=== PATIENT | female | born 1945 | race Caucasian/White ===

== ENCOUNTER → 2018-03-17 01:29 | Outpatient (CLI) | payer OTHER, SELFPAY ==
[2018-03-17 10:34] LABS: INR 2.5 (1.0-3.5); Prothrombin Time 23.3 sec (9.3-10.8)
== END ==
PROVIDERS: PCP Family Medicine; Visit Provider Family Medicine
DX: I48.91 Unspecified atrial fibrillation (principal); Z79.01 Long term (current) use of anticoagulants
CPT/HCPCS: 36415; 85610

== ENCOUNTER 2018-04-24 01:20 | Outpatient (CLI) | payer OTHER, SELFPAY ==
[2018-04-24 08:28] LABS: Abs Immature Grans 0.04 k/cumm (0.0-0.09); Absolute Basophil Count 0.04 k/cumm (0.0-0.2); Absolute Eosinophil Count 0.52 k/cumm (0.0-0.7); Absolute Lymphocyte Count 1.97 k/cumm (1.2-3.4); Absolute Monocyte Count 0.82 k/cumm (0.11-0.7); Absolute Neutrophil Count 5.77 k/cumm (1.2-6.7); Basophils % 0.4; Eosinophils % 5.7; HCT 30.5 % (36.0-46.0); HGB 9.3 g/dL (12.0-15.5); Immature Grans % 0.4; Lymphocytes % 21.5; Mean Corp. HGB Concentration 30.5 g/dL (32.0-36.0); Mean Corpuscular Volume 88.4 fL (80-95); Mean Platelet Volume 8.2 fL (8.0-11.0); Platelet Count 546 x1000/uL (130-400); RBC 3.45 m/cumm (4.00-5.20); RBC Distribution Width 16.6 % (11.7-14.6); White Blood Cell Count 9.16 k/cumm (4.4-10.8)
[2018-04-24 08:39] LABS: Prothrombin Time 36.9 sec (9.3-10.8)
[2018-04-24 08:49] LABS: Hypochromasia 2+; Polychromasia Present
[2018-04-24 09:23] LABS: Anion Gap 10.2 mmol/L (3-11); BUN 61 mg/dL (7-18); CO2 24.8 mmol/L (21.0-32.0); CREATININE 2.03 mg/dL (0.55-1.02); Calcium 8.6 mg/dL (8.5-10.1); Chloride 105 mmol/L (98-107); Estimated GFR 24.14 (mL/min/1.73m2); Glucose 100 mg/dL (70-100); Potassium 5.4 mmol/L (3.5-5.1); Sodium 140 mmol/L (136-145)
== END 2018-04-24 01:40 ==
PROVIDERS: PCP Family Medicine; Visit Provider Family Medicine
DX: I48.91 Unspecified atrial fibrillation (principal); Z79.01 Long term (current) use of anticoagulants; N18.9 Chronic kidney disease, unspecified
CPT/HCPCS: 36415; 80048; 85025; 85610

== ENCOUNTER 2018-05-07 08:21 | Inpatient (IN) | payer OTHER, SELFPAY ==
[2018-05-07] VITALS (99 sets, daily range): BP systolic 57–145; BP diastolic 22–95; PULSE 47–91; RESP 14–31; TEMP 36–37.1; O2SAT 76–100
--- NOTE | 2018-05-07 08:35 | DI.RAD_ITS ---
SYMPTOM/DIAGNOSIS: SOB PA AND LATERAL CHEST: 05/07/18 The heart is enlarged. There is some prominence of pulmonary interstitial markings raising the possibility of mild chronic CHF vs fibrosis. Comparison with previous examinations shows little interval change in appearance in comparison with examination of 01/26/2015. No gross pleural effusion seen. CONCLUSION: Cardiomegaly with question mild chronic CHF vs fibrotic change.
[2018-05-07 08:49] LABS: Abs Immature Grans 0.07 k/cumm (0.0-0.09); Absolute Basophil Count 0.06 k/cumm (0.0-0.2); Absolute Eosinophil Count 0.43 k/cumm (0.0-0.7); Absolute Lymphocyte Count 2.01 k/cumm (1.2-3.4); Absolute Monocyte Count 0.76 k/cumm (0.11-0.7); Basophils % 0.5; Eosinophils % 3.7; HCT 22.3 % (36.0-46.0); Immature Grans % 0.6; Lymphocytes % 17.2; Mean Corpuscular Hemoglobin 26.6 pg (27.0-33.0); Mean Corpuscular Volume 88.5 fL (80-95); Mean Platelet Volume 8.7 fL (8.0-11.0); Monocytes % 6.5; Neutrophils % 71.5; Platelet Count 543 x1000/uL (130-400); RBC 2.52 m/cumm (4.00-5.20); RBC Distribution Width 16.6 % (11.7-14.6); White Blood Cell Count 11.66 k/cumm (4.4-10.8)
--- NOTE | 2018-05-07 08:50 | ED.GENADUL_ITS ---
Discharge Plan Disposition Patient Disposition: [facility] INPATIENT Condition: Stable Discharge Details Chief Complaint: Palpitatns Clinical Impression: Acute hyperkalemia, Anemia, SOB (shortness of breath), Community acquired pneumonia, Acute kidney injury, Supratherapeutic INR Primary Care Provider: Cesar Nye ED Provider: Regan Georges Home Meds and New Rx's Prescriptions: No Action albuterol sulfate 90 mcg/actuation HFA aerosol inhaler 2 puff IH QID PRNRF: 0 dofetilide 500 mcg capsule 500 mcg PO Q12H RF: 0 blood sugar diagnostic [Accu-Chek Vickie Plus test strp] strip .ROUTE .MEDSUPPLY Qty: 20 RF: 0 blood sugar diagnostic strip .ROUTE .MEDSUPPLY Qty: 20 RF: 0 furosemide [Lasix] 20 mg tablet 20 mg PO DAILY RF: 0 levothyroxine 25 mcg capsule 25 mcg PO DAILY RF: 0 lisinopril 5 mg tablet 5 mg PO BID RF: 0 magnesium chloride 64 mg tablet,delayed release (DR/EC) 64 mg PO BID RF: 0 metformin 500 mg tablet 500 mg PO BID RF: 0 metoprolol succinate 100 mg tablet extended release 24 hr 100 mg PO DAILY RF: 0 simvastatin 10 mg tablet 10 mg PO QPM RF: 0 warfarin 5 mg tablet 5 mg PO DIRECTED RF: 0 Medical Decision Making This is a pleasant 72-year-old female with history of A. fib, who takes the antiarrythmic Tycosin who presents today for palpitations, fatigue and shortness of breath. Her symptoms began this morning, she took her antiarrhythmic medication and had significant improvement/near resolution of her symptoms. She continues to be short of breath and fatigue though. Last stress test was 1 year ago. Physical exam shows no significant abnormalities. She denies any systemic symptoms of fever, chills, or productive cough. We will evaluate for potential electrolyte abnormalities, perform EKG and chest x- ray, and reassess the patient. EKG 8: 31 Rate 73, intervals normal, sinus rhythm, no ST elevation or depression, no Q waves. No T wave inversions. Minimal peaking of the T waves in V3, no other abnormalities. 10:17 a.m. Patient's laboratory workup has returned. She does demonstrate mild anemia at 6.7, hyperkalemia, acute kidney injury, elevated BUN, and supratherapeutic INR at 4.9. Chest x-ray does show questionable pneumonia in the retrocardiac region. The patient denies any history of melena, diarrhea, or dark tarry stools. We will perform a Hemoccult however I feel she is certainly not having a severe GI bleed and does not require surgical intervention at this time. There may be a chronic component to this anemia with her supratherapeutic INR. We will start Rocephin for community-acquired pneumonia, however she is allergic to doxycycline and tetracycline's so we will give azithromycin with monitoring for her community-acquired pneumonia. She will get albuterol, calcium gluconate, and 5 units of insulin secondary to her renal failure for her hyperkalemia. We will hold off on the bicarb secondary to her renal issues. We will hold on her Coumadin dosing at this time. With no significant active bleeding I do not think that PCC or IV vitamin K is indicated. EKG shows no evidence of STEMI. No significant arrhythmia. I discussed the case with Dr. olson, he agrees with the assessment and plan. The patient will be admitted to the ICU for further management I have extensively reviewed the treatment plan with the patient. I have addressed all patient concerns at this time. I have also discussed the plan with the admitting physician and they agree with the current assessment and plan and have agreed to assume responsibility for the patient. All parties demonstrate verbal understanding and agreement with our assessment and plan at this time. HPI General Date/Time Provider Initiated Documentation: 05/07/18 08:22 . HPI Narrative: This is a pleasant 72-year-old female with a past medical history of atrial fibrillation for which she received an ablation and now take Tykosin daily, as well as chronic kidney disease, Coumadin, diabetes, hypertension, and thyroid disease. She presents today with palpitations, fatigue, and shortness of breath. Patient states that this morning when she awoke at 3 AM she noticed some occasional palpitations but went back to bed. This morning when she awoke at 8 AM she felt more noticeable palpitations, fatigue and shortness of breath. She took her antiarrhythmic medication, and since then has had a resolution of the palpitations but the continuation of her other symptoms. She denies any chest pressure, chest heaviness, arm pain neck pain or shoulder pain. No radiation of her symptoms. Her symptoms are worsened with exertion, improved by nothing aside for her medication. She denies any cough, fever, chills, headache, fainting, numbness, tingling, weakness. She denies any other systemic symptoms. She denies any history of cardiac disease. Last stress test is 1 year ago and it was normal. She does not smoke or drink. She denies any pertinent family history, recent surgeries, or IV or illicit drug use Related Data Home Medications Medication Instructions Recorded Confirmed albuterol sulfate HFA 90 2 puff IH QID PRN 04/17/18 05/07/18 mcg/actuation aerosol inhaler blood sugar diagnostic strips #20 each 04/17/18 04/17/18 blood sugar diagnostic strips #20 each 04/17/18 04/25/18 dofetilide 500 mcg capsule 500 mcg PO Q12H 04/17/18 05/07/18 furosemide 20 mg tablet 20 mg PO DAILY 04/17/18 05/07/18 levothyroxine 25 mcg capsule 25 mcg PO DAILY 04/17/18 05/07/18 lisinopril 5 mg tablet 5 mg PO BID tab 04/17/18 05/07/18 magnesium 64 mg (magnesium 64 mg PO BID tab 04/17/18 05/07/18 chloride) tablet,delayed release metformin 500 mg tablet 500 mg PO BID 04/17/18 05/07/18 metoprolol succinate ER 100 mg 100 mg PO DAILY 04/17/18 05/07/18 tablet,extended release 24 hr simvastatin 10 mg tablet 10 mg PO QPM 04/17/18 05/07/18 warfarin 5 mg tablet 5 mg PO DIRECTED tab 04/17/18 05/07/18 Allergies Allergy/AdvReac Type Severity Reaction Status Date / Time aspirin Allergy Hives Unverified 05/07/18 08:51 Penicillins Allergy Unverified 05/07/18 08:51 tetracycline Allergy Unverified 05/07/18 08:51 adhesive AdvReac Intermediate Topical Unverified 05/07/18 08:51 Irritation Review of Systems Review of Systems All systems reviewed & are unremarkable except as noted in HPI and below PFSH Family History Mother Thoracic aneurysm, ruptured Personal history of malignant neoplasm Father Heart disease Myocardial infarction Cerebrovascular accident Grandfather Heart disease Cerebrovascular accident Grandfather Heart disease Grandmother Heart disease Grandmother Personal history of malignant neoplasm Social History household members: other details: 5 current occupational status: employed current occupation: [employer] frequency: 1-2 times per week duration: 45-60 minutes/day Smoking/Tobacco Use Status: Former Tobacco Use how long ago did patient quit smokin alcohol intake: never Surgical History Abdominal hysterectomy Appendectomy Bilateral salpingectomy with oophorectomy Recurrent major depression in partial remission (~10/2012) Replacement of total knee joint (~12/2007) Sigmoidoscopy (~08/2009) Exam Narrative Exam Narrative: 1.Const: Well-nourished, Well-developed, appearing stated age 2.Eyes: PERRL, no conjunctival injection, and symmetrical lids. 3.ENT: Atraumatic external nose and ears. Moist MM. Neck: Symmetric, trachea midline, No thyromegaly. 4.CVS: +S1/S2, regular, no arrhythmia, no murmurs or gallops. Peripheral pulses 2+ and equal in all extremities. Brisk capillary refill in all extremities. Radial pulses are +2 bilaterally. 5.RESP: Unlabored respiratory effort. Clear to auscultation bilaterally. No wheezes rales or rhonchi 6.GI: Soft, Nontender/Nondistended, No hepatosplenomegaly. No guarding or rebound. Rectal exam performed at bedside demonstrated no gross melanotic stool. Stool was brown in color. No active evidence of clots. 7.MSK: Normocephalic/Atraumatic, Extremities w/o deformity or ttp No cyanosis or clubbing, Normal movement of all extremities 8.Skin: Warm, Dry. No rashes or lesions. 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 Sensation grossly intact, no focal neurologic deficits. 10.Psych: (AAO) x3. Appropriate mood and affect
[2018-05-07 09:02] LABS: Absolute Neutrophil Count 8.34 k/cumm (1.2-6.7); Prothrombin Time 45.4 sec (9.3-10.8)
[2018-05-07 09:03] LABS: HGB 6.7 g/dL (12.0-15.5)
[2018-05-07 09:11] LABS: ALT 19 U/L (12-78); AST 14 U/L (15-37); Albumin 2.7 g/dL (3.4-5.0); Alkaline Phosphatase 56 U/L (46-116); Anion Gap 11.4 mmol/L (3-11); Bilirubin, Total 0.3 mg/dL (0.2-1.0); CO2 21.6 mmol/L (21.0-32.0); CREATININE 2.71 mg/dL (0.55-1.02); Calcium 8.6 mg/dL (8.5-10.1); Chloride 106 mmol/L (98-107); Glucose 143 mg/dL (70-100); Magnesium 2.4 mg/dL (1.8-2.4); Potassium 5.6 mmol/L (3.5-5.1); Sodium 139 mmol/L (136-145); TSH 3.22 uIU/mL (0.358-3.74)
[2018-05-07 09:12] LABS: Anisocytosis 1+; BUN 148 mg/dL (7-18); Diff Comment RBC Morph Reviewed; Troponin I < 0.02 ng/mL (0.00-0.06)
[2018-05-07 09:13] LABS: Basophilic Stippling Present; Hypochromasia 1+; Polychromasia Present
--- NOTE | 2018-05-07 09:18 | DI.VRAD_ITS ---
EXAM: XR Chest, 2 Views EXAM DATE/TIME: 05/07/2018 8:36 AM CLINICAL HISTORY: 72 years old, female; Signs and symptoms; Shortness of breath TECHNIQUE: XR of the chest, 2 views. COMPARISON: CR CHEST 2 VIEWS PA,LAT 01/26/2015 7:30 PM FINDINGS: Lungs: Mild opacity in the retrocardiac region may represent mild atelectasis or pneumonia. Pleural space: Unremarkable. No pleural effusion. No pneumothorax. Heart/Mediastinum: Cardiomegaly and mild vascular prominence may represent interstitial edema. Bones/joints: Degenerative changes in the thoracic spine Osseous structures are stable IMPRESSION: 1. Cardiomegaly and mild vascular prominence may represent interstitial edema. 2. Mild opacity in the retrocardiac region may represent mild atelectasis or pneumonia. Dictated and Authenticated by: Rachael Castro MD. Ordering:AISHA ROBERTS MD
[2018-05-07 09:20] LABS: INR 4.9 (1.0-3.5)
[2018-05-07] MEDS: Insulin REGULAR-Human 100 UNITS/ML UNIT SC (09:39)
[2018-05-07] MEDS: Albuterol 2.5 MG/3 ML INH SOLN VIAL 7.5 MG UPD (09:42)
[2018-05-07] MEDS: Calcium Gluconate 4.65 MEQ/10 ML VIAL 4.65 MG IVP (09:42)
[2018-05-07] MEDS: AZITHROMYCIN 500 MG in Normal Saline 250 ML 250 MG IVPB (10:33)
--- NOTE | 2018-05-07 16:17 | HPE_ITS ---
Date of service: 05/07/18 Time of Service: 16:04 Assessment and Plan (1) GI bleeding: Start date: 05/07/18 Current visit: Yes Status: Acute Upper GI bleed based on history. She is on warfarin anticoagulation for atrial fibrillation. She is hemodynamically stable. We will hold on reversing the warfarin at this point. Transfuse 1 unit of packed red cells. Monitor vital signs. She will need upper and lower endoscopy once stabilized. I did discuss the case with Dr. Ferreira from general surgery and would consult her if needed. I think the elevated BUN and creatinine are related to the metabolizing of acute blood loss in the GI tract. (2) Hyperkalemia: Current visit: Yes Status: Acute Potassium mildly elevated at 5.6. She got calcium gluconate and insulin in the ER. Rechecking BMP this afternoon. Will monitor and treat accordingly. (3) Atrial fibrillation: Current visit: Yes Status: Chronic She is in a sinus rhythm, rate well controlled. Or holding the warfarin. Continue the Tikosyn. (4) Diabetes mellitus: Current visit: No Status: Chronic Controlled with just oral metformin which we are holding. Will check fingersticks and provide sliding scale coverage. History of Present Illness Chief Complaint: GI bleeding on anticoagulation Narrative: This is a 72-year-old woman on warfarin because of paroxysmal atrial fibrillation who began to feel increasingly weak and fatigued over the last 24 hours. She recently had a stiff neck for the last 3 days treating it with acetaminophen. She awoke during the night feeling palpitations, her eyes felt heavy. She took her Tikosyn and was feeling somewhat better. She self-referred to the emergency room. In the emergency room she was in a sinus rhythm at a normal rate. Her initial labs showed a hemoglobin of 6.7 and potassium elevated at 5.6. Her BUN elevated at 148 and creatinine 2.71. INR was 4.9. A chest x-ray showed a question of a retrocardiac infiltrate. She received ceftriaxone and azithromycin and was ordered for 1 unit of packed red cells. Her anticoagulation was not reversed. Review of Systems Constitutional Reports lethargy, Reports weakness and Reports other (Eyes felt heavy) Cardiovascular Denies chest pain, Reports irregular heart rhythm and Reports dyspnea on exertion Respiratory Denies cough and Reports dyspnea on exertion Comments: No PND Gastrointestinal Denies abdominal pain, Reports melena (She has large hemorrhoids and occasionally sees bright red blood, recently saw some blackish colored stools), Denies hematochezia, Denies tenesmus, Reports change in stool character, Denies coffee ground emesis and Denies excessive flatus Genitourinary Denies dysuria Musculoskeletal Denies arthralgias Integumentary/Breasts Denies bleeding lesions and Denies new lesions Neurologic Reports system reviewed and no additional complaints, except as docu and Reports weakness Hematologic/Lymphatic Denies easy bruising PFSH Family History Mother Thoracic aneurysm, ruptured Personal history of malignant neoplasm Father Heart disease Myocardial infarction Cerebrovascular accident Grandfather Heart disease Cerebrovascular accident Grandfather Heart disease Grandmother Heart disease Grandmother Personal history of malignant neoplasm Medical History GI bleeding (Acute) H/O hysterectomy for benign disease (Chronic) Diverticulitis (Chronic) Diabetes type 2, controlled (Chronic) Hypothyroid (Chronic) Atrial fibrillation (Chronic) Social History household members: other details: 5 current occupational status: employed current occupation: [employer] frequency: 1-2 times per week duration: 45-60 minutes/day Smoking/Tobacco Use Status: Former Tobacco Use how long ago did patient quit smokin alcohol intake: never Surgical History History of appendectomy (Chronic) Replacement of total knee joint (~12/2007) Sigmoidoscopy (~08/2009) Abdominal hysterectomy Bilateral salpingectomy with oophorectomy Appendectomy Recurrent major depression in partial remission (~10/2012) Meds Home Medications Medication Instructions Recorded Confirmed Type albuterol sulfate HFA 90 2 puff IH QID PRN 04/17/18 05/07/18 History mcg/actuation aerosol inhaler blood sugar diagnostic strips #20 each 04/17/18 04/17/18 History blood sugar diagnostic strips #20 each 04/17/18 04/25/18 History dofetilide 500 mcg capsule 500 mcg PO Q12H 04/17/18 05/07/18 History furosemide 20 mg tablet 20 mg PO DAILY 04/17/18 05/07/18 History levothyroxine 25 mcg capsule 25 mcg PO DAILY 04/17/18 05/07/18 History lisinopril 5 mg tablet 5 mg PO BID tab 04/17/18 05/07/18 History magnesium 64 mg (magnesium 64 mg PO BID tab 04/17/18 05/07/18 History chloride) tablet,delayed release metformin 500 mg tablet 500 mg PO BID 04/17/18 05/07/18 History metoprolol succinate ER 100 mg 100 mg PO DAILY 04/17/18 05/07/18 History tablet,extended release 24 hr simvastatin 10 mg tablet 10 mg PO QPM 04/17/18 05/07/18 History warfarin 5 mg tablet 5 mg PO DIRECTED tab 04/17/18 05/07/18 History Allergies Allergy/AdvReac Type Severity Reaction Status Date / Time aspirin Allergy Hives Unverified 05/07/18 08:51 Penicillins Allergy Unverified 05/07/18 08:51 tetracycline Allergy Unverified 05/07/18 08:51 adhesive AdvReac Intermediate Topical Unverified 05/07/18 08:51 Irritation Exam Const General: cooperative, comfortable and no acute distress Nutritional Appearance: overweight Orientation: alert, awake and oriented x3 HENMT Head: normal to inspection Ears: hearing grossly normal bilaterally Face and sinus: normal facial exam Eyes General: appearance normal, both eyes and all related structures Sclera: sclerae normal Cornea: corneas normal Neck Neck: normal visual inspection (Limited by adipose) Chest Chest: normal inspection of the chest Resp Effort & Inspection: normal respiratory effort Auscultation: clear to auscultation bilaterally Cardio Rate: regular rate Rhythm: regular rhythm Heart Sounds: murmur (3/6 systolic murmur, harsh) GI Inspection: normal to inspection and large pannus Palpation: soft, no masses and nontender Rectal Exam - female: other (Heme positive by rectal exam in the emergency room) Skin General skin exam: no rashes or lesions noted Neuro General: no focal motor deficits Extrem General: no clubbing, cyanosis or edema Psych Appearance: grossly normal Mental Status: mental status grossly normal Speech and Movement: speech and movement normal Results Labs : 05/07/18 08:45 05/07/18 08:45 Laboratory Results - last 24 hr 05/07/18 05/07/18 05/07/18 08:45 08:45 08:45 WBC 11.66 H RBC 2.52 L Hgb 6.7 L* Hct 22.3 L MCV 88.5 MCH 26.6 L MCHC 30.0 L RDW 16.6 H Plt Count 543 H MPV 8.7 Immature Gran % 0.6 Neutrophils % 71.5 Lymphocytes % 17.2 Monocytes % 6.5 Eosinophils % 3.7 Basophils % 0.5 Absolute Neutrophils 8.34 H Absolute Lymphocytes 2.01 Absolute Monocytes 0.76 H Absolute Eosinophils 0.43 Absolute Basophils 0.06 Differential Comment Rbc morph reviewed RBC Morphology See below Polychromasia Present Hypochromasia 1+ Basophilic Stippling Present Anisocytosis 1+ PT 45.4 H INR 4.9 H* APTT 43.0 H Sodium 139 Potassium 5.6 H Chloride 106 Carbon Dioxide 21.6 Anion Gap 11.4 H BUN 148 H* Creatinine 2.71 H Estimated GFR/1.73 m2 17.30 Glucose 143 H Calcium 8.6 Magnesium 2.4 Total Bilirubin 0.3 AST 14 L ALT 19 Alkaline Phosphatase 56 Troponin I < 0.02 Total Protein 7.0 Albumin 2.7 L TSH 3.22 Patient ABO/Rh Antibody Screen Crossmatch 05/07/18 05/07/18 09:25 09:25 WBC RBC Hgb Hct MCV MCH MCHC RDW Plt Count MPV Immature Gran % Neutrophils % Lymphocytes % Monocytes % Eosinophils % Basophils % Absolute Neutrophils Absolute Lymphocytes Absolute Monocytes Absolute Eosinophils Absolute Basophils Differential Comment RBC Morphology Polychromasia Hypochromasia Basophilic Stippling Anisocytosis PT INR APTT Sodium Potassium Chloride Carbon Dioxide Anion Gap BUN Creatinine Estimated GFR/1.73 m2 Glucose Calcium Magnesium Total Bilirubin AST ALT Alkaline Phosphatase Troponin I Total Protein Albumin TSH Patient ABO/Rh Cancelled A Negative Antibody Screen Cancelled Negative Crossmatch See Detail
[2018-05-07 17:08] LABS: Anion Gap 12.9 mmol/L (3-11); CO2 20.1 mmol/L (21.0-32.0); CREATININE 2.58 mg/dL (0.55-1.02); Calcium 8.9 mg/dL (8.5-10.1); Chloride 107 mmol/L (98-107); Estimated GFR 18.31 (mL/min/1.73m2); Glucose 97 mg/dL (70-100); Sodium 140 mmol/L (136-145)
[2018-05-07 17:10] LABS: BUN 156 mg/dL (7-18); Potassium 6.1 mmol/L (3.5-5.1)
[2018-05-07] MEDS: Normal Saline 1,000 ML 75 ML IV (17:20)
--- NOTE | 2018-05-07 19:06 | NUR.NOTE ---
This nurse discovered that we did not carry the patient;s Dofetilide and asked pt to have spouse bring it in. He did so and this nurse looked up the medication on [employer] and also called the [facility] pharmacy service who also verified. This nurse then administered the medication and put the bottle in the drawer so that [facility] pharmacy can verify it in the AM. Nursing Note:
[2018-05-07] MEDS: Simvastatin 10 MG TAB PO (19:42)
[2018-05-07] MEDS: Magnesium Chloride 64 MG TABCR PO (19:42)
[2018-05-07] MEDS: Docusate Sodium 100 MG CAP PO (19:54)
[2018-05-07] MEDS: Normal Saline Flush 10 ML SYR IVP (21:15)
[2018-05-07] MEDS: Acetaminophen 325 MG TAB PO (21:54)
[2018-05-08] VITALS (91 sets, daily range): BP systolic 60–149; BP diastolic 23–85; PULSE 51–106; RESP 14–24; TEMP 35.6–36.9; O2SAT 91–100
[2018-05-08] MEDS: Acetaminophen 325 MG TAB PO (02:07)
[2018-05-08] MEDS: Levothyroxine 25 MCG TAB PO (06:34)
[2018-05-08 07:11] LABS: Abs Immature Grans 0.13 k/cumm (0.0-0.09); Absolute Eosinophil Count 0.38 k/cumm (0.0-0.7); Absolute Lymphocyte Count 2.65 k/cumm (1.2-3.4); Absolute Monocyte Count 0.84 k/cumm (0.11-0.7); Absolute Neutrophil Count 7.53 k/cumm (1.2-6.7); Basophils % 0.3; Eosinophils % 3.3; Immature Grans % 1.1; Lymphocytes % 22.9; Mean Corp. HGB Concentration 30.5 g/dL (32.0-36.0); Mean Corpuscular Hemoglobin 26.8 pg (27.0-33.0); Mean Corpuscular Volume 87.8 fL (80-95); Mean Platelet Volume 9.3 fL (8.0-11.0); Monocytes % 7.3; Neutrophils % 65.1; Platelet Count 435 x1000/uL (130-400); RBC 2.13 m/cumm (4.00-5.20); RBC Distribution Width 16.4 % (11.7-14.6); White Blood Cell Count 11.57 k/cumm (4.4-10.8)
[2018-05-08 07:15] LABS: Absolute Basophil Count 0.03 k/cumm (0.0-0.2)
[2018-05-08 07:19] LABS: HCT 18.7 % (36.0-46.0); HGB 5.7 g/dL (12.0-15.5)
[2018-05-08 07:26] LABS: Prothrombin Time 40.1 sec (9.3-10.8)
[2018-05-08 07:28] LABS: ALT 18 U/L (12-78); AST 15 U/L (15-37); Albumin 2.4 g/dL (3.4-5.0); Alkaline Phosphatase 44 U/L (46-116); Anion Gap 9.4 mmol/L (3-11); Bilirubin, Total 0.2 mg/dL (0.2-1.0); CO2 20.6 mmol/L (21.0-32.0); CREATININE 2.36 mg/dL (0.55-1.02); Calcium 8.5 mg/dL (8.5-10.1); Chloride 108 mmol/L (98-107); Estimated GFR 20.29 (mL/min/1.73m2); Glucose 111 mg/dL (70-100); Potassium 5.5 mmol/L (3.5-5.1); Sodium 138 mmol/L (136-145); Total Protein 6.1 g/dL (6.4-8.2)
[2018-05-08 07:38] LABS: INR 4.3 (1.0-3.5)
[2018-05-08 07:39] LABS: BUN 159 mg/dL (7-18)
[2018-05-08] MEDS: Normal Saline 1,000 ML 75 ML IV (08:02)
[2018-05-08] MEDS: Magnesium Chloride 64 MG TABCR PO (08:48)
[2018-05-08] MEDS: Phytonadione 5 MG TABLET PO (09:42)
--- NOTE | 2018-05-08 09:54 | PDOC.CMIN ---
- If Service Date Differs Date of service: 05/08/18 Time of Service: 09:54 Care Management Initial Assess REASON FOR HOSPITALIZATION:: GI bleed PAST MEDICAL HISTORY/PAST SURGICAL HISTORY:: A-fib, DM, restless leg, LAI, morbid obesity, hypothyroidisim, CHF, asthma, osteoarthritis, chronic kidney disease, depression. Surgical Hx: appendectomy,hysterectomy. 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. She lives with her spouse Bentley in [place], [place] she has two grown sons that live local. She enjoys caring for her 5 dogs. She is independent with ADL's and transportation. CURRENT FUNCTIONAL STATUS:: Maliha is lying in bed in the ICU her spouse is at her side. She states she does have a INR check it has been once a month recently. She does follow up with her provider frequently. She states she is feeling tierd she did just return from EGD. She states she was told she has bleeding ulcers and some where cauderized while in the OR. ADVANCE DIRECTIVES:: On file at [facility] agent Bentley Has patient been provided with information about the portal?: Yes Did the patient sign up for the portal?: No CODE STATUS:: Full Code INSURANCE COVERAGE / FINANCIAL ISSUES:: [email or web address] [facility] CURRENT HOME/COMMUNITY SERVICES/EQUIPMENT:: CPAP supplied by [facility] PRIMARY CARE PHYSICIAN:: POTENTIAL DISCHARGE NEEDS:: Follow up appointment with primary care scheduled prior to discharge. PATIENT/FAMILY EDUCATION NEEDS:: Discharge education, follow up plan of care, ask me three and self management discussion. ANTICIPATED BARRIERS TO DISCHARGE:: None identified at this time TRANSPORTATION:: Via private car with spouse at time of discharge PLAN:: Maliha is being cared for in the ICU. She will have an EGD today. Maliha's coumadin in on hold at this time. She will be discharged home when medically ready. She will need to have a follow up appointment scheduled with primary care provider prior to discharge. Anticipate no addtional services at time of discharge. CM to continue to provide support to patient and family discharge planning.
--- NOTE | 2018-05-08 10:07 | INITIAL_ITS ---
- If Service Date Differs Date of service: 05/08/18 Time of Service: 09:54 Care Management Initial Assess REASON FOR HOSPITALIZATION:: GI bleed PAST MEDICAL HISTORY/PAST SURGICAL HISTORY:: A-fib, DM, restless leg, LAI, morbid obesity, hypothyroidisim, CHF, asthma, osteoarthritis, chronic kidney disease, depression. Surgical Hx: appendectomy,hysterectomy. 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 She lives with her spouse Bentley in [place], [place] she has two grown sons that live local. She enjoys caring for her 5 dogs. She is independent with ADL's and transportation. CURRENT FUNCTIONAL STATUS:: Maliha is lying in bed in the ICU her spouse is at her side. She states she does have a INR check it has been once a month recently. She does follow up with her provider frequently. She states she is feeling tierd she did just return from EGD. She states she was told she has bleeding ulcers and some where cauderized while in the OR. ADVANCE DIRECTIVES:: On file at [facility] agent Bentley Has patient been provided with information about the portal?: Yes Did the patient sign up for the portal?: No CODE STATUS:: Full Code INSURANCE COVERAGE / FINANCIAL ISSUES:: [employer] [facility] CURRENT HOME/COMMUNITY SERVICES/EQUIPMENT:: CPAP supplied by [facility] PRIMARY CARE PHYSICIAN:: POTENTIAL DISCHARGE NEEDS:: Follow up appointment with primary care scheduled prior to discharge. PATIENT/FAMILY EDUCATION NEEDS:: Discharge education, follow up plan of care, ask me three and self management discussion. ANTICIPATED BARRIERS TO DISCHARGE:: None identified at this time TRANSPORTATION:: Via private car with spouse at time of discharge PLAN:: Maliha is being cared for in the ICU. She will have an EGD today. Maliha' s coumadin in on hold at this time. She will be discharged home when medically ready. She will need to have a follow up appointment scheduled with primary care provider prior to discharge. Anticipate no addtional services at time of discharge. CM to continue to provide support to patient and family discharge planning.
--- NOTE | 2018-05-08 10:37 | HPE_ITS ---
Date of service: 05/08/18 Time of Service: 09:30 Assessment and Plan (1) GI bleeding: Current visit: Yes Status: Acute A\\ 72 year old female admitted last night with anemia and melena on rectal exam. Had a large stool today which was black and tarry. Patient with history of back pain and neck stiffness who has been taking a lot of NSAID's. She also is on Coumadin and was supratherapeutic on admission. She was given 1 unit of blood last night and 2 more units right now as well as 1 unit of FFP. P\\ EGD under General anesthesia Risks, benefits and complications have been reviewed. Complications include but are not limited to bleeding, pain, perforation, aspiration and adverse reaction to the medications. More recommendations pending her EGD. History of Present Illness Chief Complaint: GI Bleed Consults Consult date: 05/08/18 Requesting physician: Gurpreet Lizarraga Narrative: Mrs. Iqbal is a 72 year old admitted with pneumonia and GI bleed. She had a few Melena type stools today and her Hgb droped to 5.2 after 1 unit of blood yesterday. She was also noted to be supratherapeutic on her Coumadin and this was not reversed when she was admitted. She denies any N/V or abdominal pain. She does relate taking increased amount of Advil for a stiff neck. She had a colonoscopy 5 years ago and was found to have diverticulosis and a adenomatous polyp. There is no family history of colon Cancer. Patient became slightly hypotensive this am but now Bp is stable. She is currently getting another 2 units of blood and FFP has been ordered. She was also given Vitamin K. PMHX is significant for obesity, hypertension, DM, Sleep apnea. Review of Systems Constitutional Reports fatigue and Reports lethargy Cardiovascular Denies chest pain, Denies chest pain at rest, Denies dyspnea and Reports dyspnea on exertion Respiratory Denies dyspnea and Reports dyspnea on exertion Gastrointestinal Reports as per HPI Endocrine Reports system reviewed and no additional complaints, except as docu and Reports fatigue PFSH Family History Mother Thoracic aneurysm, ruptured Personal history of malignant neoplasm Father Heart disease Myocardial infarction Cerebrovascular accident Grandfather Heart disease Cerebrovascular accident Grandfather Heart disease Grandmother Heart disease Grandmother Personal history of malignant neoplasm Medical History Hyperkalemia (Acute) GI bleeding (Acute) H/O hysterectomy for benign disease (Chronic) Diverticulitis (Chronic) Diabetes type 2, controlled (Chronic) Hypothyroid (Chronic) Atrial fibrillation (Chronic) Social History household members: other details: 5 current occupational status: employed 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 frequency: 1-2 times per week duration: 45-60 minutes/day Smoking/Tobacco Use Status: Former Tobacco Use how long ago did patient quit smokin alcohol intake: never Surgical History History of appendectomy (Chronic) Replacement of total knee joint (~12/2007) Sigmoidoscopy (~08/2009) Abdominal hysterectomy Bilateral salpingectomy with oophorectomy Appendectomy Recurrent major depression in partial remission (~10/2012) Meds Home Medications Medication Instructions Recorded Confirmed Type albuterol sulfate HFA 90 2 puff IH QID PRN 04/17/18 05/07/18 History mcg/actuation aerosol inhaler blood sugar diagnostic strips #20 each 04/17/18 04/17/18 History blood sugar diagnostic strips #20 each 04/17/18 04/25/18 History dofetilide 500 mcg capsule 500 mcg PO Q12H 04/17/18 05/07/18 History furosemide 20 mg tablet 20 mg PO DAILY 04/17/18 05/07/18 History levothyroxine 25 mcg capsule 25 mcg PO DAILY 04/17/18 05/07/18 History lisinopril 5 mg tablet 5 mg PO BID tab 04/17/18 05/07/18 History magnesium 64 mg (magnesium 64 mg PO BID tab 04/17/18 05/07/18 History chloride) tablet,delayed release metformin 500 mg tablet 500 mg PO BID 04/17/18 05/07/18 History metoprolol succinate ER 100 mg 100 mg PO DAILY 04/17/18 05/07/18 History tablet,extended release 24 hr simvastatin 10 mg tablet 10 mg PO QPM 04/17/18 05/07/18 History warfarin 5 mg tablet 5 mg PO DIRECTED tab 04/17/18 05/07/18 History Allergies Allergy/AdvReac Type Severity Reaction Status Date / Time aspirin Allergy Hives Unverified 05/07/18 08:51 Penicillins Allergy Unverified 05/07/18 08:51 tetracycline Allergy Unverified 05/07/18 08:51 adhesive AdvReac Intermediate Topical Unverified 05/07/18 08:51 Irritation Exam Const General: cooperative and no acute distress Nutritional Appearance: obese (BMI >50) morbidly obese Resp Effort & Inspection: normal respiratory effort Auscultation: clear to auscultation bilaterally Cardio Rate: regular rate Rhythm: regular rhythm Heart Sounds: no gallops, murmur and no rubs GI Palpation: soft and nontender Auscultation: normal bowel sounds Results Labs : 05/08/18 06:18 05/08/18 06:18 Laboratory Results - last 24 hr 05/07/18 05/07/18 05/08/18 09:25 16:45 06:18 WBC RBC Hgb Hct MCV MCH MCHC RDW Plt Count MPV Immature Gran % Neutrophils % Lymphocytes % Monocytes % Eosinophils % Basophils % Absolute Neutrophils Absolute Lymphocytes Absolute Monocytes Absolute Eosinophils Absolute Basophils PT INR Sodium 140 138 Potassium 6.1 H* 5.5 H Chloride 107 108 H Carbon Dioxide 20.1 L 20.6 L Anion Gap 12.9 H 9.4 BUN 156 H* 159 H* Creatinine 2.58 H 2.36 H Estimated GFR/1.73 m2 18.31 20.29 Glucose 97 111 H Calcium 8.9 8.5 Total Bilirubin 0.2 AST 15 ALT 18 Alkaline Phosphatase 44 L Total Protein 6.1 L Albumin 2.4 L Patient ABO/Rh A Negative Antibody Screen Negative Crossmatch See Detail 05/08/18 05/08/18 06:18 06:18 WBC 11.57 H RBC 2.13 L Hgb 5.7 L* Hct 18.7 L* MCV 87.8 MCH 26.8 L MCHC 30.5 L RDW 16.4 H Plt Count 435 H MPV 9.3 Immature Gran % 1.1 Neutrophils % 65.1 Lymphocytes % 22.9 Monocytes % 7.3 Eosinophils % 3.3 Basophils % 0.3 Absolute Neutrophils 7.53 H Absolute Lymphocytes 2.65 Absolute Monocytes 0.84 H Absolute Eosinophils 0.38 Absolute Basophils 0.03 PT 40.1 H INR 4.3 H* D Sodium Potassium Chloride Carbon Dioxide Anion Gap BUN Creatinine Estimated GFR/1.73 m2 Glucose Calcium Total Bilirubin AST ALT Alkaline Phosphatase Total Protein Albumin Patient ABO/Rh Antibody Screen Crossmatch
[2018-05-08] MEDS: Pantoprazole 40 MG VIAL IVP ×2 (11:08→20:23)
--- NOTE | 2018-05-08 12:02 | PHARADMIT ---
Admission Pharmacy Clinical Review ANEMIA Code Status Full Code Current Weight Wgt- 120 kg Renally Cleared and Narrow Therapeutic Index Meds CrCl~ 15.7 mL/min Meds-OK QTc Value / Action Taken na BP Control, Fever BP- 128/62 Tmax- 36.6C Electrolytes reviewed Na- 138 K+5.5 Mag-.4 DVT Prophylaxis No High INR Low H&H Opiate Usage / Scheduled Bowel Regimen Ordered No Yes Plt/SCr for Heparin / Enoxaparin Plts-435 SCr-2.36 INR for Warfarin INR-4.3 Got Vit-K H/H stable, WBC/Bands H&H-5.7/18.7 WBC- 11.57 Antibiotic appropriateness none Cultures and Sensitivities none Surgical ABX d/c within 24 hr NA DM control / Insulin Dosing BG-111 Aspart, Heart Failure (Check EF%) (KEELEY's, B-Block, Diuretics) Tikosyn, Lasix, Toprol-XL, IV to PO Switch No Home Meds Reviewed Yes Home Meds Not Ordered Warfarin, Lisinopril, MadChloride, Metformin, Comments Patient Own Dofetilide
--- NOTE | 2018-05-08 14:14 | DM INPTCON_ITS ---
DESCRIPTION/ASSESSMENT: Appreciate diabetes consult for Maliha Iqbal who is hospitalized with GI bleed. BMI 53 A1c 6.7 on 09/25. Home medication of 500mg Metformin twice daily. Hemoglobin 5.7. GFR 21. Blood sugars 107-130 not needing insulin correction at moderate level. INTERVENTION: Blood sugars excellent however they may not be accurate given the degree of iron deficiency and possible transfusions. No intervention suggested at this time. Will follow blood sugars and f/u as warranted. Will watch for symptoms of hypoglycemia.
[2018-05-08] MEDS: Albuterol/Ipratropium 3 ML UPD VIAL UPD (14:32)
[2018-05-08 16:18] LABS: HCT 21.4 % (36.0-46.0)
--- NOTE | 2018-05-08 16:18 | NUR.NOTE ---
DH documentation in worklist notes start and stop time of FFP given in or. this times are entered for him in [facility]
[2018-05-08 16:24] LABS: HGB 6.9 g/dL (12.0-15.5)
[2018-05-08 16:30] LABS: Potassium 5.1 mmol/L (3.5-5.1)
--- NOTE | 2018-05-08 16:43 | W.PM.PROGNOT ---
Assessment and Plan (1) GI bleeding: Current visit: Yes Status: Acute Acute GI bleed with active gastric ulcers. She is on IV Protonix twice daily and Carafate. Will keep n.p.o. overnight and trend her H&H. (2) Anemia: Current visit: Yes Status: Chronic Hemoglobin post 3 unit transfusion is 6.7. Will transfuse 2 more units of packed red cells. She has had 2 units of fresh frozen plasma (3) Atrial fibrillation with RVR: Current visit: Yes Status: Acute Heart rate has been stable and in a sinus rhythm. We will continue the dofetilide. She will not be a candidate for anticoagulation for at least 6 weeks. (4) Obstructive sleep apnea syndrome: Current visit: Yes Status: Acute She has her home CPAP unit. Continue to use as directed. (5) Hyperkalemia: Current visit: Yes Status: Acute Potassium level has been elevated. We are holding the lisinopril which she may need to be cautious with going forward. Some of this could be from metabolizing digested blood. Repeat level is down to 5.1. Subjective Patient reports: blood in stool Interval history since last seen: Patient admitted yesterday with presumed upper GI bleed. Overnight she had 2 large bloody bowel movements and this morning's hemoglobin was 5.7. She was taken to the OR by Dr. Deutsch for upper endoscopy and found to have numerous ulcers and also friability. She is now on IV PPI, Carafate , and getting further transfused. Her blood pressure did become somewhat soft mid morning and her home medications were held. She continues on the dofetilide. There has been no recurrent A. fib. She had an echocardiogram 2017 showing moderate aortic stenosis, normal LV function. Exam Narrative Exam Narrative: On exam she is sitting up in the chair, comfortable. Still not complaining of any abdominal pain or epigastric pain. Abdominal exam is benign. Objective Objective Clinical Data: Abnormal lab results 05/07/18 05/07/18 05/08/18 Range/Units 09:25 16:45 06:18 WBC (4.4-10.8) k/cumm RBC (4.00-5.20) m/cumm Hgb (12.0-15.5) g/dL Hct (36.0-46.0) % MCH (27.0-33.0) pg MCHC (32.0-36.0) g/dL RDW (11.7-14.6) % Plt Count (130-400) x1000/uL Absolute Neutrophils (1.2-6.7) k/cumm Absolute Monocytes (0.11-0.7) k/cumm PT (9.3-10.8) sec INR (1.0-3.5) Potassium 6.1 H* 5.5 H (3.5-5.1) mmol/L Chloride 108 H (98-107) mmol/L Carbon Dioxide 20.1 L 20.6 L (21.0-32.0) mmol/L Anion Gap 12.9 H (3-11) mmol/L BUN 156 H* 159 H* (7-18) mg/dL Creatinine 2.58 H 2.36 H (0.55-1.02) mg/dL Glucose 111 H (70-100) mg/dL Alkaline Phosphatase 44 L (46-116) U/L Total Protein 6.1 L (6.4-8.2) g/dL Albumin 2.4 L (3.4-5.0) g/dL Crossmatch See Detail 05/08/18 05/08/18 05/08/18 Range/Units 06:18 06:18 16:10 WBC 11.57 H (4.4-10.8) k/cumm RBC 2.13 L (4.00-5.20) m/cumm Hgb 5.7 L* 6.9 L* (12.0-15.5) g/dL Hct 18.7 L* 21.4 L (36.0-46.0) % MCH 26.8 L (27.0-33.0) pg MCHC 30.5 L (32.0-36.0) g/dL RDW 16.4 H (11.7-14.6) % Plt Count 435 H (130-400) x1000/uL Absolute Neutrophils 7.53 H (1.2-6.7) k/cumm Absolute Monocytes 0.84 H (0.11-0.7) k/cumm PT 40.1 H (9.3-10.8) sec INR 4.3 H* D (1.0-3.5) Potassium (3.5-5.1) mmol/L Chloride (98-107) mmol/L Carbon Dioxide (21.0-32.0) mmol/L Anion Gap (3-11) mmol/L BUN (7-18) mg/dL Creatinine (0.55-1.02) mg/dL Glucose (70-100) mg/dL Alkaline Phosphatase (46-116) U/L Total Protein (6.4-8.2) g/dL Albumin (3.4-5.0) g/dL Crossmatch Vital Signs Temperature 36.3 C L 05/08/18 14:51 Temperature Source Temporal Artery Scan 05/08/18 11:45 Pulse 90 05/08/18 14:51 Pulse 90 05/08/18 14:55 Respiratory Rate 20 05/08/18 14:51 Respiratory Effort Non-Labored 05/08/18 11:45 Respiratory Depth Normal 05/08/18 11:45 Respiratory Pattern Normal 05/08/18 11:45 Blood Pressure 141/61 H 05/08/18 14:55 Blood Pressure Mean 78 05/08/18 14:55 Blood Pressure Position Supine 05/08/18 11:45 Pulse Oximetry 99 05/08/18 15:45 Respiratory End-tidal CO2 32 05/08/18 14:51 Oxygen Delivery Method Nasal Cannula 05/08/18 15:45 Oxygen Flow Rate 2 05/08/18 15:45 Fraction of Inspired Oxygen (FIO2) 0 05/08/18 03:35 Pain Level 0 05/08/18 11:45 Intake & Output 05/07/18 05/08/18 05/08/18 23:59 11:59 23:59 Intake Total 1836 / 1836 2105 / 2105 1330 / 1330 Output Total 825 / 825 925 / 925 200 / 200 Balance 1011 / 1011 1180 / 1180 1130 / 1130 Weight 120.9 kg 120 kg Intake: IV 635 / 635 1000 / 1000 680 / 680 Oral 850 / 850 605 / 605 Blood Product 300 / 300 500 / 500 650 / 650 Frozen Plasma Unit 350 / 350 [id number] Frozen Plasma Unit 0 / 0 [id number] Rbc Leuko Reduced Unit 500 / 500 [id number] Rbc Leuko Reduced Unit 300 / 300 [id number] Rbc Leuko Reduced Unit 300 / 300 [id number] Other Rbc Leuko Reduced Unit [id number] Output: Urine 825 / 825 925 / 925 200 / 200 Other: Urine Color Yellow Yellow Yellow Urine Appearance Clear Clear Clear Urine Odor Normal Normal Comment Dipped positive for trace blood. Voiding to commode. Stool Occult Blood Positive Stool Size Large Smear Stool Characteristics Soft Black Black Bloody Emesis Description None Voiding Methods Bedside Commode Bedside Commode Bedside Commode Laboratory Results WBC 11.57 k/cumm (4.4-10.8) H 05/08/18 06:18 RBC 2.13 m/cumm (4.00-5.20) L 05/08/18 06:18 Hgb 6.9 g/dL (12.0-15.5) L* 05/08/18 16:10 Hct 21.4 % (36.0-46.0) L 05/08/18 16:10 MCV 87.8 fL (80-95) 05/08/18 06:18 MCH 26.8 pg (27.0-33.0) L 05/08/18 06:18 MCHC 30.5 g/dL (32.0-36.0) L 05/08/18 06:18 RDW 16.4 % (11.7-14.6) H 05/08/18 06:18 Plt Count 435 x1000/uL (130-400) H 05/08/18 06:18 MPV 9.3 fL (8.0-11.0) 05/08/18 06:18 Immature Gran % 1.1 05/08/18 06:18 Neutrophils % 65.1 05/08/18 06:18 Lymphocytes % 22.9 05/08/18 06:18 Monocytes % 7.3 05/08/18 06:18 Eosinophils % 3.3 05/08/18 06:18 Basophils % 0.3 05/08/18 06:18 Absolute Neutrophils 7.53 k/cumm (1.2-6.7) H 05/08/18 06:18 Absolute Lymphocytes 2.65 k/cumm (1.2-3.4) 05/08/18 06:18 Absolute Monocytes 0.84 k/cumm (0.11-0.7) H 05/08/18 06:18 Absolute Eosinophils 0.38 k/cumm (0.0-0.7) 05/08/18 06:18 Absolute Basophils 0.03 k/cumm (0.0-0.2) 05/08/18 06:18 Differential Comment Rbc morph reviewed 05/07/18 08:45 RBC Morphology See below 05/07/18 08:45 Polychromasia Present 05/07/18 08:45 Hypochromasia 1+ 05/07/18 08:45 Basophilic Stippling Present 05/07/18 08:45 Anisocytosis 1+ 05/07/18 08:45 PT 40.1 sec (9.3-10.8) H 05/08/18 06:18 INR 4.3 (1.0-3.5) H* D 05/08/18 06:18 APTT 43.0 sec (21.0-31.4) H 05/07/18 08:45 Sodium 138 mmol/L (136-145) 05/08/18 06:18 Potassium 5.1 mmol/L (3.5-5.1) 05/08/18 16:10 Chloride 108 mmol/L (98-107) H 05/08/18 06:18 Carbon Dioxide 20.6 mmol/L (21.0-32.0) L 05/08/18 06:18 Anion Gap 9.4 mmol/L (3-11) 05/08/18 06:18 BUN 159 mg/dL (7-18) H* 05/08/18 06:18 Creatinine 2.36 mg/dL (0.55-1.02) H 05/08/18 06:18 Estimated GFR/1.73 m2 20.29 (mL/min/1.73m2) 05/08/18 06:18 Glucose 111 mg/dL (70-100) H 05/08/18 06:18 Calcium 8.5 mg/dL (8.5-10.1) 05/08/18 06:18 Magnesium 2.4 mg/dL (1.8-2.4) 05/07/18 08:45 Total Bilirubin 0.2 mg/dL (0.2-1.0) 05/08/18 06:18 AST 15 U/L (15-37) 05/08/18 06:18 ALT 18 U/L (12-78) 05/08/18 06:18 Alkaline Phosphatase 44 U/L (46-116) L 05/08/18 06:18 Troponin I < 0.02 ng/mL (0.00-0.06) 05/07/18 08:45 Total Protein 6.1 g/dL (6.4-8.2) L 05/08/18 06:18 Albumin 2.4 g/dL (3.4-5.0) L 05/08/18 06:18 TSH 3.22 uIU/mL (0.358-3.74) 05/07/18 08:45 Patient ABO/Rh A Negative 05/07/18 09:25 Antibody Screen Negative 05/07/18 09:25 Crossmatch See Detail 05/07/18 09:25
[2018-05-08 16:52] LABS: Prothrombin Time 22.2 sec (9.3-10.8)
[2018-05-08] MEDS: Sucralfate 1 GM TAB PO ×2 (16:56→22:35)
[2018-05-08 17:01] LABS: INR 2.3 (1.0-3.5)
[2018-05-08] MEDS: Normal Saline Flush 10 ML SYR IVP ×4 (17:23→23:54)
[2018-05-08] MEDS: ACETAMINOPHEN 1,000 MG/100 ML BTL 400 MG IVPB ×2 (20:39→23:54)
[2018-05-09] VITALS (25 sets, daily range): BP systolic 102–152; BP diastolic 32–110; PULSE 53–74; RESP 15–24; TEMP 35.5–36.4; O2SAT 92–99
[2018-05-09] MEDS: Normal Saline 1,000 ML 125 ML IV (00:08)
[2018-05-09] MEDS: Sucralfate 1 GM TAB PO ×4 (04:40→21:51)
[2018-05-09] MEDS: Levothyroxine 25 MCG TAB PO (05:55)
[2018-05-09] MEDS: ACETAMINOPHEN 1,000 MG/100 ML BTL 400 MG IVPB ×4 (05:55→23:30)
[2018-05-09 07:19] LABS: HCT 25.7 % (36.0-46.0); HGB 8.3 g/dL (12.0-15.5); Mean Corp. HGB Concentration 32.3 g/dL (32.0-36.0); Mean Corpuscular Hemoglobin 28.1 pg (27.0-33.0); Mean Corpuscular Volume 87.1 fL (80-95); Mean Platelet Volume 9.1 fL (8.0-11.0); Platelet Count 356 x1000/uL (130-400); RBC 2.95 m/cumm (4.00-5.20); RBC Distribution Width 16.1 % (11.7-14.6); White Blood Cell Count 10.87 k/cumm (4.4-10.8)
--- NOTE | 2018-05-09 07:20 | ROE_ITS ---
Date of service: 05/08/18 Time of Service: 13:45 Operative Note DATE OF PROCEDURE: 05/08/18 PRE-OP DIAGNOSIS: Gi Bleed POST-OP DIAGNOSIS: same PROCEDURE: EGD with cautery SURGEON: Ludivina Deutsch ANESTHESIA: GETA ESTIMATED BLOOD LOSS: 15 PATHOLOGY: none sent COMPLICATIONS: None Patient was transported to: ICU Patient's condition: stable Indications: Mrs. Iqbal is a pleasant 72 year old female who was admitted with anemia. She had 2 large black BM's overnight and her Hgb droped. She was also noted to be supra-therapeutic on her coumadin with an INR of above 4. Risks, benefits and complications of an EGD were discussed with the patient and she wished to proceed. No guarantees were given or implied.. Procedure Description: After Informed consent was obtained the patient was taken to the procedure room and placed in a supine position. Monitors were applied and a time out was done. The patients name, date of , procedure type, allergies to medications and metal in her body were all reviewed. A bite block was placed and she was placed under GETA. Once the ET tube was in place the Gastroscope was inserted and advanced through the oropharynx which was grossly normal into the esophagus. The proximal and mid-esophagus were normal. The distal esophagus showed Inflammation and a shallow ulcer without active bleeding. The scope was advanced into the stomach and through the pylorus into the duodenum. The duodenum was normal. The scope was retracted back into the stomach. At the pylorus there was a polyp with an ulcer that had stigmata of bleeding. The ulcer was cauterized. In the antrum there was inflammation noted. There were several ulcers. Two had stigmata of recent bleeding and were cauterized. There was oozing wherever the scope touched the stomach. Areas of oozing were gently cauterized. The scope was retroflexed. The cardia and fundus were normal. The scope was straightened and retracted into the esophagus. The Z-line was slightly irregular. The GE junction was at 32 cm. The scope was removed and the patient was woken up and taken back to PACU in stable condition. Follow up: Will need to get her INR to 1. She may need more blood until her INR is down to normal. She should not take any NSAIDs. I will place her on BID PPI and Carafate. Patient will need another EGD and Colonoscopy in 3 months. Patient needs to have an ECHO prior to ant more endoscopies and may need to have the endoscopies done at [facility] or [facility] depending on the results of the ECHO.
[2018-05-09 07:29] LABS: Anion Gap 9.9 mmol/L (3-11); CO2 20.1 mmol/L (21.0-32.0); CREATININE 1.63 mg/dL (0.55-1.02); Calcium 8.7 mg/dL (8.5-10.1); Chloride 114 mmol/L (98-107); Glucose 99 mg/dL (70-100); Potassium 5.7 mmol/L (3.5-5.1); Sodium 144 mmol/L (136-145)
[2018-05-09 07:32] LABS: BUN 95 mg/dL (7-18)
[2018-05-09 07:41] LABS: INR 2.2 (1.0-3.5); Prothrombin Time 21.1 sec (9.3-10.8)
[2018-05-09] MEDS: Metoprolol 25 MG TAB PO ×2 (09:07→20:17)
[2018-05-09] MEDS: Pantoprazole 40 MG VIAL IVP ×2 (09:07→20:17)
[2018-05-09] MEDS: Normal Saline Flush 10 ML SYR IVP ×2 (09:09→20:17)
[2018-05-09] MEDS: Normal Saline 1,000 ML 80 ML IV ×2 (10:34→23:30)
--- NOTE | 2018-05-09 10:42 | PT.INIE ---
Date of service: 05/09/18 Time of Service: 10:36 PT Notes Inpatient Physical Therapy Evaluation Date: 05/09/18 Referring Doctor: Joshua Chow PT Orders: PT CONSULT: help with symptom relief of neck pain Precautions: Fall precautions Patient Profile/Admitting Diagnosis: Pt is a 72yr old female admitted with gastrointestinal bleed and anemia PMHX: gastric ulcers, chronic anemia, obesity, diabetes mellitus type II, total knee replacement, obstructive sleep apnea uses CPAP, atrial fibrillation, depression, diverticulitis, hysterectomy, bilateral salpingectomy and oophorectomy, hypothyroid, appendectomy Social History/Home Situation: Lives with spouse in 2 level home, 2 steps to enter, 12 steps with railing to upstairs. States she only uses inside stairs once per day. Baseline mobility is independent gait with cane, independent with ADLS. Has grab bars in shower. Equipment Owned/DME: cane, grab bars in shower Subjective: Pt reports her primary complaint in muscle pain in my neck.. Pt reports pulling and tenderness across both shoulders and tightness with turning her head and looking down. Pt states right side is worse than the left, reports she did fall a couple weeks ago onto her right side with an outreached right hand. Objective: Mental Status: A& O x3 Pain: c/o tightness and pulling in bilateral shoulders and neck, not rated. Palpation: tenderness and tightness to palpation bilateral upper trapezius R > L, levator scapula R > L and bilateral rhomboids R> L. Non tender through cervical spinal musculature. ROM: Cervical ROM: forward flexion WNL + pulling posterior neck and paraspinal musculature, R rotation 40 non painful, L rotation 30 + pulling upper trapezius, R side bending WNL non painful , L side bending WNL + pulling right upper trapezius, cervical extension WNL non painful Right Upper Extremity: AROM WNL Left Upper Extremity: AROM WNL Right Lower Extremity: AROM WNL Left Lower Extremity: AROM WNL Strength: Right Upper Extremity: 4/5 shoulder flexion limited by pain R shoulder muscles, 5/5 bicep, 5/5 sexton helper Left Upper Extremity: 5/5 throughout Right Lower Extremity: 4/5 hip flexion, 5/5 quad, 5/5 DF/PF Left Lower Extremity: 4/5 hip flexion, 5/5 quad, 5/5 DF/PF Sensation: Intact to light touch and proprioception bilateral upper extremities, negative for radiculopathy or radiating pain, no neurological deficits Bed Mobility/Transfers: Sit-stand: supervision with FWW Stand-sit: supervision Gait: supervision gait with FWW 80ftx2, steady step through gait pattern, no pain with gait, returned to chair after session completed. Balance: Static Sitting: normal Dynamic Sitting: normal Static Standing: normal Dynamic Standing: fair Special Tests: Mobility Limitations Standardized Measure [facility] 6 clicks Basic Mobility Inpatient Short Form: Raw Score: 21 Standardized Score: 50.25 CMS Score: 28.97% CMS Modifier: CJ Informed Consent/Education: Patient instructed in purpose of PT consult and plan of care. TREATMENT: Manual therapy soft tissue mobilization, trigger point release and stretching performed to bilateral upper traps, levator scapula and rhmobiods. Pt with improved soft tissue mobility post treatment and improved cervical ROM with reduced pain. Assessment: Pt is a 72yr old female admitted with cervical pain, gastrointestinal bleed and anemia in setting of gastric ulcers, chronic anemia, obesity, diabetes mellitus type II, total knee replacement, obstructive sleep apnea uses CPAP, atrial fibrillation, depression. Patient presents with clinical signs and symptoms consistent with muscular tightness in bilateral upper trapezius, levator scapula and rhomboids R > L affecting her cervical range of motion (ROM limited by tightness) after a recent fall onto her right side at home. She does not appear to have any mechanical or neurological deficits. Functional mobility is not affected by muscular tightness. Pt received soft tissue mobilization, trigger point release and manual therapy to bilateral shoulder and cervical musculature which resulted in reduced pain and tightness and improved cervical ROM by end of session. Pt would benefit from k-pad heating pad for pain reduction and reducing muscular tension. Referral to outpatient P.T would be beneficial at discharge for follow up. Impairments are contributing to the following functional limitations: AMPAC score CMS Score: 28.97% Patient is assessed as a Low [id number] complexity based on the following: History: see above Examination: see above Presentation: stable Decision Making: AMPAC score CMS Score: 28.97% Goals: Goals X1 week 1. Supine-Sit independent 2. Sit-Supine independent 3. Sit-Stand independent 4. Stand-Sit independent 5. Bed-Chair supervision 6. Chair-Bed supervision 7. Gait supervision with [facility] 80ftx2 8. Stairs up/down 12 steps with railing and cane, S 9. Pain free ROM cervical spine all ranges Plan of Care/Treatment Plan: 1-2x/day, 7 days/week x 1 week. Plan of care has been reviewed with the SPECIALIZED DEVELOPER providing the service under Physical Therapy direction. Initiate Physical Therapy intervention for strengthening, bed mobility, transfers, gait, stairs, balance training, use of assistive device. DISCHARGE RECOMMENDATIONS: home with hsuband, outpatient PT recommended for cervical pain/maual therapy. Recommend K-pad heating pad for pain reduction TREATMENT CODE/TIME: 25min IE 10:35 G Codes in the area mobility of walking and moving around: current status [id number] CJ; projected status GP [id number]. Discharge status (if discharging) GP [id number] BRUCE Dias PT
--- NOTE | 2018-05-09 10:58 | IN_ITS ---
Date of service: 05/09/18 Time of Service: 10:36 PT Notes Inpatient Physical Therapy Evaluation Date: 05/09/18 Referring Doctor: Joshua Chow PT Orders: PT CONSULT: help with symptom relief of neck pain Precautions: Fall precautions Patient Profile/Admitting Diagnosis: Pt is a 72yr old female admitted with gastrointestinal bleed and anemia PMHX: gastric ulcers, chronic anemia, obesity, diabetes mellitus type II, total knee replacement, obstructive sleep apnea uses CPAP, atrial fibrillation, depression, diverticulitis, hysterectomy, bilateral salpingectomy and oophorectomy, hypothyroid, appendectomy Social History/Home Situation: Lives with spouse in 2 level home, 2 steps to enter, 12 steps with railing to upstairs. States she only uses inside stairs once per day. Baseline mobility is independent gait with cane, independent with ADLS. Has grab bars in shower. Equipment Owned/DME: cane, grab bars in shower Subjective: Pt reports her primary complaint in muscle pain in my neck.. Pt reports pulling and tenderness across both shoulders and tightness with turning her head and looking down. Pt states right side is worse than the left, reports she did fall a couple weeks ago onto her right side with an outreached right hand. Objective: Mental Status: A& O x3 Pain: c/o tightness and pulling in bilateral shoulders and neck, not rated. Palpation: tenderness and tightness to palpation bilateral upper trapezius R > L , levator scapula R > L and bilateral rhomboids R> L. Non tender through cervical spinal musculature. ROM: Cervical ROM: forward flexion WNL + pulling posterior neck and paraspinal musculature, R rotation 40 non painful, L rotation 30 + pulling upper trapezius, R side bending WNL non painful , L side bending WNL + pulling right upper trapezius, cervical extension WNL non painful Right Upper Extremity: AROM WNL Left Upper Extremity: AROM WNL Right Lower Extremity: AROM WNL Left Lower Extremity: AROM WNL Strength: Right Upper Extremity: 4/5 shoulder flexion limited by pain R shoulder muscles, 5/5 bicep, 5/5 global compensation manager Left Upper Extremity: 5/5 throughout Right Lower Extremity: 4/5 hip flexion, 5/5 quad, 5/5 DF/PF Left Lower Extremity: 4/5 hip flexion, 5/5 quad, 5/5 DF/PF Sensation: Intact to light touch and proprioception bilateral upper extremities , negative for radiculopathy or radiating pain, no neurological deficits Bed Mobility/Transfers: Sit-stand: supervision with FWW Stand-sit: supervision Gait: supervision gait with FWW 80ftx2, steady step through gait pattern, no pain with gait, returned to chair after session completed. Balance: Static Sitting: normal Dynamic Sitting: normal Static Standing: normal Dynamic Standing: fair Special Tests: Mobility Limitations Standardized Measure [facility] 6 clicks Basic Mobility Inpatient Short Form: Raw Score: 21 Standardized Score: 50.25 CMS Score: 28.97% CMS Modifier: CJ Informed Consent/Education: Patient instructed in purpose of PT consult and plan of care. TREATMENT: Manual therapy soft tissue mobilization, trigger point release and stretching performed to bilateral upper traps, levator scapula and rhmobiods. Pt with improved soft tissue mobility post treatment and improved cervical ROM with reduced pain. Assessment: Pt is a 72yr old female admitted with cervical pain, gastrointestinal bleed and anemia in setting of gastric ulcers, chronic anemia, obesity, diabetes mellitus type II, total knee replacement, obstructive sleep apnea uses CPAP, atrial fibrillation, depression. Patient presents with clinical signs and symptoms consistent with muscular tightness in bilateral upper trapezius, levator scapula and rhomboids R > L affecting her cervical range of motion (ROM limited by tightness) after a recent fall onto her right side at home. She does not appear to have any mechanical or neurological deficits. Functional mobility is not affected by muscular tightness. Pt received soft tissue mobilization, trigger point release and manual therapy to bilateral shoulder and cervical musculature which resulted in reduced pain and tightness and improved cervical ROM by end of session. Pt would benefit from k-pad heating pad for pain reduction and reducing muscular tension. Referral to outpatient P.T would be beneficial at discharge for follow up. Impairments are contributing to the following functional limitations: AMPAC score CMS Score: 28.97% Patient is assessed as a Low 66122 complexity based on the following: History: see above Examination: see above Presentation: stable Decision Making: AMPAC score CMS Score: 28.97% Goals: Goals X1 week 1. Supine-Sit independent 2. Sit-Supine independent 3. Sit-Stand independent 4. Stand-Sit independent 5. Bed-Chair supervision 6. Chair-Bed supervision 7. Gait supervision with [facility] 80ftx2 8. Stairs up/down 12 steps with railing and cane, S 9. Pain free ROM cervical spine all ranges Plan of Care/Treatment Plan: 1-2x/day, 7 days/week x 1 week. Plan of care has been reviewed with the [employer] providing the service under Physical Therapy direction. Initiate Physical Therapy intervention for strengthening, bed mobility, transfers, gait, stairs, balance training, use of assistive device. DISCHARGE RECOMMENDATIONS: home with hsuband, outpatient PT recommended for cervical pain/maual therapy. Recommend K-pad heating pad for pain reduction TREATMENT CODE/TIME: 25min IE 10:35 G Codes in the area mobility of walking and moving around: current status [id number] CJ; projected status GP [id number]. Discharge status (if discharging) GP [id number] BRUCE Dias PT
--- NOTE | 2018-05-09 12:15 | W.PM.PROGNOT ---
Assessment and Plan (1) Peptic ulcer disease with hemorrhage: Current visit: Yes Status: Acute A\\ PUD with bleeding. Hgb stable so far. Did have another dark stool this am. Vitals are stable P\\ Continue with BID PPI therapy for 3 months Continue with Carafate therapy for 1 month Low acid diet Recommend not restarting coumadin but will leave the decision to the hospitalist. No NSAIDS Patient should have another EGD in 3 months. She is also due for a colonoscopy. Anesthesia would like an ECHO prior to scheduling that. This could be done as an outpatient. This is to reassess her . Follow up with Dr. Deutsch in 4 weeks. Thank you for allowing me to participate in the care of your patient. We will sign off today but please call if there are any questions or concerns about re-bleeding. Subjective Interval history since last seen: Feels well. Patient is walking around. No complaints of N/V or abdominal pain. Exam Const General: no acute distress Resp Effort & Inspection: normal respiratory effort GI Inspection: normal to inspection and obesity Palpation: soft Auscultation: normal bowel sounds Objective Objective Clinical Data: Abnormal lab results 05/07/18 05/08/18 05/08/18 Range/Units 09:25 16:10 16:10 WBC (4.4-10.8) k/cumm RBC (4.00-5.20) m/cumm Hgb 6.9 L* (12.0-15.5) g/dL Hct 21.4 L (36.0-46.0) % RDW (11.7-14.6) % PT 22.2 H D (9.3-10.8) sec Potassium (3.5-5.1) mmol/L Chloride (98-107) mmol/L Carbon Dioxide (21.0-32.0) mmol/L BUN (7-18) mg/dL Creatinine (0.55-1.02) mg/dL Crossmatch See Detail 05/09/18 05/09/18 05/09/18 Range/Units 06:45 06:45 07:18 WBC 10.87 H (4.4-10.8) k/cumm RBC 2.95 L (4.00-5.20) m/cumm Hgb 8.3 L (12.0-15.5) g/dL Hct 25.7 L D (36.0-46.0) % RDW 16.1 H (11.7-14.6) % PT 21.1 H (9.3-10.8) sec Potassium 5.7 H (3.5-5.1) mmol/L Chloride 114 H (98-107) mmol/L Carbon Dioxide 20.1 L (21.0-32.0) mmol/L BUN 95 H* D (7-18) mg/dL Creatinine 1.63 H D (0.55-1.02) mg/dL Crossmatch Vital Signs Temperature 96.4 F L 05/09/18 11:55 Temperature Source Tympanic 05/09/18 11:55 Pulse 53 L 05/09/18 11:55 Pulse 66 05/09/18 08:43 Respiratory Rate 22 05/09/18 08:43 Respiratory Effort 05/09/18 07:30 Respiratory Depth Normal 05/09/18 07:30 Respiratory Pattern Normal 05/09/18 07:30 Blood Pressure 125/42 L 05/09/18 11:55 Blood Pressure Mean 74 05/09/18 08:43 Blood Pressure Position Sitting 05/09/18 07:30 Pulse Oximetry 98 05/09/18 11:55 Respiratory End-tidal CO2 32 05/08/18 14:51 Oxygen Delivery Method Room Air 05/09/18 11:55 Oxygen Flow Rate 0 05/09/18 11:55 Fraction of Inspired Oxygen (FIO2) 0 05/08/18 03:35 Pain Level 0 05/09/18 11:55 Intake & Output 05/08/18 05/09/18 05/09/18 23:59 11:59 23:59 Intake Total 2138 / 2138 2330.000 / 2330.000 Output Total 1750 / 1750 1300 / 1300 Balance 388 / 388 1030.000 / 1030.000 Weight 268 lb 15.423 oz Intake: IV 1130 / 1130 1230.000 / 1230.000 Oral 650 / 650 Blood Product 1008 / 1008 350 / 350 Frozen Plasma Unit 350 / 350 [id number] Frozen Plasma Unit 0 / 0 [id number] Rbc Leuko Reduced Unit 300 / 300 [id number] Rbc Leuko Reduced Unit 350 / 350 [id number] Rbc Leuko Reduced Unit 358 / 358 [id number]* Other 100 / 100 Rbc Leuko Reduced Unit 100 / 100 [id number] Output: Urine 1750 / 1750 1300 / 1300 Other: Urine Color Yellow Pale Urine Appearance Clear Clear Urine Odor Normal Normal Comment mixed with stool Stool Occult Blood Positive Positive Stool Size Small Moderate Stool Characteristics Black Soft Bloody Formed Black Emesis Description None Voiding Methods Bedside Commode Bedside Commode Laboratory Results WBC 10.87 k/cumm (4.4-10.8) H 05/09/18 06:45 RBC 2.95 m/cumm (4.00-5.20) L 05/09/18 06:45 Hgb 8.3 g/dL (12.0-15.5) L 05/09/18 06:45 Hct 25.7 % (36.0-46.0) L D 05/09/18 06:45 MCV 87.1 fL (80-95) 05/09/18 06:45 MCH 28.1 pg (27.0-33.0) 05/09/18 06:45 MCHC 32.3 g/dL (32.0-36.0) 05/09/18 06:45 RDW 16.1 % (11.7-14.6) H 05/09/18 06:45 Plt Count 356 x1000/uL (130-400) 05/09/18 06:45 MPV 9.1 fL (8.0-11.0) 05/09/18 06:45 Immature Gran % 1.1 05/08/18 06:18 Neutrophils % 65.1 05/08/18 06:18 Lymphocytes % 22.9 05/08/18 06:18 Monocytes % 7.3 05/08/18 06:18 Eosinophils % 3.3 05/08/18 06:18 Basophils % 0.3 05/08/18 06:18 Absolute Neutrophils 7.53 k/cumm (1.2-6.7) H 05/08/18 06:18 Absolute Lymphocytes 2.65 k/cumm (1.2-3.4) 05/08/18 06:18 Absolute Monocytes 0.84 k/cumm (0.11-0.7) H 05/08/18 06:18 Absolute Eosinophils 0.38 k/cumm (0.0-0.7) 05/08/18 06:18 Absolute Basophils 0.03 k/cumm (0.0-0.2) 05/08/18 06:18 Differential Comment Rbc morph reviewed 05/07/18 08:45 RBC Morphology See below 05/07/18 08:45 Polychromasia Present 05/07/18 08:45 Hypochromasia 1+ 05/07/18 08:45 Basophilic Stippling Present 05/07/18 08:45 Anisocytosis 1+ 05/07/18 08:45 PT 21.1 sec (9.3-10.8) H 05/09/18 07:18 INR 2.2 (1.0-3.5) 05/09/18 07:18 APTT 43.0 sec (21.0-31.4) H 05/07/18 08:45 Sodium 144 mmol/L (136-145) 05/09/18 06:45 Potassium 5.7 mmol/L (3.5-5.1) H 05/09/18 06:45 Chloride 114 mmol/L (98-107) H 05/09/18 06:45 Carbon Dioxide 20.1 mmol/L (21.0-32.0) L 05/09/18 06:45 Anion Gap 9.9 mmol/L (3-11) 05/09/18 06:45 BUN 95 mg/dL (7-18) H* D 05/09/18 06:45 Creatinine 1.63 mg/dL (0.55-1.02) H D 05/09/18 06:45 Estimated GFR/1.73 m2 31.10 (mL/min/1.73m2) 05/09/18 06:45 Glucose 99 mg/dL (70-100) 05/09/18 06:45 Calcium 8.7 mg/dL (8.5-10.1) 05/09/18 06:45 Magnesium 2.4 mg/dL (1.8-2.4) 05/07/18 08:45 Total Bilirubin 0.2 mg/dL (0.2-1.0) 05/08/18 06:18 AST 15 U/L (15-37) 05/08/18 06:18 ALT 18 U/L (12-78) 05/08/18 06:18 Alkaline Phosphatase 44 U/L (46-116) L 05/08/18 06:18 Troponin I < 0.02 ng/mL (0.00-0.06) 05/07/18 08:45 Total Protein 6.1 g/dL (6.4-8.2) L 05/08/18 06:18 Albumin 2.4 g/dL (3.4-5.0) L 05/08/18 06:18 TSH 3.22 uIU/mL (0.358-3.74) 05/07/18 08:45 Patient ABO/Rh A Negative 05/07/18 09:25 Antibody Screen Negative 05/07/18 09:25 Crossmatch See Detail 05/07/18 09:25
--- NOTE | 2018-05-09 12:24 | PGE_ITS ---
Assessment and Plan (1) Peptic ulcer disease with hemorrhage: Current visit: Yes Status: Acute A\\ PUD with bleeding. Hgb stable so far. Did have another dark stool this am. Vitals are stable P\\ Continue with BID PPI therapy for 3 months Continue with Carafate therapy for 1 month Low acid diet Recommend not restarting coumadin but will leave the decision to the hospitalist. No NSAIDS Patient should have another EGD in 3 months. She is also due for a colonoscopy. Anesthesia would like an ECHO prior to scheduling that. This could be done as an outpatient. This is to reassess her . Follow up with Dr. Deutsch in 4 weeks. Thank you for allowing me to participate in the care of your patient. We will sign off today but please call if there are any questions or concerns about re- bleeding. Subjective Interval history since last seen: Feels well. Patient is walking around. No complaints of N/V or abdominal pain. Exam Const General: no acute distress Resp Effort & Inspection: normal respiratory effort GI Inspection: normal to inspection and obesity Palpation: soft Auscultation: normal bowel sounds Objective Objective Clinical Data: Abnormal lab results 05/07/18 05/08/18 05/08/18 Range/Units 09:25 16:10 16:10 WBC (4.4-10.8) k/cumm RBC (4.00-5.20) m/cumm Hgb 6.9 L* (12.0-15.5) g/dL Hct 21.4 L (36.0-46.0) % RDW (11.7-14.6) % PT 22.2 H D (9.3-10.8) sec Potassium (3.5-5.1) mmol/L Chloride (98-107) mmol/L Carbon Dioxide (21.0-32.0) mmol/L BUN (7-18) mg/dL Creatinine (0.55-1.02) mg/dL Crossmatch See Detail 05/09/18 05/09/18 05/09/18 Range/Units 06:45 06:45 07:18 WBC 10.87 H (4.4-10.8) k/cumm RBC 2.95 L (4.00-5.20) m/cumm Hgb 8.3 L (12.0-15.5) g/dL Hct 25.7 L D (36.0-46.0) % RDW 16.1 H (11.7-14.6) % PT 21.1 H (9.3-10.8) sec Potassium 5.7 H (3.5-5.1) mmol/L Chloride 114 H (98-107) mmol/L Carbon Dioxide 20.1 L (21.0-32.0) mmol/L BUN 95 H* D (7-18) mg/dL Creatinine 1.63 H D (0.55-1.02) mg/dL Crossmatch Vital Signs Temperature 96.4 F L 05/09/18 11:55 Temperature Source Tympanic 05/09/18 11:55 Pulse 53 L 05/09/18 11:55 Pulse 66 05/09/18 08:43 Respiratory Rate 22 05/09/18 08:43 Respiratory Effort 05/09/18 07:30 Respiratory Depth Normal 05/09/18 07:30 Respiratory Pattern Normal 05/09/18 07:30 Blood Pressure 125/42 L 05/09/18 11:55 Blood Pressure Mean 74 05/09/18 08:43 Blood Pressure Position Sitting 05/09/18 07:30 Pulse Oximetry 98 05/09/18 11:55 Respiratory End-tidal CO2 32 05/08/18 14:51 Oxygen Delivery Method Room Air 05/09/18 11:55 Oxygen Flow Rate 0 05/09/18 11:55 Fraction of Inspired Oxygen (FIO2) 0 05/08/18 03:35 Pain Level 0 05/09/18 11:55 Intake & Output 05/08/18 05/09/18 05/09/18 23:59 11:59 23:59 Intake Total 2138 / 2138 2330.000 / 2330.000 Output Total 1750 / 1750 1300 / 1300 Balance 388 / 388 1030.000 / 1030.000 Weight 268 lb 15.423 oz Intake: IV 1130 / 1130 1230.000 / 1230.000 Oral 650 / 650 Blood Product 1008 / 1008 350 / 350 Frozen Plasma Unit 350 / 350 [id number] Frozen Plasma Unit 0 / 0 [id number] Rbc Leuko Reduced Unit 300 / 300 [id number] Rbc Leuko Reduced Unit 350 / 350 [id number] Rbc Leuko Reduced Unit 358 / 358 [id number]* Other 100 / 100 Rbc Leuko Reduced Unit 100 / 100 [id number] Output: Urine 1750 / 1750 1300 / 1300 Other: Urine Color Yellow Pale Urine Appearance Clear Clear Urine Odor Normal Normal Comment mixed with stool Stool Occult Blood Positive Positive Stool Size Small Moderate Stool Characteristics Black Soft Bloody Formed Black Emesis Description None Voiding Methods Bedside Commode Bedside Commode Laboratory Results WBC 10.87 k/cumm (4.4-10.8) H 05/09/18 06:45 RBC 2.95 m/cumm (4.00-5.20) L 05/09/18 06:45 Hgb 8.3 g/dL (12.0-15.5) L 05/09/18 06:45 Hct 25.7 % (36.0-46.0) L D 05/09/18 06:45 MCV 87.1 fL (80-95) 05/09/18 06:45 MCH 28.1 pg (27.0-33.0) 05/09/18 06:45 MCHC 32.3 g/dL (32.0-36.0) 05/09/18 06:45 RDW 16.1 % (11.7-14.6) H 05/09/18 06:45 Plt Count 356 x1000/uL (130-400) 05/09/18 06:45 MPV 9.1 fL (8.0-11.0) 05/09/18 06:45 Immature Gran % 1.1 05/08/18 06:18 Neutrophils % 65.1 05/08/18 06:18 Lymphocytes % 22.9 05/08/18 06:18 Monocytes % 7.3 05/08/18 06:18 Eosinophils % 3.3 05/08/18 06:18 Basophils % 0.3 05/08/18 06:18 Absolute Neutrophils 7.53 k/cumm (1.2-6.7) H 05/08/18 06:18 Absolute Lymphocytes 2.65 k/cumm (1.2-3.4) 05/08/18 06:18 Absolute Monocytes 0.84 k/cumm (0.11-0.7) H 05/08/18 06:18 Absolute Eosinophils 0.38 k/cumm (0.0-0.7) 05/08/18 06:18 Absolute Basophils 0.03 k/cumm (0.0-0.2) 05/08/18 06:18 Differential Comment Rbc morph reviewed 05/07/18 08:45 RBC Morphology See below 05/07/18 08:45 Polychromasia Present 05/07/18 08:45 Hypochromasia 1+ 05/07/18 08:45 Basophilic Stippling Present 05/07/18 08:45 Anisocytosis 1+ 05/07/18 08:45 PT 21.1 sec (9.3-10.8) H 05/09/18 07:18 INR 2.2 (1.0-3.5) 05/09/18 07:18 APTT 43.0 sec (21.0-31.4) H 05/07/18 08:45 Sodium 144 mmol/L (136-145) 05/09/18 06:45 Potassium 5.7 mmol/L (3.5-5.1) H 05/09/18 06:45 Chloride 114 mmol/L (98-107) H 05/09/18 06:45 Carbon Dioxide 20.1 mmol/L (21.0-32.0) L 05/09/18 06:45 Anion Gap 9.9 mmol/L (3-11) 05/09/18 06:45 BUN 95 mg/dL (7-18) H* D 05/09/18 06:45 Creatinine 1.63 mg/dL (0.55-1.02) H D 05/09/18 06:45 Estimated GFR/1.73 m2 31.10 (mL/min/1.73m2) 05/09/18 06:45 Glucose 99 mg/dL (70-100) 05/09/18 06:45 Calcium 8.7 mg/dL (8.5-10.1) 05/09/18 06:45 Magnesium 2.4 mg/dL (1.8-2.4) 05/07/18 08:45 Total Bilirubin 0.2 mg/dL (0.2-1.0) 05/08/18 06:18 AST 15 U/L (15-37) 05/08/18 06:18 ALT 18 U/L (12-78) 05/08/18 06:18 Alkaline Phosphatase 44 U/L (46-116) L 05/08/18 06:18 Troponin I < 0.02 ng/mL (0.00-0.06) 05/07/18 08:45 Total Protein 6.1 g/dL (6.4-8.2) L 05/08/18 06:18 Albumin 2.4 g/dL (3.4-5.0) L 05/08/18 06:18 TSH 3.22 uIU/mL (0.358-3.74) 05/07/18 08:45 Patient ABO/Rh A Negative 05/07/18 09:25 Antibody Screen Negative 05/07/18 09:25 Crossmatch See Detail 05/07/18 09:25
--- NOTE | 2018-05-09 12:46 | W.PM.PROGNOT ---
Assessment and Plan (1) Peptic ulcer disease with hemorrhage: Current visit: Yes Status: Acute Hemodynamically stable, still having melanotic stool but small volume. Hemoglobin this morning better after a total of 5 units transfusion. Continue to monitor for clinical signs of bleeding with change in pulse or blood pressure, continue to monitor hemoglobin. Continue IV PPI for another 24 hours as well as oral Carafate. Can switch to oral PPI tomorrow. Advance diet. Hold anticoagulation. (2) Atrial fibrillation: Current visit: Yes Status: Acute Has been in sinus rhythm on dofetilide. Anticoagulation remains on hold. Monitor for recurrent A. fib through vital signs. (3) Anticoagulated on warfarin: Current visit: Yes Status: Acute Warfarin remains on hold. Continue to monitor for overt bleeding. She will be off warfarin for several weeks. I am not going to recheck INR unless there is recurrent bleeding. (4) Diabetes type 2, controlled: Current visit: Yes Status: Chronic There has not been an exacerbation of hyperglycemia with stopping all of her oral meds. Continue to monitor blood sugars, short acting insulin as needed. Once taking p.o. adequately and blood sugars going up, likely resume her outpatient dose of metformin (5) Hypothyroid: Current visit: Yes Status: Chronic Stable on outpatient dose of levothyroxine. (6) Anemia: Current visit: Yes Status: Chronic Monitor hemoglobin as noted above. Transfuse for hemoglobin less than 7. (7) CKD (chronic kidney disease): Current visit: No Status: Chronic Laboratory increases in BUN and creatinine partially explainable by GI blood. NSAIDs may have contributed some to her worsening renal function. Monitor urine output, BUN and creatinine and avoid nephrotoxins. (8) Osteoarthritis: Current visit: Yes Status: Acute Neck pain a long-standing problem. Avoid NSAIDs. PT consultation. Physical measures with local heat. (9) Essential hypertension: Current visit: Yes Status: Acute Blood pressures are starting to go up which overall I interpret as a good sign. KEELEY inhibitor contraindicated due to hyperkalemia. Diuretic remains on hold. I am restarting low-dose metoprolol and monitoring blood pressure and pulse response. (10) Hyperkalemia: Current visit: Yes Status: Acute Potassium is gone up again slightly, not high enough to require any specific intervention. Lisinopril has been discontinued. Recheck potassium tomorrow. (11) Aortic stenosis: Current visit: Yes Status: Chronic No symptoms clearly attributable to this. Because she will require anesthesia for follow-up endoscopy, non destructive testing engineer have requested a follow-up echocardiogram. Will obtain while inpatient to expedite. Subjective Interval history since last seen: Mrs. Iqbal has had no complaints of dizziness lightheadedness stomach upset abdominal pain or shortness of breath. She is still having very small bowel movements that are melanotic but not grossly bloody. Her blood pressures have been creeping upward. Her hemoglobin has stabilized after a total of 5 units of packed red cells. Her INR has not changed much compared to yesterday following 2 units of FFP and 5 mg of vitamin K. Her only complaint is that she would like to eat and that her neck is a bit sore. Her neck pain is long-standing and for which she was taking ibuprofen and naproxen at home. Exam Narrative Exam Narrative: Awake alert and in good spirits, no distress. Blood pressures are starting to go up. Can see neck veins because of neck size. Her lungs are clear in the upper lung burrell, diminished at the bases bilaterally.. 2/6 to 3/6 systolic ejection murmur heard throughout the precordium, no diastolic murmur S3 or S4. Abdomen obese soft no tenderness anywhere with normal bowel sounds. Her legs are large, trace ankle edema. No open ulcers on the lower extremities. Some chronic pigmentary changes probably from stasis dermatitis in the past? Objective Objective Clinical Data: Abnormal lab results 05/07/18 05/08/18 05/08/18 Range/Units 09:25 16:10 16:10 WBC (4.4-10.8) k/cumm RBC (4.00-5.20) m/cumm Hgb 6.9 L* (12.0-15.5) g/dL Hct 21.4 L (36.0-46.0) % RDW (11.7-14.6) % PT 22.2 H D (9.3-10.8) sec Potassium (3.5-5.1) mmol/L Chloride (98-107) mmol/L Carbon Dioxide (21.0-32.0) mmol/L BUN (7-18) mg/dL Creatinine (0.55-1.02) mg/dL Crossmatch See Detail 05/09/18 05/09/18 05/09/18 Range/Units 06:45 06:45 07:18 WBC 10.87 H (4.4-10.8) k/cumm RBC 2.95 L (4.00-5.20) m/cumm Hgb 8.3 L (12.0-15.5) g/dL Hct 25.7 L D (36.0-46.0) % RDW 16.1 H (11.7-14.6) % PT 21.1 H (9.3-10.8) sec Potassium 5.7 H (3.5-5.1) mmol/L Chloride 114 H (98-107) mmol/L Carbon Dioxide 20.1 L (21.0-32.0) mmol/L BUN 95 H* D (7-18) mg/dL Creatinine 1.63 H D (0.55-1.02) mg/dL Crossmatch Vital Signs Temperature 35.8 C L 05/09/18 11:55 Temperature Source Tympanic 05/09/18 11:55 Pulse 53 L 05/09/18 11:55 Pulse 66 05/09/18 08:43 Respiratory Rate 22 05/09/18 08:43 Respiratory Effort 05/09/18 07:30 Respiratory Depth Normal 05/09/18 07:30 Respiratory Pattern Normal 05/09/18 07:30 Blood Pressure 125/42 L 05/09/18 11:55 Blood Pressure Mean 74 05/09/18 08:43 Blood Pressure Position Sitting 05/09/18 07:30 Pulse Oximetry 98 05/09/18 11:55 Respiratory End-tidal CO2 32 05/08/18 14:51 Oxygen Delivery Method Room Air 05/09/18 11:55 Oxygen Flow Rate 0 05/09/18 11:55 Fraction of Inspired Oxygen (FIO2) 0 05/08/18 03:35 Pain Level 0 05/09/18 11:55 Intake & Output 05/08/18 05/09/18 05/09/18 23:59 11:59 23:59 Intake Total 2138 / 2138 2330.000 / 2330.000 Output Total 1750 / 1750 1300 / 1300 Balance 388 / 388 1030.000 / 1030.000 Weight 122 kg Intake: IV 1130 / 1130 1230.000 / 1230.000 Oral 650 / 650 Blood Product 1008 / 1008 350 / 350 Frozen Plasma Unit 350 / 350 [id number] Frozen Plasma Unit 0 / 0 [id number] Rbc Leuko Reduced Unit 300 / 300 [id number] Rbc Leuko Reduced Unit 350 / 350 [id number] Rbc Leuko Reduced Unit 358 / 358 [id number]* Other 100 / 100 Rbc Leuko Reduced Unit 100 / 100 [id number] Output: Urine 1750 / 1750 1300 / 1300 Other: Urine Color Yellow Pale Urine Appearance Clear Clear Urine Odor Normal Normal Comment mixed with stool Stool Occult Blood Positive Positive Stool Size Small Moderate Stool Characteristics Black Soft Bloody Formed Black Emesis Description None Voiding Methods Bedside Commode Bedside Commode Laboratory Results WBC 10.87 k/cumm (4.4-10.8) H 05/09/18 06:45 RBC 2.95 m/cumm (4.00-5.20) L 05/09/18 06:45 Hgb 8.3 g/dL (12.0-15.5) L 05/09/18 06:45 Hct 25.7 % (36.0-46.0) L D 05/09/18 06:45 MCV 87.1 fL (80-95) 05/09/18 06:45 MCH 28.1 pg (27.0-33.0) 05/09/18 06:45 MCHC 32.3 g/dL (32.0-36.0) 05/09/18 06:45 RDW 16.1 % (11.7-14.6) H 05/09/18 06:45 Plt Count 356 x1000/uL (130-400) 05/09/18 06:45 MPV 9.1 fL (8.0-11.0) 05/09/18 06:45 Immature Gran % 1.1 05/08/18 06:18 Neutrophils % 65.1 05/08/18 06:18 Lymphocytes % 22.9 05/08/18 06:18 Monocytes % 7.3 05/08/18 06:18 Eosinophils % 3.3 05/08/18 06:18 Basophils % 0.3 05/08/18 06:18 Absolute Neutrophils 7.53 k/cumm (1.2-6.7) H 05/08/18 06:18 Absolute Lymphocytes 2.65 k/cumm (1.2-3.4) 05/08/18 06:18 Absolute Monocytes 0.84 k/cumm (0.11-0.7) H 05/08/18 06:18 Absolute Eosinophils 0.38 k/cumm (0.0-0.7) 05/08/18 06:18 Absolute Basophils 0.03 k/cumm (0.0-0.2) 05/08/18 06:18 Differential Comment Rbc morph reviewed 05/07/18 08:45 RBC Morphology See below 05/07/18 08:45 Polychromasia Present 05/07/18 08:45 Hypochromasia 1+ 05/07/18 08:45 Basophilic Stippling Present 05/07/18 08:45 Anisocytosis 1+ 05/07/18 08:45 PT 21.1 sec (9.3-10.8) H 05/09/18 07:18 INR 2.2 (1.0-3.5) 05/09/18 07:18 APTT 43.0 sec (21.0-31.4) H 05/07/18 08:45 Sodium 144 mmol/L (136-145) 05/09/18 06:45 Potassium 5.7 mmol/L (3.5-5.1) H 05/09/18 06:45 Chloride 114 mmol/L (98-107) H 05/09/18 06:45 Carbon Dioxide 20.1 mmol/L (21.0-32.0) L 05/09/18 06:45 Anion Gap 9.9 mmol/L (3-11) 05/09/18 06:45 BUN 95 mg/dL (7-18) H* D 05/09/18 06:45 Creatinine 1.63 mg/dL (0.55-1.02) H D 05/09/18 06:45 Estimated GFR/1.73 m2 31.10 (mL/min/1.73m2) 05/09/18 06:45 Glucose 99 mg/dL (70-100) 05/09/18 06:45 Calcium 8.7 mg/dL (8.5-10.1) 05/09/18 06:45 Magnesium 2.4 mg/dL (1.8-2.4) 05/07/18 08:45 Total Bilirubin 0.2 mg/dL (0.2-1.0) 05/08/18 06:18 AST 15 U/L (15-37) 05/08/18 06:18 ALT 18 U/L (12-78) 05/08/18 06:18 Alkaline Phosphatase 44 U/L (46-116) L 05/08/18 06:18 Troponin I < 0.02 ng/mL (0.00-0.06) 05/07/18 08:45 Total Protein 6.1 g/dL (6.4-8.2) L 05/08/18 06:18 Albumin 2.4 g/dL (3.4-5.0) L 05/08/18 06:18 TSH 3.22 uIU/mL (0.358-3.74) 05/07/18 08:45 Patient ABO/Rh A Negative 05/07/18 09:25 Antibody Screen Negative 05/07/18 09:25 Crossmatch See Detail 05/07/18 09:25
--- NOTE | 2018-05-09 12:57 | PGE_ITS ---
Assessment and Plan (1) Peptic ulcer disease with hemorrhage: Current visit: Yes Status: Acute Hemodynamically stable, still having melanotic stool but small volume. Hemoglobin this morning better after a total of 5 units transfusion. Continue to monitor for clinical signs of bleeding with change in pulse or blood pressure , continue to monitor hemoglobin. Continue IV PPI for another 24 hours as well as oral Carafate. Can switch to oral PPI tomorrow. Advance diet. Hold anticoagulation. (2) Atrial fibrillation: Current visit: Yes Status: Acute Has been in sinus rhythm on dofetilide. Anticoagulation remains on hold. Monitor for recurrent A. fib through vital signs. (3) Anticoagulated on warfarin: Current visit: Yes Status: Acute Warfarin remains on hold. Continue to monitor for overt bleeding. She will be off warfarin for several weeks. I am not going to recheck INR unless there is recurrent bleeding. (4) Diabetes type 2, controlled: Current visit: Yes Status: Chronic There has not been an exacerbation of hyperglycemia with stopping all of her oral meds. Continue to monitor blood sugars, short acting insulin as needed. Once taking p.o. adequately and blood sugars going up, likely resume her outpatient dose of metformin (5) Hypothyroid: Current visit: Yes Status: Chronic Stable on outpatient dose of levothyroxine. (6) Anemia: Current visit: Yes Status: Chronic Monitor hemoglobin as noted above. Transfuse for hemoglobin less than 7. (7) CKD (chronic kidney disease): Current visit: No Status: Chronic Laboratory increases in BUN and creatinine partially explainable by GI blood. NSAIDs may have contributed some to her worsening renal function. Monitor urine output, BUN and creatinine and avoid nephrotoxins. (8) Osteoarthritis: Current visit: Yes Status: Acute Neck pain a long-standing problem. Avoid NSAIDs. PT consultation. Physical measures with local heat. (9) Essential hypertension: Current visit: Yes Status: Acute Blood pressures are starting to go up which overall I interpret as a good sign. KEELEY inhibitor contraindicated due to hyperkalemia. Diuretic remains on hold. I am restarting low-dose metoprolol and monitoring blood pressure and pulse response. (10) Hyperkalemia: Current visit: Yes Status: Acute Potassium is gone up again slightly, not high enough to require any specific intervention. Lisinopril has been discontinued. Recheck potassium tomorrow. (11) Aortic stenosis: Current visit: Yes Status: Chronic No symptoms clearly attributable to this. Because she will require anesthesia for follow-up endoscopy, orthodontist have requested a follow-up echocardiogram. Will obtain while inpatient to expedite. Subjective Interval history since last seen: Mrs. Iqbal has had no complaints of dizziness lightheadedness stomach upset abdominal pain or shortness of breath. She is still having very small bowel movements that are melanotic but not grossly bloody. Her blood pressures have been creeping upward. Her hemoglobin has stabilized after a total of 5 units of packed red cells. Her INR has not changed much compared to yesterday following 2 units of FFP and 5 mg of vitamin K. Her only complaint is that she would like to eat and that her neck is a bit sore. Her neck pain is long-standing and for which she was taking ibuprofen and naproxen at home. Exam Narrative Exam Narrative: Awake alert and in good spirits, no distress. Blood pressures are starting to go up. Can see neck veins because of neck size. Her lungs are clear in the upper lung burrell, diminished at the bases bilaterally.. 2/6 to 3/ 6 systolic ejection murmur heard throughout the precordium, no diastolic murmur S3 or S4. Abdomen obese soft no tenderness anywhere with normal bowel sounds. Her legs are large, trace ankle edema. No open ulcers on the lower extremities. Some chronic pigmentary changes probably from stasis dermatitis in the past? Objective Objective Clinical Data: Abnormal lab results 05/07/18 05/08/18 05/08/18 Range/Units 09:25 16:10 16:10 WBC (4.4-10.8) k/cumm RBC (4.00-5.20) m/cumm Hgb 6.9 L* (12.0-15.5) g/dL Hct 21.4 L (36.0-46.0) % RDW (11.7-14.6) % PT 22.2 H D (9.3-10.8) sec Potassium (3.5-5.1) mmol/L Chloride (98-107) mmol/L Carbon Dioxide (21.0-32.0) mmol/L BUN (7-18) mg/dL Creatinine (0.55-1.02) mg/dL Crossmatch See Detail 05/09/18 05/09/18 05/09/18 Range/Units 06:45 06:45 07:18 WBC 10.87 H (4.4-10.8) k/cumm RBC 2.95 L (4.00-5.20) m/cumm Hgb 8.3 L (12.0-15.5) g/dL Hct 25.7 L D (36.0-46.0) % RDW 16.1 H (11.7-14.6) % PT 21.1 H (9.3-10.8) sec Potassium 5.7 H (3.5-5.1) mmol/L Chloride 114 H (98-107) mmol/L Carbon Dioxide 20.1 L (21.0-32.0) mmol/L BUN 95 H* D (7-18) mg/dL Creatinine 1.63 H D (0.55-1.02) mg/dL Crossmatch Vital Signs Temperature 35.8 C L 05/09/18 11:55 Temperature Source Tympanic 05/09/18 11:55 Pulse 53 L 05/09/18 11:55 Pulse 66 05/09/18 08:43 Respiratory Rate 22 05/09/18 08:43 Respiratory Effort 05/09/18 07:30 Respiratory Depth Normal 05/09/18 07:30 Respiratory Pattern Normal 05/09/18 07:30 Blood Pressure 125/42 L 05/09/18 11:55 Blood Pressure Mean 74 05/09/18 08:43 Blood Pressure Position Sitting 05/09/18 07:30 Pulse Oximetry 98 05/09/18 11:55 Respiratory End-tidal CO2 32 05/08/18 14:51 Oxygen Delivery Method Room Air 05/09/18 11:55 Oxygen Flow Rate 0 05/09/18 11:55 Fraction of Inspired Oxygen (FIO2) 0 05/08/18 03:35 Pain Level 0 05/09/18 11:55 Intake & Output 05/08/18 05/09/18 05/09/18 23:59 11:59 23:59 Intake Total 2138 / 2138 2330.000 / 2330.000 Output Total 1750 / 1750 1300 / 1300 Balance 388 / 388 1030.000 / 1030.000 Weight 122 kg Intake: IV 1130 / 1130 1230.000 / 1230.000 Oral 650 / 650 Blood Product 1008 / 1008 350 / 350 Frozen Plasma Unit 350 / 350 [id number] Frozen Plasma Unit 0 / 0 [id number] Rbc Leuko Reduced Unit 300 / 300 [id number] Rbc Leuko Reduced Unit 350 / 350 [id number] Rbc Leuko Reduced Unit 358 / 358 [id number]* Other 100 / 100 Rbc Leuko Reduced Unit 100 / 100 [id number] Output: Urine 1750 / 1750 1300 / 1300 Other: Urine Color Yellow Pale Urine Appearance Clear Clear Urine Odor Normal Normal Comment mixed with stool Stool Occult Blood Positive Positive Stool Size Small Moderate Stool Characteristics Black Soft Bloody Formed Black Emesis Description None Voiding Methods Bedside Commode Bedside Commode Laboratory Results WBC 10.87 k/cumm (4.4-10.8) H 05/09/18 06:45 RBC 2.95 m/cumm (4.00-5.20) L 05/09/18 06:45 Hgb 8.3 g/dL (12.0-15.5) L 05/09/18 06:45 Hct 25.7 % (36.0-46.0) L D 05/09/18 06:45 MCV 87.1 fL (80-95) 05/09/18 06:45 MCH 28.1 pg (27.0-33.0) 05/09/18 06:45 MCHC 32.3 g/dL (32.0-36.0) 05/09/18 06:45 RDW 16.1 % (11.7-14.6) H 05/09/18 06:45 Plt Count 356 x1000/uL (130-400) 05/09/18 06:45 MPV 9.1 fL (8.0-11.0) 05/09/18 06:45 Immature Gran % 1.1 05/08/18 06:18 Neutrophils % 65.1 05/08/18 06:18 Lymphocytes % 22.9 05/08/18 06:18 Monocytes % 7.3 05/08/18 06:18 Eosinophils % 3.3 05/08/18 06:18 Basophils % 0.3 05/08/18 06:18 Absolute Neutrophils 7.53 k/cumm (1.2-6.7) H 05/08/18 06:18 Absolute Lymphocytes 2.65 k/cumm (1.2-3.4) 05/08/18 06:18 Absolute Monocytes 0.84 k/cumm (0.11-0.7) H 05/08/18 06:18 Absolute Eosinophils 0.38 k/cumm (0.0-0.7) 05/08/18 06:18 Absolute Basophils 0.03 k/cumm (0.0-0.2) 05/08/18 06:18 Differential Comment Rbc morph reviewed 05/07/18 08:45 RBC Morphology See below 05/07/18 08:45 Polychromasia Present 05/07/18 08:45 Hypochromasia 1+ 05/07/18 08:45 Basophilic Stippling Present 05/07/18 08:45 Anisocytosis 1+ 05/07/18 08:45 PT 21.1 sec (9.3-10.8) H 05/09/18 07:18 INR 2.2 (1.0-3.5) 05/09/18 07:18 APTT 43.0 sec (21.0-31.4) H 05/07/18 08:45 Sodium 144 mmol/L (136-145) 05/09/18 06:45 Potassium 5.7 mmol/L (3.5-5.1) H 05/09/18 06:45 Chloride 114 mmol/L (98-107) H 05/09/18 06:45 Carbon Dioxide 20.1 mmol/L (21.0-32.0) L 05/09/18 06:45 Anion Gap 9.9 mmol/L (3-11) 05/09/18 06:45 BUN 95 mg/dL (7-18) H* D 05/09/18 06:45 Creatinine 1.63 mg/dL (0.55-1.02) H D 05/09/18 06:45 Estimated GFR/1.73 m2 31.10 (mL/min/1.73m2) 05/09/18 06:45 Glucose 99 mg/dL (70-100) 05/09/18 06:45 Calcium 8.7 mg/dL (8.5-10.1) 05/09/18 06:45 Magnesium 2.4 mg/dL (1.8-2.4) 05/07/18 08:45 Total Bilirubin 0.2 mg/dL (0.2-1.0) 05/08/18 06:18 AST 15 U/L (15-37) 05/08/18 06:18 ALT 18 U/L (12-78) 05/08/18 06:18 Alkaline Phosphatase 44 U/L (46-116) L 05/08/18 06:18 Troponin I < 0.02 ng/mL (0.00-0.06) 05/07/18 08:45 Total Protein 6.1 g/dL (6.4-8.2) L 05/08/18 06:18 Albumin 2.4 g/dL (3.4-5.0) L 05/08/18 06:18 TSH 3.22 uIU/mL (0.358-3.74) 05/07/18 08:45 Patient ABO/Rh A Negative 05/07/18 09:25 Antibody Screen Negative 05/07/18 09:25 Crossmatch See Detail 05/07/18 09:25
--- NOTE | 2018-05-09 13:54 | INDS_ITS ---
Date of service: 05/09/18 Time of Service: 13:41 PT Notes Inpatient Physical Therapy Discharge Summary Date: 05/09/18 Dates of Service: 05/09/18 SUBJECTIVE: Pt sitting in chair, states her neck feels much better after morning session. Reports she tried the kpad on her shoulders and that seemed to help. Agreeable to therapy session. OBJECTIVE: Bed Mobility/Transfers: Supine <> sit: pt reports she is performing independently Sit-stand: independent Stand-sit: independent commode-chair: independent no device Gait: independent no device 200ft. Steady step through gait pattern. Stairs: Performed up/down 5 steps with railing, step to step independently. Pt slightly short of breath with exertion, reports she gets short of breath at home as well and requires rest breaks after doing the stairs. Pt deferred flight of steps stating she felt she would be able to do her stairs at home. Pt returned to room and up in recliner chair. Balance: Static Sitting: normal Dynamic Sitting: normal Static Standing: normal Dynamic Standing: good TREATMENT: Pt less tight and tender to palpation throughout upper traps, levator and rhomboids. Pt received manual therapy/ soft tissue mobilization, trigger point release and stretching performed to bilateral upper traps, levator scapula and rhomboids. Pt able to perform full cervical ROM all ranges pain free at end of treatment session. Assessment: Pt is a 72yr old female admitted with cervical pain, gastrointestinal bleed and anemia in setting of gastric ulcers, chronic anemia, obesity, diabetes mellitus type II, total knee replacement, obstructive sleep apnea uses CPAP, atrial fibrillation, depression. Patient was seen for 2 PT visits. Progressed from supervision transfers to independent, from supervision gait with FWW 80ftx2 to independent gait with no device 200ft, able to ascend/descend 5 steps with railing independently. Cervical pain and tightness reduced by 90% with soft tissue mobilization, trigger point release and stretching to upper shoulder and scapular musculature. Pt would benefit from continued use of kpad for pain reduction and referral to outpatient PT for termite technician management of neck pain and instruction in home maintenance program for cervical stretching and strengthening. Discharge PT as patient has met goals, anticipate she will be discharged to home tomorrow. Goals: Goals X1 week 1. Supine-Sit independent 2. Sit-Supine independent 3. Sit-Stand independent 4. Stand-Sit independent 5. Bed-Chair supervision 6. Chair-Bed supervision 7. Gait supervision with SPC 80ftx2 8. Stairs up/down 12 steps with railing and cane, S 9. Pain free ROM cervical spine all ranges Pt met goals 1-7 and 9. DISCHARGE RECOMMENDATIONS: home with , outpatient PT recommended for cervical pain/manual therapy TREATMENT CODE/TIME: 27min TAx2 1340 G Codes in the area mobility of walking and moving around: projected status GP [id number]. Discharge status (if discharging) GP [id number] Vanessa Dias PT
--- NOTE | 2018-05-09 15:06 | PDOC.CMPRO ---
- If Service Date Differs Date of service: 05/09/18 Time of Service: 15:06 Care Management Progress Note S/O: CM met with Maliha at the bedside she is alert and engaged with CM she states she is feeling better. Maliha will transition to the medical surgical unit today. She will discharge home when medically ready she will not need additional services at this time of discharge. She is asking about resources to assist in payment of her medications. She states that the Dofetilide is an expensive medication. CM to provide resources r/t community resources for prescriptions assistance. A: 72 year old female admitted with GI bleed with a history of anticoagulation r/t to afib. P:Maliha is being cared for in the ICU she was changed to acute today. Maliha's coumadin in on hold at this time. She will be discharged home when medically ready. She will need to have a follow up appointment scheduled with primary care provider prior to discharge. Anticipate no additional services at time of discharge. CM to continue to provide support to patient and family discharge planning.
[2018-05-09 15:07] LABS: HCT 25.7 % (36.0-46.0); HGB 8.2 g/dL (12.0-15.5)
--- NOTE | 2018-05-09 15:21 | CMPROGNOTE_ITS ---
- If Service Date Differs Date of service: 05/09/18 Time of Service: 15:06 Care Management Progress Note S/O: CM met with Maliha at the bedside she is alert and engaged with CM she states she is feeling better. Maliha will transition to the medical surgical unit today. She will discharge home when medically ready she will not need additional services at this time of discharge. She is asking about resources to assist in payment of her medications. She states that the Dofetilide is an expensive medication. CM to provide resources r/t community resources for prescriptions assistance. A: 72 year old female admitted with GI bleed with a history of anticoagulation r /t to afib. P:Maliha is being cared for in the ICU she was changed to acute today. Maliha's coumadin in on hold at this time. She will be discharged home when medically ready. She will need to have a follow up appointment scheduled with primary care provider prior to discharge. Anticipate no additional services at time of discharge. CM to continue to provide support to patient and family discharge planning.
[2018-05-09] MEDS: Simvastatin 10 MG TAB PO (20:17)
[2018-05-10] VITALS (13 sets, daily range): BP systolic 120–154; BP diastolic 35–79; PULSE 70–79; RESP 28; TEMP 35.8–36.5; O2SAT 89–95
[2018-05-10] MEDS: Sucralfate 1 GM TAB PO ×2 (03:11→09:11)
[2018-05-10] MEDS: ACETAMINOPHEN 1,000 MG/100 ML BTL 400 MG IVPB (05:39)
[2018-05-10] MEDS: Levothyroxine 25 MCG TAB PO (05:39)
[2018-05-10] MEDS: Albuterol 2.5 MG/3 ML INH SOLN VIAL UPD (06:21)
[2018-05-10 07:25] LABS: HCT 26.5 % (36.0-46.0); HGB 8.3 g/dL (12.0-15.5); Mean Corp. HGB Concentration 31.3 g/dL (32.0-36.0); Mean Corpuscular Hemoglobin 28.3 pg (27.0-33.0); Mean Corpuscular Volume 90.4 fL (80-95); Mean Platelet Volume 8.9 fL (8.0-11.0); Platelet Count 362 x1000/uL (130-400); RBC 2.93 m/cumm (4.00-5.20); RBC Distribution Width 16.6 % (11.7-14.6); White Blood Cell Count 13.34 k/cumm (4.4-10.8)
[2018-05-10 07:26] LABS: Anion Gap 12.2 mmol/L (3-11); BUN 53 mg/dL (7-18); CO2 18.8 mmol/L (21.0-32.0); CREATININE 1.56 mg/dL (0.55-1.02); Calcium 8.7 mg/dL (8.5-10.1); Chloride 110 mmol/L (98-107); Estimated GFR 32.72 (mL/min/1.73m2); Glucose 169 mg/dL (70-100); Potassium 5.5 mmol/L (3.5-5.1); Sodium 141 mmol/L (136-145)
--- NOTE | 2018-05-10 07:50 | MERGE_ITS ---
*[facility]* *[facility]* [address] [place] [address] Date of study: 05/10/2018 Transthoracic Echocardiography M-mode, complete 2D, complete spectral Doppler, and color Doppler *STUDY CONCLUSIONS* Impressions: Mild worsening of the aortic valve gradient, still in moderate range, moderate to severe mitral calcification, significant worsening of PA pressure, small PFO. Summary: 1. Left ventricle: The cavity size was normal. Wall thickness was increased in a pattern of moderate LVH. Systolic function was normal. The estimated ejection fraction was 60-65%. Wall motion was normal; there were no regional wall motion abnormalities. Doppler parameters are consistent with high ventricular filling pressure. 2. Aortic valve: Valve mobility was restricted. Transvalvular velocity was increased. There was moderate stenosis. There was trivial regurgitation. Valve area (VTI): 1.4cm^2. Valve area (Vmax): 1.2cm^2. Valve area (Vmean): 1.3cm^2. 3. Mitral valve: Moderately calcified annulus. Moderately thickened, moderately calcified leaflets. Mobility was mildly restricted. Transvalvular velocity was increased. The findings are consistent with moderate stenosis based on velocity measurements, however MVA appears normal by PHT measurements. There was mild regurgitation. 4. Left atrium: The atrium was moderately dilated. 5. Right ventricle: The cavity size was mildly dilated. Wall thickness was mildly increased. Systolic function was normal. 6. Right atrium: The atrium was mildly dilated. 7. Atrial septum: There was a patent foramen ovale. Doppler showed a small rezd-uq-ifjed atrial level shunt, in the baseline state. 8. Tricuspid valve: There was moderate regurgitation. 9. Pulmonic valve: Transvalvular velocity was minimally increased. The findings are consistent with mild stenosis. 10. Pulmonary arteries: Pulmonary systolic pressure was moderately to severely increased. PA peak pressure: 68mm Hg (S). 11. Pericardium, extracardiac: A trivial pericardial effusion was identified posterior to the heart. *PATIENT PRESENTATION* Height: 149.9cm ((59in) ) S/D Pressure: 154 / 55 Weight: 107kg ((235.5lb) ) BSA: 2.18m^2 Test start time: 07:55 AM. Test stop time: 08:50 AM. 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 This study was interpreted by [facility]. Pertinent images and digital data are archived for permanent storage and are available for subsequent review. Comparison was made to the study of 04/24/2017. Study status: Routine. Transthoracic echocardiography. M-mode, complete 2D, complete spectral Doppler, and color Doppler. A Transthoracic Echocardiogram was performed. Scanning was performed from the parasternal, apical, subcostal, and suprasternal notch acoustic windows. Images were obtained using an [id number] cardiac ultrasound machine. Image quality was fair. Study completion: The patient tolerated the procedure well. *CARDIAC ANATOMY* Left ventricle: The cavity size was normal. Wall thickness was increased in a pattern of moderate LVH. Systolic function was normal. The estimated ejection fraction was 60-65%. Wall motion was normal; there were no regional wall motion abnormalities. Doppler parameters are consistent with high ventricular filling pressure. Aortic valve: Trileaflet; mildly thickened, mildly calcified leaflets. Valve mobility was restricted. Doppler: Transvalvular velocity was increased. There was moderate stenosis. There was trivial regurgitation. VTI ratio of LVOT to aortic valve: 0.45. Valve area (VTI): 1.4cm^2. Indexed valve area (VTI): 0.6cm^2/m^2. Peak velocity ratio of LVOT to aortic valve: 0.39. Valve area (Vmax): 1.2cm^2. Indexed valve area (Vmax): 0.5cm^2/m^2. Mean velocity ratio of LVOT to aortic valve: 0.41. Valve area (Vmean): 1.3cm^2. Indexed valve area (Vmean): 0.6cm^2/m^2. Mean gradient (S): 33.1mm Hg. Peak gradient (S): 57.4mm Hg. Aorta: Aortic root: The aortic root was normal in size. Ascending aorta: The ascending aorta was normal in size. Mitral valve: Moderately calcified annulus. Moderately thickened, moderately calcified leaflets. Mobility was mildly restricted. Doppler: Transvalvular velocity was increased. The findings are consistent with moderate stenosis based on velocity measurements, however MVA appears normal by PHT measurements. There was mild regurgitation. Valve area by pressure half-time: 3.1cm^2. Indexed valve area by pressure half-time: 1.4cm^2/m^2. Mean gradient (D): 7.5mm Hg. Peak gradient (D): 16.1mm Hg. Left atrium: The atrium was moderately dilated. Atrial septum: There was a patent foramen ovale. Doppler showed a small ttzh-ut-fcdur atrial level shunt, in the baseline state. Right ventricle: The cavity size was mildly dilated. Wall thickness was mildly increased. Systolic function was normal. Pulmonic valve: Poorly visualized. Doppler: Transvalvular velocity was minimally increased. The findings are consistent with mild stenosis. There was mild regurgitation. Peak gradient (S): 13.4mm Hg. Tricuspid valve: Structurally normal valve. Doppler: Transvalvular velocity was within the normal range. There was no evidence for stenosis. There was moderate regurgitation. Pulmonary artery: Poorly visualized. Pulmonary systolic pressure was moderately to severely increased. Main pulmonary artery: The artery was not well visualized. Right atrium: The atrium was mildly dilated. Pericardium: A prominent pericardial fat pad was present. A trivial pericardial effusion was identified posterior to the heart. Systemic veins: Inferior vena cava: Well visualized. The vessel was patent and mildly dilated in size. The respirophasic diameter changes were in the normal range (greater than or equal to 50%), consistent with normal central venous pressure. Baseline ECG: Normal sinus rhythm. Measurements Left ventricle Value 03/24/2017 Reference LV ID, ED, PLAX 5.0 cm 4.8 3.5 - 6.0 LV ID, ES, PLAX 3.2 cm 3.1 2.1 - 4.0 LV PW thickness, ED, PLAX 1.3 cm 1.3 LV end-diastolic volume, 103 ml 72 1-p A2C LV ejection fraction, 1-p 70 % 55 A2C LV end-diastolic volume, 102 ml 89 1-p A4C LV ejection fraction, 1-p 74 % 61 A4C LV e', lateral 0.073 m/sec LV E/e', lateral 28 LV e', medial 0.07 m/sec LV E/e', medial 29 LV e', average 0.071 m/sec LV E/e', average 28 Ventricular septum Value 03/24/2017 Reference IVS thickness, ED, PLAX 1.4 cm 1.3 LVOT Value 03/24/2017 Reference LVOT ID, A-P 2.0 cm 2.0 LVOT area 3.1 cm^2 3.2 LVOT peak velocity, S 1.46 m/sec 1.23 LVOT mean velocity, S 1.15 m/sec LVOT VTI, S 37.5 cm 32.5 LVOT peak gradient, S 8.5 mm Hg 6.1 LVOT mean gradient, S 5.6 mm Hg 3.7 Stroke volume (SV), LVOT 116 ml DP Stroke index (SV/bsa), 53 ml/m^2 LVOT DP Aortic valve Value 03/24/2017 Reference Aortic valve peak 3.8 m/sec 2.9 velocity, S Aortic valve mean 2.78 m/sec velocity, S Aortic valve VTI, S 84.0 cm Aortic mean gradient, S 33.1 mm Hg 18 Aortic peak gradient, S 57.4 mm Hg 34 VTI ratio, LVOT/AV 0.45 0.45 Aortic valve area, VTI 1.4 cm^2 1.4 Velocity ratio, peak, 0.39 0.42 LVOT/AV Aortic valve area, peak 1.2 cm^2 1.3 velocity Velocity ratio, mean, 0.41 LVOT/AV Aortic valve area, mean 1.3 cm^2 velocity Aortic valve area/bsa, 0.6 cm^2/m^2 mean velocity Aorta Value 03/24/2017 Reference Aortic root ID, ED 2.6 cm 2.6 Ascending aorta ID, A-P, S 2.8 cm 2.8 RVOT Value 03/24/2017 Reference RVOT VTI, S 33.7 cm 26.9 Left atrium Value 03/24/2017 Reference LA ID, A-P, ES 4.5 cm LA ID/bsa, A-P 2.1 cm/m^2 <=2.2 LA area, ES, A4C (H) 27.8 cm^2 25 8.8 - 23.4 LA area, ES, A2C 22 cm^2 LA volume, ES, 2-p 87 ml LA volume/bsa, ES, 2-p 40 ml/m^2 LA/aortic root ratio 1.77 1.87 Mitral valve Value 03/24/2017 Reference Mitral E-wave peak 2 m/sec 1.55 velocity Mitral A-wave peak 1.05 m/sec 0.83 velocity Mitral deceleration time (H) 242 ms 150 - 230 Mitral pressure half-time 70 ms 60 Mitral mean gradient, D 7.5 mm Hg Mitral peak gradient, D 16.1 mm Hg 9.6 Mitral E/A ratio, peak 1.92 1.86 Mitral valve area, PHT, DP 3.1 cm^2 3.7 Pulmonary veins Value 03/24/2017 Reference Pulmonary vein peak 0.74 m/sec 0.56 velocity, S Pulmonary vein peak 1.33 m/sec 0.83 velocity, D Pulmonary vein velocity 0.56 0.68 ratio, peak, S/D Pulmonary vein A-wave 0.36 m/sec 0.33 reversal peak velocity Pulmonary vein A-wave 116 ms reversal duration Pulmonary arteries Value 03/24/2017 Reference PA pressure, S, DP (H) 68 mm Hg <=30 Tricuspid valve Value 03/24/2017 Reference Tricuspid regurg peak 4.2 m/sec 3.2 velocity Tricuspid peak RV-RA 71.5 mm Hg 39.8 gradient Right atrium Value 03/24/2017 Reference RA area, ES, A4C (H) 22.8 cm^2 23 8.3 - 19.5 Systemic veins Value 03/24/2017 Reference Estimated CVP 10 mm Hg Right ventricle Value 03/24/2017 Reference RV pressure, S, DP (H) 82 mm Hg <=30 Pulmonic valve Value 03/24/2017 Reference Pulmonic peak gradient, S 13.4 mm Hg Legend: (L) and (H) jessica values outside specified reference range. I have personally reviewed the images and have reviewed and edited the reported findings. Electronically signed by Leandro Valentine 05/10/2018 14:04
[2018-05-10] MEDS: Insulin Aspart 300 UNITS/3 ML PEN SC ×2 (09:09→11:48)
[2018-05-10] MEDS: Furosemide 20 MG TAB PO (09:15)
[2018-05-10] MEDS: Pantoprazole 40 MG TABCR PO (09:15)
[2018-05-10] MEDS: Metoprolol CR 100 MG TABCR PO (09:16)
--- NOTE | 2018-05-10 09:30 | PDOC.CMDIS ---
- If Service Date Differs Date of service: 05/10/18 Time of Service: 09:30 LACE Index Scoring Tool - Questions: Length of Stay (in days): 4 - 6 Acuity (Admit via E.D.?): Yes Comorbidities: Diabetes w/o Complication E.D. Visits: 2 - Answers: Total Score: 10 Risk of Readmission: High Risk Care Management Discharge Reason for Hospitalization: GI bleed Discharge Plan: Maliha will be discharged home today with follow up with primary care on 03.12.18. Her anticoagulation is on hold until directed she will follow up with surgical services. CM provided patient with a coupon for Dofetilide to reduce her monthly copay. [facility] She feels she is ready to return home. She states she understands signs and symptoms to monitor for her afib and her recent GI bleed. She states she is ready to return home today. Her spouse will transport her at time of discharge via private car. Patient/Family Education Needs: Discharge education, limiations and follow up plan of care including ask me three discussion and self management. Maliha with contact primary care with questions or concerns and follow up with practice on Tuesday this week. Services Needed at Discharge: Physical Therapy
--- NOTE | 2018-05-10 10:06 | CMDISCH_ITS ---
- If Service Date Differs Date of service: 05/10/18 Time of Service: 09:30 LACE Index Scoring Tool - Questions: Length of Stay (in days): 4 - 6 Acuity (Admit via E.D.?): Yes Comorbidities: Diabetes w/o Complication E.D. Visits: 2 - Answers: Total Score: 10 Risk of Readmission: High Risk Care Management Discharge Reason for Hospitalization: GI bleed Discharge Plan: Maliha will be discharged home today with follow up with primary care on 03.12.18. Her anticoagulation is on hold until directed she will follow up with surgical services. CM provided patient with a coupon for Dofetilide to reduce her monthly copay. [facility] She feels she is ready to return home. She states she understands signs and symptoms to monitor for her afib and her recent GI bleed. She states she is ready to return home today. Her spouse will transport her at time of discharge via private car. Patient/Family Education Needs: Discharge education, limiations and follow up plan of care including ask me three discussion and self management. Maliha with contact primary care with questions or concerns and follow up with practice on Tuesday this week. Services Needed at Discharge: Physical Therapy
--- NOTE | 2018-05-10 11:33 | W.PM.DS.N ---
DS: Diagnosis Discharge Diagnosis (1) Peptic ulcer disease with hemorrhage: Status: Acute (2) Atrial fibrillation: Status: Acute (3) Anticoagulated on warfarin: Status: Acute (4) Diabetes type 2, controlled: Status: Chronic (5) Hypothyroid: Status: Chronic (6) Anemia: Status: Chronic (7) CKD (chronic kidney disease): Status: Chronic (8) Osteoarthritis: Status: Acute (9) Essential hypertension: Status: Acute (10) Hyperkalemia: Status: Acute (11) Aortic stenosis: Status: Chronic Discharge Plan Disposition Patient Disposition: HOME Condition: Stable Discharge Details Chief Complaint: Palpitatns Reason For Visit: ANEMIA Admit Date/Time: 05/07/18 10:15 Admit Provider: Gurpreet Lizarraga Attending Provider: Gurpreet Lizarraga Primary Care Provider: Cesar Nye ED Provider: Regan Georges Hospital Course Hospital Course: 72-year-old woman with chronic anticoagulation for A. fib, presented to the emergency room because of weakness, feeling palpitations and leg heaviness. She had been self-medicating her chronic neck pain with acetaminophen and ibuprofen and naproxen. She had increased weakness and fatigue over the prior 24 hours. In the ER she was found to be in sinus rhythm, hemoglobin of 6.7 with elevated potassium BUN and creatinine all new and supratherapeutic INR. She was admitted for evaluation and treatment of presumed GI bleed. She had melanotic but not grossly bloody stools in her initial stay. Her INR was supratherapeutic at 4.9 and was reversed with 2 units of FFP and 5 mg of vitamin K. She received throughout the course of her hospitalization a total of 5 units of packed red blood cells with hemoglobin dione 6.7 stabilizing at 8.3. After improvement of her INR, but not normalization, she underwent EGD by Dr. Mendez. EGD showed several gastric ulcers oozing that were cauterized as well as very friable gastric mucosa. She was empirically started on PPI intravenously which continued and Carafate was added. She had subsequent small dark bowel movements but no gross blood. She had no problems with hypotension. She had no recurrence of A. fib. She remained on her outpatient dose of dofetilide. Her warfarin remains on hold. Her BUN and creatinine were quite elevated on admission, 156 and 2.58 respectively. She received IV hydration and KEELEY inhibitor and diuretic were held. BUN and creatinine were 53 and 1.56 on discharge. She had hyperkalemia on admission at 6.1 which was 5.5 on discharge without any specific intervention other than stopping her lisinopril. She has known aortic stenosis with no symptoms clearly referable to this. Anesthesiology requested an echocardiogram prior to any further anesthesia for future endoscopies. Echocardiogram was done on the day of discharge with reading still pending. She had no problems referable to her diabetes with blood sugars below 200 on no medication initially and then resumption of her usual outpatient dose of metformin. She was not hypotensive. Lisinopril was discontinued during this hospitalization and she, after stabilization of hemoglobin, was started back on her outpatient dose of metoprolol. No changes were made to her thyroid dose. She was mildly edematous after fluid resuscitation. Her Lasix had been held on admission and resumed the morning of discharge. Oxygen saturations at rest were in the mid 90% range with brief dips into the 88-89% with activity. Her neck pain was treated with physical measures, PT and local heat and acetaminophen. She was instructed not to take ibuprofen or naproxen. Home Meds and New Rx's Prescriptions: New sucralfate 1 gram Tablet 1 g PO Q6H Qty: 120 RF: 1 pantoprazole 40 mg Tablet,Delayed Release (Dr/Ec) 40 mg PO BID@0730,1999 Qty: 120 RF: 1 Continue albuterol sulfate 90 mcg/actuation HFA aerosol inhaler 2 puff IH QID PRNRF: 0 dofetilide 500 mcg capsule 500 mcg PO Q12H RF: 0 blood sugar diagnostic [Accu-Chek Vickie Plus test strp] strip .ROUTE .MEDSUPPLY Qty: 20 RF: 0 levothyroxine 25 mcg capsule 25 mcg PO DAILY RF: 0 magnesium chloride 64 mg tablet,delayed release (DR/EC) 64 mg PO BID RF: 0 metformin 500 mg tablet 500 mg PO BID RF: 0 metoprolol succinate 100 mg tablet extended release 24 hr 100 mg PO DAILY RF: 0 simvastatin 10 mg tablet 10 mg PO QPM RF: 0 furosemide 20 mg Tablet 10 mg PO BID RF: 0 Discontinued lisinopril 5 mg tablet 5 mg PO BID RF: 0 warfarin 5 mg tablet 5 mg PO DIRECTED RF: 0 No Action blood sugar diagnostic strip .ROUTE .MEDSUPPLY Qty: 20 RF: 0 Discharge Instructions Instructions: Gastrointestinal Bleeding (DC) Additional Instructions: Do not take warfarin until instructed to resume it. Also note that lisinopril has been stopped. Call your primary care provider or return to the hospital if you notice increasing shortness of breath, weakness, blood in your stool or increasingly black or dark bowel movements. Referrals: Cesar Nye [Primary Care Provider] - 05/12/18 12:00 am (Keep the appointment on May 12 as already scheduled) Ludivina Deutsch MD [ [facility] STAFF PHYSICIAN] - (Please call Dr. Deutsch's office to schedule a follow-up appointment in about 1 month) Activity:: Activity as Tolerated Equipment/Supplies:: No Equipment Needed Diet:: Carb Counting Discharge Orders Discharge Orders: Discharge Order (Routine); Ordered 05/10/18 Ordered By: Joshua Chow DS: Data Vitals/I&O Vitals and I&O: Vital Signs Temperature 35.8 C L 05/10/18 07:30 Temperature Source Tympanic 05/10/18 07:30 Pulse 74 05/10/18 09:14 Pulse Rhythm Regular 05/09/18 23:22 Pulse 66 05/09/18 08:43 Respiratory Rate 28 H 05/10/18 07:30 Respiratory Effort 05/10/18 07:40 Respiratory Depth Shallow 05/10/18 07:40 Respiratory Pattern Normal 05/09/18 07:30 Blood Pressure 130/56 L 05/10/18 09:14 Blood Pressure Mean 73 05/10/18 09:14 Blood Pressure Position Sitting 05/09/18 07:30 Pulse Oximetry 95 05/10/18 09:25 Respiratory End-tidal CO2 32 05/08/18 14:51 Oxygen Delivery Method Nasal Cannula 05/10/18 07:30 Oxygen Flow Rate 2 05/10/18 07:30 Fraction of Inspired Oxygen (FIO2) 0 05/08/18 03:35 Pain Level 0 05/10/18 07:30 Intake & Output 05/09/18 05/09/18 05/10/18 11:59 23:59 11:59 Intake Total 2330.000 / 2330.000 2420.000 / 2420.000 1100 / 1100 Output Total 1300 / 1300 1200 / 1200 2325 / 2325 Balance 1030.000 / 1389.077 6891.000 / 1220.000 -1225 / -1225 Weight 122 kg 124.8 kg Intake: IV 1230.000 / 8471.412 1558.000 / 1310.000 780 / 780 Oral 650 / 650 1110 / 1110 320 / 320 Blood Product 350 / 350 Rbc Leuko Reduced Unit 350 / 350 [id number] Other 100 / 100 Rbc Leuko Reduced Unit 100 / 100 [id number] Output: Urine 1300 / 1300 1200 / 1200 2325 / 2325 Other: Urine Color Pale Yellow Yellow Urine Appearance Clear Clear Clear Urine Odor Normal None Comment mixed with stool in commode. Able to heme test stool from bedpad. stool heme positive. Stool Occult Blood Positive Positive Stool Size Moderate Moderate Stool Characteristics Soft Soft Formed Black Black Voiding Methods Bedside Commode Bedside Commode Bedside Commode Pending studies at discharge: AMBULATORY CARDIAC MONITORING (06/25/01) C.A.T. SCAN OF ABDOMEN (12/21/96) DIGITAL RECTAL EXAM (12/21/96) ELECTROCARDIOGRAM (09/11/02) Endoscopic polypectomy of large intestine (01/04/14) INJECT/INFUSE NEC (12/21/96) Non-invasive mechanical ventilation (12/19/13) OPEN AND OTHER RESECTION OF TRANSVERSE COLON (08/20/09) OPEN AND OTHER SIGMOIDECTOMY (08/20/09) Other oxygen enrichment (12/19/13) REPAIR OF INTESTINE NEC (08/20/09) WBC 13.34 k/cumm (4.4-10.8) H 05/10/18 06:10 RBC 2.93 m/cumm (4.00-5.20) L 05/10/18 06:10 Hgb 8.3 g/dL (12.0-15.5) L 05/10/18 06:10 Hct 26.5 % (36.0-46.0) L 05/10/18 06:10 MCV 90.4 fL (80-95) D 05/10/18 06:10 MCH 28.3 pg (27.0-33.0) 05/10/18 06:10 MCHC 31.3 g/dL (32.0-36.0) L 05/10/18 06:10 RDW 16.6 % (11.7-14.6) H 05/10/18 06:10 Plt Count 362 x1000/uL (130-400) 05/10/18 06:10 MPV 8.9 fL (8.0-11.0) 05/10/18 06:10 Immature Gran % 1.1 05/08/18 06:18 Neutrophils % 65.1 05/08/18 06:18 Lymphocytes % 22.9 05/08/18 06:18 Monocytes % 7.3 05/08/18 06:18 Eosinophils % 3.3 05/08/18 06:18 Basophils % 0.3 05/08/18 06:18 Absolute Neutrophils 7.53 k/cumm (1.2-6.7) H 05/08/18 06:18 Absolute Lymphocytes 2.65 k/cumm (1.2-3.4) 05/08/18 06:18 Absolute Monocytes 0.84 k/cumm (0.11-0.7) H 05/08/18 06:18 Absolute Eosinophils 0.38 k/cumm (0.0-0.7) 05/08/18 06:18 Absolute Basophils 0.03 k/cumm (0.0-0.2) 05/08/18 06:18 Differential Comment Rbc morph reviewed 05/07/18 08:45 RBC Morphology See below 05/07/18 08:45 Polychromasia Present 05/07/18 08:45 Hypochromasia 1+ 05/07/18 08:45 Basophilic Stippling Present 05/07/18 08:45 Anisocytosis 1+ 05/07/18 08:45 PT 21.1 sec (9.3-10.8) H 05/09/18 07:18 INR 2.2 (1.0-3.5) 05/09/18 07:18 APTT 43.0 sec (21.0-31.4) H 05/07/18 08:45 Sodium 141 mmol/L (136-145) 05/10/18 06:10 Potassium 5.5 mmol/L (3.5-5.1) H 05/10/18 06:10 Chloride 110 mmol/L (98-107) H 05/10/18 06:10 Carbon Dioxide 18.8 mmol/L (21.0-32.0) L 05/10/18 06:10 Anion Gap 12.2 mmol/L (3-11) H 05/10/18 06:10 BUN 53 mg/dL (7-18) H D 05/10/18 06:10 Creatinine 1.56 mg/dL (0.55-1.02) H 05/10/18 06:10 Estimated GFR/1.73 m2 32.72 (mL/min/1.73m2) 05/10/18 06:10 Glucose 169 mg/dL (70-100) H 05/10/18 06:10 Calcium 8.7 mg/dL (8.5-10.1) 05/10/18 06:10 Magnesium 2.4 mg/dL (1.8-2.4) 05/07/18 08:45 Total Bilirubin 0.2 mg/dL (0.2-1.0) 05/08/18 06:18 AST 15 U/L (15-37) 05/08/18 06:18 ALT 18 U/L (12-78) 05/08/18 06:18 Alkaline Phosphatase 44 U/L (46-116) L 05/08/18 06:18 Troponin I < 0.02 ng/mL (0.00-0.06) 05/07/18 08:45 Total Protein 6.1 g/dL (6.4-8.2) L 05/08/18 06:18 Albumin 2.4 g/dL (3.4-5.0) L 05/08/18 06:18 TSH 3.22 uIU/mL (0.358-3.74) 05/07/18 08:45 Patient ABO/Rh A Negative 05/07/18 09:25 Antibody Screen Negative 05/07/18 09:25 Crossmatch See Detail 05/07/18 09:25 Labs on day of discharge: Labs from last 24 hours 05/10/18 05/10/18 05/09/18 06:10 06:10 14:50 WBC 13.34 H RBC 2.93 L Hgb 8.3 L 8.2 L Hct 26.5 L 25.7 L MCV 90.4 D MCH 28.3 MCHC 31.3 L RDW 16.6 H Plt Count 362 MPV 8.9 Sodium 141 Potassium 5.5 H Chloride 110 H Carbon Dioxide 18.8 L Anion Gap 12.2 H BUN 53 H D Creatinine 1.56 H Estimated GFR/1.73 m2 32.72 Glucose 169 H Calcium 8.7
== END 2018-05-10 13:50 | disposition home or self-care (01) | DRG 378 ==
LOC: ER 13:03 → ICU 14:02
PROVIDERS: Internal Medicine; Surgery; Admitting Provider Family Medicine; Emergency Provider Student in an Organized Health Care Education/Training Program; PCP Family Medicine; Visit Provider Family Medicine
PROC: 0DJ68ZZ Inspection of Stomach, Via Natural or Artificial Opening Endoscopic (ICD-10-PCS; CPT 43235; principal; 2018-05-08 14:00)
DX: K25.0 Acute gastric ulcer with hemorrhage (principal); D62 Acute posthemorrhagic anemia; Z68.43 Body mass index [BMI] 50.0-59.9, adult; E87.5 Hyperkalemia; T39.315A Adverse effect of propionic acid derivatives, initial encounter; R79.1 Abnormal coagulation profile; T45.515A Adverse effect of anticoagulants, initial encounter; I95.9 Hypotension, unspecified; Z79.84 Long term (current) use of oral hypoglycemic drugs; G47.33 Obstructive sleep apnea (adult) (pediatric); E66.9 Obesity, unspecified; I48.91 Unspecified atrial fibrillation; Z79.01 Long term (current) use of anticoagulants; E03.9 Hypothyroidism, unspecified; Z67.11 Type A blood, Rh negative; E11.22 Type 2 diabetes mellitus with diabetic chronic kidney disease; N18.9 Chronic kidney disease, unspecified; I12.9 Hypertensive chronic kidney disease with stage 1 through stage 4 chronic kidney disease, or unspecified chronic kidney disease; I08.0 Rheumatic disorders of both mitral and aortic valves
CPT/HCPCS: 43255; 36415; 36430; 36592; 76942; 80048; 80053; 85027; 86850; 86900; 86901; 86920; 93005; 93306; 94640; 96365; 96366; 96367; 96372; 96375; 97161; 97530; 99213; 99222; 99233; 99239; 99285; NC; 71046; 83735; 84132; 84443; 84484; 85014; 85018; 85025; 85610; 85730; 93010; 99219; G0378; J0131; J0456; J0610; J0696; J2250; J3010; J7613; J7620; P9016; P9059

== ENCOUNTER 2018-05-10 14:52 | Inpatient (IN) | payer OTHER, SELFPAY ==
[2018-05-10] VITALS (31 sets, daily range): BP systolic 124–177; BP diastolic 34–89; PULSE 63–99; RESP 10–36; TEMP 37.1–37.4; O2SAT 93–100
--- NOTE | 2018-05-10 14:54 | DI.RAD_ITS ---
SYMPTOM/DIAGNOSIS: SOB, LEG SWELLING, ? ACUTE CHF PORTABLE AP CHEST: Comparison is made with 05/07/18. There is a poor inspiration. The heart appears enlarged. There is prominence of the pulmonary vasculature and bilateral pulmonary infiltrates noted. The findings raise the question of congestive heart failure.
--- NOTE | 2018-05-10 14:59 | ED.GENADUL_ITS ---
Discharge Plan Disposition Patient Disposition: [facility] INPATIENT Condition: Fair Discharge Details Chief Complaint: RespSymp Clinical Impression: Acute exacerbation of CHF (congestive heart failure) Reason For Visit: CHF, DIASTOLIC, RECENT GI BLEED Admit Date/Time: 05/10/18 16:16 Admit Provider: Joshua Chow Attending Provider: Joshua Chow Primary Care Provider: Cesar Nye ED Provider: Mayelin Berger Discharge Data Discharge Date/Time-TO BE ENTERED AT DEPARTURE: 05/10/18 17:51 Medical Decision Making 72-year-old female with a history of CHF, aortic stenosis, obstructive sleep apnea, diabetes, hypertension, hyperlipidemia, atrial fibrillation on Benji and hypothyroidism who presents for shortness of breath. Patient was admitted here 3 days ago from the ED for a questionable pneumonia, hyperkalemia and anemia. She had a potassium of 6.1 and hemoglobin of 6.7. She also had a supratherapeutic INR of 4.9. Patient was discharged from the floor today. She admits to some shortness of breath prior to discharge but states it became worse after when she got home. She received fluid hydration, 2 units of FFP, 5 mg of vitamin K, and 5 units of PRBCs. She had an EGD with Dr. Mendez which noted oozing gastric ulcers which were cauterized as well as a friable gastric mucosa. She was given a PPI IV as well as Carafate. Patient states she was given 20 mg of Lasix prior to discharge this morning. Per EMS, oxygen saturation 80s on room air and increased to 90s on BiPAP. O2 sat 100% on BiPAP in room. She is hypertensive at 169/87. Heart rate 90s. Respiratory rate 30s. Afebrile. Patient is awake and alert, speaking in broken sentences and admitting to shortness of breath. She has diminished breath sounds throughout. She has 1+ pitting edema in her bilateral lower extremities. Suspect possible fluid overload due to large amount of blood as well as fluids on recent admission. She had an echo done today which is now resulted and noted an EF of 60-65%. Differential diagnosis includes acute CHF, FL, PE, pneumonia, dissection. Will continue bipap, IV, cardiac workup including d-dimer, BNP, ABG, portable chest x -ray, DuoNeb, and 40 mg Lasix IV. 1500 --EKG notes a rate of 89, sinus, no acute ST elevation or depression. QTc 465. QRS 108. 1510 --case discussed with live in caregiver Ninoska who d/w Dr. Chow. He will come down to evaluate patient. 1530 --patient states she feels better. She is now speaking in full sentences on BiPAP. She states when she came home today and was walking around the house , she became significantly short of breath. 1540 --labs and imaging reviewed. No significant change compared to labs prior to discharge. White blood cell count 14. Hemoglobin 8.9. Potassium 5.8 - was 5.5 prior to dc today. CO2 20.5. Creatinine 1.75. GFR 29. Troponin negative. D-dimer ordered on arrival and likely not appropriate for order. Patient has been off Coumadin, and had a GI bleed so would expect elevation. D- dimer 1712. Chest x-ray notes fluid consolidation in bases bilaterally. 1600 --D/w Dr. Chow - will admit patient for diuresis. HPI General Mode of arrival: EMS . Date/Time Provider Initiated Documentation: 05/10/18 14:53 . Limitations to Documentation: other (short of breath, on bipap) . Information obtained by: patient and EMS . HPI Narrative: Patient is a 72-year-old female with a history of diabetes, hypertension, CHF, atrial fibrillation on Coumadin who presents to the ED w/ a c /o shortness of breath today. Patient was admitted here for melanotic stools found to be due to gastric ulcers and had received blood and IV fluids and was discharged today. Patient states she felt short of breath prior to discharge but became worse after she left. Patient denies fever, cough or chest pain. Patient states she received 10 mg of Lasix IV this morning. Past medical history: CHF, aortic stenosis, PUD, osteoarthritis, obstructive sleep apnea, hypothyroidism, hyperlipidemia, hypertension, diabetes, GERD Surgical history: Appendectomy, right total knee replacement, hysterectomy Social history: Meds: See list Allergies: Aspirin, penicillins, Tetracycline, adhesive Related Data Home Medications Medication Instructions Recorded Confirmed albuterol sulfate HFA 90 2 puff IH QID PRN 04/17/18 05/07/18 mcg/actuation aerosol inhaler blood sugar diagnostic strips #20 each 04/17/18 04/17/18 blood sugar diagnostic strips #20 each 04/17/18 04/25/18 dofetilide 500 mcg capsule 500 mcg PO Q12H 04/17/18 05/07/18 levothyroxine 25 mcg capsule 25 mcg PO DAILY 04/17/18 05/10/18 magnesium 64 mg (magnesium 64 mg PO BID tab 04/17/18 05/10/18 chloride) tablet,delayed release metformin 500 mg tablet 500 mg PO BID 04/17/18 05/10/18 metoprolol succinate ER 100 mg 100 mg PO DAILY 04/17/18 05/10/18 tablet,extended release 24 hr simvastatin 10 mg tablet 10 mg PO QPM 04/17/18 05/10/18 furosemide 10 mg PO BID 05/10/18 05/10/18 pantoprazole 40 mg PO BID@0730,1999 #120 tab 05/10/18 05/10/18 sucralfate 1 g PO Q6H #120 tab 05/10/18 05/10/18 Previous Rx's Medication Instructions Recorded pantoprazole 40 mg PO BID@0730,1999 #120 tab 05/10/18 sucralfate 1 g PO Q6H #120 tab 05/10/18 Allergies Allergy/AdvReac Type Severity Reaction Status Date / Time aspirin Allergy Hives Unverified 05/10/18 15:53 Penicillins Allergy Unverified 05/10/18 15:53 tetracycline Allergy Unverified 05/10/18 15:53 adhesive AdvReac Intermediate Topical Unverified 05/10/18 15:53 Irritation General Stated Complaint: RespSymp BROOKE: 2 Review of Systems Review of Systems All systems reviewed & are unremarkable except as noted in HPI and below PFSH Family History Mother Thoracic aneurysm, ruptured Personal history of malignant neoplasm Father Heart disease Myocardial infarction Cerebrovascular accident Grandfather Heart disease Cerebrovascular accident Grandfather Heart disease Grandmother Heart disease Grandmother Personal history of malignant neoplasm Medical History Hyperkalemia (Acute) GI bleeding (Acute) Diverticulitis (Chronic) Diabetes type 2, controlled (Chronic) Hypothyroid (Chronic) Atrial fibrillation (Chronic) Aortic stenosis, moderate (Chronic) Social History household members: other details: 5 current occupational status: employed 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 duration: 45-60 minutes/day Smoking/Tobacco Use Status: Former Tobacco Use how long ago did patient quit smokin alcohol intake: never Surgical History History of appendectomy (Chronic) H/O hysterectomy for benign disease (Chronic) Replacement of total knee joint (~12/2007) Sigmoidoscopy (~08/2009) Abdominal hysterectomy Bilateral salpingectomy with oophorectomy Appendectomy Recurrent major depression in partial remission (~10/2012) Exam Const General: cooperative and acute distress (mild-moderate) respiratory Orientation: alert and awake HENMT Head: normal to inspection Ears: hearing grossly normal bilaterally and external ears normal General nose exam: external nose normal Face and sinus: normal facial exam Eyes General: appearance normal, both eyes and all related structures Eyelids: eyelids normal EOM: EOM intact bilaterally Neck Neck: normal visual inspection Lymphatic: no lymphadenopathy noted Chest Chest: normal inspection of the chest Resp Effort & Inspection: not able to speak in complete sentences Auscultation: diminished lung sounds, no rales, no rhonchi and no wheezes Cardio Rate: regular rate Rhythm: regular rhythm GI Inspection: normal to inspection Palpation: soft, not firm, no guarding, no hepatosplenomegaly, no masses and nontender Auscultation: normal bowel sounds Skin General skin exam: no rashes or lesions noted Neuro General: alert and awake Cognition: normal cognition Speech: speech normal Motor: muscle tone normal throughout Extrem General: normal capillary refill and edema (1+ bilateral lower extremities) Psych Appearance: grossly normal Mental Status: mental status grossly normal Affect: normal affect Thought Process: normal Course Vital Signs Temperature 98.8 F 05/10/18 14:51 Pulse 97 H 05/10/18 14:51 Respiratory Rate 32 H 05/10/18 14:51 Blood Pressure 169/87 H 05/10/18 14:51 Pulse Oximetry 97 05/10/18 14:51 Temperature 98.8 F 05/10/18 14:51 Temperature Source Temporal Artery Scan 05/10/18 14:51 Pulse 97 H 05/10/18 14:51 Respiratory Rate 32 H 05/10/18 14:51 Blood Pressure 169/87 H 05/10/18 14:51 Blood Pressure Position Sitting 05/10/18 14:51 Pulse Oximetry 97 05/10/18 14:51 Oxygen Delivery Method Cpap 05/10/18 14:51
[2018-05-10] MEDS: Furosemide 40 MG/4 ML VIAL IVP ×2 (15:02→21:19)
[2018-05-10] MEDS: Albuterol/Ipratropium 3 ML UPD VIAL UPD (15:03)
[2018-05-10 15:11] LABS: Abs Immature Grans 0.11 k/cumm (0.0-0.09); Absolute Eosinophil Count 0.22 k/cumm (0.0-0.7); Basophils % 0.1; Eosinophils % 1.5; HCT 28.8 % (36.0-46.0); HGB 8.9 g/dL (12.0-15.5); Immature Grans % 0.7; Lymphocytes % 7.9; Mean Corp. HGB Concentration 30.9 g/dL (32.0-36.0); Mean Corpuscular Hemoglobin 28.1 pg (27.0-33.0); Mean Corpuscular Volume 90.9 fL (80-95); Mean Platelet Volume 8.9 fL (8.0-11.0); Monocytes % 7.3; Neutrophils % 82.5; Platelet Count 376 x1000/uL (130-400); RBC 3.17 m/cumm (4.00-5.20); RBC Distribution Width 16.7 % (11.7-14.6); White Blood Cell Count 14.72 k/cumm (4.4-10.8)
[2018-05-10 15:12] LABS: Absolute Basophil Count 0.01 k/cumm (0.0-0.2); Absolute Lymphocyte Count 1.16 k/cumm (1.2-3.4); Absolute Monocyte Count 1.07 k/cumm (0.11-0.7); Absolute Neutrophil Count 12.14 k/cumm (1.2-6.7)
[2018-05-10 15:19] LABS: HCO3 20 mmol/L (22-28); pCO2 42 mmHg (34-47); pH 7.28 (7.35-7.45); pO2 252 mmHg (83-108)
[2018-05-10 15:22] LABS: Site Right Radial
[2018-05-10 15:23] LABS: FIO2 50 %; FIO2L NIV L
[2018-05-10 15:26] LABS: sO2 > 99 % (94-98)
[2018-05-10 15:30] LABS: INR 1.8 (1.0-3.5); PTT Activated 26.8 sec (21.0-31.4); Prothrombin Time 17.6 sec (9.3-10.8)
[2018-05-10 15:37] LABS: Bilirubin Negative (Negative); Blood Trace-intact (Negative); Clarity Clear; Glucose Negative (Negative); Ketones Negative (Negative); Leukocyte Esterase Negative (Negative); Nitrite Negative (Negative); Urobilinogen 0.2 EU/dL (Up TO 0.2); pH 5.5 (5-8)
[2018-05-10 15:38] LABS: ALT 36 U/L (12-78); AST 33 U/L (15-37); Alkaline Phosphatase 65 U/L (46-116); Anion Gap 10.5 mmol/L (3-11); BUN 46 mg/dL (7-18); Bilirubin, Direct 0.09 mg/dL (0.00-0.20); Bilirubin, Total 0.4 mg/dL (0.2-1.0); CO2 20.5 mmol/L (21.0-32.0); CREATININE 1.73 mg/dL (0.55-1.02); Chloride 111 mmol/L (98-107); Estimated GFR 29.04 (mL/min/1.73m2); Glucose 152 mg/dL (70-100); Lipase 229 U/L (73-393); Magnesium 2.2 mg/dL (1.8-2.4); NT-proBNP 1112 pg/mL; Potassium 5.8 mmol/L (3.5-5.1); Sodium 142 mmol/L (136-145); Total Protein 7.8 g/dL (6.4-8.2); Troponin I < 0.02 ng/mL (0.00-0.06)
[2018-05-10 15:52] LABS: D-Dimer 1712 ng/mlFEU (<500)
[2018-05-10 15:57] LABS: RBC 0-2 (0-2); WBC Negative HPF (0-5)
[2018-05-10 15:58] LABS: Bacteria Rare HPF (Negative); C & S Indicated? No; Casts Negative LPF (Negative); Crystals Negative HPF (Negative); Epithelial Cells Negative HPF (Negative); Mucus Negative (Negative); Other Cells Negative (Negative)
--- NOTE | 2018-05-10 16:42 | HPE_ITS ---
Date of service: 05/10/18 Time of Service: 16:44 Assessment and Plan (1) Diastolic congestive heart failure: Current visit: Yes Status: Chronic Acute re-presentation with history, exam and x-ray compatible with pulmonary edema/CHF echocardiogram today does not show LV impairment but does have evidence of diastolic dysfunction. No RV strain to suggest pulmonary embolism, INR is still a little elevated from prior anticoagulation. ECG and initial troponin do not suggest an acute coronary syndrome. Etiology is not clear but I suspect this was developing from fluid overload and unrecognized/ not clinically apparent at the time of her discharge earlier today. She did not have any recurrence of A. fib while she was monitored in the hospital and does not have A. fib on monitor now thus I think it is unlikely that tachyarrhythmia resulted in her decompensation. At this point my working diagnosis is fluid overload from her fluid resuscitation and blood products and treatment of her GI bleed but I cannot explain why the delay in presentation. From a diagnostic standpoint will monitor rhythm, cycle troponins. Therapeutically another dose of IV Lasix later this evening and again tomorrow and then perhaps convert back to oral Lasix at a higher dose than she was taking at home. Continue her home CPAP unit, with or without oxygen depending upon SaO2. (2) Peptic ulcer disease with hemorrhage: Current visit: Yes Status: Acute Hemoglobin remained stable. We will continue to follow. Continue Carafate and PPI. (3) Obstructive sleep apnea syndrome: Current visit: Yes Status: Acute Continue home CPAP unit. (4) Diabetes mellitus: Current visit: Yes Status: Acute Given slight worsening of renal function and prior reasonable blood sugars on no medication, metformin temporarily on hold. Will cover with short acting insulin as needed (5) Atrial fibrillation: Current visit: Yes Status: Acute Monitor rhythm, continue dofetilide and metoprolol. Warfarin remains on hold because of GI bleed. (6) Osteoarthritis: Current visit: Yes Status: Acute Acetaminophen for neck pain as needed as well as physical measures. (7) CKD (chronic kidney disease): Current visit: Yes Status: Chronic Close to baseline. Follow with efforts at diuresis. (8) Hyperkalemia: Current visit: Yes Status: Acute Probably due to her chronic kidney disease and GI blood. At this point does not need specific intervention such as Kayexalate. Follow labs. (9) Anemia due to gastrointestinal blood loss: Current visit: Yes Status: Acute Hemoglobin has not gone down, probably contributing some to her exertional dyspnea. I expect this will slowly improve provided she does not have recurrent GI bleed. History of Present Illness Chief Complaint: Shortness of breath Narrative: 72-year-old woman who was just discharged a few hours prior to her re -presentation to the emergency room after hospitalization for GI bleed secondary to multiple gastric ulcers induced by NSAID use. Prior to her discharge she had been complaining a little bit of shortness of breath but had a reassuring exam and SaO2 on room air in the mid 90% range. She was able to independently ambulate within her hospital room with mild shortness of breath only. She did receive several units of blood products and IV fluids during her hospitalization, and her chronic low-dose furosemide have been on hold until this morning when it was restarted at 20 mg. Her KEELEY inhibitor was held because of hyperkalemia and worsening renal function. She had an echocardiogram prior to discharge which reading has come back showing preserved LV function, Doppler findings compatible with diastolic dysfunction and high filling pressures and little if any change in her moderate aortic stenosis. She had normal RV function with mild dilatation of the right atrium and a patent foramen ovale with left to right small shunt, pulmonary artery pressure was estimated at 68 mm. Upon arrival home, within less than 2 hours was noticing increasing shortness of breath. She had no chest pain palpitations productive cough. She had a small bowel movement at home, still dark but not grossly bloody. She had increasing respiratory distress prompting return to the emergency room. In the emergency room she was in respiratory distress speaking in phrases only. She had BiPAP applied and was given 40 mg of IV Lasix with a good diuretic response and marked improvement in her subjective respiratory status. Her EKG did not have any acute ischemic changes, her initial troponin is below level of detection. Her BNP is somewhat elevated. Her hemoglobin is higher than it was this morning. Her BUN and creatinine are a little bit higher than this morning but close to her baseline. Her d-dimer is uninterpretable in the setting of an acute bleeding event. Her INR is still somewhat elevated at 1.8 despite withholding warfarin since her prior admission. She is being admitted now with exacerbation of heart failure attributed to fluid resuscitation for her GI bleed. Review of Systems Review of Systems Much more comfortable now on BiPAP and after Lasix. No headache. No cough. No chest pain or palpitations. No stomach upset or abdominal pain. No diarrhea. No blood in urine. Neck pain about the same as it was earlier this morning mild. No focal weakness or paresthesias. No dysuria. No incontinence. PFSH Family History Mother Thoracic aneurysm, ruptured Personal history of malignant neoplasm Father Heart disease Myocardial infarction Cerebrovascular accident Grandfather Heart disease Cerebrovascular accident Grandfather Heart disease Grandmother Heart disease Grandmother Personal history of malignant neoplasm Medical History Hyperkalemia (Acute) GI bleeding (Acute) Diverticulitis (Chronic) Diabetes type 2, controlled (Chronic) Hypothyroid (Chronic) Atrial fibrillation (Chronic) Aortic stenosis, moderate (Chronic) Social History household members: other details: 5 current occupational status: employed 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-2 times per week duration: 45-60 minutes/day Smoking/Tobacco Use Status: Former Tobacco Use how long ago did patient quit smokin alcohol intake: never Surgical History History of appendectomy (Chronic) H/O hysterectomy for benign disease (Chronic) Replacement of total knee joint (~12/2007) Sigmoidoscopy (~08/2009) Abdominal hysterectomy Bilateral salpingectomy with oophorectomy Appendectomy Recurrent major depression in partial remission (~10/2012) Meds Home Medications Medication Instructions Recorded Confirmed Type albuterol sulfate HFA 90 2 puff IH QID PRN 04/17/18 05/07/18 History mcg/actuation aerosol inhaler blood sugar diagnostic strips #20 each 04/17/18 04/17/18 History blood sugar diagnostic strips #20 each 04/17/18 04/25/18 History dofetilide 500 mcg capsule 500 mcg PO Q12H 04/17/18 05/07/18 History levothyroxine 25 mcg capsule 25 mcg PO DAILY 04/17/18 05/10/18 History magnesium 64 mg (magnesium 64 mg PO BID tab 04/17/18 05/10/18 History chloride) tablet,delayed release metformin 500 mg tablet 500 mg PO BID 04/17/18 05/10/18 History metoprolol succinate ER 100 mg 100 mg PO DAILY 04/17/18 05/10/18 History tablet,extended release 24 hr simvastatin 10 mg tablet 10 mg PO QPM 04/17/18 05/10/18 History furosemide 10 mg PO BID 05/10/18 05/10/18 History pantoprazole 40 mg PO BID@0730,2000 #120 tab 05/10/18 05/10/18 Rx sucralfate 1 g PO Q6H #120 tab 05/10/18 05/10/18 Rx Allergies Allergy/AdvReac Type Severity Reaction Status Date / Time aspirin Allergy Hives Unverified 05/10/18 15:53 Penicillins Allergy Unverified 05/10/18 15:53 tetracycline Allergy Unverified 05/10/18 15:53 adhesive AdvReac Intermediate Topical Unverified 05/10/18 15:53 Irritation Exam Narrative Exam Narrative: Comfortable with BiPAP, SaO2 99%, sinus rhythm on monitor. She can speak in full sentences. No facial asymmetry. Cannot see neck veins because of her neck size. Lungs have crackles at both bases which were not present this morning, no wheeze. Heart rhythm remains regular no S3 or S4 or murmur heard. Abdomen obese bowel sounds present but diminished. Abdomen soft , nontender. Trace to 1+ ankle edema bilaterally. She has antigravity power throughout. She requires a little bit of assistance to sit up. She is awake and alert and able to provide history. Results Labs : 05/10/18 15:00 05/10/18 15:15 Laboratory Results - last 24 hr 05/10/18 05/10/18 05/10/18 15:00 15:00 15:00 WBC 14.72 H RBC 3.17 L Hgb 8.9 L Hct 28.8 L MCV 90.9 MCH 28.1 MCHC 30.9 L RDW 16.7 H Plt Count 376 MPV 8.9 Immature Gran % 0.7 Neutrophils % 82.5 Lymphocytes % 7.9 Monocytes % 7.3 Eosinophils % 1.5 Basophils % 0.1 Absolute Neutrophils 12.14 H Absolute Lymphocytes 1.16 L Absolute Monocytes 1.07 H Absolute Eosinophils 0.22 Absolute Basophils 0.01 PT 17.6 H INR 1.8 APTT 26.8 D-Dimer 1712 H Sample Site pCO2 pO2 O2 Saturation ABG pH ABG HCO3 ABG Total CO2 ABG Base Excess Oxygen Liter Flow FiO2 Sodium Potassium Chloride Carbon Dioxide Anion Gap BUN Creatinine Estimated GFR/1.73 m2 Glucose Calcium Magnesium Total Bilirubin Conjugated Bilirubin AST ALT Alkaline Phosphatase Troponin I NT-Pro-B Natriuret Pep Total Protein Albumin Lipase Urine Color Urine Clarity Urine pH Ur Specific [place] Urine Protein Urine Ketones Urine Blood Urine Nitrite Urine Bilirubin Urine Urobilinogen Ur Leukocyte Esterase Urine RBC Urine WBC Ur Epithelial Cells Urine Crystals Urine Bacteria Urine Casts Urine Mucus Urine Other Ur Culture Indicated? Urine Glucose 05/10/18 05/10/18 05/10/18 15:15 15:15 15:20 WBC RBC Hgb Hct MCV MCH MCHC RDW Plt Count MPV Immature Gran % Neutrophils % Lymphocytes % Monocytes % Eosinophils % Basophils % Absolute Neutrophils Absolute Lymphocytes Absolute Monocytes Absolute Eosinophils Absolute Basophils PT INR APTT D-Dimer Sample Site Right radial pCO2 42 pO2 252 H O2 Saturation > 99 H ABG pH 7.28 L ABG HCO3 20 L ABG Total CO2 ABG Base Excess Oxygen Liter Flow Niv FiO2 50 Sodium 142 Potassium 5.8 H Chloride 111 H Carbon Dioxide 20.5 L Anion Gap 10.5 BUN 46 H Creatinine 1.73 H Estimated GFR/1.73 m2 29.04 Glucose 152 H Calcium 9.0 Magnesium 2.2 Total Bilirubin 0.4 Conjugated Bilirubin 0.09 AST 33 ALT 36 Alkaline Phosphatase 65 Troponin I < 0.02 NT-Pro-B Natriuret Pep 1112 H Total Protein 7.8 Albumin 3.0 L Lipase 229 Urine Color Yellow Urine Clarity Clear Urine pH 5.5 Ur Specific [place] 1.010 Urine Protein Negative Urine Ketones Negative Urine Blood Trace-intact H Urine Nitrite Negative Urine Bilirubin Negative Urine Urobilinogen 0.2 Ur Leukocyte Esterase Negative Urine RBC 0-2 Urine WBC Negative Ur Epithelial Cells Negative Urine Crystals Negative Urine Bacteria Rare Urine Casts Negative Urine Mucus Negative Urine Other Negative Ur Culture Indicated? No Urine Glucose Negative
[2018-05-10] MEDS: Sucralfate 1 GM TAB PO ×2 (17:26→22:35)
[2018-05-10] MEDS: Dofetilide 250 MCG CAP 500 MCG PO (18:51)
[2018-05-10 20:20] LABS: Troponin I < 0.02 ng/mL (0.00-0.06)
[2018-05-10] MEDS: Normal Saline Flush 10 ML SYR IVP (21:19)
[2018-05-10] MEDS: Pantoprazole 40 MG TABCR PO (21:20)
[2018-05-10] MEDS: Magnesium Chloride 64 MG TABCR PO (21:20)
[2018-05-10] MEDS: Simvastatin 10 MG TAB PO (21:20)
[2018-05-11] VITALS (14 sets, daily range): BP systolic 104–133; BP diastolic 51–69; PULSE 62–89; RESP 18–120; TEMP 36.8–38.7; O2SAT 87–93
[2018-05-11 00:16] LABS: Troponin I < 0.02 ng/mL (0.00-0.06)
[2018-05-11] MEDS: Sucralfate 1 GM TAB PO ×3 (04:31→22:34)
[2018-05-11] MEDS: Levothyroxine 25 MCG TAB PO (06:24)
[2018-05-11] MEDS: Dofetilide 250 MCG CAP 500 MCG PO ×2 (06:25→17:57)
[2018-05-11 07:06] LABS: HCT 24.3 % (36.0-46.0); Mean Corp. HGB Concentration 30.9 g/dL (32.0-36.0); Mean Corpuscular Hemoglobin 28.1 pg (27.0-33.0); Mean Platelet Volume 8.9 fL (8.0-11.0); Platelet Count 364 x1000/uL (130-400); RBC 2.67 m/cumm (4.00-5.20); RBC Distribution Width 16.4 % (11.7-14.6); White Blood Cell Count 11.59 k/cumm (4.4-10.8)
[2018-05-11 07:09] LABS: Anion Gap 10.6 mmol/L (3-11); BUN 37 mg/dL (7-18); CO2 22.4 mmol/L (21.0-32.0); CREATININE 1.54 mg/dL (0.55-1.02); Calcium 8.8 mg/dL (8.5-10.1); Chloride 108 mmol/L (98-107); Estimated GFR 33.21 (mL/min/1.73m2); Glucose 100 mg/dL (70-100); Potassium 4.6 mmol/L (3.5-5.1); Sodium 141 mmol/L (136-145)
[2018-05-11 07:11] LABS: HGB 7.5 g/dL (12.0-15.5)
[2018-05-11] MEDS: Furosemide 40 MG/4 ML VIAL IVP ×2 (09:05→20:07)
[2018-05-11] MEDS: Normal Saline Flush 10 ML SYR IVP ×2 (09:06→20:07)
[2018-05-11] MEDS: Magnesium Chloride 64 MG TABCR PO ×2 (09:06→20:05)
[2018-05-11] MEDS: Metoprolol CR 100 MG TABCR PO (09:06)
[2018-05-11] MEDS: Pantoprazole 40 MG TABCR PO ×2 (09:06→20:06)
--- NOTE | 2018-05-11 09:43 | PHARADMIT ---
Addendum entered by Eleuterio Jiménez III 05/17/18 16:17: Plan is for discharge today. VS-OK Lytes, H&H,PLts-OK SCr-1.80(up) BM last two days. Original Note: Addendum entered by Astrid Rick 05/16/18 16:20: Pharmacy Note Subjective continues to have foot pain; podiatry consult ordered Objective VS-okay SCr-1.49(down) plt-222(up) h/h-7.6/24.3(down) wbc-12.67(down) Assessment no med changes so far today new urine culture pending Plan continue to watch VS labs and for med changes Original Note: Addendum entered by Astrid Rick 05/15/18 16:08: Pharmacy Note Subjective feet hurt too much to stand per morning report Objective Tmax-37.9 overnight; BP has been up and down weight-119.7(down) plt-613(up) Assessment family requested colchicine be tried, so was started yesterday no med changes so far today Plan continue to watch vS labs and for med changes Original Note: Addendum entered by Eleuterio Jiménez III 05/14/18 14:40: Pharmacy Note Subjective Swell in both feet. does not think this gout. Objective VS-OK pain:6/10 Lytes-OK SCr-1.77 H&H-7.9/25.3 Plts-533 WBC-13.31 BM yesterday Assessment Continue Lasix Plan Watch Plts. Patient would like to go home , if pain can be managed in her legs. Original Note: Addendum entered by Eleuterio Jiménez III 05/13/18 12:21: Pharmacy Note Subjective Patients foot pain/gout is limiting her mobility, PT has evaluated and recommends PT intervention. Objective VS-OK Lytes,H&H,Plts- OK SCr-1.78 (up) FSBS-166 Large Heme (+) BM yesterday Assessment On Prednisone & Allopurinol for gout. urine cukture: No Growth/24hrs... Plan Plan for possible SNF stay as she can not walk at this time. Original Note: Addendum entered by Eleuterio Jiménez III 05/12/18 15:34: Pharmacy Note Subjective Patient complaining of new foot pain, MD suspects gout, Allopurinol/Prednisone ordered. WBC up, order urine cullture Objective VS-OK Temp-37.8C WBC-15.99 H&H-7.4/24.1 FSBS- 171 Plan Patients diabetes may be compromised with Prednisone addition. Watch urine culture. Original Note: Addendum entered by Eleuterio Jiménez III 05/11/18 10:38: VS-OK K+4.6 SCr-1.54 H&H-7.5/24.3 wbc-11.53 Fluid overloaded on Lasix, watch weights, Wgt-121.7kg Original Note: Admission Pharmacy Clinical Review CHF DIASTOLIC BP, RECENT GI BLEED Patient is recent bounce back from yesterday, below is the previous pharmacy clinical intervention: TYRA MUÑOZN Mateus Female : 1945 Emr# [id number] 05/08/18 12:02 - Pharmacy Review by Eleuterio Jiménez III Acct Num: [id number] : 1945 Patient Age: 72 Admission Pharmacy Clinical Review ANEMIA Code Status Full Code Current Weight Wgt- 120 kg Renally Cleared and Narrow Therapeutic Index Meds CrCl~ 15.7 mL/min Meds-OK QTc Value / Action Taken na BP Control, Fever BP- 128/62 Tmax- 36.6C Electrolytes reviewed Na- 138 K+5.5 Mag-.4 DVT Prophylaxis No High INR Low H&H Opiate Usage / Scheduled Bowel Regimen Ordered No Yes Plt/SCr for Heparin / Enoxaparin Plts-435 SCr-2.36 INR for Warfarin INR-4.3 Got Vit-K H/H stable, WBC/Bands H&H-5.7/18.7 WBC- 11.57 Antibiotic appropriateness none Cultures and Sensitivities none Surgical ABX d/c within 24 hr NA DM control / Insulin Dosing BG-111 Aspart, Heart Failure (Check EF%) (KEELEY's, B-Block, Diuretics) Tikosyn, Lasix, Toprol-XL, IV to PO Switch No Home Meds Reviewed Yes Home Meds Not Ordered Warfarin, Lisinopril, MadChloride, Metformin, Comments Patient Own Dofetilide
[2018-05-11] MEDS: Acetaminophen 325 MG TAB PO ×4 (10:24→22:34)
[2018-05-11 13:06] LABS: HCT 24.8 % (36.0-46.0); HGB 7.6 g/dL (12.0-15.5)
--- NOTE | 2018-05-11 13:16 | W.PM.PROGNOT ---
Assessment and Plan (1) Diastolic congestive heart failure: Current visit: Yes Status: Chronic Diuresing well, subjectively feeling a bit better. I am continuing IV Lasix through today and likely transition back to oral Lasix at higher than outpatient dose tomorrow. (2) Anemia due to gastrointestinal blood loss: Current visit: Yes Status: Acute Discouraging that hemoglobin has dropped but has stabilized. Contributing to her shortness of breath. Recheck hemoglobin and hematocrit tomorrow. (3) Aortic stenosis: Current visit: No Status: Chronic I do not think this is playing a role in her current presentation. (4) Atrial fibrillation: Current visit: No Status: Chronic Remains in sinus rhythm on telemetry. Anticoagulation on hold because of GI bleed. Continue dofetilide. (5) CKD (chronic kidney disease): Current visit: Yes Status: Chronic Continued improvement in her BUN and creatinine. Hopefully with continued diuresis this trend will also continue. Recheck tomorrow. (6) Diabetes mellitus: Current visit: No Status: Chronic Blood sugars acceptable on no meds at this time. With improvement in renal function, likely can resume metformin soon. (7) Hypertension: Current visit: No Status: Chronic Blood pressure is acceptable on metoprolol and IV furosemide. Subjective Interval history since last seen: Breathing is feeling better. She has had about a 250 cc diuresis overnight after the 240 mg IV Lasix doses. Oxygen saturations have been stable. Telemetry has shown sinus rhythm only. Denies chest pain stomach upset abdominal pain. Has not had a bowel movement since admission. No orthostatic lightheadedness when she sits up. Spirits are holding in there although a little discouraged regarding continued hospitalization. Exam Narrative Exam Narrative: Seated upright she is in no acute distress. SaO2 92-93% on 2 L nasal cannula. Cannot see neck veins because of her neck size. Lungs with only rare crackles now in the lower lung burrell clear in the upper lung burrell no rub no wheeze. Heart tones regular no S3 or S4, 2/6 systolic ejection murmur right upper sternal border without diastolic murmur. Abdomen obese with active bowel sounds and no tenderness. Trace to 1+ edema in her ankles. Objective Objective Clinical Data: Abnormal lab results 05/10/18 05/10/18 05/10/18 Range/Units 15:00 15:00 15:00 WBC 14.72 H (4.4-10.8) k/cumm RBC 3.17 L (4.00-5.20) m/cumm Hgb 8.9 L (12.0-15.5) g/dL Hct 28.8 L (36.0-46.0) % MCHC 30.9 L (32.0-36.0) g/dL RDW 16.7 H (11.7-14.6) % Absolute Neutrophils 12.14 H (1.2-6.7) k/cumm Absolute Lymphocytes 1.16 L (1.2-3.4) k/cumm Absolute Monocytes 1.07 H (0.11-0.7) k/cumm PT 17.6 H (9.3-10.8) sec D-Dimer 1712 H (<500) ng/mlFEU pO2 (83-108) mmHg O2 Saturation (94-98) % ABG pH (7.35-7.45) ABG HCO3 (22-28) mmol/L Potassium (3.5-5.1) mmol/L Chloride (98-107) mmol/L Carbon Dioxide (21.0-32.0) mmol/L BUN (7-18) mg/dL Creatinine (0.55-1.02) mg/dL Glucose (70-100) mg/dL NT-Pro-B Natriuret Pep ( - 299) pg/mL Albumin (3.4-5.0) g/dL Urine Blood (Negative) 05/10/18 05/10/18 05/10/18 Range/Units 15:15 15:15 15:20 WBC (4.4-10.8) k/cumm RBC (4.00-5.20) m/cumm Hgb (12.0-15.5) g/dL Hct (36.0-46.0) % MCHC (32.0-36.0) g/dL RDW (11.7-14.6) % Absolute Neutrophils (1.2-6.7) k/cumm Absolute Lymphocytes (1.2-3.4) k/cumm Absolute Monocytes (0.11-0.7) k/cumm PT (9.3-10.8) sec D-Dimer (<500) ng/mlFEU pO2 252 H (83-108) mmHg O2 Saturation > 99 H (94-98) % ABG pH 7.28 L (7.35-7.45) ABG HCO3 20 L (22-28) mmol/L Potassium 5.8 H (3.5-5.1) mmol/L Chloride 111 H (98-107) mmol/L Carbon Dioxide 20.5 L (21.0-32.0) mmol/L BUN 46 H (7-18) mg/dL Creatinine 1.73 H (0.55-1.02) mg/dL Glucose 152 H (70-100) mg/dL NT-Pro-B Natriuret Pep 1112 H ( - 299) pg/mL Albumin 3.0 L (3.4-5.0) g/dL Urine Blood Trace-intact H (Negative) 05/11/18 05/11/18 05/11/18 Range/Units 06:42 06:42 13:00 WBC 11.59 H (4.4-10.8) k/cumm RBC 2.67 L (4.00-5.20) m/cumm Hgb 7.5 L 7.6 L (12.0-15.5) g/dL Hct 24.3 L 24.8 L (36.0-46.0) % MCHC 30.9 L (32.0-36.0) g/dL RDW 16.4 H (11.7-14.6) % Absolute Neutrophils (1.2-6.7) k/cumm Absolute Lymphocytes (1.2-3.4) k/cumm Absolute Monocytes (0.11-0.7) k/cumm PT (9.3-10.8) sec D-Dimer (<500) ng/mlFEU pO2 (83-108) mmHg O2 Saturation (94-98) % ABG pH (7.35-7.45) ABG HCO3 (22-28) mmol/L Potassium (3.5-5.1) mmol/L Chloride 108 H (98-107) mmol/L Carbon Dioxide (21.0-32.0) mmol/L BUN 37 H D (7-18) mg/dL Creatinine 1.54 H (0.55-1.02) mg/dL Glucose (70-100) mg/dL NT-Pro-B Natriuret Pep ( - 299) pg/mL Albumin (3.4-5.0) g/dL Urine Blood (Negative) Vital Signs Temperature 36.8 C 05/11/18 11:35 Temperature Source Tympanic 05/11/18 11:35 Pulse 84 05/11/18 11:35 Pulse Rhythm Regular 05/11/18 08:30 Pulse 69 05/10/18 16:50 Respiratory Rate 19 05/11/18 11:35 Respiratory Effort 05/11/18 08:30 Respiratory Depth Normal 05/11/18 08:30 Respiratory Pattern Normal 05/11/18 08:30 Blood Pressure 104/53 L 05/11/18 11:35 Blood Pressure Mean 67 05/10/18 16:47 Blood Pressure Position Sitting 05/10/18 14:51 Pulse Oximetry 92 L 05/11/18 11:35 Oxygen Delivery Method Nasal Cannula 05/11/18 11:35 Oxygen Flow Rate 2 05/11/18 11:35 Fraction of Inspired Oxygen (FIO2) 35 05/10/18 15:40 Pain Level 5 05/11/18 11:24 Comment 05/10/18 22:00 Intake & Output 05/10/18 05/11/18 05/11/18 23:59 11:59 23:59 Intake Total 720 / 720 1040 / 1040 Output Total 3200 / 3200 850 / 850 1275 / 1275 Balance -2480 / -2480 190 / 190 -1275 / -1275 Weight 133.8 kg 121.7 kg Intake: Oral 720 / 720 1040 / 1040 Output: Urine 3200 / 3200 850 / 850 1275 / 1275 Other: Urine Color Pale Yellow Pale Yellow Yellow Urine Appearance Clear Clear Clear Urine Odor None Voiding Methods Indwelling Catheter Laboratory Results WBC 11.59 k/cumm (4.4-10.8) H 05/11/18 06:42 RBC 2.67 m/cumm (4.00-5.20) L 05/11/18 06:42 Hgb 7.6 g/dL (12.0-15.5) L 05/11/18 13:00 Hct 24.8 % (36.0-46.0) L 05/11/18 13:00 MCV 91.0 fL (80-95) 05/11/18 06:42 MCH 28.1 pg (27.0-33.0) 05/11/18 06:42 MCHC 30.9 g/dL (32.0-36.0) L 05/11/18 06:42 RDW 16.4 % (11.7-14.6) H 10 06:42 Plt Count 364 x1000/uL (130-400) 05/11/18 06:42 MPV 8.9 fL (8.0-11.0) 05/11/18 06:42 Immature Gran % 0.7 05/10/18 15:00 Neutrophils % 82.5 05/10/18 15:00 Lymphocytes % 7.9 05/10/18 15:00 Monocytes % 7.3 05/10/18 15:00 Eosinophils % 1.5 05/10/18 15:00 Basophils % 0.1 05/10/18 15:00 Absolute Neutrophils 12.14 k/cumm (1.2-6.7) H 05/10/18 15:00 Absolute Lymphocytes 1.16 k/cumm (1.2-3.4) L 05/10/18 15:00 Absolute Monocytes 1.07 k/cumm (0.11-0.7) H 05/10/18 15:00 Absolute Eosinophils 0.22 k/cumm (0.0-0.7) 05/10/18 15:00 Absolute Basophils 0.01 k/cumm (0.0-0.2) 05/10/18 15:00 PT 17.6 sec (9.3-10.8) H 05/10/18 15:00 INR 1.8 (1.0-3.5) 05/10/18 15:00 APTT 26.8 sec (21.0-31.4) 05/10/18 15:00 D-Dimer 1712 ng/mlFEU (<500) H 05/10/18 15:00 Sample Site Right radial 05/10/18 15:15 pCO2 42 mmHg (34-47) 05/10/18 15:15 pO2 252 mmHg (83-108) H 05/10/18 15:15 O2 Saturation > 99 % (94-98) H 05/10/18 15:15 ABG pH 7.28 (7.35-7.45) L 05/10/18 15:15 ABG HCO3 20 mmol/L (22-28) L 05/10/18 15:15 ABG Total CO2 mmol/L (22-29) 05/10/18 15:15 ABG Base Excess mmol/L (-3-3) 05/10/18 15:15 Oxygen Liter Flow Niv L 05/10/18 15:15 FiO2 50 % 05/10/18 15:15 Sodium 141 mmol/L (136-145) 05/11/18 06:42 Potassium 4.6 mmol/L (3.5-5.1) D 05/11/18 06:42 Chloride 108 mmol/L (98-107) H 05/11/18 06:42 Carbon Dioxide 22.4 mmol/L (21.0-32.0) 05/11/18 06:42 Anion Gap 10.6 mmol/L (3-11) 05/11/18 06:42 BUN 37 mg/dL (7-18) H D 05/11/18 06:42 Creatinine 1.54 mg/dL (0.55-1.02) H 05/11/18 06:42 Estimated GFR/1.73 m2 33.21 (mL/min/1.73m2) 05/11/18 06:42 Glucose 100 mg/dL (70-100) D 05/11/18 06:42 Calcium 8.8 mg/dL (8.5-10.1) 05/11/18 06:42 Magnesium 2.2 mg/dL (1.8-2.4) 05/10/18 15:15 Total Bilirubin 0.4 mg/dL (0.2-1.0) 05/10/18 15:15 Conjugated Bilirubin 0.09 mg/dL (0.00-0.20) 05/10/18 15:15 AST 33 U/L (15-37) 05/10/18 15:15 ALT 36 U/L (12-78) 05/10/18 15:15 Alkaline Phosphatase 65 U/L (46-116) 05/10/18 15:15 Troponin I < 0.02 ng/mL (0.00-0.06) 05/10/18 23:47 NT-Pro-B Natriuret Pep 1112 pg/mL (-299) H 05/10/18 15:15 Total Protein 7.8 g/dL (6.4-8.2) 05/10/18 15:15 Albumin 3.0 g/dL (3.4-5.0) L 05/10/18 15:15 Lipase 229 U/L (73-393) 05/10/18 15:15 Urine Color Yellow (Yellow) 05/10/18 15:20 Urine Clarity Clear 05/10/18 15:20 Urine pH 5.5 (5-8) 05/10/18 15:20 Ur Specific [place] 1.010 (1.005-1.025) 05/10/18 15:20 Urine Protein Negative mg/dL (Negative) 05/10/18 15:20 Urine Ketones Negative mg/dL (Negative) 05/10/18 15:20 Urine Blood Trace-intact (Negative) H 05/10/18 15:20 Urine Nitrite Negative (Negative) 05/10/18 15:20 Urine Bilirubin Negative (Negative) 05/10/18 15:20 Urine Urobilinogen 0.2 EU/dL (Up TO 0.2) 05/10/18 15:20 Ur Leukocyte Esterase Negative (Negative) 05/10/18 15:20 Urine RBC 0-2 (0-2) 05/10/18 15:20 Urine WBC Negative HPF (0-5) 05/10/18 15:20 Ur Epithelial Cells Negative HPF (Negative) 05/10/18 15:20 Urine Crystals Negative HPF (Negative) 05/10/18 15:20 Urine Bacteria Rare HPF (Negative) 05/10/18 15:20 Urine Casts Negative LPF (Negative) 05/10/18 15:20 Urine Mucus Negative (Negative) 05/10/18 15:20 Urine Other Negative (Negative) 05/10/18 15:20 Ur Culture Indicated? No 05/10/18 15:20 Urine Glucose Negative mg/dL (Negative) 05/10/18 15:20 Potassium has dropped to 4.6, BUN down to 37 creatinine down to 1.54. Hemoglobin this morning had dropped to 7.5 by mid day this is stable at 7.6.
--- NOTE | 2018-05-11 15:20 | DI.RAD_ITS ---
SYMPTOMS/DIAGNOSIS: PAIN, RIGHT LATERAL FOOT AND 5TH TOE RIGHT FOOT: Three views. Comparison examination is 10/06/17. There is again seen a moderate hallux valgus deformity. There is again seen a dislocation of the 2nd metatarsophalangeal joint, which is unchanged compared to 10/06/17. No acute fracture or dislocation is seen. Degenerative changes are seen at the 1st metatarsal joint and the tarsal joints, particularly the tarsometatarsal joints. There is a moderate size calcaneal spur. There is a hammertoe deformity of the 2nd toe. Vascular calcifications are present. There does appear to be soft tissue swelling of the ankle and foot. No radiopaque foreign bodies are identified. IMPRESSION: 1. No acute fracture or dislocation. 2. Chronic changes of the right foot, which appear stable.
--- NOTE | 2018-05-11 15:53 | PDOC.CMIN ---
- If Service Date Differs Date of service: 05/11/18 Time of Service: 15:54 Care Management Initial Assess REASON FOR HOSPITALIZATION:: CHF PAST MEDICAL HISTORY/PAST SURGICAL HISTORY:: A-fib, DM, restless leg, LAI, morbid obesity, hypothyroidisim, CHF, asthma, osteoarthritis, chronic kidney disease, depression. Surgical Hx: appendectomy,hysterectomy. 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 She lives with her spouse Bentley in [place], [place] she has two grown sons that live local. She enjoys caring for her 5 dogs. She is independent ADVANCE DIRECTIVES:: On file at [facility] agent Bentley Has patient been provided with information about the portal?: Yes Did the patient sign up for the portal?: No CODE STATUS:: Full Code INSURANCE COVERAGE / FINANCIAL ISSUES:: [facility] CURRENT HOME/COMMUNITY SERVICES/EQUIPMENT:: CPAP supplied by [employer] POTENTIAL DISCHARGE NEEDS:: Follow up appointment with primary care scheduled prior to discharge. PATIENT/FAMILY EDUCATION NEEDS:: Discharge education, follow up plan of care, ask me three and self management discussion. ANTICIPATED BARRIERS TO DISCHARGE:: None identified at this time TRANSPORTATION:: Via private car with spouse at time of discharge PLAN:: Maliha was readmitted for fluid overload. She is being cared for on the medical surgical unit. She is currently receiving IV lasix, daily weights and oxygen support. She will be discharged home when medically ready. She will need to have a follow up appointment scheduled with primary care provider prior to discharge. Anticipate no addtional services at time of discharge. CM to continue to provide support to patient and family discharge planning. Readmission - Within the Past 30 Days Yes or No: Y - Date of First Admission Date of 1st Admission: 05/07/18 - Date of this Admission Date of Admission: 05/11/18 - Office Visit Since 1st Admission Have you seen your PCP in the office since discharge?: No Had an appointment Been Scheduled?: Yes - I. Interview patient and/or Family Difficulty reaching your doctor or getting an office appt?: No Have you had trouble purchasing/ or taking medication?: No Have you had trouble with getting meals at home?: No Did you feel ready for discharge when you left the last time: Yes (I reported SOB to nurse) Why did you not feel ready for discharge?: I awoke feeling short of breath I reported this to my nurse. I wanted to go home and see my animals but I knew I was not ready. Were services received that you thought were set up on disch: Yes If patient did not receive services, were there orders at: No Did you call your physician beore you came to the ED?: No Did your physician tell you to come in?: No How do you think you became sick enough to come back?: I became more short of breath getting into my husbands car. When I got home and got inside the house I was unable to get any air in my lungs. - Ask the Care Team Members: What do you think caused the patient to be readmitted: MICHELLE reviewed clinical chart including vital signs and daily weights. MICHELLE spoke with ICU nurse and discharging MD who states that patient appeared mildly sob with activity but appeared well enough to return home. She was given an albuterol treatment and oral lasix to relieve the symptoms of SOB. - ED visits How many ED visits in the past 12 months: 3 - Assessment for Readmission Summary of readmission circumstances, based upon interviews: Maliha states she felt short of breath in the morning upon awakening. She reported this to her nurse and was given a updraft per her report. She states she does not feel that she was ready to return home. She was hopeful the dose of lasix was going to improve her breathing. Maliha states that she went into fluid overload after a [place] [facility] [place] receiving IV fluids in the past. CM met with patient prior to discharge, patient stated to CM that she felt ready to return home and really wanted to see her animals. She was alert and engaged and stated that she was having someshortness of breath and again she was hopeful that the lasix would help. CM reviewed clinical summary during readmission assessment. Patient had received 5 units of packed red blood cells and 2 units of FFP. Her daily weight had increased over 3 days of more than 10 pounds and her sao2 on room air was lower on day of admission. Patients fluid balance was negative for 24 hour output. Patient has a history of volume overload.
--- NOTE | 2018-05-11 15:54 | CHAPLAIN ---
Maliha was sitting up at the edge of her bed when I visited. I explained my role and offered support. She did not seem interested in a longer visit at that time.
--- NOTE | 2018-05-11 16:10 | INITIAL_ITS ---
- If Service Date Differs Date of service: 05/11/18 Time of Service: 15:54 Care Management Initial Assess REASON FOR HOSPITALIZATION:: CHF PAST MEDICAL HISTORY/PAST SURGICAL HISTORY:: A-fib, DM, restless leg, LAI, morbid obesity, hypothyroidisim, CHF, asthma, osteoarthritis, chronic kidney disease, depression. Surgical Hx: appendectomy,hysterectomy. 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 She lives with her spouse Bentley in [place], [place] she has two grown sons that live local. She enjoys caring for her 5 dogs. She is independent ADVANCE DIRECTIVES:: On file at [facility] agent [place] Has patient been provided with information about the portal?: Yes Did the patient sign up for the portal?: No CODE STATUS:: Full Code INSURANCE COVERAGE / FINANCIAL ISSUES:: [facility] CURRENT HOME/COMMUNITY SERVICES/EQUIPMENT:: CPAP supplied by [employer] POTENTIAL DISCHARGE NEEDS:: Follow up appointment with primary care scheduled prior to discharge. PATIENT/FAMILY EDUCATION NEEDS:: Discharge education, follow up plan of care, ask me three and self management discussion. ANTICIPATED BARRIERS TO DISCHARGE:: None identified at this time TRANSPORTATION:: Via private car with spouse at time of discharge PLAN:: Maliha was readmitted for fluid overload. She is being cared for on the medical surgical unit. She is currently receiving IV lasix, daily weights and oxygen support. She will be discharged home when medically ready. She will need to have a follow up appointment scheduled with primary care provider prior to discharge. Anticipate no addtional services at time of discharge. CM to continue to provide support to patient and family discharge planning. Readmission - Within the Past 30 Days Yes or No: Y - Date of First Admission Date of 1st Admission: 05/07/18 - Date of this Admission Date of Admission: 05/11/18 - Office Visit Since 1st Admission Have you seen your PCP in the office since discharge?: No Had an appointment Been Scheduled?: Yes - I. Interview patient and/or Family Difficulty reaching your doctor or getting an office appt?: No Have you had trouble purchasing/ or taking medication?: No Have you had trouble with getting meals at home?: No Did you feel ready for discharge when you left the last time: Yes (I reported SOB to nurse) Why did you not feel ready for discharge?: I awoke feeling short of breath I reported this to my nurse. I wanted to go home and see my animals but I knew I was not ready. Were services received that you thought were set up on disch: Yes If patient did not receive services, were there orders at: No Did you call your physician beore you came to the ED?: No Did your physician tell you to come in?: No How do you think you became sick enough to come back?: I became more short of breath getting into my husbands car. When I got home and got inside the house I was unable to get any air in my lungs. - Ask the Care Team Members: What do you think caused the patient to be readmitted: MICHELLE reviewed clinical chart including vital signs and daily weights. MICHELLE spoke with ICU nurse and discharging MD who states that patient appeared mildly sob with activity but appeared well enough to return home. She was given an albuterol treatment and oral lasix to relieve the symptoms of SOB. - ED visits How many ED visits in the past 12 months: 3 - Assessment for Readmission Summary of readmission circumstances, based upon interviews: Maliha states she felt short of breath in the morning upon awakening. She reported this to her nurse and was given a updraft per her report. She states she does not feel that she was ready to return home. She was hopeful the dose of lasix was going to improve her breathing. Maliha states that she went into fluid overload after a [place] [facility] [place] IV fluids in the past. CM met with patient prior to discharge, patient stated to CM that she felt ready to return home and really wanted to see her animals. She was alert and engaged and stated that she was having someshortness of breath and again she was hopeful that the lasix would help. CM reviewed clinical summary during readmission assessment. Patient had received 5 units of packed red blood cells and 2 units of FFP. Her daily weight had increased over 3 days of more than 10 pounds and her sao2 on room air was lower on day of admission. Patients fluid balance was negative for 24 hour output. Patient has a history of volume overload.
--- NOTE | 2018-05-11 16:31 | DI.VRAD_ITS ---
EXAM: XR Right Foot Complete, 3 or More Views CLINICAL HISTORY: 72 years old, female; Pain; Foot; Right; Patient HX: Lateral right foot pain, base of the 5th. TECHNIQUE: Frontal, lateral and oblique views of the right foot. 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 No acute fracture. Soft tissue and bony bunion with moderate hallux valgus deformity. Degenerative arthrosis within the midfoot and great toe metatarsophalangeal joint. Normal bone density. Moderate sized plantar calcaneal spur. Soft tissues: Swelling of the ankle and foot soft tissues. No radiopaque foreign body. Vasculature: Extensive vascular calcifications throughout the ankle and foot. IMPRESSION: No acute bone or joint abnormality. Dictated and Authenticated by: Rosas Rouse MD. Ordering:LEONARDO FU MD
[2018-05-11] MEDS: Simvastatin 10 MG TAB PO (20:06)
[2018-05-12] VITALS (9 sets, daily range): BP systolic 98–162; BP diastolic 45–55; PULSE 67–89; RESP 18–24; TEMP 37.1–38.2; O2SAT 92–93
[2018-05-12] MEDS: Acetaminophen 325 MG TAB PO ×3 (04:12→14:26)
[2018-05-12] MEDS: Sucralfate 1 GM TAB PO ×4 (04:13→21:30)
[2018-05-12] MEDS: Dofetilide 250 MCG CAP 500 MCG PO ×2 (06:40→17:28)
[2018-05-12] MEDS: Levothyroxine 25 MCG TAB PO (06:40)
[2018-05-12 07:07] LABS: HCT 24.1 % (36.0-46.0); HGB 7.4 g/dL (12.0-15.5); Mean Corp. HGB Concentration 30.7 g/dL (32.0-36.0); Mean Corpuscular Hemoglobin 27.7 pg (27.0-33.0); Mean Corpuscular Volume 90.3 fL (80-95); Mean Platelet Volume 8.8 fL (8.0-11.0); Platelet Count 386 x1000/uL (130-400); RBC 2.67 m/cumm (4.00-5.20); RBC Distribution Width 16.2 % (11.7-14.6); White Blood Cell Count 15.99 k/cumm (4.4-10.8)
[2018-05-12 07:17] LABS: Anion Gap 12.7 mmol/L (3-11); BUN 36 mg/dL (7-18); CO2 21.3 mmol/L (21.0-32.0); CREATININE 1.55 mg/dL (0.55-1.02); Calcium 8.4 mg/dL (8.5-10.1); Chloride 104 mmol/L (98-107); Estimated GFR 32.96 (mL/min/1.73m2); Glucose 112 mg/dL (70-100); Potassium 4.1 mmol/L (3.5-5.1); Sodium 138 mmol/L (136-145)
[2018-05-12 07:36] LABS: Uric Acid 10.2 mg/dL (2.6-6.0)
[2018-05-12] MEDS: Normal Saline Flush 10 ML SYR IVP ×2 (08:56→20:00)
[2018-05-12] MEDS: Furosemide 40 MG TAB PO (08:56)
[2018-05-12] MEDS: Pantoprazole 40 MG TABCR PO ×2 (08:56→20:00)
[2018-05-12] MEDS: Magnesium Chloride 64 MG TABCR PO ×2 (08:56→20:00)
[2018-05-12] MEDS: Metoprolol CR 100 MG TABCR PO (08:56)
[2018-05-12] MEDS: oxyCODONE 5 MG TAB PO ×2 (09:07→21:29)
[2018-05-12] MEDS: predniSONE 20 MG TAB 40 MG PO (09:07)
--- NOTE | 2018-05-12 10:44 | PDOC.CMPRO ---
- If Service Date Differs Date of service: 05/12/18 Time of Service: 10:44 Care Management Progress Note S/O: Maliha is sitting up in her bed when CM visits this morning. She is engaged in conversation and makes good eye contact. Maliha reports that she is having pain in both of her feet and this is making it very difficult for her to walk. She does report that she was recently up to the bathroom with assistance, but does not believe that she can go home, due to the fact that she can not walk. Maliha has nation and is being monitored on telemetry. Maliha was readmitted earlier this week with fluid overload. She continues to receive IV lasix and O2 support via [place]. A: 72 year old female admitted with CHF. Recent GI bleed. P: Maliha will discharge home when medically ready per MD. Anticipate patient will discharge with no services and follow up with her PCP. Maliha will transport via private vehicle with her , Bentley. CM will continue to offer support to patient and care team regarding discharge planning and disposition.
[2018-05-12] MEDS: Insulin Aspart 300 UNITS/3 ML PEN SC ×2 (12:15→17:27)
[2018-05-12 15:01] LABS: Bilirubin Negative (Negative); Blood Small (Negative); Clarity Clear; Glucose Negative (Negative); Ketones Negative (Negative); Leukocyte Esterase Negative (Negative); Nitrite Negative (Negative); Specific Gravity 1.015 (1.005-1.025); Urobilinogen 0.2 EU/dL (Up TO 0.2); pH 5.5 (5-8)
[2018-05-12 15:16] LABS: Epithelial Cells Rare HPF (Negative); RBC 20-50 (0-2); WBC 0-2 HPF (0-5)
[2018-05-12 15:17] LABS: Bacteria Few HPF (Negative); C & S Indicated? No; Crystals Moderate Amorphous HPF (Negative); Mucus Trace (Negative); Other Cells Few Renal (Negative)
--- NOTE | 2018-05-12 15:39 | CHAPLAIN ---
Maliha was sitting at the edge of her bed when I stopped in. She engaged in a short conversation. I offered support and let her know I'm available if she would like a further visit.
--- NOTE | 2018-05-12 15:41 | PGE_ITS ---
Assessment and Plan (1) Diastolic congestive heart failure: Current visit: Yes Status: Chronic Although she still has an oxygen requirement, she has been diuresing reasonably well. I am switching her to oral furosemide and monitor diuretic response. Dose may need to be titrated upward. (2) Anemia due to gastrointestinal blood loss: Current visit: Yes Status: Acute Hemoglobin continues to drift down but no overt bleeding, still has heme positive stool which is not surprising. Transfusion threshold at 7. Recheck hemoglobin tomorrow. Continue twice daily PPI and Carafate. (3) Aortic stenosis: Current visit: No Status: Chronic Heart murmur unchanged. I do not think this is playing a role in her current presentation. (4) Atrial fibrillation: Current visit: No Status: Chronic Remains in sinus rhythm on telemetry. Anticoagulation on hold because of GI bleed. Continue dofetilide. Given stability I think we can stop telemetry. (5) CKD (chronic kidney disease): Current visit: Yes Status: Chronic Good urine output, stable BUN and creatinine. Continue to monitor. (6) Diabetes mellitus: Current visit: No Status: Chronic Blood sugars climbing a little. With renal function still compromised I am not restarting metformin. Her blood sugars may spike with the addition of prednisone (see below). May need to add some long-acting insulin. See what her blood sugars trend over the next 24 hours. (7) Hypertension: Current visit: No Status: Chronic Pressure control acceptable on metoprolol, see how she responds to oral furosemide. (8) Fever: Current visit: Yes Status: Acute The source of fever not clear. Does not have signs or symptoms of pneumonia at this time. Urinalysis unremarkable. Perhaps related to gout? This late from her GI bleed I think it is unlikely this is related to that problem. Pending results of urine and blood cultures I am not starting any empiric antibiotics lacking any obvious focus of infection. She is at risk for urinary tract infections because of her indwelling Moore and I have discussed this risk with her. Because of her foot pain and frequent urination she very much does not want the catheter removed at this time. I will leave this in overnight and reassess tomorrow. (9) Foot pain, bilateral: Current visit: Yes Status: Acute I think this may be gout. She has no external manifestations of any inflammatory changes but her tenderness is exquisite, compatible with gout and her uric acid level is elevated. I am starting her on prednisone and allopurinol. Monitor clinical response. Subjective Interval history since last seen: Mrs. Iqbal complained of lateral right foot pain last evening, quite painful with any efforts at weightbearing or moving her foot. There were no visible inflammatory changes and she had a good pulse. X-rays of her foot did not show any fracture. Today complaining also of left foot pain. Right foot still more painful very tender to touch anywhere on the lateral aspect of the foot or plantar. She has no known history of gout. Uric acid level was obtained and found to be elevated above 10. She has been febrile overnight. She denies productive cough. Her breathing is more comfortable although still has oxygen requirement with SaO2 of 93% on 2 L. She denies any discomfort from the urinary catheter. She has not had any diarrhea. She denies abdominal pain. She has not had any discomfort from her IV sites. She continues to have a negative fluid balance, close to 1 L in the past 24 hours. Exam Narrative Exam Narrative: T-max 38.7 last evening, 37 .9 this afternoon. Sclera anicteric. Mucous membranes moist. Cannot see neck veins because of her neck size. Lungs without crackles wheeze or rub. Telemetry has shown sinus rhythm and on exam heart rhythm is regular with no S3 or S4, unchanged 2/6 systolic ejection murmur with no diastolic murmur heard. Active bowel sounds with obese abdomen nontender. Urine in Moore catheter is clear. There is no redness of either foot. No open ulcers. Good pulses in both feet. She is exquisitely tender to palpation anywhere along the lateral right foot, inconsistent tenderness on the plantar aspect of the foot and pain inconsistent but present with movement actively or passively of any of the toes on the right foot less so the ankle. Objective Objective Clinical Data: Abnormal lab results 05/12/18 05/12/18 05/12/18 Range/Units 06:40 06:40 13:04 WBC 15.99 H D (4.4-10.8) k/cumm RBC 2.67 L (4.00-5.20) m/cumm Hgb 7.4 L (12.0-15.5) g/dL Hct 24.1 L (36.0-46.0) % MCHC 30.7 L (32.0-36.0) g/dL RDW 16.2 H (11.7-14.6) % Anion Gap 12.7 H (3-11) mmol/L BUN 36 H (7-18) mg/dL Creatinine 1.55 H (0.55-1.02) mg/dL Glucose 112 H (70-100) mg/dL Uric Acid 10.2 H (2.6-6.0) mg/dL Calcium 8.4 L (8.5-10.1) mg/dL Urine Protein Trace H (Negative) mg/dL Urine Blood Small H (Negative) Urine RBC 20-50 H (0-2) Vital Signs Temperature 37.8 C H 05/12/18 14:25 Temperature Source Tympanic 05/12/18 14:25 Pulse 81 05/12/18 11:40 Pulse Rhythm Regular 05/12/18 08:15 Pulse 69 05/10/18 16:50 Respiratory Rate 20 05/12/18 11:40 Respiratory Effort 05/12/18 08:15 Respiratory Depth Normal 05/12/18 08:15 Respiratory Pattern Normal 05/12/18 08:15 Blood Pressure 114/55 L 05/12/18 11:40 Blood Pressure Mean 67 05/10/18 16:47 Blood Pressure Position Sitting 05/10/18 14:51 Pulse Oximetry 93 L 05/12/18 11:40 Oxygen Delivery Method Nasal Cannula 05/12/18 11:40 Oxygen Flow Rate 2 05/12/18 11:40 Fraction of Inspired Oxygen (FIO2) 35 05/10/18 15:40 Pain Level 4 05/12/18 14:26 Comment 05/12/18 14:25 Intake & Output 05/11/18 05/12/18 05/12/18 23:59 11:59 23:59 Intake Total 240 / 240 1050 / 1050 240 / 240 Output Total 1375 / 1375 725 / 725 375 / 375 Balance -1135 / -1135 325 / 325 -135 / -135 Weight 124.3 kg Intake: Oral 240 / 240 1050 / 1050 240 / 240 Output: Urine 1375 / 1375 725 / 725 375 / 375 Other: Urine Color Pale Light Nery Yellow Yellow Urine Appearance Clear Clear Clear Stool Occult Blood Positive Stool Size Large Stool Characteristics Soft Formed Brown Laboratory Results WBC 15.99 k/cumm (4.4-10.8) H D 05/12/18 06:40 RBC 2.67 m/cumm (4.00-5.20) L 05/12/18 06:40 Hgb 7.4 g/dL (12.0-15.5) L 05/12/18 06:40 Hct 24.1 % (36.0-46.0) L 05/12/18 06:40 MCV 90.3 fL (80-95) 05/12/18 06:40 MCH 27.7 pg (27.0-33.0) 05/12/18 06:40 MCHC 30.7 g/dL (32.0-36.0) L 05/12/18 06:40 RDW 16.2 % (11.7-14.6) H 05/12/18 06:40 Plt Count 386 x1000/uL (130-400) 05/12/18 06:40 MPV 8.8 fL (8.0-11.0) 05/12/18 06:40 Immature Gran % 0.7 05/10/18 15:00 Neutrophils % 82.5 05/10/18 15:00 Lymphocytes % 7.9 05/10/18 15:00 Monocytes % 7.3 05/10/18 15:00 Eosinophils % 1.5 05/10/18 15:00 Basophils % 0.1 05/10/18 15:00 Absolute Neutrophils 12.14 k/cumm (1.2-6.7) H 05/10/18 15:00 Absolute Lymphocytes 1.16 k/cumm (1.2-3.4) L 05/10/18 15:00 Absolute Monocytes 1.07 k/cumm (0.11-0.7) H 05/10/18 15:00 Absolute Eosinophils 0.22 k/cumm (0.0-0.7) 05/10/18 15:00 Absolute Basophils 0.01 k/cumm (0.0-0.2) 05/10/18 15:00 PT 17.6 sec (9.3-10.8) H 05/10/18 15:00 INR 1.8 (1.0-3.5) 05/10/18 15:00 APTT 26.8 sec (21.0-31.4) 05/10/18 15:00 D-Dimer 1712 ng/mlFEU (<500) H 05/10/18 15:00 Sample Site Right radial 05/10/18 15:15 pCO2 42 mmHg (34-47) 05/10/18 15:15 pO2 252 mmHg (83-108) H 05/10/18 15:15 O2 Saturation > 99 % (94-98) H 05/10/18 15:15 ABG pH 7.28 (7.35-7.45) L 05/10/18 15:15 ABG HCO3 20 mmol/L (22-28) L 05/10/18 15:15 ABG Total CO2 mmol/L (22-29) 05/10/18 15:15 ABG Base Excess mmol/L (-3-3) 05/10/18 15:15 Oxygen Liter Flow Niv L 05/10/18 15:15 FiO2 50 % 05/10/18 15:15 Sodium 138 mmol/L (136-145) 05/12/18 06:40 Potassium 4.1 mmol/L (3.5-5.1) 05/12/18 06:40 Chloride 104 mmol/L (98-107) 05/12/18 06:40 Carbon Dioxide 21.3 mmol/L (21.0-32.0) 05/12/18 06:40 Anion Gap 12.7 mmol/L (3-11) H 05/12/18 06:40 BUN 36 mg/dL (7-18) H 05/12/18 06:40 Creatinine 1.55 mg/dL (0.55-1.02) H 05/12/18 06:40 Estimated GFR/1.73 m2 32.96 (mL/min/1.73m2) 05/12/18 06:40 Glucose 112 mg/dL (70-100) H 05/12/18 06:40 Uric Acid 10.2 mg/dL (2.6-6.0) H 05/12/18 06:40 Calcium 8.4 mg/dL (8.5-10.1) L 05/12/18 06:40 Magnesium 2.2 mg/dL (1.8-2.4) 05/10/18 15:15 Total Bilirubin 0.4 mg/dL (0.2-1.0) 05/10/18 15:15 Conjugated Bilirubin 0.09 mg/dL (0.00-0.20) 05/10/18 15:15 AST 33 U/L (15-37) 05/10/18 15:15 ALT 36 U/L (12-78) 05/10/18 15:15 Alkaline Phosphatase 65 U/L (46-116) 05/10/18 15:15 Troponin I < 0.02 ng/mL (0.00-0.06) 05/10/18 23:47 NT-Pro-B Natriuret Pep 1112 pg/mL (-299) H 05/10/18 15:15 Total Protein 7.8 g/dL (6.4-8.2) 05/10/18 15:15 Albumin 3.0 g/dL (3.4-5.0) L 05/10/18 15:15 Lipase 229 U/L (73-393) 05/10/18 15:15 Urine Color Yellow (Yellow) 05/12/18 13:04 Urine Clarity Clear 05/12/18 13:04 Urine pH 5.5 (5-8) 05/12/18 13:04 Ur Specific [place] 1.015 (1.005-1.025) 05/12/18 13:04 Urine Protein Trace mg/dL (Negative) H 05/12/18 13:04 Urine Ketones Negative mg/dL (Negative) 05/12/18 13:04 Urine Blood Small (Negative) H 05/12/18 13:04 Urine Nitrite Negative (Negative) 05/12/18 13:04 Urine Bilirubin Negative (Negative) 05/12/18 13:04 Urine Urobilinogen 0.2 EU/dL (Up TO 0.2) 05/12/18 13:04 Ur Leukocyte Esterase Negative (Negative) 05/12/18 13:04 Urine RBC 20-50 (0-2) H 05/12/18 13:04 Urine WBC 0-2 HPF (0-5) 05/12/18 13:04 Ur Epithelial Cells Rare HPF (Negative) 05/12/18 13:04 Urine Crystals Moderate amorphous HPF (Negative) 05/12/18 13:04 Urine Bacteria Few HPF (Negative) 05/12/18 13:04 Urine Casts 5-10 coarse granular LPF (Negative) 05/12/18 13:04 Urine Mucus Trace (Negative) 05/12/18 13:04 Urine Other Few renal (Negative) 05/12/18 13:04 Ur Culture Indicated? No 05/12/18 13:04 Urine Glucose Negative mg/dL (Negative) 05/12/18 13:04 blood and urine cultures have been obtained earlier today, no growth thus far.
[2018-05-12] MEDS: Simvastatin 10 MG TAB PO (20:00)
[2018-05-13 03:20] VITALS: BP 125/56; PULSE 65; RESP 20; TEMP 37.4; O2SAT 95
[2018-05-13] MEDS: Sucralfate 1 GM TAB PO ×4 (04:25→21:34)
[2018-05-13] MEDS: Levothyroxine 25 MCG TAB PO (06:34)
[2018-05-13] MEDS: Dofetilide 250 MCG CAP 500 MCG PO ×2 (06:35→18:46)
[2018-05-13 07:18] LABS: HCT 24.2 % (36.0-46.0); HGB 7.4 g/dL (12.0-15.5); Mean Corp. HGB Concentration 30.6 g/dL (32.0-36.0); Mean Corpuscular Hemoglobin 27.6 pg (27.0-33.0); Mean Corpuscular Volume 90.3 fL (80-95); Platelet Count 454 x1000/uL (130-400); RBC 2.68 m/cumm (4.00-5.20); RBC Distribution Width 16.1 % (11.7-14.6); White Blood Cell Count 17.15 k/cumm (4.4-10.8)
[2018-05-13 07:36] LABS: Anion Gap 9.9 mmol/L (3-11); BUN 42 mg/dL (7-18); CO2 23.1 mmol/L (21.0-32.0); CREATININE 1.78 mg/dL (0.55-1.02); Calcium 8.8 mg/dL (8.5-10.1); Chloride 104 mmol/L (98-107); Glucose 94 mg/dL (70-100); Potassium 4.4 mmol/L (3.5-5.1); Sodium 137 mmol/L (136-145); Uric Acid 10.9 mg/dL (2.6-6.0)
[2018-05-13] MEDS: Allopurinol 100 MG TAB PO (07:36)
[2018-05-13] MEDS: Magnesium Chloride 64 MG TABCR PO ×2 (07:36→20:18)
[2018-05-13] MEDS: Pantoprazole 40 MG TABCR PO ×2 (07:36→20:18)
[2018-05-13] MEDS: Furosemide 40 MG TAB PO (07:37)
[2018-05-13] MEDS: Metoprolol CR 100 MG TABCR PO (07:37)
[2018-05-13] MEDS: predniSONE 20 MG TAB 40 MG PO (07:37)
[2018-05-13 07:40] VITALS: O2SAT 92
[2018-05-13] MEDS: Acetaminophen 325 MG TAB PO (07:49)
[2018-05-13 08:05] VITALS: BP 143/79; PULSE 74; RESP 20; TEMP 37.3; O2SAT 89
--- NOTE | 2018-05-13 10:50 | IN_ITS ---
Date of service: 05/13/18 Time of Service: 10:25 PT Notes Date: 05/13/18 Referring Doctor: Gurpreet Lizarraga PT Orders: PT CONSULT: CHF, weakness, anemia Precautions: Fall precautions Patient Profile/Admitting Diagnosis: Pt is a 72yr old female admitted with gastrointestinal bleed and anemia, presenting during admission with bilateral ankle and foot pain due to gout per MD notes PMHX: gastric ulcers, chronic anemia, obesity, diabetes mellitus type II, total knee replacement, obstructive sleep apnea uses CPAP, atrial fibrillation, depression, diverticulitis, hysterectomy, bilateral salpingectomy and oophorectomy, hypothyroid, appendectomy Social History/Home Situation: Lives with spouse in 2 level home, 2 steps to enter, 12 steps with railing to upstairs. States she only uses inside stairs once per day. Baseline mobility is independent gait with cane, independent with ADLS. Has grab bars in shower. Equipment Owned/DME: cane, grab bars in shower Subjective: Pt sitting on edge of bed, states she has new onset of bilateral foot and ankle pain that the doctor said was gout, states she is unable to stand or transfer to chair. She is taking Tylenol but that does not seem to reduce the pain. Objective: General observation: 2 liters 02 NC, nation catheter, Kpad for neck and back Mental Status: A& O x3 Pain: 5/10 pain in bilateral ankles and feet, constant, cervical pain is resolved ROM Right Upper Extremity: AROM WNL Left Upper Extremity: AROM WNL Right Lower Extremity: AROM WNL Left Lower Extremity: AROM WNL Strength: Right Upper Extremity: 4/5 shoulder flexion limited by pain R shoulder muscles, 5/5 bicep, 5/5 pediatric acute care unit nurse Left Upper Extremity: 5/5 throughout Right Lower Extremity: 4/5 hip flexion, 5/5 quad, 5/5 DF/PF Left Lower Extremity: 4/5 hip flexion, 5/5 quad, 5/5 DF/PF Bed Mobility/Transfers: supine-sit: independent Sit-supine: independent Sit-stand: modAx1 with FWW Stand-sit: SBA Bed-chair: unable 2nd foot pain Chair-bed: unable 2nd foot pain Gait: FWW, modAx1 stood for 30 seconds, unable to take steps in room or transfer to chair due to bilateral ankle and foot pain. Pt left sitting at edge of bed at end of session. Balance: Static Sitting: normal Dynamic Sitting: normal Static Standing: fair Dynamic Standing: fair Special Tests: Mobility Limitations Standardized Measure [facility] AM-PAC 6 clicks Basic Mobility Inpatient Short Form: Raw Score: 14 Standardized Score: 38.10 CMS Score: 61.29% CMS Modifier: CL Informed Consent/Education: Patient instructed in purpose of PT consult and plan of care. Assessment: Pt is a 72yr old female admitted with cervical pain, gastrointestinal bleed and anemia in setting of gastric ulcers, chronic anemia, obesity, diabetes mellitus type II, total knee replacement, obstructive sleep apnea uses CPAP, atrial fibrillation, depression. Patient presents with bilateral foot pain due to gout that is preventing her from being able to perform transfers and gait mobility. Pt may require use of STEDY lift for toileting and transfers until her pain is better managed, pain management will be a determining factor in her ability to progress with therapy intervention. If is unable to return to independent mobiilty she may require a correction care facility for rehab prior to return to home setting. At this time she will require a FWW for gait stability at discharge. Impairments are contributing to the following functional limitations: AMPAC score CMS Score: 61.29% Patient is assessed as a Low [id number] complexity based on the following: History: see above Examination: see above Presentation: stable Decision Making: AMPAC score CMS Score: 61.29% Goals: Goals X1 week 1. Supine-Sit independent 2. Sit-Supine independent 3. Sit-Stand independent 4. Stand-Sit independent 5. Bed-Chair supervision 6. Chair-Bed supervision 7. Gait supervision with FWW [id number] 8. Stairs up/down 12 steps with railing and cane, SBA Plan of Care/Treatment Plan: 1-2x/day, 7 days/week x 1 week. Plan of care has been reviewed with the ELECTRIC TRUCKER providing the service under Physical Therapy direction. Initiate Physical Therapy intervention for strengthening, bed mobility, transfers, gait, stairs, balance training, use of assistive device. DISCHARGE RECOMMENDATIONS: home with with FWW vs. correction care facility for rehab TREATMENT CODE/TIME: 24min IE 10:25 G Codes in the area mobility of walking and moving around: current status [id number] CL projected status GP [id number]. Discharge status (if discharging) GP [id number] CL based on AMPAC scores Vanessa Dias PT
--- NOTE | 2018-05-13 12:00 | HOME_ITS ---
Home Ventilator Equipment Home care company [employer] Reason: Obstructive Sleep Apnea Make: ResMed Model: REMStar Mask type: Nasal mask Mask size: Small Mode: BiPAP Settings: AutoB, Max-25, Min-13, PS8 Oxygen bleed in (lpm): 0 Condition: Good Date last checked: 05/13/18 Year of last sleep study: Compliance Daily Comments:
[2018-05-13] MEDS: Insulin Aspart 300 UNITS/3 ML PEN SC ×2 (12:13→16:56)
--- NOTE | 2018-05-13 13:15 | W.PM.PROGNOT ---
Assessment and Plan (1) Foot pain, bilateral: Current visit: Yes Status: Acute My feeling is her pain is related to fluid overload, peripheral edema. The pain is diffuse and does not appear to be directly involving the joints. It was initially attributed to gout which made sense given the elevated uric acid level and recent digestion of a large amount of blood. She was placed on prednisone empirically but as yet has not sensed any improvement. I proposed the strategy of trying to reduce her peripheral edema as much as possible with leg elevation, ROMAIN hose, aggressive diuresis. Switch to Lasix 20 mg IV twice daily (diuretic), start ROMAIN hose, start leg elevation, DC prednisone. (2) Anemia due to gastrointestinal blood loss: Current visit: Yes Status: Acute Recent severe GI bleed secondary to NSAID medication overuse. Her hemoglobin is low at 7.4 but she has no symptoms at this time. I am concerned about her being on prednisone given the recent GI bleed. Will DC the prednisone. Continue PPI and Carafate. Continue to monitor hemoglobin hematocrit closely. (3) Aortic stenosis: Current visit: Yes Status: Chronic No evidence of congestive heart failure at this time. (4) Peptic ulcer disease with hemorrhage: Current visit: Yes Status: Acute Continue PPI and Carafate therapy. Monitor H&H closely. (5) Atrial fibrillation: Current visit: Yes Status: Acute Rate continues to be well controlled. She is off anticoagulation because of recent GI bleed. Continue Tikosyn for rhythm control. (6) Obstructive sleep apnea syndrome: Current visit: Yes Status: Acute She is using her home CPAP device nightly with good effect. Subjective Interval history since last seen: Patient continues to complain of pain in her feet. Her feet hurt when she goes to stand on them. At rest and without weightbearing her feet do not hurt. There is some tenderness to flexing and extending her toes. The pain is equal bilaterally. She has had some black tarry stools at normal intervals with her normal bowel movements. She was told this was normal because of her previous GI bleed. She does not feel any dizziness, shortness of breath, chest pain. Exam Narrative Exam Narrative: She is sitting up on the side of the bed in no distress. Fully oriented and coherent. She had no respiratory difficulty. She is complaining of pain in her feet. She is dangling her feet over the side of the bed. Const General: cooperative and no acute distress Nutritional Appearance: obese Orientation: alert, awake and oriented x3 Chest Chest: normal inspection of the chest Resp Effort & Inspection: normal respiratory effort Auscultation: clear to auscultation bilaterally and no rales Cardio Rate: regular rate Rhythm: regular rhythm Heart Sounds: S1 normal, S2 normal and murmur (3/6) GI Inspection: normal to inspection Palpation: soft and nontender Skin General skin exam: no rashes or lesions noted Extrem General: normal to inspection Right lower extremity: foot (Very tender over the aspect of the foot, minimal tenderness with flexion extension at the MTP joint. No focal redness.) Left lower extremity: foot Objective Objective Clinical Data: Abnormal lab results 05/12/18 05/13/18 05/13/18 Range/Units 13:04 06:50 06:50 WBC 17.15 H (4.4-10.8) k/cumm RBC 2.68 L (4.00-5.20) m/cumm Hgb 7.4 L (12.0-15.5) g/dL Hct 24.2 L (36.0-46.0) % MCHC 30.6 L (32.0-36.0) g/dL RDW 16.1 H (11.7-14.6) % Plt Count 454 H (130-400) x1000/uL BUN 42 H (7-18) mg/dL Creatinine 1.78 H (0.55-1.02) mg/dL Uric Acid 10.9 H (2.6-6.0) mg/dL Urine Protein Trace H (Negative) mg/dL Urine Blood Small H (Negative) Urine RBC 20-50 H (0-2) Vital Signs Temperature 37.3 C 05/13/18 08:05 Temperature Source Tympanic 05/13/18 08:05 Pulse 74 05/13/18 08:05 Pulse Rhythm Regular 05/13/18 06:39 Pulse 69 05/10/18 16:50 Respiratory Rate 20 05/13/18 08:05 Respiratory Effort 05/13/18 06:39 Respiratory Depth Normal 05/13/18 06:39 Respiratory Pattern Normal 05/13/18 06:39 Blood Pressure 143/79 H 05/13/18 08:05 Blood Pressure Mean 67 05/10/18 16:47 Blood Pressure Position Sitting 05/10/18 14:51 Pulse Oximetry 89 L 05/13/18 08:05 Oxygen Delivery Method Nasal Cannula 05/13/18 08:05 Oxygen Flow Rate 2 05/13/18 08:05 Fraction of Inspired Oxygen (FIO2) 35 05/10/18 15:40 Pain Level 3 05/13/18 08:49 Comment 05/13/18 08:05 Intake & Output 05/12/18 05/13/18 05/13/18 23:59 11:59 23:59 Intake Total 480 / 480 780 / 780 Output Total 775 / 775 375 / 375 Balance -295 / -295 405 / 405 Weight 123.5 kg Intake: Oral 480 / 480 780 / 780 Output: Urine 775 / 775 375 / 375 Other: Urine Color Yellow Dark Nery Urine Appearance Clear Clear Laboratory Results WBC 17.15 k/cumm (4.4-10.8) H 05/13/18 06:50 RBC 2.68 m/cumm (4.00-5.20) L 05/13/18 06:50 Hgb 7.4 g/dL (12.0-15.5) L 05/13/18 06:50 Hct 24.2 % (36.0-46.0) L 05/13/18 06:50 MCV 90.3 fL (80-95) 05/13/18 06:50 MCH 27.6 pg (27.0-33.0) 05/13/18 06:50 MCHC 30.6 g/dL (32.0-36.0) L 05/13/18 06:50 RDW 16.1 % (11.7-14.6) H 05/13/18 06:50 Plt Count 454 x1000/uL (130-400) H 05/13/18 06:50 MPV 9.0 fL (8.0-11.0) 05/13/18 06:50 Immature Gran % 0.7 05/10/18 15:00 Neutrophils % 82.5 05/10/18 15:00 Lymphocytes % 7.9 05/10/18 15:00 Monocytes % 7.3 05/10/18 15:00 Eosinophils % 1.5 05/10/18 15:00 Basophils % 0.1 05/10/18 15:00 Absolute Neutrophils 12.14 k/cumm (1.2-6.7) H 05/10/18 15:00 Absolute Lymphocytes 1.16 k/cumm (1.2-3.4) L 05/10/18 15:00 Absolute Monocytes 1.07 k/cumm (0.11-0.7) H 05/10/18 15:00 Absolute Eosinophils 0.22 k/cumm (0.0-0.7) 05/10/18 15:00 Absolute Basophils 0.01 k/cumm (0.0-0.2) 05/10/18 15:00 PT 17.6 sec (9.3-10.8) H 05/10/18 15:00 INR 1.8 (1.0-3.5) 05/10/18 15:00 APTT 26.8 sec (21.0-31.4) 05/10/18 15:00 D-Dimer 1712 ng/mlFEU (<500) H 05/10/18 15:00 Sample Site Right radial 05/10/18 15:15 pCO2 42 mmHg (34-47) 05/10/18 15:15 pO2 252 mmHg (83-108) H 05/10/18 15:15 O2 Saturation > 99 % (94-98) H 05/10/18 15:15 ABG pH 7.28 (7.35-7.45) L 05/10/18 15:15 ABG HCO3 20 mmol/L (22-28) L 05/10/18 15:15 ABG Total CO2 mmol/L (22-29) 05/10/18 15:15 ABG Base Excess mmol/L (-3-3) 05/10/18 15:15 Oxygen Liter Flow Niv L 05/10/18 15:15 FiO2 50 % 05/10/18 15:15 Sodium 137 mmol/L (136-145) 05/13/18 06:50 Potassium 4.4 mmol/L (3.5-5.1) 05/13/18 06:50 Chloride 104 mmol/L (98-107) 05/13/18 06:50 Carbon Dioxide 23.1 mmol/L (21.0-32.0) 05/13/18 06:50 Anion Gap 9.9 mmol/L (3-11) 05/13/18 06:50 BUN 42 mg/dL (7-18) H 05/13/18 06:50 Creatinine 1.78 mg/dL (0.55-1.02) H 05/13/18 06:50 Estimated GFR/1.73 m2 28.10 (mL/min/1.73m2) 05/13/18 06:50 Glucose 94 mg/dL (70-100) 05/13/18 06:50 Uric Acid 10.9 mg/dL (2.6-6.0) H 05/13/18 06:50 Calcium 8.8 mg/dL (8.5-10.1) 05/13/18 06:50 Magnesium 2.2 mg/dL (1.8-2.4) 05/10/18 15:15 Total Bilirubin 0.4 mg/dL (0.2-1.0) 05/10/18 15:15 Conjugated Bilirubin 0.09 mg/dL (0.00-0.20) 05/10/18 15:15 AST 33 U/L (15-37) 05/10/18 15:15 ALT 36 U/L (12-78) 05/10/18 15:15 Alkaline Phosphatase 65 U/L (46-116) 05/10/18 15:15 Troponin I < 0.02 ng/mL (0.00-0.06) 05/10/18 23:47 NT-Pro-B Natriuret Pep 1112 pg/mL (-299) H 05/10/18 15:15 Total Protein 7.8 g/dL (6.4-8.2) 05/10/18 15:15 Albumin 3.0 g/dL (3.4-5.0) L 05/10/18 15:15 Lipase 229 U/L (73-393) 05/10/18 15:15 Urine Color Yellow (Yellow) 05/12/18 13:04 Urine Clarity Clear 05/12/18 13:04 Urine pH 5.5 (5-8) 05/12/18 13:04 Ur Specific [place] 1.015 (1.005-1.025) 05/12/18 13:04 Urine Protein Trace mg/dL (Negative) H 05/12/18 13:04 Urine Ketones Negative mg/dL (Negative) 05/12/18 13:04 Urine Blood Small (Negative) H 05/12/18 13:04 Urine Nitrite Negative (Negative) 05/12/18 13:04 Urine Bilirubin Negative (Negative) 05/12/18 13:04 Urine Urobilinogen 0.2 EU/dL (Up TO 0.2) 05/12/18 13:04 Ur Leukocyte Esterase Negative (Negative) 05/12/18 13:04 Urine RBC 20-50 (0-2) H 05/12/18 13:04 Urine WBC 0-2 HPF (0-5) 05/12/18 13:04 Ur Epithelial Cells Rare HPF (Negative) 05/12/18 13:04 Urine Crystals Moderate amorphous HPF (Negative) 05/12/18 13:04 Urine Bacteria Few HPF (Negative) 05/12/18 13:04 Urine Casts 5-10 coarse granular LPF (Negative) 05/12/18 13:04 Urine Mucus Trace (Negative) 05/12/18 13:04 Urine Other Few renal (Negative) 05/12/18 13:04 Ur Culture Indicated? No 05/12/18 13:04 Urine Glucose Negative mg/dL (Negative) 05/12/18 13:04
[2018-05-13] MEDS: Furosemide 20 MG/2 ML VIAL IVP (15:58)
[2018-05-13] MEDS: Normal Saline Flush 10 ML SYR IVP (15:58)
[2018-05-13 16:12] VITALS: BP 130/57; PULSE 69; RESP 19; TEMP 37.3; O2SAT 94
--- NOTE | 2018-05-13 16:54 | PDOC.CMPRO ---
Care Management Progress Note S/O Maliha was sitting on the edge of her bed with her walker waiting for assistance to ambulate when I entered. States she was feeling a bit down because she needs so much help now and has pain in her feet. Spoke briefly with her about possibly needing a short period of Rehab prior to returning home and asked her to consider the possibility and we could follow up tomorrow with more discussion. A 72 y.o. readmitted the same day as discharge with CHF P: Anticipate Maliha will consider short term placement prior to returning home with her , Bentley. Continue to follow and evaluate for discharge needs.
[2018-05-13 19:00] VITALS: BP 133/55; PULSE 75; RESP 19; TEMP 37.1; O2SAT 94
[2018-05-13] MEDS: Simvastatin 10 MG TAB PO (20:18)
[2018-05-13] MEDS: oxyCODONE 5 MG TAB PO (21:33)
[2018-05-14] VITALS (7 sets, daily range): BP systolic 112–164; BP diastolic 49–85; PULSE 68–83; RESP 10–20; TEMP 36.8–37.9; O2SAT 90–95
[2018-05-14] MEDS: Sucralfate 1 GM TAB PO ×4 (04:05→22:54)
[2018-05-14] MEDS: Dofetilide 250 MCG CAP 500 MCG PO ×2 (06:44→18:24)
[2018-05-14] MEDS: Levothyroxine 25 MCG TAB PO (06:44)
[2018-05-14] MEDS: Acetaminophen 325 MG TAB PO ×2 (07:12→20:27)
[2018-05-14] MEDS: Allopurinol 100 MG TAB PO (08:03)
[2018-05-14] MEDS: Metoprolol CR 100 MG TABCR PO (08:03)
[2018-05-14] MEDS: Magnesium Chloride 64 MG TABCR PO ×2 (08:03→20:27)
[2018-05-14] MEDS: Furosemide 20 MG/2 ML VIAL IVP ×2 (08:03→16:06)
[2018-05-14] MEDS: Pantoprazole 40 MG TABCR PO ×2 (08:03→20:27)
[2018-05-14] MEDS: Normal Saline Flush 10 ML SYR IVP ×2 (08:04→16:06)
[2018-05-14 11:24] LABS: HCT 25.3 % (36.0-46.0); HGB 7.9 g/dL (12.0-15.5); Mean Corp. HGB Concentration 31.2 g/dL (32.0-36.0); Mean Corpuscular Volume 89.7 fL (80-95); Mean Platelet Volume 8.5 fL (8.0-11.0); Platelet Count 533 x1000/uL (130-400); RBC 2.82 m/cumm (4.00-5.20); RBC Distribution Width 15.7 % (11.7-14.6); White Blood Cell Count 13.31 k/cumm (4.4-10.8)
[2018-05-14 11:30] LABS: Anion Gap 10.6 mmol/L (3-11); BUN 53 mg/dL (7-18); CO2 23.4 mmol/L (21.0-32.0); CREATININE 1.77 mg/dL (0.55-1.02); Chloride 103 mmol/L (98-107); Estimated GFR 28.28 (mL/min/1.73m2); Glucose 124 mg/dL (70-100); Potassium 3.9 mmol/L (3.5-5.1); Sodium 137 mmol/L (136-145)
[2018-05-14 11:40] LABS: Absolute Basophil Count 0.13 k/cumm (0.0-0.2); Absolute Neutrophil Count 11.18 k/cumm (1.2-6.7)
[2018-05-14 11:41] LABS: Anisocytosis 1+; Basophilic Stippling Present; Diff Comment Manual Differential
[2018-05-14 11:42] LABS: Poikilocytes 1+; Polychromasia Present
--- NOTE | 2018-05-14 12:04 | PGE_ITS ---
Assessment and Plan (1) Foot pain, bilateral: Current visit: Yes Status: Acute At this point it does appear to be from the swelling of both feet. Continue ROMAIN hose applied daily, continue IV furosemide to facilitate further diuresis and weight loss. Will try to get as much swelling out of her lower extremities and see if that helps with her foot pain. Does not appear to be related to acute gout at this point. (2) Anemia due to gastrointestinal blood loss: Current visit: Yes Status: Acute Recheck labs today. Monitor for signs of ongoing blood loss. Prednisone stopped yesterday. Continue PPI and Carafate. Subjective Interval history since last seen: She is still complaining of foot pain when she tries to walk. She feels this is limiting her rehabilitation. That said she does not want to go to a senior living facility but instead would prefer the foot pain to have improved and says she can rehab on her own when she can walk comfortably. No further evidence of bleeding. No dizziness, no chest pain, no shortness of breath. Exam Narrative Exam Narrative: She is sitting up on the side of the bed doing bathing, self- care. She appeared in no apparent distress. No breathing difficulty. Her main concern was the plantar aspect of both feet which showed no change in exam. She still has 1-2+ edema in both lower extremities and some swelling around the plantar aspect of both feet. No joint swelling or redness. Objective Objective Clinical Data: Abnormal lab results 05/14/18 05/14/18 Range/Units 11:10 11:10 WBC 13.31 H (4.4-10.8) k/cumm RBC 2.82 L (4.00-5.20) m/cumm Hgb 7.9 L (12.0-15.5) g/dL Hct 25.3 L (36.0-46.0) % MCHC 31.2 L (32.0-36.0) g/dL RDW 15.7 H (11.7-14.6) % Plt Count 533 H (130-400) x1000/uL Absolute Neutrophils 11.18 H (1.2-6.7) k/cumm Absolute Monocytes 0.80 H (0.11-0.7) k/cumm BUN 53 H D (7-18) mg/dL Creatinine 1.77 H (0.55-1.02) mg/dL Glucose 124 H (70-100) mg/dL Vital Signs Temperature 37.3 C 05/14/18 07:45 Temperature Source Tympanic 05/14/18 07:45 Pulse 83 05/14/18 07:45 Pulse Rhythm Regular 05/14/18 07:50 Pulse 69 05/10/18 16:50 Respiratory Rate 18 05/14/18 07:45 Respiratory Effort 05/14/18 07:50 Respiratory Depth Normal 05/14/18 07:50 Respiratory Pattern Normal 05/14/18 07:50 Blood Pressure 123/62 05/14/18 07:45 Blood Pressure Mean 67 05/10/18 16:47 Blood Pressure Position Sitting 05/10/18 14:51 Pulse Oximetry 92 L 05/14/18 07:45 Oxygen Delivery Method Room Air 05/14/18 07:45 Oxygen Flow Rate 0 05/14/18 07:45 Fraction of Inspired Oxygen (FIO2) 30 05/14/18 01:08 Pain Level 3 05/14/18 08:12 Comment 05/14/18 07:45 Intake & Output 05/13/18 05/14/18 05/14/18 23:59 11:59 23:59 Intake Total 560 / 560 250 / 250 Output Total 1475 / 1475 1900 / 1900 Balance -915 / -915 -1650 / -1650 Weight 123.3 kg Intake: IV Oral 540 / 540 250 / 250 Output: Urine 1475 / 1475 1900 / 1900 Other: Urine Color Yellow Pale Yellow Urine Appearance Clear Clear Stool Size Moderate Stool Characteristics Soft Formed Brown Voiding Methods Diaper Incontinent Laboratory Results WBC 13.31 k/cumm (4.4-10.8) H 05/14/18 11:10 RBC 2.82 m/cumm (4.00-5.20) L 05/14/18 11:10 Hgb 7.9 g/dL (12.0-15.5) L 05/14/18 11:10 Hct 25.3 % (36.0-46.0) L 05/14/18 11:10 MCV 89.7 fL (80-95) 05/14/18 11:10 MCH 28.0 pg (27.0-33.0) 05/14/18 11:10 MCHC 31.2 g/dL (32.0-36.0) L 05/14/18 11:10 RDW 15.7 % (11.7-14.6) H 05/14/18 11:10 Plt Count 533 x1000/uL (130-400) H 05/14/18 11:10 MPV 8.5 fL (8.0-11.0) 05/14/18 11:10 Immature Gran % 0.0 05/14/18 11:10 Neutrophils % 84.0 05/14/18 11:10 Lymphocytes % 9.0 05/14/18 11:10 Monocytes % 6.0 05/14/18 11:10 Eosinophils % 0.0 05/14/18 11:10 Basophils % 1.0 05/14/18 11:10 Absolute Neutrophils 11.18 k/cumm (1.2-6.7) H 05/14/18 11:10 Absolute Lymphocytes 1.20 k/cumm (1.2-3.4) 05/14/18 11:10 Absolute Monocytes 0.80 k/cumm (0.11-0.7) H 05/14/18 11:10 Absolute Eosinophils 0.00 k/cumm (0.0-0.7) 05/14/18 11:10 Absolute Basophils 0.13 k/cumm (0.0-0.2) 05/14/18 11:10 Differential Comment Manual differential 05/14/18 11:10 RBC Morphology See below 05/14/18 11:10 Polychromasia Present 05/14/18 11:10 Poikilocytosis 1+ 05/14/18 11:10 Basophilic Stippling Present 05/14/18 11:10 Anisocytosis 1+ 05/14/18 11:10 PT 17.6 sec (9.3-10.8) H 05/10/18 15:00 INR 1.8 (1.0-3.5) 05/10/18 15:00 APTT 26.8 sec (21.0-31.4) 05/10/18 15:00 D-Dimer 1712 ng/mlFEU (<500) H 05/10/18 15:00 Sample Site Right radial 05/10/18 15:15 pCO2 42 mmHg (34-47) 05/10/18 15:15 pO2 252 mmHg (83-108) H 05/10/18 15:15 O2 Saturation > 99 % (94-98) H 05/10/18 15:15 ABG pH 7.28 (7.35-7.45) L 05/10/18 15:15 ABG HCO3 20 mmol/L (22-28) L 05/10/18 15:15 ABG Total CO2 mmol/L (22-29) 05/10/18 15:15 ABG Base Excess mmol/L (-3-3) 05/10/18 15:15 Oxygen Liter Flow Niv L 05/10/18 15:15 FiO2 50 % 05/10/18 15:15 Sodium 137 mmol/L (136-145) 05/14/18 11:10 Potassium 3.9 mmol/L (3.5-5.1) 05/14/18 11:10 Chloride 103 mmol/L (98-107) 05/14/18 11:10 Carbon Dioxide 23.4 mmol/L (21.0-32.0) 05/14/18 11:10 Anion Gap 10.6 mmol/L (3-11) 05/14/18 11:10 BUN 53 mg/dL (7-18) H D 05/14/18 11:10 Creatinine 1.77 mg/dL (0.55-1.02) H 05/14/18 11:10 Estimated GFR/1.73 m2 28.28 (mL/min/1.73m2) 05/14/18 11:10 Glucose 124 mg/dL (70-100) H 05/14/18 11:10 Uric Acid 10.9 mg/dL (2.6-6.0) H 05/13/18 06:50 Calcium 9.0 mg/dL (8.5-10.1) 05/14/18 11:10 Magnesium 2.2 mg/dL (1.8-2.4) 05/10/18 15:15 Total Bilirubin 0.4 mg/dL (0.2-1.0) 05/10/18 15:15 Conjugated Bilirubin 0.09 mg/dL (0.00-0.20) 05/10/18 15:15 AST 33 U/L (15-37) 05/10/18 15:15 ALT 36 U/L (12-78) 05/10/18 15:15 Alkaline Phosphatase 65 U/L (46-116) 05/10/18 15:15 Troponin I < 0.02 ng/mL (0.00-0.06) 05/10/18 23:47 NT-Pro-B Natriuret Pep 1112 pg/mL (-299) H 05/10/18 15:15 Total Protein 7.8 g/dL (6.4-8.2) 05/10/18 15:15 Albumin 3.0 g/dL (3.4-5.0) L 05/10/18 15:15 Lipase 229 U/L (73-393) 05/10/18 15:15 Urine Color Yellow (Yellow) 05/12/18 13:04 Urine Clarity Clear 05/12/18 13:04 Urine pH 5.5 (5-8) 05/12/18 13:04 Ur Specific [place] 1.015 (1.005-1.025) 05/12/18 13:04 Urine Protein Trace mg/dL (Negative) H 05/12/18 13:04 Urine Ketones Negative mg/dL (Negative) 05/12/18 13:04 Urine Blood Small (Negative) H 05/12/18 13:04 Urine Nitrite Negative (Negative) 05/12/18 13:04 Urine Bilirubin Negative (Negative) 05/12/18 13:04 Urine Urobilinogen 0.2 EU/dL (Up TO 0.2) 05/12/18 13:04 Ur Leukocyte Esterase Negative (Negative) 05/12/18 13:04 Urine RBC 20-50 (0-2) H 05/12/18 13:04 Urine WBC 0-2 HPF (0-5) 05/12/18 13:04 Ur Epithelial Cells Rare HPF (Negative) 05/12/18 13:04 Urine Crystals Moderate amorphous HPF (Negative) 05/12/18 13:04 Urine Bacteria Few HPF (Negative) 05/12/18 13:04 Urine Casts 5-10 coarse granular LPF (Negative) 05/12/18 13:04 Urine Mucus Trace (Negative) 05/12/18 13:04 Urine Other Few renal (Negative) 05/12/18 13:04 Ur Culture Indicated? No 05/12/18 13:04 Urine Glucose Negative mg/dL (Negative) 05/12/18 13:04
[2018-05-14] MEDS: oxyCODONE 5 MG TAB PO ×2 (12:11→22:55)
--- NOTE | 2018-05-14 12:13 | PT.INTREAT ---
Date of service: 05/14/18 Time of Service: 12:13 PT Notes Inpatient Physical Therapy Treatment Note Date: 05/14/18 PRECAUTIONS:[] SUBJECTIVE: Pt reports mod amount of discomfort in her legs and feet. She states that she feels should would be fine to go home if they could just get her pain under control. Pt reports that she really does not want to go to rehab and would just like to be able to go home. OBJECTIVE: [] PAIN: mod BED MOBILITY/TRANSFERS Rolling L/R: [] Supine-sit: SBA Sit-supine: [] Sit-stand: Attempted but her feet and legs were too sore GAIT Assistive Device: FWW THEREX: Pt completed UE and LE ther ex as per flow sheet while in supine and seated positions. ASSESSMENT: Pt was concerned about her discomfort level and wants to be able to get up and walk so that she can get home because she really does not want to got to rehab. PLAN: Cont as per Martin as per PT POC. TREATMENT CODE/TIME: []
[2018-05-14] MEDS: Colchicine 0.6 MG TAB PO (18:24)
--- NOTE | 2018-05-14 18:33 | PDOC.CMPRO ---
Care Management Progress Note S/O Lying in bed visiting with family members. Concerned that she can't walk because of the pain in her feet. Became tearful when asked if she would consider a short term rehab placement to get her strength and mobility back. Feels she can improve at home once the gout is managed. A: 72 y.o female admitted for CHF and recent GI bleed P: Remains acute and would prefer to go home when medically cleared for discharge. will transport.
[2018-05-14] MEDS: Simvastatin 10 MG TAB PO (20:27)
[2018-05-15 03:09] VITALS: BP 129/71; PULSE 70; RESP 18; TEMP 36.4
[2018-05-15] MEDS: Sucralfate 1 GM TAB PO ×4 (03:10→22:02)
[2018-05-15] MEDS: Acetaminophen 325 MG TAB PO ×2 (03:10→16:31)
[2018-05-15] MEDS: Levothyroxine 25 MCG TAB PO (06:07)
[2018-05-15] MEDS: Dofetilide 250 MCG CAP 500 MCG PO ×2 (06:07→18:34)
[2018-05-15 07:40] VITALS: BP 135/56; PULSE 80; RESP 22; TEMP 36.3; O2SAT 93
[2018-05-15] MEDS: Normal Saline Flush 10 ML SYR IVP ×2 (07:42→16:32)
[2018-05-15] MEDS: Furosemide 20 MG/2 ML VIAL IVP ×2 (07:43→16:30)
[2018-05-15] MEDS: Allopurinol 100 MG TAB PO (07:43)
[2018-05-15] MEDS: Magnesium Chloride 64 MG TABCR PO ×2 (07:43→20:05)
[2018-05-15] MEDS: Metoprolol CR 100 MG TABCR PO (07:43)
[2018-05-15] MEDS: Pantoprazole 40 MG TABCR PO ×2 (07:43→20:06)
[2018-05-15 08:01] LABS: HCT 26.6 % (36.0-46.0); HGB 8.2 g/dL (12.0-15.5); Mean Corp. HGB Concentration 30.8 g/dL (32.0-36.0); Mean Corpuscular Hemoglobin 27.7 pg (27.0-33.0); Mean Corpuscular Volume 89.9 fL (80-95); Mean Platelet Volume 8.5 fL (8.0-11.0); Platelet Count 613 x1000/uL (130-400); RBC 2.96 m/cumm (4.00-5.20); RBC Distribution Width 15.6 % (11.7-14.6); White Blood Cell Count 13.34 k/cumm (4.4-10.8)
[2018-05-15 08:07] LABS: Anion Gap 14.1 mmol/L (3-11); BUN 49 mg/dL (7-18); CO2 21.9 mmol/L (21.0-32.0); CREATININE 1.71 mg/dL (0.55-1.02); Chloride 101 mmol/L (98-107); Estimated GFR 29.43 (mL/min/1.73m2); Glucose 95 mg/dL (70-100); Magnesium 2.1 mg/dL (1.8-2.4); Potassium 4.3 mmol/L (3.5-5.1); Sodium 137 mmol/L (136-145)
[2018-05-15 08:17] LABS: C-Reactive Protein 14.68 mg/dL (0.0-0.3)
[2018-05-15 08:32] LABS: Absolute Basophil Count 0.13 k/cumm (0.0-0.2); Absolute Eosinophil Count 0.27 k/cumm (0.0-0.7); Absolute Lymphocyte Count 1.07 k/cumm (1.2-3.4); Absolute Monocyte Count 0.67 k/cumm (0.11-0.7); Absolute Neutrophil Count 11.21 k/cumm (1.2-6.7); Nucleated RBC 3 /100WBC
[2018-05-15 08:35] LABS: Anisocytosis 1+; Diff Comment Manual Differential; Polychromasia Present
[2018-05-15] MEDS: oxyCODONE 5 MG TAB PO (08:52)
[2018-05-15] MEDS: Colchicine 0.6 MG TAB PO ×2 (08:52→20:09)
--- NOTE | 2018-05-15 09:32 | PT.INTREAT ---
Date of service: 05/15/18 Time of Service: 09:32 PT Notes Inpatient Physical Therapy Treatment Note Date: 05/15/18 PRECAUTIONS: Fall SUBJECTIVE: Patient states that she requested oxycodone for the pain in her feet, but has not received it yet. OBJECTIVE: PAIN: Patient complained of severe pain in bilateral feet with weight bearing BED MOBILITY/TRANSFERS Sit-stand: Mod A (performed x2) Stand-sit: CGA (performed x2) GAIT: Unable due to pain THEREX: Patient performed a seated upper extremity and lower extremity strengthening program, as per flow sheet. Patient was able to tolerate a slight progression in her program today, modifications made to repetitions are noted on flow sheet. ASSESSMENT: Patient was unable to tolerate weight bearing through bilateral feet, due to pain. Patient required Mod A for sit to stand transfer due to pain in feet. Patient would benefit from continued transfer and gait training when pain in B feet is managed. PLAN: Continue with PTs POC TREATMENT CODE/TIME: 25 minutes; TP x2
--- NOTE | 2018-05-15 09:37 | PTTR_ITS ---
Date of service: 05/15/18 Time of Service: 09:32 PT Notes Inpatient Physical Therapy Treatment Note Date: 05/15/18 PRECAUTIONS: Fall SUBJECTIVE: Patient states that she requested oxycodone for the pain in her feet , but has not received it yet. OBJECTIVE: PAIN: Patient complained of severe pain in bilateral feet with weight bearing BED MOBILITY/TRANSFERS Sit-stand: Mod A (performed x2) Stand-sit: CGA (performed x2) GAIT: Unable due to pain THEREX: Patient performed a seated upper extremity and lower extremity strengthening program, as per flow sheet. Patient was able to tolerate a slight progression in her program today, modifications made to repetitions are noted on flow sheet. ASSESSMENT: Patient was unable to tolerate weight bearing through bilateral feet , due to pain. Patient required Mod A for sit to stand transfer due to pain in feet. Patient would benefit from continued transfer and gait training when pain in B feet is managed. PLAN: Continue with PTs POC TREATMENT CODE/TIME: 25 minutes; TP x2
--- NOTE | 2018-05-15 11:05 | PT.INTREAT ---
Date of service: 05/15/18 Time of Service: 11:00 PT Notes Inpatient Physical Therapy Treatment Note Date: 05/15/18 PRECAUTIONS: Fall precautions SUBJECTIVE: Pt lying in bed, states she got pain medicine around 9am and that helps as long as she doesn't stand on her feet. States her foot pain remains 8/10 with any weight bearing activity. She states she took shuffle steps with the walker to transfer from the chair to the bed and it was extremely painful. OBJECTIVE: PAIN: 8/10 bilateral hips BED MOBILITY/TRANSFERS Supine-sit: independent Sit-supine: independent Sit-stand: max A with FWW Stand-sit: SBA GAIT Assistive Device: FWW Weight bearing: as tolerated Assist: [email or web address] Distance: stood 2x at bedside for 30 seconds each. Pt reporting 8/10 pain in feet with standing. Took 3 side steps with FWW in shuffle pattern to move up higher in bed, unable to progress gait mobility due to pain. BALANCE static sitting: normal dynamic sitting: normal static standing: fair dynamic standing: poor THEREX: Performed LE therex: see flow sheet for details. Ankle pumps, quad sets, SLR, LAQ, hip abduction x 20 reps bilaterally ASSESSMENT: Pt continues to have severe 8/10 foot pain with standing and weight bearing activities. She is able to stand with maxA x 1 person for short duration and take small shuffle steps with FWW to/from chair but is unable to progress to normal gait mobility due to pain. She does not appear to have strength deficit in LE's, as she is able to lift her legs into/out of bed idnepedently and perform 20 repetitions of multiple LE exercises easily. She does not appear to have neurological deficits. Pt's limitation at this time is pain in bilateral ankles and feet preventing her from weight bearing activities. Pain control needs to be primary emphasis in order for patient to be able to mobilize. PLAN: Progress transfers Progress gait mobility TREATMENT CODE/TIME: 24min TAx1 TPx1 1103 Vanessa Dias PT
[2018-05-15 11:10] VITALS: BP 160/66; PULSE 79; RESP 20; TEMP 37; O2SAT 95
--- NOTE | 2018-05-15 11:17 | PTTR_ITS ---
Date of service: 05/15/18 Time of Service: 11:00 PT Notes Inpatient Physical Therapy Treatment Note Date: 05/15/18 PRECAUTIONS: Fall precautions SUBJECTIVE: Pt lying in bed, states she got pain medicine around 9am and that helps as long as she doesn't stand on her feet. States her foot pain remains 8/ 10 with any weight bearing activity. She states she took shuffle steps with the walker to transfer from the chair to the bed and it was extremely painful. OBJECTIVE: PAIN: 8/10 bilateral hips BED MOBILITY/TRANSFERS Supine-sit: independent Sit-supine: independent Sit-stand: max A with FWW Stand-sit: SBA GAIT Assistive Device: FWW Weight bearing: as tolerated Assist: [email or web address] Distance: stood 2x at bedside for 30 seconds each. Pt reporting 8/10 pain in feet with standing. Took 3 side steps with FWW in shuffle pattern to move up higher in bed, unable to progress gait mobility due to pain. BALANCE static sitting: normal dynamic sitting: normal static standing: fair dynamic standing: poor THEREX: Performed LE therex: see flow sheet for details. Ankle pumps, quad sets , SLR, LAQ, hip abduction x 20 reps bilaterally ASSESSMENT: Pt continues to have severe 8/10 foot pain with standing and weight bearing activities. She is able to stand with maxA x 1 person for short duration and take small shuffle steps with FWW to/from chair but is unable to progress to normal gait mobility due to pain. She does not appear to have strength deficit in LE's, as she is able to lift her legs into/out of bed idnepedently and perform 20 repetitions of multiple LE exercises easily. She does not appear to have neurological deficits. Pt's limitation at this time is pain in bilateral ankles and feet preventing her from weight bearing activities. Pain control needs to be primary emphasis in order for patient to be able to mobilize. PLAN: Progress transfers Progress gait mobility TREATMENT CODE/TIME: 24min TAx1 TPx1 1103 Vanessa Dias PT
--- NOTE | 2018-05-15 14:43 | PDOC.CMPRO ---
- If Service Date Differs Date of service: 05/15/18 Time of Service: 14:43 Care Management Progress Note S/O: CM met with patient at the bedside she is sitting up on the side of the bed. No change in plan of care today she continues to have pain in both feet. She is receiving oral pain management and colchicine to treat gout. PT continues to consult on patient. Maliha wants to return home she missed her animals. No change in patients status today she continues to receive diuretics her weight is down 3.6 kg (7.9 lbs). A: Maliha is a 72 year old female admitted with CHF with a history of recent GI bleed. P: Maliha would like to return home vs home with home health nursing per provider. No change in status today. CM to continue to provide support to patient and family ongoing discharge planning and disposition.
[2018-05-15 15:42] VITALS: BP 119/51; PULSE 75; RESP 19; TEMP 37.5; O2SAT 95
--- NOTE | 2018-05-15 16:44 | W.PM.PROGNOT ---
Assessment and Plan (1) Foot pain, bilateral: Current visit: Yes Status: Acute I also doubt that this is gout, but we will continue to trial colchicine, as requested by family yesterday. Considering recent bleeding, I would like to r/o DVTs in BLE's - dopplers ordered. Trial ultram for pain control. (2) Anemia due to gastrointestinal blood loss: Current visit: Yes Status: Acute H/H stable. 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 Continue PPI and Carafate. (3) Aortic stenosis: Current visit: Yes Status: Chronic Carefully diuresing. (4) Congestive heart failure (CHF): Current visit: Yes Status: Resolved Likely due to fluid overload/diastolic. Doing much better now. Continue to monitor volume status. Subjective Interval history since last seen: The patient states that the improvement in her pain is very minimal. She states that her left foot hurts the worst. She still can't bear weight on it. She denies any dizziness, her breathing is completely back to normal. She denies any chest pain or shortness of breath. She expresses her frustration with the inability to walk. Exam Narrative Exam Narrative: General: well nourished, well developed obese , not in acute distress, sitting at the edge of the bed Neurological: alert and oriented x3, no focal deficits Psychiatric: appropriate speech pattern and content, appropriate affect Skin: Skin on bilateral feet is not in any way erythematous HEENT: normocephalic, extraocular movements are intact, moist mucous membranes, no goiter or JVD Cardiovascular: regularly regular rhythm, holosystolic ejection murmur Pulmonary: clear to auscultation bilaterally Gastrointestinal: Abdomen is soft, nontender, nondistended. No organomegaly or ascites. Extremities: Bilateral feet and ROMAIN stockings, +1 bilateral lower extremity edema, there is no erythema in short feet, left foot is tender to palpation on the dorsal surface; right foot is also, but less so Objective Objective Clinical Data: Abnormal lab results 05/15/18 05/15/18 05/15/18 Range/Units 07:52 07:52 07:52 WBC 13.34 H (4.4-10.8) k/cumm RBC 2.96 L (4.00-5.20) m/cumm Hgb 8.2 L (12.0-15.5) g/dL Hct 26.6 L (36.0-46.0) % MCHC 30.8 L (32.0-36.0) g/dL RDW 15.6 H (11.7-14.6) % Plt Count 613 H (130-400) x1000/uL Absolute Neutrophils 11.21 H (1.2-6.7) k/cumm Absolute Lymphocytes 1.07 L (1.2-3.4) k/cumm Anion Gap 14.1 H (3-11) mmol/L BUN 49 H (7-18) mg/dL Creatinine 1.71 H (0.55-1.02) mg/dL C-Reactive Protein 14.68 H (0.0-0.3) mg/dL Vital Signs Temperature 37.5 C 05/15/18 15:42 Temperature Source Temporal Artery Scan 05/15/18 15:42 Pulse 75 05/15/18 15:42 Pulse Rhythm Regular 05/15/18 15:45 Pulse 69 05/10/18 16:50 Respiratory Rate 19 05/15/18 15:42 Respiratory Effort Non-Labored 05/15/18 15:45 Respiratory Depth Normal 05/15/18 15:45 Respiratory Pattern Normal 05/15/18 15:45 Blood Pressure 119/51 L 05/15/18 15:42 Blood Pressure Mean 67 05/10/18 16:47 Blood Pressure Position Sitting 05/10/18 14:51 Pulse Oximetry 95 05/15/18 15:42 Oxygen Delivery Method Room Air 05/15/18 15:42 Oxygen Flow Rate 0 05/15/18 15:42 Fraction of Inspired Oxygen (FIO2) 30 05/14/18 01:08 Pain Level 5 05/15/18 16:31 Comment 05/14/18 13:40 Intake & Output 05/14/18 05/15/18 05/15/18 23:59 11:59 23:59 Intake Total 600 / 600 1280 / 1280 490 / 490 Output Total 2672 / 2672 1475 / 1475 975 / 975 Balance -2071 / -2071 -195 / -195 -485 / -485 Weight 119.7 kg Intake: Oral 600 / 600 1280 / 1280 490 / 490 Output: Urine 2672 / 2672 1475 / 1475 975 / 975 Other: Urine Color Pale Pale Pale Yellow Yellow Urine Appearance Clear Clear Clear Urine Odor None Comment showered earlier this am Stool Size Moderate Stool Characteristics Soft Formed Brown Voiding Methods Indwelling Catheter Laboratory Results WBC 13.34 k/cumm (4.4-10.8) H 05/15/18 07:52 RBC 2.96 m/cumm (4.00-5.20) L 05/15/18 07:52 Hgb 8.2 g/dL (12.0-15.5) L 05/15/18 07:52 Hct 26.6 % (36.0-46.0) L 05/15/18 07:52 MCV 89.9 fL (80-95) 05/15/18 07:52 MCH 27.7 pg (27.0-33.0) 05/15/18 07:52 MCHC 30.8 g/dL (32.0-36.0) L 05/15/18 07:52 RDW 15.6 % (11.7-14.6) H 05/15/18 07:52 Plt Count 613 x1000/uL (130-400) H 05/15/18 07:52 MPV 8.5 fL (8.0-11.0) 05/15/18 07:52 Immature Gran % 0.0 05/15/18 07:52 Neutrophils % 84.0 05/15/18 07:52 Lymphocytes % 8.0 05/15/18 07:52 Monocytes % 5.0 05/15/18 07:52 Eosinophils % 2.0 05/15/18 07:52 Basophils % 1.0 05/15/18 07:52 Absolute Neutrophils 11.21 k/cumm (1.2-6.7) H 05/15/18 07:52 Absolute Lymphocytes 1.07 k/cumm (1.2-3.4) L 05/15/18 07:52 Absolute Monocytes 0.67 k/cumm (0.11-0.7) 05/15/18 07:52 Absolute Eosinophils 0.27 k/cumm (0.0-0.7) 05/15/18 07:52 Absolute Basophils 0.13 k/cumm (0.0-0.2) 05/15/18 07:52 Nucleated RBCs 3 /100WBC 05/15/18 07:52 Differential Comment Manual differential 05/15/18 07:52 RBC Morphology See below 05/15/18 07:52 Polychromasia Present 05/15/18 07:52 Poikilocytosis 1+ 05/14/18 11:10 Basophilic Stippling Present 05/14/18 11:10 Anisocytosis 1+ 05/15/18 07:52 PT 17.6 sec (9.3-10.8) H 05/10/18 15:00 INR 1.8 (1.0-3.5) 05/10/18 15:00 APTT 26.8 sec (21.0-31.4) 05/10/18 15:00 D-Dimer 1712 ng/mlFEU (<500) H 05/10/18 15:00 Sample Site Right radial 05/10/18 15:15 pCO2 42 mmHg (34-47) 05/10/18 15:15 pO2 252 mmHg (83-108) H 05/10/18 15:15 O2 Saturation > 99 % (94-98) H 05/10/18 15:15 ABG pH 7.28 (7.35-7.45) L 05/10/18 15:15 ABG HCO3 20 mmol/L (22-28) L 05/10/18 15:15 ABG Total CO2 mmol/L (22-29) 05/10/18 15:15 ABG Base Excess mmol/L (-3-3) 05/10/18 15:15 Oxygen Liter Flow Niv L 05/10/18 15:15 FiO2 50 % 05/10/18 15:15 Sodium 137 mmol/L (136-145) 05/15/18 07:52 Potassium 4.3 mmol/L (3.5-5.1) 05/15/18 07:52 Chloride 101 mmol/L (98-107) 05/15/18 07:52 Carbon Dioxide 21.9 mmol/L (21.0-32.0) 05/15/18 07:52 Anion Gap 14.1 mmol/L (3-11) H 05/15/18 07:52 BUN 49 mg/dL (7-18) H 05/15/18 07:52 Creatinine 1.71 mg/dL (0.55-1.02) H 05/15/18 07:52 Estimated GFR/1.73 m2 29.43 (mL/min/1.73m2) 05/15/18 07:52 Glucose 95 mg/dL (70-100) 05/15/18 07:52 Uric Acid 10.9 mg/dL (2.6-6.0) H 05/13/18 06:50 Calcium 9.0 mg/dL (8.5-10.1) 05/15/18 07:52 Magnesium 2.1 mg/dL (1.8-2.4) 05/15/18 07:52 Total Bilirubin 0.4 mg/dL (0.2-1.0) 05/10/18 15:15 Conjugated Bilirubin 0.09 mg/dL (0.00-0.20) 05/10/18 15:15 AST 33 U/L (15-37) 05/10/18 15:15 ALT 36 U/L (12-78) 05/10/18 15:15 Alkaline Phosphatase 65 U/L (46-116) 05/10/18 15:15 Troponin I < 0.02 ng/mL (0.00-0.06) 05/10/18 23:47 C-Reactive Protein 14.68 mg/dL (0.0-0.3) H 05/15/18 07:52 NT-Pro-B Natriuret Pep 1112 pg/mL (-299) H 05/10/18 15:15 Total Protein 7.8 g/dL (6.4-8.2) 05/10/18 15:15 Albumin 3.0 g/dL (3.4-5.0) L 05/10/18 15:15 Lipase 229 U/L (73-393) 05/10/18 15:15 Urine Color Yellow (Yellow) 05/12/18 13:04 Urine Clarity Clear 05/12/18 13:04 Urine pH 5.5 (5-8) 05/12/18 13:04 Ur Specific [place] 1.015 (1.005-1.025) 05/12/18 13:04 Urine Protein Trace mg/dL (Negative) H 05/12/18 13:04 Urine Ketones Negative mg/dL (Negative) 05/12/18 13:04 Urine Blood Small (Negative) H 05/12/18 13:04 Urine Nitrite Negative (Negative) 05/12/18 13:04 Urine Bilirubin Negative (Negative) 05/12/18 13:04 Urine Urobilinogen 0.2 EU/dL (Up TO 0.2) 05/12/18 13:04 Ur Leukocyte Esterase Negative (Negative) 05/12/18 13:04 Urine RBC 20-50 (0-2) H 05/12/18 13:04 Urine WBC 0-2 HPF (0-5) 05/12/18 13:04 Ur Epithelial Cells Rare HPF (Negative) 05/12/18 13:04 Urine Crystals Moderate amorphous HPF (Negative) 05/12/18 13:04 Urine Bacteria Few HPF (Negative) 05/12/18 13:04 Urine Casts 5-10 coarse granular LPF (Negative) 05/12/18 13:04 Urine Mucus Trace (Negative) 05/12/18 13:04 Urine Other Few renal (Negative) 05/12/18 13:04 Ur Culture Indicated? No 05/12/18 13:04 Urine Glucose Negative mg/dL (Negative) 05/12/18 13:04
--- NOTE | 2018-05-15 17:30 | DI.US_ITS ---
SYMPTOM/DIAGNOSIS: BILAT FOOT PAIN, LEG SWELLING, ? DVT BILATERAL LOWER EXTREMITY ULTRASOUND: The deep veins of the lower extremities show normal compression, augmentation and color flow. No evidence of a deep venous thrombus is seen. The visualized portions of the greater saphenous veins are patent and show normal blood flow. Soft tissues are unremarkable. IMPRESSION: No evidence of a lower extremity deep venous thrombus.
--- NOTE | 2018-05-15 18:31 | DI.VRAD_ITS ---
EXAM: US Bilateral Duplex Lower Extremity Veins. EXAM DATE/TIME: 05/15/2018 5:57 PM CLINICAL HISTORY: 72 years old, female; Pain; Foot; Bilateral; Prior surgery; Surgery date: 6+ months; Surgery type: Knee replacement TECHNIQUE: Real-time duplex ultrasound scan of the Bilateral extremities with 2-D curry scale, color Doppler flow and spectral waveform analysis. Complete exam focused on the bilateral lower extremity veins. COMPARISON: No relevant prior studies available. FINDINGS: Right deep veins: Unremarkable. The common femoral, femoral and popliteal veins are patent without thrombus. Normal compressibility, augmentation response and Doppler waveforms. Right superficial veins: Saphenofemoral junction is patent without thrombus. Left deep veins: Unremarkable. The common femoral, femoral and popliteal veins are patent without thrombus. Normal compressibility, augmentation response and Doppler waveforms. Left superficial veins: Saphenofemoral junction is patent without thrombus. Soft tissues: Unremarkable. IMPRESSION: No acute findings. Dictated and Authenticated by: Wilfrido Guerra MD. Ordering:MAURO WOLFE MD
[2018-05-15] MEDS: Simvastatin 10 MG TAB PO (20:05)
[2018-05-15] MEDS: traMADol 50 MG TAB PO (20:05)
[2018-05-15 22:01] VITALS: BP 145/62; PULSE 61; RESP 18; TEMP 36.5; O2SAT 95
[2018-05-16] VITALS (9 sets, daily range): BP systolic 97–133; BP diastolic 49–70; PULSE 61–74; RESP 16–20; TEMP 36.3–37.2; O2SAT 92–100
[2018-05-16] MEDS: Acetaminophen 325 MG TAB PO ×3 (03:08→20:48)
[2018-05-16] MEDS: Sucralfate 1 GM TAB PO ×4 (03:09→20:48)
[2018-05-16] MEDS: Pantoprazole 40 MG TABCR PO ×2 (06:56→20:44)
[2018-05-16] MEDS: Dofetilide 250 MCG CAP 500 MCG PO ×2 (06:56→18:05)
[2018-05-16] MEDS: Levothyroxine 25 MCG TAB PO (06:57)
[2018-05-16] MEDS: traMADol 50 MG TAB PO ×2 (06:59→20:44)
[2018-05-16 08:19] LABS: Anion Gap 12.1 mmol/L (3-11); BUN 50 mg/dL (7-18); CO2 23.9 mmol/L (21.0-32.0); CREATININE 1.49 mg/dL (0.55-1.02); Calcium 9.4 mg/dL (8.5-10.1); Chloride 101 mmol/L (98-107); Glucose 103 mg/dL (70-100); Potassium 4.2 mmol/L (3.5-5.1); Sodium 137 mmol/L (136-145)
[2018-05-16] MEDS: Furosemide 20 MG/2 ML VIAL IVP (08:19)
[2018-05-16] MEDS: Allopurinol 100 MG TAB PO (08:20)
[2018-05-16] MEDS: Metoprolol CR 100 MG TABCR PO (08:20)
[2018-05-16] MEDS: Colchicine 0.6 MG TAB PO (08:20)
[2018-05-16] MEDS: Magnesium Chloride 64 MG TABCR PO ×2 (08:20→20:44)
[2018-05-16] MEDS: Normal Saline Flush 10 ML SYR IVP ×2 (08:21→15:46)
[2018-05-16 08:22] LABS: C-Reactive Protein 17.13 mg/dL (0.0-0.3); Magnesium 2.3 mg/dL (1.8-2.4)
[2018-05-16 08:54] LABS: HCT 24.3 % (36.0-46.0); HGB 7.6 g/dL (12.0-15.5); Mean Corp. HGB Concentration 31.3 g/dL (32.0-36.0); Mean Corpuscular Hemoglobin 27.9 pg (27.0-33.0); Mean Corpuscular Volume 89.3 fL (80-95); Mean Platelet Volume 8.6 fL (8.0-11.0); Platelet Count 622 x1000/uL (130-400); RBC 2.72 m/cumm (4.00-5.20); RBC Distribution Width 15.5 % (11.7-14.6); White Blood Cell Count 12.67 k/cumm (4.4-10.8)
[2018-05-16 09:10] LABS: Absolute Eosinophil Count 0.51 k/cumm (0.0-0.7); Absolute Lymphocyte Count 1.27 k/cumm (1.2-3.4); Absolute Monocyte Count 0.76 k/cumm (0.11-0.7); Absolute Neutrophil Count 10.14 k/cumm (1.2-6.7)
[2018-05-16 09:11] LABS: Basophilic Stippling Present; Diff Comment Manual Differential; Hypochromasia 2+; Polychromasia Present
[2018-05-16] MEDS: oxyCODONE 5 MG TAB PO ×2 (09:28→23:10)
--- NOTE | 2018-05-16 09:50 | PDOC.CMPRO ---
- If Service Date Differs Date of service: 05/16/18 Time of Service: 09:50 Care Management Progress Note S/O: CM met with patient at the bedside she is sitting up in the chair today she states her breathing feels 100% better. She is no longer on oxygen. She does not understand the pain in her feet. She states she would like a consult she has seen him in the past. Maliha reports that she has never been worked up for rheumatoid arthritis she does have significant joint pain per her report. She is willing to consider home health for PT and she is hopeful she will be able to discharge home soon. A: Maliha is a 72 year old female admitted with CHF with a history of recent GI bleed. P: Maliha would like to return home when medically ready per provider. She continues to receive PT. She is considering home health services for PT. No change in status today. Family will transport home when she is ready for discharge via private car. CM to continue to provide support to patient and family ongoing discharge planning and disposition.
--- NOTE | 2018-05-16 10:39 | PT.INTREAT ---
Date of service: 05/16/18 Time of Service: 10:39 PT Notes Inpatient Physical Therapy Treatment Note Date: 05/16/18 PRECAUTIONS: Fall SUBJECTIVE: Maliha states that she is still having significant pain in B feet with weight bearing. OBJECTIVE: PAIN: Patient complained of pain in bilateral feet with weight bearing BED MOBILITY/TRANSFERS Sit-stand: CGA (performed x5) Stand-sit: CGA (performed x5) GAIT Assistive Device: FWW Weight bearing: WBAT B Assist: CGA/SBA Distance: 15' x3, static standing 2 x 30 seconds Deviation: Seated rest due to pain in B feet THEREX: Patient was issued green Thera-Band for independent completion of upper extremity strengthening exercises. Patient was able to demonstrate rows, shoulder flexion, bicep curls, triceps, chair push-ups, and horizontal abduction, well requiring some cueing for proper exercise performance. ASSESSMENT: Patient was able to tolerate a progression in gait distance with FWW support requiring cueing for FWW mechanics for safety, as well as frequent seated rest due to pain in bilateral feet. Patient would benefit from continued gait and transfer training as well as strengthening for improved ability to perform functional daily tasks. PLAN: Continue with PTs POC TREATMENT CODE/TIME: 45 minutes; TA x2/TP
--- NOTE | 2018-05-16 10:47 | PTTR_ITS ---
Date of service: 05/16/18 Time of Service: 10:39 PT Notes Inpatient Physical Therapy Treatment Note Date: 05/16/18 PRECAUTIONS: Fall SUBJECTIVE: Maliha states that she is still having significant pain in B feet with weight bearing. OBJECTIVE: PAIN: Patient complained of pain in bilateral feet with weight bearing BED MOBILITY/TRANSFERS Sit-stand: CGA (performed x5) Stand-sit: CGA (performed x5) GAIT Assistive Device: FWW Weight bearing: WBAT B Assist: CGA/SBA Distance: 15' x3, static standing 2 x 30 seconds Deviation: Seated rest due to pain in B feet THEREX: Patient was issued green Thera-Band for independent completion of upper extremity strengthening exercises. Patient was able to demonstrate rows, shoulder flexion, bicep curls, triceps, chair push-ups, and horizontal abduction , well requiring some cueing for proper exercise performance. ASSESSMENT: Patient was able to tolerate a progression in gait distance with FWW support requiring cueing for FWW mechanics for safety, as well as frequent seated rest due to pain in bilateral feet. Patient would benefit from continued gait and transfer training as well as strengthening for improved ability to perform functional daily tasks. PLAN: Continue with PTs POC TREATMENT CODE/TIME: 45 minutes; TA x2/TP
--- NOTE | 2018-05-16 14:10 | CHAPLAIN ---
Maliha's daughter in law Shari Iqabl RN, (a former [employer] nurse) was with Maliha when I stopped in. Maliha is frustrated by the pain in her feet and being unable to walk far because of the pain. She is used to be out and about and doing things, and she has five dogs at home waiting for her as well. Maliha asked about getting a newspaper because she likes to do the crossword puzzle. I got a paper for her, and Shari had brought in a book of crossword puzzle. Shari suggested that Maliha ask a family member to bring her Tyron in so she can read if she'd like to. We talked about expecting and walking exact answers for medical conditions and being frustrated when the issues are easily resolved.
[2018-05-16 14:51] LABS: Bilirubin Negative (Negative); Blood Moderate (Negative); Clarity Sl Cloudy; Glucose Negative (Negative); Ketones Negative (Negative); Leukocyte Esterase Negative (Negative); Nitrite Negative (Negative); Urobilinogen 0.2 EU/dL (Up TO 0.2); pH 5.5 (5-8)
[2018-05-16 15:02] LABS: Bacteria Few HPF (Negative); C & S Indicated? C&S Done As Ordered; Casts Negative LPF (Negative); Crystals Negative HPF (Negative); Epithelial Cells Rare HPF (Negative); Mucus Trace (Negative); RBC >50 (0-2)
--- NOTE | 2018-05-16 15:46 | PT.INTREAT ---
Date of service: 05/16/18 Time of Service: 15:35 PT Notes Date: 05/16/18 PRECAUTIONS: Fall precautions SUBJECTIVE: Pt lying in bed, states she will try to walk. Reports her ankles still hurt but are slightly better than they were. OBJECTIVE: PAIN: 5/10 bilateral ankles BED MOBILITY/TRANSFERS Supine-sit: independent Sit-stand: CGA with FWW Bed-chair: SBA with FWW Stand-sit: SBA GAIT Assistive Device: FWW Weight bearing: as tolerated Assist: SBA Distance: 20ftx2. pt reports pain in ankles with each step, performs gait with slow step to gait pattern. cues provided to utilize upper body to unload LE's and to stay closer to FWW. Pt left up in chair after session completed. THEREX: pt performed upper and lower extremity strengthening, see flow sheet for details. BALANCE static sitting: normal dynamic sitting: normal static standing: fair dynamic standing: poor ASSESSMENT: Continues with bilateral foot and ankle pain, but able to progress transfers and gait short distances with FWW with decreased assistance. Pt should begin mobilizing to toilet instead of using commode for toileting to increase strength and functional mobility. Pt able to perform therapeutic exercise without difficulty. PLAN: Progress transfers Progress gait mobility TREATMENT CODE/TIME: 25min TAx1 TPx1 [id number] Vanessa Dias PT
[2018-05-16 16:44] LABS: HCT 26.8 % (36.0-46.0); HGB 8.4 g/dL (12.0-15.5)
--- NOTE | 2018-05-16 17:54 | W.PODCONSULT ---
Date of service: 05/16/18 Time of Service: 17:55 History of Present Illness Chief Complaint: foot pain, bilaterally Narrative: Maliha is a 72-year-old white female known to me from the office setting who is complaining of bilateral foot pain. She states that her right foot got caught up in the bed sheets about a week ago and developed pain. Pain is primarily located in the medial arch and plantar heel region. She states about 4 days ago, spontaneously during the night, without traumatic episode, pain in the left foot developed. She points to the dorsal aspect of the left foot in the vicinity of the ankle and subtalar joint towards the base of the fifth metatarsal. The pain in her feet is interfering with her ability to stand and ambulate. REPLACED BY [facility] Family History Mother Thoracic aneurysm, ruptured Personal history of malignant neoplasm Father Heart disease Myocardial infarction Cerebrovascular accident Grandfather Heart disease Cerebrovascular accident Grandfather Heart disease Grandmother Heart disease Grandmother Personal history of malignant neoplasm Medical History Hyperkalemia (Acute) GI bleeding (Acute) Diverticulitis (Chronic) Diabetes type 2, controlled (Chronic) Hypothyroid (Chronic) Atrial fibrillation (Chronic) Aortic stenosis, moderate (Chronic) Social History household members: other details: 5 current occupational status: employed current occupation: [employer] frequency: 1-2 times per week duration: 45-60 minutes/day Smoking/Tobacco Use Status: Former Tobacco Use how long ago did patient quit smokin alcohol intake: never Surgical History History of appendectomy (Chronic) H/O hysterectomy for benign disease (Chronic) Replacement of total knee joint (~12/2007) Sigmoidoscopy (~08/2009) Abdominal hysterectomy Bilateral salpingectomy with oophorectomy Appendectomy Recurrent major depression in partial remission (~10/2012) Exam Narrative Exam Narrative: Vascular exam: Feet are warm to the touch, trace peripheral edema is noted bilaterally. Calves are soft to palpation with negative DVT studies via ultrasound noted performed earlier today. Peripheral pulses are palpable although due to the edema are somewhat distant. Good capillary return to all toes. Muscle groups of 5 out of 5 bilaterally although she is deconditioned and guarded secondary to pain. Skeletal exam: The right foot has tenderness in the plantar medial aspect of the heel and along the medial slip of the plantar fascia. The forefoot joints although arthritic with bunion and hammertoe noted were currently asymptomatic. The midfoot and rear foot joints were also benign. Pain on palpation of the heel was graded +3/10. Examination of the left foot was more remarkable. Erythema is appreciated over the anterior lateral aspect of the foot with significant tenderness being appreciated on palpation of both the subtalar joint and ankle joint. Inversion and eversion of the calcaneus was painful within the subtalar joint, dorsiflexion and plantarflexion of the foot at the ankle was likewise painful. The forefoot joints were currently benign although bunion and hammertoes are noted. The midfoot was likewise unremarkable. Neurologically she appears to be grossly intact. Toes were downgoing and pain is appreciated with palpation of both feet. Lab findings: WBCs are 12.67 hemoglobin is 8.4 RBCs 2.72 hematocrit 26.8 platelets are 622 BUN 50 creatinine 1.49 CRP is 17.13 urine protein is high urine blood is moderate urine RBCs high uric acid is over 10, Lyme and rheumatoid factors are pending Assessment: Joint inflammation left subtalar and ankle joint as above differentials can include Fracture, inflamatory athtritis (gout) versus sepsis Plantar fasciitis of the right foot Plan: Radiographs will be ordered on the left foot. If no fractures or signs of pathology evident I will consider aspirating the subtalar joint and/or ankle joint tomorrow. I agree with continuing the allopurinol and colchicine. Warm compresses to the affected area on the left foot may be of some benefit in pain reduction. Thank you for the consultation. Results Last Vital Signs Temp 37.1 C 05/16/18 15:42 Pulse 65 05/16/18 15:42 Resp 20 05/16/18 15:42 BP 97/59 L 05/16/18 15:42 Pulse Ox 92 L 05/16/18 15:42 Labs : 05/16/18 16:35 05/16/18 07:58 Laboratory Results - last 24 hr 05/15/18 05/16/18 05/16/18 07:52 07:58 07:58 WBC RBC Hgb Hct MCV MCH MCHC RDW Plt Count MPV Immature Gran % Neutrophils % Lymphocytes % Monocytes % Eosinophils % Basophils % Absolute Neutrophils Band Neutrophils Absolute Lymphocytes Absolute Monocytes Absolute Eosinophils Absolute Basophils Differential Comment RBC Morphology Polychromasia Hypochromasia Basophilic Stippling Sodium 137 Potassium 4.2 Chloride 101 Carbon Dioxide 23.9 Anion Gap 12.1 H BUN 50 H Creatinine 1.49 H Estimated GFR/1.73 m2 34.50 Glucose 103 H Calcium 9.4 Magnesium 2.3 C-Reactive Protein 17.13 H Urine Color Urine Clarity Urine pH Ur Specific [place] Urine Protein Urine Ketones Urine Blood Urine Nitrite Urine Bilirubin Urine Urobilinogen Ur Leukocyte Esterase Urine RBC Urine WBC Ur Epithelial Cells Urine Crystals Urine Bacteria Urine Casts Urine Mucus Ur Culture Indicated? Urine Glucose Path Cons Comment 05/16/18 05/16/18 05/16/18 07:58 14:35 16:35 WBC 12.67 H RBC 2.72 L Hgb 7.6 L 8.4 L Hct 24.3 L 26.8 L MCV 89.3 MCH 27.9 MCHC 31.3 L RDW 15.5 H Plt Count 622 H MPV 8.6 Immature Gran % 0.0 Neutrophils % 79.0 Lymphocytes % 10.0 Monocytes % 6.0 Eosinophils % 4.0 Basophils % 0.0 Absolute Neutrophils 10.14 H Band Neutrophils 1.0 Absolute Lymphocytes 1.27 Absolute Monocytes 0.76 H Absolute Eosinophils 0.51 Absolute Basophils 0.00 Differential Comment Manual differential RBC Morphology See below Polychromasia Present Hypochromasia 2+ Basophilic Stippling Present Sodium Potassium Chloride Carbon Dioxide Anion Gap BUN Creatinine Estimated GFR/1.73 m2 Glucose Calcium Magnesium C-Reactive Protein Urine Color Yellow Urine Clarity Sl cloudy Urine pH 5.5 Ur Specific [place] 1.020 Urine Protein 30 H Urine Ketones Negative Urine Blood Moderate H Urine Nitrite Negative Urine Bilirubin Negative Urine Urobilinogen 0.2 Ur Leukocyte Esterase Negative Urine RBC >50 H Urine WBC 3-5 Ur Epithelial Cells Rare Urine Crystals Negative Urine Bacteria Few Urine Casts Negative Urine Mucus Trace Ur Culture Indicated? C&s done as ordered Urine Glucose Negative Path Cons Comment
[2018-05-16] MEDS: Furosemide 40 MG TAB PO (18:05)
--- NOTE | 2018-05-16 20:12 | DI.RAD_ITS ---
SYMPTOMS/DIAGNOSIS: SWELLING AND PAIN IN ANKLE, SUBTALAR JOINT LEFT FOOT: Three views. No priors. There is a moderate hallux valgus deformity. Hammertoe deformities are seen at the 2nd, 3rd and 4th toes. There are mild degenerative changes present throughout the foot. There is a tiny osseous density adjacent to the base fo the proximal phalanx of the 4th toe. This appears well corticated and likely is old. No definite acute fracture or dislocation is seen. Vascular calcifications are seen in the soft tissues. There is generalized soft tissue swelling of the foot. IMPRESSION: 1. Degenerative changes of the left foot with a bunion deformity. 2. Osseous density adjacent to the base of the 4th toe. It appears well corticated and likely reflects old injury. No definite acute fracture is identified. Please correlate clinically. LEFT ANKLE: Three views. No acute fracture or dislocation is seen. Vascular calcifications are seen in the soft tissues. There is generalized soft tissue swelling present. There is a spur at the plantar surface of the calcaneus. IMPRESSION: No acute abnormality.
--- NOTE | 2018-05-16 20:16 | W.PM.PROGNOT ---
Assessment and Plan (1) Foot pain, bilateral: Current visit: Yes Status: Acute Podiatry consulted. ?Gout. Continue empiric colchicine. PT/OT. Ultram for pain control. (2) Anemia due to gastrointestinal blood loss: Current visit: Yes Status: Acute H/H stable. 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 Continue PPI and Carafate. (3) Aortic stenosis: Current visit: Yes Status: Chronic Carefully diuresing - switching to PO. (4) Congestive heart failure (CHF): Current visit: Yes Status: Resolved diastolic/due to fluid overload. Continue diuresis - change to PO. Subjective Interval history since last seen: Pain in the feet is slightly better, L>R, and Ms Iqbal was able to take a few steps around the room today. She denies any dizziness, chest pain, shortness of breath, nausea, vomiting. She would still like to go home rather than rehab. Exam Narrative Exam Narrative: General: well nourished, well developed obese female, not in acute distress, laying in bed Neurological: alert and oriented x3, no focal deficits Psychiatric: appropriate speech pattern and content, appropriate affect Skin: Skin on bilateral feet is not in any way erythematous HEENT: normocephalic, extraocular movements are intact, moist mucous membranes, no goiter or JVD Cardiovascular: regularly regular rhythm, holosystolic ejection murmur Pulmonary: clear to auscultation bilaterally Gastrointestinal: Abdomen is soft, nontender, nondistended. No organomegaly or ascites. Extremities: Bilateral feet with 1+ edema; no obvious erythema or heat on my exam; tenderness on plantar surface of B feet. Objective Objective Clinical Data: Abnormal lab results 05/16/18 05/16/18 05/16/18 Range/Units 07:58 07:58 07:58 WBC 12.67 H (4.4-10.8) k/cumm RBC 2.72 L (4.00-5.20) m/cumm Hgb 7.6 L (12.0-15.5) g/dL Hct 24.3 L (36.0-46.0) % MCHC 31.3 L (32.0-36.0) g/dL RDW 15.5 H (11.7-14.6) % Plt Count 622 H (130-400) x1000/uL Absolute Neutrophils 10.14 H (1.2-6.7) k/cumm Absolute Monocytes 0.76 H (0.11-0.7) k/cumm Anion Gap 12.1 H (3-11) mmol/L BUN 50 H (7-18) mg/dL Creatinine 1.49 H (0.55-1.02) mg/dL Glucose 103 H (70-100) mg/dL C-Reactive Protein 17.13 H (0.0-0.3) mg/dL Urine Protein (Negative) mg/dL Urine Blood (Negative) Urine RBC (0-2) 05/16/18 05/16/18 Range/Units 14:35 16:35 WBC (4.4-10.8) k/cumm RBC (4.00-5.20) m/cumm Hgb 8.4 L (12.0-15.5) g/dL Hct 26.8 L (36.0-46.0) % MCHC (32.0-36.0) g/dL RDW (11.7-14.6) % Plt Count (130-400) x1000/uL Absolute Neutrophils (1.2-6.7) k/cumm Absolute Monocytes (0.11-0.7) k/cumm Anion Gap (3-11) mmol/L BUN (7-18) mg/dL Creatinine (0.55-1.02) mg/dL Glucose (70-100) mg/dL C-Reactive Protein (0.0-0.3) mg/dL Urine Protein 30 H (Negative) mg/dL Urine Blood Moderate H (Negative) Urine RBC >50 H (0-2) Vital Signs Temperature 37.2 C 05/16/18 19:58 Temperature Source Tympanic 05/16/18 19:58 Pulse 69 05/16/18 19:58 Pulse Rhythm Regular 05/16/18 15:55 Pulse 69 05/10/18 16:50 Respiratory Rate 20 05/16/18 19:58 Respiratory Effort Non-Labored 05/16/18 15:55 Respiratory Depth Normal 05/16/18 15:55 Respiratory Pattern Normal 05/16/18 15:55 Blood Pressure 112/49 L 05/16/18 19:58 Blood Pressure Mean 67 05/10/18 16:47 Blood Pressure Position Sitting 05/10/18 14:51 Pulse Oximetry 92 L 05/16/18 19:58 Oxygen Delivery Method Room Air 05/16/18 19:58 Oxygen Flow Rate 0 05/16/18 19:58 Fraction of Inspired Oxygen (FIO2) 30 05/14/18 01:08 Pain Level 3 05/16/18 09:28 Comment 05/16/18 03:06 Intake & Output 05/15/18 05/16/18 05/16/18 23:59 11:59 23:59 Intake Total 850 / 850 610 / 610 Output Total 1875 / 1875 900 / 900 1000 / 1000 Balance -1025 / -1025 -290 / -290 -1000 / -1000 Intake: IV Oral 850 / 850 600 / 600 Output: Urine 1875 / 1875 900 / 900 1000 / 1000 Other: Urine Color Yellow Yellow Yellow Urine Appearance Clear Clear Clear Stool Size Large Stool Characteristics Soft Formed Brown Laboratory Results WBC 12.67 k/cumm (4.4-10.8) H 05/16/18 07:58 RBC 2.72 m/cumm (4.00-5.20) L 05/16/18 07:58 Hgb 8.4 g/dL (12.0-15.5) L 05/16/18 16:35 Hct 26.8 % (36.0-46.0) L 05/16/18 16:35 MCV 89.3 fL (80-95) 05/16/18 07:58 MCH 27.9 pg (27.0-33.0) 05/16/18 07:58 MCHC 31.3 g/dL (32.0-36.0) L 05/16/18 07:58 RDW 15.5 % (11.7-14.6) H 05/16/18 07:58 Plt Count 622 x1000/uL (130-400) H 05/16/18 07:58 MPV 8.6 fL (8.0-11.0) 05/16/18 07:58 Immature Gran % 0.0 05/16/18 07:58 Neutrophils % 79.0 05/16/18 07:58 Lymphocytes % 10.0 05/16/18 07:58 Monocytes % 6.0 05/16/18 07:58 Eosinophils % 4.0 05/16/18 07:58 Basophils % 0.0 05/16/18 07:58 Absolute Neutrophils 10.14 k/cumm (1.2-6.7) H 05/16/18 07:58 Band Neutrophils 1.0 % 05/16/18 07:58 Absolute Lymphocytes 1.27 k/cumm (1.2-3.4) 05/16/18 07:58 Absolute Monocytes 0.76 k/cumm (0.11-0.7) H 05/16/18 07:58 Absolute Eosinophils 0.51 k/cumm (0.0-0.7) 05/16/18 07:58 Absolute Basophils 0.00 k/cumm (0.0-0.2) 05/16/18 07:58 Nucleated RBCs 3 /100WBC 05/15/18 07:52 Differential Comment Manual differential 05/16/18 07:58 RBC Morphology See below 05/16/18 07:58 Polychromasia Present 05/16/18 07:58 Hypochromasia 2+ 05/16/18 07:58 Poikilocytosis 1+ 05/14/18 11:10 Basophilic Stippling Present 05/16/18 07:58 Anisocytosis 1+ 05/15/18 07:52 PT 17.6 sec (9.3-10.8) H 05/10/18 15:00 INR 1.8 (1.0-3.5) 05/10/18 15:00 APTT 26.8 sec (21.0-31.4) 05/10/18 15:00 D-Dimer 1712 ng/mlFEU (<500) H 05/10/18 15:00 Sample Site Right radial 05/10/18 15:15 pCO2 42 mmHg (34-47) 05/10/18 15:15 pO2 252 mmHg (83-108) H 05/10/18 15:15 O2 Saturation > 99 % (94-98) H 05/10/18 15:15 ABG pH 7.28 (7.35-7.45) L 05/10/18 15:15 ABG HCO3 20 mmol/L (22-28) L 05/10/18 15:15 ABG Total CO2 mmol/L (22-29) 05/10/18 15:15 ABG Base Excess mmol/L (-3-3) 05/10/18 15:15 Oxygen Liter Flow Niv L 05/10/18 15:15 FiO2 50 % 05/10/18 15:15 Sodium 137 mmol/L (136-145) 05/16/18 07:58 Potassium 4.2 mmol/L (3.5-5.1) 05/16/18 07:58 Chloride 101 mmol/L (98-107) 05/16/18 07:58 Carbon Dioxide 23.9 mmol/L (21.0-32.0) 05/16/18 07:58 Anion Gap 12.1 mmol/L (3-11) H 05/16/18 07:58 BUN 50 mg/dL (7-18) H 05/16/18 07:58 Creatinine 1.49 mg/dL (0.55-1.02) H 05/16/18 07:58 Estimated GFR/1.73 m2 34.50 (mL/min/1.73m2) 05/16/18 07:58 Glucose 103 mg/dL (70-100) H 05/16/18 07:58 Uric Acid 10.9 mg/dL (2.6-6.0) H 05/13/18 06:50 Calcium 9.4 mg/dL (8.5-10.1) 05/16/18 07:58 Magnesium 2.3 mg/dL (1.8-2.4) 05/16/18 07:58 Total Bilirubin 0.4 mg/dL (0.2-1.0) 05/10/18 15:15 Conjugated Bilirubin 0.09 mg/dL (0.00-0.20) 05/10/18 15:15 AST 33 U/L (15-37) 05/10/18 15:15 ALT 36 U/L (12-78) 05/10/18 15:15 Alkaline Phosphatase 65 U/L (46-116) 05/10/18 15:15 Troponin I < 0.02 ng/mL (0.00-0.06) 05/10/18 23:47 C-Reactive Protein 17.13 mg/dL (0.0-0.3) H 05/16/18 07:58 NT-Pro-B Natriuret Pep 1112 pg/mL (-299) H 05/10/18 15:15 Total Protein 7.8 g/dL (6.4-8.2) 05/10/18 15:15 Albumin 3.0 g/dL (3.4-5.0) L 05/10/18 15:15 Lipase 229 U/L (73-393) 05/10/18 15:15 Urine Color Yellow (Yellow) 05/16/18 14:35 Urine Clarity Sl cloudy 05/16/18 14:35 Urine pH 5.5 (5-8) 05/16/18 14:35 Ur Specific [place] 1.020 (1.005-1.025) 05/16/18 14:35 Urine Protein 30 mg/dL (Negative) H 05/16/18 14:35 Urine Ketones Negative mg/dL (Negative) 05/16/18 14:35 Urine Blood Moderate (Negative) H 05/16/18 14:35 Urine Nitrite Negative (Negative) 05/16/18 14:35 Urine Bilirubin Negative (Negative) 05/16/18 14:35 Urine Urobilinogen 0.2 EU/dL (Up TO 0.2) 05/16/18 14:35 Ur Leukocyte Esterase Negative (Negative) 05/16/18 14:35 Urine RBC >50 (0-2) H 05/16/18 14:35 Urine WBC 3-5 HPF (0-5) 05/16/18 14:35 Ur Epithelial Cells Rare HPF (Negative) 05/16/18 14:35 Urine Crystals Negative HPF (Negative) 05/16/18 14:35 Urine Bacteria Few HPF (Negative) 05/16/18 14:35 Urine Casts Negative LPF (Negative) 05/16/18 14:35 Urine Mucus Trace (Negative) 05/16/18 14:35 Urine Other Few renal (Negative) 05/12/18 13:04 Ur Culture Indicated? C&s done as ordered 05/16/18 14:35 Urine Glucose Negative mg/dL (Negative) 05/16/18 14:35 Path Cons Comment 05/15/18 07:52
--- NOTE | 2018-05-16 20:42 | DI.VRAD_ITS ---
EXAM: XR Left Ankle Complete, 3 or More Views CLINICAL HISTORY: 72 years old, female; Signs and symptoms; Other: Swelling and pain in ankle TECHNIQUE: Frontal, lateral and oblique views of the left ankle. COMPARISON: No relevant prior studies available. FINDINGS: Bones/joints: Degenerative changes at the talonavicular articulation. No acute fracture. No dislocation. Soft tissues: Soft tissue swelling over the left malleolus. Vasculature: Vascular calcifications. Other findings: Plan the calcaneal scarring. IMPRESSION: No displaced fractures identified. Mild soft tissue swelling. Dictated and Authenticated by: Jon Gaxiola MD. Ordering:DANIAL KHAN MD
[2018-05-16] MEDS: Simvastatin 10 MG TAB PO (20:44)
--- NOTE | 2018-05-16 20:45 | DI.VRAD_ITS ---
EXAM: XR Left Foot Complete, 3 or More Views CLINICAL HISTORY: 72 years old, female; Signs and symptoms; Other: Pain and swelling of subtalar TECHNIQUE: Frontal, lateral and oblique views of the left foot. COMPARISON: No relevant prior studies available. FINDINGS: Bones/joints: Hallux valgus deformity. Degenerative changes within the mid foot. A small osseous fragment adjacent to the base of the fourth digit proximal phalanx, a small fracture cannot be ruled out. Bunion formation. No dislocation. Soft tissues: Soft tissue swelling. No radiopaque foreign body. Vasculature: Vascular calcifications. Other findings: Hammertoe deformities. IMPRESSION: Degenerative changes. Small osseous fragment adjacent to the base of the proximal phalanx of the fourth digit, a small fracture cannot be ruled out. Otherwise, no acute displaced fractures identified. Dictated and Authenticated by: Jon Gaxiola MD. Ordering:DANIAL KHAN MD
[2018-05-17] MEDS: Sucralfate 1 GM TAB PO ×3 (04:14→15:39)
[2018-05-17 04:26] VITALS: BP 158/69; PULSE 61; RESP 18; TEMP 36.5; O2SAT 96
[2018-05-17] MEDS: Levothyroxine 25 MCG TAB PO (06:45)
[2018-05-17] MEDS: Dofetilide 250 MCG CAP 500 MCG PO ×2 (06:45→18:09)
[2018-05-17 07:22] VITALS: BP 138/48; PULSE 83; RESP 20; TEMP 36.6; O2SAT 93
[2018-05-17 07:25] VITALS: O2SAT 92
[2018-05-17 07:28] LABS: Abs Immature Grans 0.28 k/cumm (0.0-0.09); HCT 25.7 % (36.0-46.0); HGB 7.9 g/dL (12.0-15.5); Mean Corp. HGB Concentration 30.7 g/dL (32.0-36.0); Mean Corpuscular Hemoglobin 27.6 pg (27.0-33.0); Mean Corpuscular Volume 89.9 fL (80-95); Mean Platelet Volume 8.6 fL (8.0-11.0); Platelet Count 696 x1000/uL (130-400); RBC 2.86 m/cumm (4.00-5.20); RBC Distribution Width 15.6 % (11.7-14.6); White Blood Cell Count 12.01 k/cumm (4.4-10.8)
[2018-05-17 07:37] LABS: Anion Gap 10.9 mmol/L (3-11); BUN 57 mg/dL (7-18); C-Reactive Protein 15.39 mg/dL (0.0-0.3); CO2 25.1 mmol/L (21.0-32.0); Calcium 9.4 mg/dL (8.5-10.1); Chloride 102 mmol/L (98-107); Estimated GFR 27.74 (mL/min/1.73m2); Glucose 102 mg/dL (70-100); Magnesium 2.4 mg/dL (1.8-2.4); Sodium 138 mmol/L (136-145)
[2018-05-17 08:03] LABS: Absolute Eosinophil Count 0.72 k/cumm (0.0-0.7); Absolute Lymphocyte Count 2.04 k/cumm (1.2-3.4); Absolute Monocyte Count 0.84 k/cumm (0.11-0.7); Absolute Neutrophil Count 8.29 k/cumm (1.2-6.7); Diff Comment Manual Differential
[2018-05-17 08:04] LABS: Anisocytosis 1+; Basophilic Stippling Present; Hypochromasia 2+; Polychromasia Present
[2018-05-17 08:29] LABS: ESR > 120 MM/HR (0-30)
[2018-05-17] MEDS: Acetaminophen 325 MG TAB PO (08:58)
[2018-05-17] MEDS: Furosemide 40 MG TAB PO ×2 (08:58→15:39)
[2018-05-17] MEDS: Magnesium Chloride 64 MG TABCR PO (08:58)
[2018-05-17] MEDS: Colchicine 0.6 MG TAB PO (08:58)
[2018-05-17] MEDS: Allopurinol 100 MG TAB PO (08:58)
[2018-05-17] MEDS: traMADol 50 MG TAB PO (08:58)
[2018-05-17] MEDS: Metoprolol CR 100 MG TABCR PO (08:58)
[2018-05-17] MEDS: Pantoprazole 40 MG TABCR PO (08:58)
[2018-05-17] MEDS: Normal Saline Flush 10 ML SYR IVP (08:59)
--- NOTE | 2018-05-17 09:54 | PT.INTREAT ---
Date of service: 05/17/18 Time of Service: 09:54 PT Notes Inpatient Physical Therapy Treatment Note Date: 05/17/18 PRECAUTIONS: Fall SUBJECTIVE: Maliha reports that she walked to and from the toilet during the night x3. She states that she is experiencing significant pain in B feet this morning. OBJECTIVE: PAIN: Patient c/o B foot pain with weight bearing BED MOBILITY/TRANSFERS Supine-sit: I with HOB flat Sit-supine: I with HOB flat Sit-stand: SBA (performed x4) Stand-sit: SBA (performed x4) Chair-bed: SBA GAIT Assistive Device: FWW Weight bearing: WBAT B Assist: SBA Distance: 5' +15' +25' +5' Deviation: Seated rest x3, painful THEREX: Patient perform bridging exercise x10. Patient reports independent completion of upper extremity and lower extremity strengthening program. ASSESSMENT: Patient continues to be limited by bilateral foot pain with weight bearing. She requires frequent rests due to the pain in her feet. Patient was able to demonstrate independence with bed mobility today. Patient would benefit from continued strengthening as well as gait and transfer training to improve ability to perform functional daily tasks. PLAN: Continue with PTs POC TREATMENT CODE/TIME: 25 minutes; TA x2
[2018-05-17] MEDS: Betamet Acet/Betamet Na Ph Inj. 30 MG/5 ML IJ (10:25)
--- NOTE | 2018-05-17 10:29 | W.PM.PROGNOT ---
Subjective Patient reports: feels better and pain is less Interval history since last seen: Vitals BP 158/69 pulse 61 respiration 18 temp 36.5 and O2 sat at room air is 96% Morning labs show WBCs at 12.01 RBCs 2.86 hemoglobin 7.9 hematocrit 25.7 platelets are 696 neutrophils 8.29 absolute monocytes 0.84 ESR is greater than 120 BUN 57 creatinine 1.80 glucose 102 CRP is 15.39 Exam Narrative Exam Narrative: Maliha is seen in her room she was sitting in her chair she states she is feeling much better she still having pain left foot more than right. He did have her left foot radiograph both foot and ankle I reviewed the x-rays no fractures were identified, I agree with the radiologic interpretation by the radiologist. Examination of the left foot she still has significant pain and tenderness with localized warmth and some effusion within the subtalar joint. The ankle joint is tender but much less so and no fluid was palpated. Soft tissues surrounding the left ankle appeared grossly benign with muscle groups being 5 out of 5 although deconditioned. No deep abscesses or fluid accumulations were noted. Pain with palpation of the left subtalar joint was significant and I will graded as a +5/10. The right foot continues to have tenderness in the plantar medial aspect of the heel and medial slip of plantar fascia consistent with plantar fasciitis with pain being low now graded as a 2/10. Impressions: Left subtalar joint effusion probable gout Right plantar fasciitis Plan: I received the patient's permission to aspirate the left subtalar joint and infuse Celestone Soluspan for relief of pain and inflammation. Potential risks were discussed including joint sepsis persistent pain. Procedure note: The region over the left subtalar joint was anesthetized with 3 cc of 1% lidocaine with epinephrine. ChloraPrep prep was performed. An cc syringe and an 18-gauge needle I entered the subtalar joint from a lateral approach. I was able to get some material out of the subtalar joint it appeared clear there was some whitish material possibly consistent with uric acid. This was sent in a red top tube to micro for crystal analysis. I then infused the joint with 1 cc of Celestone Soluspan and 2 cc 1% lidocaine with epinephrine. Pressure dressing was applied followed by a Band-Aid covering. She can use warm compresses over the injected joint for relief of pain as needed. Reviewed stretching exercises for the right plantar fasciitis. Ice is effective in managing that discomfort. From a podiatric perspective she can certainly go home if her medical management indicates she is good to go. I will be happy to see her in the office on a as needed basis. Objective Objective Clinical Data: Abnormal lab results 05/16/18 05/16/18 05/17/18 Range/Units 14:35 16:35 06:55 WBC (4.4-10.8) k/cumm RBC (4.00-5.20) m/cumm Hgb 8.4 L (12.0-15.5) g/dL Hct 26.8 L (36.0-46.0) % MCHC (32.0-36.0) g/dL RDW (11.7-14.6) % Plt Count (130-400) x1000/uL Absolute Neutrophils (1.2-6.7) k/cumm Absolute Monocytes (0.11-0.7) k/cumm Absolute Eosinophils (0.0-0.7) k/cumm ESR (0-30) MM/HR BUN 57 H (7-18) mg/dL Creatinine 1.80 H (0.55-1.02) mg/dL Glucose 102 H (70-100) mg/dL C-Reactive Protein 15.39 H (0.0-0.3) mg/dL Urine Protein 30 H (Negative) mg/dL Urine Blood Moderate H (Negative) Urine RBC >50 H (0-2) 05/17/18 Range/Units 06:55 WBC 12.01 H (4.4-10.8) k/cumm RBC 2.86 L (4.00-5.20) m/cumm Hgb 7.9 L (12.0-15.5) g/dL Hct 25.7 L (36.0-46.0) % MCHC 30.7 L (32.0-36.0) g/dL RDW 15.6 H (11.7-14.6) % Plt Count 696 H (130-400) x1000/uL Absolute Neutrophils 8.29 H (1.2-6.7) k/cumm Absolute Monocytes 0.84 H (0.11-0.7) k/cumm Absolute Eosinophils 0.72 H (0.0-0.7) k/cumm ESR > 120 H (0-30) MM/HR BUN (7-18) mg/dL Creatinine (0.55-1.02) mg/dL Glucose (70-100) mg/dL C-Reactive Protein (0.0-0.3) mg/dL Urine Protein (Negative) mg/dL Urine Blood (Negative) Urine RBC (0-2) Vital Signs Temperature 36.5 C 05/17/18 04:26 Temperature Source Tympanic 05/17/18 04:26 Pulse 61 05/17/18 04:26 Pulse Rhythm Regular 05/17/18 04:15 Pulse 69 05/10/18 16:50 Respiratory Rate 18 05/17/18 04:26 Respiratory Effort Splinting 05/17/18 04:15 Respiratory Depth Normal 05/16/18 15:55 Respiratory Pattern Normal 05/17/18 04:15 Blood Pressure 158/69 H 05/17/18 04:26 Blood Pressure Mean 67 05/10/18 16:47 Blood Pressure Position Sitting 05/10/18 14:51 Pulse Oximetry 96 05/17/18 04:26 Oxygen Delivery Method Cpap 05/17/18 04:26 Oxygen Flow Rate 2 05/17/18 04:26 Fraction of Inspired Oxygen (FIO2) 30 05/14/18 01:08 Pain Level 8 05/17/18 08:58 Comment 05/17/18 04:26 Intake & Output 05/16/18 05/17/18 05/17/18 18:59 06:59 18:59 Intake Total 480 / 480 460 / 460 Output Total 1350 / 1350 Balance -1340 / -1340 480 / 480 460 / 460 Weight 118.8 kg Intake: IV Oral 480 / 480 460 / 460 Output: Urine 1350 / 1350 Other: Urine Color Yellow Yellow Urine Appearance Clear Clear Stool Size Large Large Stool Characteristics Soft Soft Formed Brown Voiding Methods Toilet Toilet Laboratory Results WBC 12.01 k/cumm (4.4-10.8) H 05/17/18 06:55 RBC 2.86 m/cumm (4.00-5.20) L 05/17/18 06:55 Hgb 7.9 g/dL (12.0-15.5) L 05/17/18 06:55 Hct 25.7 % (36.0-46.0) L 05/17/18 06:55 MCV 89.9 fL (80-95) 05/17/18 06:55 MCH 27.6 pg (27.0-33.0) 05/17/18 06:55 MCHC 30.7 g/dL (32.0-36.0) L 05/17/18 06:55 RDW 15.6 % (11.7-14.6) H 05/17/18 06:55 Plt Count 696 x1000/uL (130-400) H 05/17/18 06:55 MPV 8.6 fL (8.0-11.0) 05/17/18 06:55 Immature Gran % See Differential 05/17/18 06:55 Neutrophils % 68.0 05/17/18 06:55 Lymphocytes % 17.0 05/17/18 06:55 Monocytes % 7.0 05/17/18 06:55 Eosinophils % 6.0 05/17/18 06:55 Basophils % 0.0 05/17/18 06:55 Absolute Neutrophils 8.29 k/cumm (1.2-6.7) H 05/17/18 06:55 Band Neutrophils 1.0 % 05/17/18 06:55 Absolute Lymphocytes 2.04 k/cumm (1.2-3.4) 05/17/18 06:55 Absolute Monocytes 0.84 k/cumm (0.11-0.7) H 05/17/18 06:55 Absolute Eosinophils 0.72 k/cumm (0.0-0.7) H 05/17/18 06:55 Absolute Basophils 0.00 k/cumm (0.0-0.2) 05/17/18 06:55 Metamyelocytes 1.0 % 05/17/18 06:55 Nucleated RBCs 3 /100WBC 05/15/18 07:52 Differential Comment Manual differential 05/17/18 06:55 RBC Morphology See below 05/17/18 06:55 Polychromasia Present 05/17/18 06:55 Hypochromasia 2+ 05/17/18 06:55 Poikilocytosis 1+ 05/14/18 11:10 Basophilic Stippling Present 05/17/18 06:55 Anisocytosis 1+ 10/10/18 06:55 ESR > 120 MM/HR (0-30) H 05/17/18 06:55 PT 17.6 sec (9.3-10.8) H 05/10/18 15:00 INR 1.8 (1.0-3.5) 05/10/18 15:00 APTT 26.8 sec (21.0-31.4) 05/10/18 15:00 D-Dimer 1712 ng/mlFEU (<500) H 05/10/18 15:00 Sample Site Right radial 05/10/18 15:15 pCO2 42 mmHg (34-47) 05/10/18 15:15 pO2 252 mmHg (83-108) H 05/10/18 15:15 O2 Saturation > 99 % (94-98) H 05/10/18 15:15 ABG pH 7.28 (7.35-7.45) L 05/10/18 15:15 ABG HCO3 20 mmol/L (22-28) L 05/10/18 15:15 ABG Total CO2 mmol/L (22-29) 05/10/18 15:15 ABG Base Excess mmol/L (-3-3) 05/10/18 15:15 Oxygen Liter Flow Niv L 05/10/18 15:15 FiO2 50 % 05/10/18 15:15 Sodium 138 mmol/L (136-145) 05/17/18 06:55 Potassium 4.0 mmol/L (3.5-5.1) 05/17/18 06:55 Chloride 102 mmol/L (98-107) 05/17/18 06:55 Carbon Dioxide 25.1 mmol/L (21.0-32.0) 05/17/18 06:55 Anion Gap 10.9 mmol/L (3-11) 05/17/18 06:55 BUN 57 mg/dL (7-18) H 05/17/18 06:55 Creatinine 1.80 mg/dL (0.55-1.02) H 05/17/18 06:55 Estimated GFR/1.73 m2 27.74 (mL/min/1.73m2) 05/17/18 06:55 Glucose 102 mg/dL (70-100) H 05/17/18 06:55 Uric Acid 10.9 mg/dL (2.6-6.0) H 05/13/18 06:50 Calcium 9.4 mg/dL (8.5-10.1) 05/17/18 06:55 Magnesium 2.4 mg/dL (1.8-2.4) 05/17/18 06:55 Total Bilirubin 0.4 mg/dL (0.2-1.0) 05/10/18 15:15 Conjugated Bilirubin 0.09 mg/dL (0.00-0.20) 05/10/18 15:15 AST 33 U/L (15-37) 05/10/18 15:15 ALT 36 U/L (12-78) 05/10/18 15:15 Alkaline Phosphatase 65 U/L (46-116) 05/10/18 15:15 Troponin I < 0.02 ng/mL (0.00-0.06) 05/10/18 23:47 C-Reactive Protein 15.39 mg/dL (0.0-0.3) H 05/17/18 06:55 NT-Pro-B Natriuret Pep 1112 pg/mL (-299) H 05/10/18 15:15 Total Protein 7.8 g/dL (6.4-8.2) 05/10/18 15:15 Albumin 3.0 g/dL (3.4-5.0) L 05/10/18 15:15 Lipase 229 U/L (73-393) 05/10/18 15:15 Urine Color Yellow (Yellow) 05/16/18 14:35 Urine Clarity Sl cloudy 05/16/18 14:35 Urine pH 5.5 (5-8) 05/16/18 14:35 Ur Specific [place] 1.020 (1.005-1.025) 05/16/18 14:35 Urine Protein 30 mg/dL (Negative) H 05/16/18 14:35 Urine Ketones Negative mg/dL (Negative) 05/16/18 14:35 Urine Blood Moderate (Negative) H 05/16/18 14:35 Urine Nitrite Negative (Negative) 05/16/18 14:35 Urine Bilirubin Negative (Negative) 05/16/18 14:35 Urine Urobilinogen 0.2 EU/dL (Up TO 0.2) 05/16/18 14:35 Ur Leukocyte Esterase Negative (Negative) 05/16/18 14:35 Urine RBC >50 (0-2) H 05/16/18 14:35 Urine WBC 3-5 HPF (0-5) 05/16/18 14:35 Ur Epithelial Cells Rare HPF (Negative) 05/16/18 14:35 Urine Crystals Negative HPF (Negative) 05/16/18 14:35 Urine Bacteria Few HPF (Negative) 05/16/18 14:35 Urine Casts Negative LPF (Negative) 05/16/18 14:35 Urine Mucus Trace (Negative) 05/16/18 14:35 Urine Other Few renal (Negative) 05/12/18 13:04 Ur Culture Indicated? C&s done as ordered 05/16/18 14:35 Urine Glucose Negative mg/dL (Negative) 05/16/18 14:35 Path Cons Comment 05/15/18 07:52
[2018-05-17 10:34] LABS: Lyme Ab w Rflx to Lyme Confirm Negative
--- NOTE | 2018-05-17 11:42 | PT.INTREAT ---
Date of service: 05/17/18 Time of Service: 11:42 PT Notes Inpatient Physical Therapy Treatment Note Date: 05/17/18 PRECAUTIONS: Fall SUBJECTIVE: Maliha states that she is feeling a little better, but is still concerned about how she will function at home. OBJECTIVE: PAIN: Patient complained of pain in bilateral feet, L > R BED MOBILITY/TRANSFERS Sit-stand: SBA (performed x3) Stand-sit: SBA (performed x3) GAIT Assistive Device: FWW Weight bearing: WBAT B Assist: SBA Distance: 30' x4 Deviation: Seated rest x1 THEREX: Patient performed several standing lower extremity strengthening exercises, as per flow sheet. Patient complains of discomfort in bilateral feet in standing position. ASSESSMENT: Patient tolerated session with c/o pain in B feet with weight bearing. Patient was able to tolerate a progression in gait distance, requiring seated rest due to pain in feet. PLAN: Continue with PTs POC TREATMENT CODE/TIME: 30 minutes; TA/TP
[2018-05-17 11:48] LABS: Haptoglobin 511 mg/dL (32-197); Rheumatoid Factor 15 IU/mL (<12.5)
[2018-05-17 12:00] VITALS: BP 119/53; PULSE 66; RESP 20; TEMP 36.9; O2SAT 93
--- NOTE | 2018-05-17 13:43 | PDOC.CMDIS ---
- If Service Date Differs Date of service: 05/17/18 Time of Service: 13:43 LACE Index Scoring Tool - Questions: Acuity (Admit via E.D.?): Yes Comorbidities: Diabetes w/o Complication, Congestive Heart Failure E.D. Visits: 3 Care Management Discharge Reason for Hospitalization: CHF Discharge Plan: Maliha will be discharged home today new home health services for PT. CM contacted home health and provided referral to coding coordinator. Maliha has requested that CM not contact her daughter in law to provide update related to discharge. Pt reports that she will relay the information to her. Maliha will follow up with after discharge and her primary care provider. Patient/Family Education Needs: Discharge education, limitaitons and follow up plan of care including self management and ask me three education. Services Needed at Discharge: Home Health Care Services, Physical Therapy
--- NOTE | 2018-05-17 13:58 | CMDISCH_ITS ---
- If Service Date Differs Date of service: 05/17/18 Time of Service: 13:43 LACE Index Scoring Tool - Questions: Acuity (Admit via E.D.?): Yes Comorbidities: Diabetes w/o Complication, Congestive Heart Failure E.D. Visits: 3 Care Management Discharge Reason for Hospitalization: CHF Discharge Plan: Maliha will be discharged home today new home health services for PT. CM contacted home health and provided referral to health and wellness coordinator. Maliha has requested that CM not contact her daughter in law to provide update related to discharge. Pt reports that she will relay the information to her. Maliha will follow up with after discharge and her primary care provider. Patient/Family Education Needs: Discharge education, limitaitons and follow up plan of care including self management and ask me three education. Services Needed at Discharge: Home Health Care Services, Physical Therapy
[2018-05-17 15:43] VITALS: BP 127/69; PULSE 65; TEMP 37; O2SAT 92
[2018-05-17] MEDS: Insulin Aspart 300 UNITS/3 ML PEN SC (17:26)
--- NOTE | 2018-05-17 17:36 | DSE_ITS ---
Date of service: 05/17/18 Time of Service: 17:31 DS: Diagnosis Discharge Diagnosis (1) Foot pain, bilateral: Status: Acute (2) Anemia due to gastrointestinal blood loss: Status: Acute (3) Aortic stenosis: Status: Chronic (4) Congestive heart failure (CHF): Status: Resolved Discharge Plan Disposition Patient Disposition: HOME Condition: Fair Discharge Details Chief Complaint: RespSymp Reason For Visit: CHF, DIASTOLIC, RECENT GI BLEED Admit Date/Time: 05/10/18 16:16 Admit Provider: Joshua Chow Attending Provider: Joshua Chow Primary Care Provider: Cesar Nye ED Provider: Mayelin Berger Hospital Course Hospital Course: Ms Iqbal is a 72 year old female with PMHx of recent admission for upper GI bleeding from gastric ulcers, requiring transfusions of 5 units of pRBC's, chronic diastolic CHF, Afib, no longer on anticoagulation, LAI and Osteoarthritis who was readdmited to the hospital on 05/10/18 with acute on chronic diastolic CHF. She improved with diuresis, and it is thought that this fluid overload happened as a result of aggressive IV hydration as well as blood transfusions on the previous admission. The patient did not require blood transfusion on this admission. However, the new issue that developed on this admission was bilateral foot pain, left worse than right. The patient was treated with a short course of prednisone, which we swtiched over to combination of colchicine and allopurinol, with some improvement. The patient also had an intraarticular injection in Left subtalar joint by Dr Love with significant improvement in symptoms. The patient is now able to ambulate and is returning home. She will continue on colchicine until complete resolution of her symptoms. Home Meds and New Rx's Prescriptions: New acetaminophen [Tylenol] 325 mg Tablet 325 - 650 mg PO Q4H PRN PRNQty: 30 RF: 0 allopurinol 100 mg Tablet 100 mg PO DAILY Qty: 30 RF: 0 colchicine [Colcrys] 0.6 mg Tablet 0.6 mg PO BID Qty: 14 RF: 0 tramadol 50 mg Tablet 50 mg PO Q12H PRN PRNQty: 10 RF: 0 ferrous sulfate 325 mg (65 mg iron) Tablet 325 mg PO BID Qty: 60 RF: 0 docusate sodium [Colace] 100 mg Capsule 100 mg PO BID Qty: 60 RF: 0 furosemide [Lasix] 20 mg tablet 20 mg PO BID Qty: 10 RF: 0 Continue albuterol sulfate 90 mcg/actuation HFA aerosol inhaler 2 puff IH QID PRNRF: 0 dofetilide 500 mcg capsule 500 mcg PO Q12H RF: 0 levothyroxine 25 mcg capsule 25 mcg PO DAILY RF: 0 magnesium chloride 64 mg tablet,delayed release (DR/EC) 64 mg PO BID RF: 0 metformin 500 mg tablet 500 mg PO BID RF: 0 metoprolol succinate 100 mg tablet extended release 24 hr 100 mg PO DAILY RF: 0 simvastatin 10 mg tablet 10 mg PO QPM RF: 0 sucralfate 1 gram Tablet 1 g PO Q6H Qty: 120 RF: 1 pantoprazole 40 mg Tablet,Delayed Release (Dr/Ec) 40 mg PO BID@0730,2000 Qty: 120 RF: 1 Discontinued furosemide 20 mg Tablet 10 mg PO BID RF: 0 No Action blood sugar diagnostic [Accu-Chek Vickie Plus test strp] strip .ROUTE .MEDSUPPLY Qty: 20 RF: 0 blood sugar diagnostic strip .ROUTE .MEDSUPPLY Qty: 20 RF: 0 Discharge Instructions Instructions: Allopurinol (By mouth), Colchicine (By mouth), Tramadol (By mouth ), Heart Failure (DC), Gout (DC) Additional Instructions: Return to the hospital if your pain is not controlled at home, if you have any dizziness, chest pain, shortness of breath, or bleeding. Referrals: Cesar Nye [Primary Care Provider] - (5-7 days) Morgan Love DPM [[facility] STAFF PHYSICIAN] - (1-2 weeks) Activity:: Activity as Tolerated Equipment/Supplies:: No Equipment Needed Diet:: Low Sodium Discharge Orders Discharge Orders: Discharge Order (Routine); Ordered 05/17/18 Ordered By: Lori Yuan Exam Narrative Exam Narrative: General: w obese female, not in acute distress, sitting in a chair, comfortable Neurological: alert and oriented x3, no focal deficits Psychiatric: appropriate speech pattern and content, appropriate affect Skin: no rashes/erythema on feet HEENT: normocephalic, extraocular movements are intact, moist mucous membranes, no goiter or JVD Cardiovascular: regularly regular rhythm, holosystolic ejection murmur Pulmonary: clear to auscultation bilaterally Gastrointestinal: Abdomen is soft, nontender, nondistended. No organomegaly or ascites. Extremities: Bilateral feet with 1+ edema; less tenderness in the B feet DS: Data Vitals/I&O Vitals and I&O: Vital Signs Temperature 37.0 C 05/17/18 15:43 Temperature Source Tympanic 05/17/18 15:43 Pulse 65 05/17/18 15:43 Pulse Rhythm Regular 05/17/18 15:47 Pulse 69 05/10/18 16:50 Respiratory Rate 20 05/17/18 12:00 Respiratory Effort Non-Labored 05/17/18 15:47 Respiratory Depth Normal 05/17/18 15:47 Respiratory Pattern Normal 05/17/18 15:47 Blood Pressure 127/69 05/17/18 15:43 Blood Pressure Mean 67 05/10/18 16:47 Blood Pressure Position Sitting 05/10/18 14:51 Pulse Oximetry 92 L 05/17/18 15:43 Oxygen Delivery Method Room Air 05/17/18 15:43 Oxygen Flow Rate 0 05/17/18 15:43 Fraction of Inspired Oxygen (FIO2) 20 05/17/18 15:43 Pain Level 3 05/17/18 15:43 Comment 05/17/18 04:26 Intake & Output 05/16/18 05/17/18 05/17/18 23:59 11:59 23:59 Intake Total 480 / 480 460 / 460 250 / 250 Output Total 1000 / 1000 Balance -520 / -520 460 / 460 250 / 250 Weight 118.8 kg Intake: Oral 480 / 480 460 / 460 250 / 250 Output: Urine 1000 / 1000 Other: Urine Color Yellow Yellow Yellow Urine Appearance Clear Clear Clear Urine Odor Normal Normal Stool Size Large Stool Characteristics Soft Voiding Methods Toilet Toilet Toilet Incontinent Completed studies during hospitalization [Text1]: CXR 05/11/18: There is a poor inspiration. The heart appears enlarged. There is prominence of the pulmonary vasculature and bilateral pulmonary infiltrates noted. The findings raise the question of congestive heart failure. XR R foot 05/11/18: 1. No acute fracture or dislocation. 2. Chronic changes of the right foot, which appear stable. US venous BLE's: : No evidence of a lower extremity deep venous thrombus. XR L foot and L ankle 05/16/18: 1. Degenerative changes of the left foot with a bunion deformity. 2. Osseous density adjacent to the base of the 4th toe. It appears well corticated and likely reflects old injury. No definite acute fracture is identified. Please correlate clinically. Labs on day of discharge: Labs from last 24 hours 05/17/18 05/17/18 05/17/18 10:26 06:55 06:55 WBC 12.01 H RBC 2.86 L Hgb 7.9 L Hct 25.7 L MCV 89.9 MCH 27.6 MCHC 30.7 L RDW 15.6 H Plt Count 696 H MPV 8.6 Immature Gran % See Differential Neutrophils % 68.0 Lymphocytes % 17.0 Monocytes % 7.0 Eosinophils % 6.0 Basophils % 0.0 Absolute Neutrophils 8.29 H Band Neutrophils 1.0 Absolute Lymphocytes 2.04 Absolute Monocytes 0.84 H Absolute Eosinophils 0.72 H Absolute Basophils 0.00 Metamyelocytes 1.0 Differential Comment Manual differential RBC Morphology See below Polychromasia Present Hypochromasia 2+ Basophilic Stippling Present Anisocytosis 1+ ESR > 120 H Sodium 138 Potassium 4.0 Chloride 102 Carbon Dioxide 25.1 Anion Gap 10.9 BUN 57 H Creatinine 1.80 H Estimated GFR/1.73 m2 27.74 Glucose 102 H Calcium 9.4 Magnesium 2.4 C-Reactive Protein 15.39 H Fluid Crystals Fluid Crystal Source L foot Fl Crystal Path Review Pending Preliminary micro results at discharge 05/16/18 14:35 Urine Culture - Preliminary Urine - Cath Moore Indwelling
--- NOTE | 2018-05-18 07:31 | PT.INDS ---
Date of service: 05/18/18 Time of Service: 07:31 PT Notes Inpatient Physical Therapy Discharge Summary Date: 05/18/18 Dates of Service: 05/13/18-05/17/18 SUBJECTIVE: NT OBJECTIVE: 05/13/18-05/17/18 Bed Mobility/Transfers: supine-sit: independent Sit-supine: independent Sit-stand: SBA with FWW Stand-sit: SBA Bed-chair: SBA with FWW Chair-bed: SBA with FWW Gait: FWW, SBA 30ftx4 Balance: Static Sitting: normal Dynamic Sitting: normal Static Standing: fair Dynamic Standing: fair Assessment: Pt is a 72yr old female admitted with cervical pain, gastrointestinal bleed and anemia in setting of gastric ulcers, chronic anemia, obesity, diabetes mellitus type II, total knee replacement, obstructive sleep apnea uses CPAP, atrial fibrillation, depression. Patient was seen for 8 PT visits. Progressed from modA standing trasnfers to SBA, from modA gait with FWW 30 seconds to SBA gait with FWW 30ftx4. Pt limited in mobility by ankle and foot pain. Pt was discharged to home with , home PT recommended for continued strengthening and mobility training. Goals: Goals X1 week 1. Supine-Sit independent 2. Sit-Supine independent 3. Sit-Stand independent 4. Stand-Sit independent 5. Bed-Chair supervision 6. Chair-Bed supervision 7. Gait supervision with FWW 80ftx2 8. Stairs up/down 12 steps with railing and cane, SBA Pt met goals # 1, 2- recommend home PT to meet remaining goals DISCHARGE RECOMMENDATIONS: home with with FWW G Codes in the area mobility of walking and moving around: projected status GP [id number]. Discharge status (if discharging) GP [id number] MARLENE Dias PT
--- NOTE | 2018-05-18 07:35 | INDS_ITS ---
Date of service: 05/18/18 Time of Service: 07:31 PT Notes Inpatient Physical Therapy Discharge Summary Date: 05/18/18 Dates of Service: 05/13/18-05/17/18 SUBJECTIVE: NT OBJECTIVE: 05/13/18-05/17/18 Bed Mobility/Transfers: supine-sit: independent Sit-supine: independent Sit-stand: SBA with FWW Stand-sit: SBA Bed-chair: SBA with FWW Chair-bed: SBA with FWW Gait: FWW, SBA 30ftx4 Balance: Static Sitting: normal Dynamic Sitting: normal Static Standing: fair Dynamic Standing: fair Assessment: Pt is a 72yr old female admitted with cervical pain, gastrointestinal bleed and anemia in setting of gastric ulcers, chronic anemia, obesity, diabetes mellitus type II, total knee replacement, obstructive sleep apnea uses CPAP, atrial fibrillation, depression. Patient was seen for 8 PT visits. Progressed from modA standing trasnfers to SBA , from modA gait with FWW 30 seconds to SBA gait with FWW 30ftx4. Pt limited in mobility by ankle and foot pain. Pt was discharged to home with , home PT recommended for continued strengthening and mobility training. Goals: Goals X1 week 1. Supine-Sit independent 2. Sit-Supine independent 3. Sit-Stand independent 4. Stand-Sit independent 5. Bed-Chair supervision 6. Chair-Bed supervision 7. Gait supervision with FWW 80ftx2 8. Stairs up/down 12 steps with railing and cane, SBA Pt met goals # 1, 2- recommend home PT to meet remaining goals DISCHARGE RECOMMENDATIONS: home with with FWW G Codes in the area mobility of walking and moving around: projected status GP [id number]. Discharge status (if discharging) GP [id number] MARLENE Dias PT
--- NOTE | 2018-05-18 13:32 | HHF2F_ITS ---
1. Encounter Date and Reason I certify that TIARA MUÑOZ was seen by Lori Yuan on 05/18/18 and that I had a [id number] encounter with this patient that meets the physician face to face encounter requirements. 2. Clinical Findings Supporting Skilled Need and Homebound Status I certify that home health services are medically necessary, include either intermittent long-term and/or physical/speech therapy, and that this patient is homebound in that absences from the home require considerable and taxing effort and are infrequent or of short duration, or are attributable to the need to receive medical care. [X] (a) Attached documentation from encounter provides clinical findings supporting skilled need and homebound status (including what assistance patient requires to leave the home). The encounter with the patient was in whole, or in part, for the following medical condition, which is the primary reason for home health care: CHF, DIASTOLIC, RECENT GI BLEED Physical Therapy: ambulatory dysfunction, difficulty walking post hospitalization Homebound: unable to leave home without assistance 3. Certification and Authentication I certify that I composed the above information based on my clinical judgement relating to this patient's medical condition and, if applicable, clinical findings communicated to me by the NPP or inpatient physician who performed the Home Health Referral. All further orders will be obtained through Dr Nye ( Community Based Physician - PCP)
== END 2018-05-17 18:55 | disposition home health service (06) | DRG 291 ==
LOC: ER 16:51 → MS 18:04
PROVIDERS: Family Medicine; Podiatrist; Admitting Provider Internal Medicine; Emergency Provider Physician Assistant; PCP Family Medicine; Visit Provider Internal Medicine
DX: I50.33 Acute on chronic diastolic (congestive) heart failure (principal); K27.0 Acute peptic ulcer, site unspecified, with hemorrhage; I13.0 Hypertensive heart and chronic kidney disease with heart failure and stage 1 through stage 4 chronic kidney disease, or unspecified chronic kidney disease; D62 Acute posthemorrhagic anemia; G47.33 Obstructive sleep apnea (adult) (pediatric); I48.91 Unspecified atrial fibrillation; E11.22 Type 2 diabetes mellitus with diabetic chronic kidney disease; N18.9 Chronic kidney disease, unspecified; E87.5 Hyperkalemia; M79.672 Pain in left foot; M79.671 Pain in right foot; R50.9 Fever, unspecified; I35.0 Nonrheumatic aortic (valve) stenosis; M10.9 Gout, unspecified; M72.2 Plantar fascial fibromatosis; E03.9 Hypothyroidism, unspecified
CPT/HCPCS: 36410; 36415; 36416; 80048; 80053; 80076; 82805; 82962; 83690; 85027; 85652; 87040; 93005; 94640; 96374; 97110; 97162; 97530; 99222; 99232; 99233; 99239; 99285; 36600; 71045; 73610; 73630; 81003; 81015; 83010; 83735; 83880; 84484; 84550; 85014; 85018; 85025; 85379; 85610; 85730; 86140; 86431; 86618; 87086; 89060; 93010; 93970; J0702; J1940; J1941; J7512; J7620

== ENCOUNTER 2018-05-23 20:24 | Outpatient (REF) | payer SELFPAY | END 2018-05-23 20:44 | LOC: LBN 20:24 | PROVIDERS: Visit Provider Family Medicine | DX: K92.2 Gastrointestinal hemorrhage, unspecified (principal) ==

== ENCOUNTER 2018-05-26 03:05 | Outpatient (CLI) | payer OTHER, SELFPAY ==
[2018-05-26 08:46] LABS: HCT 30.6 % (36.0-46.0); HGB 9.5 g/dL (12.0-15.5); Mean Corpuscular Hemoglobin 27.2 pg (27.0-33.0); Mean Corpuscular Volume 87.7 fL (80-95); Mean Platelet Volume 8.5 fL (8.0-11.0); RBC 3.49 m/cumm (4.00-5.20); RBC Distribution Width 16.1 % (11.7-14.6); Reticulocyte 4.1 % (0.5-2.4); White Blood Cell Count 7.88 k/cumm (4.4-10.8)
[2018-05-26 08:56] LABS: INR 1.2 (1.0-3.5); Prothrombin Time 11.7 sec (9.3-10.8)
[2018-05-26 09:06] LABS: Platelet Count 808 x1000/uL (130-400)
[2018-05-26 10:07] LABS: Iron 25 ug/dL (50-175); Total Iron Binding Capacity 401 ug/dL (250-450); Transferrin Sat 6 % (15-50)
[2018-05-26 10:17] LABS: Anion Gap 13.7 mmol/L (3-11); BUN 41 mg/dL (7-18); CO2 24.3 mmol/L (21.0-32.0); CREATININE 1.87 mg/dL (0.55-1.02); Calcium 9.4 mg/dL (8.5-10.1); Chloride 98 mmol/L (98-107); Estimated GFR 26.54 (mL/min/1.73m2); Ferritin 45 ng/mL (8-388); Glucose 166 mg/dL (70-100); Potassium 3.9 mmol/L (3.5-5.1); Sodium 136 mmol/L (136-145); TSH 1.67 uIU/mL (0.358-3.74)
== END 2018-05-26 03:25 ==
PROVIDERS: PCP Family Medicine; Visit Provider Family Medicine
DX: D64.9 Anemia, unspecified (principal); I48.91 Unspecified atrial fibrillation; Z79.01 Long term (current) use of anticoagulants; K92.2 Gastrointestinal hemorrhage, unspecified; N18.9 Chronic kidney disease, unspecified
CPT/HCPCS: 36415; 80048; 85027; 82728; 83540; 83550; 84443; 85045; 85610

== ENCOUNTER 2018-06-02 02:19 | Outpatient (CLI) | payer OTHER, SELFPAY ==
[2018-06-02 14:17] LABS: INR 1.5 (1.0-3.5); Prothrombin Time 14.1 sec (9.3-10.8)
== END 2018-06-02 02:39 ==
PROVIDERS: PCP Family Medicine; Visit Provider Family Medicine
DX: I48.91 Unspecified atrial fibrillation (principal); Z79.01 Long term (current) use of anticoagulants
CPT/HCPCS: 36415; 85610

== ENCOUNTER 2018-06-16 04:51 | Emergency (ER) | payer OTHER, SELFPAY ==
[2018-06-16 04:59] VITALS: BP 155/60; PULSE 102; RESP 18; TEMP 37.1; O2SAT 98
--- NOTE | 2018-06-16 05:04 | DI.RAD_ITS ---
SYMPTOMS/DIAGNOSIS: LEFT WRIST PAIN, PAIN IN WHOLE HAND BUT MORE IN DIGITS 4 AND 5 DOWN THROUGH THE WRIST, ? ACUTE FRACTURE VERSUS TOPHI LEFT WRIST: Three views. No acute fracture or dislocation is identified. At the 1st carpometacarpal joint, there is joint space narrowing, subchondral sclerosis and hypertrophy. There may be mild subluxation noted. Vascular calcifications are seen in the soft tissues. IMPRESSION: 1. No acute fracture or dislocation. 2. Marked degenerative changes of the 1st carpometacarpal joint. LEFT HAND: Three views. No acute fracture or dislocation is seen. Marked degenerative changes are seen of the hand, particularly involving the 1st carpometacarpal joint. Vascular calcifications are seen in the soft tissues. IMPRESSION: No acute fracture or dislocation.
[2018-06-16] MEDS: oxyCODONE 5 MG TAB 10 MG PO ×2 (05:18→06:24)
--- NOTE | 2018-06-16 05:18 | ED.GENADUL_ITS ---
Discharge Plan Disposition Patient Disposition: HOME Condition: Stable Discharge Details Chief Complaint: Cellulitis Clinical Impression: Left wrist pain, Left hand pain, Hand edema Primary Care Provider: Cesar Nye ED Provider: Mayelin Berger Home Meds and New Rx's Prescriptions: New prednisone 20 mg tablet 20 mg PO DIRECTED Qty: 12 RF: 0 oxycodone 5 mg tablet 5 mg PO Q6H PRN (Reason: pain) Qty: 10 RF: 0 Continue albuterol sulfate 90 mcg/actuation HFA aerosol inhaler 2 puff IH QID PRNRF: 0 dofetilide 500 mcg capsule 500 mcg PO Q12H RF: 0 blood sugar diagnostic [Accu-Chek Vickie Plus test strp] strip .ROUTE .MEDSUPPLY Qty: 20 RF: 0 blood sugar diagnostic strip .ROUTE .MEDSUPPLY Qty: 20 RF: 0 levothyroxine 25 mcg capsule 25 mcg PO DAILY RF: 0 magnesium chloride 64 mg tablet,delayed release (DR/EC) 64 mg PO BID RF: 0 metoprolol succinate 100 mg tablet extended release 24 hr 100 mg PO DAILY RF: 0 simvastatin 10 mg tablet 10 mg PO QPM RF: 0 allopurinol 100 mg tablet 200 mg PO DAILY Qty: 60 RF: 11 acetaminophen [Tylenol] 325 mg tablet 325 - 650 mg PO Q4H PRN PRN (Reason: pain) Qty: 30 RF: 0 sucralfate 1 gram Tablet 1 g PO Q6H Qty: 120 RF: 1 pantoprazole 40 mg Tablet,Delayed Release (Dr/Ec) 40 mg PO BID@0730,2000 Qty: 120 RF: 1 ferrous sulfate 325 mg (65 mg iron) Tablet 325 mg PO BID Qty: 60 RF: 0 docusate sodium [Colace] 100 mg Capsule 100 mg PO BID Qty: 60 RF: 0 furosemide [Lasix] 20 mg tablet 20 mg PO BID Qty: 10 RF: 0 Discharge Instructions Instructions: Arthralgia (ED), Swollen Joint (ED) Additional Instructions: Apply ice to the affected area several times daily. Take the pain medication as needed and directed. Take the steroids until finished. Follow up with the primary care doctor in 1 week for reevaluation and for referral to rheumatology. Return immediately to the emergency department with any worsening or new concerning symptoms. Discharge Data Discharge Date/Time-TO BE ENTERED AT DEPARTURE: 06/16/18 06:43 Discharge Physician: Mayelin Berger Medical Decision Making 72yo F w/ multiple medical problems who presents with left wrist and hand pain since 9 PM last night. She has a history of gout in her feet for which she is taking allopurinol but states it is not improved. She has not taken Tylenol or Motrin for pain. She denies fever or known injury. Left wrist and hand on ulnar aspect including left fourth and fifth fingers noted to have mild to moderate edema and significant tenderness to palpation. Ring noted in place on fourth finger with surrounding edema. Patient has minimal range of motion due to pain. She is neurovascularly intact. There is no erythema or warmth so gout appears less likely. However differential diagnosis includes strain, sprain, fracture, arthritis, gout, tendinitis. Patient has a history of diabetes and states her sugars have been good. Will give a dose of 10 mg oxycodone, and send for left wrist and hand x-ray. Patient has a history of chronic kidney disease and GI bleeding due to ulcers so we will hold on NSAIDs and colchicine. Ring was removed by ring cutter by nurse. 0610 -- Pt states she feels a little better. X-rays reviewed and note degenerative changes but no other acute findings. Pt feels good to go home. Discussed with patient that her symptoms could be arthritis but possibly could be gout. 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 She is instructed to call her primary care doctor to schedule a follow-up appointment for reevaluation and for referral to rheumatology. Patient instructed to return here immediately if worse. HPI General Mode of arrival: ambulatory . Date/Time Provider Initiated Documentation: 06/16/18 05:03 . Limitations to Documentation: no limitations . Information obtained by: patient . HPI Narrative: Pt is a 72yo F who presents to the ED with a complaint of left wrist and hand pain since 9 PM last night. Patient states the pain is mainly in her left hand on the ulnar aspect and fourth and fifth fingers. She is also complaining of swelling in her left hand. She denies known injury. She states she has been taking allopurinol for gout in her feet but this is not helping. She states she also had swelling in her left elbow a few weeks ago but this is since resolved. Past medical history: Gout, PUD, Aortic stenosis, Restless legs syndrome, Osteoarthritis, LAI, Hypothyroidism, HTN, HLD, DM, CHF, Afib, GERD, SVT, CKD Surgical history: Hysterectomy, Appendectomy Social history: Denies tobacco, alcohol or drugs Meds: See list Allergies: ASA, PCN, Tetracycline, Adhesive PCP: Dr. Capellan Related Data Home Medications Medication Instructions Recorded Confirmed albuterol sulfate HFA 90 2 puff IH QID PRN 04/17/18 06/16/18 mcg/actuation aerosol inhaler blood sugar diagnostic strips #20 each 04/17/18 06/07/18 blood sugar diagnostic strips #20 each 04/17/18 06/07/18 dofetilide 500 mcg capsule 500 mcg PO Q12H 04/17/18 06/16/18 levothyroxine 25 mcg capsule 25 mcg PO DAILY 04/17/18 06/16/18 magnesium 64 mg (magnesium 64 mg PO BID tab 04/17/18 06/16/18 chloride) tablet,delayed release metoprolol succinate ER 100 mg 100 mg PO DAILY 04/17/18 06/16/18 tablet,extended release 24 hr simvastatin 10 mg tablet 10 mg PO QPM 04/17/18 06/16/18 pantoprazole 40 mg PO BID@0730,1999 #120 tab 05/10/18 06/16/18 sucralfate 1 g PO Q6H #120 tab 05/10/18 06/16/18 docusate sodium [Colace] 100 mg PO BID #60 cap 05/17/18 06/16/18 ferrous sulfate 325 mg PO BID #60 tab 05/17/18 06/16/18 furosemide [Lasix] 20 mg PO BID #10 tab 05/17/18 06/16/18 acetaminophen 325 mg tablet 325 - 650 mg PO Q4H PRN PRN #30 tab 05/24/18 allopurinol 100 mg tablet 200 mg PO DAILY #60 tab 06/07/18 06/16/18 oxycodone 5 mg PO Q6H PRN #10 tab 06/16/18 prednisone 20 mg PO DIRECTED #12 tab 06/16/18 Previous Rx's Medication Instructions Recorded pantoprazole 40 mg PO BID@0730,1999 #120 tab 05/10/18 sucralfate 1 g PO Q6H #120 tab 05/10/18 docusate sodium [Colace] 100 mg PO BID #60 cap 05/17/18 ferrous sulfate 325 mg PO BID #60 tab 05/17/18 furosemide [Lasix] 20 mg PO BID #10 tab 05/17/18 acetaminophen 325 mg tablet 325 - 650 mg PO Q4H PRN PRN #30 tab 05/24/18 allopurinol 100 mg tablet 200 mg PO DAILY #60 tab 06/07/18 oxycodone 5 mg PO Q6H PRN #10 tab 06/16/18 prednisone 20 mg PO DIRECTED #12 tab 06/16/18 Allergies Allergy/AdvReac Type Severity Reaction Status Date / Time aspirin Allergy Hives Unverified 06/16/18 05:05 Penicillins Allergy Unverified 06/16/18 05:05 tetracycline Allergy Unverified 06/16/18 05:05 adhesive AdvReac Intermediate Topical Unverified 06/16/18 05:05 Irritation General Stated Complaint: Cellulitis BROOKE: 4 Review of Systems Review of Systems All systems reviewed & are unremarkable except as noted in HPI and below Constitutional Reports as per HPI, Denies chills and Denies fever(s) Eyes Denies blurry vision ENT Denies dizziness, Denies sore throat and Denies throat swelling Cardiovascular Denies chest pain and Denies dyspnea Respiratory Denies dyspnea Gastrointestinal Denies abdominal pain, Denies diarrhea and Denies vomiting Genitourinary Denies hematuria and Denies dysuria Musculoskeletal Denies back pain, Reports arthralgias, Reports joint swelling and Denies numbness Integumentary/Breasts Denies lesions and Denies rash Neurologic Denies dizziness and Denies numbness Allergic/Immunologic Denies throat swelling PFSH Family History Mother Thoracic aneurysm, ruptured Personal history of malignant neoplasm Father Heart disease Myocardial infarction Cerebrovascular accident Grandfather Heart disease Cerebrovascular accident Grandfather Heart disease Grandmother Heart disease Grandmother Personal history of malignant neoplasm Medical History Hyperkalemia (Acute) GI bleeding (Acute) Diverticulitis (Chronic) Diabetes type 2, controlled (Chronic) Hypothyroid (Chronic) Atrial fibrillation (Chronic) Aortic stenosis, moderate (Chronic) Social History household members: other details: 5 current occupational status: employed 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 frequency: 1-2 times per week duration: 45-60 minutes/day Smoking/Tobacco Use Status: Former Tobacco Use how long ago did patient quit smokin alcohol intake: never Surgical History History of appendectomy (Chronic) H/O hysterectomy for benign disease (Chronic) Replacement of total knee joint (~12/2007) Sigmoidoscopy (~08/2009) Abdominal hysterectomy Bilateral salpingectomy with oophorectomy Appendectomy Recurrent major depression in partial remission (~10/2012) Exam Const General: cooperative, healthy appearing and uncomfortable Orientation: alert, awake and oriented x3 HENMT Head: normal to inspection Mouth: oral mucosae normal Eyes General: appearance normal, both eyes and all related structures Neck Neck: normal visual inspection Resp Effort & Inspection: normal respiratory effort and able to speak in complete sentences Cardio Rate: regular rate Skin General skin exam: no rashes or lesions noted Neuro General: alert, awake and oriented x3 Motor: muscle tone normal throughout Extrem Left upper extremity: wrist (Tenderness to palpation along the ulnar aspect and pain with range of motion including supination, pronation, flexion and extension. No left snuffbox tenderness. No deformity per) and hand ( Tenderness to palpation left dorsal hand around fourth and fifth metacarpal. Tenderness to palpation of all fingers, worse in fourth and fifth fingers. There is moderate edema noted in left fourth and fifth fingers. Small wedding band noted on fourth finger with surrounding edema.) Other: Left radial pulse intact. Cap refill less than 2 seconds. Psych Appearance: grossly normal Affect: normal affect Course Vital Signs Temperature 98.7 F 06/16/18 04:59 Pulse 102 H 06/16/18 04:59 Respiratory Rate 18 06/16/18 04:59 Blood Pressure 155/60 H 06/16/18 04:59 Pulse Oximetry 98 06/16/18 04:59 Temperature 98.7 F 06/16/18 04:59 Temperature Source Temporal Artery Scan 06/16/18 04:59 Pulse 102 H 06/16/18 04:59 Respiratory Rate 18 06/16/18 04:59 Respiratory Effort 06/16/18 04:59 Blood Pressure 155/60 H 06/16/18 04:59 Pulse Oximetry 98 06/16/18 04:59 Oxygen Delivery Method Room Air 06/16/18 04:59 Oxygen Flow Rate 0 06/16/18 04:59 Pain Level 10 06/16/18 04:59
[2018-06-16] MEDS: predniSONE 20 MG TAB 60 MG PO (05:34)
--- NOTE | 2018-06-16 05:38 | DI.VRAD_ITS ---
EXAM: XR Left Hand Complete, 3 or More Views CLINICAL HISTORY: 72 years old, female; Pain; Finger(s) and hand and wrist; Left; Patient HX: Pain in whole hand but more digit 4 and 5 down through wrist. Pt states no fall or prior injury TECHNIQUE: Frontal, lateral and oblique views of the left hand. COMPARISON: No relevant prior studies available. FINDINGS: Bones/joints: Degenerative change first carpometacarpal joint and minimally the distal interphalangeal joints. No acute fracture. No dislocation. Soft tissues: Unremarkable. No radiopaque foreign body. IMPRESSION: No acute findings. Dictated and Authenticated by: Gurpreet Garcia MD. Ordering:NETTA SIMPSON MD
--- NOTE | 2018-06-16 05:39 | DI.VRAD_ITS ---
EXAM: XR Left Wrist Complete, 3 or More Views CLINICAL HISTORY: 72 years old, female; Pain; Finger(s) and hand and wrist; Left; Patient HX: Pain in whole hand but more digit 4 and 5 down through wrist. Pt states no fall or prior injury TECHNIQUE: Frontal, lateral and oblique views of the left wrist. COMPARISON: CR XR hand LT complete 06/16/2018 5:08 AM FINDINGS: Bones/joints: Degenerative change of the first carpometacarpal joint. No acute fracture. No dislocation. Soft tissues: Atherosclerotic calcifications.. No radiopaque foreign body. IMPRESSION: No acute findings. Dictated and Authenticated by: Gurpreet Garcia MD. Ordering:NETTA SIMPSON MD
== END 2018-06-16 06:43 | disposition home or self-care (01) ==
LOC: ER 06:43
PROVIDERS: Emergency Provider Physician Assistant; PCP Family Medicine
DX: M79.642 Pain in left hand (principal); M25.532 Pain in left wrist; R60.0 Localized edema; E11.22 Type 2 diabetes mellitus with diabetic chronic kidney disease; I12.9 Hypertensive chronic kidney disease with stage 1 through stage 4 chronic kidney disease, or unspecified chronic kidney disease; N18.9 Chronic kidney disease, unspecified
CPT/HCPCS: 99284; 73110; 73130; J7512

== ENCOUNTER → 2018-06-23 09:37 | Outpatient (BNVA) | payer OTHER, SELFPAY | PROVIDERS: PCP Family Medicine; Referring Provider Family Medicine; Visit Provider Surgery | DX: Z51.89 Encounter for other specified aftercare (principal); E11.8 Type 2 diabetes mellitus with unspecified complications; K25.9 Gastric ulcer, unspecified as acute or chronic, without hemorrhage or perforation | CPT/HCPCS: 99214 ==

== ENCOUNTER 2018-07-10 10:26 | Day surgery (SDC) | payer OTHER, SELFPAY ==
--- NOTE | 2018-07-10 07:05 | W.PM.ENDDOP ---
Date of service: 07/10/18 Time of Service: 12:35 Endoscopy Report DATE OF PROCEDURE: 07/10/18 PRE-OP DIAGNOSIS: Hx of Upper GI bleed and ulcers/ screening colonoscopy PROCEDURE: 1. EGD with biopsies 2. Colonoscopy with polypectomy by hot snare and cold forceps SURGEON: Ludivina Deutsch ANESTHESIA: GETA (Javon Villarreal CRNA / ASA 3) ESTIMATED BLOOD LOSS: 5 PATHOLOGY: other (Gastric antrum bx, Ge junction bx/ transverse colon polyp, ascending colon polyp) COMPLICATIONS: None DISPOSITION: PACU INDICATIONS: Mrs Iqbal is a pleasant 72 year old female who was previously admitted with an upper GI bleed and had an EGD done. She was found to have severe inflammation and ulcers which were bleeding. She was seen in the office for a follow-up EGD as well as a colonoscopy. She has not had a colonoscopy in a long time. She has had a sigmoid colectomy in the past. Risks, benefits, complications were reviewed with her and she wished to proceed. No guarantees were given or implied. PREP: Miralax/Dulcolax PROCEDURE START TIME: 12:35 PROCEDURE END TIME: 13:14 COLONOSCOPY RETRACTION TIME: 17 FINDINGS: Upper Endoscopy: Mild chronic inflammation of the stomach. No ulcers noted. Moderate inflammation of the GE junction without ulcers Colonoscopy: Severe diverticulosis of the descending and sigmoid colon Transverse colon polyps Ascending colon polyps PROCEDURE DESCRIPTION: After informed consent was obtained the patient was take to the procedure room and placed in a supine position. Monitors were applied and a time out was done. The patients name, date of , procedure type, allergies to medications and metal in their body was reviewed. She was placed under General Anesthesia and intubated. Once intubated the gastroscope was advanced through the oropharynx which was grossly normal into the esophagus. The proximal and mid-esophagus were normal. In the distal esophagus there was inflammation noted. The scope was advanced into the stomach and through the pylorus into the 3rd portion of the duodenum. The duodenum was noted to be normal. The scope was retracted back into the stomach and biopsies were done to rule out H. pylori. There were no ulcers. Some mild chronic inflammation was noted. The scope was retro-flexed. The cardia and fundus were noted to be normal. There was no hiatal hernia noted. The scope was retracted back into the esophagus and biopsies were done of the GE junction to rule out Nieto's. The Z line was regular. The GE junction was at 38 cm. The scope was removed. While still sedated and comfortable a rectal exam was done. External exam was normal. Internal exam revealed a normal sphincter tone and no palpable masses. The scope was then introduced and retro-flexed. No internal hemorrhoids were identified. The scope was then advanced to the cecum without difficulty. An end to side anastamosis was noted. There was moderate to severe diverticulosis in the descending colon. The TI and appendiceal orifice were identified. The prep was adequate. The scope was then slowly retracted over 15 minutes back into the rectum. Polypes were removed with a hot snare and cold forceps in the ascending colon and transverse colon. The scope was removed and the patient was woken up and taken back to Same day surgery in stable condition. The patient tolerated the procedure well and there were no immediate complications. Follow up: The patient should follow up in 3-5 years unless they develop changes in bowel habits or other new gastrointestinal complaints.
--- NOTE | 2018-07-10 07:14 | PDOC.DSDIS_ITS ---
Discharge Plan Disposition Patient Disposition: HOME Condition: Good Discharge Details Reason For Visit: HX OF GI BLEED,SCREENING,hx of polyps Attending Provider: Ludivina Deutsch Primary Care Provider: Cesar Nye Home Meds and New Rx's Prescriptions: Continue albuterol sulfate 90 mcg/actuation HFA aerosol inhaler 2 puff IH QID PRNRF: 0 dofetilide 500 mcg capsule 500 mcg PO Q12H RF: 0 blood sugar diagnostic [Accu-Chek Vickie Plus test strp] strip .ROUTE .MEDSUPPLY Qty: 20 RF: 0 blood sugar diagnostic strip .ROUTE .MEDSUPPLY Qty: 20 RF: 0 levothyroxine 25 mcg capsule 25 mcg PO DAILY RF: 0 magnesium chloride 64 mg tablet,delayed release (DR/EC) 64 mg PO BID RF: 0 metoprolol succinate 100 mg tablet extended release 24 hr 100 mg PO DAILY RF: 0 simvastatin 10 mg tablet 10 mg PO QPM RF: 0 allopurinol 100 mg tablet 200 mg PO DAILY Qty: 60 RF: 11 acetaminophen [Tylenol] 325 mg tablet 325 - 650 mg PO Q4H PRN PRN (Reason: pain) Qty: 30 RF: 0 pantoprazole 40 mg Tablet,Delayed Release (Dr/Ec) 40 mg PO BID@0730,2000 Qty: 120 RF: 1 ferrous sulfate 325 mg (65 mg iron) Tablet 325 mg PO BID Qty: 60 RF: 0 docusate sodium [Colace] 100 mg Capsule 100 mg PO BID Qty: 60 RF: 0 furosemide [Lasix] 20 mg tablet 20 mg PO BID Qty: 10 RF: 0 prednisone 20 mg tablet 20 mg PO DIRECTED Qty: 12 RF: 0 oxycodone 5 mg tablet 5 mg PO Q6H PRN (Reason: pain) Qty: 10 RF: 0 Discontinued polyethylene glycol 3350 17 gram powder in packet 255 g PO DAILY Qty: 15 RF: 0 bisacodyl [Dulcolax (bisacodyl)] 5 mg tablet,delayed release (DR/EC) 5 mg PO ONCE Qty: 4 RF: 0 sucralfate 1 gram Tablet 1 g PO Q6H Qty: 120 RF: 1 Discharge Instructions Instructions: Colonoscopy (DC), Upper Endoscopy (DC), Diverticulosis (DC), Colorectal Polyps (DC), Gastritis (DC), Diet for Stomach Ulcers and Gastritis ( GEN), Esophagitis (DC) Additional Instructions: Findings: 1. Mild chronic inflammation of the stomach 2. Mild to moderate inflammation of the esophagus 3. Diverticulosis 4. Multiple polyps Follow up: 3-5 years new medications: None Please call if you develop: fevers >101.5 Nausea or Vomiting Abdominal pain that is not transient DAY SURGERY UNIT POST COLONOSCOPY INSTRUCTIONS 1. Because there will be medication in your system for the next 24 hours, you may feel a little sleepy. Your coordination will be affected. Therefore: a. Do not drive or operate dangerous equipment for 24 hours. b. Do not drink alcohol beverages for 24 hours (not even beer). c. Plan to go home and rest for the day. 2. Generally there are no restrictions on your activity after a day or so has gone by, but you may feel a bit fatigued for a few days. 3 After you arrive home you may have a light meal and return to a normal diet as you can tolerate it without feeling sick to your stomach. 4. After surgery, you may feel pain or discomfort. This should be only transient , but if it persists please contact your doctor. 5. If there are any questions regarding the findings of your procedure, please feel free to contact your doctor. 6. If you are unable to contact your doctor with a problem, contact the hospital at [phone]. 7. Continue all your regular medications unless directed otherwise. I understand the above instructions and have no questions. Signature of Patient or Responsible Adult Escort Date/Time Name of Responsible Adult Escort Signature of Nurse Date/Time Activity:: Activity as Tolerated Diet:: High fiber diet Discharge Orders Discharge Orders: Discharge Order (Routine); Ordered 07/10/18 Ordered By: Ludivina Deutsch DS: Diagnosis Discharge Diagnosis (1) S/P colonoscopy: Status: Acute (2) History of esophagogastroduodenoscopy (EGD): Status: Chronic (3) Colon polyp: Status: Acute (4) Diverticulosis: Status: Acute
[2018-07-10 10:34] VITALS: BP 134/58; PULSE 84; RESP 20; TEMP 37.9; O2SAT 92
--- NOTE | 2018-07-10 11:03 | HOME_ITS ---
Home Ventilator Equipment Home care company [employer] Reason: Obstructive Sleep Apnea Make: Respironics Model: REMStar Mask type: Nasal pillows Mask size: Mode: BiPAP Settings: Max/min 25/13 with PS 8.0 Oxygen bleed in (lpm): 0 Condition: Good Date last checked: 07/10/18 Year of last sleep study: [facility]iance Daily Comments:
--- NOTE | 2018-07-10 11:05 | HOME_ITS ---
Home Ventilator Equipment Home care company [employer] Reason: Obstructive Sleep Apnea Make: Respironics Model: REMStar Mask type: Nasal mask Mask size: Mode: BiPAP Settings: Max/min 25/13 PS 8.0 Oxygen bleed in (lpm): 0 Condition: Good Date last checked: Year of last sleep study: [facility] Daily Comments:
[2018-07-10] MEDS: Lactated Ringers 1,000 ML 80 ML IV (12:15)
--- NOTE | 2018-07-10 12:44 | STOM_PTH ---
PATIENT: Maliha Iqbal LOC: [facility] U#:[id number] AGE/SX: 72/F ROOM: RE07/10/[address]: Ludivina Deutsch MD : [id number] BED: DIS: 07/10/2018 SPEC #: [id number] RECD: 07/10/18 17:44 STATUS: AMANDA REQ #: [id number] EARNEST: 07/10/18 12:[address]: Ludivina Deutsch DEPT: Surgical Specimen RECD BY: Alicia Medeiros ENTERED: 07/10/18 17:45 SP TYPE: STOMACH OTHR DR: Cesar Nye MD Tissues: 1 - STOMACH BIOPSY 2 - ESOPHAGUS BIOPSY 3 - BIOPSY BOWEL Procedures: GROSS AND MICRO LEVEL 4 Comments: [id number]
[2018-07-10 13:28] VITALS: BP 109/64; PULSE 68; RESP 23; TEMP 36.6; O2SAT 95
[2018-07-10 13:33] VITALS: BP 108/64; PULSE 70; RESP 22; TEMP 36.5; O2SAT 96
[2018-07-10 13:38] VITALS: BP 110/68; PULSE 69; RESP 21; TEMP 36.6; O2SAT 96
[2018-07-10 13:51] VITALS: BP 118/58; PULSE 70; RESP 22; TEMP 36.5; O2SAT 96
[2018-07-10 14:53] VITALS: BP 132/46; PULSE 77; RESP 18; TEMP 37.1; O2SAT 98
== END 2018-07-10 14:48 | disposition home or self-care (01) ==
PROVIDERS: PCP Family Medicine; Visit Provider Surgery
PROC: (CPT 43239; principal; 2018-07-10 10:30)
DX: Z12.11 Encounter for screening for malignant neoplasm of colon (principal); D12.2 Benign neoplasm of ascending colon; D12.3 Benign neoplasm of transverse colon; Z90.49 Acquired absence of other specified parts of digestive tract; Z09 Encounter for follow-up examination after completed treatment for conditions other than malignant neoplasm; Z87.11 Personal history of peptic ulcer disease; K31.89 Other diseases of stomach and duodenum; E11.9 Type 2 diabetes mellitus without complications; I10 Essential (primary) hypertension; G47.33 Obstructive sleep apnea (adult) (pediatric)
CPT/HCPCS: 43239; 45380; 45385; 88305

== ENCOUNTER 2018-07-28 10:27 | Outpatient (CLI) | payer OTHER, SELFPAY | END 2018-07-28 10:47 | PROVIDERS: PCP Family Medicine; Visit Provider Internal Medicine Cardiovascular Disease | DX: I35.0 Nonrheumatic aortic (valve) stenosis (principal); G47.33 Obstructive sleep apnea (adult) (pediatric); E78.5 Hyperlipidemia, unspecified; I10 Essential (primary) hypertension; I48.91 Unspecified atrial fibrillation; E11.9 Type 2 diabetes mellitus without complications | CPT/HCPCS: 99214 ==

== ENCOUNTER 2018-09-06 05:25 | Outpatient (RCR) | payer OTHER, SELFPAY ==
[2018-08-29] MEDS: Normal Saline Flush 10 ML SYR IVP (08:40)
[2018-09-06] MEDS: Normal Saline Flush 10 ML SYR IVP (08:56)
== END 2018-09-07 23:59 | disposition home or self-care (01) ==
LOC: INF 05:25
PROVIDERS: PCP Family Medicine; Visit Provider Internal Medicine
DX: D64.9 Anemia, unspecified (principal)
CPT/HCPCS: 96365; 96366; J1756

== ENCOUNTER 2018-09-21 01:22 | Outpatient (RCR) | payer OTHER, SELFPAY ==
[2018-09-14] MEDS: Normal Saline Flush 10 ML SYR IVP (09:06)
[2018-09-21] MEDS: Normal Saline Flush 10 ML SYR IVP (09:18)
== END 2018-10-05 23:59 | disposition home or self-care (01) ==
LOC: INF 01:22
PROVIDERS: PCP Family Medicine; Visit Provider Internal Medicine
DX: D50.9 Iron deficiency anemia, unspecified (principal)
CPT/HCPCS: 96365; 96366; J1756

== ENCOUNTER → 2018-11-28 07:28 | Outpatient (CLI) | payer OTHER, SELFPAY ==
[2018-11-28 08:24] LABS: Hemoglobin A1C 7.2 % (4.5-6.2)
[2018-11-28 09:11] LABS: ALT 45 U/L (12-78); AST 46 U/L (15-37); Albumin 3.5 g/dL (3.4-5.0); Alkaline Phosphatase 76 U/L (46-116); Anion Gap 9.8 mmol/L (3-11); BUN 32 mg/dL (7-18); Bilirubin, Total 0.3 mg/dL (0.2-1.0); CO2 27.2 mmol/L (21.0-32.0); Calcium 9.4 mg/dL (8.5-10.1); Chloride 104 mmol/L (98-107); Cholesterol 158 mg/dL (50-200); Estimated GFR 40.26 (mL/min/1.73m2); Glucose 140 mg/dL (70-100); HDL Cholesterol 43 mg/dL (40-60); LDL CHOLESTEROL 101 mg/dL (<100); Potassium 4.5 mmol/L (3.5-5.1); Sodium 141 mmol/L (136-145); TSH (W/Ref FT4) 4.34 uIU/mL (0.358-3.74); Total Protein 7.7 g/dL (6.4-8.2); Triglyceride 102 mg/dL (30-150)
== END ==
PROVIDERS: PCP Family Medicine; Visit Provider Family Medicine
DX: E78.5 Hyperlipidemia, unspecified (principal); E11.9 Type 2 diabetes mellitus without complications; I10 Essential (primary) hypertension
CPT/HCPCS: 36415; 80053; 80061; 83721; 83036; 84439; 84443

== ENCOUNTER → 2018-12-14 13:56 | Outpatient (BNVA) | payer OTHER, SELFPAY | PROVIDERS: PCP Family Medicine; Visit Provider Internal Medicine Cardiovascular Disease | DX: R69 Illness, unspecified (principal) ==

== ENCOUNTER → 2018-12-14 15:51 | Outpatient (CLI) | payer OTHER, SELFPAY | PROVIDERS: PCP Family Medicine; Visit Provider Internal Medicine Cardiovascular Disease | DX: I48.91 Unspecified atrial fibrillation (principal); I35.0 Nonrheumatic aortic (valve) stenosis; Z79.899 Other long term (current) drug therapy; G47.33 Obstructive sleep apnea (adult) (pediatric); E78.5 Hyperlipidemia, unspecified; E03.9 Hypothyroidism, unspecified; E11.9 Type 2 diabetes mellitus without complications | CPT/HCPCS: 99214; 93005; 93010 ==

== ENCOUNTER 2019-05-30 08:21 | Outpatient (CLI) | payer OTHER, SELFPAY ==
[2019-05-30 08:44] LABS: Abs Immature Grans 0.06 k/cumm (0.0-0.09); Absolute Basophil Count 0.05 k/cumm (0.0-0.2); Absolute Eosinophil Count 0.38 k/cumm (0.0-0.7); Absolute Lymphocyte Count 2.18 k/cumm (1.2-3.4); Absolute Monocyte Count 0.81 k/cumm (0.11-0.7); Absolute Neutrophil Count 5.67 k/cumm (1.2-6.7); Basophils % 0.5; Eosinophils % 4.2; HCT 42.7 % (36.0-46.0); HGB 13.5 g/dL (12.0-15.5); Immature Grans % 0.7; Lymphocytes % 23.8; Mean Corp. HGB Concentration 31.6 g/dL (32.0-36.0); Mean Corpuscular Hemoglobin 31.2 pg (27.0-33.0); Mean Corpuscular Volume 98.6 fL (80-95); Mean Platelet Volume 9.5 fL (8.0-11.0); Monocytes % 8.9; Neutrophils % 61.9; Platelet Count 450 x1000/uL (130-400); RBC 4.33 m/cumm (4.00-5.20); RBC Distribution Width 15.4 % (11.7-14.6); White Blood Cell Count 9.15 k/cumm (4.4-10.8)
[2019-05-30 09:26] LABS: Hemoglobin A1C 7.2 % (4.5-6.2)
[2019-05-30 09:39] LABS: ALT 51 U/L (14-59); AST 69 U/L (15-37); Albumin 3.6 g/dL (3.4-5.0); Alkaline Phosphatase 80 U/L (46-116); Anion Gap 13.5 mmol/L (3-11); BUN 29 mg/dL (7-18); Bilirubin, Total 0.4 mg/dL (0.2-1.0); CO2 24.5 mmol/L (21.0-32.0); CREATININE 1.27 mg/dL (0.55-1.02); Calcium 9.5 mg/dL (8.5-10.1); Chloride 103 mmol/L (98-107); Estimated GFR 41.36 (mL/min/1.73m2); Glucose 135 mg/dL (70-100); Potassium 4.4 mmol/L (3.5-5.1); Sodium 141 mmol/L (136-145); TSH 6.16 uIU/mL (0.36-3.74); Uric Acid 5.5 mg/dL (2.6-6.0)
== END 2019-05-30 08:41 ==
PROVIDERS: PCP Family Medicine; Visit Provider Family Medicine
DX: I10 Essential (primary) hypertension (principal); E03.9 Hypothyroidism, unspecified; E11.9 Type 2 diabetes mellitus without complications; M10.9 Gout, unspecified
CPT/HCPCS: 80048; 80053; 85027; 83036; 84443; 84550; 85025

== ENCOUNTER 2019-06-08 08:39 | Outpatient (CLI) | payer OTHER, SELFPAY | END 2019-06-08 08:59 | PROVIDERS: PCP Family Medicine; Visit Provider Internal Medicine Cardiovascular Disease | DX: I35.0 Nonrheumatic aortic (valve) stenosis (principal); I48.91 Unspecified atrial fibrillation; E78.5 Hyperlipidemia, unspecified; I11.0 Hypertensive heart disease with heart failure; I50.9 Heart failure, unspecified; E11.9 Type 2 diabetes mellitus without complications; Z79.84 Long term (current) use of oral hypoglycemic drugs | CPT/HCPCS: 99205; 99215; 93005; 93010 ==

== ENCOUNTER 2019-06-23 00:51 | Emergency (ER) | payer OTHER, SELFPAY ==
[2019-06-23 01:05] VITALS: BP 142/70; PULSE 89; RESP 22; TEMP 36.2; O2SAT 89
--- NOTE | 2019-06-23 01:10 | W.ED.GENAD ---
Discharge Plan Disposition Patient Disposition: HOME Condition: Stable Discharge Details Clinical Impression: Heart palpitations Primary Care Provider: Cesar Nye ED Provider: Gurpreet Eldridge Home Meds and New Rx's Prescriptions: Continued albuterol sulfate 90 mcg/actuation HFA aerosol inhaler 2 puff IH QID PRNRF: 0 furosemide [Lasix] 20 mg tablet 20 mg PO BID RF: 0 dofetilide 500 mcg capsule 500 mcg PO Q12H Qty: 60 RF: 11 colchicine 0.6 mg tablet 0.6 mg PO DAILY RF: 0 allopurinol 300 mg tablet 300 mg PO DAILY Qty: 90 RF: 3 Eliquis 5 mg tablet 5 mg PO BID Qty: 60 RF: 11 metformin 500 mg tablet 500 mg PO BID Qty: 180 RF: 3 acetaminophen [Tylenol] 325 mg tablet 325 - 650 mg PO Q4H PRN PRN (Reason: pain) Qty: 30 RF: 0 metoprolol succinate 100 mg tablet extended release 24 hr 100 mg PO DAILY Qty: 90 RF: 3 simvastatin 10 mg tablet 10 mg PO QPM Qty: 90 RF: 3 (DME) blood sugar diagnostic strip See Dose Instructions .ROUTE .MEDSUPPLY Qty: 400 RF: 3 magnesium chloride 64 mg tablet,delayed release (DR/EC) 64 mg PO BID Qty: 180 RF: 3 levothyroxine 25 mcg capsule 25 mcg PO DAILY Qty: 90 RF: 3 Discharge Instructions Additional Instructions: stop using afrin as this may have caused your symptoms to start follow up with your primary care provider this week if you have recurrent high heart rate, chest pain or difficulty breathing return to the emergency department Medical Decision Making 73 yo female with hx of afib s/p ablation and anticoagulation, chf, asthma, who comes in stating her heart rate at home was 180 and she had shortness of breath. She states her symptoms other than some mild shortness of breath. She denies fevers, chest pain, n/v. She states she does have a hx of svt but not for years. She arrives with hr's in the 80's in sinus rhythm, does have some mild crackles at the bases otherwise clear lungs. Suspect she was in svt given her HR of 180 and now normal, will obtain lab work and cxr and monitor. No evidence of dvt and no pleuritic chest pain and is on anticoagulation so doubt PE labs and imaging show no acute findings and she remains asymptoamtic. She states she used afrin and her symptoms started shortly after so I feel she likely was in svt and resolved on it's own. Given stable observation here and no symptoms feel she can be d/c'd and f/u with pcp and return precautions given Differential Diagnosis Differential Diagnosis: afib, svt, pna Medical Records Medical records reviewed: Yes I reviewed the patient's medical records. Imaging Data Radiologic Study: Attestation: I personally reviewed and interpreted this imaging study as follows: Imaging: X-Ray Radiologist's impression: no acute findings Lab Data Lab results reviewed: Yes I reviewed the patient's lab results. ECG Data Attestation: I personally reviewed and interpreted this ECG (s) as follows: Prior ECG tracings: not available for review Interpretation: sinus rhythm, rate of 80, pr 154, pvc's HPI General Mode of arrival: ambulatory. Date/Time Provider Initiated Documentation: 06/23/19 00:52. Limitations to Documentation: no limitations. Information obtained by: patient. History of Present Illness 73 year old F presents to the emergency department with the chief complaint of high heart rate, described as moderate, Patient started experiencing this hour(s) (5) and it has been constant. No relieving factors improve symptom(s), No exacerbating factors reported . Patient did receive the following treatments prior to arrival, none Related Data Home Medications Medication Instructions Recorded Confirmed albuterol sulfate 90 mcg/actuation 2 puff IH QID PRN 04/17/18 06/08/19 aerosol inhaler acetaminophen 325 mg tablet 325 - 650 mg PO Q4H PRN PRN #30 tab 05/24/18 06/08/19 allopurinol 300 mg tablet 300 mg PO DAILY #90 tab 08/25/18 06/08/19 apixaban 5 mg tablet 5 mg PO BID #60 tab 08/25/18 06/08/19 blood sugar diagnostic #400 each NS 11/22/18 06/08/19 metoprolol succinate 100 mg 100 mg PO DAILY #90 tab 11/22/18 06/08/19 tablet,extended release 24 hr simvastatin 10 mg tablet 10 mg PO QPM #90 tab 11/22/18 06/08/19 dofetilide 500 mcg capsule 500 mcg PO Q12H #60 cap 12/14/18 06/08/19 colchicine 0.6 mg tablet 0.6 mg PO DAILY 12/17/18 06/08/19 metformin 500 mg tablet 500 mg PO BID #180 tab 01/09/19 06/08/19 magnesium chloride 64 mg 64 mg PO BID #180 tab 04/10/19 06/08/19 (magnesium chloride) tablet,delayed release furosemide 20 mg tablet 20 mg PO BID tab 06/08/19 levothyroxine 25 mcg capsule 25 mcg PO DAILY #90 cap 06/18/19 Previous Rx's Medication Instructions Recorded acetaminophen 325 mg tablet 325 - 650 mg PO Q4H PRN PRN #30 tab 05/24/18 allopurinol 300 mg tablet 300 mg PO DAILY #90 tab 08/25/18 apixaban 5 mg tablet 5 mg PO BID #60 tab 08/25/18 blood sugar diagnostic #400 each NS 11/22/18 metoprolol succinate 100 mg 100 mg PO DAILY #90 tab 11/22/18 tablet,extended release 24 hr simvastatin 10 mg tablet 10 mg PO QPM #90 tab 11/22/18 dofetilide 500 mcg capsule 500 mcg PO Q12H #60 cap 12/14/18 metformin 500 mg tablet 500 mg PO BID #180 tab 01/09/19 magnesium chloride 64 mg 64 mg PO BID #180 tab 04/10/19 (magnesium chloride) tablet,delayed release levothyroxine 25 mcg capsule 25 mcg PO DAILY #90 cap 06/18/19 Allergies Allergy/AdvReac Type Severity Reaction Status Date / Time aspirin Allergy Hives Unverified 06/08/19 10:53 Penicillins Allergy Unverified 06/08/19 10:53 tetracycline Allergy Unverified 06/08/19 10:53 adhesive AdvReac Intermediate Topical Unverified 06/08/19 10:53 Irritation General BROOKE: 4 Review of Systems All systems reviewed & are unremarkable except as noted in HPI and below Constitutional Constitutional: Denies chills, Denies fever(s) and Denies weakness ENT Ears, Nose, Mouth, and Throat: Denies change in voice Respiratory Respiratory: Denies cough Gastrointestinal Gastrointestinal: Denies abdominal pain, Denies nausea and Denies vomiting Musculoskeletal Musculoskeletal: Denies joint swelling Neurologic Neurologic: Denies weakness PFSH Social History (Updated 06/08/19 @ 10:57 by Alexandra Woods RN) Smoking/Tobacco Use Status: Former Tobacco Use Quit Date: 08/08/72 Tobacco: How many years used: 4 Alcohol Intake: never Drug use: Never Substance use type: does not use Caregiver/Support person: No Household members: spouse Housing: house Communication Needs: None 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 Pets and animals: Yes Pets and animals: dog(s) Sexually active: Yes Do you think of yourself as: straight/heterosexual Current gender identity: female What is your relationship status?: How often do you talk on the phone with friends or family?: three or more times per week How often do you get together with friends or relatives?: three or more times per week How often do you attend mandaen or buddhist services?: 4 or more times per year Do you belong to any clubs or organized social groups?: no Panel score (0-1 are the most socially isolated patients): 3 What type of physical activity do you participate in: walking Duration: < 15 minutes/day Frequency: 1-2 times per week Radha/Presybeterian: Sabianism Special radha needs: No Seatbelt use: always Drive intox or ride w/intox intermodal 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: No Do you feel safe in your relationship?: Yes Exam Const General: no acute distress Orientation: alert HENMT Head: normal to inspection Ears: external ears normal General nose exam: external nose normal Mouth: moist mucous membranes Eyes General: appearance normal, both eyes and all related structures Neck Neck: normal visual inspection Resp Effort & Inspection: normal respiratory effort and able to speak in complete sentences Cardio Rate: regular rate Skin General skin exam: no rashes or lesions noted Neuro General: alert and oriented x3 Extrem General: normal to inspection Psych Mental Status: mental status grossly normal
--- NOTE | 2019-06-23 01:23 | DI.RAD_ITS ---
EXAM: XR PORTABLE CHEST AP INDICATION: SHORTNESS OF BREATH. COMPARISON: No exams were available for comparison TECHNIQUE: 2D digital imaging was performed. FINDINGS: Exam is somewhat limited by patient body habitus. The heart is again noted to be enlarged. Mitral valve calcifications are again noted. No focal infiltrate, effusion or pulmonary edema is seen. IMPRESSION: Cardiomegaly. No acute abnormality.
--- NOTE | 2019-06-23 01:32 | DI.VRAD_ITS ---
PROCEDURE INFORMATION: Exam: XR Chest, 1 View Exam date and time: 06/23/2019 1:24 AM Clinical history: 73 years old, female; Shortness of breath TECHNIQUE: Imaging protocol: XR of the chest Views: 1 view. COMPARISON: CR XR PORTABLE CHEST AP 05/10/2018 3:51 PM FINDINGS: Lungs: No parenchymal consolidation. Pleural space: No pneumothorax. Heart/Mediastinum: Heart top normal in size. There no parenchymal consolidation. Bones/joints: Degenerative changes of spine and shoulders. IMPRESSION: No acute findings. Dictated and Authenticated by: Stanton Mendoza MD. Ordering:TARAH Vázquez MD
[2019-06-23 03:05] VITALS: BP 141/81; PULSE 68; RESP 14; TEMP 36.8; O2SAT 97
[2019-06-23 07:03] LABS: Albumin 3.5 g/dL (3.4-5.0); Alkaline Phosphatase 79 U/L (46-116); BUN 28 mg/dL (7-18); Bilirubin, Total 0.3 mg/dL (0.2-1.0); CREATININE 1.32 mg/dL (0.55-1.02); Calcium 9.2 mg/dL (8.5-10.1); Estimated GFR 39.56 (mL/min/1.73m2); Glucose 133 mg/dL (70-100); Sodium 140 mmol/L (136-145); Total Protein 8.2 g/dL (6.4-8.2)
[2019-06-23 07:04] LABS: ALT 56 U/L (14-59); AST 79 U/L (15-37); Anion Gap 10.8 mmol/L (3-11); CO2 25.2 mmol/L (21.0-32.0); Chloride 104 mmol/L (98-107); NT-proBNP 257 pg/mL; Potassium 3.9 mmol/L (3.5-5.1); Troponin I < 0.05 ng/mL (0.00-0.06); White Blood Cell Count 9.31 k/cumm (4.4-10.8)
[2019-06-23 07:05] LABS: Absolute Eosinophil Count 0.54 k/cumm (0.0-0.7); Absolute Lymphocyte Count 2.63 k/cumm (1.2-3.4); Absolute Monocyte Count 0.97 k/cumm (0.11-0.7); Absolute Neutrophil Count 5.08 k/cumm (1.2-6.7); Eosinophils % 5.8; HCT 42.4 % (36.0-46.0); HGB 13.3 g/dL (12.0-15.5); Lymphocytes % 28.2; Mean Corp. HGB Concentration 31.4 g/dL (32.0-36.0); Mean Corpuscular Hemoglobin 30.9 pg (27.0-33.0); Mean Corpuscular Volume 98.4 fL (80-95); Mean Platelet Volume 9.9 fL (8.0-11.0); Monocytes % 10.4; Neutrophils % 54.6; Platelet Count 442 x1000/uL (130-400); RBC 4.31 m/cumm (4.00-5.20); RBC Distribution Width 15.5 % (11.7-14.6)
[2019-06-23 07:06] LABS: Absolute Basophil Count 0.05 k/cumm (0.0-0.2); Basophils % 0.5; INR 1.2 (0.9-1.1); Immature Grans % 0.5; PTT Activated 26.6 sec (21.0-31.4); Prothrombin Time 11.8 sec (9.3-11.0)
== END 2019-06-23 03:05 | disposition home or self-care (01) ==
PROVIDERS: Emergency Provider Emergency Medicine; PCP Family Medicine
DX: R00.2 Palpitations (principal); I48.91 Unspecified atrial fibrillation; I50.9 Heart failure, unspecified; J45.909 Unspecified asthma, uncomplicated
CPT/HCPCS: 36415; 80053; 93005; 96374; 99285; 71045; 83735; 83880; 84484; 85025; 85610; 85730; 93010

== ENCOUNTER → 2020-02-20 10:50 | Outpatient (BNVA) | payer OTHER, SELFPAY | PROVIDERS: PCP Family Medicine; Referring Provider Family Medicine; Visit Provider Internal Medicine Cardiovascular Disease | DX: I48.91 Unspecified atrial fibrillation (principal); I35.0 Nonrheumatic aortic (valve) stenosis; I11.0 Hypertensive heart disease with heart failure; E11.22 Type 2 diabetes mellitus with diabetic chronic kidney disease; Z79.01 Long term (current) use of anticoagulants; Z79.84 Long term (current) use of oral hypoglycemic drugs | CPT/HCPCS: 99213 ==

== ENCOUNTER 2020-04-23 01:35 | Outpatient (CLI) | payer OTHER, SELFPAY ==
--- NOTE | 2020-04-23 12:07 | DI.US_ITS ---
APPROVED REPORT EXAM: Comprehensive 2D, Doppler, and color-flow Echocardiogram Patient Location: Out-Patient Bracelet And Brooch Maker: Ema Bhardwaj RDCS (AE) Indications: Aortic Stenosis Other Information Study Quality: Adequate Conclusion Left Ventricle : The left ventricle is normal size. The left ventricular systolic function is normal. The left ventricular ejection fraction is within the normal range. Mild to moderate concentric left ventricular hypertrophy. There is normal LV segmental wall motion. The left ventricular diastolic fun ction is abnormal. LVEF is 58%. Right Ventricle : The right ventricle is normal size. The right ventricular systolic function is norm al. The RVSP is 44.6 mmHg. Atria : Left atrium is moderate to severely dilated. Right atrium is moderate to severely dilated. Aortic Valve : Aortic valve is calcified. Severe aortic valve sclerosis. Aortic valve is trileaflet. There is moderate to severe aortic stenosis. Peak aortic valve gradient is 61.7 mmHg. Highest mean ao rtic valve gradient is 34.9 mmHg. Calculated RIA by the continuity equation is .99cm2. No aortic regu rgitation is present. Mitral Valve : Severe mitral annular calcification. The mitral valve is calcified and displays decrea sed opening. Mild to moderate mitral stenosis. Moderate mitral regurgitation. Great Vessels : The aortic root is normal in size. The ascending aorta is normal in size. Descending aorta is normal in caliber. IVC is normal in size and collapses >50% with inspiration. Compared to study from 05/10/2018: The patient's aortic has worsened. Wall motion Left Ventricle The left ventricle is normal size. The left ventricular systolic function is normal. The left ventric ular ejection fraction is within the normal range. Mild to moderate concentric left ventricular hyper trophy. There is normal LV segmental wall motion. The left ventricular diastolic function is abnormal . There is no ventricular septal defect visualized. LVEF is 58%. Right Ventricle The right ventricle is normal size. The right ventricular systolic function is normal. The RVSP is 44 .6 mmHg. Atria Left atrium is moderate to severely dilated. Right atrium is moderate to severely dilated. The intera trial septum is intact with no evidence for an atrial septal defect. Aortic Valve Aortic valve is calcified. Severe aortic valve sclerosis. Aortic valve is trileaflet. There is modera te to severe aortic stenosis. Peak aortic valve gradient is 61.7 mmHg. Highest mean aortic valve grad ient is 34.9 mmHg. Calculated RIA by the continuity equation is .99cm2. No aortic regurgitation is pr esent. Trace aortic regurgitation. Trace to mild aortic regurgitation. Mitral Valve Severe mitral annular calcification. The mitral valve is calcified and displays decreased opening. Mi ld to moderate mitral stenosis. Moderate mitral regurgitation. Tricuspid Valve The tricuspid valve is normal in structure. There is no tricuspid valve stenosis. Mild tricuspid regu rgitation. Pulmonic Valve The pulmonary valve is normal in structure. There is no pulmonic valvular stenosis. Trace pulmonic re gurgitation. Great Vessels The aortic root is normal in size. The ascending aorta is normal in size. Descending aorta is normal in caliber. IVC is normal in size and collapses >50% with inspiration. Pericardium Mild circumferential pericardial effusion. 2D Dimensions IVSD d PLAX 1.30 cm F: 0.6-1.0 LV Vol A2C d MOD 113.4 mL LVPW d PLAX 1.32 cm F: 0.6 - 1.0 LV Vol A4C d MOD 94.7 mL LVID d PLAX 5.11 cm F: 3.8 - 5.2 LA vol/ BSA A2C s A-L 41.2 mL/m2 LVDs 3.50 cm F: 2.2 - 3.5 LA vol/ BSA A4C s A-L 48.7 mL/m2 Ao Root d 2.57 cm F: 2.7 - 3.3 LA Vol/ BSA Biplane s A-L 51.0 mL/m2 RA Area A4C 18.52 cm2 LA Area A4C s MOD 29.21 cm2 RA Vol/ BSA A4C s A-L 27.0 mL/m2 LA Area A2C s MOD 23.57 cm2 Ao Asc Diam d 2.92 cm F: 2.3 - 3.1 LV EF A4C MOD 57.7 % LV EF Teichholz 58.4 % LV EF A2C MOD 58.1 % LVEF (Carrero's) 57.08 % F: 54 - 74 LV EF Biplane MOD 57.1 % LV Volume 79.11 mL F: 46 - 106 SV 60.47 mL LV Volume Index 39.16 mL/m2 F: 29 - 61 SV Index 29.83 mL/m2 LV Vol Biplane MOD 106.0 mL FS 31.05 % M-Mode TAPSE 3.02 cm (M/F) >1.7 LV Diastology MV E' medial 0.065 (>0.07 m/s) E/A Ratio 2.5 LV E/e MED 25.25 (<14) MV E Vmax 1.64 (0.4-1.3 m/s) MV E' lateral 0.088 (>0.1 m/s) MV A Vmax 0.65 (0.4-1.3 m/s) LV E/e LAT 18.55 (<14) MV E/A Ratio 2.46 MV E/E' medial 25.26 MV E/E' lateral 18.59 Aortic Valve LVOT Area 2.35 cm2 AoV Area Vmax 0.99 cm2 LVOT Vmax 1.66 m/s AoV Area/ BSA (Vmax) 0.49 cm2/m2 LVOT Mean Denny. 1.16 m/s RIA Mean Denny. 0.97 cm2 LVOT Peak Grad 11.0 mmHg RIA Mean Denny. Index 0.48 cm2/m2 LVOT Mean Grad 6.1 mmHg LVOT VTI 0.370 m LVOT Diam s 1.70 cm AoV Vmax 3.93 m/s Velocity Ratio 0.42 AoV Mean Denny. 2.81 m/s AoV Peak Grad 61.7 mmHg LVOT SV 87.04 mL AoV Mean Grad 34.9 mmHg AoV VTI 0.884 m AoV Area VTI 0.99 cm2 AoV Area/ BSA (VTI) 0.49 cm/m2 Mitral Valve MV DT 232 (160-240 msec) MR Vmax 4.95 m/s MV PHT 67 msec MR VTI 1.337 m MV Area PHT 3.27 cm2 MR Peak Grad 98.2 mmHg MV VTI 0.443 m MR Mean Grad 75.9 mmHg MV VTI Annulus 0.452 m MR PISA Radius 0.45 cm MV Area VTI 2.01 (4.0-6.0 cm2) MR EROA 0.09 cm2 MR Aliasing Velocity 0.35 m/s MR PISA 1.27 cm2 Pulmonary Valve PV Vmax 1.57 (0.5-1.5 m/s) RVOT Peak Gr. 5.55 mmHg PV Peak Grad 9.9 mmHg RVOT Mean Gr. 2.40 mmHg PV Mean Grad 5.2 mmHg RVOT VTI 0.224 m PV VTI 0.339 m RVOT Vmax 1.18 m/s Tricuspid Valve TR Peak Grad 41.6 mmHg TR Vmax 3.23 m/s RA Pressure 3.00 mmHg RVSP (TR) 44.6 mmHg
== END 2020-04-23 01:55 ==
PROVIDERS: PCP Family Medicine; Visit Provider Internal Medicine Cardiovascular Disease
DX: I08.0 Rheumatic disorders of both mitral and aortic valves
CPT/HCPCS: 93306

== ENCOUNTER 2020-06-03 02:31 | Outpatient (CLI) | payer OTHER, SELFPAY ==
[2020-06-03 12:46] LABS: TSH 3.76 uIU/mL (0.36-3.74); Vitamin B12 756 pg/mL (193-986)
== END 2020-06-03 02:51 ==
PROVIDERS: PCP Family Medicine; Visit Provider Family Medicine
DX: E11.9 Type 2 diabetes mellitus without complications (principal); E03.9 Hypothyroidism, unspecified
CPT/HCPCS: 36415; 82607; 84443

== ENCOUNTER → 2020-08-29 11:01 | Outpatient (BNVA) | payer MEDICARE, SELFPAY | PROVIDERS: PCP Family Medicine; Visit Provider Internal Medicine Cardiovascular Disease | DX: I48.91 Unspecified atrial fibrillation (principal); I48.0 Paroxysmal atrial fibrillation; I35.0 Nonrheumatic aortic (valve) stenosis; I10 Essential (primary) hypertension; Z79.01 Long term (current) use of anticoagulants | CPT/HCPCS: 99214 ==

== ENCOUNTER → 2021-01-23 01:53 | Outpatient (CLI) | payer MEDICARE, SELFPAY ==
--- NOTE | 2021-01-23 10:33 | DI.US_ITS ---
APPROVED REPORT EXAM: Comprehensive 2D, Doppler, and color-flow Echocardiogram Patient Location: Out-Patient Hose Tester: Ema Bhardwaj RDCS (AE) Indications: Aortic Stenosis, Atrial Fibrillation Other Information Study Quality: Adequate Conclusion Mild concentric left ventricular hypertrophy. Estimated ejection fraction is 60 to 65%. Wall motion is normal Normal right ventricular size and systolic function Moderately enlarged right atrial size. The left atrium is severely dilated Aortic valve is sclerotic with severe aortic stenosis. Peak gradient is 63, mean 37. Calculated aor tic valve area is 1.13 cm??. There is no aortic regurgitation Mitral annulus is calcified. There is trace mitral regurgitation. There is mild to moderate mitral stenosis There is mild tricuspid regurgitation. Estimated right ventricular systolic pressure is 67.3 mmHg Aortic root and ascending aorta are normal in size Wall motion Left Ventricle The left ventricle is normal size. The left ventricular systolic function is normal. The left ventric ular ejection fraction is within the normal range. Mild concentric left ventricular hypertrophy. Ther e is normal LV segmental wall motion. Left ventricular filling pattern is normal for age. Transmitral Doppler flow pattern suggests impaired LV relaxation. There is no ventricular septal defect visualiz ed. LVEF is 60-65%. Right Ventricle The right ventricle is normal size. The right ventricular systolic function is normal. The RVSP is 67 .3mmHg. Atria Left atrium is severely dilated. Right atrium is moderately dilated. The interatrial septum is intact with no evidence for an atrial septal defect. Aortic Valve Aortic valve is calcified. Severe aortic valve sclerosis. Number of aortic valve leaflets could not b e assessed. Moderate to severe aortic stenosis Peak aortic valve gradient is 63.2mmHg. mean 37 mmHg H ighest mean aortic valve gradient is 37.0mmHg. Calculated RIA by the continuity equation is 1.13_cm2. No aortic regurgitation is present. Mitral Valve Severe mitral annular calcification. Mild to moderate mitral stenosis. Mild mitral regurgitation. Tricuspid Valve The tricuspid valve is normal in structure. There is no tricuspid valve stenosis. Mild tricuspid regu rgitation. Pulmonic Valve Pulmonic valve is not well visualized. There is no pulmonic valvular stenosis. Trace pulmonic regurgi tation. Great Vessels The aortic root is normal in size. The ascending aorta is normal in size. Aortic arch is normal in ca liber. IVC is normal in size and collapses >50% with inspiration. Pericardium There is no pericardial effusion. 2D Dimensions IVSD d PLAX 1.30 cm F: 0.6-1.0 LV Vol A2C d MOD 133.2 mL LVPW d PLAX 1.35 cm F: 0.6 - 1.0 LV Vol A4C d MOD 106.4 mL LVID d PLAX 4.40 cm F: 3.8 - 5.2 LA vol/ BSA A2C s A-L 44.4 mL/m2 LVDs 3.10 cm F: 2.2 - 3.5 LA vol/ BSA A4C s A-L 36.4 mL/m2 Ao Root d 2.49 cm F: 2.7 - 3.3 LA Vol/ BSA Biplane s A-L 42.1 mL/m2 RA Area A4C 16.99 cm2 LA Area A4C s MOD 23.97 cm2 RA Vol/ BSA A4C s A-L 22.3 mL/m2 LA Area A2C s MOD 25.28 cm2 Ao Asc Diam d 2.84 cm F: 2.3 - 3.1 LV EF A4C MOD 58.1 % LV EF Teichholz 55.1 % LV EF A2C MOD 57.6 % LVEF (Carrero's) 59.19 % F: 54 - 74 LV EF Biplane MOD 59.2 % LV Volume 91.83 mL F: 46 - 106 SV 72.80 mL LV Volume Index 45.46 mL/m2 F: 29 - 61 SV Index 35.91 mL/m2 LV Vol Biplane MOD 123.0 mL FS 28.20 % M-Mode TAPSE 2.51 cm (M/F) >1.7 LV Diastology MV E' medial 0.065 (>0.07 m/s) E/A Ratio 2.6 LV E/e MED 28.25 (<14) MV E Vmax 1.83 (0.4-1.3 m/s) MV E' lateral 0.098 (>0.1 m/s) MV A Vmax 0.70 (0.4-1.3 m/s) LV E/e LAT 18.70 (<14) MV E/A Ratio 2.47 MV E/E' medial 28.27 MV E/E' lateral 18.73 Aortic Valve LVOT Area 2.91 cm2 AoV Area Vmax 1.13 cm2 LVOT Vmax 1.54 m/s AoV Area/ BSA (Vmax) 0.56 cm2/m2 LVOT Mean Denny. 0.97 m/s RIA Mean Denny. 0.97 cm2 LVOT Peak Grad 9.5 mmHg RIA Mean Denny. Index 0.48 cm2/m2 LVOT Mean Grad 4.5 mmHg LVOT VTI 0.336 m LVOT Diam s 1.90 cm AoV Vmax 3.97 m/s Velocity Ratio 0.38 AoV Mean Denny. 2.90 m/s AoV Peak Grad 63.2 mmHg LVOT SV 97.69 mL AoV Mean Grad 37.0 mmHg AoV VTI 0.841 m AoV Area VTI 1.16 cm2 AoV Area/ BSA (VTI) 0.57 cm/m2 Mitral Valve MV DT 317 (160-240 msec) MR Vmax 5.38 m/s MV PHT 92 msec MR VTI 1.424 m MV Area PHT 2.39 cm2 MR Peak Grad 115.7 mmHg MV VTI 0.491 m MR Mean Grad 91.4 mmHg MV VTI Annulus 0.499 m MV Area VTI 2.02 (4.0-6.0 cm2) Pulmonary Valve PV Vmax 1.69 (0.5-1.5 m/s) RVOT Peak Gr. 4.10 mmHg PV Peak Grad 11.5 mmHg RVOT Mean Gr. 2.00 mmHg PV Mean Grad 5.3 mmHg RVOT VTI 0.209 m PV VTI 0.315 m RVOT Vmax 1.01 m/s Tricuspid Valve TR Peak Grad 64.2 mmHg TR Vmax 4.01 m/s RA Pressure 3.00 mmHg RVSP (TR) 67.3 mmHg
== END ==
PROVIDERS: PCP Family Medicine; Visit Provider Internal Medicine Cardiovascular Disease
DX: I48.91 Unspecified atrial fibrillation (principal); I08.0 Rheumatic disorders of both mitral and aortic valves
CPT/HCPCS: 93306

== ENCOUNTER → 2021-01-26 13:05 | Outpatient (BNVA) | payer MEDICARE, SELFPAY | PROVIDERS: PCP Family Medicine; Referring Provider Family Medicine; Visit Provider Internal Medicine Cardiovascular Disease | DX: I35.0 Nonrheumatic aortic (valve) stenosis (principal); I48.91 Unspecified atrial fibrillation; Z79.01 Long term (current) use of anticoagulants; I10 Essential (primary) hypertension | CPT/HCPCS: 99214; 99215 ==

== ENCOUNTER 2021-02-13 01:39 | Outpatient (CLI) | payer MEDICARE, SELFPAY ==
[2021-02-13 14:40] LABS: Anion Gap 13.4 mmol/L (3-11); BUN 23 mg/dL (7-18); CO2 24.6 mmol/L (21.0-32.0); CREATININE 1.4 mg/dL (0.55-1.02); Calcium 9.2 mg/dL (8.5-10.1); Chloride 103 mmol/L (98-107); Estimated GFR 36.76 (mL/min/1.73m2); Glucose 139 mg/dL (74-106); Magnesium 2.1 mg/dL (1.8-2.4); Potassium 4.5 mmol/L (3.5-5.1); Sodium 141 mmol/L (136-145)
== END 2021-02-13 01:40 | disposition home or self-care (01) ==
LOC: LBO 01:39
PROVIDERS: PCP Family Medicine; Visit Provider Physician Assistant Medical
DX: E11.69 Type 2 diabetes mellitus with other specified complication (principal); I48.0 Paroxysmal atrial fibrillation; Z79.899 Other long term (current) drug therapy
CPT/HCPCS: 36415; 80048; 83735

== ENCOUNTER 2021-02-28 09:15 | Emergency (ER) | payer MEDICARE, SELFPAY ==
[2021-02-28] VITALS (13 sets, daily range): BP systolic 129–160; BP diastolic 57–71; PULSE 68–89; RESP 16–25; TEMP 36.5; O2SAT 92–96
[2021-02-28 09:41] LABS: Abs Immature Grans 0.12 10^3/uL (0.0-0.06); Absolute Basophil Count 0.07 10^3/uL (0.0-0.2); Basophils % 0.5; Eosinophils % 3.5; HCT 36.3 % (36.0-46.0); HGB 11.1 g/dL (11.2-15.7); Immature Grans % 0.9; Lymphocytes % 18.7; MCH 28.4 pg (27.0-33.0); MCHC 30.6 % (32.0-36.0); MCV 92.8 fL (80-95); MPV 9.3 fL (8.0-11.0); Monocytes % 7.2; Neutrophils % 69.2; Nucleated RBC 0 %; Platelet Count 486 10^3/uL (130-400); RBC 3.91 10^6/uL (3.93-5.22); RDW 17.5 % (11.7-14.6); RDW-SD 58.8 fL; WBC 13.88 10^3/uL (4.4-10.8)
--- NOTE | 2021-02-28 09:48 | W.ED.GENAD ---
Discharge Plan Disposition Patient Disposition: HOME Condition: Stable Discharge Details Clinical Impression: GI bleed Primary Care Provider: Cesar Nye ED Provider: Yan Centeno Home Meds and New Rx's Prescriptions: New famotidine [Pepcid] 40 mg tablet 40 mg PO QHS Qty: 14 RF: 0 Continued albuterol sulfate 90 mcg/actuation HFA aerosol inhaler 2 puff IH QID PRNRF: 0 colchicine 0.6 mg tablet 0.6 mg PO DAILY PRNRF: 0 acetaminophen [Tylenol] 325 mg tablet 325 - 650 mg PO Q4H PRN PRN (Reason: pain) Qty: 30 RF: 0 magnesium chloride 64 mg tablet,delayed release (DR/EC) 64 mg PO BID Qty: 180 RF: 3 (DME) blood sugar diagnostic Strip See Dose Instructions .ROUTE .MEDSUPPLY Qty: 400 RF: 3 allopurinol 300 mg tablet 300 mg PO DAILY Qty: 90 RF: 3 Eliquis 5 mg tablet 5 mg PO BID Qty: 60 RF: 11 metoprolol succinate 100 mg tablet extended release 24 hr 100 mg PO DAILY Qty: 90 RF: 3 simvastatin 10 mg tablet 10 mg PO QPM Qty: 90 RF: 3 furosemide [Lasix] 20 mg tablet 20 mg PO BID Qty: 180 RF: 3 levothyroxine 25 mcg tablet 25 - 37.5 mcg PO DAILY Qty: 90 RF: 6 dofetilide 500 mcg capsule 500 mcg PO Q12H Qty: 60 RF: 11 metformin 500 mg tablet 500 mg PO BID Qty: 180 RF: 3 Discharge Instructions Instructions: Rectal Bleeding (ED) Additional Instructions: At this time your laboratory values reveal a stable H&H, your stool sample is positive for microscopic blood. Your vital signs are hemodynamically stable. Please take Pepcid as directed. Watch for new or worsening symptoms and return to the ER for any concerns. I have placed you on the care management list to help expedite outpatient surgical care as you may need an endoscopy for further evaluation. I would also like you to contact your primary care provider on Tuesday to discuss your ER visit and need for outpatient reevaluation. Medical Decision Making This is a 75-year-old female, multiple comorbidities, takes apixaban daily, presents after noticing dark stools 1 time yesterday and one time this morning. She denies dizziness, weakness, nausea, vomiting or abdominal pain, prior blood in her stools. Patient states that she did have a bleeding ulcer in the past roughly 4 years ago. Would estimate that she had a colonoscopy roughly around that time, unsure of her last endoscopy. Patient states that she otherwise feels well and has no additional concerns or complaints. Clinically she appears well, nontoxic, blood pressure 160/71, pulse 89, she appears hemodynamically stable. Abdomen is soft, nontender. Stool appears dark, guaiac positive. Will obtain IV access, routine laboratory values, and give IV fluid. We will also give IV Pepcid and Protonix Laboratory values reveal mild nonspecific leukocytosis of 13.88, hemoglobin 11.1 hematocrit 36.3 platelet count 486. Patient reports that just 2 weeks ago her hemoglobin was 11.0. INR 1.3 PT 12.7 sodium, potassium, chloride,, dioxide all unremarkable. BUN 38 creatinine 1.2 with a GFR of 43.91. Patient received both IV medications as well as 1 L IV fluid. She remains hemodynamically stable. Abdomen is soft, nontender, I see no clear indication for emergent CT imaging. There is also no clear indication for emergent transfusion. Patient appears well, nontoxic and is stable. Plan will be to initiate oral Pepcid care, place her on the care management list to help expedite outpatient surgical care, she will likely require an endoscopy. Also recommend that she contact her primary care provider Tuesday to discuss her ER visit need for outpatient reevaluation. Strict discharge and return precautions given. Patient appears well, nontoxic, abdomen certainly nonsurgical, extremely low suspicion for acute perforation secondary to ulcer. Patient and family have no additional questions or concerns and are comfortable discharge at this time. Medical Records Medical records reviewed: Yes I reviewed the patient's medical records. Lab Data Lab results reviewed: Yes I reviewed the patient's lab results. Labs: Laboratory Tests Range/Units 02/28/21 02/28/21 02/28/21 09:30 09:30 09:30 WBC (4.4-10.8) 10^3/uL 13.88 H RBC (3.93-5.22) 10^6/uL 3.91 L Hgb (11.2-15.7) g/dL 11.1 L Hct (36.0-46.0) % 36.3 MCV (80-95) fL 92.8 MCH (27.0-33.0) pg 28.4 MCHC (32.0-36.0) % 30.6 L RDW (11.7-14.6) % 17.5 H Plt Count (130-400) 10^3/uL 486 H MPV (8.0-11.0) fL 9.3 Immature Gran % 0.9 Neutrophils % 69.2 Lymphocytes % 18.7 Monocytes % 7.2 Eosinophils % 3.5 Basophils % 0.5 Nucleated RBC % % 0 Absolute Neutrophils (1.2-6.7) 10^3/uL 9.60 H Absolute Lymphocytes (1.2-3.4) 10^3/uL 2.60 Absolute Monocytes (0.1-0.8) 10^3/uL 1.00 H Absolute Eosinophils (0.0-0.7) 10^3/uL 0.49 Absolute Basophils (0.0-0.2) 10^3/uL 0.07 PT Cancelled INR Cancelled Sodium (136-145) mmol/L 140 Potassium (3.5-5.1) mmol/L 4.0 Chloride (98-107) mmol/L 100 Carbon Dioxide (21.0-32.0) mmol/L 27.5 Anion Gap (3-11) mmol/L 12.5 H BUN (7-18) mg/dL 38 H Creatinine (0.55-1.02) mg/dL 1.2 H Estimated GFR/1.73 m2 (mL/min/1.73m2) 43.91 Glucose (74-106) mg/dL 140 H Calcium (8.5-10.1) mg/dL 10.4 H Total Bilirubin (0.2-1.0) mg/dL 0.4 AST (15-37) U/L 37 ALT (14-59) U/L 30 Alkaline Phosphatase (46-116) U/L 70 Total Protein (6.4-8.2) g/dL 9.1 H Albumin (3.4-5.0) g/dL 3.7 Range/Units 02/28/21 09:45 WBC (4.4-10.8) 10^3/uL RBC (3.93-5.22) 10^6/uL Hgb (11.2-15.7) g/dL Hct (36.0-46.0) % MCV (80-95) fL MCH (27.0-33.0) pg MCHC (32.0-36.0) % RDW (11.7-14.6) % Plt Count (130-400) 10^3/uL MPV (8.0-11.0) fL Immature Gran % Neutrophils % Lymphocytes % Monocytes % Eosinophils % Basophils % Nucleated RBC % % Absolute Neutrophils (1.2-6.7) 10^3/uL Absolute Lymphocytes (1.2-3.4) 10^3/uL Absolute Monocytes (0.1-0.8) 10^3/uL Absolute Eosinophils (0.0-0.7) 10^3/uL Absolute Basophils (0.0-0.2) 10^3/uL PT 12.7 H INR 1.3 H Sodium (136-145) mmol/L Potassium (3.5-5.1) mmol/L Chloride (98-107) mmol/L Carbon Dioxide (21.0-32.0) mmol/L Anion Gap (3-11) mmol/L BUN (7-18) mg/dL Creatinine (0.55-1.02) mg/dL Estimated GFR/1.73 m2 (mL/min/1.73m2) Glucose (74-106) mg/dL Calcium (8.5-10.1) mg/dL Total Bilirubin (0.2-1.0) mg/dL AST (15-37) U/L ALT (14-59) U/L Alkaline Phosphatase (46-116) U/L Total Protein (6.4-8.2) g/dL Albumin (3.4-5.0) g/dL HPI General Mode of arrival: ambulatory. Date/Time Provider Initiated Documentation: 02/28/21 09:21. Limitations to Documentation: no limitations. Information obtained by: patient. HPI Narrative: This is a 75-year-old female with extensive past medical history that includes aortic stenosis, A. fib, CHF, diabetes, diverticulitis, hypertension, bleeding ulcer, hypothyroidism, takes apixaban daily, reporting dark stools last night and this morning or with bowel movements. Patient states that she had similar symptoms approximately 4 years ago and was diagnosed with a bleeding ulcer, placed on oral medication and symptoms subsequently resolved, is no longer taking those medications. Patient denies any fever, neck pain, chest pain, reports chronic shortness of breath that is unchanged today, abdominal pain, nausea, vomiting, bright red blood in her stools, hematuria, any other easy bruising or bleeding. Patient states that she is scheduled to see her awning installer on 06 March. States that she had laboratory values done at [facility] 2 weeks ago, reports that her hemoglobin at that time was 11.0. Patient otherwise feels well, no additional questions or concerns. Related Data Home Medications Medication Instructions Recorded Confirmed albuterol sulfate 90 mcg/actuation 2 puff IH QID PRN 04/17/18 02/28/21 aerosol inhaler acetaminophen 325 mg tablet 325 - 650 mg PO Q4H PRN PRN #30 tab 05/24/18 02/28/21 colchicine 0.6 mg tablet 0.6 mg PO DAILY PRN 12/17/18 02/28/21 magnesium chloride 64 mg 64 mg PO BID #180 tab 04/04/20 02/28/21 (magnesium chloride) tablet,delayed release blood sugar diagnostic #400 each NS 07/29/20 02/28/21 allopurinol 300 mg tablet 300 mg PO DAILY #90 tab 08/12/20 02/28/21 apixaban 5 mg tablet 5 mg PO BID #60 tab 08/13/20 02/28/21 furosemide 20 mg tablet 20 mg PO BID #180 tab 08/13/20 02/28/21 metoprolol succinate 100 mg 100 mg PO DAILY #90 tab 08/13/20 02/28/21 tablet,extended release 24 hr simvastatin 10 mg tablet 10 mg PO QPM #90 tab 08/13/20 02/28/21 levothyroxine 25 mcg tablet 25 - 37.5 mcg PO DAILY #90 tab 08/15/20 02/28/21 dofetilide 500 mcg capsule 500 mcg PO Q12H #60 cap 11/20/20 02/28/21 metformin 500 mg tablet 500 mg PO BID #180 tab 01/02/21 02/28/21 famotidine [Pepcid] 40 mg PO QHS #14 tab 02/28/21 Previous Rx's Medication Instructions Recorded acetaminophen 325 mg tablet 325 - 650 mg PO Q4H PRN PRN #30 tab 05/24/18 magnesium chloride 64 mg 64 mg PO BID #180 tab 04/04/20 (magnesium chloride) tablet,delayed release blood sugar diagnostic #400 each NS 07/29/20 allopurinol 300 mg tablet 300 mg PO DAILY #90 tab 08/12/20 apixaban 5 mg tablet 5 mg PO BID #60 tab 08/13/20 furosemide 20 mg tablet 20 mg PO BID #180 tab 08/13/20 metoprolol succinate 100 mg 100 mg PO DAILY #90 tab 08/13/20 tablet,extended release 24 hr simvastatin 10 mg tablet 10 mg PO QPM #90 tab 08/13/20 levothyroxine 25 mcg tablet 25 - 37.5 mcg PO DAILY #90 tab 08/15/20 dofetilide 500 mcg capsule 500 mcg PO Q12H #60 cap 11/20/20 metformin 500 mg tablet 500 mg PO BID #180 tab 01/02/21 famotidine [Pepcid] 40 mg PO QHS #14 tab 02/28/21 Allergies Allergy/AdvReac Type Severity Reaction Status Date / Time aspirin Allergy Hives Verified 02/28/21 09:24 Penicillins Allergy Verified 02/28/21 09:24 tetracycline Allergy Verified 02/28/21 09:24 adhesive AdvReac Intermediate Topical Verified 02/28/21 09:24 Irritation General Stated Complaint: GI Bleed BROOKE: 2 Review of Systems Constitutional Constitutional: Denies fatigue, Denies fever(s), Denies headache(s) and Denies weakness ENT Ears, Nose, Mouth, and Throat: Denies headache(s) and Denies neck pain Cardiovascular Cardiovascular: Denies chest pain and Reports dyspnea Respiratory Respiratory: Reports dyspnea Gastrointestinal Gastrointestinal: Denies abdominal pain, Reports melena, Denies hematochezia, Denies constipation, Denies diarrhea, Denies nausea, Denies vomiting and Denies hematemesis Musculoskeletal Musculoskeletal: Denies back pain and Denies neck pain Integumentary/Breasts Skin/Breast: Denies rash Neurologic Neurologic: Denies headache(s) and Denies weakness Endocrine Endocrine: Denies fatigue Hematologic/Lymphatic Hematologic/Lymphatic: Reports easy bleeding and Reports easy bruising [facility] Medical History (Updated 02/28/21 @ 11:10 by PARESH Rock) Aortic stenosis, moderate Atrial fibrillation Status post ablation at Congestive heart failure (CHF) (06/25/14) diastolic dysfunction (10/18 echo LVH with EF 65%) ECHO 2015 - Dr Valentine Diabetes type 2, controlled Diverticulitis Status post partial large bowel resection Essential hypertension (08/13/13) GI bleeding Gout Hyperkalemia Hyperlipidemia Hypothyroid Surgical History Abdominal hysterectomy Appendectomy Bilateral salpingectomy with oophorectomy H/O hysterectomy for benign disease History of appendectomy History of esophagogastroduodenoscopy (EGD) (~05/2018) 07/10/18 Recurrent major depression in partial remission (~10/2012) Replacement of total knee joint (~12/2007) [facility] [place]; B/L S/P colonoscopy (~07/10/18) Sigmoidoscopy (~08/2009) OPEN SIGMOID RESECTION W/ TAKE DOWN OF FISTULOUS TRACT; DR. YAN VEGA. Family History Mother , 65 Thoracic aneurysm, ruptured Personal history of malignant neoplasm LYMPHOMA Father , 64 Heart disease Myocardial infarction Stroke Maternal Grandfather , 80 Heart disease Stroke Paternal Grandfather , 65 Heart disease Maternal Grandmother , 83 Heart disease Paternal Grandmother , 40 Cancer Son No problems noted. Son No problems noted. 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 Pets and animals: Yes Pets and animals: dog(s) Sexually active: Yes Do you think of yourself as: straight/heterosexual Current gender identity: female What is your relationship status?: How often do you talk on the phone with friends or family?: three or more times per week How often do you get together with friends or relatives?: three or more times per week How often do you attend judaism or restoration services?: 4 or more times per year Do you belong to any clubs or organized social groups?: no Panel score (0-1 are the most socially isolated patients): 3 What type of physical activity do you participate in: walking Duration: < 15 minutes/day Frequency: 1-2 times per week Radha/Confucianist: Gnosticism Special radha needs: No Seatbelt use: always Drive intox or ride w/intox company 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: No Do you feel safe at home: Yes Do you feel safe in your relationship?: Yes Exam Const General: cooperative, healthy appearing, comfortable and no acute distress Nutritional Appearance: obese Orientation: alert, awake and oriented x3 HENMT Head: normal to inspection, normocephalic and atraumatic Face and sinus: normal facial exam Mouth: moist mucous membranes Eyes General: appearance normal, both eyes and all related structures Conjunctivae: conjunctivae normal Neck Neck: normal visual inspection, full ROM, trachea midline and supple Resp Effort & Inspection: normal respiratory effort and able to speak in complete sentences Auscultation: clear to auscultation bilaterally Cardio Rate: regular rate Rhythm: regular rhythm Heart Sounds: murmur GI Inspection: normal to inspection and obesity Palpation: soft, not firm, no guarding, no pulsatile masses and nontender Auscultation: normal bowel sounds Rectal Exam - female: visual inspection normal, normal sphincter tone, abnormal stool Rectal exam abnormal stool - female: black stool (Dark brown-black) and heme positive stool Back/Spine/Pelvis Back: No back tenderness Skin General skin exam: no rashes or lesions noted Neuro General: patient alert, patient awake, moves all extremities and no focal motor deficits Cognition: normal cognition Speech: speech normal Gait: normal gait Motor: muscle tone normal throughout Sensory Exam: no sensory deficits noted Extrem General: normal to inspection and full ROM Psych Appearance: grossly normal Mental Status: mental status grossly normal Course Vital Signs Vital signs: Vital Signs Temperature 36.5 C 02/28/21 09:18 Pulse 89 02/28/21 09:18 Respiratory Rate 02/28/21 09:18 Blood Pressure 160/71 H 02/28/21 09:18 Pulse Oximetry 95 02/28/21 09:18 Temperature 36.5 C 02/28/21 09:18 Temperature Source Temporal Artery Scan 02/28/21 09:18 Pulse 89 02/28/21 09:18 Respiratory Rate 20 02/28/21 09:18 Respiratory Effort Non-Labored 02/28/21 09:23 Blood Pressure 160/71 H 02/28/21 09:18 Blood Pressure Position Supine 02/28/21 09:18 Pulse Oximetry 95 02/28/21 09:18 Oxygen Delivery Method Room Air 02/28/21 09:18 Oxygen Flow Rate 0 02/28/21 09:18 Pain Level 4 02/28/21 09:18 Lab/Test Results Lab/Test Results: Laboratory Tests Range/Units 02/28/21 09:30 PT Cancelled INR Cancelled
[2021-02-28 09:50] LABS: Absolute Eosinophil Count 0.49 10^3/uL (0.0-0.7)
[2021-02-28] MEDS: Normal Saline 1,000 ML 1000 ML IV (09:50)
[2021-02-28 09:56] LABS: ALT 30 U/L (14-59); AST 37 U/L (15-37); Albumin 3.7 g/dL (3.4-5.0); Alkaline Phosphatase 70 U/L (46-116); Anion Gap 12.5 mmol/L (3-11); BUN 38 mg/dL (7-18); Bilirubin, Total 0.4 mg/dL (0.2-1.0); CO2 27.5 mmol/L (21.0-32.0); CREATININE 1.2 mg/dL (0.55-1.02); Calcium 10.4 mg/dL (8.5-10.1); Chloride 100 mmol/L (98-107); Estimated GFR 43.91 (mL/min/1.73m2); Glucose 140 mg/dL (74-106); Sodium 140 mmol/L (136-145); Total Protein 9.1 g/dL (6.4-8.2)
[2021-02-28] MEDS: Pantoprazole 40 MG VIAL 80 MG IVP (10:00)
[2021-02-28] MEDS: FAMOTIDINE 20 MG/50 ML BAG 100 MG IVPB (10:02)
[2021-02-28 10:07] LABS: INR 1.3 (0.9-1.1); Prothrombin Time 12.7 sec (9.3-11.0)
--- NOTE | 2021-02-28 10:39 | NUR.NOTE ---
Nursing Note: Referral faxed to [facility], [place], for upper GI bleed on Apixaban, Prisca Can
== END 2021-02-28 11:20 | disposition home or self-care (01) ==
PROVIDERS: Emergency Provider Physician Assistant; PCP Family Medicine
DX: K92.2 Gastrointestinal hemorrhage, unspecified (principal)
CPT/HCPCS: 36415; 80053; 96361; 96365; 96366; 96375; 99284; 85025; 85610

== ENCOUNTER → 2021-03-06 12:53 | Outpatient (BNVA) | payer MEDICARE, SELFPAY | PROVIDERS: PCP Family Medicine; Visit Provider Internal Medicine Cardiovascular Disease | DX: I35.0 Nonrheumatic aortic (valve) stenosis (principal); I48.0 Paroxysmal atrial fibrillation; I50.30 Unspecified diastolic (congestive) heart failure; I11.0 Hypertensive heart disease with heart failure; Z79.01 Long term (current) use of anticoagulants | CPT/HCPCS: 99214 ==

== ENCOUNTER 2021-05-08 01:17 | Outpatient (CLI) | payer MEDICARE, SELFPAY ==
[2021-05-08 11:35] LABS: Abs Immature Grans 0.11 10^3/uL (0.0-0.06); Absolute Eosinophil Count 0.28 10^3/uL (0.0-0.7); Absolute Lymphocyte Count 2.19 10^3/uL (1.2-3.4); Absolute Monocyte Count 0.91 10^3/uL (0.1-0.8); Basophils % 0.7; Eosinophils % 2.3; HCT 31.3 % (36.0-46.0); HGB 8.7 g/dL (11.2-15.7); Immature Grans % 0.9; Lymphocytes % 18.2; MCH 23.6 pg (27.0-33.0); MCHC 27.8 % (32.0-36.0); MCV 85.1 fL (80-95); MPV 8.3 fL (8.0-11.0); Monocytes % 7.6; Neutrophils % 70.3; Nucleated RBC 0 %; Platelet Count 523 10^3/uL (130-400); RBC 3.68 10^6/uL (3.93-5.22); RDW 18.9 % (11.7-14.6); RDW-SD 57.7 fL; WBC 12.03 10^3/uL (4.4-10.8)
[2021-05-08 11:51] LABS: Hemoglobin A1C 7.3 % (<5.7)
[2021-05-08 11:55] LABS: Absolute Basophil Count 0.08 10^3/uL (0.0-0.2); Absolute Neutrophil Count 8.46 10^3/uL (1.2-6.7)
[2021-05-08 12:51] LABS: COMMENT (LAB VIEW ONLY) 27.12 mg/dL; Microalb ug/mg Crea 34.7 ug/mg Cr
[2021-05-08 12:52] LABS: BUN 33 mg/dL (7-18); CREATININE 1.4 mg/dL (0.55-1.02); Calcium 9.5 mg/dL (8.5-10.1); Calculated LDL 89 mg/dL (<100); Chloride 102 mmol/L (98-107); Cholesterol 163 mg/dL (<200); Estimated GFR 36.76 (mL/min/1.73m2); Glucose 109 mg/dL (74-106); HDL Cholesterol 39 mg/dL (40-60); Potassium 4.4 mmol/L (3.5-5.1); Sodium 141 mmol/L (136-145); Triglyceride 175 mg/dL (<150)
== END 2021-05-08 01:18 | disposition home or self-care (01) ==
LOC: LBO 01:17
PROVIDERS: PCP Family Medicine; Visit Provider Family Medicine
DX: K92.2 Gastrointestinal hemorrhage, unspecified (principal); Z11.9 Encounter for screening for infectious and parasitic diseases, unspecified
CPT/HCPCS: 36415; 80048; 80061; 82043; 82570; 83036; 85025

== ENCOUNTER 2021-05-10 11:01 | Inpatient (IN) | payer MEDICARE, SELFPAY ==
[2021-05-10] VITALS (116 sets, daily range): BP systolic 101–141; BP diastolic 55–91; PULSE 73–153; RESP 14–28; TEMP 36.4–37.4; O2SAT 89–98
--- NOTE | 2021-05-10 11:15 | RT.EKG_ITS ---
APPROVED REPORT Exam: Resting ECG Reason for Exam: rapid heart rate Patient Location: E HR:123 bpm ECG Measurements Heart Rate 123 AXIS LA 194 P -87 QRSd 103 QRS -50 QT 371 T 82 QTc 540 Conclusion Sinus or ectopic atrial tachycardia...P axis (-45,135), rate> 99 Paired ventricular premature complexes...sequence of 2 V complexes atrial fibrillation LAD, consider left anterior fascicular block...axis(240,-40), S>R II III aVF Prolonged QT interval...QTc >500mS
--- NOTE | 2021-05-10 11:30 | DI.RAD_ITS ---
Exam(s) XR PORTABLE CHEST AP EXAM: XR PORTABLE CHEST AP CLINICAL HISTORY: recent aortic valve replacement, afib TECHNIQUE: 2D digital imaging was performed of the chest. One image was obtained. An AP view was ob tained. COMPARISON: CR,XR XR PORTABLE CHEST AP from 06/23/2019 FINDINGS: MEDIASTINUM: Normal. HEART: Mild cardiomegaly. There is a prosthetic valve. PULMONARY VASCULATURE: Thoracic aortic calcification. No pulmonary venous congestion. LUNGS: No focal consolidating infiltrate. PLEURAL SPACE: No pleural effusion or pneumothorax. BONE:Within normal limits for the patient's age. Degenerative changes. OTHER FINDINGS:Normal. IMPRESSION: Cardiomegaly. No findings to suggest CHF or pneumonia. DATA REPOSITORY: RADIATION DOSE DELIVERED:
[2021-05-10 11:42] LABS: Abs Immature Grans 0.07 10^3/uL (0.0-0.06); Absolute Basophil Count 0.05 10^3/uL (0.0-0.2); Absolute Eosinophil Count 0.31 10^3/uL (0.0-0.7); Absolute Lymphocyte Count 2.38 10^3/uL (1.2-3.4); Absolute Neutrophil Count 6.75 10^3/uL (1.2-6.7); Basophils % 0.5; Eosinophils % 2.9; HCT 31.4 % (36.0-46.0); Immature Grans % 0.7; Lymphocytes % 22.5; MCH 24.3 pg (27.0-33.0); MCHC 28.7 % (32.0-36.0); MCV 84.9 fL (80-95); MPV 8.8 fL (8.0-11.0); Monocytes % 9.5; Neutrophils % 63.9; Nucleated RBC 0 %; Platelet Count 562 10^3/uL (130-400); RDW 18.8 % (11.7-14.6); RDW-SD 57.4 fL; WBC 10.56 10^3/uL (4.4-10.8)
[2021-05-10 11:42] LABS: Source Nasal/Nares
[2021-05-10] MEDS: dilTIAZem 25 MG/5 ML VIAL 20 MG IVP (11:45)
[2021-05-10 12:02] LABS: NT-proBNP 1585 pg/mL (<300)
[2021-05-10 12:07] LABS: ALT 22 U/L (14-59); AST 28 U/L (15-37); Albumin 3.5 g/dL (3.4-5.0); Alkaline Phosphatase 74 U/L (46-116); Anion Gap 9.6 mmol/L (3-11); BUN 33 mg/dL (7-18); Bilirubin, Total 0.3 mg/dL (0.2-1.0); CO2 29.4 mmol/L (21.0-32.0); CREATININE 1.8 mg/dL (0.55-1.02); Calcium 9.7 mg/dL (8.5-10.1); Chloride 102 mmol/L (98-107); Glucose 102 mg/dL (74-106); Magnesium 2.3 mg/dL (1.8-2.4); Potassium 4.3 mmol/L (3.5-5.1); Sodium 141 mmol/L (136-145); TSH 4.97 uIU/mL (0.36-3.74); Total Protein 9.3 g/dL (6.4-8.2); Troponin I < 0.05 ng/mL (<0.06)
[2021-05-10 12:51] LABS: COVID-19 PCR Negative (Negative)
--- NOTE | 2021-05-10 12:52 | DI.VRAD_ITS ---
PROCEDURE INFORMATION: Exam: XR Chest Exam date and time: 05/10/2021 11:32 AM Age: 75 years old Clinical indication: Other: Recent aortic valve replacement, afib TECHNIQUE: Imaging protocol: XR of the chest. Views: 1 view. COMPARISON: CR XR PORTABLE CHEST AP 23/06/2019 01:10 FINDINGS: Scan quality: The patient is rotated ANDERS. Lungs: The lungs show some chronic coarsening of interstitial markings in the bases but no new focal infiltrate is seen. There is no discrete nodule. Pleural spaces: No pleural effusion or pneumothorax is apparent. Heart/Mediastinum: See Vasculature finding. Vasculature: Heart size remains mildly enlarged but without significant vascular congestion. Prosthetic aortic valve is noted. Aorta is calcified. Bones/joints: Degenerative changes are noted in the right shoulder. IMPRESSION: Mild cardiomegaly without significant vascular congestion. No new acute abnormality. Dictated and Authenticated by: Slava Kim MD. Ordering:GARY Vargas MD
[2021-05-10] MEDS: Furosemide 20 MG/2 ML VIAL IVP (14:06)
--- NOTE | 2021-05-10 14:30 | RT.EKG_ITS ---
APPROVED REPORT Exam: Resting ECG Reason for Exam: sob Patient Location: E HR:101 bpm ECG Measurements Heart Rate 101 AXIS [place] 173 P 0 QRSd 105 QRS -44 QT 399 T 55 QTc 519 Conclusion Sinus tachycardia with irregular rate...V-rate 83-124, variation>10% Left axis deviation...QRS axis (-30,-90) Prolonged QT interval...QTc >500mS afib?
[2021-05-10] MEDS: dilTIAZem CD 120 MG CAPCR PO (14:46)
--- NOTE | 2021-05-10 14:46 | W.ED.GENAD ---
Discharge Plan Disposition Patient Disposition: [facility] INPATIENT Condition: Serious Discharge Details Clinical Impression: Atrial fibrillation, CKD (chronic kidney disease), CHF (congestive heart failure), Anemia Primary Care Provider: Kimberly Nicole ED Provider: Alicia Maguire Home Meds and New Rx's Prescriptions: No Action albuterol sulfate 90 mcg/actuation HFA aerosol inhaler 2 puff IH QID PRNRF: 0 clopidogrel [Plavix] 75 mg tablet 75 mg PO DAILY RF: 0 metoprolol succinate 100 mg tablet extended release 24 hr 50 mg PO DAILY RF: 0 colchicine 0.6 mg tablet 0.6 mg PO DAILY PRNRF: 0 famotidine [Pepcid] 40 mg tablet 40 mg PO QHS Qty: 30 RF: 1 acetaminophen [Tylenol] 325 mg tablet 325 - 650 mg PO Q4H PRN PRN (Reason: pain) Qty: 30 RF: 0 (DME) blood sugar diagnostic Strip See Dose Instructions .ROUTE .MEDSUPPLY Qty: 400 RF: 3 allopurinol 300 mg tablet 300 mg PO DAILY Qty: 90 RF: 3 Eliquis 5 mg tablet 5 mg PO BID Qty: 60 RF: 11 simvastatin 10 mg tablet 10 mg PO QPM Qty: 90 RF: 3 furosemide [Lasix] 20 mg tablet 20 mg PO BID Qty: 180 RF: 3 levothyroxine 25 mcg tablet 25 - 37.5 mcg PO DAILY Qty: 90 RF: 6 dofetilide 500 mcg capsule 500 mcg PO Q12H Qty: 60 RF: 11 metformin 500 mg tablet 500 mg PO BID Qty: 180 RF: 3 magnesium chloride 64 mg tablet,delayed release (DR/EC) 64 mg PO BID Qty: 180 RF: 3 Medical Decision Making Patient is having signs and symptoms of CHF although her x-ray shows cardiomegaly without vascular congestion Troponin negative, EKG without obvious ischemia Case discussed with Dr. Galindo, cardiology at [id number], she is going to talk to electrophysiology in an attempt to transfer patient to [facility] and pending return call at this time Did review prior echocardiogram with severe aortic stenosis Like She Had a Complicated Procedure with Injuries to Iliac Artery She Appears to Be Hemodynamically Stable at This Time, Her Hemoglobin and Hematocrit Are Stable for Patient This Was Compared to Prior I Also Considered Pulmonary Embolism Although Patient Has Been Anticoagulated throughout This Evaluation and I Suspect That This Was Lower on the Differential X-Ray Reviewed with Radiologist Hemoglobin 9, hematocrit 31, improved from prior laboratory evaluation per cardiology at [facility] Spoke with Dr. Galindo, video games storywriter again from department, and patient has been accepted for tomorrow at [facility] by Skip Powell, cardiology They are unable to accept her tonight secondary to capacity, she will likely be cardioverted pharmacologically They would like us to discontinue her dofetilide for cardioversion and continue her Eliquis as prescribed This is a oral Cardizem was appropriate, she received 120 in the emergency room and has been relatively rate controlled, service feels that we should be less concerned regarding her weight and more concern regarding symptoms and that we should have a low threshold to cardiovert as she is appropriately anticoagulated on Eliquis should be need to They prefer that we do not perform any aggressive rate lowering intervention at this time If she is symptomatic, 25 mg of metoprolol as needed orally may be initiated in addition to her 50 mg extended release Care transferred to Skylar Pena, nurse practitioner pending admission to the hospital and likely transfer to [facility] tomorrow HPI General Mode of arrival: ambulatory. Date/Time Provider Initiated Documentation: 05/10/21 11:12. Limitations to Documentation: no limitations. Information obtained by: patient. HPI Narrative: This 75-year-old female with history of GI bleed, hyperlipidemia, hypertension, TAVR procedure 04/22/2021 hypothyroidism, diabetes, atrial fibrillation, chronically anticoagulated on Eliquis presents with report of atrial fibrillation, intermittent presyncope, shortness of breath for the past week. She states that she is been taking her prescribed medication. She was adjusted to 50 mg of metoprolol daily which she took this morning and her dofetilide. She states she also took her Eliquis this morning. But she is in persistently symptomatic since that time. She denies any fever or chills. She denies any falls or injuries. She states she has had some intermittent chest pain associated with rate control. She has been taking her Lasix prescribed, 20 mg. Denies prior history of coagulopathy. Denies calf pain or swelling. Related Data Home Medications Medication Instructions Recorded Confirmed albuterol sulfate 90 mcg/actuation 2 puff IH QID PRN 04/17/18 05/10/21 aerosol inhaler acetaminophen 325 mg tablet 325 - 650 mg PO Q4H PRN PRN #30 tab 05/24/18 05/10/21 colchicine 0.6 mg tablet 0.6 mg PO DAILY PRN 12/17/18 05/10/21 blood sugar diagnostic #400 each NS 07/29/20 04/29/21 allopurinol 300 mg tablet 300 mg PO DAILY #90 tab 08/12/20 05/10/21 apixaban 5 mg tablet 5 mg PO BID #60 tab 08/13/20 05/10/21 furosemide 20 mg tablet 20 mg PO BID #180 tab 08/13/20 05/10/21 simvastatin 10 mg tablet 10 mg PO QPM #90 tab 08/13/20 05/10/21 levothyroxine 25 mcg tablet 25 - 37.5 mcg PO DAILY #90 tab 08/15/20 05/10/21 dofetilide 500 mcg capsule 500 mcg PO Q12H #60 cap 11/20/20 05/10/21 metformin 500 mg tablet 500 mg PO BID #180 tab 01/02/21 05/10/21 famotidine 40 mg tablet 40 mg PO QHS #30 tab 03/04/21 05/10/21 magnesium chloride 64 mg 64 mg PO BID #180 tab 04/07/21 05/10/21 (magnesium chloride) tablet,delayed release clopidogrel 75 mg tablet 75 mg PO DAILY 04/29/21 05/10/21 metoprolol succinate 100 mg 50 mg PO DAILY tab 04/29/21 05/10/21 tablet,extended release 24 hr Previous Rx's Medication Instructions Recorded acetaminophen 325 mg tablet 325 - 650 mg PO Q4H PRN PRN #30 tab 05/24/18 blood sugar diagnostic #400 each NS 07/29/20 allopurinol 300 mg tablet 300 mg PO DAILY #90 tab 08/12/20 apixaban 5 mg tablet 5 mg PO BID #60 tab 08/13/20 furosemide 20 mg tablet 20 mg PO BID #180 tab 08/13/20 simvastatin 10 mg tablet 10 mg PO QPM #90 tab 08/13/20 levothyroxine 25 mcg tablet 25 - 37.5 mcg PO DAILY #90 tab 08/15/20 dofetilide 500 mcg capsule 500 mcg PO Q12H #60 cap 11/20/20 metformin 500 mg tablet 500 mg PO BID #180 tab 01/02/21 famotidine 40 mg tablet 40 mg PO QHS #30 tab 03/04/21 magnesium chloride 64 mg 64 mg PO BID #180 tab 04/07/21 (magnesium chloride) tablet,delayed release Allergies Allergy/AdvReac Type Severity Reaction Status Date / Time aspirin Allergy Hives Verified 05/10/21 11:27 Penicillins Allergy Verified 05/10/21 11:27 tetracycline Allergy Verified 05/10/21 11:27 adhesive AdvReac Intermediate Topical Verified 05/10/21 11:27 Irritation General Stated Complaint: Palpitatns BROOKE: 2 Review of Systems All systems reviewed & are unremarkable except as noted in HPI and below PFSH Medical History (Updated 05/10/21 @ 16:54 by PARESH Castillo) Congestive heart failure (CHF) (06/25/14) diastolic dysfunction (10/18 echo LVH with EF 65%) ECHO 2015 - Dr Valentine Diverticulosis Essential hypertension (08/13/13) Former smoker (08/16/14) 5 pack yr history Gout intermittent, diet based. Hyperlipidemia Peptic ulcer disease with hemorrhage hx x 3 Restless legs (01/18/13) sleep study low iron (not anemic) Severe aortic valve stenosis Status post aortic valve replacement [facility] [place] April 2021. SVT (supraventricular tachycardia) a. generally converts with Amiodarone Surgical History (Updated 04/29/21 @ 17:11 by Kimberly Nicole MD) History of esophagogastroduodenoscopy (EGD) (~05/2018) 07/10/18 History of open sigmoidectomy S/P aortic valve replacement (~04/22/21) Complicated by extravasation of contrast on iliofemoral angiography. 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 S/P colonoscopy (~07/10/18) Status post abdominal hysterectomy Status post appendectomy Status post total bilateral knee replacement Family History Mother , 65 Thoracic aneurysm, ruptured Personal history of malignant neoplasm LYMPHOMA Father , 64 Heart disease Myocardial infarction Stroke Maternal Grandfather , 80 Heart disease Stroke Paternal Grandfather , 65 Heart disease Maternal Grandmother , 83 Heart disease Paternal Grandmother , 40 Cancer Son No problems noted. Son No problems noted. 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 Pets and animals: Yes Pets and animals: dog(s) Sexually active: Yes Do you think of yourself as: straight/heterosexual Current gender identity: female What is your relationship status?: How often do you talk on the phone with friends or family?: three or more times per week How often do you get together with friends or relatives?: three or more times per week How often do you attend adventism or christianity services?: 4 or more times per year Do you belong to any clubs or organized social groups?: no Panel score (0-1 are the most socially isolated patients): 3 What type of physical activity do you participate in: walking Duration: < 15 minutes/day Frequency: 1-2 times per week Radha/Orthodoxy: [employer] Special radha needs: No Seatbelt use: always Drive intox or ride w/intox 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: No Do you feel safe at home: Yes Do you feel safe in your relationship?: Yes Exam Eyes Pupils: PERRL Chest Chest: normal inspection of the chest Resp Effort & Inspection: tachypneic Auscultation: clear to auscultation bilaterally Cardio Rate: regular rate Rhythm: regular rhythm GI Inspection: normal to inspection Auscultation: normal bowel sounds Skin General skin exam: no rashes or lesions noted Neuro General: patient alert, patient oriented x3 and CN's II-XI intact bilaterally Cranial Nerves: PERRL Extrem Other: 1+ edema to bilateral No pseudoaneurysm noted, some healing ecchymosis to right great, distal pulses intact Psych Speech and Movement: speech and movement normal Course Vital Signs Vital signs: Vital Signs Pulse Oximetry 92 05/10/21 11:19 Temperature 36.7 C 05/10/21 11:21 Temperature Source Skin 05/10/21 11:21 Pulse 86 05/10/21 14:30 Pulse 99 H 05/10/21 14:40 Respiratory Rate 19 05/10/21 14:20 Respiratory Effort 05/10/21 11:21 Blood Pressure 129/71 05/10/21 14:30 Blood Pressure Mean 85 05/10/21 14:30 Pulse Oximetry 98 05/10/21 14:40 Oxygen Delivery Method Nasal Cannula 05/10/21 11:21 Pain Level 4 05/10/21 11:21 Lab/Test Results Lab/Test Results: Laboratory Tests Range/Units 05/10/21 05/10/21 05/10/21 11:28 11:28 11:28 WBC (4.4-10.8) 10^3/uL 10.56 RBC (3.93-5.22) 10^6/uL 3.70 L Hgb (11.2-15.7) g/dL 9.0 L Hct (36.0-46.0) % 31.4 L MCV (80-95) fL 84.9 MCH (27.0-33.0) pg 24.3 L MCHC (32.0-36.0) % 28.7 L RDW (11.7-14.6) % 18.8 H Plt Count (130-400) 10^3/uL 562 H MPV (8.0-11.0) fL 8.8 Immature Gran % 0.7 Neutrophils % 63.9 Lymphocytes % 22.5 Monocytes % 9.5 Eosinophils % 2.9 Basophils % 0.5 Nucleated RBC % % 0 Absolute Neutrophils (1.2-6.7) 10^3/uL 6.75 H Absolute Lymphocytes (1.2-3.4) 10^3/uL 2.38 Absolute Monocytes (0.1-0.8) 10^3/uL 1.00 H Absolute Eosinophils (0.0-0.7) 10^3/uL 0.31 Absolute Basophils (0.0-0.2) 10^3/uL 0.05 Sodium (136-145) mmol/L 141 Potassium (3.5-5.1) mmol/L 4.3 Chloride (98-107) mmol/L 102 Carbon Dioxide (21.0-32.0) mmol/L 29.4 Anion Gap (3-11) mmol/L 9.6 BUN (7-18) mg/dL 33 H Creatinine (0.55-1.02) mg/dL 1.8 H Estimated GFR/1.73 m2 (mL/min/1.73m2) 27.50 Glucose (74-106) mg/dL 102 Calcium (8.5-10.1) mg/dL 9.7 Magnesium (1.8-2.4) mg/dL 2.3 Total Bilirubin (0.2-1.0) mg/dL 0.3 AST (15-37) U/L 28 ALT (14-59) U/L 22 Alkaline Phosphatase (46-116) U/L 74 Troponin I (<0.06) ng/mL < 0.05 NT-Pro-B Natriuret Pep (<300) pg/mL 1585 H Total Protein (6.4-8.2) g/dL 9.3 H Albumin (3.4-5.0) g/dL 3.5 TSH (0.36-3.74) uIU/mL 4.97 H COVID-19 Source SARS-CoV-2 (PCR) (Negative) Range/Units 05/10/21 05/10/21 11:32 11:36 WBC (4.4-10.8) 10^3/uL RBC (3.93-5.22) 10^6/uL Hgb (11.2-15.7) g/dL Hct (36.0-46.0) % MCV (80-95) fL MCH (27.0-33.0) pg MCHC (32.0-36.0) % RDW (11.7-14.6) % Plt Count (130-400) 10^3/uL MPV (8.0-11.0) fL Immature Gran % Neutrophils % Lymphocytes % Monocytes % Eosinophils % Basophils % Nucleated RBC % % Absolute Neutrophils (1.2-6.7) 10^3/uL Absolute Lymphocytes (1.2-3.4) 10^3/uL Absolute Monocytes (0.1-0.8) 10^3/uL Absolute Eosinophils (0.0-0.7) 10^3/uL Absolute Basophils (0.0-0.2) 10^3/uL Sodium (136-145) mmol/L Potassium (3.5-5.1) mmol/L Chloride (98-107) mmol/L Carbon Dioxide (21.0-32.0) mmol/L Anion Gap (3-11) mmol/L BUN (7-18) mg/dL Creatinine (0.55-1.02) mg/dL Estimated GFR/1.73 m2 (mL/min/1.73m2) Glucose (74-106) mg/dL Calcium (8.5-10.1) mg/dL Magnesium (1.8-2.4) mg/dL Total Bilirubin (0.2-1.0) mg/dL AST (15-37) U/L ALT (14-59) U/L Alkaline Phosphatase (46-116) U/L Troponin I (<0.06) ng/mL NT-Pro-B Natriuret Pep (<300) pg/mL Cancelled Total Protein (6.4-8.2) g/dL Albumin (3.4-5.0) g/dL TSH (0.36-3.74) uIU/mL COVID-19 Source Nasal/Nares SARS-CoV-2 (PCR) (Negative) Negative Critical Care Time Critical Care Time Critical Care Time: Yes Total Critical Care Time: 90 Attestation: IV Itzel, p.o. Cardikim, IV Lasix, Moore catheter placement, telemetry monitoring, consultation likely transferred to [facility], diagnostic imaging and lab
[2021-05-10 15:00] LABS: Troponin I 0.05 ng/mL (<0.06)
--- NOTE | 2021-05-10 15:04 | NUR.NOTE ---
Nursing Note: Bentley [phone]
--- NOTE | 2021-05-10 18:38 | W.PM.HP.N ---
Date of service: 05/10/21 Time of Service: 18:38 Assessment and Plan Assessment and plan (1) CHF (congestive heart failure): Status: Chronic Assessment and plan: CHF, precipitated by rapid AF. No signs valve dysfunction. Possibly some demand ischemia (per symptoms) though trop so far negative. Main focus will be further rate control with planned transfer for cardioversion. Seems to be adequately diuresing at present and oxygenating well. 1. CHF: continue diuresis 2. AF: add Lopressor 25 now, continue usual long acting beta piotr, hold Dofetilide per [facility], continue DOAC as is 3. CP: possible demand ischemia. Complete trop series. 4. DM: CPM History of Present Illness History of Present Illness Chief Complaint: SOB Narrative: 75 female with h/o PAF, one week s/p TAVR. here with sudden onset palpitations and SOB, with variable chest discomfort. In ER findings of note for AF/RVR and BNP >1500. CXR read as cardiomegaly w/o CHF though to my read I would call mild pulmonary edema. EKG non-ischemic, trop neg x 2. Patient given 20 Lasix IV -- 1300 recorded out -- 20 Cardizem IV and 120 PO. Case reviewed with [facility], accepted for tomorrow for planned cardioversion. Is admitted here pending transfer. Patient states she feels somehwat improved, palpitations less noticeable, less SOB and minimal chest discomfort. Note patient on Dofetilide, [facility] has requested we hold in anticipation of procedure in AM. Review of Systems All systems reviewed & are unremarkable except as noted in HPI and below [facility] Medical History Congestive heart failure (CHF) (06/25/14) diastolic dysfunction (10/18 echo LVH with EF 65%) ECHO 2016 - Dr Valentine Diverticulosis Essential hypertension (08/13/13) Former smoker (08/16/14) 5 pack yr history Gout intermittent, diet based. Hyperlipidemia Peptic ulcer disease with hemorrhage hx x 3 Restless legs (01/18/13) sleep study low iron (not anemic) Severe aortic valve stenosis Status post aortic valve replacement [facility] April 2021. SVT (supraventricular tachycardia) a. generally converts with Amiodarone Surgical History History of esophagogastroduodenoscopy (EGD) (~05/2018) 07/10/18 History of open sigmoidectomy S/P aortic valve replacement (~04/22/21) Complicated by extravasation of contrast on iliofemoral angiography. 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 S/P colonoscopy (~07/10/18) Status post abdominal hysterectomy Status post appendectomy Status post total bilateral knee replacement Family History Mother , 65 Thoracic aneurysm, ruptured Personal history of malignant neoplasm LYMPHOMA Father , 64 Heart disease Myocardial infarction Stroke Maternal Grandfather , 80 Heart disease Stroke Paternal Grandfather , 65 Heart disease Maternal Grandmother , 83 Heart disease Paternal Grandmother , 40 Cancer Son No problems noted. Son No problems noted. 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 Pets and animals: Yes Pets and animals: dog(s) Sexually active: Yes Do you think of yourself as: straight/heterosexual Current gender identity: female What is your relationship status?: How often do you talk on the phone with friends or family?: three or more times per week How often do you get together with friends or relatives?: three or more times per week How often do you attend religion or nondenominational services?: 4 or more times per year Do you belong to any clubs or organized social groups?: no Panel score (0-1 are the most socially isolated patients): 3 What type of physical activity do you participate in: walking Duration: < 15 minutes/day Frequency: 1-2 times per week Radha/Holiness: Sabianism Special radha needs: No Seatbelt use: always Drive 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 or ride 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 Do you feel safe at home: Yes Do you feel safe in your relationship?: Yes Meds Allergies and Home Medications Allergies Allergy/AdvReac Type Severity Reaction Status Date / Time aspirin Allergy Hives Verified 05/10/21 11:27 Penicillins Allergy Verified 05/10/21 11:27 tetracycline Allergy Verified 05/10/21 11:27 adhesive AdvReac Intermediate Topical Verified 05/10/21 11:27 Irritation Home Medications Medication Instructions Recorded Confirmed Type albuterol sulfate 90 mcg/actuation 2 puff IH QID PRN 04/17/18 05/10/21 History aerosol inhaler acetaminophen 325 mg tablet 325 - 650 mg PO Q4H PRN PRN #30 tab 05/24/18 05/10/21 Rx colchicine 0.6 mg tablet 0.6 mg PO DAILY PRN 12/17/18 05/10/21 History blood sugar diagnostic #400 each NS 07/29/20 04/29/21 Rx allopurinol 300 mg tablet 300 mg PO DAILY #90 tab 08/12/20 05/10/21 Rx apixaban 5 mg tablet 5 mg PO BID #60 tab 08/13/20 05/10/21 Rx furosemide 20 mg tablet 20 mg PO BID #180 tab 08/13/20 05/10/21 Rx simvastatin 10 mg tablet 10 mg PO QPM #90 tab 08/13/20 05/10/21 Rx levothyroxine 25 mcg tablet 25 - 37.5 mcg PO DAILY #90 tab 08/15/20 05/10/21 Rx dofetilide 500 mcg capsule 500 mcg PO Q12H #60 cap 11/20/20 05/10/21 Rx metformin 500 mg tablet 500 mg PO BID #180 tab 01/02/21 05/10/21 Rx famotidine 40 mg tablet 40 mg PO QHS #30 tab 03/04/21 05/10/21 Rx magnesium chloride 64 mg 64 mg PO BID #180 tab 04/07/21 05/10/21 Rx (magnesium chloride) tablet,delayed release clopidogrel 75 mg tablet 75 mg PO DAILY 04/29/21 05/10/21 History metoprolol succinate 100 mg 50 mg PO DAILY tab 04/29/21 05/10/21 History tablet,extended release 24 hr Exam Narrative Exam Narrative: 122/68, 108 (monitor approx 100-120 during visit), 36.7, 21, 96% RA. HEENT atraumatic; neck supple, unable to read JVP; lungs bibasilar rales; heart irr/irr, w/o murmur; abdomen soft and NT; extremities w/o edema; neuro ox3, lucid, moves all 4s Results Labs Result diagrams: 05/10/21 11:28 05/10/21 11:28 Labs: Laboratory Results - last 24 hr 05/10/21 05/10/21 05/10/21 11:28 11:28 11:28 WBC 10.56 RBC 3.70 L Hgb 9.0 L Hct 31.4 L MCV 84.9 MCH 24.3 L MCHC 28.7 L RDW 18.8 H Plt Count 562 H MPV 8.8 Immature Gran % 0.7 Neutrophils % 63.9 Lymphocytes % 22.5 Monocytes % 9.5 Eosinophils % 2.9 Basophils % 0.5 Nucleated RBC % 0 Absolute Neutrophils 6.75 H Absolute Lymphocytes 2.38 Absolute Monocytes 1.00 H Absolute Eosinophils 0.31 Absolute Basophils 0.05 Sodium 141 Potassium 4.3 Chloride 102 Carbon Dioxide 29.4 Anion Gap 9.6 BUN 33 H Creatinine 1.8 H Estimated GFR/1.73 m2 27.50 Glucose 102 Calcium 9.7 Magnesium 2.3 Total Bilirubin 0.3 AST 28 ALT 22 Alkaline Phosphatase 74 Troponin I < 0.05 NT-Pro-B Natriuret Pep 1585 H Total Protein 9.3 H Albumin 3.5 TSH 4.97 H COVID-19 Source SARS-CoV-2 (PCR) 05/10/21 05/10/21 05/10/21 11:32 11:36 14:38 WBC RBC Hgb Hct MCV MCH MCHC RDW Plt Count MPV Immature Gran % Neutrophils % Lymphocytes % Monocytes % Eosinophils % Basophils % Nucleated RBC % Absolute Neutrophils Absolute Lymphocytes Absolute Monocytes Absolute Eosinophils Absolute Basophils Sodium Potassium Chloride Carbon Dioxide Anion Gap BUN Creatinine Estimated GFR/1.73 m2 Glucose Calcium Magnesium Total Bilirubin AST ALT Alkaline Phosphatase Troponin I 0.05 NT-Pro-B Natriuret Pep Cancelled Total Protein Albumin TSH COVID-19 Source Nasal/Nares SARS-CoV-2 (PCR) Negative Last Vital Signs Temp 36.7 C 05/10/21 11:21 Pulse 97 H 05/10/21 18:15 Resp 21 05/10/21 18:20 BP 122/68 05/10/21 18:15 Pulse Ox 96 05/10/21 17:50
[2021-05-10] MEDS: Metoprolol 25 MG TAB PO (19:07)
[2021-05-10] MEDS: Simvastatin 10 MG TAB PO (20:53)
[2021-05-10] MEDS: Magnesium Chloride 64 MG TABCR PO (20:53)
[2021-05-10] MEDS: Furosemide 20 MG TAB PO (20:53)
[2021-05-10 21:38] LABS: Troponin I 0.09 ng/mL (<0.06)
[2021-05-10] MEDS: Apixaban 5 MG TAB PO (22:13)
[2021-05-10] MEDS: Famotidine 20 MG TAB 40 MG PO (22:13)
[2021-05-11] VITALS (27 sets, daily range): BP systolic 55–124; BP diastolic 36–88; PULSE 85–142; RESP 17–27; TEMP 36.5–36.6; O2SAT 91–96
[2021-05-11 07:10] LABS: Troponin I < 0.05 ng/mL (<0.06)
[2021-05-11] MEDS: Clopidogrel 75 MG TAB PO (08:28)
[2021-05-11] MEDS: Levothyroxine 25 MCG TAB PO (08:28)
[2021-05-11] MEDS: Magnesium Chloride 64 MG TABCR PO (08:29)
[2021-05-11] MEDS: Furosemide 20 MG TAB PO ×2 (08:29→17:08)
[2021-05-11] MEDS: Allopurinol 300 MG TAB PO (08:29)
[2021-05-11] MEDS: Metoprolol CR 100 MG TABCR 50 MG PO (08:29)
[2021-05-11] MEDS: Apixaban 5 MG TAB PO (08:29)
--- NOTE | 2021-05-11 08:34 | W.PM.PROGNOT ---
Subjective Subjective Interval history since last seen: Afib low 100s - 110s, very symptomatic of Afib even in the lower range of HR. BPs - 107/67. About to get her am metoprolol. Objective Last Vital Signs Temp 36.6 C 05/11/21 04:00 Pulse 142 H 05/11/21 06:01 Resp 25 H 05/11/21 07:00 BP 118/69 05/11/21 06:01 Pulse Ox 92 05/11/21 04:00 Laboratory Results - last 24 hr 05/10/21 05/10/21 05/10/21 11:28 11:28 11:28 WBC 10.56 RBC 3.70 L Hgb 9.0 L Hct 31.4 L MCV 84.9 MCH 24.3 L MCHC 28.7 L RDW 18.8 H Plt Count 562 H MPV 8.8 Immature Gran % 0.7 Neutrophils % 63.9 Lymphocytes % 22.5 Monocytes % 9.5 Eosinophils % 2.9 Basophils % 0.5 Nucleated RBC % 0 Absolute Neutrophils 6.75 H Absolute Lymphocytes 2.38 Absolute Monocytes 1.00 H Absolute Eosinophils 0.31 Absolute Basophils 0.05 Sodium 141 Potassium 4.3 Chloride 102 Carbon Dioxide 29.4 Anion Gap 9.6 BUN 33 H Creatinine 1.8 H Estimated GFR/1.73 m2 27.50 Glucose 102 Calcium 9.7 Magnesium 2.3 Total Bilirubin 0.3 AST 28 ALT 22 Alkaline Phosphatase 74 Troponin I < 0.05 NT-Pro-B Natriuret Pep 1585 H Total Protein 9.3 H Albumin 3.5 TSH 4.97 H COVID-19 Source SARS-CoV-2 (PCR) 05/10/21 05/10/21 05/10/21 11:32 11:36 14:38 WBC RBC Hgb Hct MCV MCH MCHC RDW Plt Count MPV Immature Gran % Neutrophils % Lymphocytes % Monocytes % Eosinophils % Basophils % Nucleated RBC % Absolute Neutrophils Absolute Lymphocytes Absolute Monocytes Absolute Eosinophils Absolute Basophils Sodium Potassium Chloride Carbon Dioxide Anion Gap BUN Creatinine Estimated GFR/1.73 m2 Glucose Calcium Magnesium Total Bilirubin AST ALT Alkaline Phosphatase Troponin I 0.05 NT-Pro-B Natriuret Pep Cancelled Total Protein Albumin TSH COVID-19 Source Nasal/Nares SARS-CoV-2 (PCR) Negative 05/10/21 05/11/21 21:12 06:08 WBC RBC Hgb Hct MCV MCH MCHC RDW Plt Count MPV Immature Gran % Neutrophils % Lymphocytes % Monocytes % Eosinophils % Basophils % Nucleated RBC % Absolute Neutrophils Absolute Lymphocytes Absolute Monocytes Absolute Eosinophils Absolute Basophils Sodium Potassium Chloride Carbon Dioxide Anion Gap BUN Creatinine Estimated GFR/1.73 m2 Glucose Calcium Magnesium Total Bilirubin AST ALT Alkaline Phosphatase Troponin I 0.09 H* < 0.05 NT-Pro-B Natriuret Pep Total Protein Albumin TSH COVID-19 Source SARS-CoV-2 (PCR)
--- NOTE | 2021-05-11 08:41 | INITIAL_ITS ---
- If Service Date Differs Date of service: 05/11/21 Time of Service: 08:41 Care Management Initial Assess REASON FOR HOSPITALIZATION:: AF, CHF PAST MEDICAL HISTORY/PAST SURGICAL HISTORY:: Medical History . Congestive heart failure (CHF) (06/25/14). diastolic dysfunction (10/18 echo LVH with EF 65%). ECHO 2016 - Dr Valentine. Diverticulosis. Essential hypertension (08/13/13). Former smoker (08/16/14). 5 pack yr history. Gout. intermittent, diet based. Hyperlipidemia. Peptic ulcer disease with hemorrhage. hx x 3. Restless legs (01/18/13). sleep study. low iron (not anemic). Severe aortic valve stenosis. Status post aortic valve replacement [facility] April 2021. SVT (supraventricular tachycardia). a. generally converts with Amiodarone. Surgical History . History of esophagogastroduodenoscopy (EGD) (~05/2018). 07/10/18. History of open sigmoidectomy. S/P aortic valve replacement (~04/22/21). Complicated by extravasation of contrast on iliofemoral angiography. 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 S/P colonoscopy (~07/10/18). Status post abdominal hysterectomy. Status post appendectomy. Status post total bilateral knee replacement PREVIOUS FUNCTIONAL STATUS/SOCIAL/FAMILY SUPPORTS:: Maliha lives in [facility] with her Marcell. She is independent at baseline, drives and does not have any community services or use any assistive devices at this time. CURRENT FUNCTIONAL STATUS:: Mailha was sitting up in her bed wearing 2L NC when CM met with her. She became tachy in the 130's and set off her cardiac alarm each time she adjusted herself in bed or stood up at her bed side. Maliha is currently waiting for a bed at [facility] for symptomatic rapid Afib which requires cardioversion. ADVANCE DIRECTIVES:: On File, MITZY Iqbal Has patient been provided with info about the portal/API?: Yes Did the patient sign up for the portal?: No CODE STATUS:: Full Code INSURANCE COVERAGE / FINANCIAL ISSUES:: [facility]. Commercial Medicare Replacement PRIMARY CARE PHYSICIAN:: Kimberly Nicole PATIENT/FAMILY EDUCATION NEEDS:: Review of transfer information, ask me three. ANTICIPATED BARRIERS TO DISCHARGE:: None identified at this time. TRANSPORTATION:: Via EMS arranged by nursing hotel or motel cleaning supervisor PLAN:: Transfer to [facility] for cardioversion via EMS transfer arranged by nursing hotel or motel cleaning supervisor.
--- NOTE | 2021-05-11 12:39 | W.PULMCC ---
General Date of Service Date of service: 05/11/21 Time of Service: 07:50 Reason for Admission to ICU: A. fib with RVR and heart failure Assessment and Plan Assessment and plan (1) CHF (congestive heart failure): Status: Chronic Qualifiers: Heart failure type: right-sided Heart failure chronicity: acute on chronic Qualified Code(s): I50.813 - Acute on chronic right heart failure (2) Anemia: Status: Chronic Qualifiers: Anemia type: unspecified type Qualified Code(s): D64.9 - Anemia, unspecified (3) Essential hypertension: Status: Acute (4) Obstructive sleep apnea syndrome: Status: Acute (5) Atrial fibrillation: Status: Acute Qualifiers: Atrial fibrillation type: longstanding persistent Qualified Code(s): I48.11 - Longstanding persistent atrial fibrillation (6) Asthma: Status: Acute Qualifiers: Asthma severity: mild Asthma persistence: intermittent Asthma complication type: uncomplicated Qualified Code(s): J45.20 - Mild intermittent asthma, uncomplicated (7) Obesity, morbid: Status: Chronic (8) Pulmonary hypertension: Status: Acute (9) CKD (chronic kidney disease): Status: Chronic Assessment and plan: This is a 75-year-old female with recent TAVR, right-sided heart failure, pulmonary hypertension, and A. fib who was admitted to the ICU for heart failure exacerbation and atrial with RVR. She did not require an IV infusion to control her rate and was continued on p.o. metoprolol which has improved her heart rate. She also clinically was volume overloaded and diuresed significantly overnight which resulted in an improvement in her shortness of breath. Based on her echo she has normal systolic left-sided function however her RV is dilated and has reduced function so this is likely a right-sided heart failure exacerbation. [facility] [place] been consulted on this case and there is plan to transfer her for cardioversion. Qualifiers: Chronic kidney disease stage: unspecified stage Qualified Code(s): N18.9 - Chronic kidney disease, unspecified Recommendations Pulmonary: Hypoxic respiratory failure - due to volume overload - O2 as needed for O2 sats >92% Asthma - recommend continuing as needed albuterol (regular HFA use of albuterol is unlikely to exacerbate A. Fib with RVR) Pulmonary Hypertension - diuresis as below Cardiac: RV heart failure - continue diuresis - continue home metoprolol s/p TAVR - [facility] [place] involved - continue Plavix A.fib with RVR - continue home metoprolol - can consider IV dilt push if heart rate becomes persistently elevated (>120) Renal: Acute on Chronic kidney disease - likely congestive - continue diuresis - recommend daily lytes while diuresing I&O: Intake & Output 05/08/21 05/09/21 05/10/21 05/11/21 23:59 23:59 23:59 23:59 Intake Total 130 / 130 30 / 30 Output Total 1725 / 1725 1375 / 1375 Balance -1595 / -1595 -1345 / -1345 Weight 109 kg Daily Fluid Goal:: negative 1-2L in 24 hours GI Nutrition: NPO for possible transfer for cardioversion Date of Last Bowel Movement: 05/10/21 Infectious Disease: No acute concerns Hematologic: Anemia on Eliquis - continue to monitor, no acute concerns Neurologic: No acute concerns Endocrine: Diabetes - monitor glucose - recommend SSI for glucose management - hold metformin Hypothyroidism - continue synthroid Lines: PIV Floey Prophylaxis: on Eliquis and Famotidine (home meds) Code Status: Resuscitation Status Full Code Subjective Critical and life-threatening events over the past 24 hours: This is a 75-year-old female who has a significant cardiac history including aortic stenosis as well as mitral valvular disease. She underwent [place] this month [place] [facility] She had an echocardiogram completed during her hospitalization for TAVR that showed a normal EF 70%. Her RV is mildly dilated with low normal global RV function and an estimated PAP of 46 mmHg. At her last PCP appointment on 04/29/2021 she noted that her breathing had been improved proving after her procedure. She has cardiac sensation with respect to her A. fib and stated she presented to the emergency department when she felt as though she was in rapid A. fib. She was found to be in A. fib with RVR and was clinically volume overloaded and so was given diuresis and placed in the ICU for more closer monitoring. [facility] [place] was consulted who recommended holding dofetilide in anticipation of a possible procedure. Chest x-ray is significant for fluffy alveolar infiltrates consistent with pulmonary edema. EKG was consistent with rapid A. fib and probably a prolonged QTC. She diuresed significantly overnight and is -3 L this morning. She is getting scheduled Lasix 20 mg BID. Today she states she is feeling slightly better than last night. She does have some difficulty breathing however feels as though this is improving. She still has cardiac sensation with palpitations. She denies chest pain or changes to her urinary or bowel habits. Exam Const General: no acute distress Nutritional Appearance: obese HENMT Head: normocephalic Ears: external ears normal and no periauricular adenopathy General nose exam: nasal mucous membranes and turbinates normal Face and sinus: sinuses nontender Mouth: oropharynx normal and moist mucous membranes Teeth and gingiva: dentition normal Eyes General: appearance normal, both eyes and all related structures Pupils: PERRL Neck Neck: normal visual inspection and no lymphadenopathy Chest Chest: normal inspection of the chest Resp Effort & Inspection: normal respiratory effort Auscultation: clear to auscultation bilaterally, rales (bibasilar, faint), no rhonchi and no wheezes Cardio Rate: regular rate Rhythm: abnormal rhythm irregularly irregular Heart Sounds: S1 normal, S2 normal and no murmurs Pulses: radial pulses present bilaterally GI Inspection: normal to inspection Palpation: soft Skin General skin exam: no rashes or lesions noted Neuro General: patient alert, patient awake and patient oriented x3 Extrem General: no clubbing, no cyanosis and edema Laterality: bilateral Psych Mental Status: mental status grossly normal Affect: normal affect Attitude: cooperative Most Recent VS/Results Last Vital Signs Temp 36.6 C 05/11/21 08:57 Pulse 88 05/11/21 08:57 Resp 25 H 05/11/21 08:57 BP 118/69 05/11/21 06:01 Pulse Ox 92 05/11/21 08:57 Laboratory Results - last 24 hr 05/10/21 05/10/21 05/10/21 11:32 11:36 14:38 Troponin I 0.05 NT-Pro-B Natriuret Pep Cancelled SARS-CoV-2 (PCR) Negative 05/10/21 05/11/21 21:12 06:08 Troponin I 0.09 H* < 0.05 NT-Pro-B Natriuret Pep SARS-CoV-2 (PCR) Review of Systems All systems reviewed & are unremarkable except as noted in HPI and below Time spent with patient Time spent in Critical Care: 35 Time spent in Critical care included: Coordination of care, Chart review, Documenting critically ill care, Time at immediate bedside and Discussing critically ill care with other medical staff
--- NOTE | 2021-05-11 12:40 | W.PM.DS.N ---
Date of service: 05/11/21 Time of Service: 12:40 DS: Diagnosis Discharge Diagnosis (1) CHF (congestive heart failure): Status: Chronic Discharge Plan Disposition Patient Disposition: [facility] Condition: Serious Discharge Details Reason For Visit: AF, CHF Admit Date/Time: 05/10/21 18:52 Admit Provider: Donny Malone Attending Provider: Donny Malone Primary Care Provider: Kimberly Nicole Hospital Course Hospital Course: Ms Iqbal is a 75 year old female who is s/p TAVR for severe aortic stenosis on 04/22/21 and has a h/o paroxysmal Afib on eliquis, diastolic CHF, pulmonary hypertension, NIDDM2, LAI, who was a patient in [facility] ICU under the hospitalist service form 05/10/21 until 05/11/21 while awaiting a bed on [facility] service for symptomatic rapid Afib which requires cardioversion at [facility]. The patient was treated for rate-dependent CHF while at our facility. Her anticoagluation was continued, dofetilide held per cardiology recommendations, and her Afib was treated with boluses of cardizem and continuation of her beta piotr. Her troponins have been <0.05, 0.05, 0.09, and <0.05 chronologically (Troponin I). The patient is normotensive and stable for transfer. She is NPO in anticipation of procedure. Care for patient as well as completion of her discharge summary on day of discharge took 45 minutes. Please, look for MAR for list of inpatient medications as the list below reflects outpatient prescriptions. Home Meds and New Rx's Prescriptions: No Action albuterol sulfate 90 mcg/actuation HFA aerosol inhaler 2 puff IH QID PRNRF: 0 clopidogrel [Plavix] 75 mg tablet 75 mg PO DAILY RF: 0 metoprolol succinate 100 mg tablet extended release 24 hr 50 mg PO DAILY RF: 0 colchicine 0.6 mg tablet 0.6 mg PO DAILY PRNRF: 0 famotidine [Pepcid] 40 mg tablet 40 mg PO QHS Qty: 30 RF: 1 acetaminophen [Tylenol] 325 mg tablet 325 - 650 mg PO Q4H PRN PRN (Reason: pain) Qty: 30 RF: 0 (DME) blood sugar diagnostic Strip See Dose Instructions .ROUTE .MEDSUPPLY Qty: 400 RF: 3 allopurinol 300 mg tablet 300 mg PO DAILY Qty: 90 RF: 3 Eliquis 5 mg tablet 5 mg PO BID Qty: 60 RF: 11 simvastatin 10 mg tablet 10 mg PO QPM Qty: 90 RF: 3 furosemide [Lasix] 20 mg tablet 20 mg PO BID Qty: 180 RF: 3 levothyroxine 25 mcg tablet 25 - 37.5 mcg PO DAILY Qty: 90 RF: 6 dofetilide 500 mcg capsule 500 mcg PO Q12H Qty: 60 RF: 11 metformin 500 mg tablet 500 mg PO BID Qty: 180 RF: 3 magnesium chloride 64 mg tablet,delayed release (DR/EC) 64 mg PO BID Qty: 180 RF: 3 Discharge Instructions Referrals: Matilde Becerra MD [[facility] STAFF PHYSICIAN] - Kimberly Nicole MD [Primary Care Provider] - Activity:: OOB to chair Equipment/Supplies:: No Equipment Needed Diet:: NPO Discharge Orders Discharge Orders: Discharge Order (Routine); Ordered 05/11/21 Ordered By: Lori Yuan DS: Summary Time Spent with Patient providing and/or coordinating discharge services: Greater than 30 minutes Status at Discharge Functional status at discharge: independent ambulation Overall status at discharge: patient is not back to baseline Mental Status: mental status grossly normal Speech and Movement: speech and movement normal Mood: congruent mood Affect: normal affect Exam Narrative Exam Narrative: General: Obese female who appears very mildly dyspneic on 2L of O2 in bed, A&Ox3 HEENT: EOMI, MMM Heart: irregularly irregular rhythm Lungs: Crackles at B bases Abdomen: soft, nontender, nondistended Extremities: trace edema BLE's Psych Mental Status: mental status grossly normal Speech and Movement: speech and movement normal Mood: congruent mood Affect: normal affect DS: Data Vitals/I&O Vitals and I&O: Vital Signs Temperature 36.6 C 05/11/21 08:57 Temperature Source Temporal Artery Scan 05/11/21 08:57 Pulse 88 05/11/21 08:57 Pulse 107 H 05/11/21 07:00 Respiratory Rate 25 H 05/11/21 08:57 Respiratory Effort Non-Labored 05/11/21 08:57 Respiratory Depth Normal 05/11/21 08:57 Respiratory Pattern Normal 05/11/21 08:57 Blood Pressure 118/69 05/11/21 06:01 Blood Pressure Mean 82 05/11/21 06:01 Blood Pressure Position Supine 05/11/21 08:57 Pulse Oximetry 92 05/11/21 08:57 Oxygen Delivery Method Nasal Cannula 05/11/21 08:57 Oxygen Flow Rate 2 05/11/21 08:57 Pain Level 1 05/11/21 08:57 Intake & Output 05/10/21 05/11/21 05/11/21 23:59 11:59 23:59 Intake Total 120 / 130 30 / 30 Output Total 1725 / 1725 1375 / 1375 Balance -1605 / -1595 -1345 / -1345 Weight 109 kg Intake: Oral 120 / 120 30 / 30 Output: Urine 1725 / 1725 1375 / 1375 Other: Urine Color Pale Yellow Yellow Urine Appearance Clear Clear Comment nation in place. nation in place. Data Completed and Pending Completed studies during hospitalization [Text1]: CXR: Cardiomegaly. No findings to suggest CHF or pneumonia. Labs on day of discharge: Labs from last 24 hours 05/11/21 05/10/21 05/10/21 06:08 21:12 14:38 Troponin I < 0.05 0.09 H* 0.05 NT-Pro-B Natriuret Pep SARS-CoV-2 (PCR) 05/10/21 05/10/21 11:36 11:32 Troponin I NT-Pro-B Natriuret Pep Cancelled SARS-CoV-2 (PCR) Negative [facility] Medical History Congestive heart failure (CHF) (06/25/14) diastolic dysfunction (10/18 echo LVH with EF 65%) ECHO 2016 - Dr Valentine Diverticulosis Essential hypertension (08/13/13) Former smoker (08/16/14) 5 pack yr history Gout intermittent, diet based. Hyperlipidemia Peptic ulcer disease with hemorrhage hx x 3 Restless legs (01/18/13) sleep study low iron (not anemic) Severe aortic valve stenosis Status post aortic valve replacement [facility] April 2021. SVT (supraventricular tachycardia) a. generally converts with Amiodarone Surgical History History of esophagogastroduodenoscopy (EGD) (~05/2018) 07/10/18 History of open sigmoidectomy S/P aortic valve replacement (~04/22/21) Complicated by extravasation of contrast on iliofemoral angiography. 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 S/P colonoscopy (~07/10/18) Status post abdominal hysterectomy Status post appendectomy Status post total bilateral knee replacement Family History Mother , 65 Thoracic aneurysm, ruptured Personal history of malignant neoplasm LYMPHOMA Father , 64 Heart disease Myocardial infarction Stroke Maternal Grandfather , 80 Heart disease Stroke Paternal Grandfather , 65 Heart disease Maternal Grandmother , 83 Heart disease Paternal Grandmother , 40 Cancer Son No problems noted. Son No problems noted. 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 Pets and animals: Yes Pets and animals: dog(s) Sexually active: Yes Do you think of yourself as: straight/heterosexual Current gender identity: female What is your relationship status?: How often do you talk on the phone with friends or family?: three or more times per week How often do you get together with friends or relatives?: three or more times per week How often do you attend adventist or anabaptist services?: 4 or more times per year Do you belong to any clubs or organized social groups?: no Panel score (0-1 are the most socially isolated patients): 3 What type of physical activity do you participate in: walking Duration: < 15 minutes/day Frequency: 1-2 times per week Radha/Confucianist: Quaker Special radha needs: No Seatbelt use: always Drive intox or ride w/intox laborer driver: No Do you feel safe at home: Yes Do you feel safe in your relationship?: Yes
[2021-05-11 14:11] LABS: Anion Gap 8.9 mmol/L (3-11); BUN 26 mg/dL (7-18); CO2 28.1 mmol/L (21.0-32.0); CREATININE 1.2 mg/dL (0.55-1.02); Calcium 9.6 mg/dL (8.5-10.1); Chloride 103 mmol/L (98-107); Estimated GFR 43.91 (mL/min/1.73m2); Glucose 107 mg/dL (74-106); Magnesium 2.1 mg/dL (1.8-2.4); Potassium 4.8 mmol/L (3.5-5.1); Sodium 140 mmol/L (136-145)
== END 2021-05-11 19:45 | disposition short-term general hospital (02) | DRG 291 ==
LOC: ER 19:00 → ICU 05-11 11:11
PROVIDERS: Internal Medicine; Physician Assistant; Admitting Provider General Practice; Emergency Provider Nurse Practitioner Acute Care; PCP Family Medicine; Visit Provider General Practice
DX: I13.0 Hypertensive heart and chronic kidney disease with heart failure and stage 1 through stage 4 chronic kidney disease, or unspecified chronic kidney disease (principal); I50.33 Acute on chronic diastolic (congestive) heart failure; I24.8 Other forms of acute ischemic heart disease; I47.1 Supraventricular tachycardia; I48.11 Longstanding persistent atrial fibrillation; Z68.42 Body mass index [BMI] 45.0-49.9, adult; I50.813 Acute on chronic right heart failure; E11.9 Type 2 diabetes mellitus without complications; Z95.2 Presence of prosthetic heart valve; K57.90 Diverticulosis of intestine, part unspecified, without perforation or abscess without bleeding; Z87.891 Personal history of nicotine dependence; M10.9 Gout, unspecified; E78.5 Hyperlipidemia, unspecified; G25.81 Restless legs syndrome; Z87.11 Personal history of peptic ulcer disease; Z20.822 Contact with and (suspected) exposure to COVID-19; D64.9 Anemia, unspecified; J45.20 Mild intermittent asthma, uncomplicated; E66.01 Morbid (severe) obesity due to excess calories; I27.20 Pulmonary hypertension, unspecified; I34.0 Nonrheumatic mitral (valve) insufficiency; Z79.01 Long term (current) use of anticoagulants
CPT/HCPCS: 36415; 51702; 80048; 80053; 87635; 93005; 96374; 96375; 99291; 99292; 71045; 83735; 83880; 84443; 84484; 85025; 93010; 99217; 99219; J1941

== ENCOUNTER 2021-05-22 12:20 | Outpatient (CLI) | payer MEDICARE, SELFPAY ==
[2021-05-22 12:37] LABS: Abs Immature Grans 0.05 10^3/uL (0.0-0.06); Absolute Basophil Count 0.02 10^3/uL (0.0-0.2); Absolute Eosinophil Count 0.36 10^3/uL (0.0-0.7); Absolute Lymphocyte Count 2.08 10^3/uL (1.2-3.4); Absolute Monocyte Count 0.76 10^3/uL (0.1-0.8); Absolute Neutrophil Count 5.38 10^3/uL (1.2-6.7); Basophils % 0.2; Eosinophils % 4.2; HCT 32.2 % (36.0-46.0); Immature Grans % 0.6; MCH 24.7 pg (27.0-33.0); MCV 88.5 fL (80-95); MPV 8.2 fL (8.0-11.0); Monocytes % 8.8; Neutrophils % 62.2; Nucleated RBC 0 %; Platelet Count 368 10^3/uL (130-400); RBC 3.64 10^6/uL (3.93-5.22); RDW-SD 67.8 fL; WBC 8.65 10^3/uL (4.4-10.8)
[2021-05-22 12:38] LABS: Anion Gap 10.4 mmol/L (3-11); BUN 36 mg/dL (7-18); CO2 25.6 mmol/L (21.0-32.0); CREATININE 1.5 mg/dL (0.55-1.02); Calcium 9.3 mg/dL (8.5-10.1); Chloride 104 mmol/L (98-107); Estimated GFR 33.94 (mL/min/1.73m2); Glucose 86 mg/dL (74-106); Potassium 4.1 mmol/L (3.5-5.1); Sodium 140 mmol/L (136-145)
[2021-05-22 12:52] LABS: Anisocytosis 2+; Diff Comment RBC Morph Reviewed; Hypochromasia 1+
== END 2021-05-22 12:21 | disposition home or self-care (01) ==
LOC: LBO 12:20
PROVIDERS: PCP Family Medicine; Visit Provider Family Medicine
DX: I48.11 Longstanding persistent atrial fibrillation (principal); I10 Essential (primary) hypertension; D64.9 Anemia, unspecified; I50.9 Heart failure, unspecified
CPT/HCPCS: 36415; 80048; 85025

== ENCOUNTER 2021-06-23 09:21 | Outpatient (CLI) | payer MEDICARE, SELFPAY ==
[2021-06-23 12:37] LABS: Abs Immature Grans 0.03 10^3/uL (0.0-0.06); Absolute Basophil Count 0.05 10^3/uL (0.0-0.2); Absolute Eosinophil Count 0.42 10^3/uL (0.0-0.7); Absolute Lymphocyte Count 1.66 10^3/uL (1.2-3.4); Absolute Monocyte Count 1.05 10^3/uL (0.1-0.8); Absolute Neutrophil Count 5.13 10^3/uL (1.2-6.7); Basophils % 0.6; HCT 33.9 % (36.0-46.0); HGB 9.6 g/dL (11.2-15.7); Immature Grans % 0.4; Lymphocytes % 19.9; MCH 25.7 pg (27.0-33.0); MCHC 28.3 % (32.0-36.0); MCV 90.6 fL (80-95); MPV 9.2 fL (8.0-11.0); Monocytes % 12.6; Neutrophils % 61.5; Nucleated RBC 0 %; Platelet Count 399 10^3/uL (130-400); RBC 3.74 10^6/uL (3.93-5.22); RDW 23.1 % (11.7-14.6); RDW-SD 76.1 fL; WBC 8.34 10^3/uL (4.4-10.8)
[2021-06-23 13:28] LABS: Anisocytosis 2+; Basophilic Stippling Present; Diff Comment Diff Reviewed; Hypochromasia 1+; Polychromasia Present
== END 2021-06-23 09:22 | disposition home or self-care (01) ==
LOC: LOS 09:21
PROVIDERS: PCP Family Medicine; Visit Provider Family Medicine
DX: D64.9 Anemia, unspecified (principal)
CPT/HCPCS: 36415; 85025

== ENCOUNTER 2021-07-08 13:25 | Outpatient (CLI) | payer MEDICARE, SELFPAY ==
--- NOTE | 2021-07-08 13:15 | RT.EKG_ITS ---
APPROVED REPORT Exam: Resting ECG Reason for Exam: afib Patient Location: O HR:63 bpm ECG Measurements Heart Rate 63 AXIS DE 170 P -62 QRSd 117 QRS -4 QT 470 T 11 QTc 482 Conclusion Sinus or ectopic atrial rhythm...P axis (-45,135) Atrial premature complex...SV complex w/ short R-R interval Nonspecific intraventricular conduction delay...QRSd >115mS, not LBBB/RBBB Nonspecific repol abnormality, lateral leads...ST dep, T neg, I aVL V5 V6
== END 2021-07-08 13:26 | disposition home or self-care (01) ==
LOC: DI.CARD 13:27
PROVIDERS: PCP Family Medicine; Visit Provider Internal Medicine Cardiovascular Disease
DX: I35.0 Nonrheumatic aortic (valve) stenosis (principal); I48.11 Longstanding persistent atrial fibrillation
CPT/HCPCS: 93010

== ENCOUNTER → 2021-07-08 13:56 | Outpatient (BNVA) | payer MEDICARE, SELFPAY | PROVIDERS: PCP Family Medicine; Referring Provider Family Medicine; Visit Provider Internal Medicine Cardiovascular Disease | DX: I48.11 Longstanding persistent atrial fibrillation (principal); I35.0 Nonrheumatic aortic (valve) stenosis; I50.813 Acute on chronic right heart failure; Z79.899 Other long term (current) drug therapy | CPT/HCPCS: 93005; 99214 ==

== ENCOUNTER 2021-07-13 03:15 | Outpatient (CLI) | payer MEDICARE, SELFPAY ==
[2021-07-13 11:06] LABS: ALT 20 U/L (14-59); AST 18 U/L (15-37); Albumin 3.7 g/dL (3.4-5.0); Alkaline Phosphatase 74 U/L (46-116); Anion Gap 12.1 mmol/L (3-11); BUN 37 mg/dL (7-18); Bilirubin, Total 0.3 mg/dL (0.2-1.0); CO2 26.9 mmol/L (21.0-32.0); CREATININE 1.5 mg/dL (0.55-1.02); Calcium 9.2 mg/dL (8.5-10.1); Chloride 102 mmol/L (98-107); Estimated GFR 33.94 (mL/min/1.73m2); Glucose 109 mg/dL (74-106); Potassium 4.4 mmol/L (3.5-5.1); Sodium 141 mmol/L (136-145); Total Protein 8.1 g/dL (6.4-8.2)
[2021-07-13 11:14] LABS: TSH (W/Ref FT4) 6.56 uIU/mL (0.36-3.74)
[2021-07-13 11:31] LABS: FREE T4 1.05 ng/dL (0.76-1.46)
== END 2021-07-13 03:16 | disposition home or self-care (01) ==
LOC: LBO 03:15
PROVIDERS: PCP Family Medicine; Visit Provider Internal Medicine Cardiovascular Disease
DX: I48.11 Longstanding persistent atrial fibrillation; N18.9 Chronic kidney disease, unspecified; I50.9 Heart failure, unspecified; Z79.899 Other long term (current) drug therapy
CPT/HCPCS: 36415; 80053; 84439; 84443

== ENCOUNTER → 2021-07-14 11:08 | Outpatient (BNVA) | payer MEDICARE, SELFPAY | PROVIDERS: PCP Family Medicine; Referring Provider Family Medicine; Visit Provider Internal Medicine Cardiovascular Disease | DX: I50.813 Acute on chronic right heart failure (principal); I11.0 Hypertensive heart disease with heart failure; Z95.3 Presence of xenogenic heart valve; I48.11 Longstanding persistent atrial fibrillation | CPT/HCPCS: 99214 ==

== ENCOUNTER → 2021-07-27 14:18 | Outpatient (BNVA) | payer MEDICARE, SELFPAY | PROVIDERS: PCP Family Medicine; Referring Provider Family Medicine; Visit Provider Internal Medicine Cardiovascular Disease | DX: I50.813 Acute on chronic right heart failure (principal); Z95.3 Presence of xenogenic heart valve; I11.0 Hypertensive heart disease with heart failure; I48.11 Longstanding persistent atrial fibrillation; Z79.899 Other long term (current) drug therapy | CPT/HCPCS: 99214; 99213 ==

== ENCOUNTER 2021-08-03 04:20 | Outpatient (CLI) | payer MEDICARE, SELFPAY ==
[2021-08-03 12:29] LABS: Anion Gap 10.3 mmol/L (3-11); BUN 75 mg/dL (7-18); CO2 30.7 mmol/L (21.0-32.0); CREATININE 1.9 mg/dL (0.55-1.02); Calcium 9.5 mg/dL (8.5-10.1); Chloride 96 mmol/L (98-107); Estimated GFR 25.84 (mL/min/1.73m2); Glucose 97 mg/dL (74-106); Potassium 3.4 mmol/L (3.5-5.1); Sodium 137 mmol/L (136-145)
== END 2021-08-03 04:21 | disposition home or self-care (01) ==
LOC: LBO 04:20
PROVIDERS: PCP Family Medicine; Visit Provider Internal Medicine Cardiovascular Disease
DX: I50.9 Heart failure, unspecified (principal); N18.9 Chronic kidney disease, unspecified
CPT/HCPCS: 36415; 80048

== ENCOUNTER 2021-08-07 08:08 | Emergency (ER) | payer MEDICARE, SELFPAY ==
[2021-08-07] VITALS (36 sets, daily range): BP systolic 102–157; BP diastolic 34–70; PULSE 56–67; RESP 10–21; TEMP 36.7; O2SAT 90–99
--- NOTE | 2021-08-07 08:15 | RT.EKG_ITS ---
APPROVED REPORT Exam: Resting ECG Reason for Exam: GI bleed Patient Location: E HR:59 bpm ECG Measurements Heart Rate 59 AXIS AK 188 P 86 QRSd 130 QRS -59 QT 493 T 42 QTc 490 Conclusion Sinus bradycardia...rate< 60 Left ventricular hypertrophy...multiple LVH criteria lateral ST depression as seen on prior. no STEMI. non-diagnostic EKG I have reviewed and interpreted ECG and agree with software generated interpretation.
--- NOTE | 2021-08-07 08:32 | W.ED.GENAD ---
Discharge Plan Disposition Patient Disposition: HOME Condition: Stable Discharge Details Clinical Impression: GI bleed, Anemia, iron deficiency Primary Care Provider: Kimberly Nicole ED Provider: Latisha Lindsey Home Meds and New Rx's Prescriptions: Continued albuterol sulfate 90 mcg/actuation HFA aerosol inhaler 2 puff IH QID PRNRF: 0 clopidogrel [Plavix] 75 mg tablet 75 mg PO DAILY RF: 0 metoprolol succinate 100 mg tablet extended release 24 hr 50 mg PO DAILY RF: 0 amiodarone 400 mg tablet 200 mg PO DAILY RF: 0 furosemide [Lasix] 20 mg tablet 40 mg PO BID RF: 0 metolazone 5 mg tablet 5 mg PO ONCE Qty: 30 RF: 6 acetaminophen [Tylenol] 325 mg tablet 325 - 650 mg PO Q4H PRN PRN (Reason: pain) Qty: 30 RF: 0 allopurinol 300 mg tablet 300 mg PO DAILY Qty: 90 RF: 3 simvastatin 10 mg tablet 10 mg PO QPM Qty: 90 RF: 3 levothyroxine 25 mcg tablet 25 - 37.5 mcg PO DAILY Qty: 90 RF: 6 metformin 500 mg tablet 500 mg PO BID Qty: 180 RF: 3 colchicine 0.6 mg tablet 0.6 mg PO DAILY PRN (Reason: gout) Qty: 20 RF: 0 Eliquis 5 mg tablet 5 mg PO BID Qty: 60 RF: 11 spironolactone 25 mg tablet 12.5 mg PO DAILY Qty: 60 RF: 4 No Action (DME) blood sugar diagnostic Strip See Dose Instructions .ROUTE .MEDSUPPLY Qty: 400 RF: 3 magnesium chloride 64 mg tablet,delayed release (DR/EC) 64 mg PO BID Qty: 180 RF: 3 Discharge Instructions Instructions: Gastrointestinal Bleeding (ED), Anemia (ED) Additional Instructions: Consider holding the Eliquis for a couple of days to see if this improves the bleeding. Follow up with general surgery and/or PCP to discuss possible colonoscopy. Take the Ferrous Fumerate as previously suggested by your PCP. I did add on iron studies and your iron levels were low today. Your potassium was also slightly low you are given potassium supplement in the IV. Follow up with primary care provider in 3-5 days. Return to ED sooner if any worsening dizziness, bleeding, abdominal pain or concerns. Referrals: Kimberly Nicole MD [Primary Care Provider] - 3 days Medical Decision Making 75-year-old female presents to the ER with chief complaint of black tarry stools. She reports a total of 4 episodes in the last 24 hours. Associated symptoms include weakness, lightheadedness and dry heaving this morning. She reports noticing over the last couple days her hand is bruising and she is having a gout flareup to her right upper extremity. She denies any bleeding gums. She does take Plavix and Eliquis for TAVR aortic valve replacement. past medical history includes, hypertension, CHF, iron deficiency anemia, gout, hyperlipidemia, obstructive sleep apnea, atrial fibrillation., She denies any alcohol use. She is taking her medications as prescribed. CBC shows a stable H&H 11.0 and 37.9 she does appear to be normocytic anemia with MCV of 84.8, MCH 24 point, MCHC 29.0 RDW of 19.9% platelets are 468, PT is 12.5, INR 1.2, sodium is 135, potassium 3.0, chloride 93, BUN is 99 a critical high, creatinine 2.4 GFR is 19 glucose 137 magnesium 2.9. Initial troponin within normal limits. Iron, TIBC and ferritin added onto labs. Patient does have a past medical history of iron deficiency anemia. Her last clinic visit on in June she was instructed to take ferrous fumarate. Patient has not been taking the iron supplement. She states I just forgot. At this time H&H does not appear critical or warrant blood transfusion at this time. Repeat H&H shows a slight drop one-point to 10.2 and 35.1 discussed results with patient verbalized understanding. Plan is to discharge patient home with strict return instructions close follow-up with PCP to discuss possible colonoscopy. Patient states she was not a candidate for: Prior due to her aortic valve replacement. However that was done 2 months ago has been stable since. I did discuss holding on her Eliquis for at least 1 or 2 days to see if this resolves the dark tarry stools. Patient verbalized understanding. Rpt Trop WNL This text was generated using Zappliation system, please disregard any oddities of phrase or misspellings. Lab Data Lab results reviewed: Yes I reviewed the patient's lab results. Lab results narrative: Laboratory Tests Range/Units 08/07/21 08/07/21 08/07/21 08:30 08:30 08:30 WBC (4.4-10.8) 10^3/uL 10.43 RBC (3.93-5.22) 10^6/uL 4.47 Hgb (11.2-15.7) g/dL 11.0 L Hct (36.0-46.0) % 37.9 MCV (80-95) fL 84.8 MCH (27.0-33.0) pg 24.6 L MCHC (32.0-36.0) % 29.0 L RDW (11.7-14.6) % 19.9 H Plt Count (130-400) 10^3/uL 468 H MPV (8.0-11.0) fL 9.1 Immature Gran % 0.6 Neutrophils % 75.0 Lymphocytes % 12.4 Monocytes % 10.0 Eosinophils % 1.5 Basophils % 0.5 Nucleated RBC % % 0 Absolute Neutrophils (1.2-6.7) 10^3/uL 7.83 H Absolute Lymphocytes (1.2-3.4) 10^3/uL 1.29 Absolute Monocytes (0.1-0.8) 10^3/uL 1.04 H Absolute Eosinophils (0.0-0.7) 10^3/uL 0.16 Absolute Basophils (0.0-0.2) 10^3/uL 0.05 PT (9.3-11.0) sec 12.5 H INR (0.9-1.1) 1.2 H Sodium (136-145) mmol/L 135 L Potassium (3.5-5.1) mmol/L 3.0 L Chloride (98-107) mmol/L 93 L Carbon Dioxide (21.0-32.0) mmol/L 29.2 Anion Gap (3-11) mmol/L 12.8 H BUN (7-18) mg/dL 99 H* Creatinine (0.55-1.02) mg/dL 2.4 H Estimated GFR/1.73 m2 (mL/min/1.73m2) 19.73 Glucose (74-106) mg/dL 137 H Calcium (8.5-10.1) mg/dL 9.8 Magnesium (1.8-2.4) mg/dL 2.9 H Total Bilirubin (0.2-1.0) mg/dL 0.3 AST (15-37) U/L 30 ALT (14-59) U/L 27 Alkaline Phosphatase (46-116) U/L 79 Troponin I (<or=60) ng/L < 50 Total Protein (6.4-8.2) g/dL 9.9 H Albumin (3.4-5.0) g/dL 4.2 HPI General Mode of arrival: ambulatory. Date/Time Provider Initiated Documentation: 08/07/21 08:09. Limitations to Documentation: no limitations. Information obtained by: patient, RN notes reviewed and old records reviewed. HPI Narrative: 75-year-old female presents to the ER with chief complaint of black tarry stools. She reports a total of 4 episodes in the last 24 hours. Associated symptoms include weakness, lightheadedness and dry heaving this morning. She reports noticing over the last couple days her hand is bruising and she is having a gout flareup to her right upper extremity. She denies any bleeding gums. She does take Plavix and Eliquis for TAVR aortic valve replacement. past medical history includes, hypertension, CHF, iron deficiency anemia, gout, hyperlipidemia, obstructive sleep apnea, atrial fibrillation., She denies any alcohol use. She is taking her medications as prescribed. Related Data Home Medications Medication Instructions Recorded Confirmed albuterol sulfate 90 mcg/actuation 2 puff IH QID PRN 04/17/18 08/07/21 aerosol inhaler acetaminophen 325 mg tablet 325 - 650 mg PO Q4H PRN PRN #30 tab 05/24/18 08/07/21 blood sugar diagnostic #400 each NS 07/29/20 07/27/21 allopurinol 300 mg tablet 300 mg PO DAILY #90 tab 08/12/20 08/07/21 simvastatin 10 mg tablet 10 mg PO QPM #90 tab 08/13/20 08/07/21 levothyroxine 25 mcg tablet 25 - 37.5 mcg PO DAILY #90 tab 08/15/20 08/07/21 metformin 500 mg tablet 500 mg PO BID #180 tab 01/02/21 08/07/21 magnesium chloride 64 mg 64 mg PO BID #180 tab 04/07/21 08/07/21 (magnesium chloride) tablet,delayed release clopidogrel 75 mg tablet 75 mg PO DAILY 04/29/21 08/07/21 metoprolol succinate 100 mg 50 mg PO DAILY tab 04/29/21 08/07/21 tablet,extended release 24 hr colchicine 0.6 mg tablet 0.6 mg PO DAILY PRN #20 tab 05/15/21 08/07/21 amiodarone 400 mg tablet 200 mg PO DAILY tab 06/24/21 08/07/21 apixaban 5 mg tablet 5 mg PO BID #60 tab 07/15/21 08/07/21 furosemide 20 mg tablet 40 mg PO BID tab 07/27/21 08/07/21 metolazone 5 mg tablet 5 mg PO ONCE #30 tab 07/27/21 08/07/21 spironolactone 25 mg tablet 12.5 mg PO DAILY #60 tab 08/03/21 08/07/21 Previous Rx's Medication Instructions Recorded acetaminophen 325 mg tablet 325 - 650 mg PO Q4H PRN PRN #30 tab 05/24/18 blood sugar diagnostic #400 each NS 07/29/20 allopurinol 300 mg tablet 300 mg PO DAILY #90 tab 08/12/20 simvastatin 10 mg tablet 10 mg PO QPM #90 tab 08/13/20 levothyroxine 25 mcg tablet 25 - 37.5 mcg PO DAILY #90 tab 08/15/20 metformin 500 mg tablet 500 mg PO BID #180 tab 01/02/21 magnesium chloride 64 mg 64 mg PO BID #180 tab 04/07/21 (magnesium chloride) tablet,delayed release colchicine 0.6 mg tablet 0.6 mg PO DAILY PRN #20 tab 05/15/21 apixaban 5 mg tablet 5 mg PO BID #60 tab 07/15/21 metolazone 5 mg tablet 5 mg PO ONCE #30 tab 07/27/21 spironolactone 25 mg tablet 12.5 mg PO DAILY #60 tab 08/03/21 Allergies Allergy/AdvReac Type Severity Reaction Status Date / Time aspirin Allergy Hives Verified 08/07/21 08:22 Penicillins Allergy Verified 08/07/21 08:22 tetracycline Allergy Verified 08/07/21 08:22 adhesive AdvReac Intermediate Topical Verified 08/07/21 08:22 Irritation General Stated Complaint: Abd Prob BROOKE: 3 Review of Systems All systems reviewed & are unremarkable except as noted in HPI and below Cardiovascular Cardiovascular: Denies chest pain, Denies leg edema, Reports lightheadedness and Denies dyspnea Respiratory Respiratory: Denies cough and Denies dyspnea Gastrointestinal Gastrointestinal: Denies abdominal pain and Reports melena PFSH All Active Problems (Updated 08/07/21 @ 11:46 by Latisha Lindsey) Anemia, iron deficiency (Acute) Status post transcatheter aortic valve replacement (TAVR) using bioprosthesis (Acute) Pulmonary hypertension (Acute) CHF (congestive heart failure) (Chronic) Anemia (Chronic) GI bleed (Chronic) had melena transiently in 02/2021; unable to be evaluated due to AV stenosis. Hyperlipidemia (Acute) Essential hypertension (Acute 08/13/13) Osteoarthritis (Acute) Obstructive sleep apnea syndrome (Acute 09/26/12) DX SEP 2012 AT [facility]; wears CPAP machine. 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 Asthma (Acute) Osteoarthritis (Chronic) Gastroesophageal reflux disease (Chronic) Obesity, morbid (Chronic) a. BMI of 52 CKD (chronic kidney disease) (Chronic) Medical History Congestive heart failure (CHF) (06/25/14) diastolic dysfunction (10/18 echo LVH with EF 65%) ECHO 2015 - Dr Valentine Diverticulosis Former smoker (08/16/14) 5 pack yr history Peptic ulcer disease with hemorrhage hx x 3 Restless legs (01/18/13) sleep study low iron (not anemic) Severe aortic valve stenosis Status post aortic valve replacement [facility] April 2021. SVT (supraventricular tachycardia) a. generally converts with Amiodarone Surgical History History of esophagogastroduodenoscopy (EGD) (~05/2018) 07/10/18 History of open sigmoidectomy S/P aortic valve replacement (~04/22/21) Complicated by extravasation of contrast on iliofemoral angiography. 2 covered stents placed in the artery EIA extending into the R OPTICAL ADVISOR. S/P colonoscopy (~07/10/18) Status post abdominal hysterectomy Status post appendectomy Status post total bilateral knee replacement Family History Mother , 65 Thoracic aneurysm, ruptured Personal history of malignant neoplasm LYMPHOMA Father , 64 Heart disease Myocardial infarction Stroke Maternal Grandfather , 80 Heart disease Stroke Paternal Grandfather , 65 Heart disease Maternal Grandmother , 83 Heart disease Paternal Grandmother , 40 Cancer Son No problems noted. Son No problems noted. Social History Smoking/Tobacco Use Status: Former Tobacco Use Quit Date: 08/08/72 Tobacco: How many years used: 4 Smoking risk assessment performed?: Yes Alcohol Intake: never Drug use: Never Substance use type: does not use Caregiver/Support person: No Household members: spouse Housing: house Communication Needs: None current occupation: [id number] Pets and animals: Yes Pets and animals: dog(s) Sexually active: Yes Do you think of yourself as: straight/heterosexual Current gender identity: female What is your relationship status?: How often do you talk on the phone with friends or family?: three or more times per week How often do you get together with friends or relatives?: three or more times per week How often do you attend druze or sabianist services?: 4 or more times per year Do you belong to any clubs or organized social groups?: no Panel score (0-1 are the most socially isolated patients): 3 What type of physical activity do you participate in: walking Duration: < 15 minutes/day Frequency: 1-2 times per week Radha/Confucianist: Alevism Special radha needs: No Seatbelt use: always Drive intox or ride w/intox 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 Appears stated age. Normal body habitus. Head: Normocephalic, no trauma. Eyes: Pupils PERRL, Red reflex noted, EOM's intact. Eyelids symmetrical without lesions, discharge, or swelling. ENT: Bilateral TM's WNL, External ear normal to inspection, no mastoid TTP, swelling, or erythema, Nasal turbinates WNL, no nasal discharge. Normal dentition, Posterior pharynx WNL, no exudate. Chest: RRR, Normal S1, S2, distal pulses intact. Resp: Lungs clear to auscultation bilaterally, no wheezes, rales, or rhonchi. Abdomen: Soft, non-distended, Normoactive bowel sounds all 4 quads. Musculoskeletal: Normal gait, 5/5 strength to all four extremities. Skin: No suspicious rashes or lesions. Capillary refill less than 2 sec. Neurologic: Cranial nerves II-XII intact. Alert and oriented x 3. Motor: No deficits noted. Sensory: Intact bilaterally all 4 extremities. Reflexes: DTR's intact bilaterally.. Hematologic/Lymphatic: No ecchymosis, no lymphadenopathy. Course Vital Signs Vital signs: Vital Signs Temperature 36.7 C 08/07/21 08:18 Pulse 67 08/07/21 08:18 Respiratory Rate 14 08/07/21 08:18 Blood Pressure 157/51 H 08/07/21 08:18 Pulse Oximetry 96 08/07/21 08:18 Temperature 36.7 C 08/07/21 08:18 Temperature Source Temporal Artery Scan 08/07/21 08:18 Pulse 67 08/07/21 08:18 Respiratory Rate 14 08/07/21 08:18 Respiratory Effort Non-Labored 08/07/21 08:25 Blood Pressure 157/51 H 08/07/21 08:18 Blood Pressure Position Sitting 08/07/21 08:18 Pulse Oximetry 96 08/07/21 08:18 Oxygen Delivery Method Room Air 08/07/21 08:18 Oxygen Flow Rate 0 08/07/21 08:18 Pain Level 0 08/07/21 08:18
[2021-08-07 08:42] LABS: Abs Immature Grans 0.06 10^3/uL (0.0-0.06); Absolute Basophil Count 0.05 10^3/uL (0.0-0.2); Absolute Eosinophil Count 0.16 10^3/uL (0.0-0.7); Absolute Lymphocyte Count 1.29 10^3/uL (1.2-3.4); Absolute Monocyte Count 1.04 10^3/uL (0.1-0.8); Absolute Neutrophil Count 7.83 10^3/uL (1.2-6.7); Basophils % 0.5; Eosinophils % 1.5; HCT 37.9 % (36.0-46.0); Immature Grans % 0.6; Lymphocytes % 12.4; MCH 24.6 pg (27.0-33.0); MCV 84.8 fL (80-95); MPV 9.1 fL (8.0-11.0); Nucleated RBC 0 %; Platelet Count 468 10^3/uL (130-400); RBC 4.47 10^6/uL (3.93-5.22); RDW 19.9 % (11.7-14.6); RDW-SD 60.9 fL; WBC 10.43 10^3/uL (4.4-10.8)
[2021-08-07 08:57] LABS: ALT 27 U/L (14-59); AST 30 U/L (15-37); Albumin 4.2 g/dL (3.4-5.0); Alkaline Phosphatase 79 U/L (46-116); Anion Gap 12.8 mmol/L (3-11); Bilirubin, Total 0.3 mg/dL (0.2-1.0); CO2 29.2 mmol/L (21.0-32.0); CREATININE 2.4 mg/dL (0.55-1.02); Calcium 9.8 mg/dL (8.5-10.1); Chloride 93 mmol/L (98-107); Estimated GFR 19.73 (mL/min/1.73m2); Glucose 137 mg/dL (74-106); Magnesium 2.9 mg/dL (1.8-2.4); Sodium 135 mmol/L (136-145); Total Protein 9.9 g/dL (6.4-8.2); Troponin I < 50 ng/L (<or=60)
[2021-08-07 08:58] LABS: BUN 99 mg/dL (7-18)
[2021-08-07 09:04] LABS: Prothrombin Time 12.5 sec (9.3-11.0)
[2021-08-07 09:07] LABS: INR 1.2 (0.9-1.1)
[2021-08-07] MEDS: POTASSIUM CHLORIDE 10 MEQ/100 ML BAG 100 MEQ IVPB (09:22)
[2021-08-07] MEDS: Normal Saline 1,000 ML 200 ML IV (09:23)
[2021-08-07 09:34] LABS: Iron 29 ug/dL (50-170); Total Iron Binding Capacity 547 ug/dL (250-450); Transferrin Sat 5 % (15-50)
[2021-08-07 09:48] LABS: Ferritin 20 ng/mL (8-252)
[2021-08-07 11:37] LABS: HCT 35.1 % (36.0-46.0); HGB 10.2 g/dL (11.2-15.7)
[2021-08-07 11:52] LABS: Troponin I < 50 ng/L (<or=60)
--- NOTE | 2021-08-07 15:23 | NUR.NOTE ---
The provider made a referral to [facility] for a lower GI bleed. I faxed the referral per Latisha Lindsey for an appt in a week. I put the referral in the primary care sales representative's box for follow up.
== END 2021-08-07 12:11 | disposition home or self-care (01) ==
PROVIDERS: Emergency Provider Registered Nurse Emergency; PCP Family Medicine
DX: K92.2 Gastrointestinal hemorrhage, unspecified (principal); D50.9 Iron deficiency anemia, unspecified; Z95.2 Presence of prosthetic heart valve; Z79.01 Long term (current) use of anticoagulants
CPT/HCPCS: 36415; 80053; 93005; 96361; 96365; 99284; 82728; 83540; 83550; 83735; 84484; 85014; 85018; 85025; 85610; 93010; J3480

== ENCOUNTER → 2021-08-11 13:02 | Outpatient (BNVA) | payer MEDICARE, SELFPAY | PROVIDERS: PCP Family Medicine; Visit Provider Internal Medicine Cardiovascular Disease | DX: I50.813 Acute on chronic right heart failure (principal); Z95.3 Presence of xenogenic heart valve; I11.0 Hypertensive heart disease with heart failure; I48.11 Longstanding persistent atrial fibrillation; Z79.01 Long term (current) use of anticoagulants; Z79.899 Other long term (current) drug therapy | CPT/HCPCS: 99214 ==

== ENCOUNTER 2021-08-21 18:38 | Outpatient (CLI) | payer MEDICARE, SELFPAY ==
[2021-08-21 17:01] LABS: Abs Immature Grans 0.04 10^3/uL (0.0-0.06); Absolute Basophil Count 0.05 10^3/uL (0.0-0.2); Absolute Eosinophil Count 0.22 10^3/uL (0.0-0.7); Absolute Lymphocyte Count 2.08 10^3/uL (1.2-3.4); Absolute Monocyte Count 0.86 10^3/uL (0.1-0.8); Absolute Neutrophil Count 6.25 10^3/uL (1.2-6.7); Basophils % 0.5; Eosinophils % 2.3; HCT 38.2 % (36.0-46.0); HGB 11.2 g/dL (11.2-15.7); Immature Grans % 0.4; Lymphocytes % 21.9; MCH 24.6 pg (27.0-33.0); MCHC 29.3 % (32.0-36.0); MPV 9.3 fL (8.0-11.0); Monocytes % 9.1; Neutrophils % 65.8; Nucleated RBC 0 %; Platelet Count 496 10^3/uL (130-400); RBC 4.55 10^6/uL (3.93-5.22); RDW 19.2 % (11.7-14.6)
[2021-08-21 17:10] LABS: ALT 34 U/L (14-59); AST 36 U/L (15-37); Albumin 4.1 g/dL (3.4-5.0); Alkaline Phosphatase 69 U/L (46-116); Anion Gap 10.5 mmol/L (3-11); Bilirubin, Total 0.3 mg/dL (0.2-1.0); CO2 30.5 mmol/L (21.0-32.0); CREATININE 2.3 mg/dL (0.55-1.02); Calcium 9.8 mg/dL (8.5-10.1); Chloride 93 mmol/L (98-107); Estimated GFR 20.73 (mL/min/1.73m2); Glucose 114 mg/dL (74-106); Potassium 3.3 mmol/L (3.5-5.1); Sodium 134 mmol/L (136-145); Total Protein 9.4 g/dL (6.4-8.2)
[2021-08-21 20:54] LABS: BUN 84 mg/dL (7-18)
== END 2021-08-21 18:39 | disposition home or self-care (01) ==
LOC: LBO 18:40
PROVIDERS: PCP Family Medicine; Visit Provider Family Medicine
DX: E86.0 Dehydration (principal); Z00.00 Encounter for general adult medical examination without abnormal findings
CPT/HCPCS: 36415; 80053; 85025

== ENCOUNTER → 2021-09-15 13:59 | Outpatient (BNVA) | payer MEDICARE, SELFPAY | PROVIDERS: PCP Family Medicine; Visit Provider Internal Medicine Cardiovascular Disease | DX: Z95.3 Presence of xenogenic heart valve (principal) | CPT/HCPCS: 36415; 99214 ==

== ENCOUNTER 2021-09-15 16:10 | Outpatient (REF) | payer MEDICARE, SELFPAY ==
[2021-09-15 16:42] LABS: BUN 43 mg/dL (7-18); CREATININE 1.7 mg/dL (0.55-1.02); Chloride 100 mmol/L (98-107); Estimated GFR 29.38 (mL/min/1.73m2); Glucose 164 mg/dL (74-106); Potassium 4.2 mmol/L (3.5-5.1); Sodium 138 mmol/L (136-145)
== END 2021-09-15 16:11 | disposition home or self-care (01) ==
LOC: LBN 16:10
PROVIDERS: PCP Family Medicine; Visit Provider Internal Medicine Cardiovascular Disease
DX: I50.813 Acute on chronic right heart failure (principal)
CPT/HCPCS: 80048

== ENCOUNTER → 2021-10-27 12:52 | Outpatient (BNVA) | payer MEDICARE, SELFPAY | PROVIDERS: PCP Family Medicine; Visit Provider Internal Medicine Cardiovascular Disease | DX: I48.11 Longstanding persistent atrial fibrillation (principal); Z95.3 Presence of xenogenic heart valve; I50.813 Acute on chronic right heart failure; N18.9 Chronic kidney disease, unspecified | CPT/HCPCS: 99214; 99213 ==

== ENCOUNTER 2021-11-20 08:47 | Outpatient (CLI) | payer MEDICARE, SELFPAY ==
--- NOTE | 2021-11-20 08:45 | RT.EKG_ITS ---
APPROVED REPORT Exam: Resting ECG Reason for Exam: monitor QTc due to amiodarone TX Patient Location: O HR:76 bpm ECG Measurements Heart Rate [address] 166 P 115 QRSd 128 QRS -30 QT 447 T 100 QTc 503 Conclusion Sinus rhythm...normal P axis, V-rate 50- 99 Atrial premature complexes...SV complexes w/ short R-R intvls IVCD Prolonged QT interval...QTc >500mS
== END 2021-11-20 08:48 | disposition home or self-care (01) ==
LOC: DI.CARD 08:49
PROVIDERS: PCP Family Medicine; Visit Provider Internal Medicine Cardiovascular Disease
DX: R94.31 Abnormal electrocardiogram [ECG] [EKG]; Z79.899 Other long term (current) drug therapy; I48.11 Longstanding persistent atrial fibrillation; Z95.3 Presence of xenogenic heart valve; I27.20 Pulmonary hypertension, unspecified; I50.813 Acute on chronic right heart failure
CPT/HCPCS: 93010

== ENCOUNTER → 2021-11-20 08:58 | Outpatient (BNVA) | payer MEDICARE, SELFPAY | PROVIDERS: PCP Family Medicine; Visit Provider Internal Medicine Cardiovascular Disease | DX: I27.20 Pulmonary hypertension, unspecified (principal); I48.11 Longstanding persistent atrial fibrillation; G47.33 Obstructive sleep apnea (adult) (pediatric); Z95.3 Presence of xenogenic heart valve; I50.813 Acute on chronic right heart failure; N18.9 Chronic kidney disease, unspecified | CPT/HCPCS: 99215 ==

== ENCOUNTER 2021-11-20 09:32 | Inpatient (IN) | payer MEDICARE, SELFPAY ==
[2021-11-20] VITALS (38 sets, daily range): BP systolic 105–139; BP diastolic 35–59; PULSE 57–80; RESP 17–26; TEMP 36–36.7; O2SAT 85–100
--- NOTE | 2021-11-20 09:30 | RT.EKG_ITS ---
APPROVED REPORT Exam: Resting ECG Reason for Exam: Dyspnea Patient Location: I HR:74 bpm ECG Measurements Heart Rate 74 AXIS [place] 175 P 100 QRSd 119 QRS -62 QT 443 T 76 QTc 492 Conclusion Sinus rhythm...normal P axis, V-rate 60- 99 Incomplete left bundle branch block...QRSd>110mS, terminal axis(-90,-1) sinus rhythm, left axis, normal intervals, cinsuder slight elevation of ST segment in aVR without rec ipricol changes
--- NOTE | 2021-11-20 09:55 | W.ED.GENAD ---
Discharge Plan Disposition Patient Disposition: [facility] INPATIENT Condition: Stable Discharge Details Chief Complaint: SOB Clinical Impression: CHF (congestive heart failure), Anemia Primary Care Provider: Kimberly Nicole ED Provider: Mervin Smith Home Meds and New Rx's Prescriptions: No Action albuterol sulfate 90 mcg/actuation HFA aerosol inhaler 2 puff IH QID PRN0RF metoprolol succinate 100 mg tablet extended release 24 hr 50 mg PO DAILY 0RF metolazone 5 mg tablet 5 mg PO .COMPLEX Qty: 60 5RF Rx Instructions: 5 mg PO As directed; Take 1 pill Mondays and , 1 hour prior to Lasix amiodarone 400 mg tablet 200 mg PO DAILY 0RF levothyroxine 25 mcg tablet 25 mcg PO DAILY 0RF acetaminophen [Tylenol] 325 mg tablet 325 - 650 mg PO Q4H PRN PRN (Reason: pain) Qty: 30 0RF (DME) blood sugar diagnostic Strip See Dose Instructions .ROUTE .MEDSUPPLY Qty: 400 3RF Dose Instruction: As directed Rx Instructions: use tid and prn.Accu-Chek Smart View Test Strip simvastatin 10 mg tablet 10 mg PO QPM Qty: 90 3RF magnesium chloride 64 mg tablet,delayed release (DR/EC) 64 mg PO BID Qty: 180 3RF Eliquis 5 mg tablet 5 mg PO BID Qty: 60 11RF allopurinol 100 mg tablet 100 mg PO DAILY Qty: 90 1RF colchicine 0.6 mg tablet 0.6 mg PO DAILY PRN (Reason: gout) Qty: 20 3RF metformin 500 mg tablet 500 mg PO BID Qty: 180 3RF furosemide [Lasix] 20 mg tablet 40 mg PO BID Qty: 180 2RF Medical Decision Making 76-year-old female history of CHF, TAVR, A. fib anticoagulation and rate controlled, presents with fluid overload state worsening orthopnea shortness of breath dyspnea on exertion, pitting edema to level shins bilaterally, B-lines bilaterally on bedside ultrasound, EKG normal sinus rhythm nonischemic, patient is normotensive not tachycardic not hypoxic however does have tachypnea. High clinical suspicion for CHF exacerbation in the setting of medication noncompliance versus must consider ACS versus less likely PE versus less likely pneumothorax versus less likely aortic pathology also given afebrile and chronic in nature less likely acute infection such as viral or bacterial pneumonia. Patient require labs chest x-ray EKG IV diuretics and admission for diuresis. Patient intermittently desat into the high 80s placed on 2 L nasal cannula, Moore catheter placed given pending diuresis, incidentally noted to have a hemoglobin of 7.7 which is down trended from her baseline of 11, patient does endorse a history of what sounds like upper GI bleed has had tarry stools in the past currently normal stool in rectal vault brown, guaiac negative. Will dose Protonix empirically. Patient to be admitted for diarrhea HPI General Date/Time Provider Initiated Documentation: 11/20/21 09:33. HPI Narrative: 76-year-old female history of CHF, TAVR, A. fib rate controlled and on anticoagulation, presents referred down from cardiology clinic for evaluation of worsening shortness of breath and fluid overload state, has only been taking half of her metolazone prescription due to adverse side effect mainly nausea, has noted worsening shortness of breath and orthopnea over the last several weeks. Related Data Home Medications Medication Instructions Recorded Confirmed albuterol sulfate 90 mcg/actuation 2 puff IH QID PRN 04/17/18 11/20/21 aerosol inhaler acetaminophen 325 mg tablet 325 - 650 mg PO Q4H PRN PRN #30 tab 05/24/18 11/20/21 (Tylenol) blood sugar diagnostic #400 each NS 07/29/20 11/20/21 simvastatin 10 mg tablet 10 mg PO QPM #90 tab 08/13/20 11/20/21 magnesium chloride 64 mg 64 mg PO BID #180 tab 04/07/21 11/20/21 (magnesium chloride) tablet,delayed release metoprolol succinate 100 mg 50 mg PO DAILY tab 04/29/21 11/20/21 tablet,extended release 24 hr amiodarone 400 mg tablet 200 mg PO DAILY tab 06/24/21 11/20/21 apixaban 5 mg tablet (Eliquis) 5 mg PO BID #60 tab 07/15/21 11/20/21 allopurinol 100 mg tablet 100 mg PO DAILY #90 tab 08/13/21 11/20/21 levothyroxine 25 mcg tablet 25 mcg PO DAILY tab 08/21/21 11/20/21 colchicine 0.6 mg tablet 0.6 mg PO DAILY PRN #20 tab 10/15/21 11/20/21 metolazone 5 mg tablet 5 mg PO .COMPLEX #60 tab 10/27/21 11/20/21 metformin 500 mg tablet 500 mg PO BID #180 tab 11/16/21 11/20/21 furosemide 20 mg tablet (Lasix) 40 mg PO BID #180 tab 11/18/21 11/20/21 Previous Rx's Medication Instructions Recorded acetaminophen 325 mg tablet 325 - 650 mg PO Q4H PRN PRN #30 tab 05/24/18 (Tylenol) blood sugar diagnostic #400 each NS 07/29/20 simvastatin 10 mg tablet 10 mg PO QPM #90 tab 08/13/20 magnesium chloride 64 mg 64 mg PO BID #180 tab 04/07/21 (magnesium chloride) tablet,delayed release apixaban 5 mg tablet (Eliquis) 5 mg PO BID #60 tab 07/15/21 allopurinol 100 mg tablet 100 mg PO DAILY #90 tab 08/13/21 colchicine 0.6 mg tablet 0.6 mg PO DAILY PRN #20 tab 10/15/21 metolazone 5 mg tablet 5 mg PO .COMPLEX #60 tab 10/27/21 metformin 500 mg tablet 500 mg PO BID #180 tab 11/16/21 furosemide 20 mg tablet (Lasix) 40 mg PO BID #180 tab 11/18/21 Allergies Allergy/AdvReac Type Severity Reaction Status Date / Time aspirin Allergy Hives Verified 11/20/21 09:44 Penicillins Allergy Verified 11/20/21 09:44 tetracycline Allergy Verified 11/20/21 09:44 adhesive AdvReac Intermediate Topical Verified 11/20/21 09:44 Irritation General Stated Complaint: SOB BROOKE: 2 Review of Systems Narrative: Review of Systems Constitutional: negative Eyes: negative ENT: negative Cardiovascular: negative Respiratory: Shortness of breath Gastrointestinal: negative : negative Musculoskeletal: negative Skin: negative Neurologic: negative Psych: negative PFSH All Active Problems (Updated 11/20/21 @ 11:03 by Mervin Smith MD) Anemia (Chronic) On amiodarone therapy (Acute) Diabetic neuropathy (Acute) Pre-ulcerative corn or callous (Acute) Bilateral bunions (Acute) Diabetes mellitus (Chronic 11/07/12) Fbgjy-bq-[id number] kidney injury (Acute) Severe aortic stenosis (Acute) Status post transcatheter aortic valve replacement (TAVR) using bioprosthesis (Acute ~04/2021) Pulmonary hypertension (Acute) CHF (congestive heart failure) (Chronic) Obstructive sleep apnea syndrome (Acute 09/26/12) DX SEP 2012 AT [facility]; wears CPAP machine. Colon polyp (Acute 07/10/18) 12/19 tubular adenoma Atrial fibrillation (Acute 06/23/12) 02/19 start Tikosyn 06/21 and 11/20 recurrent 2012 ablation at [facility] [place] echo 2012 at [facility] [place], normal LVEF and valves 05/2021 RVR, s/p RODRIGUEZ CV and change to amiodarone. Asthma (Acute) Gastroesophageal reflux disease (Chronic) Obesity, morbid (Chronic) a. BMI of 52 CKD (chronic kidney disease) (Chronic) Medical History Diverticulosis Essential hypertension (08/13/13) Former smoker (08/16/14) 5 pack yr history GI bleed had melena transiently in 02/2021; unable to be evaluated due to AV stenosis. Gout intermittent, diet based. Hyperlipidemia Hypothyroidism (12/06/14) residential current use of antiarrhythmic medical therapy (08/21/13) Osteoarthritis Peptic ulcer disease with hemorrhage hx x 3 Restless legs (01/18/13) sleep study low iron (not anemic) SVT (supraventricular tachycardia) a. generally converts with Amiodarone Surgical History History of esophagogastroduodenoscopy (EGD) (~05/2018) 07/10/18 History of open sigmoidectomy S/P aortic valve replacement (~04/22/21) Complicated by extravasation of contrast on iliofemoral angiography. 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 S/P colonoscopy (~07/10/18) Status post abdominal hysterectomy Status post appendectomy Status post total bilateral knee replacement Family History Mother , 65 Thoracic aneurysm, ruptured Personal history of malignant neoplasm LYMPHOMA Father , 64 Heart disease Myocardial infarction Stroke Maternal Grandfather , 80 Heart disease Stroke Paternal Grandfather , 65 Heart disease Maternal Grandmother , 83 Heart disease Paternal Grandmother , 40 Cancer Son No problems noted. Son No problems noted. Social History Smoking/Tobacco Use Status: Former Tobacco Use Quit Date: 08/08/72 Tobacco: How many years used: 4 Smoking risk assessment performed?: Yes Alcohol Intake: never Drug use: Never Substance use type: does not use Caregiver/Support person: No Household members: spouse Housing: house Communication Needs: None current occupation: [employer] Pets and animals: Yes Pets and animals: dog(s) Sexually active: Yes Do you think of yourself as: straight/heterosexual Current gender identity: female What is your relationship status?: How often do you talk on the phone with friends or family?: three or more times per week How often do you get together with friends or relatives?: three or more times per week How often do you attend anabaptist or congregational services?: 4 or more times per year Do you belong to any clubs or organized social groups?: no Panel score (0-1 are the most socially isolated patients): 3 What type of physical activity do you participate in: walking Duration: < 15 minutes/day Frequency: 1-2 times per week Radha/Presybeterian: Mormon Special radha needs: No Seatbelt use: always Drive intox or ride w/intox delivery route driver: No Do you feel safe at home: Yes Do you feel safe in your relationship?: Yes Exam Narrative Exam Narrative: Physical Examination General: alert, awake, cooperative, mild distress HEENT: normocephalic, atraumatic; PERRL, EOM intact, conjunctiva normal; no nasal discharge; moist mucous membranes, oral and pharyngeal mucosa normal, tolerating secretions Neck: supple, trachea midline; full ROM Chest: normal to inspection Respiratory: Speaking in short sentences, tachypneic; clear to auscultation, no wheezing, rales or rhonchi Cardiac: regular rate, regular rhythm, S1S2 intact, no murmurs rubs or gallops GI: abdomen soft, non-tender, non-distended; no palpable mass or hepatosplenomegaly Skin: no lesions, rashes or trauma appreciated Neuro: AAOx3, normal speech, moving all extremities Extremities: Bilateral pitting edema to level shins Psych: Appropriate mood and affect Course Vital Signs Vital signs: Vital Signs Temperature 36.7 C 11/20/21 09:36 Pulse 72 11/20/21 09:36 Respiratory Rate 19 11/20/21 09:36 Blood Pressure 126/38 L 11/20/21 09:36 Pulse Oximetry 98 11/20/21 09:36 Temperature 36.7 C 11/20/21 09:36 Temperature Source Temporal Artery Scan 11/20/21 09:36 Pulse 72 11/20/21 09:36 Respiratory Rate 17 11/20/21 09:46 Respiratory Effort 11/20/21 09:46 Respiratory Depth Normal 11/20/21 09:46 Respiratory Pattern Normal 11/20/21 09:46 Blood Pressure 126/38 L 11/20/21 09:36 Blood Pressure Position Supine 11/20/21 09:36 Pulse Oximetry 98 11/20/21 09:36 Pain Level 0 11/20/21 09:36
[2021-11-20] MEDS: Furosemide 40 MG/4 ML VIAL IVP ×2 (09:59→16:49)
[2021-11-20 10:11] LABS: Source Nasal/Nares
[2021-11-20 10:13] LABS: Abs Immature Grans 0.04 10^3/uL (0.0-0.06); Absolute Basophil Count 0.06 10^3/uL (0.0-0.2); Absolute Eosinophil Count 0.28 10^3/uL (0.0-0.7); Absolute Lymphocyte Count 1.38 10^3/uL (1.2-3.4); Absolute Monocyte Count 0.75 10^3/uL (0.1-0.8); Absolute Neutrophil Count 4.86 10^3/uL (1.2-6.7); Basophils % 0.8; Eosinophils % 3.8; HCT 29.9 % (36.0-46.0); HGB 7.7 g/dL (11.2-15.7); Immature Grans % 0.5; Lymphocytes % 18.7; MCH 21.8 pg (27.0-33.0); MCHC 25.8 % (32.0-36.0); MCV 84.5 fL (80-95); MPV 8.7 fL (8.0-11.0); Monocytes % 10.2; Nucleated RBC 0.3 % (0.0-0.3); Platelet Count 504 10^3/uL (130-400); RBC 3.54 10^6/uL (3.93-5.22); RDW 20.1 % (11.7-14.6); RDW-SD 62.5 fL; WBC 7.37 10^3/uL (4.4-10.8)
[2021-11-20 10:31] LABS: ALT 27 U/L (14-59); AST 24 U/L (15-37); Alkaline Phosphatase 63 U/L (46-116); Anion Gap 13.6 mmol/L (3-11); BUN 72 mg/dL (7-18); Bilirubin, Total 0.4 mg/dL (0.2-1.0); CO2 27.4 mmol/L (21.0-32.0); CREATININE 2.3 mg/dL (0.55-1.02); Calcium 9.7 mg/dL (8.5-10.1); Chloride 97 mmol/L (98-107); Estimated GFR 20.67 (mL/min/1.73m2); Glucose 115 mg/dL (74-106); NT-proBNP 2478 pg/mL (<300); Potassium 3.7 mmol/L (3.5-5.1); Sodium 138 mmol/L (136-145); Total Protein 8.7 g/dL (6.4-8.2); Troponin I < 50 ng/L (<or=60)
[2021-11-20 10:33] LABS: PTT Activated 23.6 sec (21.0-27.5); Prothrombin Time 13.5 sec (9.3-11.0)
--- NOTE | 2021-11-20 10:33 | DI.RAD_ITS ---
Exam(s) XR PORTABLE CHEST AP EXAM: XR PORTABLE CHEST AP CLINICAL HISTORY: SOB, hx of CHF TECHNIQUE: 2D digital imaging was performed of the chest. Two images were obtained. An AP view was obtained. COMPARISON: CR,XR XR PORTABLE CHEST AP from 05/10/2021 FINDINGS: MEDIASTINUM: Normal. HEART: Enlarged heart. There is an aortic valve replacement. PULMONARY VASCULATURE: Atherosclerosis of the thoracic aorta. Pulmonary venous congestion. LUNGS: Interstitial densities in the lungs suspicious for edema. No focal consolidating infiltrate. PLEURAL SPACE: No pleural effusion or pneumothorax. BONE:Within normal limits for the patient's age. OTHER FINDINGS:Normal. IMPRESSION: Findings suspicious for congestive heart failure. DATA REPOSITORY: RADIATION DOSE DELIVERED:
[2021-11-20 10:35] LABS: INR 1.3 (0.9-1.1)
[2021-11-20 10:40] LABS: Anisocytosis 2+; Basophilic Stippling Present; Hypochromasia 1+
[2021-11-20 10:46] LABS: Poikilocytes 2+
[2021-11-20 10:51] LABS: COVID-19 PCR Negative (Negative)
[2021-11-20] MEDS: Normal Saline Flush 10 ML SYR IVP ×2 (11:20→16:49)
[2021-11-20] MEDS: Pantoprazole 40 MG VIAL 80 MG IVP (11:22)
[2021-11-20 13:44] LABS: Troponin I < 50 ng/L (<or=60)
--- NOTE | 2021-11-20 15:30 | HPE_ITS ---
Date of service: 11/20/21 Time of Service: 15:31 Assessment and Plan Assessment and plan (1) Status post transcatheter aortic valve replacement (TAVR) using bioprosthesis: Status: Acute Assessment and plan: Apr 2021 (2) CHF (congestive heart failure): Status: Chronic Assessment and plan: Increasing fluid retention and shortness of air; particularly BETTS. Doesn't use supplemental O2 at home; now on 2L CXR indicates pulmonary edema. Lasix 40mg IV BID; after first dose she has diuresed well. Added oral K. Low Na diet. Echocardiogram on Tuesday. Qualifiers: Heart failure chronicity: acute on chronic Heart failure type: right- sided Qualified Code(s): I50.813 - Acute on chronic right heart failure (3) Atrial fibrillation: Status: Acute Assessment and plan: Now in sinus rhythm. Cont metoprolol and apixiban. Telemetry monitoring. Qualifiers: Atrial fibrillation type: longstanding persistent Qualified Code(s): I4 8.11 - Longstanding persistent atrial fibrillation (4) Asthma: Status: Acute Assessment and plan: No acute exacerbation. No wheezing on exam. PRN albuterol. Qualifiers: Asthma complication type: uncomplicated Asthma persistence: intermittent Asthma severity: mild Qualified Code(s): J45.20 - Mild intermittent asthma, uncomplicated (5) CKD (chronic kidney disease): Status: Chronic Assessment and plan: Since Jul 2021 her creatinine has varies between 1.5 and 2.4; currently 2.3 Monitor closely while diuresing with IV lasix. Qualifiers: Chronic kidney disease stage: unspecified stage Qualified Code(s): N18.9 - Chronic kidney disease, unspecified (6) Anemia: Status: Chronic Assessment and plan: Hgb 11.2 in Aug 2021; currently 7.7. Some dilutional componenet likely d/t fluid retention. However, she has noted intermittent dark stools and has epigastric tenderness. H/O PUD. Protonix 80mg IV given in ED; cont with 40mg IV daily. Hematest stool x 3 (negative test in the ED). Check iron levels. (7) GI bleed: Assessment and plan: See above. History of Present Illness History of Present Illness Chief Complaint: Shortness of breath Narrative: This is a 76 yo female with a PMH of chronic diastolic CHF, aortic stenosis s/p TAVR, pulmonary hypertension, LAI, Afib, Asthma GERD, Peptic ulcers, morbid obesity, CKD. She presented to the ED at the recommendation of Dr Becerra, Cardiology, who saw her first in the office on the day of admission. She endorsed a 5 lb weight gain, increasing SOA. She reports ongoing inability to perform household tasks w/o shortness of air for months. She endorses limiting her Na intake judiciously and not drinking fluids excessively. She denies CP, palpitations. She does report some epigastric discomfort and has recently noted some dark appearing stools, but not with each BM. No diarrhea, N/V. ED work up: Vital Signs Temperature ?36.7 C ?11/20/21 09:36 Pulse ?72 ?11/20/21 09:36 Respiratory Rate ?19 ?11/20/21 09:36 Blood Pressure ?126/38 L ?11/20/21 09:36 Pulse Oximetry ?98 ?11/20/21 09:36 On RA she desaturated to the high 80's intermittently. On 2L NC her O2 saturations were maintained in a normal range. CXR showed interstitial densities consistent with congestive heart failure. EKG NSR. K 3.7. BUN 72. Creatinine 2.3. BNP 2478. She was 40mg IV lasix and 80 mg IVP pantoprazole in the ED. A nation catheter was placed. PFSH All Active Problems (Updated 11/20/21 @ 11:03 by Mervin Smith MD) Anemia (Chronic) On amiodarone therapy (Acute) Diabetic neuropathy (Acute) Pre-ulcerative corn or callous (Acute) Bilateral bunions (Acute) Diabetes mellitus (Chronic 11/07/12) Aiqqt-sa-pczszqe kidney injury (Acute) Severe aortic stenosis (Acute) Status post transcatheter aortic valve replacement (TAVR) using bioprosthesis (Acute ~04/2021) Pulmonary hypertension (Acute) CHF (congestive heart failure) (Chronic) Obstructive sleep apnea syndrome (Acute 09/26/12) DX SEP 2012 AT [facility]; wears CPAP machine. Colon polyp (Acute 07/10/18) 12/19 tubular adenoma Atrial fibrillation (Acute 06/23/12) 02/19 start Tikosyn 06/21 and 11/20 recurrent 2013 ablation at [facility] [place] echo 2012 at [facility] [place], normal LVEF and valves 05/2021 RVR, s/p RODRIGUEZ CV and change to amiodarone. Asthma (Acute) Gastroesophageal reflux disease (Chronic) Obesity, morbid (Chronic) a. BMI of 52 CKD (chronic kidney disease) (Chronic) Medical History Diverticulosis Essential hypertension (08/13/13) Former smoker (08/16/14) 5 pack yr history GI bleed had melena transiently in 02/2021; unable to be evaluated due to AV stenosis. Gout intermittent, diet based. Hyperlipidemia Hypothyroidism (12/06/14) senior living current use of antiarrhythmic medical therapy (08/21/13) Osteoarthritis Peptic ulcer disease with hemorrhage hx x 3 Restless legs (01/18/13) sleep study low iron (not anemic) SVT (supraventricular tachycardia) a. generally converts with Amiodarone Surgical History History of esophagogastroduodenoscopy (EGD) (~05/2018) 07/10/18 History of open sigmoidectomy S/P aortic valve replacement (~04/22/21) Complicated by extravasation of contrast on iliofemoral angiography. 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 S/P colonoscopy (~07/10/18) Status post abdominal hysterectomy Status post appendectomy Status post total bilateral knee replacement Family History Mother , 65 Thoracic aneurysm, ruptured Personal history of malignant neoplasm LYMPHOMA Father , 64 Heart disease Myocardial infarction Stroke Maternal Grandfather , 80 Heart disease Stroke Paternal Grandfather , 65 Heart disease Maternal Grandmother , 83 Heart disease Paternal Grandmother , 40 Cancer Son No problems noted. Son No problems noted. Social History Smoking/Tobacco Use Status: Former Tobacco Use Quit Date: 08/08/72 Tobacco: How many years used: 4 Smoking risk assessment performed?: Yes Alcohol Intake: never Drug use: Never Substance use type: does not use Caregiver/Support person: No Household members: spouse Housing: house Communication Needs: None current occupation: [employer] Pets and animals: Yes Pets and animals: dog(s) Sexually active: Yes Do you think of yourself as: straight/heterosexual Current gender identity: female What is your relationship status?: How often do you talk on the phone with friends or family?: three or more times per week How often do you get together with friends or relatives?: three or more times per week How often do you attend pentecostal or anglican services?: 4 or more times per year Do you belong to any clubs or organized social groups?: no Panel score (0-1 are the most socially isolated patients): 3 What type of physical activity do you participate in: walking Duration: < 15 minutes/day Frequency: 1-2 times per week Radha/Mosque: Orthodox Special radha needs: No Seatbelt use: always Drive intox or ride w/intox jeep driver: No Do you feel safe at home: Yes Do you feel safe in your relationship?: Yes Meds Allergies and Home Medications Allergies Allergy/AdvReac Type Severity Reaction Status Date / Time aspirin Allergy Hives Verified 11/20/21 09:44 Penicillins Allergy Verified 11/20/21 09:44 tetracycline Allergy Verified 11/20/21 09:44 adhesive AdvReac Intermediate Topical Verified 11/20/21 09:44 Irritation Home Medications Medication Instructions Recorded Confirmed Type albuterol sulfate 90 mcg/actuation 2 puff IH QID PRN 04/17/18 11/20/21 History aerosol inhaler acetaminophen 325 mg tablet 325 - 650 mg PO Q4H PRN PRN #30 tab 05/24/18 0 11/20/21 Rx (Tylenol) blood sugar diagnostic #400 each NS 07/29/20 11/20/21 Rx simvastatin 10 mg tablet 10 mg PO QPM #90 tab 08/13/20 11/20/21 Rx magnesium chloride 64 mg 64 mg PO BID #180 tab 04/07/21 11/20/21 Rx (magnesium chloride) tablet,delayed release metoprolol succinate 100 mg 50 mg PO DAILY tab 04/29/21 11/20/21 History tablet,extended release 24 hr amiodarone 400 mg tablet 200 mg PO DAILY tab 06/24/21 11/20/21 History apixaban 5 mg tablet (Eliquis) 5 mg PO BID #60 tab 07/15/21 11/20/21 Rx allopurinol 100 mg tablet 100 mg PO DAILY #90 tab 08/13/21 11/20/21 Rx levothyroxine 25 mcg tablet 25 mcg PO DAILY tab 08/21/21 11/20/21 History colchicine 0.6 mg tablet 0.6 mg PO DAILY PRN #20 tab 10/15/21 11/20/21 Rx metolazone 5 mg tablet 5 mg PO .COMPLEX #60 tab 10/27/21 11/20/21 Rx metformin 500 mg tablet 500 mg PO BID #180 tab 11/16/21 11/20/21 Rx furosemide 20 mg tablet (Lasix) 40 mg PO BID #180 tab 11/18/21 11/20/21 Rx Exam Narrative Exam Narrative: Obese female sitting on side of the bed. NC in place on 2L O2. Const General: cooperative Nutritional Appearance: obese Orientation: oriented x3 Eyes General: appearance normal, both eyes and all related structures Sclera: sclerae normal Resp Effort & Inspection: normal respiratory effort Auscultation: clear to auscultation bilaterally and diminished lung sounds Cardio Rate: regular rate Rhythm: regular rhythm Heart Sounds: S1 normal and S2 normal GI Palpation: soft, not firm, no guarding and tender in the epigastrum Skin General skin exam: no rashes or lesions noted Extrem General: no calf tenderness and edema Laterality: bilateral (1+ ) Results Labs Result diagrams: 11/20/21 09:43 11/20/21 09:43 Labs: Laboratory Results - last 24 hr 11/20/21 11/20/21 11/20/21 09:43 09:43 10:04 WBC 7.37 RBC 3.54 L Hgb 7.7 L Hct 29.9 L MCV 84.5 MCH 21.8 L MCHC 25.8 L RDW 20.1 H Plt Count 504 H MPV 8.7 Immature Gran % 0.5 Neutrophils % 66.0 Lymphocytes % 18.7 Monocytes % 10.2 Eosinophils % 3.8 Basophils % 0.8 Nucleated RBC % 0.3 Absolute Neutrophils 4.86 Absolute Lymphocytes 1.38 Absolute Monocytes 0.75 Absolute Eosinophils 0.28 Absolute Basophils 0.06 RBC Morphology See Below Hypochromasia 1+ Poikilocytosis 2+ Basophilic Stippling Present Anisocytosis 2+ PT INR APTT Sodium 138 Potassium 3.7 Chloride 97 L Carbon Dioxide 27.4 Anion Gap 13.6 H BUN 72 H Creatinine 2.3 H Estimated GFR/1.73 m2 20.67 Glucose 115 H Calcium 9.7 Total Bilirubin 0.4 AST 24 ALT 27 Alkaline Phosphatase 63 Troponin I < 50 NT-Pro-B Natriuret Pep 2478 H Total Protein 8.7 H Albumin 4.0 COVID-19 Source Nasal/Nares SARS-CoV-2 (PCR) Negative 11/20/21 11/20/21 10:12 13:15 WBC RBC Hgb Hct MCV MCH MCHC RDW Plt Count MPV Immature Gran % Neutrophils % Lymphocytes % Monocytes % Eosinophils % Basophils % Nucleated RBC % Absolute Neutrophils Absolute Lymphocytes Absolute Monocytes Absolute Eosinophils Absolute Basophils RBC Morphology Hypochromasia Poikilocytosis Basophilic Stippling Anisocytosis PT 13.5 H INR 1.3 H APTT 23.6 Sodium Potassium Chloride Carbon Dioxide Anion Gap BUN Creatinine Estimated GFR/1.73 m2 Glucose Calcium Total Bilirubin AST ALT Alkaline Phosphatase Troponin I < 50 NT-Pro-B Natriuret Pep Total Protein Albumin COVID-19 Source SARS-CoV-2 (PCR) Last Vital Signs Temp 36 C L 11/20/21 15:15 Pulse 62 11/20/21 15:15 Resp 22 11/20/21 15:15 BP 138/53 L 11/20/21 15:15 Pulse Ox 93 11/20/21 15:15
[2021-11-20] MEDS: Potassium Chloride 20 MEQ TABCR PO (15:45)
[2021-11-20] MEDS: Simvastatin 10 MG TAB PO (19:51)
[2021-11-20] MEDS: Magnesium Chloride 64 MG TABCR PO (19:51)
[2021-11-20] MEDS: Apixaban 5 MG TAB PO (19:51)
[2021-11-20 20:03] LABS: Iron 11 ug/dL (50-170); Total Iron Binding Capacity 534 ug/dL (250-450); Transferrin Sat 2 % (15-50)
[2021-11-20 22:31] LABS: Lab Add On Test DONE
[2021-11-21] VITALS (8 sets, daily range): BP systolic 131–158; BP diastolic 52–73; PULSE 55–64; RESP 16–20; TEMP 36.1–36.8; O2SAT 91–95
[2021-11-21] MEDS: Levothyroxine 25 MCG TAB PO (05:20)
[2021-11-21 06:36] LABS: Abs Immature Grans 0.04 10^3/uL (0.0-0.06); Absolute Basophil Count 0.05 10^3/uL (0.0-0.2); Absolute Eosinophil Count 0.43 10^3/uL (0.0-0.7); Absolute Lymphocyte Count 1.37 10^3/uL (1.2-3.4); Absolute Monocyte Count 0.85 10^3/uL (0.1-0.8); Basophils % 0.6; Eosinophils % 5.3; HCT 27.3 % (36.0-46.0); HGB 7.2 g/dL (11.2-15.7); Immature Grans % 0.5; Lymphocytes % 16.8; MCHC 26.4 % (32.0-36.0); MCV 83.2 fL (80-95); MPV 8.8 fL (8.0-11.0); Monocytes % 10.4; Neutrophils % 66.4; Platelet Count 477 10^3/uL (130-400); RBC 3.28 10^6/uL (3.93-5.22); RDW 19.9 % (11.7-14.6); RDW-SD 59.7 fL; WBC 8.14 10^3/uL (4.4-10.8)
[2021-11-21 06:45] LABS: Anion Gap 10.7 mmol/L (3-11); BUN 74 mg/dL (7-18); CO2 28.3 mmol/L (21.0-32.0); CREATININE 2.3 mg/dL (0.55-1.02); Calcium 9.3 mg/dL (8.5-10.1); Chloride 98 mmol/L (98-107); Estimated GFR 20.67 (mL/min/1.73m2); Glucose 117 mg/dL (74-106); Magnesium 2.5 mg/dL (1.8-2.4); Potassium 3.5 mmol/L (3.5-5.1); Sodium 137 mmol/L (136-145)
[2021-11-21 07:14] LABS: Anisocytosis 1+; Diff Comment Agrees w/ Instrument; Hypochromasia 1+; Macrocytosis 1+; Microcytosis 1+
[2021-11-21] MEDS: Normal Saline Flush 10 ML SYR IVP (08:53)
[2021-11-21] MEDS: Furosemide 40 MG/4 ML VIAL IVP ×2 (08:54→17:17)
[2021-11-21] MEDS: Sucralfate 1 GM TAB PO ×4 (08:54→21:26)
[2021-11-21] MEDS: Potassium Chloride 20 MEQ TABCR PO (08:54)
[2021-11-21] MEDS: Magnesium Chloride 64 MG TABCR PO ×2 (08:54→21:26)
[2021-11-21] MEDS: Metoprolol CR 50 MG TABCR PO (08:55)
[2021-11-21] MEDS: Pantoprazole 40 MG TABCR PO ×2 (08:55→21:26)
[2021-11-21] MEDS: Apixaban 5 MG TAB PO (08:55)
[2021-11-21] MEDS: Amiodarone 200 MG TAB PO (08:55)
[2021-11-21] MEDS: IRON SUCROSE COMPLEX 300 MG in Normal Saline 250 ML 167 MG IVPB (08:56)
[2021-11-21] MEDS: Allopurinol 100 MG TAB PO (08:56)
--- NOTE | 2021-11-21 14:44 | INITIAL_ITS ---
- If Service Date Differs Date of service: 11/21/21 Time of Service: 14:45 Care Management Initial Assess REASON FOR HOSPITALIZATION:: Acute CHF Exacerbation PAST MEDICAL HISTORY/PAST SURGICAL HISTORY:: Medical History . Diverticulosis. Essential hypertension (08/13/13). Former smoker (08/16/14). 5 pack yr history. GI bleed. had melena transiently in 02/2021; unable to be evaluated due to AV stenosis. Gout. intermittent, diet based. Hyperlipidemia. Hypothyroidism (12/06/14). [facility] current use of antiarrhythmic medical therapy (08/21/13). Osteoarthritis. Peptic ulcer disease with hemorrhage. hx x 3. Restless legs (01/18/13). sleep study. low iron (not anemic). SVT (supraventricular tachycardia). a. generally converts with Amiodarone. Surgical History . History of esophagogastroduodenoscopy (EGD) (~05/2018). 07/10/18. History of open sigmoidectomy. S/P aortic valve replacement (~04/22/21). Complicated by extravasation of contrast on iliofemoral angiography. 2 covered stents placed in the artery EIA extending into the R OFFICE LEAD. S/P colonoscopy (~07/10/18). Status post abdominal hysterectomy. Status post appendectomy. Status post total bilateral knee replacement PREVIOUS FUNCTIONAL STATUS/SOCIAL/FAMILY SUPPORTS:: Maliha lives in [facility] with her Marcell. She is independent at baseline, drives and does not have any community services or use any assistive devices at this time. Maliha reports ongoing SOB for monthes, new heart valve 8 months ago. CURRENT FUNCTIONAL STATUS:: Maliha was referred directly from Cardiology appointment with Dr. Becerra. Maliha is currently on 2L O2; not on O2 at home. ADVANCE DIRECTIVES:: On File, MITZY Iqbal Has patient been provided with info about the portal/API?: Yes Did the patient sign up for the portal?: No CODE STATUS:: Full Code INSURANCE COVERAGE / FINANCIAL ISSUES:: NICOLE Roblero CURRENT HOME/COMMUNITY SERVICES/EQUIPMENT:: Home CPAP PRIMARY CARE PHYSICIAN:: Kimberly Nicole POTENTIAL DISCHARGE NEEDS:: ECHO on Tuesday. PATIENT/FAMILY EDUCATION NEEDS:: Review discharge instructions, discuss Ask Me Three. ANTICIPATED BARRIERS TO DISCHARGE:: Further work-up; ECHO unavailable until Tuesday. TRANSPORTATION:: Dependent on disposition. PLAN:: Maliha continues to be closely monitored and treated. Per MD, awaiting ECHO on Tuesday. CM continues to follow.
--- NOTE | 2021-11-21 15:50 | W.PM.PROGNOT ---
Date of Service Date of service: 11/21/21 Time of Service: 15:50 Assessment and Plan Assessment and plan (1) Status post transcatheter aortic valve replacement (TAVR) using bioprosthesis: Status: Acute Assessment and plan: Apr 2021 (2) CHF (congestive heart failure): Status: Chronic Assessment and plan: Increasing fluid retention and shortness of air; particularly BETTS. Doesn't use supplemental O2 at home; now on 2L CXR indicates pulmonary edema. Lasix 40mg IV BID; after first dose she has diuresed well. Added oral K. Low Na diet. Echocardiogram on Tuesday. Qualifiers: Heart failure type: right-sided Heart failure chronicity: acute on chronic Qualified Code(s): I50.813 - Acute on chronic right heart failure (3) Atrial fibrillation: Status: Acute Assessment and plan: Now in sinus rhythm. Cont metoprolol but hold her apixiban due to her worsening anemia and recent melana looking stools (although of note her stool in the ER was negative for occult blood). Telemetry monitoring. Qualifiers: Atrial fibrillation type: longstanding persistent Qualified Code(s): I48.11 - Longstanding persistent atrial fibrillation (4) CKD (chronic kidney disease): Status: Chronic Assessment and plan: Since Jul 2021 her creatinine has varies between 1.5 and 2.4; currently 2.3 Monitor closely while diuresing with IV lasix. Qualifiers: Chronic kidney disease stage: unspecified stage Qualified Code(s): N18.9 - Chronic kidney disease, unspecified (5) Anemia: Status: Chronic Assessment and plan: Patient has noted recent black looking stools at home. No overt hematochezia. Howevver her iron levels are low consistent with a chronic iron deficiency anemia.Repeat hemoglobin 7.2 g and hematocrit 27.3%. Certainly this is contributing to her congestive heart failure. I have ordered parenteral iron supplementation however if her blood count drops further she will require transfusion. Patient remains on apixaban for atrial fibrillation however in light of her ongoing anemia I am going to put her apixaban on hold. Continue GI protection with Protonix but I switched it to oral and put her on some Carafate as well. Patient needs to have upper endoscopy performed but she indicated to me that when she was diagnosed with peptic ulcer disease couple years ago that our surgery and anesthesia department would not perform this because of her valvular heart disease. (6) GI bleed: Assessment and plan: See above. Prior history of peptic ulcer disease and in spite of the fact of her history of PUD and requiring long-term anticoagulation with apixaban she was not on any GI protection at home. I advised the patient that she should have a follow-up EGD once her heart failure is controlled. If her blood count drops further she will require transfusion Subjective Subjective Interval history since last seen: Patient is less dyspneic this morning. She is not requiring any oxygen while awake. She does wear CPAP at night for LAI. She denies any current chest pain but has noted in addition to her exertional dyspnea she has had some chest discomfort. Patient is status post TAVR in fall 2020. Despite this she has had progressive dyspnea to the point she cannot even go up 1 flight of stairs without being out of breath. She has had increasing bilateral leg edema has had 5 pound weight gain over the last 3 weeks rising to 235 pounds. Since admission yesterday she diuresed 1900 mL yesterday and was down and net -1660 mL yesterday. Since midnight last night she has diuresed another 1675 mL. Her weight went down from 106.4 kg down to 103.4 kg. Exam Narrative Exam Narrative: Obese white female sitting up in her chair in no acute respiratory distress. Neck is supple difficult to discern JVD Lungs with some faint bibasilar rales no rhonchi or wheezes Heart is regular with a loud S2 no audible AI murmur Abdomen is obese soft and nontender no guarding or rebound tenderness Lower extremities with 1+ pitting pretibial and ankle edema. Objective Last Vital Signs Temp 36.2 C L 11/21/21 15:00 Pulse 55 L 11/21/21 15:00 Resp 16 11/21/21 15:00 BP 158/52 H 11/21/21 15:00 Pulse Ox 92 11/21/21 15:00 Laboratory Results - last 24 hr 11/20/21 11/20/21 11/21/21 13:15 Unknown 06:10 WBC RBC Hgb Hct MCV MCH MCHC RDW Plt Count MPV Immature Gran % Neutrophils % Lymphocytes % Monocytes % Eosinophils % Basophils % Nucleated RBC % Absolute Neutrophils Absolute Lymphocytes Absolute Monocytes Absolute Eosinophils Absolute Basophils RBC Morphology Hypochromasia Anisocytosis Microcytosis Macrocytosis Sodium 137 Potassium 3.5 Chloride 98 Carbon Dioxide 28.3 Anion Gap 10.7 BUN 74 H Creatinine 2.3 H Estimated GFR/1.73 m2 20.67 Glucose 117 H Calcium 9.3 Magnesium 2.5 H Iron 11 L TIBC 534 H Transferrin % Sat 2 L Add-On Test Request DONE 11/21/21 06:10 WBC 8.14 RBC 3.28 L Hgb 7.2 L Hct 27.3 L MCV 83.2 MCH 22.0 L MCHC 26.4 L RDW 19.9 H Plt Count 477 H MPV 8.8 Immature Gran % 0.5 Neutrophils % 66.4 Lymphocytes % 16.8 Monocytes % 10.4 Eosinophils % 5.3 Basophils % 0.6 Nucleated RBC % 0.0 Absolute Neutrophils 5.40 Absolute Lymphocytes 1.37 Absolute Monocytes 0.85 H Absolute Eosinophils 0.43 Absolute Basophils 0.05 RBC Morphology See Below Hypochromasia 1+ Anisocytosis 1+ Microcytosis 1+ Macrocytosis 1+ Sodium Potassium Chloride Carbon Dioxide Anion Gap BUN Creatinine Estimated GFR/1.73 m2 Glucose Calcium Magnesium Iron TIBC Transferrin % Sat Add-On Test Request Point of Care Ultrasound Note: [id number] ultrasound heart was performed obtaining views and parasternal long axis parasternal short axis apical four-chamber view and subcostal views. Overall systolic function appears to be preserved however she has significant LVH. There is mitral valvular calcification. Aortic valve appears to be narrowed with no appreciable regurgitation. Review of the IVC shows it to be plethoric over 2 cm in diameter and less than 50% respiratory variation.
[2021-11-21] MEDS: Simvastatin 10 MG TAB PO (21:26)
[2021-11-22 03:38] VITALS: BP 132/74; PULSE 60; RESP 18; TEMP 36.6; O2SAT 92
[2021-11-22] MEDS: Levothyroxine 25 MCG TAB PO (05:48)
[2021-11-22 06:44] LABS: Abs Immature Grans 0.03 10^3/uL (0.0-0.06); Absolute Basophil Count 0.07 10^3/uL (0.0-0.2); Absolute Lymphocyte Count 1.57 10^3/uL (1.2-3.4); Absolute Monocyte Count 0.78 10^3/uL (0.1-0.8); Basophils % 0.9; Eosinophils % 5.3; HCT 28.3 % (36.0-46.0); HGB 7.6 g/dL (11.2-15.7); Immature Grans % 0.4; Lymphocytes % 20.8; MCHC 26.9 % (32.0-36.0); MCV 81.8 fL (80-95); MPV 9.1 fL (8.0-11.0); Monocytes % 10.3; Neutrophils % 62.3; Nucleated RBC 0.5 % (0.0-0.3); Platelet Count 500 10^3/uL (130-400); RBC 3.46 10^6/uL (3.93-5.22); RDW 19.9 % (11.7-14.6); RDW-SD 58.9 fL; WBC 7.55 10^3/uL (4.4-10.8)
[2021-11-22 06:55] LABS: Anion Gap 12.3 mmol/L (3-11); BUN 68 mg/dL (7-18); CO2 28.7 mmol/L (21.0-32.0); CREATININE 2.2 mg/dL (0.55-1.02); Calcium 9.5 mg/dL (8.5-10.1); Chloride 100 mmol/L (98-107); Estimated GFR 21.76 (mL/min/1.73m2); Glucose 104 mg/dL (74-106); Potassium 3.4 mmol/L (3.5-5.1); Sodium 141 mmol/L (136-145)
[2021-11-22 07:00] VITALS: PULSE 56
[2021-11-22 07:11] LABS: Anisocytosis 1+; Diff Comment Agrees w/ Instrument; Hypochromasia 1+
[2021-11-22 07:12] LABS: Microcytosis 1+; Ovalocytes 2+; Poikilocytes 1+
[2021-11-22 07:25] VITALS: BP 121/63; PULSE 57; RESP 20; TEMP 36; O2SAT 92
[2021-11-22] MEDS: Pantoprazole 40 MG TABCR PO ×2 (07:34→21:12)
[2021-11-22] MEDS: Sucralfate 1 GM TAB PO ×4 (07:34→21:12)
[2021-11-22] MEDS: Normal Saline Flush 10 ML SYR IVP (08:33)
[2021-11-22] MEDS: Potassium Chloride 20 MEQ TABCR PO ×3 (08:34→21:11)
[2021-11-22] MEDS: Furosemide 40 MG/4 ML VIAL IVP ×2 (08:34→15:52)
[2021-11-22] MEDS: Allopurinol 100 MG TAB PO (08:34)
[2021-11-22] MEDS: Magnesium Chloride 64 MG TABCR PO ×2 (08:35→21:11)
[2021-11-22] MEDS: Amiodarone 200 MG TAB PO (08:35)
[2021-11-22] MEDS: IRON SUCROSE COMPLEX 300 MG in Normal Saline 250 ML 167 MG IVPB (09:29)
--- NOTE | 2021-11-22 14:29 | W.PM.PROGNOT ---
Date of Service Date of service: 11/22/21 Time of Service: 14:29 Assessment and Plan Assessment and plan (1) Status post transcatheter aortic valve replacement (TAVR) using bioprosthesis: Status: Acute Assessment and plan: Apr 2021 (2) CHF (congestive heart failure): Status: Chronic Assessment and plan: Continue IV furosemide through this evening and switch to oral torsemide in the morning.Continue Jardiance along with metoprolol XL and metolazone twice a week. 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 We will get an echo tomorrow morning. Qualifiers: Heart failure type: right-sided Heart failure chronicity: acute on chronic Qualified Code(s): I50.813 - Acute on chronic right heart failure (3) Atrial fibrillation: Status: Acute Assessment and plan: Now in sinus rhythm. Cont metoprolol but hold her apixiban due to her worsening anemia and recent melana looking stools (although of note her stool in the ER was negative for occult blood). Telemetry monitoring. Qualifiers: Atrial fibrillation type: longstanding persistent Qualified Code(s): I48.11 - Longstanding persistent atrial fibrillation (4) CKD (chronic kidney disease): Status: Chronic Assessment and plan: Since Jul 2021 her creatinine has varies between 1.5 and 2.4; currently 2.2 stable Monitor closely while diuresing with IV lasix. Qualifiers: Chronic kidney disease stage: unspecified stage Qualified Code(s): N18.9 - Chronic kidney disease, unspecified (5) Anemia: Status: Chronic Assessment and plan: Patient has noted recent black looking stools at home. No overt hematochezia. Howevver her iron levels are low consistent with a chronic iron deficiency anemia.Repeat hemoglobin 7.2 g and hematocrit 27.3%. Certainly this is contributing to her congestive heart failure. I have ordered parenteral iron supplementation however if her blood count drops further she will require transfusion. Patient remains on apixaban for atrial fibrillation however in light of her ongoing anemia I am going to put her apixaban on hold. Continue GI protection with Protonix but I switched it to oral and put her on some Carafate as well. Patient needs to have upper endoscopy performed but she indicated to me that when she was diagnosed with peptic ulcer disease couple years ago that our surgery and anesthesia department would not perform this because of her valvular heart disease. (6) GI bleed: Assessment and plan: See above. Prior history of peptic ulcer disease and in spite of the fact of her history of PUD and requiring long-term anticoagulation with apixaban she was not on any GI protection at home. I advised the patient that she should have a follow-up EGD once her heart failure is controlled. If her blood count drops further she will require transfusion Subjective Subjective Interval history since last seen: Patient is feeling markedly better she is less dyspneic. There is been decrease in her leg edema. Her intake and output has been negative fluid balance for the last 2 days. She has been negative by 1600 to 1700 mL/day. She is already net -1300 mL today. Her weight is down to 103 kg which is a 5-1/2 kg decrease since admission. Patient is looking forward to going home. Explained to her we will go switch over to oral diuretics and get an echocardiogram in the morning and then she can be discharged home to follow-up with cardiology as an outpatient. Exam Narrative Exam Narrative: Elderly female sitting up in her chair alert and oriented person place time circumstance not requiring any supplemental oxygen. Chest is clear anteriorly posterior there is some faint crackles at the bases no rhonchi or wheezing Heart is regular at a controlled rate Abdomen soft nondistended obese. Legs still with some edema but they are down to trace to at most 1+ edema of the feet and ankles. She now has defined ankles Objective Last Vital Signs Temp 36.0 C L 11/22/21 07:25 Pulse 57 L 11/22/21 07:25 Resp 20 11/22/21 07:25 BP 121/63 11/22/21 07:25 Pulse Ox 92 11/22/21 07:25 Laboratory Results - last 24 hr 11/21/21 11/21/21 11/22/21 17:20 19:32 06:00 WBC RBC Hgb Hct MCV MCH MCHC RDW Plt Count MPV Immature Gran % Neutrophils % Lymphocytes % Monocytes % Eosinophils % Basophils % Nucleated RBC % Absolute Neutrophils Absolute Lymphocytes Absolute Monocytes Absolute Eosinophils Absolute Basophils RBC Morphology Hypochromasia Poikilocytosis Anisocytosis Microcytosis Ovalocytes Sodium 141 Potassium 3.4 L Chloride 100 Carbon Dioxide 28.7 Anion Gap 12.3 H BUN 68 H Creatinine 2.2 H Estimated GFR/1.73 m2 21.76 Glucose 104 Calcium 9.5 Troponin I Cancelled Patient ABO/Rh A Negative Antibody Screen POSITIVE Antibody Identification Anti-Fya Crossmatch See Detail 11/22/21 06:00 WBC 7.55 RBC 3.46 L Hgb 7.6 L Hct 28.3 L MCV 81.8 MCH 22.0 L MCHC 26.9 L RDW 19.9 H Plt Count 500 H MPV 9.1 Immature Gran % 0.4 Neutrophils % 62.3 Lymphocytes % 20.8 Monocytes % 10.3 Eosinophils % 5.3 Basophils % 0.9 Nucleated RBC % 0.5 H Absolute Neutrophils 4.70 Absolute Lymphocytes 1.57 Absolute Monocytes 0.78 Absolute Eosinophils 0.40 Absolute Basophils 0.07 RBC Morphology See Below Hypochromasia 1+ Poikilocytosis 1+ Anisocytosis 1+ Microcytosis 1+ Ovalocytes 2+ Sodium Potassium Chloride Carbon Dioxide Anion Gap BUN Creatinine Estimated GFR/1.73 m2 Glucose Calcium Troponin I Patient ABO/Rh Antibody Screen Antibody Identification Crossmatch
[2021-11-22 15:02] VITALS: BP 121/46; PULSE 62; RESP 19; TEMP 36.1; O2SAT 92
[2021-11-22] MEDS: Acetaminophen 325 MG TAB PO (18:24)
[2021-11-22] MEDS: Simvastatin 10 MG TAB PO (21:12)
[2021-11-22 21:19] VITALS: BP 133/72; PULSE 70; RESP 12; TEMP 36.7; O2SAT 90
[2021-11-23 05:58] VITALS: BP 150/70; PULSE 88; RESP 18; TEMP 36.2; O2SAT 95
[2021-11-23] MEDS: Levothyroxine 25 MCG TAB PO (06:03)
[2021-11-23 07:12] LABS: Anion Gap 10.4 mmol/L (3-11); BUN 62 mg/dL (7-18); CO2 28.6 mmol/L (21.0-32.0); CREATININE 2.2 mg/dL (0.55-1.02); Calcium 9.6 mg/dL (8.5-10.1); Chloride 99 mmol/L (98-107); Estimated GFR 21.76 (mL/min/1.73m2); Glucose 111 mg/dL (74-106); NT-proBNP 797 pg/mL (<300); Potassium 3.4 mmol/L (3.5-5.1); Sodium 138 mmol/L (136-145)
[2021-11-23 07:17] VITALS: PULSE 60
--- NOTE | 2021-11-23 08:00 | DI.US_ITS ---
APPROVED REPORT EXAM: Comprehensive 2D, Doppler, and color-flow Echocardiogram Patient Location: In-Patient Room/Bed: [facility] Subsystems Engineer: Ema Bhardwaj RDCS (AE) Indications: CHF, s/p TAVR Other Information Study Quality: Adequate. Technically limited study due to body habitus. Conclusion Normal left ventricular chamber size. Moderate concentric left ventricular hypertrophy. Estimated e jection fraction is 60%. There are no segmental wall motion abnormalities Normal right ventricular chamber size and systolic function Both atria are moderately dilated. There is a small left to right shunt mid atrial septum There is a bioprosthetic aortic valve replacement. Peak gradient is 49, mean 28 mmHg. There is no a ortic regurgitation Heavily calcified mitral annulus and mitral leaflets. There is moderate mitral regurgitation, modera te mitral stenosis Normal tricuspid valve with mild regurgitation. Estimated right ventricular systolic pressure is 45 mmHg Wall motion Left Ventricle The left ventricle is normal size. The left ventricular systolic function is normal. The left ventric ular ejection fraction is within the normal range. Moderate concentric left ventricular hypertrophy. There is normal LV segmental wall motion. There is no ventricular septal defect visualized. LVEF is 6 0%. Right Ventricle The right ventricle is normal size. The right ventricular systolic function is normal. The RVSP is 45 .1 mmHg. Atria Left atrium is moderately dilated. Right atrium is moderately dilated. Doppler : left to right intera trial shunt. Aortic Valve Peak aortic valve gradient is 49.3mmHg. Highest mean aortic valve gradient is 28.0mmHg. Calculated AV A by the continuity equation is 1.43cm2. No aortic regurgitation is present. Bioprosthetic TAVR aorti c valve is present. Mitral Valve Severe mitral annular calcification. Moderate mitral stenosis. Moderate mitral regurgitation. Tricuspid Valve The tricuspid valve is normal in structure. There is no tricuspid valve stenosis. Mild tricuspid regu rgitation. Pulmonic Valve The pulmonary valve is normal in structure. There is no pulmonic valvular stenosis. Mild pulmonic reg urgitation. Great Vessels The aortic root is normal in size. Ascending aorta is not well visualized. IVC is normal in size and collapses >50% with inspiration. Pericardium There is no pericardial effusion. 2D Dimensions IVSD d PLAX 1.30 cm F: 0.6-1.0 LV Vol A2C d MOD 148.8 mL LVPW d PLAX 1.31 cm F: 0.6 - 1.0 LV Vol A4C d MOD 131.7 mL LVID d PLAX 4.74 cm F: 3.8 - 5.2 LA vol/ BSA A2C s A-L 55.9 mL/m2 LVDs 3.20 cm F: 2.2 - 3.5 LA vol/ BSA A4C s A-L 45.1 mL/m2 Ao Root d 2.30 cm F: 2.7 - 3.3 LA Vol/ BSA Biplane s A-L 53.1 mL/m2 RA Area A4C 16.22 cm2 LA Area A4C s MOD 26.48 cm2 RA Vol/ BSA A4C s A-L 21.5 mL/m2 LA Area A2C s MOD 27.88 cm2 LV EF Teichholz 60.1 % LV EF A4C MOD 60.1 % LVEF (Carrero's) 61.34 % F: 54 - 74 LV EF A2C MOD 60.6 % LV Volume 109.46 mL F: 46 - 106 LV EF Biplane MOD 61.3 % LV Volume Index 4.69 mL/m2 F: 29 - 61 SV 88.71 mL LV Vol Biplane MOD 144.6 mL SV Index 45.59 mL/m2 FS 32.00 % M-Mode TAPSE 2.26 cm (M/F) >1.7 LV Diastology MV E' medial 0.057 (>0.07 m/s) MV E Vmax 1.68 (0.4-1.3 m/s) LV E/e MED 29.65 (<14) MV E' lateral 0.065 (>0.1 m/s) LV E/e LAT 26.05 (<14) MV E/E' medial 29.66 MV E/E' lateral 26.06 Aortic Valve LVOT Area 3.11 cm2 AoV Area Vmax 1.43 cm2 LVOT Vmax 1.62 m/s AoV Area/ BSA (Vmax) 0.74 cm2/m2 LVOT Mean Denny. 1.02 m/s RIA Mean Denny. 1.27 cm2 LVOT Peak Grad 10.5 mmHg RIA Mean Denny. Index 0.65 cm2/m2 LVOT Mean Grad 5.0 mmHg LVOT VTI 0.428 m LVOT Diam s 1.95 cm AoV Vmax 3.51 m/s Velocity Ratio 0.46 AoV Mean Denny. 2.50 m/s AoV Peak Grad 49.3 mmHg LVOT SV 132.92 mL AoV Mean Grad 28.0 mmHg AoV VTI 0.811 m AoV Area VTI 1.64 cm2 AoV Area/ BSA (VTI) 0.84 cm/m2 Mitral Valve MV DT 257 (160-240 msec) MR Vmax 5.08 m/s MV PHT 75 msec MR VTI 1.672 m MV Area PHT 2.95 cm2 MR Peak Grad 103.4 mmHg MV VTI 0.670 m MR Mean Grad 81.5 mmHg MV VTI Annulus 0.624 m MV Area VTI 1.86 (4.0-6.0 cm2) Pulmonary Valve PV Vmax 1.65 (0.5-1.5 m/s) RVOT Peak Gr. 4.79 mmHg PV Peak Grad 10.8 mmHg RVOT Mean Gr. 2.30 mmHg PV Mean Grad 5.0 mmHg RVOT VTI 0.264 m PV VTI 0.368 m RVOT Vmax 1.09 m/s Tricuspid Valve TR Peak Grad 42.0 mmHg TR Vmax 3.24 m/s RA Pressure 3.00 mmHg RVSP (TR) 45.1 mmHg
--- NOTE | 2021-11-23 08:39 | PDOC.CMPRO ---
- If Service Date Differs Date of service: 11/23/21 Time of Service: 08:39 Care Management Progress Note S/O:Maliha was sitting up in a chair when CM met with her. She was pleasant and engaged well with CM. She informed Cm that she was scheduled to have an Echocardiogram this morning and hoped to be able to go home if everything looked good. A: Maliha is a 76 year old woman admitted on with acute CHF exacerbation P:Maliha will likely be discharged home with no new services if her ECHO is within normal limits. She will follow up with cardiology and her PCP and plan of care and transport home with family. CM will continue to follow and support discharge needs.
[2021-11-23] MEDS: Magnesium Chloride 64 MG TABCR PO (08:49)
[2021-11-23] MEDS: Potassium Chloride 20 MEQ TABCR PO ×3 (08:49→15:48)
[2021-11-23] MEDS: Metoprolol CR 50 MG TABCR PO (08:50)
[2021-11-23] MEDS: Sucralfate 1 GM TAB PO ×3 (08:50→15:48)
[2021-11-23] MEDS: Amiodarone 200 MG TAB PO (08:50)
[2021-11-23] MEDS: Allopurinol 100 MG TAB PO (08:50)
[2021-11-23] MEDS: Empaglifozin 10 MG TAB PO (08:50)
[2021-11-23] MEDS: Pantoprazole 40 MG TABCR PO (08:50)
[2021-11-23] MEDS: IRON SUCROSE COMPLEX 300 MG in Normal Saline 250 ML 167 MG IVPB (08:57)
[2021-11-23] MEDS: Normal Saline Flush 10 ML SYR IVP (08:57)
--- NOTE | 2021-11-23 09:34 | W.INDIABCONS ---
Date of service: 11/23/21 Time of Service: 09:34 Diabetes Inpatient Consult Reason for Visit: dm DESCRIPTION/ASSESSMENT: 76 year old female admitted with DM2, CKD, CHF, morbid obesity. Following Diabetic, low sodium diet with excellent intake. BMI indicates class 3 obesity. Most recent A1C:6.4% (09/23/21) indicates well controlled diabetes. Home DM meds: 500 mg metformin BID. Started on Jardiance in house for DM and CHF. Not at nutritional risk at this time. PLAN: will continue to follow and support. Time Spent in Nutritional Counseling and Treatment: 0
[2021-11-23] MEDS: metOLazone 2.5 MG TAB 5 MG PO (10:10)
[2021-11-23] MEDS: Torsemide 20 MG TAB 40 MG PO (11:15)
--- NOTE | 2021-11-23 15:35 | DSE_ITS ---
Date of service: 11/23/21 Time of Service: 15:35 DS: Diagnosis Discharge Diagnosis (1) CHF (congestive heart failure): Status: Chronic Asessment and Plan: Patient was seen by her drug abuse resistance education officer in cardiology clinic and referred to the ED because of symptoms of 5 pound weight gain along with increasing shortness of breath on exertion as well as bilateral leg edema and orthopnea. Patient's dyspnea with exertion and gotten to the point where she could only walk a few feet before getting breathless. Portable chest x-ray on admission was consistent with congestive heart failure demonstrating cardiomegaly and pulmonary venous congestion and interstitial edema without focal consolidating infiltrate and no pleural effusions. ED provider performed a [id number] ultrasound of her lungs which demonstrated diffuse bilateral B-lines. Troponin I levels were checked and were normal at less than 50x2 sets. proBNP on admission was elevated at 2478. After receiving 3 days of diuretics her proBNP dropped to 797. Patient was treated with IV Lasix and then transitioned over to oral torsemide. She was placed on potassium supplementation and started on Jardiance 10 mg daily. I discussed with her possibly starting her on Entresto but recommended she follow-up with her drug abuse resistance education officer and discuss whether she should go on Entresto given her chronic renal failure. I explained to her that Entresto is indicated in both heart failure with preserved ejection fraction as well as heart failure with reduced ejection fraction but given that she already has elevated BUN and creatinine she will need close monitoring of her renal function with starting an KEELEY inhibitor or an ARB or medication like Entresto. An echocardiogram was performed during this admission and was accomplished on the day of discharge which I reviewed with the patient and gave her a copy of her echocardiogram. She has normal left ventricular chamber size with moderate concentric LVH with an ejection fraction of 60% with no wall motion abnormalities. Her right ventricular chamber size and function was normal. However she has biatrial enlargement and a small left to right mid atrial septal shunt. Her bioprosthetic aortic valve replacement showed no aortic regurgitation and the peak gradient is 49 with a mean of 28 mm. However her mitral annulus and mitral leaflets are heavily calcified and she has moderate mitral regurgitation and moderate mitral stenosis. I explained to her that I think that her mitral valve is a lot of the contributing cause for her congestive heart failure in addition to her LVH which is probably caused by years of aortic stenosis. I recommend that she follow-up Arnold with her local drug abuse resistance education officer Dr. Becerra but also with her butcher supervisor Dr. Bergeron at [facility]. She inquired whether there are less invasive ways of repairing or replacing the mitral valve and I showed her articles from [employer] regarding transcatheter mitral valve replacement. I recommend she discuss this with her butcher supervisor. (2) Mitral stenosis with regurgitation: Status: Chronic Asessment and Plan: Follow-up with interventional cardiology at [facility] to discuss her options. See above (3) Status post transcatheter aortic valve replacement (TAVR) using bioprosthesis: Status: Acute (4) Atrial fibrillation: Status: Chronic Asessment and Plan: Patient was monitored with telemetry monitoring throughout her hospital stay and she had no dysrhythmias. Rhythm remained sinus to sinus bradycardia with heart rates in the high 50s to low 70s. She has a first-degree AV block. She was maintained on her home dose of Toprol-XL 50 mg daily. She was continued on her home dose of amiodarone 200 mg daily. (5) CKD (chronic kidney disease): Status: Chronic Asessment and Plan: Patient presented with a BUN of 72 and a creatinine of 2.3. Serial BMPs were monitored while she was receiving diuretics. BUN and creatinine remained stable with a discharge level of 62 and 2.2 respectively. She did have some hypokalemia from diuretics and her potassium on discharge was 3.4 therefore she was sent home on oral supplementation. She is to have a follow-up BMP in a week. As part of her treatment of her congestive heart failure and renal failure in the setting of her diabetes mellitus her metformin was discontinued and replaced with Jardiance 10 mg daily. SGLT2 inhibitors have been found to improve or delay the progression of renal dysfunction and diabetes mellitus as well as improve both heart failure with preserved ejection fraction as well as heart failure with reduced ejection fraction. (6) Anemia: Status: Chronic Asessment and Plan: Patient has a prior history of peptic ulcer disease and has been maintained on apixaban chronically for her atrial fibrillation. When she presented to the hospital she was found to be anemic with a hemoglobin of 7.7 g within normal white count of 7300 and elevated platelet count of 504,000 and increased RDW of 20.1%. She had reported that she did have an intermittent black looking stools. She had not been on any H2 piotr or PPI for GI protection. Rectal exam performed by ED provider revealed soft brown stool in the rectal vault that was Hemoccult negative. She had a large soft bowel movement on 11/21/2021 which was Hemoccult negative. During this hospitalization she was empirically put on Protonix and Carafate for GI protection. It is recommended that the patient have a follow-up evaluation by GI or surgery to have an EGD. Iron studies were obtained during this hospitalization and she was found to be iron deficient with a serum iron level of 11 mcg/dL, low transferrin saturation of 2% and an elevated TIBC of 534 mcg/dL. During this hospitalization patient was given parenteral iron including iron sucrose 300 mg each dose she was given 3 doses over 3 days. Patient was discharged with a prescription for Protonix 40 mg daily and Carafate 1 g before meals and at bedtime. Discharge Plan Disposition Patient Disposition: HOME Condition: Improving Discharge Details Reason For Visit: Acute CHF Exacerbation Admit Date/Time: 11/20/21 11:03 Admit Provider: Mervin Monk Attending Provider: Mervin Monk Primary Care Provider: Kimberly Nicole Home Meds and New Rx's Prescriptions: New Jardiance 10 mg Tablet 10 mg PO QAM Qty: 30 1RF torsemide 20 mg Tablet 40 mg PO DAILY Qty: 30 0RF sucralfate 1 gram Tablet 1 g PO AC & HS Qty: 120 1RF potassium chloride 20 mEq Tablet,Er Particles/Crystals 20 meq PO BIDWMEAL Qty: 60 1RF pantoprazole 40 mg Tablet,Delayed Release (Dr/Ec) 40 mg PO DAILY Qty: 30 1RF Continued albuterol sulfate 90 mcg/actuation HFA aerosol inhaler 2 puff IH QID PRN0RF metoprolol succinate 100 mg tablet extended release 24 hr 50 mg PO DAILY 0RF metolazone 5 mg tablet 5 mg PO .COMPLEX Qty: 60 5RF Rx Instructions: 5 mg PO As directed; Take 1 pill Mondays and , 1 hour prior to Lasix amiodarone 400 mg tablet 200 mg PO DAILY 0RF levothyroxine 25 mcg tablet 25 mcg PO DAILY 0RF acetaminophen [Tylenol] 325 mg tablet 325 - 650 mg PO Q4H PRN PRN (Reason: pain) Qty: 30 0RF (DME) blood sugar diagnostic Strip See Dose Instructions .ROUTE .MEDSUPPLY Qty: 400 3RF Dose Instruction: As directed Rx Instructions: use tid and prn.Accu-Chek Smart View Test Strip simvastatin 10 mg tablet 10 mg PO QPM Qty: 90 3RF magnesium chloride 64 mg tablet,delayed release (DR/EC) 64 mg PO BID Qty: 180 3RF Eliquis 5 mg tablet 5 mg PO BID Qty: 60 11RF allopurinol 100 mg tablet 100 mg PO DAILY Qty: 90 1RF colchicine 0.6 mg tablet 0.6 mg PO DAILY PRN (Reason: gout) Qty: 20 3RF Discontinued metformin 500 mg tablet 500 mg PO BID Qty: 180 3RF furosemide [Lasix] 20 mg tablet 40 mg PO BID Qty: 180 2RF Discharge Instructions Stand Alone Forms: Nursing Discharge Form Referrals: RADIOLOGY,FA [OTHER] - 12/16/21 4:20 pm (Mammogram at [facility]) Matilde Becerra MD [ [facility] STAFF PHYSICIAN] - 12/24/21 11:20 am Kimberly Nicole MD [Primary Care Provider] - 11/27/21 11:00 am Activity:: Activity as Tolerated Equipment/Supplies:: No Equipment Needed Diet:: Low Sodium Discharge Orders Discharge Orders: Discharge Order (Routine); Ordered 11/23/21 Ordered By: Yan Caba Other Ambulatory Orders: Basic Metabolic Panel (Routine) Timeframe: 1 Week Facility: [facility] - Location: Laboratory Outpatient Ordered By: Yan Caba Complete Blood Count w/Diff (Routine) Timeframe: 1 Week Facility: [facility] - Location: Laboratory Outpatient Ordered By: Yan Caba Discharge Data Discharge Date/Time-TO BE ENTERED AT DEPARTURE: 11/23/21 15:56 DS: Summary Time Spent with Patient providing and/or coordinating discharge services: Greater than 30 minutes Specific discharge activities: Reviewing medications prescribed at discharge, discussion of her chronic valve disease Status at Discharge Functional status at discharge: independent ambulation Overall status at discharge: patient is progressing back to baseline Mental Status: mental status grossly normal Speech and Movement: speech and movement normal Mood: congruent mood Affect: normal affect Exam Narrative Exam Narrative: Elderly female sitting up in her chair alert and oriented person place time circumstance not requiring any supplemental oxygen. Chest is clear anteriorly posterior there is some faint crackles at the bases no rhonchi or wheezing Heart is regular at a controlled rate Abdomen soft nondistended obese. Legs still with some edema but they are down to trace to at most 1+ edema of the feet and ankles. She now has defined ankles Psych Mental Status: mental status grossly normal Speech and Movement: speech and movement normal Mood: congruent mood Affect: normal affect DS: Data Vitals/I&O Vitals and I&O: Vital Signs Temperature 36.2 C L 11/23/21 05:58 Temperature Source Tympanic 11/23/21 05:58 Pulse 60 11/23/21 07:17 Pulse Rhythm Regular 11/23/21 08:00 Pulse 66 11/20/21 13:10 Respiratory Rate 18 11/23/21 05:58 Respiratory Effort Non-Labored 11/23/21 08:00 Respiratory Depth Normal 11/23/21 08:00 Respiratory Pattern Normal 11/23/21 08:00 Blood Pressure 150/70 H 11/23/21 05:58 Blood Pressure Mean 62 11/20/21 12:16 Blood Pressure Position Supine 11/20/21 09:36 Pulse Oximetry 95 11/23/21 05:58 Oxygen Delivery Method Room Air 11/23/21 05:58 Oxygen Flow Rate 0 11/23/21 05:58 Fraction of Inspired Oxygen (FIO2) 21 11/23/21 00:55 Pain Level 0 11/23/21 05:58 Intake & Output 11/22/21 11/23/21 11/23/21 23:59 11:59 23:59 Intake Total 240 / 995 720 / 720 Output Total 1800 / 2950 1400 / 1400 Balance -1560 / -1955 -680 / -680 Intake: Oral 240 / 720 720 / 720 Output: Urine 1800 / 2950 1400 / 1400 Other: Urine Color Yellow Yellow Straw Urine Appearance Clear Cloudy Sediment Urine Odor Normal Comment patient denies pain or burning during urination. voided in toilet per Patient Voiding Methods Toilet Toilet Data Completed and Pending Labs on day of discharge: Labs from last 24 hours 11/23/21 11/21/21 06:37 17:20 Sodium 138 Potassium 3.4 L Chloride 99 Carbon Dioxide 28.6 Anion Gap 10.4 BUN 62 H Creatinine 2.2 H Estimated GFR/1.73 m2 21.76 Glucose 111 H Calcium 9.6 NT-Pro-B Natriuret Pep 797 H Crossmatch See Detail PFSH All Active Problems (Updated 11/24/21 @ 08:11 by Yan Caba) Mitral stenosis with regurgitation (Chronic) Anemia (Chronic) On amiodarone therapy (Acute) Diabetic neuropathy (Acute) Pre-ulcerative corn or callous (Acute) Bilateral bunions (Acute) Diabetes mellitus (Chronic 11/07/12) Oypej-et-xgtcstt kidney injury (Acute) Severe aortic stenosis (Acute) Status post transcatheter aortic valve replacement (TAVR) using bioprosthesis (Acute ~04/2021) Pulmonary hypertension (Acute) CHF (congestive heart failure) (Chronic) Obstructive sleep apnea syndrome (Acute 09/26/12) DX SEP [address] [facility]; wears CPAP machine. Colon polyp (Acute 07/10/18) 12/19 tubular adenoma Atrial fibrillation (Chronic 06/23/12) 02/19 start Tikosyn 06/21 and 11/20 recurrent 2013 ablation at [facility] echo 2012 at [facility], normal LVEF and valves 05/2021 RVR, s/p RODRIGUEZ CV and change to amiodarone. Asthma (Acute) Gastroesophageal reflux disease (Chronic) Obesity, morbid (Chronic) a. BMI of 52 CKD (chronic kidney disease) (Chronic) Medical History Diverticulosis Essential hypertension (08/13/13) Former smoker (08/16/14) 5 pack yr history GI bleed had melena transiently in 02/2021; unable to be evaluated due to AV stenosis. Gout intermittent, diet based. 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 generally converts with Amiodarone Surgical History History of esophagogastroduodenoscopy (EGD) (~05/2018) 12/03/18 History of open sigmoidectomy S/P aortic valve replacement (~04/22/21) Complicated by extravasation of contrast on iliofemoral angiography. 2 covered stents placed in the artery EIA extending into the R UNITIZER. S/P colonoscopy (~07/10/18) Status post abdominal hysterectomy Status post appendectomy Status post total bilateral knee replacement Family History Mother , 65 Thoracic aneurysm, ruptured Personal history of malignant neoplasm LYMPHOMA Father , 64 Heart disease Myocardial infarction Stroke Maternal Grandfather , 80 Heart disease Stroke Paternal Grandfather , 65 Heart disease Maternal Grandmother , 83 Heart disease Paternal Grandmother , 40 Cancer Son No problems noted. Son No problems noted. Social History Smoking/Tobacco Use Status: Former Tobacco Use Quit Date: 08/08/72 Tobacco: How many years used: 4 Smoking risk assessment performed?: Yes Alcohol Intake: never Drug use: Never Substance use type: does not use Caregiver/Support person: No Household members: spouse Housing: house Communication Needs: None current occupation: [employer] Pets and animals: Yes Pets and animals: dog(s) Sexually active: Yes Do you think of yourself as: straight/heterosexual Current gender identity: female What is your relationship status?: How often do you talk on the phone with friends or family?: three or more times per week How often do you get together with friends or relatives?: three or more times per week How often do you attend hinduism or caodaism services?: 4 or more times per year Do you belong to any clubs or organized social groups?: no Panel score (0-1 are the most socially isolated patients): 3 What type of physical activity do you participate in: walking Duration: < 15 minutes/day Frequency: 1-2 times per week Radha/Muslim: Christianity Special radha needs: No Seatbelt use: always Drive intox or ride w/intox 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
[2021-11-23 15:55] VITALS: PULSE 61
== END 2021-11-23 15:56 | disposition home or self-care (01) | DRG 292 ==
LOC: ER 11:43 → MS 12:31
PROVIDERS: Internal Medicine; Admitting Provider Family Medicine; Emergency Provider Emergency Medicine; PCP Family Medicine; Visit Provider Family Medicine
DX: I13.0 Hypertensive heart and chronic kidney disease with heart failure and stage 1 through stage 4 chronic kidney disease, or unspecified chronic kidney disease (principal); N17.9 Acute kidney failure, unspecified; Z68.42 Body mass index [BMI] 45.0-49.9, adult; I48.11 Longstanding persistent atrial fibrillation; Q21.1 Atrial septal defect; I50.813 Acute on chronic right heart failure; E11.40 Type 2 diabetes mellitus with diabetic neuropathy, unspecified; J45.20 Mild intermittent asthma, uncomplicated; N18.9 Chronic kidney disease, unspecified; I27.20 Pulmonary hypertension, unspecified; G47.33 Obstructive sleep apnea (adult) (pediatric); K21.9 Gastro-esophageal reflux disease without esophagitis; E66.01 Morbid (severe) obesity due to excess calories; M10.9 Gout, unspecified; E78.5 Hyperlipidemia, unspecified; E03.9 Hypothyroidism, unspecified; G25.81 Restless legs syndrome; Z95.5 Presence of coronary angioplasty implant and graft; Z79.01 Long term (current) use of anticoagulants; Z87.891 Personal history of nicotine dependence; Z79.899 Other long term (current) drug therapy; Z95.3 Presence of xenogenic heart valve; D50.9 Iron deficiency anemia, unspecified; I34.0 Nonrheumatic mitral (valve) insufficiency; Z87.11 Personal history of peptic ulcer disease; E87.6 Hypokalemia; E11.22 Type 2 diabetes mellitus with diabetic chronic kidney disease
CPT/HCPCS: 36415; 36416; 51702; 80048; 80053; 82962; 86850; 86900; 86901; 86920; 87635; 93005; 93306; 96374; 96375; 99285; 71045; 83540; 83550; 83735; 83880; 84484; 85025; 85610; 85730; 86870; 86902; 93010; 99223; 99232; 99239; J1756; J1940

== ENCOUNTER 2021-12-07 02:15 | Outpatient (CLI) | payer MEDICARE, SELFPAY ==
[2021-12-07 14:06] LABS: Abs Immature Grans 0.06 10^3/uL (0.0-0.06); Absolute Basophil Count 0.07 10^3/uL (0.0-0.2); Absolute Eosinophil Count 0.45 10^3/uL (0.0-0.7); Absolute Lymphocyte Count 1.53 10^3/uL (1.2-3.4); Absolute Monocyte Count 0.99 10^3/uL (0.1-0.8); Absolute Neutrophil Count 6.29 10^3/uL (1.2-6.7); Basophils % 0.7; Eosinophils % 4.8; HCT 37.1 % (36.0-46.0); HGB 10.2 g/dL (11.2-15.7); Immature Grans % 0.6; Lymphocytes % 16.3; MCH 24.3 pg (27.0-33.0); MCHC 27.5 % (32.0-36.0); MCV 89 fL (80-95); MPV 8.9 fL (8.0-11.0); Monocytes % 10.5; Neutrophils % 67.1; Platelet Count 483 10^3/uL (130-400); RBC 4.19 10^6/uL (3.93-5.22); RDW 24.8 % (11.7-14.6); WBC 9.39 10^3/uL (4.4-10.8)
[2021-12-07 14:24] LABS: Diff Comment RBC Morph Reviewed
[2021-12-07 14:25] LABS: Anisocytosis 2+; Hypochromasia 2+
[2021-12-07 15:33] LABS: Anion Gap 11.3 mmol/L (3-11); BUN 75 mg/dL (7-18); CO2 31.7 mmol/L (21.0-32.0); CREATININE 2.4 mg/dL (0.55-1.02); Calcium 9.1 mg/dL (8.5-10.1); Chloride 96 mmol/L (98-107); Estimated GFR 19.68 (mL/min/1.73m2); Glucose 288 mg/dL (74-106); Potassium 3.1 mmol/L (3.5-5.1); Sodium 139 mmol/L (136-145)
== END 2021-12-07 02:16 | disposition home or self-care (01) ==
LOC: LBO 02:15
PROVIDERS: PCP Family Medicine; Visit Provider Internal Medicine
DX: D64.9 Anemia, unspecified (principal); N18.9 Chronic kidney disease, unspecified; I50.9 Heart failure, unspecified
CPT/HCPCS: 36415; 80048; 85025

== ENCOUNTER 2021-12-13 10:13 | Observation (INO) | payer MEDICARE, SELFPAY ==
[2021-12-13] VITALS (24 sets, daily range): BP systolic 90–125; BP diastolic 44–76; PULSE 58–110; RESP 16–25; TEMP 36.3–37; O2SAT 89–97
--- NOTE | 2021-12-13 10:15 | RT.EKG_ITS ---
APPROVED REPORT Exam: Resting ECG Reason for Exam: cardiac hx, CHF Patient Location: E HR:106 bpm ECG Measurements Heart Rate 106 AXIS MT [id number] P [id number] QRSd 115 QRS -46 QT 400 T 67 QTc 533 Conclusion Atrial flutter with predominant 2:1 AV block...A-rate 205, multiple Ps Incomplete left bundle branch block...QRSd>110mS, terminal axis(-90,-1) Left ventricular hypertrophy...multiple LVH criteria Prolonged QT interval...QTc >500mS. Afib vs flutter? No STEMI.
--- NOTE | 2021-12-13 10:30 | DI.RAD_ITS ---
Exam(s) XR PORTABLE CHEST AP EXAM: XR PORTABLE CHEST AP CLINICAL HISTORY: palpitations TECHNIQUE: COMPARISON: CR XR PORTABLE CHEST AP from 11/20/2021 FINDINGS: The heart is mildly enlarged. There is apparent aortic stent graft. There are mild bilateral predom inantly lower lobe pulmonary interstitial infiltrates which may represent atelectasis, however early CHF not excluded. Follow-up with PA and lateral chest suggested. IMPRESSION: RADIATION DOSE DELIVERED: Total DLP
--- NOTE | 2021-12-13 11:00 | W.ED.GENAD ---
Discharge Plan Disposition Patient Disposition: [facility] INPATIENT Condition: Improving Discharge Details Clinical Impression: Atrial fibrillation, [id number] kidney injury, Acute UTI Admit Date/Time: 12/14/21 11:45 Admit Provider: Lori Yuan Attending Provider: Lori Yuan Primary Care Provider: Kimberly Nicole ED Provider: Alicia Maguire Discharge Data Discharge Date/Time-TO BE ENTERED AT DEPARTURE: 12/13/21 15:44 Medical Decision Making Patient is likely uroseptic with an elevated lactate and urinary tract infection and atrial flutter Initiated on ceftriaxone after confirming no anaphylactic history to penicillin and consulting with the pharmacist Received 750 cc bolus of saline, however caution is utilized regarding fluid resuscitation given history of CHF and pulmonary hypertension Blood pressure initially it was on the low end of normal and they are concerned regarding giving additional doses of IV antiarrhythmic, recheck of blood pressure so that this is improved after saline and so I did initiate a dose of 5 mg of metoprolol which patient tolerated well and blood pressure remained stable She did take her amiodarone Sterner milligrams and extended release metoprolol 100 mg in the morning I think she is stable for medical surgical telemetry admission at this time, blood pressure and vitals have normalized and patient is alert and oriented and resting comfortably in room She has a history of chronic kidney disease, her creatinine is consistent with this, her BUN is mildly elevated likely consistent with dehydration with a gap I think will need admission to the hospital for IV antibiotics, observation is recommended at this point COVID test negative will not supply sepsis bolus of IV fluid patient does have evidence of volume overload status and so we will use caution and not well for suspected particular reason lung, patient is not in septic shock 2, patient has history of CHF on diuretic Dr. Yuan, hospitalist agreeable to admitting CT scan of abdomen pelvis noncontrast discussed with Dr. Ricks he does not see evidence of obstructive uropathy Medical Records Medical records reviewed: Yes I reviewed the patient's medical records. Lab Data Lab results reviewed: Yes I reviewed the patient's lab results. HPI General Date/Time Provider Initiated Documentation: 12/13/21 10:25. HPI Narrative: This 76-year-old female with past medical history of mitral valve replacement with bovine valve, atrial fibrillation, diabetes, CHF, anemia, amiodarone therapy, chronic kidney disease presents with reports of nausea, vomiting, and diarrhea overnight. Reports 4-5 episodes. patient states today she felt lightheaded so checked her pulse and noted it was in the 130s which concerned her. She does have a history of atrial fibrillation per patient. Patient is relatively asymptomatic, she states she only feels slightly lightheaded. She denies any palpitations. She is anticoagulated and did take her Eliquis today. Denies any calf pain or swelling. Related Data Home Medications Medication Instructions Recorded Confirmed albuterol sulfate 90 mcg/actuation 2 puff IH QID PRN 04/17/18 12/13/21 aerosol inhaler acetaminophen 325 mg tablet 325 - 650 mg PO Q4H PRN PRN #30 tab 05/24/18 12/13/21 (Tylenol) blood sugar diagnostic #400 each NS 07/29/20 12/04/21 magnesium chloride 64 mg 64 mg PO BID #180 tab 04/07/21 12/13/21 (magnesium chloride) tablet,delayed release metoprolol succinate 100 mg 50 mg PO DAILY tab 04/29/21 12/13/21 tablet,extended release 24 hr amiodarone 400 mg tablet 200 mg PO DAILY tab 06/24/21 12/13/21 apixaban 5 mg tablet (Eliquis) 5 mg PO BID #60 tab 07/15/21 12/13/21 allopurinol 100 mg tablet 100 mg PO DAILY #90 tab 08/13/21 12/13/21 levothyroxine 25 mcg tablet 25 mcg PO DAILY tab 08/21/21 12/13/21 colchicine 0.6 mg tablet 0.6 mg PO DAILY PRN #20 tab 10/15/21 12/13/21 metolazone 5 mg tablet 5 mg PO .COMPLEX #60 tab 10/27/21 12/13/21 empagliflozin 10 mg tablet 10 mg PO QAM #30 tab 11/23/21 12/13/21 (Jardiance) pantoprazole 40 mg tablet,delayed 40 mg PO DAILY #30 tab 11/23/21 12/13/21 release potassium chloride 20 mEq 20 meq PO BIDWMEAL #60 tab 11/23/21 12/13/21 tablet,extended release(part/cryst) sucralfate 1 gram tablet 1 g PO AC & HS #120 tab 11/23/21 12/13/21 simvastatin 10 mg tablet 10 mg PO QPM #90 tab 11/27/21 12/13/21 torsemide 20 mg tablet 40 mg PO DAILY #60 tab 12/07/21 12/13/21 cefpodoxime 200 mg tablet 200 mg PO DAILY #5 tab 12/14/21 Previous Rx's Medication Instructions Recorded acetaminophen 325 mg tablet 325 - 650 mg PO Q4H PRN PRN #30 tab 05/24/18 (Tylenol) blood sugar diagnostic #400 each NS 07/29/20 magnesium chloride 64 mg 64 mg PO BID #180 tab 04/07/21 (magnesium chloride) tablet,delayed release apixaban 5 mg tablet (Eliquis) 5 mg PO BID #60 tab 07/15/21 allopurinol 100 mg tablet 100 mg PO DAILY #90 tab 08/13/21 colchicine 0.6 mg tablet 0.6 mg PO DAILY PRN #20 tab 10/15/21 metolazone 5 mg tablet 5 mg PO .COMPLEX #60 tab 10/27/21 empagliflozin 10 mg tablet 10 mg PO QAM #30 tab 11/23/21 (Jardiance) pantoprazole 40 mg tablet,delayed 40 mg PO DAILY #30 tab 11/23/21 release potassium chloride 20 mEq 20 meq PO BIDWMEAL #60 tab 11/23/21 tablet,extended release(part/cryst) sucralfate 1 gram tablet 1 g PO AC & HS #120 tab 11/23/21 simvastatin 10 mg tablet 10 mg PO QPM #90 tab 11/27/21 torsemide 20 mg tablet 40 mg PO DAILY #60 tab 12/07/21 cefpodoxime 200 mg tablet 200 mg PO DAILY #5 tab 12/14/21 Allergies Allergy/AdvReac Type Severity Reaction Status Date / Time aspirin Allergy Hives Verified 12/13/21 10:26 Penicillins Allergy Verified 12/13/21 10:26 tetracycline Allergy Verified 12/13/21 10:26 adhesive AdvReac Intermediate Topical Verified 12/13/21 10:26 Irritation General Stated Complaint: Palpitatns BROOKE: 3 Review of Systems All systems reviewed & are unremarkable except as noted in HPI and below PFSH All Active Problems (Updated 12/15/21 @ 00:05 by JAMILA HORN) Essential hypertension (Acute 08/13/13) Gout (Chronic) intermittent, diet based. Hyperlipidemia (Acute) Hypothyroidism (Chronic 12/06/14) Acute UTI (Acute) Mitral stenosis with regurgitation (Chronic) Obesity, morbid (Chronic) a. BMI of 52 Medical History Asthma Bilateral bunions Colon polyp (07/10/18) 12/19 tubular adenoma Diabetic neuropathy Diverticulosis Former smoker (08/16/14) 5 pack yr history GI bleed had melena transiently in 02/2021; unable to be evaluated due to AV stenosis. 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 (08/21/13) Malignant hypertensive heart and CKD (chronic kidney disease) stage IV On amiodarone therapy Osteoarthritis Peptic ulcer disease with hemorrhage hx x 3 Pre-ulcerative corn or callous Restless legs (01/18/13) sleep study low iron (not anemic) Severe aortic stenosis Surgical History History of esophagogastroduodenoscopy (EGD) (~05/2018) 07/10/18 History of open sigmoidectomy S/P colonoscopy (~07/10/18) Status post abdominal hysterectomy Status post appendectomy Status post total bilateral knee replacement Status post transcatheter aortic valve replacement (TAVR) using bioprosthesis (~04/2021) Complicated by extravasation of contrast on iliofemoral angiography. 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 Son No problems noted. 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 [employer] Pets and animals: Yes Pets and animals: dog(s) Sexually active: Yes Do you think of yourself as: straight/heterosexual Current gender identity: female What is your relationship status?: How often do you talk on the phone with friends or family?: three or more times per week How often do you get together with friends or relatives?: three or more times per week How often do you attend evangelical or judaism services?: 4 or more times per year Do you belong to any clubs or organized social groups?: no Panel score (0-1 are the most socially isolated patients): 3 What type of physical activity do you participate in: walking Duration: < 15 minutes/day Frequency: 1-2 times per week Radha/Faith: Congregational Special radha needs: No Seatbelt use: always Drive intox or ride w/intox six 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 Do you feel safe at home: Yes Do you feel safe in your relationship?: Yes Exam Const General: cooperative, comfortable and no acute distress Orientation: alert and oriented x3 Eyes Sclera: sclerae normal Resp Effort & Inspection: normal respiratory effort Auscultation: clear to auscultation bilaterally Cardio Rate: tachycardic Rhythm: abnormal rhythm GI Inspection: normal to inspection Skin General skin exam: no rashes or lesions noted Neuro General: patient alert and patient oriented x3 Extrem Other: distal pulses intact Course Vital Signs Vital signs: Vital Signs Temperature 37.0 C 12/13/21 10:18 Pulse 110 H 12/13/21 10:18 Respiratory Rate 12/13/21 10:18 Blood Pressure 120/68 12/13/21 10:18 Pulse Oximetry 97 12/13/21 10:18 Temperature 37.0 C 12/13/21 10:18 Temperature Source Temporal Artery Scan 12/13/21 10:18 Pulse 110 H 12/13/21 10:18 Respiratory Rate 12/13/21 10:18 Respiratory Effort 12/13/21 10:23 Blood Pressure 120/68 12/13/21 10:18 Blood Pressure Position Sitting 12/13/21 10:18 Pulse Oximetry 97 12/13/21 10:18 Oxygen Delivery Method Room Air 12/13/21 10:18 Oxygen Flow Rate 0 12/13/21 10:18 Pain Level 1 12/13/21 10:31 Critical Care Time Critical Care Time Critical Care Time: Yes Total Critical Care Time: 60 Attestation: For telemetry monitoring, IV metoprolol, IV antibiotic, admission to the hospital for IV antibiotics and rate control monitoring secondary to atrial fibrillation urinary tract infection with sepsis
[2021-12-13] MEDS: Lactated Ringers 500 ML IV (11:02)
[2021-12-13 11:08] LABS: Abs Immature Grans 0.05 10^3/uL (0.0-0.06); Absolute Basophil Count 0.06 10^3/uL (0.0-0.2); Absolute Eosinophil Count 0.09 10^3/uL (0.0-0.7); Absolute Lymphocyte Count 1.31 10^3/uL (1.2-3.4); Absolute Monocyte Count 0.59 10^3/uL (0.1-0.8); Absolute Neutrophil Count 8.39 10^3/uL (1.2-6.7); Basophils % 0.6; Eosinophils % 0.9; HCT 40.6 % (36.0-46.0); HGB 11.2 g/dL (11.2-15.7); Immature Grans % 0.5; Lymphocytes % 12.5; MCHC 27.6 % (32.0-36.0); MCV 87 fL (80-95); MPV 9.3 fL (8.0-11.0); Monocytes % 5.6; Neutrophils % 79.9; Platelet Count 522 10^3/uL (130-400); RBC 4.67 10^6/uL (3.93-5.22); RDW 25.1 % (11.7-14.6); RDW-SD 77.6 fL; WBC 10.49 10^3/uL (4.4-10.8)
[2021-12-13 11:09] LABS: Source Nasal/Nares
[2021-12-13 11:22] LABS: Diff Comment RBC Morph Reviewed
[2021-12-13 11:23] LABS: Anisocytosis 2+; Hypochromasia 2+; Microcytosis 1+
--- NOTE | 2021-12-13 11:33 | DI.VRAD_ITS ---
PROCEDURE INFORMATION: Exam: XR Chest Exam date and time: 12/13/2021 11:01 AM Age: 76 years old Clinical indication: Other: Palpitations TECHNIQUE: Imaging protocol: XR of the chest. Views: 1 view. COMPARISON: CR XR PORTABLE CHEST AP 11/20/2021 10:17 AM FINDINGS: Lungs: Low lung volumes. Mild patchy infrahilar opacities. Pleural spaces: No pleural effusion. No pneumothorax. Heart/Mediastinum: Cardiac valvular prosthesis. Heart size is within normal limits. Bones/joints: Degenerative changes of the shoulders and spine. No acute osseous findings. IMPRESSION: Low lung volumes with patchy infrahilar opacities that likely represent atelectasis. Dictated and Authenticated by: Laurie Richard MD. Ordering:GARY Vargas MD
[2021-12-13 11:34] LABS: ALT 42 U/L (14-59); AST 63 U/L (15-37); Alkaline Phosphatase 82 U/L (46-116); Anion Gap 15.9 mmol/L (3-11); Bilirubin, Total 0.3 mg/dL (0.2-1.0); CO2 31.1 mmol/L (21.0-32.0); CREATININE 2.5 mg/dL (0.55-1.02); Calcium 9.8 mg/dL (8.5-10.1); Chloride 91 mmol/L (98-107); Estimated GFR 18.78 (mL/min/1.73m2); Glucose 161 mg/dL (74-106); Magnesium 3.4 mg/dL (1.8-2.4); Potassium 3.3 mmol/L (3.5-5.1); Sodium 138 mmol/L (136-145); TSH (W/Ref FT4) 4.55 uIU/mL (0.36-3.74); Total Protein 9.6 g/dL (6.4-8.2)
[2021-12-13 11:36] LABS: Troponin I 69 ng/L (<or=60)
[2021-12-13 11:37] LABS: BUN 96 mg/dL (7-18)
[2021-12-13 11:50] LABS: COVID-19 PCR Negative (Negative)
[2021-12-13 11:53] LABS: FREE T4 0.94 ng/dL (0.76-1.46)
[2021-12-13 12:24] LABS: Bilirubin Negative (Negative); Blood Trace-intact (Negative); Clarity Sl Cloudy (Clear); Glucose Negative (Negative); Ketones Negative (Negative); Leukocyte Esterase Large (Negative); Nitrite Positive (Negative); Specific Gravity 1.015 (1.005-1.025); Urobilinogen 0.2 EU/dL (Up TO 0.2)
[2021-12-13 12:33] LABS: Bacteria Few HPF (Negative); C & S Indicated? Yes; Casts Negative LPF (Negative); Crystals Negative HPF (Negative); Epithelial Cells Few HPF (Negative); Mucus Negative (Negative); RBC 0-2 HPF (0-2); WBC >50 HPF (0-5)
[2021-12-13] MEDS: Metoprolol 5 MG/5 ML VIAL IVP (13:08)
[2021-12-13] MEDS: Normal Saline 500 ML 250 ML IV (13:08)
[2021-12-13 13:12] LABS: Lactate 3.1 mmol/L (0.6-1.4)
[2021-12-13] MEDS: cefTRIAXone 2 GM/50 ML BAG IVPB (13:12)
[2021-12-13 13:31] LABS: Troponin I 66 ng/L (<or=60)
--- NOTE | 2021-12-13 14:05 | DI.CT_ITS ---
Exam(s) CT ABDOMEN PELVIS WO EXAM: CT ABDOMEN PELVIS WO INDICATION: uti, pain. COMPARISON: CT ABD PELVIS WITH CONTRAST from 08/05/2012 TECHNIQUE: FINDINGS: CT examination of the abdomen and pelvis was performed without contrast administration. Images obtained through the lung bases are unremarkable. The liver is unremarkable in appearance. Gallbladder and bile ducts are CT normal. Pancreas appears normal. Spleen is unremarkable in appearance. Adrenals appear normal. The kidneys are unremarkable with no evidence of hydronephrosis, nephrolithiasis, or renal mass.. Ur inary bladder unremarkable. Abdominal aorta is of normal diameter and no major vascular abnormality is seen. No abdominal wall hernia. No abdominal or pelvic adenopathy. BACK TUFTER structures appear intact. Appendix is not specifically visualized but there is no evidence of appendicitis or diverticulitis.. No evidence of bowel obstruction. IMPRESSION: Negative CT examination of the abdomen and pelvis. RADIATION DOSE DELIVERED: 1,225.11mGy.cm Total DLP 1,225.11mGy.cm Total DLP !Error CTDIvol RADIATION OPTIMIZATION: All CT scans at this facility use at least one of these dose optimization te chniques: automated exposure control; mA and/or kV adjustment per patient size (includes targeted exa ms where dose is matched to clinical indication); or iterative reconstruction.
[2021-12-13] MEDS: POTASSIUM CHLORIDE 20 MEQ/100 ML BAG 50 MEQ IVPB ×2 (15:07→18:05)
--- NOTE | 2021-12-13 17:04 | W.PM.HP.N ---
Date of service: 12/13/21 Time of Service: 17:05 Assessment and Plan Assessment and plan (1) Atrial fibrillation: Start date: 12/13/21 Start time: 17:45 Status: Chronic Assessment and plan: Patient found to be in rapid afib in the 130's given a dose of IV lopressor along with amiodarone and she converted to NSR, admitted to m/[facility] Qualifiers: Atrial fibrillation type: longstanding persistent Qualified Code(s): I48.11 - Longstanding persistent atrial fibrillation (2) Acute UTI: Start date: 12/13/21 Start time: 17:45 Status: Acute Assessment and plan: Patient was found to have UTI with positive nitrates, blood and leuk est Initiated on ceftriaxone 2 gm, afebrile no leukocytosis. Awaiting urine culture with sensitivities and blood cultures (3) Euekx-sq-bmefstq kidney injury: Start date: 12/13/21 Start time: 17:45 Status: Acute Assessment and plan: BUN elevated at 96, creatinine of 2.5, hold all nephro toxic medications Qualifiers: Acute renal failure type: unspecified Chronic kidney disease stage: stage 3 (moderate) Chronic kidney disease stage 3 subtype: stage 3b (GFR 30-44) Qualified Code(s): N17.9 - Acute kidney failure, unspecified; N18.32 - Chronic kidney disease, stage 3b (4) Anemia: Start date: 12/13/21 Start time: 17:45 Status: Chronic Assessment and plan: chronic from anticoagulation d/t afib (5) Diabetes mellitus: Start date: 12/13/21 Start time: 17:45 Status: Chronic Assessment and plan: On SSI sensitive hold oral home med (6) Pulmonary hypertension: Start date: 12/13/21 Start time: 17:45 Status: Chronic Assessment and plan: uses cpap, daily wts Not requiring oxygen at this time. (7) CHF (congestive heart failure): Start date: 12/13/21 Start time: 17:45 Status: Chronic Assessment and plan: Patient not currently in CHF as above dailyt wts and diuretics Qualifiers: Heart failure chronicity: acute on chronic Heart failure type: right-sided Qualified Code(s): I50.813 - Acute on chronic right heart failure (8) Obstructive sleep apnea syndrome: Start date: 12/13/21 Start time: 17:45 Status: Acute Assessment and plan: cpap (9) Gastroesophageal reflux disease: Start date: 12/13/21 Start time: 17:45 Status: Chronic Assessment and plan: continue protonix (10) Discharge planning issues: Start date: 12/13/21 Start time: 17:45 Status: Acute Assessment and plan: Home when medically ready, with event recorder. discussed with Dr. Yuan History of Present Illness History of Present Illness Chief Complaint: UTI, AFIB Narrative: 76 y.o female presented to [facility] ED with c/o nausea, diarrhea, vomiting overnight, 4-5 episodes. PHM includes, mitral valve replacement with bovine valve, Afib, DM, CHF, anemia, CKD, Today she reported lightheadedness in the ED and her HR was elevated in the 130's. She was given a dose of 750 cc bolus saline, 5 mg dose of lopressor IVP. Labs in the ED included lactate of 3.1, potassium 3.3, chloride 91, anion gap 15.9, BUN 96, Creatinine of 2.5, mag 3.4. Urine positive for nitrates, blood and leuk est. She was initiated on ceftriaxone and asked to bed admitted to m/s with teley. On the floor k is being repleted, continue ceftriaxone. Cpap ordered, as she does not have hers. continue teley. IV lopressor for elevated HR. SSI for DM. monitor labs. Daily wt and i/o to monitor for CHF. Review of Systems All systems reviewed & are unremarkable except as noted in HPI and below PFSH All Active Problems (Updated 12/14/21 @ 09:39 by Amy Pinedo NP) Discharge planning issues (Acute) Essential hypertension (Acute 08/13/13) Gout (Chronic) intermittent, diet based. Hyperlipidemia (Acute) Hypothyroidism (Chronic 12/06/14) Acute UTI (Acute) Mitral stenosis with regurgitation (Chronic) Anemia (Chronic) Diabetes mellitus (Chronic 11/07/12) Ggdlx-ym-pthartr kidney injury (Acute) Pulmonary hypertension (Chronic) CHF (congestive heart failure) (Chronic) Obstructive sleep apnea syndrome (Acute 09/26/12) DX SEP 2012 AT [facility]; wears CPAP machine. Atrial fibrillation (Chronic 06/23/12) 02/19 start Tikosyn 06/21 and 11/20 recurrent 2013 ablation at [facility] echo 2012 at [facility], normal LVEF and valves 05/2021 RVR, s/p RODRIGUEZ CV and change to amiodarone. Gastroesophageal reflux disease (Chronic) Obesity, morbid (Chronic) a. BMI of 52 Medical History (Updated 12/14/21 @ 09:39 by Amy Pinedo NP) Asthma Bilateral bunions Colon polyp (07/10/18) 12/19 tubular adenoma Diabetic neuropathy Diverticulosis Former smoker (08/16/14) 5 pack yr history GI bleed had melena transiently in 02/2021; unable to be evaluated due to AV stenosis. 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 Son No problems noted. 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 Pets and animals: Yes Pets and animals: dog(s) Sexually active: Yes Do you think of yourself as: straight/heterosexual Current gender identity: female What is your relationship status?: How often do you talk on the phone with friends or family?: three or more times per week How often do you get together with friends or relatives?: three or more times per week How often do you attend bahai or uatsdin services?: 4 or more times per year Do you belong to any clubs or organized social groups?: no Panel score (0-1 are the most socially isolated patients): 3 What type of physical activity do you participate in: walking Duration: < 15 minutes/day Frequency: 1-2 times per week Radha/Mormonism: Nondenominational Special radha needs: No Seatbelt use: always Drive intox or ride w/intox stud driver: No Do you feel safe at home: Yes Do you feel safe in your relationship?: Yes Meds Allergies and Home Medications Allergies Allergy/AdvReac Type Severity Reaction Status Date / Time aspirin Allergy Hives Verified 12/13/21 10:26 Penicillins Allergy Verified 12/13/21 10:26 tetracycline Allergy Verified 12/13/21 10:26 adhesive AdvReac Intermediate Topical Verified 12/13/21 10:26 Irritation Home Medications Medication Instructions Recorded Confirmed Type albuterol sulfate 90 mcg/actuation 2 puff IH QID PRN 04/17/18 12/13/21 History aerosol inhaler acetaminophen 325 mg tablet 325 - 650 mg PO Q4H PRN PRN #30 tab 05/24/18 12/13/21 Rx (Tylenol) blood sugar diagnostic #400 each NS 07/29/20 12/04/21 Rx magnesium chloride 64 mg 64 mg PO BID #180 tab 04/07/21 12/13/21 Rx (magnesium chloride) tablet,delayed release metoprolol succinate 100 mg 50 mg PO DAILY tab 04/29/21 12/13/21 History tablet,extended release 24 hr amiodarone 400 mg tablet 200 mg PO DAILY tab 06/24/21 12/13/21 History apixaban 5 mg tablet (Eliquis) 5 mg PO BID #60 tab 07/15/21 12/13/21 Rx allopurinol 100 mg tablet 100 mg PO DAILY #90 tab 08/13/21 12/13/21 Rx levothyroxine 25 mcg tablet 25 mcg PO DAILY tab 08/21/21 12/13/21 History colchicine 0.6 mg tablet 0.6 mg PO DAILY PRN #20 tab 10/15/21 12/13/21 Rx metolazone 5 mg tablet 5 mg PO .COMPLEX #60 tab 10/27/21 12/13/21 Rx empagliflozin 10 mg tablet 10 mg PO QAM #30 tab 11/23/21 12/13/21 Rx (Jardiance) pantoprazole 40 mg tablet,delayed 40 mg PO DAILY #30 tab 11/23/21 12/13/21 Rx release potassium chloride 20 mEq 20 meq PO BIDWMEAL #60 tab 11/23/21 12/13/21 Rx tablet,extended release(part/cryst) sucralfate 1 gram tablet 1 g PO AC & HS #120 tab 11/23/21 12/13/21 Rx simvastatin 10 mg tablet 10 mg PO QPM #90 tab 11/27/21 12/13/21 Rx torsemide 20 mg tablet 40 mg PO DAILY #60 tab 12/07/21 12/13/21 Rx Exam Const General: cooperative, comfortable and no acute distress Nutritional Appearance: obese Orientation: alert, awake and oriented x3 Eyes Eyelids: eyelids normal Pupils: PERRL EOM: EOM intact bilaterally Neck Neck: normal visual inspection and no JVD Lymphatic: no lymphadenopathy noted Resp Effort & Inspection: normal respiratory effort Auscultation: clear to auscultation bilaterally Cardio Jugular venous pressure: no JVD Rhythm: regular rhythm Heart Sounds: S1 normal GI Auscultation: normal bowel sounds General: No CVA tenderness and deferred Skin General skin exam: no rashes or lesions noted Neuro General: patient alert, patient awake and patient oriented x3 Cognition: normal cognition Speech: speech normal Gait: normal gait Extrem General: normal to inspection, full ROM and no clubbing, cyanosis or edema Results Labs Result diagrams: 12/14/21 06:12 12/14/21 06:12 Labs: Laboratory Results - last 24 hr 12/13/21 12/13/21 12/13/21 10:29 10:29 10:41 WBC 10.49 RBC 4.67 Hgb 11.2 Hct 40.6 MCV 87 MCH 24.0 L MCHC 27.6 L RDW 25.1 H Plt Count 522 H MPV 9.3 Immature Gran % 0.5 Neutrophils % 79.9 Lymphocytes % 12.5 Monocytes % 5.6 Eosinophils % 0.9 Basophils % 0.6 Nucleated RBC % 0.0 Absolute Neutrophils 8.39 H Absolute Lymphocytes 1.31 Absolute Monocytes 0.59 Absolute Eosinophils 0.09 Absolute Basophils 0.06 RBC Morphology See Below Hypochromasia 2+ Anisocytosis 2+ Microcytosis 1+ VBG Lactate Sodium 138 Potassium 3.3 L Chloride 91 L Carbon Dioxide 31.1 Anion Gap 15.9 H BUN 96 H* Creatinine 2.5 H Estimated GFR/1.73 m2 18.78 Glucose 161 H Calcium 9.8 Magnesium 3.4 H Total Bilirubin 0.3 AST 63 H ALT 42 Alkaline Phosphatase 82 Troponin I 69 H* Total Protein 9.6 H Albumin 4.0 TSH 4.55 H Cancelled Free T4 0.94 Urine Color Urine Clarity Urine pH Ur Specific [place] Urine Protein Urine Ketones Urine Blood Urine Nitrite Urine Bilirubin Urine Urobilinogen Ur Leukocyte Esterase Urine RBC Urine WBC Ur Epithelial Cells Urine Crystals Urine Bacteria Urine Casts Urine Mucus Ur Culture Indicated? Urine Glucose COVID-19 Source SARS-CoV-2 (PCR) 12/13/21 12/13/21 12/13/21 10:55 12:09 13:06 WBC RBC Hgb Hct MCV MCH MCHC RDW Plt Count MPV Immature Gran % Neutrophils % Lymphocytes % Monocytes % Eosinophils % Basophils % Nucleated RBC % Absolute Neutrophils Absolute Lymphocytes Absolute Monocytes Absolute Eosinophils Absolute Basophils RBC Morphology Hypochromasia Anisocytosis Microcytosis VBG Lactate 3.1 H* Sodium Potassium Chloride Carbon Dioxide Anion Gap BUN Creatinine Estimated GFR/1.73 m2 Glucose Calcium Magnesium Total Bilirubin AST ALT Alkaline Phosphatase Troponin I Total Protein Albumin TSH Free T4 Urine Color Yellow Urine Clarity Sl Cloudy Urine pH 7.0 Ur Specific [place] 1.015 Urine Protein Negative Urine Ketones Negative Urine Blood Trace-intact H Urine Nitrite Positive H Urine Bilirubin Negative Urine Urobilinogen 0.2 Ur Leukocyte Esterase Large H Urine RBC 0-2 Urine WBC >50 H Ur Epithelial Cells Few Urine Crystals Negative Urine Bacteria Few Urine Casts Negative Urine Mucus Negative Ur Culture Indicated? Yes Urine Glucose Negative COVID-19 Source Nasal/Nares SARS-CoV-2 (PCR) Negative 12/13/21 13:06 WBC RBC Hgb Hct MCV MCH MCHC RDW Plt Count MPV Immature Gran % Neutrophils % Lymphocytes % Monocytes % Eosinophils % Basophils % Nucleated RBC % Absolute Neutrophils Absolute Lymphocytes Absolute Monocytes Absolute Eosinophils Absolute Basophils RBC Morphology Hypochromasia Anisocytosis Microcytosis VBG Lactate Sodium Potassium Chloride Carbon Dioxide Anion Gap BUN Creatinine Estimated GFR/1.73 m2 Glucose Calcium Magnesium Total Bilirubin AST ALT Alkaline Phosphatase Troponin I 66 H* Total Protein Albumin TSH Free T4 Urine Color Urine Clarity Urine pH Ur Specific [place] Urine Protein Urine Ketones Urine Blood Urine Nitrite Urine Bilirubin Urine Urobilinogen Ur Leukocyte Esterase Urine RBC Urine WBC Ur Epithelial Cells Urine Crystals Urine Bacteria Urine Casts Urine Mucus Ur Culture Indicated? Urine Glucose COVID-19 Source SARS-CoV-2 (PCR) Last Vital Signs Temp 36.4 C L 12/13/21 15:55 Pulse 105 H 12/13/21 15:55 Resp 18 12/13/21 15:55 BP 123/76 12/13/21 15:55 Pulse Ox 92 12/13/21 15:55
[2021-12-13] MEDS: Potassium Chloride 20 MEQ TABCR PO (18:05)
[2021-12-13] MEDS: Magnesium Chloride 64 MG TABCR PO (19:34)
[2021-12-13] MEDS: Apixaban 5 MG TAB PO (19:34)
[2021-12-13] MEDS: Simvastatin 10 MG TAB PO (19:35)
[2021-12-13] MEDS: Sucralfate 1 GM TAB PO (21:41)
[2021-12-13] MEDS: Zolpidem 5 MG TAB PO (21:41)
[2021-12-14] VITALS: PULSE 60
[2021-12-14 03:37] VITALS: BP 105/58; PULSE 68; RESP 16; TEMP 36.8; O2SAT 92
[2021-12-14] MEDS: Levothyroxine 25 MCG TAB PO (05:53)
[2021-12-14 07:19] VITALS: BP 127/67; PULSE 60; RESP 17; TEMP 36.1; O2SAT 92
[2021-12-14 07:34] LABS: Abs Immature Grans 0.06 10^3/uL (0.0-0.06); Absolute Basophil Count 0.07 10^3/uL (0.0-0.2); Absolute Eosinophil Count 0.59 10^3/uL (0.0-0.7); Absolute Lymphocyte Count 1.68 10^3/uL (1.2-3.4); Absolute Monocyte Count 0.97 10^3/uL (0.1-0.8); Basophils % 0.6; Eosinophils % 5.1; HCT 32.2 % (36.0-46.0); HGB 8.9 g/dL (11.2-15.7); Immature Grans % 0.5; Lymphocytes % 14.6; MCH 24.1 pg (27.0-33.0); MCHC 27.6 % (32.0-36.0); MCV 87 fL (80-95); MPV 9.2 fL (8.0-11.0); Monocytes % 8.4; Neutrophils % 70.8; Platelet Count 445 10^3/uL (130-400); RBC 3.69 10^6/uL (3.93-5.22); RDW 24.8 % (11.7-14.6); RDW-SD 78.2 fL; WBC 11.49 10^3/uL (4.4-10.8)
[2021-12-14 07:43] LABS: Absolute Neutrophil Count 8.13 10^3/uL (1.2-6.7)
[2021-12-14 07:47] LABS: Anisocytosis 2+; Diff Comment RBC Morph Reviewed; Hypochromasia 1+; Polychromasia Present
[2021-12-14 07:58] LABS: Lactate 1.6 mmol/L (0.6-1.4)
[2021-12-14 07:59] LABS: Anion Gap 10.4 mmol/L (3-11); CO2 29.6 mmol/L (21.0-32.0); CREATININE 2.2 mg/dL (0.55-1.02); Calcium 9.1 mg/dL (8.5-10.1); Chloride 98 mmol/L (98-107); Estimated GFR 21.76 (mL/min/1.73m2); Glucose 129 mg/dL (74-106); Magnesium 2.6 mg/dL (1.8-2.4); Sodium 138 mmol/L (136-145)
[2021-12-14 08:01] LABS: BUN 90 mg/dL (7-18)
--- NOTE | 2021-12-14 08:06 | PDOC.CMIN ---
- If Service Date Differs Date of service: 12/14/21 Time of Service: 08:06 Care Management Initial Assess REASON FOR HOSPITALIZATION:: Uti PAST MEDICAL HISTORY/PAST SURGICAL HISTORY:: All Active Problems (Updated 12/13/21 @ 17:42 by Amy Pinedo NP). Discharge planning issues (Acute). Essential hypertension (Acute 08/13/13). Gout (Chronic). intermittent, diet based. Hyperlipidemia (Acute). Hypothyroidism (Chronic 12/06/14). Acute UTI (Acute). Mitral stenosis with regurgitation (Chronic). Anemia (Chronic). Diabetes mellitus (Chronic 11/07/12). Tjibw-gw-bhzvmip kidney injury (Acute). Pulmonary hypertension (Acute). CHF (congestive heart failure) (Chronic). Obstructive sleep apnea syndrome (Acute 09/26/12). DX SEP 2012 AT [facility]; wears CPAP machine. Atrial fibrillation (Chronic 06/23/12). 02/19 start Tikosyn. 06/21 and 11/20 recurrent. 2012 ablation at [facility]. echo 2012 at [facility], normal LVEF and valves. 05/2021 RVR, s/p RODRIGUEZ CV and change to amiodarone. Gastroesophageal reflux disease (Chronic). Obesity, morbid (Chronic). a. BMI of 52. Medical History (Updated 12/13/21 @ 17:42 by Amy Pinedo NP). Asthma. Bilateral bunions. Colon polyp (07/10/18). 12/19 tubular adenoma. Diabetic neuropathy. Diverticulosis. Former smoker (08/16/14). 5 pack yr history. GI bleed. had melena transiently in 02/2021; unable to be evaluated due to AV stenosis. 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 tachycardia. retirement current use of antiarrhythmic medical therapy (08/21/13). Malignant hypertensive heart and CKD (chronic kidney disease) stage IV. On amiodarone therapy. Osteoarthritis. Peptic ulcer disease with hemorrhage. hx x 3. Pre-ulcerative corn or callous. Restless legs (01/18/13). sleep study. low iron (not anemic). Severe aortic stenosis. Surgical History . History of esophagogastroduodenoscopy (EGD) (~05/2018). 07/10/18. History of open sigmoidectomy. S/P colonoscopy (~07/10/18). Status post abdominal hysterectomy. Status post appendectomy. Status post total bilateral knee replacement. Status post transcatheter aortic valve replacement (TAVR) using bioprosthesis (~04/2021). Complicated by extravasation of contrast on iliofemoral angiography. 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 She is independent at baseline, drives and does not have any community services or use any assistive devices at this time. CURRENT FUNCTIONAL STATUS:: Maliha was sitting up on the side of her bed. She stated that she was feeling well and anticipates being discharged today. Maliha denied the need for any new services, commenting I have a wonderful ! Has patient been provided with info about the portal/API?: Yes Did the patient sign up for the portal?: Yes (previously) CODE STATUS:: DNR/DNI INSURANCE COVERAGE / FINANCIAL ISSUES:: [employer] Medicare Advantage CURRENT HOME/COMMUNITY SERVICES/EQUIPMENT:: none PRIMARY CARE PHYSICIAN:: Kimberly Nicole POTENTIAL DISCHARGE NEEDS:: Follow up with PCP and plan of care PATIENT/FAMILY EDUCATION NEEDS:: Review of discharge instructions, limitations, follow up plan, medications, discuss Ask Me Three TRANSPORTATION:: via private vehicle PLAN:: Maliha will likely be discharged home with no new services. She will follow up with cardiology, her PCP and plan of care and transport with family.CM will continue to support Maliha and assess for discharge needs.
[2021-12-14] MEDS: Apixaban 5 MG TAB PO (08:20)
[2021-12-14] MEDS: Potassium Chloride 20 MEQ TABCR PO (08:20)
[2021-12-14] MEDS: Insulin Aspart 300 UNITS/3 ML PEN SC ×2 (08:20→12:00)
[2021-12-14] MEDS: Metoprolol CR 50 MG TABCR PO (08:20)
[2021-12-14] MEDS: Allopurinol 100 MG TAB PO (08:20)
[2021-12-14] MEDS: Amiodarone 200 MG TAB PO (08:20)
[2021-12-14] MEDS: Pantoprazole 40 MG TABCR PO (08:20)
[2021-12-14] MEDS: Sucralfate 1 GM TAB PO ×2 (08:20→12:00)
[2021-12-14 08:51] VITALS: PULSE 61
[2021-12-14] MEDS: Potassium Chloride 20 MEQ TABCR 40 MEQ PO (10:07)
--- NOTE | 2021-12-14 10:12 | W.INDIABCONS ---
Date of service: 12/14/21 Time of Service: 10:12 Diabetes Inpatient Consult Reason for Visit: dm DESCRIPTION/ASSESSMENT: 76 year old female admitted with A fib, UTI, CKD with hx of DM2 and BMI > 40. Most recent A1C: 6.4% (09/23/21) indicates well controlled DM with current home DM meds (10 mg Jardiance). FOllowing low sodium diet with adquate intake. Not considered at nutritional risk. INTERVENTION: continue diabetic low sodium diet PLAN: will monitor po intake, labs and weight Time Spent in Nutritional Counseling and Treatment: 0
[2021-12-14 10:57] VITALS: BP 120/70; PULSE 62; RESP 17; TEMP 35.9; O2SAT 94
--- NOTE | 2021-12-14 11:44 | DSE_ITS ---
Date of service: 12/14/21 Time of Service: 11:52 DS: Diagnosis Discharge Diagnosis (1) Atrial fibrillation: Start date: 12/14/21 Start time: 11:52 Status: Chronic Asessment and Plan: NSR rate controlled, will d/c on cardiac event recorder. Follow up with cardiology in 1-2 weeks. Wt self daily sitck to 0870-0841 ml fluid restriction low na diet (2) Acute UTI: Start date: 12/14/21 Start time: 11:54 Status: Acute Asessment and Plan: Growing e.coli in UTI no sensitivities at this time On ceftrianxone day 2. Will transition to cefpodoxime 200 mg daily based creatinine clearance and bmi. repeat outpatient labs in 3 days f/u with PCP in 1-2 weeks. (3) Tyfze-ak-uadnuhm kidney injury: Start date: 12/14/21 Start time: 11:57 Status: Acute Asessment and Plan: Patient bun is 90 t0day. She appears to run high. 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 (5) Diabetes mellitus: Start date: 12/14/21 Start time: 11:59 Status: Chronic Asessment and Plan: resume home medications (6) Pulmonary hypertension: Start date: 12/14/21 Start time: 12:00 Status: Chronic Asessment and Plan: as above contiue cpapa (7) CHF (congestive heart failure): Start date: 12/13/21 Start time: 12:00 Status: Chronic Asessment and Plan: daily wt, diuretics, low sodium diet, fluid restrictions (8) Obstructive sleep apnea syndrome: Start date: 12/14/21 Start time: 12:01 Status: Acute Asessment and Plan: continue cpap (9) Gastroesophageal reflux disease: Start date: 12/14/21 Start time: 12:01 Status: Chronic Asessment and Plan: continue protoix discussed with Dr Yuan Discharge Plan Discharge Details Reason For Visit: Rapid Afib/flutter, UTI Admit Date/Time: 12/14/21 11:45 Admit Provider: Lori Yuan Attending Provider: Lori Yuan Primary Care Provider: Kimberly Nicole Hospital Course Hospital Course: 76 y.o female admitted to [facility] ED after c/o nausea, diarrhea, vomiting overnight, with 4-5 episodes. PHM includes, mitral valve replacement with bovine valve, Afib, DM, CHF, anemia, CKD, On admission she reported lightheadedness in the ED and her HR was elevated in the 130's. She was given a dose of 750 cc bolus saline, 5 mg dose of lopressor IVP. she converted to NSR after anya. Labs in the ED included lactate of 3.1, potassium 3.3, chloride 91, anion gap 15.9, BUN 96, Creatinine of 2.5, mag 3.4. Urine positive for nitrates, blood and leuk est. She was initiated on ceftriaxone and asked to bed admitted to m/s with judy. Today she is feeling well. No chest pain trops trending down. lactate 1.6,potassium repleted with oral supplementation. She is being switched to oral cefpdoxime for her UTI sensitives not ready yet. Slight leukocytosis today will have her repeat labs in 3 days. She is being dischaged on a 30 day even recorder. She denies CP SOB. Home Meds and New Rx's Prescriptions: New cefpodoxime 200 mg tablet 200 mg PO DAILY Qty: 5 0RF Rx Instructions: must administer with a meal/food Continued albuterol sulfate 90 mcg/actuation HFA aerosol inhaler 2 puff IH QID PRN0RF metoprolol succinate 100 mg tablet extended release 24 hr 50 mg PO DAILY 0RF metolazone 5 mg tablet 5 mg PO .COMPLEX Qty: 60 5RF Rx Instructions: 5 mg PO As directed; Take 1 pill Mondays and , 1 hour prior to Lasix amiodarone 400 mg tablet 200 mg PO DAILY 0RF levothyroxine 25 mcg tablet 25 mcg PO DAILY 0RF acetaminophen [Tylenol] 325 mg tablet 325 - 650 mg PO Q4H PRN PRN (Reason: pain) Qty: 30 0RF magnesium chloride 64 mg tablet,delayed release (DR/EC) 64 mg PO BID Qty: 180 3RF Eliquis 5 mg tablet 5 mg PO BID Qty: 60 11RF allopurinol 100 mg tablet 100 mg PO DAILY Qty: 90 1RF colchicine 0.6 mg tablet 0.6 mg PO DAILY PRN (Reason: gout) Qty: 20 3RF simvastatin 10 mg tablet 10 mg PO QPM Qty: 90 3RF torsemide 20 mg tablet 40 mg PO DAILY Qty: 60 1RF Jardiance 10 mg Tablet 10 mg PO QAM Qty: 30 1RF sucralfate 1 gram Tablet 1 g PO AC & HS Qty: 120 1RF potassium chloride 20 mEq Tablet,Er Particles/Crystals 20 meq PO BIDWMEAL Qty: 60 1RF pantoprazole 40 mg Tablet,Delayed Release (Dr/Ec) 40 mg PO DAILY Qty: 30 1RF No Action (DME) blood sugar diagnostic Strip See Dose Instructions .ROUTE .MEDSUPPLY Qty: 400 3RF Dose Instruction: As directed Rx Instructions: use tid and prn.Accu-Chek Smart View Test Strip Discharge Instructions Instructions: A-fib (Atrial Fibrillation) (DC), Urinary Tract Infection in Older Adults (DC) Additional Instructions: weigh yourself daily if you have a wt gain greater than 2-3 lb in one day call your PCP. 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 Follow up with your primary in 1-2 weeks stick to a low sodium diet, and 4393-7476 ml fluid restrictions Stand Alone Forms: Nursing Discharge Form Diet:: as above Discharge Orders Other Ambulatory Orders: Cardiac Event Recorder (Routine) Timeframe: 1 Month Facility: [facility] - Location: Respiratory Therapy Ordered By: Amy Pinedo Complete Blood Count w/Diff (Routine) Timeframe: 3 Days Location: None Selected Ordered By: Amy Pinedo DS: Summary Time Spent with Patient providing and/or coordinating discharge services: Greater than 30 minutes Status at Discharge Functional status at discharge: independent ambulation Overall status at discharge: patient is back to baseline Mental Status: mental status grossly normal Speech and Movement: speech and movement normal Mood: congruent mood Affect: normal affect Exam Const General: cooperative, comfortable and no acute distress Nutritional Appearance: obese Orientation: alert, awake and oriented x3 Eyes Eyelids: eyelids normal Pupils: PERRL EOM: EOM intact bilaterally Neck Neck: normal visual inspection and no JVD Lymphatic: no lymphadenopathy noted Resp Effort & Inspection: normal respiratory effort Auscultation: clear to auscultation bilaterally Cardio Jugular venous pressure: no JVD Rhythm: regular rhythm Heart Sounds: S1 normal GI Auscultation: normal bowel sounds General: No CVA tenderness and deferred Skin General skin exam: no rashes or lesions noted Neuro General: patient alert, patient awake and patient oriented x3 Cognition: normal cognition Speech: speech normal Gait: normal gait Extrem General: normal to inspection, full ROM and no clubbing, cyanosis or edema Psych Mental Status: mental status grossly normal Speech and Movement: speech and movement normal Mood: congruent mood Affect: normal affect DS: Data Vitals/I&O Vitals and I&O: Vital Signs Temperature 35.9 C L 12/14/21 10:57 Temperature Source Tympanic 12/14/21 10:57 Pulse 62 12/14/21 10:57 Pulse Rhythm Regular 12/14/21 08:20 Pulse 97 H 12/13/21 15:10 Respiratory Rate 17 12/14/21 10:57 Respiratory Effort Non-Labored 12/14/21 08:20 Respiratory Depth Normal 12/14/21 08:20 Respiratory Pattern Normal 12/14/21 08:20 Blood Pressure 120/70 12/14/21 10:57 Blood Pressure Mean 80 12/13/21 15:00 Blood Pressure Position Sitting 12/13/21 10:18 Pulse Oximetry 94 12/14/21 10:57 Oxygen Delivery Method Room Air 12/14/21 10:57 Oxygen Flow Rate 0 12/14/21 10:57 Fraction of Inspired Oxygen (FIO2) 21 12/13/21 18:13 Pain Level 0 12/14/21 10:57 Comment 12/14/21 03:37 Intake & Output 12/13/21 12/13/21 12/14/21 11:59 23:59 11:59 Intake Total 1740 / 1740 350 / 350 Output Total 1300 / 1300 1600 / 1600 Balance 440 / 440 -1250 / -1250 Weight 100.698 kg 101.7 kg 102.3 kg Intake: IV 1160 / 1160 Oral 580 / 580 350 / 350 Output: Urine 1300 / 1300 1600 / 1600 Other: Urine Color Yellow Yellow Urine Appearance Cloudy Clear Urine Odor None Normal Comment RN aware Voiding Methods Toilet Toilet Data Completed and Pending Completed studies during hospitalization [Text1]: FINDINGS: The heart is mildly enlarged.? There is apparent aortic stent graft.? There are mild bilateral predominantly lower lobe pulmonary interstitial infiltrates which may represent atelectasis, however early CHF not excluded.? Follow-up with PA and lateral chest suggested. IMPRESSION: FINDINGS: Lungs: Low lung volumes. Mild patchy infrahilar opacities. Pleural spaces: No pleural effusion. No pneumothorax. Heart/Mediastinum: Cardiac valvular prosthesis. Heart size is within normal limits. Bones/joints: Degenerative changes of the shoulders and spine. No acute osseous findings. IMPRESSION: Low lung volumes with patchy infrahilar opacities that likely represent atelectasis. CT examination of the abdomen and pelvis was performed without contrast administration. Images obtained through the lung bases are unremarkable. The liver is unremarkable in appearance. Gallbladder and bile ducts are CT normal. Pancreas appears normal. Spleen is unremarkable in appearance. Adrenals appear normal.? The kidneys are unremarkable with no evidence of hydronephrosis, nephrolithiasis, or renal mass..? Urinary bladder unremarkable. Abdominal aorta is of normal diameter and no major vascular abnormality is seen. No abdominal wall hernia. No abdominal or pelvic adenopathy. 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 Appendix is not specifically visualized but there is no evidence of appendicitis or diverticulitis..? No evidence of bowel obstruction. IMPRESSION: Negative CT examination of the abdomen and pelvis. Labs on day of discharge: Labs from last 24 hours 12/14/21 12/14/21 12/14/21 07:53 06:12 06:12 WBC 11.49 H RBC 3.69 L Hgb 8.9 L D Hct 32.2 L MCV 87 MCH 24.1 L MCHC 27.6 L RDW 24.8 H Plt Count 445 H MPV 9.2 Immature Gran % 0.5 Neutrophils % 70.8 Lymphocytes % 14.6 Monocytes % 8.4 Eosinophils % 5.1 Basophils % 0.6 Nucleated RBC % 0.0 Absolute Neutrophils 8.13 H Absolute Lymphocytes 1.68 Absolute Monocytes 0.97 H Absolute Eosinophils 0.59 Absolute Basophils 0.07 RBC Morphology See Below Polychromasia Present Hypochromasia 1+ Anisocytosis 2+ VBG Lactate 1.6 H Sodium 138 Potassium 3.0 L Chloride 98 Carbon Dioxide 29.6 Anion Gap 10.4 BUN 90 H* Creatinine 2.2 H Estimated GFR/1.73 m2 21.76 Glucose 129 H Calcium 9.1 Magnesium 2.6 H Troponin I Free T4 Urine Color Urine Clarity Urine pH Ur Specific Novi Urine Protein Urine Ketones Urine Blood Urine Nitrite Urine Bilirubin Urine Urobilinogen Ur Leukocyte Esterase Urine RBC Urine WBC Ur Epithelial Cells Urine Crystals Urine Bacteria Urine Casts Urine Mucus Ur Culture Indicated? Urine Glucose SARS-CoV-2 (PCR) 12/13/21 12/13/21 12/13/21 13:06 13:06 12:09 WBC RBC Hgb Hct MCV MCH MCHC RDW Plt Count MPV Immature Gran % Neutrophils % Lymphocytes % Monocytes % Eosinophils % Basophils % Nucleated RBC % Absolute Neutrophils Absolute Lymphocytes Absolute Monocytes Absolute Eosinophils Absolute Basophils RBC Morphology Polychromasia Hypochromasia Anisocytosis VBG Lactate 3.1 H* Sodium Potassium Chloride Carbon Dioxide Anion Gap BUN Creatinine Estimated GFR/1.73 m2 Glucose Calcium Magnesium Troponin I 66 H* Free T4 Urine Color Yellow Urine Clarity Sl Cloudy Urine pH 7.0 Ur Specific Novi 1.015 Urine Protein Negative Urine Ketones Negative Urine Blood Trace-intact H Urine Nitrite Positive H Urine Bilirubin Negative Urine Urobilinogen 0.2 Ur Leukocyte Esterase Large H Urine RBC 0-2 Urine WBC >50 H Ur Epithelial Cells Few Urine Crystals Negative Urine Bacteria Few Urine Casts Negative Urine Mucus Negative Ur Culture Indicated? Yes Urine Glucose Negative SARS-CoV-2 (PCR) 12/13/21 12/13/21 10:55 10:29 WBC RBC Hgb Hct MCV MCH MCHC RDW Plt Count MPV Immature Gran % Neutrophils % Lymphocytes % Monocytes % Eosinophils % Basophils % Nucleated RBC % Absolute Neutrophils Absolute Lymphocytes Absolute Monocytes Absolute Eosinophils Absolute Basophils RBC Morphology Polychromasia Hypochromasia Anisocytosis VBG Lactate Sodium Potassium Chloride Carbon Dioxide Anion Gap BUN Creatinine Estimated GFR/1.73 m2 Glucose Calcium Magnesium Troponin I Free T4 0.94 Urine Color Urine Clarity Urine pH Ur Specific Novi Urine Protein Urine Ketones Urine Blood Urine Nitrite Urine Bilirubin Urine Urobilinogen Ur Leukocyte Esterase Urine RBC Urine WBC Ur Epithelial Cells Urine Crystals Urine Bacteria Urine Casts Urine Mucus Ur Culture Indicated? Urine Glucose SARS-CoV-2 (PCR) Negative 12/13/21 13:53 Blood Blood Culture - Pending 12/13/21 13:42 Blood Blood Culture - Pending Preliminary micro results at discharge 12/13/21 12:09 Urine Culture - Preliminary Urine - Reflex from Ua Escherichia coli 12/13/21 13:53 Blood Culture - Pending Blood 12/13/21 13:42 Blood Culture - Pending Blood PFSH All Active Problems Discharge planning issues (Acute) Essential hypertension (Acute 08/13/13) Gout (Chronic) intermittent, diet based. Hyperlipidemia (Acute) Hypothyroidism (Chronic 12/06/14) Acute UTI (Acute) Mitral stenosis with regurgitation (Chronic) Anemia (Chronic) Diabetes mellitus (Chronic 11/07/12) Twavn-ye-ustzlrc kidney injury (Acute) Pulmonary hypertension (Chronic) CHF (congestive heart failure) (Chronic) Obstructive sleep apnea syndrome (Acute 09/26/12) DX SEP 2012 AT [facility]; wears CPAP machine. Atrial fibrillation (Chronic 06/23/12) 02/19 start Tikosyn 06/21 and 11/20 recurrent 2012 ablation at [facility] [place] echo 2012 at [facility] [place], normal LVEF and valves 05/2021 RVR, s/p RODRIGUEZ CV and change to amiodarone. Gastroesophageal reflux disease (Chronic) Obesity, morbid (Chronic) a. BMI of 52 Medical History Asthma Bilateral bunions Colon polyp (07/10/18) 12/19 tubular adenoma Diabetic neuropathy Diverticulosis Former smoker (08/16/14) 5 pack yr history GI bleed had melena transiently in 02/2021; unable to be evaluated due to AV stenosis. 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 (08/21/13) Malignant hypertensive heart and CKD (chronic kidney disease) stage IV On amiodarone therapy Osteoarthritis Peptic ulcer disease with hemorrhage hx x 3 Pre-ulcerative corn or callous Restless legs (01/18/13) sleep study low iron (not anemic) Severe aortic stenosis Surgical History History of esophagogastroduodenoscopy (EGD) (~05/2018) 07/10/18 History of open sigmoidectomy S/P colonoscopy (~07/10/18) Status post abdominal hysterectomy Status post appendectomy Status post total bilateral knee replacement Status post transcatheter aortic valve replacement (TAVR) using bioprosthesis (~04/2021) Complicated by extravasation of contrast on iliofemoral angiography. 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 Son No problems noted. Social History Smoking/Tobacco Use Status: Former Tobacco Use Quit Date: 08/08/72 Tobacco: How many years used: 4 Smoking risk assessment performed?: Yes Alcohol Intake: never Drug use: Never Substance use type: does not use Caregiver/Support person: No Household members: spouse Housing: house Communication Needs: None current occupation: [employer] Pets and animals: Yes Pets and animals: dog(s) Sexually active: Yes Do you think of yourself as: straight/heterosexual Current gender identity: female What is your relationship status?: How often do you talk on the phone with friends or family?: three or more times per week How often do you get together with friends or relatives?: three or more times per week How often do you attend mandaen or quaker services?: 4 or more times per year Do you belong to any clubs or organized social groups?: no Panel score (0-1 are the most socially isolated patients): 3 What type of physical activity do you participate in: walking Duration: < 15 minutes/day Frequency: 1-2 times per week Radha/Mandaen: Bahai Special radha needs: No Seatbelt use: always Drive intox or ride w/intox armor reconnaissance vehicle driver: No Do you feel safe at home: Yes Do you feel safe in your relationship?: Yes
[2021-12-14] MEDS: Normal Saline Flush 10 ML SYR IVP (12:00)
[2021-12-14] MEDS: cefTRIAXone 2 GM/50 ML BAG IVPB (12:00)
== END 2021-12-14 13:45 | disposition home or self-care (01) ==
LOC: ER 15:11 → MS 12-14 11:31
PROVIDERS: Admitting Provider Internal Medicine; Emergency Provider Physician Assistant; PCP Family Medicine; Visit Provider Internal Medicine
DX: N39.0 Urinary tract infection, site not specified (principal); I48.11 Longstanding persistent atrial fibrillation; E11.22 Type 2 diabetes mellitus with diabetic chronic kidney disease; N17.9 Acute kidney failure, unspecified; N18.4 Chronic kidney disease, stage 4 (severe); I13.0 Hypertensive heart and chronic kidney disease with heart failure and stage 1 through stage 4 chronic kidney disease, or unspecified chronic kidney disease; I48.92 Unspecified atrial flutter; I44.7 Left bundle-branch block, unspecified; I50.813 Acute on chronic right heart failure; Z95.3 Presence of xenogenic heart valve; Z79.899 Other long term (current) drug therapy; R11.2 Nausea with vomiting, unspecified; R19.7 Diarrhea, unspecified; Z79.01 Long term (current) use of anticoagulants; Z79.84 Long term (current) use of oral hypoglycemic drugs; E78.5 Hyperlipidemia, unspecified; E03.9 Hypothyroidism, unspecified; E66.01 Morbid (severe) obesity due to excess calories; Z68.42 Body mass index [BMI] 45.0-49.9, adult; E11.40 Type 2 diabetes mellitus with diabetic neuropathy, unspecified; Z87.891 Personal history of nicotine dependence; J45.909 Unspecified asthma, uncomplicated; K57.30 Diverticulosis of large intestine without perforation or abscess without bleeding; G25.81 Restless legs syndrome; I35.0 Nonrheumatic aortic (valve) stenosis; D64.89 Other specified anemias; I27.20 Pulmonary hypertension, unspecified; K21.9 Gastro-esophageal reflux disease without esophagitis; G47.33 Obstructive sleep apnea (adult) (pediatric); B96.20 Unspecified Escherichia coli [E. coli] as the cause of diseases classified elsewhere; Z20.822 Contact with and (suspected) exposure to COVID-19
CPT/HCPCS: 36410; 36415; 36416; 80048; 80053; 82962; 87040; 87077; 87635; 93005; 96361; 96365; 96366; 96367; 96372; 96375; 99291; 71045; 74176; 81003; 81015; 83605; 83735; 84439; 84443; 84484; 85025; 87086; 87186; 93010; 99217; 99220; 99223; G0378; J3480

== ENCOUNTER 2021-12-16 00:39 | Outpatient (CLI) | payer MEDICARE, SELFPAY ==
--- NOTE | 2021-12-16 16:29 | DI.MAMMO_ITS ---
Exam(s) MAMMO SCREENING EXAM: MAMMO SCREENING CLINICAL HISTORY: screening,Z12.39 TECHNIQUE: Mammograms were interpreted according to the usual protocol including computer analysis w Over 40 Females CAD system, tomosynthesis and C-view imaging. COMPARISON: 2011 through 2016 FINDINGS: The breasts are composed of scattered fibroglandular densities, Breast Density category B. No suspicious masses or suspicious microcalcifications are seen. The vessels are heavily calcified. No skin thickening or abnormal axillary lymph nodes are seen. There has been no significant change from prior exams. IMPRESSION: BI-RADS Category 1, Negative mammogram Yearly screening mammography is recommended. Breast Density - Category B, scattered fibroglandular densities. A negative radiographic report should not delay biopsy if a dominant or clinically suspicious mass is present. Up to ten percent of cancers are not identified on mammography. A negative report may reinforce clinical impression. Adenosis and dense breasts may obscure an underlying neoplasm. False positive reports average 6 to 10%. Patient will receive a letter notifying them of these results.
== END 2021-12-16 00:59 ==
PROVIDERS: PCP Family Medicine; Visit Provider Family Medicine
DX: Z12.31 Encounter for screening mammogram for malignant neoplasm of breast (principal)
CPT/HCPCS: 77063; 77067

== ENCOUNTER 2021-12-22 02:24 | Outpatient (CLI) | payer MEDICARE, SELFPAY ==
[2021-12-22 12:44] LABS: Abs Immature Grans 0.05 10^3/uL (0.0-0.06); Absolute Basophil Count 0.07 10^3/uL (0.0-0.2); Absolute Eosinophil Count 0.54 10^3/uL (0.0-0.7); Absolute Lymphocyte Count 1.76 10^3/uL (1.2-3.4); Absolute Neutrophil Count 5.81 10^3/uL (1.2-6.7); Basophils % 0.8; Eosinophils % 5.9; HCT 34.7 % (36.0-46.0); HGB 9.8 g/dL (11.2-15.7); Immature Grans % 0.5; Lymphocytes % 19.3; MCHC 28.2 % (32.0-36.0); MCV 85 fL (80-95); Monocytes % 9.9; Neutrophils % 63.6; Platelet Count 535 10^3/uL (130-400); RBC 4.09 10^6/uL (3.93-5.22); RDW-SD 69.9 fL; WBC 9.13 10^3/uL (4.4-10.8)
[2021-12-22 13:02] LABS: Hemoglobin A1C 6.3 % (<5.7)
[2021-12-22 13:08] LABS: Anion Gap 10.6 mmol/L (3-11); CO2 32.4 mmol/L (21.0-32.0); CREATININE 3.1 mg/dL (0.55-1.02); Calcium 9.4 mg/dL (8.5-10.1); Chloride 95 mmol/L (98-107); Estimated GFR 14.65 (mL/min/1.73m2); Glucose 137 mg/dL (74-106); Potassium 3.7 mmol/L (3.5-5.1); Sodium 138 mmol/L (136-145)
[2021-12-22 13:31] LABS: BUN 87 mg/dL (7-18)
== END 2021-12-22 02:25 | disposition home or self-care (01) ==
LOC: LOS 02:26
PROVIDERS: PCP Family Medicine; Visit Provider Family Medicine
DX: D64.9 Anemia, unspecified (principal); I10 Essential (primary) hypertension; E11.9 Type 2 diabetes mellitus without complications; E66.9 Obesity, unspecified
CPT/HCPCS: 36415; 80048; 83036; 85025

== ENCOUNTER 2021-12-24 09:43 | Outpatient (CLI) | payer MEDICARE, SELFPAY ==
--- NOTE | 2021-12-24 09:30 | RT.EKG_ITS ---
APPROVED REPORT Exam: Resting ECG Reason for Exam: afib Patient Location: O HR:61 bpm ECG Measurements Heart Rate 61 AXIS NE 174 P 89 QRSd 124 QRS -15 QT 481 T 37 QTc 485 Conclusion Sinus rhythm...normal P axis, V-rate 50- 99 Left bundle branch block...QRSd>120, broad/notched R Baseline wander in lead(s) V4
== END 2021-12-24 09:44 | disposition home or self-care (01) ==
LOC: DI.CARD 09:44
PROVIDERS: PCP Family Medicine; Visit Provider Internal Medicine Cardiovascular Disease
DX: I48.91 Unspecified atrial fibrillation (principal); Z79.899 Other long term (current) drug therapy
CPT/HCPCS: 93010

== ENCOUNTER → 2021-12-24 10:51 | Outpatient (BNVA) | payer MEDICARE, SELFPAY | PROVIDERS: PCP Family Medicine; Referring Provider Family Medicine; Visit Provider Internal Medicine Cardiovascular Disease | DX: I48.91 Unspecified atrial fibrillation (principal); I48.11 Longstanding persistent atrial fibrillation; I05.2 Rheumatic mitral stenosis with insufficiency; Z95.3 Presence of xenogenic heart valve | CPT/HCPCS: 93005; 99214; 99213 ==

== ENCOUNTER 2021-12-29 03:48 | Outpatient (CLI) | payer MEDICARE, SELFPAY ==
--- NOTE | 2022-03-16 14:51 | CER_ITS ---
Date of service: 03/16/22 Time of Service: 14:51 Cardiac Event Recorder Referring Provider:: Amy Pinedo Indications:: Atrial fibrillation Cardiac Event Note: This is a 30-day cardiac event monitor, ordered for paroxysmal atrial fibrill ation Predominant rhythm was sinus. Average heart rate overall of 63. Minimum was 54, maximum 109 atrial fibrillation was noted for 6% of the recording with an average heart rate of 90 There were sporadic premature ventricular contractions. There were several runs of nonsustained ventricular tachycardia. The longest of these lasted 6.9 seconds There was no high-grade AV block, no pauses greater than 3 seconds No patient symptoms were reported
== END 2021-12-29 03:49 | disposition home or self-care (01) ==
LOC: RT 03:48
PROVIDERS: PCP Family Medicine; Visit Provider Nurse Practitioner Family
DX: I48.91 Unspecified atrial fibrillation (principal)
CPT/HCPCS: 93270

== ENCOUNTER 2022-01-12 01:58 | Outpatient (CLI) | payer MEDICARE, SELFPAY ==
[2022-01-12 15:11] LABS: ALT 30 U/L (14-59); AST 24 U/L (15-37); Albumin 3.2 g/dL (3.4-5.0); Alkaline Phosphatase 103 U/L (46-116); Anion Gap 11.9 mmol/L (3-11); BUN 56 mg/dL (7-18); Bilirubin, Total 0.3 mg/dL (0.2-1.0); CO2 29.1 mmol/L (21.0-32.0); CREATININE 2.1 mg/dL (0.55-1.02); Calcium 9.2 mg/dL (8.5-10.1); Chloride 97 mmol/L (98-107); Estimated GFR 22.96 (mL/min/1.73m2); Glucose 196 mg/dL (74-106); Potassium 4.2 mmol/L (3.5-5.1); Sodium 138 mmol/L (136-145); Total Protein 8.3 g/dL (6.4-8.2)
== END 2022-01-12 01:59 | disposition home or self-care (01) ==
LOC: LBO 01:58
PROVIDERS: PCP Family Medicine; Visit Provider Internal Medicine Cardiovascular Disease
DX: I05.2 Rheumatic mitral stenosis with insufficiency (principal); I48.91 Unspecified atrial fibrillation; I10 Essential (primary) hypertension; Z79.899 Other long term (current) drug therapy
CPT/HCPCS: 80053

== ENCOUNTER 2022-01-18 05:20 | Inpatient (IN) | payer MEDICARE, SELFPAY ==
[2022-01-18] VITALS (60 sets, daily range): BP systolic 86–133; BP diastolic 34–70; PULSE 53–80; RESP 12–26; TEMP 36.1–37; O2SAT 88–100
--- NOTE | 2022-01-18 05:45 | RT.EKG_ITS ---
APPROVED REPORT Exam: Resting ECG Reason for Exam: Shortness of breath Patient Location: E HR:67 bpm ECG Measurements Heart Rate 67 AXIS TX 163 P 82 QRSd 123 QRS -26 QT 468 T 91 QTc 494 Conclusion Sinus rhythm...normal P axis, V-rate 60- 99 Left bundle branch block...QRSd>120, broad/notched R I have reviewed and interpreted ECG and agree with software generated interpretation. There are no significant changes compared to prior EKG performed on 12/13/2021 at 10:20.
--- NOTE | 2022-01-18 05:49 | ED.GENADUL_ITS ---
Discharge Plan Disposition Patient Disposition: STILL A PATIENT Condition: Stable Discharge Details Clinical Impression: CHF (congestive heart failure) Primary Care Provider: Kimberly Nicole ED Provider: Frederick Naidu [place] Meds and New Rx's Prescriptions: No Action albuterol sulfate 90 mcg/actuation HFA aerosol inhaler 2 puff IH QID PRN metoprolol succinate 100 mg tablet extended release 24 hr 50 mg PO DAILY metolazone 5 mg tablet 5 mg PO .COMPLEX Qty: 60 5RF Rx Instructions: 5 mg PO As directed; Take 1 pill Mondays and , 1 hour prior to Lasix amiodarone 400 mg tablet 200 mg PO DAILY levothyroxine 25 mcg tablet 25 mcg PO DAILY acetaminophen [Tylenol] 325 mg tablet 325 - 650 mg PO Q4H PRN PRN (Reason: pain) Qty: 30 0RF (DME) blood sugar diagnostic Strip See Dose Instructions .ROUTE .MEDSUPPLY Qty: 400 3RF Dose Instruction: As directed Rx Instructions: use tid and prn.Accu-Chek Smart View Test Strip magnesium chloride 64 mg tablet,delayed release (DR/EC) 64 mg PO BID Qty: 180 3RF Eliquis 5 mg tablet 5 mg PO BID Qty: 60 11RF allopurinol 100 mg tablet 100 mg PO DAILY Qty: 90 1RF colchicine 0.6 mg tablet 0.6 mg PO DAILY PRN (Reason: gout) Qty: 20 3RF simvastatin 10 mg tablet 10 mg PO QPM Qty: 90 3RF torsemide 20 mg tablet 40 mg PO DAILY Qty: 60 1RF (DME) diabetic extra depth shoes See Rx Instructions .Route .MEDSUPPLY Qty: 1 0RF Rx Instructions: As directed Jardiance 10 mg Tablet 10 mg PO QAM Qty: 30 1RF sucralfate 1 gram Tablet 1 g PO AC & HS Qty: 120 1RF potassium chloride 20 mEq Tablet,Er Particles/Crystals 20 meq PO BIDWMEAL Qty: 60 1RF pantoprazole 40 mg Tablet,Delayed Release (Dr/Ec) 40 mg PO DAILY Qty: 30 1RF Medical Decision Making Patient presenting with increasing shortness of breath and bilateral lower extre mity edema over the last 2 days despite her diuretic. She denies having fever, cough, chest pain. She is comfortable on nasal cannula oxygen. She does have rails on lung exam. IV established and laboratory studies sent. Chest x-ray ordered. EKG shows left bundle branch block and is unchanged from previous. IV Lasix ordered. Medical Records Medical records reviewed: Yes I reviewed the patient's medical records. ECG Data Attestation: I personally reviewed and interpreted this ECG (s) as follows: Prior ECG tracings: available for review Interpretation: see EKG HPI General Mode of arrival: wheelchair . Date/Time Provider Initiated Documentation: 01/18/22 05:22 . Limitations to Documentation: no limitations . Information obtained by: patient, RN notes reviewed and old records reviewed . HPI Narrative: Patient presents to ED with complaint of increasing shortness of breath over the last 2 days. Patient with significant dyspnea on exertion as well as lying flat. She does have history of congestive heart failure. She has continued her torsemide and continues to make urine but has increasing leg edema and increasing shortness of breath. She denies any chest pain. She denies any fever or cough. She denies any abdominal pain, vomiting. She had been doing relatively well over the last couple of months. Related Data Home Medications Medication Instructions Recorded Confirmed albuterol sulfate 90 mcg/actuation 2 puff inhalation QID PRN 04/17/18 01/15/22 aerosol inhaler acetaminophen 325 mg tablet 325 - 650 mg PO Q4H PRN PRN pain 05/24/18 01/18/22 (Tylenol) #30 tabs blood sugar diagnostic #400 ea 07/29/20 01/15/22 magnesium chloride 64 mg 64 mg PO BID #180 tabs 04/07/21 01/18/22 (magnesium chloride) tablet,delayed release metoprolol succinate 100 mg 50 mg PO DAILY 04/29/21 01/18/22 tablet,extended release 24 hr amiodarone 400 mg tablet 200 mg PO DAILY 06/24/21 01/18/22 apixaban 5 mg tablet (Eliquis) 5 mg PO BID #60 tabs 07/15/21 01/18/22 allopurinol 100 mg tablet 100 mg PO DAILY #90 tabs 08/13/21 01/18/22 levothyroxine 25 mcg tablet 25 mcg PO DAILY 08/21/21 01/18/22 colchicine 0.6 mg tablet 0.6 mg PO DAILY PRN gout #20 tabs 10/15/21 01/18/22 metolazone 5 mg tablet 5 mg PO .COMPLEX #60 tabs 10/27/21 01/18/22 empagliflozin 10 mg tablet 10 mg PO QAM #30 tabs 11/23/21 01/18/22 (Jardiance) pantoprazole 40 mg tablet,delayed 40 mg PO DAILY #30 tabs 11/23/21 01/18/22 release potassium chloride 20 mEq 20 meq PO BIDWMEAL #60 tabs 11/23/21 01/18/22 tablet,extended release(part/cryst) sucralfate 1 gram tablet 1 g PO AC & HS #120 tabs 11/23/21 01/18/22 simvastatin 10 mg tablet 10 mg PO QPM #90 tabs 11/27/21 01/18/22 torsemide 20 mg tablet 40 mg PO DAILY #60 tabs 12/07/21 01/18/22 diabetic extra depth shoes #1 ea 01/01/22 01/15/22 Previous Rx's Medication Instructions Recorded acetaminophen 325 mg tablet 325 - 650 mg PO Q4H PRN PRN pain 05/24/18 (Tylenol) #30 tabs blood sugar diagnostic #400 ea 07/29/20 magnesium chloride 64 mg 64 mg PO BID #180 tabs 04/07/21 (magnesium chloride) tablet,delayed release apixaban 5 mg tablet (Eliquis) 5 mg PO BID #60 tabs 07/15/21 allopurinol 100 mg tablet 100 mg PO DAILY #90 tabs 08/13/21 colchicine 0.6 mg tablet 0.6 mg PO DAILY PRN gout #20 tabs 10/15/21 metolazone 5 mg tablet 5 mg PO .COMPLEX #60 tabs 10/27/21 empagliflozin 10 mg tablet 10 mg PO QAM #30 tabs 11/23/21 (Jardiance) pantoprazole 40 mg tablet,delayed 40 mg PO DAILY #30 tabs 11/23/21 release potassium chloride 20 mEq 20 meq PO BIDWMEAL #60 tabs 11/23/21 tablet,extended release(part/cryst) sucralfate 1 gram tablet 1 g PO AC & HS #120 tabs 11/23/21 simvastatin 10 mg tablet 10 mg PO QPM #90 tabs 11/27/21 torsemide 20 mg tablet 40 mg PO DAILY #60 tabs 12/07/21 diabetic extra depth shoes #1 ea 01/01/22 Allergies Allergy/AdvReac Type Severity Reaction Status Date / Time aspirin Allergy Hives Verified 01/18/22 05:44 Penicillins Allergy Verified 01/18/22 05:44 tetracycline Allergy Verified 01/18/22 05:44 adhesive AdvReac Intermediate Topical Verified 01/18/22 05:44 Irritation General Stated Complaint: SOB BROOKE: 2 Review of Systems Narrative: 05/21 Review of Systems completed and is negative except as stated above in HPI (Systems reviewed: Const, Eyes, ENT, Resp, CV, GI, , MSK, Skin, Neuro) PFSH All Active Problems (Updated 01/18/22 @ 07:26 by Frederick aNidu MD) Malignant hypertensive heart and CKD (chronic kidney disease) stage IV (Acute) CHF (congestive heart failure) (Chronic) On amiodarone therapy (Acute) Obstructive sleep apnea syndrome (Chronic 09/26/12) DX SEP [address] [facility]; wears CPAP machine. Diabetes mellitus (Chronic 11/07/12) Anemia (Chronic) Atrial fibrillation (Chronic 06/23/12) 02/19 start Tikosyn 06/21 and 11/20 recurrent 2012 ablation at [facility] echo 2012 at [facility], normal LVEF and valves 05/2021 RVR, s/p RODRIGUEZ CV and change to amiodarone. Essential hypertension (Acute 08/13/13) Gout (Chronic) intermittent, diet based. Hyperlipidemia (Acute) Hypothyroidism (Chronic 12/06/14) Acute UTI (Acute) Mitral stenosis with regurgitation (Chronic) Obesity, morbid (Chronic) a. BMI of 52 Medical History Asthma Bilateral bunions Colon polyp (07/10/18) 12/19 tubular adenoma Diabetic neuropathy Diverticulosis Former smoker (08/16/14) 5 pack yr history Gastroesophageal reflux disease GI bleed had melena transiently in 02/2021; unable to be evaluated due to AV stenosis. 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 2 covered stents placed in the artery EIA extending into the R RN ORTHOPAEDIC Family History Mother , 65 Thoracic aneurysm, ruptured Personal history of malignant neoplasm LYMPHOMA Father , 64 Heart disease Myocardial infarction Stroke Maternal Grandfather , 80 Heart disease Stroke Paternal Grandfather , 65 Heart disease Maternal Grandmother , 83 Heart disease Paternal Grandmother , 40 Cancer Son No problems noted. Son No problems noted. Social History Smoking/Tobacco Use Status: Former Tobacco Use Quit Date: 08/08/72 Tobacco: How many years used: 4 Smoking risk assessment performed?: Yes Alcohol Intake: never Drug use: Never Substance use type: does not use Caregiver/Support person: No Household members: spouse Housing: house Communication Needs: None current occupation: [employer] Pets and animals: Yes Pets and animals: dog(s) Sexually active: Yes Do you think of yourself as: straight/heterosexual Current gender identity: female What is your relationship status?: How often do you talk on the phone with friends or family?: three or more times per week How often do you get together with friends or relatives?: three or more times per week How often do you attend jehovah's witness or mu-ism services?: 4 or more times per year Do you belong to any clubs or organized social groups?: no Panel score (0-1 are the most socially isolated patients): 3 What type of physical activity do you participate in: walking Duration: < 15 minutes/day Frequency: 1-2 times per week Radha/Episcopalian: Orthodoxy Special radha needs: No Seatbelt use: always Drive intox or ride w/intox 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 HEENT: NC/AT. Normal facial exam. Eyes: Normal conjunctiva and sclera. Neck: Supple. Trachea midline. Lungs: Normal respiratory effort. Lungs with rales. Cor: RRR with murmur. Good radial pulses. GI: Soft. NT/ND. Neuro: A+O x 3. Normal speech, mentation, gait. Cranial nerves II - XII grossly intact. No gross motor or sensory deficit. Ext: No C/C. 2+ BLE edema. Skin: Warm and dry without rash. Course Vital Signs Vital signs: Vital Signs Temperature 98.2 F 01/18/22 05:41 Pulse 72 01/18/22 05:41 Respiratory Rate 24 01/18/22 05:41 Blood Pressure 107/34 L 01/18/22 05:41 Pulse Oximetry 97 01/18/22 05:41 Temperature 98.2 F 01/18/22 05:41 Temperature Source Oral 01/18/22 05:41 Pulse 72 01/18/22 05:41 Respiratory Rate 21 01/18/22 05:46 Respiratory Effort 01/18/22 05:46 Respiratory Depth Shallow 01/18/22 05:46 Respiratory Pattern Normal 01/18/22 05:46 Blood Pressure 107/34 L 01/18/22 05:41 Blood Pressure Position Sitting 01/18/22 05:41 Pulse Oximetry 97 01/18/22 05:41 Oxygen Delivery Method Nasal Cannula 01/18/22 05:41 Oxygen Flow Rate 4 01/18/22 05:41
--- NOTE | 2022-01-18 06:15 | DI.RAD_ITS ---
Exam(s) XR PORTABLE CHEST AP EXAM: XR PORTABLE CHEST AP CLINICAL HISTORY: SOB TECHNIQUE: 2D digital imaging was performed. COMPARISON: CR,XR XR PORTABLE CHEST AP from 12/13/2021 FINDINGS: Exam mildly limited by under penetration at the lung bases due to patient body habitus. LUNGS: Grossly clear. No focal consolidation. No pleural abnormality seen. HEART: Heart is enlarged. There is an aortic valve prosthesis. Mitral annular calcifications are seen . AORTA: Normal. BONES: Degenerative changes both shoulders.. Soft tissues: Monitoring device overlying left chest. IMPRESSION: Cardiomegaly. No acute findings. DATA REPOSITORY: RADIATION DOSE DELIVERED:
[2022-01-18] MEDS: Furosemide 100 MG/10 ML VIAL 80 MG IVP (06:36)
[2022-01-18 06:59] LABS: Absolute Basophil Count 0.05 10^3/uL (0.0-0.2); Absolute Eosinophil Count 0.24 10^3/uL (0.0-0.7); Absolute Lymphocyte Count 1.29 10^3/uL (1.2-3.4); Absolute Monocyte Count 0.89 10^3/uL (0.1-0.8); Absolute Neutrophil Count 7.64 10^3/uL (1.2-6.7); Basophils % 0.5; Eosinophils % 2.3; HCT 26.9 % (36.0-46.0); HGB 7.6 g/dL (11.2-15.7); Immature Grans % 1.9; Lymphocytes % 12.5; MCHC 28.3 % (32.0-36.0); MCV 81 fL (80-95); Monocytes % 8.6; Neutrophils % 74.2; Nucleated RBC 0.2 % (0.0-0.3); Platelet Count 476 10^3/uL (130-400); RBC 3.31 10^6/uL (3.93-5.22); RDW 21.7 % (11.7-14.6); RDW-SD 63.2 fL; WBC 10.31 10^3/uL (4.4-10.8)
[2022-01-18 07:23] LABS: Anisocytosis 2+; Diff Comment RBC Morph Reviewed; Microcytosis 1+
[2022-01-18 07:25] LABS: ALT 23 U/L (14-59); AST 18 U/L (15-37); Albumin 2.9 g/dL (3.4-5.0); Alkaline Phosphatase 92 U/L (46-116); Anion Gap 10.2 mmol/L (3-11); Bilirubin, Total 0.3 mg/dL (0.2-1.0); CO2 30.8 mmol/L (21.0-32.0); CREATININE 2.5 mg/dL (0.55-1.02); Calcium 8.9 mg/dL (8.5-10.1); Chloride 96 mmol/L (98-107); Estimated GFR 18.78 (mL/min/1.73m2); Glucose 200 mg/dL (74-106); Magnesium 2.3 mg/dL (1.8-2.4); Potassium 3.3 mmol/L (3.5-5.1); Sodium 137 mmol/L (136-145); Total Protein 7.8 g/dL (6.4-8.2)
[2022-01-18 07:28] LABS: BUN 83 mg/dL (7-18); Troponin I 149 ng/L (<or=60)
[2022-01-18 07:41] LABS: Source Nasal/Nares
--- NOTE | 2022-01-18 08:02 | DI.VRAD_ITS ---
PROCEDURE INFORMATION: Exam: XR Chest Exam date and time: 01/18/2022 7:00 AM Age: 76 years old Clinical indication: Shortness of breath TECHNIQUE: Imaging protocol: XR of the chest. Views: 1 view. COMPARISON: XR PORTABLE CHEST AP 12/13/2021 11:01 AM FINDINGS: Lungs: Unremarkable. No consolidation. Pleural spaces: Unremarkable. No pleural effusion. No pneumothorax. Heart/Mediastinum: Unremarkable. No cardiomegaly. Bones/joints: Unremarkable. IMPRESSION: No acute findings. Dictated and Authenticated by: Drew Armenta MD. Ordering:GALO Mack MD
[2022-01-18 08:50] LABS: COVID-19 PCR Negative (Negative)
--- NOTE | 2022-01-18 08:50 | W.EDPROG ---
Date of service: 01/18/22 Time of Service: 07:30 Medical Decision Making Patient signed out to me by Dr. Naidu at time of shift change with repeat troponin, COVID pending, anticipate likely admission. COVID-negative. On my assessment patient reporting that she feels somewhat lightheaded and unwell. Systolic BP 105. Repeat troponin downtrending. Patient with chronic anemia, hemoglobin noted to be 7.6 today. Patient reports that she has not had diarrhea but has had very dark stool since yesterday. I performed a rectal exam showing formed stool, melena, Hemoccult +. Unclear if anemia is contributing to patient's symptoms at this time, plan for 1 unit PRBCs. Plan for admission. Medical Records Medical records reviewed: Yes I reviewed the patient's medical records. Lab Data Lab results reviewed: Yes I reviewed the patient's lab results. Labs: Laboratory Tests Range/Units 01/18/22 01/18/22 01/18/22 06:37 06:37 06:37 WBC (4.4-10.8) 10^3/uL 10.31 RBC (3.93-5.22) 10^6/uL 3.31 L Hgb (11.2-15.7) g/dL 7.6 L Hct (36.0-46.0) % 26.9 L MCV (80-95) fL 81 MCH (27.0-33.0) pg 23.0 L MCHC (32.0-36.0) % 28.3 L RDW (11.7-14.6) % 21.7 H Plt Count (130-400) 10^3/uL 476 H MPV (8.0-11.0) fL 9.0 Immature Gran % 1.9 Neutrophils % 74.2 Lymphocytes % 12.5 Monocytes % 8.6 Eosinophils % 2.3 Basophils % 0.5 Nucleated RBC % (0.0-0.3) % 0.2 Absolute Neutrophils (1.2-6.7) 10^3/uL 7.64 H Absolute Lymphocytes (1.2-3.4) 10^3/uL 1.29 Absolute Monocytes (0.1-0.8) 10^3/uL 0.89 H Absolute Eosinophils (0.0-0.7) 10^3/uL 0.24 Absolute Basophils (0.0-0.2) 10^3/uL 0.05 RBC Morphology See Below Anisocytosis 2+ Microcytosis 1+ D-Dimer (<500) ng/mlFEU Sodium (136-145) mmol/L 137 Potassium (3.5-5.1) mmol/L 3.3 L Chloride (98-107) mmol/L 96 L Carbon Dioxide (21.0-32.0) mmol/L 30.8 Anion Gap (3-11) mmol/L 10.2 BUN (7-18) mg/dL 83 H* Creatinine (0.55-1.02) mg/dL 2.5 H Estimated GFR/1.73 m2 (mL/min/1.73m2) 18.78 Glucose (74-106) mg/dL 200 H Calcium (8.5-10.1) mg/dL 8.9 Magnesium (1.8-2.4) mg/dL 2.3 Total Bilirubin (0.2-1.0) mg/dL 0.3 AST (15-37) U/L 18 ALT (14-59) U/L 23 Alkaline Phosphatase (46-116) U/L 92 Troponin I (<or=60) ng/L 149 H* NT-Pro-B Natriuret Pep (<300) pg/mL 1404 H Total Protein (6.4-8.2) g/dL 7.8 Albumin (3.4-5.0) g/dL 2.9 L TSH (0.36-3.74) uIU/mL Free T4 (0.76-1.46) ng/dL COVID-19 Source SARS-CoV-2 (PCR) (Negative) Patient ABO/Rh Antibody Screen Antibody Identification Antigen Identification Crossmatch Range/Units 01/18/22 01/18/22 01/18/22 07:35 09:49 09:49 WBC (4.4-10.8) 10^3/uL RBC (3.93-5.22) 10^6/uL Hgb (11.2-15.7) g/dL Hct (36.0-46.0) % MCV (80-95) fL MCH (27.0-33.0) pg MCHC (32.0-36.0) % RDW (11.7-14.6) % Plt Count (130-400) 10^3/uL MPV (8.0-11.0) fL Immature Gran % Neutrophils % Lymphocytes % Monocytes % Eosinophils % Basophils % Nucleated RBC % (0.0-0.3) % Absolute Neutrophils (1.2-6.7) 10^3/uL Absolute Lymphocytes (1.2-3.4) 10^3/uL Absolute Monocytes (0.1-0.8) 10^3/uL Absolute Eosinophils (0.0-0.7) 10^3/uL Absolute Basophils (0.0-0.2) 10^3/uL RBC Morphology Anisocytosis Microcytosis D-Dimer (<500) ng/mlFEU Sodium (136-145) mmol/L Potassium (3.5-5.1) mmol/L Chloride (98-107) mmol/L Carbon Dioxide (21.0-32.0) mmol/L Anion Gap (3-11) mmol/L BUN (7-18) mg/dL Creatinine (0.55-1.02) mg/dL Estimated GFR/1.73 m2 (mL/min/1.73m2) Glucose (74-106) mg/dL Calcium (8.5-10.1) mg/dL Magnesium (1.8-2.4) mg/dL Total Bilirubin (0.2-1.0) mg/dL AST (15-37) U/L ALT (14-59) U/L Alkaline Phosphatase (46-116) U/L Troponin I (<or=60) ng/L 131 H* NT-Pro-B Natriuret Pep (<300) pg/mL Total Protein (6.4-8.2) g/dL Albumin (3.4-5.0) g/dL TSH (0.36-3.74) uIU/mL 4.55 H Free T4 (0.76-1.46) ng/dL 1.06 COVID-19 Source Nasal/Nares SARS-CoV-2 (PCR) (Negative) Negative Patient ABO/Rh Antibody Screen Antibody Identification Antigen Identification Crossmatch Range/Units 01/18/22 01/18/22 01/18/22 10:23 10:23 10:23 WBC (4.4-10.8) 10^3/uL RBC (3.93-5.22) 10^6/uL Hgb (11.2-15.7) g/dL 7.6 L Hct (36.0-46.0) % 26.8 L MCV (80-95) fL MCH (27.0-33.0) pg MCHC (32.0-36.0) % RDW (11.7-14.6) % Plt Count (130-400) 10^3/uL MPV (8.0-11.0) fL Immature Gran % Neutrophils % Lymphocytes % Monocytes % Eosinophils % Basophils % Nucleated RBC % (0.0-0.3) % Absolute Neutrophils (1.2-6.7) 10^3/uL Absolute Lymphocytes (1.2-3.4) 10^3/uL Absolute Monocytes (0.1-0.8) 10^3/uL Absolute Eosinophils (0.0-0.7) 10^3/uL Absolute Basophils (0.0-0.2) 10^3/uL RBC Morphology Anisocytosis Microcytosis D-Dimer (<500) ng/mlFEU 636 H Sodium (136-145) mmol/L Potassium (3.5-5.1) mmol/L Chloride (98-107) mmol/L Carbon Dioxide (21.0-32.0) mmol/L Anion Gap (3-11) mmol/L BUN (7-18) mg/dL Creatinine (0.55-1.02) mg/dL Estimated GFR/1.73 m2 (mL/min/1.73m2) Glucose (74-106) mg/dL Calcium (8.5-10.1) mg/dL Magnesium (1.8-2.4) mg/dL Total Bilirubin (0.2-1.0) mg/dL AST (15-37) U/L ALT (14-59) U/L Alkaline Phosphatase (46-116) U/L Troponin I (<or=60) ng/L NT-Pro-B Natriuret Pep (<300) pg/mL Total Protein (6.4-8.2) g/dL Albumin (3.4-5.0) g/dL TSH (0.36-3.74) uIU/mL Free T4 (0.76-1.46) ng/dL COVID-19 Source SARS-CoV-2 (PCR) (Negative) Patient ABO/Rh A Negative Antibody Screen POSITIVE Antibody Identification Anti-Fya Antigen Identification Fya Antigen - NEGATIVE Crossmatch See Detail ECG Data Attestation: I personally reviewed and interpreted this ECG (s) as follows: Interpretation: EKG shows sinus rhythm at 68, incomplete left bundle branch block, normal axis, no STEMI, nondiagnostic EKG Sign Out Sign Out Data: Sign Out Comment: Pending repeat troponin and response to IV Lasix but likely will require admission. COVID swab pending. Last updated by Frederick Naidu MD at 01/18/22 08:19 Discharge Plan Disposition Patient Disposition: [facility] INPATIENT Condition: Stable Discharge Details Clinical Impression: CHF (congestive heart failure), Anemia Admit Date/Time: 01/18/22 10:33 Admit Provider: Mervin Monk Attending Provider: Mervin Monk Primary Care Provider: Kimberly Nicole ED Provider: Drea Arredondo Discharge Data Discharge Date/Time-TO BE ENTERED AT DEPARTURE: 01/18/22 11:15
--- NOTE | 2022-01-18 10:00 | RT.EKG_ITS ---
APPROVED REPORT Exam: Resting ECG Reason for Exam: dizzy Patient Location: E HR:68 bpm ECG Measurements Heart Rate 68 AXIS AR 170 P 92 QRSd 114 QRS -21 QT 469 T 124 QTc 498 Conclusion Sinus rhythm...normal P axis, V-rate 60- 99 Incomplete left bundle branch block...QRSd>110mS, terminal axis(-90,-1) Consider anterior infarct...Q >30mS in V2-V5 sinus rhythm at 68, incomplete left bundle branch block, normal axis, no STEMI, nondiagnostic EKG
[2022-01-18 10:21] LABS: Troponin I 131 ng/L (<or=60)
[2022-01-18 10:33] LABS: HCT 26.8 % (36.0-46.0); HGB 7.6 g/dL (11.2-15.7)
[2022-01-18 10:38] LABS: NT-proBNP 1404 pg/mL (<300)
[2022-01-18 11:02] LABS: TSH (W/Ref FT4) 4.55 uIU/mL (0.36-3.74)
[2022-01-18 11:08] LABS: D-Dimer 636 ng/mlFEU (<500)
[2022-01-18 11:21] LABS: FREE T4 1.06 ng/dL (0.76-1.46)
[2022-01-18] MEDS: Potassium Chloride 20 MEQ TABCR PO ×2 (11:57→20:38)
[2022-01-18] MEDS: Pantoprazole 40 MG VIAL IVP (11:57)
[2022-01-18] MEDS: Normal Saline Flush 10 ML SYR IVP (11:57)
[2022-01-18] MEDS: Sucralfate 1 GM TAB PO ×3 (11:57→21:41)
[2022-01-18 14:54] LABS: Bilirubin Negative (Negative); Blood Negative (Negative); Clarity Clear (Clear); Glucose 250 mg/dL (Negative); Ketones Negative (Negative); Leukocyte Esterase Negative (Negative); Nitrite Negative (Negative); Specific Gravity 1.015 (1.005-1.025); Urobilinogen 0.2 EU/dL (Up TO 0.2)
[2022-01-18 17:25] LABS: HCT 29.2 % (36.0-46.0); HGB 8.6 g/dL (11.2-15.7)
--- NOTE | 2022-01-18 19:14 | HPE_ITS ---
Date of service: 01/18/22 Time of Service: 19:14 Assessment and Plan Assessment and plan (1) CHF (congestive heart failure): Status: Chronic Assessment and plan: BNP is elevated; this may be, at least in part, due to her CKD. No evidence of pulmonary edema on CXR. Given IV lasix in the ED. Cont her routine torsemide 40mg daily and metolazone on Mondays and 1 hour prior to torsemide. Echocardiogram on 11/23/21 showed est. EF of 60%. Bioprosthetic aortic valce with peak gradient of 49, rhodes of 28mmHg. No aortic regurgitation. Moderate mitral regurgitation and stenosis. Qualifiers: Heart failure chronicity: acute on chronic Heart failure type: right- sided Qualified Code(s): I50.813 - Acute on chronic right heart failure (2) Obstructive sleep apnea syndrome: Status: Chronic Assessment and plan: With pulmonary hypertension. RVSP of 45.1 mmHg. Cont home CPAP. (3) Diabetes mellitus: Status: Chronic Assessment and plan: A1c 6.3 on . Diet controlled but was placed on Jardiance during admission in for CHF. Diabetic diet. (4) Essential hypertension: Status: Acute Assessment and plan: Cont metoprolol Cr 50mg daily. Monitor. (5) Asthma: Assessment and plan: No acute exacerbation. PRN proventil. Qualifiers: Asthma complication type: uncomplicated Asthma persistence: intermittent Asthma severity: mild Qualified Code(s): J45.20 - Mild intermittent asthma, uncomplicated (6) Atrial fibrillation: Status: Chronic Assessment and plan: Cont amiodarone, metoprolol and Eliquis. Qualifiers: Atrial fibrillation type: longstanding persistent Qualified Code(s): I48.11 - Longstanding persistent atrial fibrillation (7) Malignant hypertensive heart and CKD (chronic kidney disease) stage IV: Status: Acute Assessment and plan: Creatinine of 2.2 with Est. GFR of 21.76; at her baseline. Avoid hypotension and nephrotoxic agents. (8) Severe aortic stenosis: Assessment and plan: S/P TAVR. Cont Eliquis despite GI blood loss. No acute hemorrhagic loss noted. (9) GI bleed: Assessment and plan: With anemia; likely the etiology of her acute shortness of breath. Transfusing 1 unit of RBCs and monitoring. D/W gen. surg. regarding in vs outpt EGD. IV PPI and carafate. On eliquis; will not stop at this time. It's critical she remain on anticoagulant d/t her prosthetic aortic valve. History of Present Illness History of Present Illness Chief Complaint: Shortness of breath. Narrative: This is a 76 yo female with a PMH of CHF, CKD, LAI, DM, Afib, Severe aortic stenosis, s/p TAVR, anticoagulation with Eliquis, sigmoidectomy, peptic ulcerations, GI bleed, asthma, RLS. She presented to the ED d/t increasing shortness of breath over appx 2 days. + BETTS and orthopnea. She had noted increased pedal edema. No CP/palpitations, fever/chills/cough. No abd pain/N/V. ED eval showed a Hgb of 7.6 ( 9.8 on 12/22/21). CXR w/o acute findings. WBC count normal. NTProBNP of 1404 (2478 on 11/20/21 during previous admission > 797 on 11/23 after tx). She had been on a PPI and carafate for previous GI bleed. Denies any use of NSAIDS or steroids. Admitted for transfusion of 1 unit pRBCs and further evaluation and monitoring. Review of Systems All systems reviewed & are unremarkable except as noted in HPI and below PFSH All Active Problems Malignant hypertensive heart and CKD (chronic kidney disease) stage IV (Acute) CHF (congestive heart failure) (Chronic) On amiodarone therapy (Acute) Obstructive sleep apnea syndrome (Chronic 09/26/12) DX SEP 2012 AT [facility]; wears CPAP machine. Diabetes mellitus (Chronic 11/07/12) Anemia (Chronic) Atrial fibrillation (Chronic 06/23/12) 02/19 start Tikosyn 06/21 and 11/20 [address] [facility] [place] echo [address] [facility] [place], normal LVEF and valves 05/2021 RVR, s/p RODRIGUEZ CV and change to amiodarone. Essential hypertension (Acute 08/13/13) Gout (Chronic) intermittent, diet based. Hyperlipidemia (Acute) Hypothyroidism (Chronic 12/06/14) Acute UTI (Acute) Mitral stenosis with regurgitation (Chronic) Obesity, morbid (Chronic) a. BMI of 52 Medical History Asthma Bilateral bunions Colon polyp (07/10/18) 12/19 tubular adenoma Diabetic neuropathy Diverticulosis Former smoker (08/16/14) 5 pack yr history Gastroesophageal reflux disease GI bleed had melena transiently in 02/2021; unable to be evaluated due to AV stenosis. 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 2 covered stents placed in the artery EIA extending into the R MIXED L[employer]ST[employer] Family History Mother , 65 Thoracic aneurysm, ruptured Personal history of malignant neoplasm LYMPHOMA Father , 64 Heart disease Myocardial infarction Stroke Maternal Grandfather , 80 Heart disease Stroke Paternal Grandfather , 65 Heart disease Maternal Grandmother , 83 Heart disease Paternal Grandmother , 40 Cancer Son No problems noted. Son No problems noted. Social History Smoking/Tobacco Use Status: Former Tobacco Use Quit Date: 08/08/72 Tobacco: How many years used: 4 Second Hand Exposure: No Smoking risk assessment performed?: Yes Alcohol Intake: never Drug use: Never Substance use type: does not use Caregiver/Support person: No Household members: spouse Housing: house Communication Needs: None current occupation: [employer] Pets and animals: Yes Pets and animals: dog(s) Sexually active: Yes Do you think of yourself as: straight/heterosexual Current gender identity: female What is your relationship status?: How often do you talk on the phone with friends or family?: twice per week How often do you get together with friends or relatives?: three or more times per week How often do you attend scientology or uatsdin services?: 4 or more times per year Do you belong to any clubs or organized social groups?: no Panel score (0-1 are the most socially isolated patients): 3 What type of physical activity do you participate in: walking Duration: < 15 minutes/day Frequency: 1-2 times per week Radha/Mandaeism: Samaritan Special radha needs: No Seatbelt use: always Drive intox or ride w/intox 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 Do you feel safe at home: Yes Do you feel safe in your relationship?: Yes Meds Allergies and Home Medications Allergies Allergy/AdvReac Type Severity Reaction Status Date / Time aspirin Allergy Hives Verified 01/18/22 05:44 Penicillins Allergy Verified 01/18/22 05:44 tetracycline Allergy Verified 01/18/22 05:44 adhesive AdvReac Intermediate Topical Verified 01/18/22 05:44 Irritation Home Medications Medication Instructions Recorded Confirmed Type albuterol sulfate 90 mcg/actuation 2 puff inhalation QID PRN 04/17/18 01/15/22 History aerosol inhaler acetaminophen 325 mg tablet 325 - 650 mg PO Q4H PRN PRN pain 05/24/18 01/18/22 Rx (Tylenol) #30 tabs blood sugar diagnostic #400 ea 07/29/20 01/15/22 Rx magnesium chloride 64 mg 64 mg PO BID #180 tabs 04/07/21 01/18/22 Rx (magnesium chloride) tablet,delayed release metoprolol succinate 100 mg 50 mg PO DAILY 04/29/21 01/18/22 History tablet,extended release 24 hr amiodarone 400 mg tablet 200 mg PO DAILY 06/24/21 01/18/22 History apixaban 5 mg tablet (Eliquis) 5 mg PO BID #60 tabs 07/15/21 01/18/22 Rx allopurinol 100 mg tablet 100 mg PO DAILY #90 tabs 08/13/21 01/18/22 Rx levothyroxine 25 mcg tablet 25 mcg PO DAILY 08/21/21 01/18/22 History colchicine 0.6 mg tablet 0.6 mg PO DAILY PRN gout #20 tabs 10/15/21 01/18/22 Rx metolazone 5 mg tablet 5 mg PO .COMPLEX #60 tabs 10/27/21 01/18/22 Rx empagliflozin 10 mg tablet 10 mg PO QAM #30 tabs 11/23/21 01/18/22 Rx (Jardiance) pantoprazole 40 mg tablet,delayed 40 mg PO DAILY #30 tabs 11/23/21 01/18/22 Rx release potassium chloride 20 mEq 20 meq PO BIDWMEAL #60 tabs 11/23/21 01/18/22 Rx tablet,extended release(part/cryst) sucralfate 1 gram tablet 1 g PO AC & HS #120 tabs 11/23/21 01/18/22 Rx simvastatin 10 mg tablet 10 mg PO QPM #90 tabs 11/27/21 01/18/22 Rx torsemide 20 mg tablet 40 mg PO DAILY #60 tabs 12/07/21 01/18/22 Rx diabetic extra depth shoes #1 ea 01/01/22 01/15/22 Rx Exam Narrative Exam Narrative: Pleasant female lying in bed. Conversant. Const General: cooperative and no acute distress Nutritional Appearance: obese Orientation: alert and oriented x3 Eyes General: appearance normal, both eyes and all related structures Sclera: sclerae normal Resp Effort & Inspection: normal respiratory effort Auscultation: clear to auscultation bilaterally Cardio Rate: regular rate Rhythm: regular rhythm Heart Sounds: S1 normal and S2 normal GI Inspection: obesity Palpation: soft and tender in the epigastrum; with no rebound tenderness Auscultation: normal bowel sounds Skin General skin exam: no rashes or lesions noted Neuro General: no focal motor deficits Cognition: normal cognition Speech: speech normal Extrem General: no calf tenderness and edema Laterality: bilateral (1+) Psych Appearance: grossly normal Mental Status: mental status grossly normal Speech and Movement: speech and movement normal Affect: normal affect Thought Process: normal Thought Content: normal Insight: insight good Results Labs Result diagrams: 01/18/22 17:20 01/18/22 06:37 Labs: Laboratory Results - last 24 hr 01/18/22 01/18/22 01/18/22 06:37 06:37 06:37 WBC 10.31 RBC 3.31 L Hgb 7.6 L Hct 26.9 L MCV 81 MCH 23.0 L MCHC 28.3 L RDW 21.7 H Plt Count 476 H MPV 9.0 Immature Gran % 1.9 Neutrophils % 74.2 Lymphocytes % 12.5 Monocytes % 8.6 Eosinophils % 2.3 Basophils % 0.5 Nucleated RBC % 0.2 Absolute Neutrophils 7.64 H Absolute Lymphocytes 1.29 Absolute Monocytes 0.89 H Absolute Eosinophils 0.24 Absolute Basophils 0.05 RBC Morphology See Below Anisocytosis 2+ Microcytosis 1+ D-Dimer Sodium 137 Potassium 3.3 L Chloride 96 L Carbon Dioxide 30.8 Anion Gap 10.2 BUN 83 H* Creatinine 2.5 H Estimated GFR/1.73 m2 18.78 Glucose 200 H Calcium 8.9 Magnesium 2.3 Total Bilirubin 0.3 AST 18 ALT 23 Alkaline Phosphatase 92 Troponin I 149 H* NT-Pro-B Natriuret Pep 1404 H Total Protein 7.8 Albumin 2.9 L TSH Free T4 Urine Color Urine Clarity Urine pH Ur Specific [place] Urine Protein Urine Ketones Urine Blood Urine Nitrite Urine Bilirubin Urine Urobilinogen Ur Leukocyte Esterase Urine Glucose COVID-19 Source SARS-CoV-2 (PCR) Patient ABO/Rh Antibody Screen Antibody Identification Antigen Identification Crossmatch 01/18/22 01/18/22 01/18/22 07:35 09:49 09:49 WBC RBC Hgb Hct MCV MCH MCHC RDW Plt Count MPV Immature Gran % Neutrophils % Lymphocytes % Monocytes % Eosinophils % Basophils % Nucleated RBC % Absolute Neutrophils Absolute Lymphocytes Absolute Monocytes Absolute Eosinophils Absolute Basophils RBC Morphology Anisocytosis Microcytosis D-Dimer Sodium Potassium Chloride Carbon Dioxide Anion Gap BUN Creatinine Estimated GFR/1.73 m2 Glucose Calcium Magnesium Total Bilirubin AST ALT Alkaline Phosphatase Troponin I 131 H* NT-Pro-B Natriuret Pep Total Protein Albumin TSH 4.55 H Free T4 1.06 Urine Color Urine Clarity Urine pH Ur Specific [place] Urine Protein Urine Ketones Urine Blood Urine Nitrite Urine Bilirubin Urine Urobilinogen Ur Leukocyte Esterase Urine Glucose COVID-19 Source Nasal/Nares SARS-CoV-2 (PCR) Negative Patient ABO/Rh Antibody Screen Antibody Identification Antigen Identification Crossmatch 01/18/22 01/18/22 01/18/22 10:23 10:23 10:23 WBC RBC Hgb 7.6 L Hct 26.8 L MCV MCH MCHC RDW Plt Count MPV Immature Gran % Neutrophils % Lymphocytes % Monocytes % Eosinophils % Basophils % Nucleated RBC % Absolute Neutrophils Absolute Lymphocytes Absolute Monocytes Absolute Eosinophils Absolute Basophils RBC Morphology Anisocytosis Microcytosis D-Dimer 636 H Sodium Potassium Chloride Carbon Dioxide Anion Gap BUN Creatinine Estimated GFR/1.73 m2 Glucose Calcium Magnesium Total Bilirubin AST ALT Alkaline Phosphatase Troponin I NT-Pro-B Natriuret Pep Total Protein Albumin TSH Free T4 Urine Color Urine Clarity Urine pH Ur Specific [place] Urine Protein Urine Ketones Urine Blood Urine Nitrite Urine Bilirubin Urine Urobilinogen Ur Leukocyte Esterase Urine Glucose COVID-19 Source SARS-CoV-2 (PCR) Patient ABO/Rh A Negative Antibody Screen POSITIVE Antibody Identification Anti-Fya Antigen Identification Fya Antigen - NEGATIVE Crossmatch See Detail 01/18/22 01/18/22 01/18/22 10:23 14:35 17:20 WBC RBC Hgb 8.6 L Hct 29.2 L MCV MCH MCHC RDW Plt Count MPV Immature Gran % Neutrophils % Lymphocytes % Monocytes % Eosinophils % Basophils % Nucleated RBC % Absolute Neutrophils Absolute Lymphocytes Absolute Monocytes Absolute Eosinophils Absolute Basophils RBC Morphology Anisocytosis Microcytosis D-Dimer Sodium Potassium Chloride Carbon Dioxide Anion Gap BUN Creatinine Estimated GFR/1.73 m2 Glucose Calcium Magnesium Total Bilirubin AST ALT Alkaline Phosphatase Troponin I NT-Pro-B Natriuret Pep Total Protein Albumin TSH Free T4 Urine Color Yellow Urine Clarity Clear Urine pH 7.0 Ur Specific [place] 1.015 Urine Protein Negative Urine Ketones Negative Urine Blood Negative Urine Nitrite Negative Urine Bilirubin Negative Urine Urobilinogen 0.2 Ur Leukocyte Esterase Negative Urine Glucose 250 H COVID-19 Source SARS-CoV-2 (PCR) Patient ABO/Rh Antibody Screen Antibody Identification Antigen Identification Cancelled Crossmatch Last Vital Signs Temp 36.5 C 01/18/22 16:22 Pulse 61 01/18/22 16:22 Resp 16 01/18/22 16:22 BP 105/63 01/18/22 16:22 Pulse Ox 97 01/18/22 16:22
[2022-01-18] MEDS: Apixaban 5 MG TAB PO (20:38)
[2022-01-18] MEDS: Simvastatin 10 MG TAB PO (20:38)
[2022-01-18] MEDS: Magnesium Chloride 64 MG TABCR PO (20:38)
[2022-01-19] MEDS: Levothyroxine 25 MCG TAB PO (05:48)
[2022-01-19 06:56] LABS: Abs Immature Grans 0.13 10^3/uL (0.0-0.06); Absolute Basophil Count 0.07 10^3/uL (0.0-0.2); Absolute Eosinophil Count 0.34 10^3/uL (0.0-0.7); Absolute Lymphocyte Count 1.43 10^3/uL (1.2-3.4); Absolute Monocyte Count 0.99 10^3/uL (0.1-0.8); Absolute Neutrophil Count 6.69 10^3/uL (1.2-6.7); Basophils % 0.7; Eosinophils % 3.5; HCT 29.6 % (36.0-46.0); HGB 8.4 g/dL (11.2-15.7); Immature Grans % 1.3; Lymphocytes % 14.8; MCH 23.5 pg (27.0-33.0); MCHC 28.4 % (32.0-36.0); MCV 83 fL (80-95); MPV 8.8 fL (8.0-11.0); Monocytes % 10.3; Neutrophils % 69.4; Nucleated RBC 0.2 % (0.0-0.3); Platelet Count 490 10^3/uL (130-400); RBC 3.58 10^6/uL (3.93-5.22); RDW 20.7 % (11.7-14.6); RDW-SD 60.1 fL; WBC 9.65 10^3/uL (4.4-10.8)
[2022-01-19 07:13] LABS: Anion Gap 10.5 mmol/L (3-11); BUN 76 mg/dL (7-18); CO2 29.5 mmol/L (21.0-32.0); CREATININE 2.2 mg/dL (0.55-1.02); Calcium 9.3 mg/dL (8.5-10.1); Chloride 99 mmol/L (98-107); Estimated GFR 21.76 (mL/min/1.73m2); Glucose 140 mg/dL (74-106); Potassium 3.1 mmol/L (3.5-5.1); Sodium 139 mmol/L (136-145)
[2022-01-19 07:26] LABS: Anisocytosis 2+; Basophilic Stippling Present; Diff Comment RBC Morph Reviewed
[2022-01-19 07:27] LABS: Hypochromasia 1+; Microcytosis 1+; Poikilocytes 1+; Polychromasia Present
[2022-01-19 07:29] VITALS: BP 124/72; PULSE 60; RESP 14; TEMP 35.9; O2SAT 98
[2022-01-19] MEDS: Sucralfate 1 GM TAB PO ×4 (08:13→21:21)
[2022-01-19] MEDS: Allopurinol 100 MG TAB PO (08:13)
[2022-01-19] MEDS: Acetaminophen 325 MG TAB PO ×2 (08:13→23:18)
[2022-01-19] MEDS: Magnesium Chloride 64 MG TABCR PO ×2 (08:13→19:57)
[2022-01-19] MEDS: Metoprolol CR 50 MG TABCR PO (08:14)
[2022-01-19] MEDS: Empaglifozin 10 MG TAB PO (08:14)
[2022-01-19] MEDS: Amiodarone 200 MG TAB PO (08:14)
[2022-01-19] MEDS: Torsemide 20 MG TAB 40 MG PO (08:14)
[2022-01-19] MEDS: Apixaban 5 MG TAB PO (08:14)
[2022-01-19] MEDS: Potassium Chloride 20 MEQ TABCR PO ×2 (08:14→19:57)
--- NOTE | 2022-01-19 08:32 | PDOC.CMIN ---
- If Service Date Differs Date of service: 01/19/22 Time of Service: 08:32 Care Management Initial Assess REASON FOR HOSPITALIZATION:: CHF PAST MEDICAL HISTORY/PAST SURGICAL HISTORY:: All Active Problems . Malignant hypertensive heart and CKD (chronic kidney disease) stage IV (Acute). CHF (congestive heart failure) (Chronic). On amiodarone therapy (Acute). Obstructive sleep apnea syndrome (Chronic 09/26/12). DX SEP 2012 AT [facility]; wears CPAP machine. Diabetes mellitus (Chronic 11/07/12). Anemia (Chronic). Atrial fibrillation (Chronic 06/23/12). 02/19 start Tikosyn. 06/21 and 11/20 recurrent. 2012 ablation at [facility] [place]. echo 2012 at [facility] [place], normal LVEF and valves. 05/2021 RVR, s/p RODRIGUEZ CV and change to amiodarone. Essential hypertension (Acute 08/13/13). Gout (Chronic). intermittent, diet based. Hyperlipidemia (Acute). Hypothyroidism (Chronic 12/06/14). Acute UTI (Acute). Mitral stenosis with regurgitation (Chronic). Obesity, morbid (Chronic). a. BMI of 52. Medical History . Asthma. Bilateral bunions. Colon polyp (07/10/18). 12/19 tubular adenoma. Diabetic neuropathy. Diverticulosis. Former smoker (08/16/14). 5 pack yr history. Gastroesophageal reflux disease. GI bleed. had melena transiently in 02/2021; unable to be evaluated due to AV stenosis. 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 tachycardia. 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 Osteoarthritis. Peptic ulcer disease with hemorrhage. hx x 3. Pre-ulcerative corn or callous. Restless legs (01/18/13). sleep study. low iron (not anemic). Severe aortic stenosis. Surgical History . History of esophagogastroduodenoscopy (EGD) (~05/2018). 07/10/18. History of open sigmoidectomy. S/P colonoscopy (~07/10/18). Status post abdominal hysterectomy. Status post appendectomy. Status post total bilateral knee replacement. Status post transcatheter aortic valve replacement (TAVR) using bioprosthesis (~04/2021). Complicated by extravasation of contrast on iliofemoral angiography. 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 She is independent at baseline, drives and does not have any community services or use any assistive devices at this time. CURRENT FUNCTIONAL STATUS:: Maliha was sitting up in a chair when CM met with her. She was pleasant and agreeable to conversation. Maliha stated that she is feeling much better than when nighat admitted. She shared that the unit orf blood she received made all the difference. Maliha anticipates being discharged in the next day or two and denied the need for services. ADVANCE DIRECTIVES:: on file. Marcell FORRESTER Has patient been provided with info about the portal/API?: Yes Did the patient sign up for the portal?: Yes (previously) CODE STATUS:: Full Code INSURANCE COVERAGE / FINANCIAL ISSUES:: [employer] Medicare Advantage CURRENT HOME/COMMUNITY SERVICES/EQUIPMENT:: none currently PRIMARY CARE PHYSICIAN:: Kimberly Nicole POTENTIAL DISCHARGE NEEDS:: Follow up with PCP and plan of care PATIENT/FAMILY EDUCATION NEEDS:: Review of discharge instructions, limitations, follow up plan, discuss Ask Me Three. TRANSPORTATION:: via private vehicle with family PLAN:: Maliha will likely be discharged home with no new services. She will follow up with cardiology, her PCP and plan of care and transport with family.CM will continue to support Maliha and assess for discharge needs.
[2022-01-19] MEDS: Pantoprazole 40 MG VIAL IVP (11:16)
[2022-01-19] MEDS: Normal Saline Flush 10 ML SYR IVP ×2 (11:16→19:58)
--- NOTE | 2022-01-19 15:03 | CHAPLAIN ---
Maliha was sitting in the chair watching TV when I visited. She was quiet but responded to a few questions. She said she is from [facility], and has been in touch with family by phone. I explained my role and offered support.
[2022-01-19 15:49] VITALS: BP 106/63; PULSE 55; RESP 16; TEMP 36.2; O2SAT 96
--- NOTE | 2022-01-19 16:43 | W.PM.PROGNOT ---
Date of Service Date of service: 01/19/22 Time of Service: 16:43 Assessment and Plan Assessment and plan (1) CHF (congestive heart failure): Status: Chronic Assessment and plan: BNP is elevated; this may be, at least in part, due to her CKD. No evidence of pulmonary edema on CXR. Given IV lasix in the ED. Cont her routine torsemide 40mg daily and metolazone on Mondays and 1 hour prior to torsemide. Echocardiogram on 11/23/21 showed est. EF of 60%. Bioprosthetic aortic valce with peak gradient of 49, rhodes of 28mmHg. No aortic regurgitation. Moderate mitral regurgitation and stenosis. Qualifiers: Heart failure type: right-sided Heart failure chronicity: acute on chronic Qualified Code(s): I50.813 - Acute on chronic right heart failure (2) Obstructive sleep apnea syndrome: Status: Chronic Assessment and plan: With pulmonary hypertension. RVSP of 45.1 mmHg. Cont home CPAP. (3) Diabetes mellitus: Status: Chronic Assessment and plan: A1c 6.3 on . Diet controlled but was placed on Jardiance during admission in for CHF. Diabetic diet. (4) Essential hypertension: Status: Acute Assessment and plan: Cont metoprolol Cr 50mg daily. Monitor. (5) Asthma: Assessment and plan: No acute exacerbation. PRN proventil. Qualifiers: Asthma severity: mild Asthma persistence: intermittent Asthma complication type: uncomplicated Qualified Code(s): J45.20 - Mild intermittent asthma, uncomplicated (6) Atrial fibrillation: Status: Chronic Assessment and plan: Cont amiodarone, metoprolol and Eliquis. Qualifiers: Atrial fibrillation type: longstanding persistent Qualified Code(s): I48.11 - Longstanding persistent atrial fibrillation (7) Malignant hypertensive heart and CKD (chronic kidney disease) stage IV: Status: Acute Assessment and plan: Creatinine of 2.2 with Est. GFR of 21.76; at her baseline. Avoid hypotension and nephrotoxic agents. (8) Severe aortic stenosis: Assessment and plan: S/P TAVR. Cont Eliquis despite GI blood loss. No acute hemorrhagic loss noted. (9) GI bleed: Assessment and plan: With anemia; likely the etiology of her acute shortness of breath. Hgb 8.4 today; 8.6 yesterday after 1 unit of RBCs. Consulted gen surg for EGD. IV PPI and carafate. On eliquis; will not stop at this time. It's critical she remain on anticoagulant d/t her prosthetic aortic valve. Subjective Subjective Patient reports: no new complaints, feels better (moderately less weak and SOA), tolerating a regular diet and afebrile; denies nausea or vomiting Exam Narrative Exam Narrative: Sitting in chair. Appears tires. Conversant. Const General: cooperative and no acute distress Nutritional Appearance: obese Orientation: alert and oriented x3 Eyes General: appearance normal, both eyes and all related structures Conjunctivae: other (palpebral conjunctivae pale) Sclera: sclerae normal Resp Effort & Inspection: normal respiratory effort Auscultation: clear to auscultation bilaterally Cardio Rate: regular rate Rhythm: regular rhythm Heart Sounds: S1 normal and S2 normal GI Inspection: obesity Palpation: soft and tender in the epigastrum; with no rebound tenderness Auscultation: normal bowel sounds Skin General skin exam: no rashes or lesions noted Neuro General: no focal motor deficits Cognition: normal cognition Speech: speech normal Extrem General: no calf tenderness and edema Laterality: bilateral (tr to 1+) Psych Appearance: grossly normal Mental Status: mental status grossly normal Speech and Movement: speech and movement normal Affect: normal affect Thought Process: normal Thought Content: normal Insight: insight good Objective Last Vital Signs Temp 36.2 C L 01/19/22 15:49 Pulse 55 L 01/19/22 15:49 Resp 16 01/19/22 15:49 BP 106/63 01/19/22 15:49 Pulse Ox 96 01/19/22 15:49 Laboratory Results - last 24 hr 01/18/22 01/18/22 01/19/22 10:23 17:20 06:40 WBC RBC Hgb 8.6 L Hct 29.2 L MCV MCH MCHC RDW Plt Count MPV Immature Gran % Neutrophils % Lymphocytes % Monocytes % Eosinophils % Basophils % Nucleated RBC % Absolute Neutrophils Absolute Lymphocytes Absolute Monocytes Absolute Eosinophils Absolute Basophils RBC Morphology Polychromasia Hypochromasia Poikilocytosis Basophilic Stippling Anisocytosis Microcytosis Sodium 139 Potassium 3.1 L Chloride 99 Carbon Dioxide 29.5 Anion Gap 10.5 BUN 76 H Creatinine 2.2 H Estimated GFR/1.73 m2 21.76 Glucose 140 H Calcium 9.3 Antigen Identification Cancelled 01/19/22 06:40 WBC 9.65 RBC 3.58 L Hgb 8.4 L Hct 29.6 L MCV 83 MCH 23.5 L MCHC 28.4 L RDW 20.7 H Plt Count 490 H MPV 8.8 Immature Gran % 1.3 Neutrophils % 69.4 Lymphocytes % 14.8 Monocytes % 10.3 Eosinophils % 3.5 Basophils % 0.7 Nucleated RBC % 0.2 Absolute Neutrophils 6.69 Absolute Lymphocytes 1.43 Absolute Monocytes 0.99 H Absolute Eosinophils 0.34 Absolute Basophils 0.07 RBC Morphology See Below Polychromasia Present Hypochromasia 1+ Poikilocytosis 1+ Basophilic Stippling Present Anisocytosis 2+ Microcytosis 1+ Sodium Potassium Chloride Carbon Dioxide Anion Gap BUN Creatinine Estimated GFR/1.73 m2 Glucose Calcium Antigen Identification
--- NOTE | 2022-01-19 17:13 | W.SURGCON ---
Date of service: 01/19/22 Time of Service: 17:14 Assessment and Plan Assessment and plan (1) Malignant hypertensive heart and CKD (chronic kidney disease) stage IV: Status: Acute (2) CHF (congestive heart failure): Status: Chronic Qualifiers: Heart failure chronicity: acute on chronic Heart failure type: right-sided Qualified Code(s): I50.813 - Acute on chronic right heart failure (3) Obstructive sleep apnea syndrome: Status: Chronic (4) Diabetes mellitus: Status: Chronic (5) Anemia: Status: Chronic (6) Atrial fibrillation: Status: Chronic Qualifiers: Atrial fibrillation type: longstanding persistent Qualified Code(s): I48.11 - Longstanding persistent atrial fibrillation (7) Essential hypertension: Status: Acute (8) Gout: Status: Chronic (9) Hyperlipidemia: Status: Acute (10) Hypothyroidism: Status: Chronic (11) Mitral stenosis with regurgitation: Status: Chronic (12) Obesity, morbid: Status: Chronic (13) Peptic ulcer disease with hemorrhage: (14) longterm current use of antiarrhythmic medical therapy: (15) Former smoker: (16) Gastroesophageal reflux disease: (17) Diabetic neuropathy: (18) Asthma: Qualifiers: Asthma complication type: uncomplicated Asthma persistence: intermittent Asthma severity: mild Qualified Code(s): J45.20 - Mild intermittent asthma, uncomplicated (19) Iron deficiency anemia due to chronic blood loss: Status: Acute (20) Chronic iron deficiency anemia: Status: Acute (21) GI bleed: Assessment and plan: Patient has had a slow chronic GI bleed since December. She has had a history of peptic ulcer disease in the past. However this was attributed to NSAID use. She is not currently using any NSAIDs. She has been on Protonix. -She is on Eliquis for chronic A. fib. She is currently in sinus rhythm. -She is currently on Protonix and Carafate. She did have a heme positive stool today. -I did review the case with anesthesia and with Dr. Deutsch who is the working surgeon on 01/20. Neither think that the patient is medically stable for anesthesia at [facility]. Patient is a poor candidate for anesthesia because of her BMI and her multiple medical problems. I am not certain that the patient is a good candidate for chronic anticoagulation. She is on maximal medical therapy at this time- PPI & carafate. She is currently in sinus rhythm. And I recommend we do hold the anticoagulation for period of time. She is at high risk for either clotting or repeat bleeding. -We will give a dose of Venofer. When her iron was checked in December it was low at 11. 90 minutes was spent in consultation today. Discussing the case with Dr. Blanchard and flori MIDDLETON. As well as reviewing her [facility] chart/recent echo/labs/operative reports adn cardiology reports. This document was created using voice activated software and may contains errors History of Present Illness Narrative: pt was admitted w/ SOB. She was found to be anemic at &.6 and was transfused w/ 1 unit PRBC. She had a [place] in 05/28 at [facility] [place]. This was complicated by a dissection of the internal illiac- x2 stents were placed. As well as acute onset A. fib. She was cardioverted and placed on amiodarone and ellquis. She has a hx of GI bleed due to PUD. She has a hx of CRC polyps. She has a hx of falling. She was seen in [facility] [place] in 06/28 and was found to have CHF. She f/u w/ cardiology in [facility]. Cards has been working to find the correct regimen of diuretics to control CHF vs renal failure. Cr is 1.6 at this time. BNP- pd. CXR did not show fluid overload. Echocardiogram 11/23/21 showed est. EF of 60%.? Bioprosthetic aortic valve with peak gradient of 49, mean of 28mmHg.? No aortic regurgitation.? Moderate mitral regurgitation and stenosis. Patient states that she has been having vague epigastric abdominal pain and burning for several weeks. She has been having black tarry stools at home.. She has had the symptoms that have come and gone for some time. She is on Eliquis for the A. fib. She has been on Protonix since her admission in December. She is currently on Carafate and Protonix in the hospital. Per nursing stools have been heme positive. Patient states she still having epigastric pain. She has does not take aspirin or NSAIDs. She only takes Tylenol. She does not drink alcohol. She only drinks decaf coffee. She is on Protonix at home.` Airway is a Mallampati 4. 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 Diabetes mellitus (Chronic 11/07/12) Anemia (Chronic) Atrial fibrillation (Chronic 06/23/12) 02/19 start Tikosyn 06/21 and 11/20 recurrent 2012 ablation at [facility] [place] echo 2012 at [facility] [place], normal LVEF and valves 05/2021 RVR, s/p RODRIGUEZ CV and change to amiodarone. Essential hypertension (Acute 08/13/13) Gout (Chronic) intermittent, diet based. Hyperlipidemia (Acute) Hypothyroidism (Chronic 12/06/14) Acute UTI (Acute) Mitral stenosis with regurgitation (Chronic) Obesity, morbid (Chronic) a. BMI of 52 Medical History Asthma Bilateral bunions Colon polyp (07/10/18) 12/19 tubular adenoma Diabetic neuropathy Diverticulosis Former smoker (08/16/14) 5 pack yr history Gastroesophageal reflux disease GI bleed had melena transiently in 02/2021; unable to be evaluated due to AV stenosis. 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 Son No problems noted. 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 Pets and animals: Yes Pets and animals: dog(s) Sexually active: Yes Do you think of yourself as: straight/heterosexual Current gender identity: female What is your relationship status?: How often do you talk on the phone with friends or family?: twice per week How often do you get together with friends or relatives?: three or more times per week How often do you attend buddhism or denominational services?: 4 or more times per year Do you belong to any clubs or organized social groups?: no Panel score (0-1 are the most socially isolated patients): 3 What type of physical activity do you participate in: walking Duration: < 15 minutes/day Frequency: 1-2 times per week Radha/Sikhism: Muslim Special radha needs: No Seatbelt use: always Drive intox or ride w/intox 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 She was in sinus in the ER as well. GI Rectal Exam - female: heme positive stool Other: Abdomen is morbidly obese. She points to the midepigastric area where she has been having pain. It is minimal today. She has been able to tolerate p.o.'s. Extrem Other: Chronic lower extremity edema Results Last Vital Signs Temp 36.2 C L 01/19/22 15:49 Pulse 55 L 01/19/22 15:49 Resp 16 01/19/22 15:49 BP 106/63 01/19/22 15:49 Pulse Ox 96 01/19/22 15:49 Labs Result diagrams: 01/19/22 06:40 01/19/22 06:40 Labs: Laboratory Results - last 24 hr 01/18/22 01/19/22 01/19/22 17:20 06:40 06:40 WBC 9.65 RBC 3.58 L Hgb 8.6 L 8.4 L Hct 29.2 L 29.6 L MCV 83 MCH 23.5 L MCHC 28.4 L RDW 20.7 H Plt Count 490 H MPV 8.8 Immature Gran % 1.3 Neutrophils % 69.4 Lymphocytes % 14.8 Monocytes % 10.3 Eosinophils % 3.5 Basophils % 0.7 Nucleated RBC % 0.2 Absolute Neutrophils 6.69 Absolute Lymphocytes 1.43 Absolute Monocytes 0.99 H Absolute Eosinophils 0.34 Absolute Basophils 0.07 RBC Morphology See Below Polychromasia Present Hypochromasia 1+ Poikilocytosis 1+ Basophilic Stippling Present Anisocytosis 2+ Microcytosis 1+ Sodium 139 Potassium 3.1 L Chloride 99 Carbon Dioxide 29.5 Anion Gap 10.5 BUN 76 H Creatinine 2.2 H Estimated GFR/1.73 m2 21.76 Glucose 140 H Calcium 9.3
[2022-01-19] MEDS: Simvastatin 10 MG TAB PO (19:57)
[2022-01-19 21:00] VITALS: O2SAT 92
[2022-01-19 21:27] VITALS: BP 118/64; PULSE 64; RESP 19; TEMP 36.6; O2SAT 92
[2022-01-20] VITALS (15 sets, daily range): BP systolic 97–144; BP diastolic 47–70; PULSE 52–84; RESP 14–20; TEMP 35.2–36.9; O2SAT 90–100
[2022-01-20] MEDS: IRON SUCROSE COMPLEX 200 MG in Normal Saline 100 ML 400 MG IVPB (04:47)
[2022-01-20] MEDS: Normal Saline Flush 10 ML SYR IVP ×3 (04:47→16:20)
[2022-01-20] MEDS: Levothyroxine 25 MCG TAB PO (04:55)
[2022-01-20 06:43] LABS: HCT 28.9 % (36.0-46.0); HGB 8.2 g/dL (11.2-15.7)
[2022-01-20 07:07] LABS: Anion Gap 11.8 mmol/L (3-11); CO2 29.2 mmol/L (21.0-32.0); CREATININE 2.7 mg/dL (0.55-1.02); Calcium 9.6 mg/dL (8.5-10.1); Chloride 98 mmol/L (98-107); Estimated GFR 17.18 (mL/min/1.73m2); Glucose 170 mg/dL (74-106); NT-proBNP 769 pg/mL (<300); Potassium 3.3 mmol/L (3.5-5.1); Sodium 139 mmol/L (136-145)
[2022-01-20 07:10] LABS: BUN 83 mg/dL (7-18)
[2022-01-20 08:07] LABS: Iron 304 ug/dL (50-170); Total Iron Binding Capacity 562 ug/dL (250-450); Transferrin Sat 54 % (15-50)
[2022-01-20] MEDS: Amiodarone 200 MG TAB PO (11:00)
[2022-01-20] MEDS: Metoprolol CR 50 MG TABCR PO (11:00)
[2022-01-20] MEDS: Empaglifozin 10 MG TAB PO (11:00)
[2022-01-20] MEDS: Allopurinol 100 MG TAB PO (11:00)
[2022-01-20] MEDS: Torsemide 20 MG TAB 40 MG PO (11:00)
[2022-01-20] MEDS: Potassium Chloride 20 MEQ TABCR PO ×2 (11:00→20:08)
[2022-01-20] MEDS: Sucralfate 1 GM TAB PO ×3 (11:00→21:32)
[2022-01-20] MEDS: Magnesium Chloride 64 MG TABCR PO ×2 (11:00→20:08)
--- NOTE | 2022-01-20 11:43 | PDOC.CMPRO ---
- If Service Date Differs Date of service: 01/20/22 Time of Service: 11:43 Care Management Progress Note S/O:Maliha was lying in bed when CM met with her. She was waiting to receive another unit of blood. She explained that it usually takes a while because she requires special blood that is sent from [place]. Maliha informed CM that she anticipates being discharged home tomorrow. Referrals for a GI consult were sent to [facility], [facility] and [facility]. The source for Maliha's anemia and GI bleeding has not been determined yet and will likely require an EGD but because of her comorbidities, a tertiary care hospital is preferred. [facility] responded with a request for additional information, which was sent. A: Maliha is a 76 year old woman admitted on 01/18/22 with a GI Bleed P:Maliha will likely be discharged home with no new services. She will follow up with cardiology, GI, her PCP and plan of care and transport with family.CM will continue to support Maliha and assess for discharge needs.
[2022-01-20] MEDS: Pantoprazole 40 MG VIAL IVP (12:41)
[2022-01-20 14:18] LABS: Ferritin 31 ng/mL (8-252)
[2022-01-20] MEDS: Acetaminophen 325 MG TAB PO (15:32)
--- NOTE | 2022-01-20 16:38 | CHAPLAIN ---
Maliha was sitting up in the chair when I visited. She is quite bored and said she hopes to be discharged tomorrow. From Care Management notes, she said later in the day that she will be discharged tomorrow.
--- NOTE | 2022-01-20 17:10 | PGE_ITS ---
Date of Service Date of service: 01/20/22 Time of Service: 17:11 Assessment and Plan Assessment and plan (1) CHF (congestive heart failure): Status: Chronic Assessment and plan: BNP is elevated; this may be, at least in part, due to her CKD. No evidence of pulmonary edema on CXR. Given IV lasix in the ED. Has been on her home torsemide 40mg daily and metolazone on Mondays and 1 hour prior to torsemide. Will hold torsemide given mild increase in creatinine (that had improved). Possibly some overdiureses. Echocardiogram on 11/23/21 showed est. EF of 60%. Bioprosthetic aortic valce with peak gradient of 49, rhodes of 28mmHg. No aortic regurgitation. Moderate mitral regurgitation and stenosis. Qualifiers: Heart failure type: right-sided Heart failure chronicity: acute on chronic Qualified Code(s): I50.813 - Acute on chronic right heart failure (2) Obstructive sleep apnea syndrome: Status: Chronic Assessment and plan: With pulmonary hypertension. RVSP of 45.1 mmHg. Cont home CPAP. (3) Diabetes mellitus: Status: Chronic Assessment and plan: A1c 6.3 on . Diet controlled but was placed on Jardiance during admission in for CHF. Diabetic diet. (4) Essential hypertension: Status: Acute Assessment and plan: Cont metoprolol Cr 50mg daily. Monitor. (5) Asthma: Assessment and plan: No acute exacerbation. PRN proventil. Qualifiers: Asthma severity: mild Asthma persistence: intermittent Asthma complication type: uncomplicated Qualified Code(s): J45.20 - Mild intermittent asthma, uncomplicated (6) Atrial fibrillation: Status: Chronic Assessment and plan: Cont amiodarone, metoprolol and Eliquis. Qualifiers: Atrial fibrillation type: longstanding persistent Qualified Code(s): I48.11 - Longstanding persistent atrial fibrillation (7) Malignant hypertensive heart and CKD (chronic kidney disease) stage IV: Status: Acute Assessment and plan: Creatinine of 2.2 with Est. GFR of 21.76; at her baseline. Avoid hypotension and nephrotoxic agents. (8) Severe aortic stenosis: Assessment and plan: S/P TAVR. (9) GI bleed: Assessment and plan: With anemia; likely the etiology of her acute shortness of breath. Hgb 8.6 after transfusion. Has now decreased to 8.4 then 8.2 Transfuse another unit of pRBCs H/H in AM. Consulted gen surg for EGD. Given her significant comorbidities, general surgery will not perform EGD at this facility. Referrals for outpt GI consult sent to [facility], [facility] [facility]. IV PPI and carafate. On eliquis;does not actually require this for heart valve. On eliquis for afib only. Subjective Subjective Patient reports: no new complaints, shortness of breath (Improved) and afebrile; denies diarrhea, nausea or vomiting Exam Narrative Exam Narrative: Sitting in chair. Pleasant and cooperative. Const General: cooperative and no acute distress Nutritional Appearance: obese Orientation: alert and oriented x3 Eyes General: appearance normal, both eyes and all related structures Conjunctivae: other (palpebral conjunctivae pale) Sclera: sclerae normal Resp Effort & Inspection: normal respiratory effort Auscultation: clear to auscultation bilaterally Cardio Rate: regular rate Rhythm: regular rhythm Heart Sounds: S1 normal and S2 normal GI Inspection: obesity Palpation: soft and tender in the epigastrum; with no rebound tenderness Auscultation: normal bowel sounds Skin General skin exam: no rashes or lesions noted Neuro General: no focal motor deficits Cognition: normal cognition Speech: speech normal Extrem General: no calf tenderness and edema (trace) Laterality: bilateral (tr to 1+) Psych Appearance: grossly normal Mental Status: mental status grossly normal Speech and Movement: speech and movement normal Affect: normal affect Thought Process: normal Thought Content: normal Insight: insight good Objective Last Vital Signs Temp 35.5 C L 01/20/22 16:46 Pulse 54 L 01/20/22 16:46 Resp 18 01/20/22 16:46 BP 103/49 L 01/20/22 16:46 Pulse Ox 92 01/20/22 16:46 Laboratory Results - last 24 hr 01/18/22 01/20/22 01/20/22 10:23 06:20 06:20 Hgb Hct Sodium Potassium Chloride Carbon Dioxide Anion Gap BUN Creatinine Estimated GFR/1.73 m2 Glucose Calcium Iron 304 H TIBC 562 H Transferrin % Sat 54 H Ferritin 31 NT-Pro-B Natriuret Pep Patient ABO/Rh A Negative Antibody Screen POSITIVE Antibody Identification Anti-Fya Antigen Identification Fya Antigen - NEGATIVE Crossmatch See Detail 01/20/22 01/20/22 06:20 06:20 Hgb 8.2 L Hct 28.9 L Sodium 139 Potassium 3.3 L Chloride 98 Carbon Dioxide 29.2 Anion Gap 11.8 H BUN 83 H* Creatinine 2.7 H Estimated GFR/1.73 m2 17.18 Glucose 170 H Calcium 9.6 Iron TIBC Transferrin % Sat Ferritin NT-Pro-B Natriuret Pep 769 H Patient ABO/Rh Antibody Screen Antibody Identification Antigen Identification Crossmatch
[2022-01-20] MEDS: Simvastatin 10 MG TAB PO (20:08)
[2022-01-20] MEDS: Melatonin 3 MG TAB PO (21:32)
[2022-01-21 04:09] VITALS: BP 118/53; PULSE 60; RESP 17; TEMP 36.5; O2SAT 94
[2022-01-21] MEDS: Levothyroxine 25 MCG TAB PO (05:20)
[2022-01-21 06:55] LABS: HGB 8.8 g/dL (11.2-15.7)
[2022-01-21 07:06] LABS: Anion Gap 10.3 mmol/L (3-11); BUN 74 mg/dL (7-18); CO2 28.7 mmol/L (21.0-32.0); CREATININE 2.3 mg/dL (0.55-1.02); Calcium 9.1 mg/dL (8.5-10.1); Chloride 100 mmol/L (98-107); Estimated GFR 20.67 (mL/min/1.73m2); Glucose 138 mg/dL (74-106); Potassium 3.2 mmol/L (3.5-5.1); Sodium 139 mmol/L (136-145)
[2022-01-21 07:25] VITALS: BP 136/79; PULSE 61; RESP 18; TEMP 36.1; O2SAT 91
[2022-01-21] MEDS: Sucralfate 1 GM TAB PO ×2 (07:58→11:58)
[2022-01-21] MEDS: Potassium Chloride 20 MEQ TABCR PO (07:58)
[2022-01-21] MEDS: Metoprolol CR 50 MG TABCR PO (07:58)
[2022-01-21] MEDS: Magnesium Chloride 64 MG TABCR PO (07:58)
[2022-01-21] MEDS: Amiodarone 200 MG TAB PO (07:58)
[2022-01-21] MEDS: Empaglifozin 10 MG TAB PO (07:59)
[2022-01-21] MEDS: Allopurinol 100 MG TAB PO (07:59)
[2022-01-21] MEDS: Polyethylene Glycol 3350 17 GM PACKET PO (08:10)
[2022-01-21] MEDS: Pantoprazole 40 MG VIAL IVP (11:59)
[2022-01-21] MEDS: Normal Saline Flush 10 ML SYR IVP (11:59)
--- NOTE | 2022-01-21 14:46 | DSE_ITS ---
Date of service: 01/21/22 Time of Service: 14:50 DS: Diagnosis Discharge Diagnosis (1) CHF (congestive heart failure): Status: Chronic (2) Obstructive sleep apnea syndrome: Status: Chronic (3) Diabetes mellitus: Status: Chronic (4) Essential hypertension: Status: Acute (5) Asthma: (6) Atrial fibrillation: Status: Chronic (7) Malignant hypertensive heart and CKD (chronic kidney disease) stage IV: Status: Acute (8) Severe aortic stenosis: (9) GI bleed: Discharge Plan Disposition Patient Disposition: HOME Condition: Stable Discharge Details Reason For Visit: Gastrointestinal Bleed Admit Date/Time: 01/18/22 10:33 Admit Provider: Mervin Monk Attending Provider: Mervin Monk Primary Care Provider: Kimberly Nicole Hospital Course Hospital Course: This is a 76 yo female with a PMH of CHF, CKD, LAI, DM, Afib, Severe aortic stenosis, s/p TAVR, anticoagulation with Eliquis, sigmoidectomy, peptic ulcerations, GI bleed, asthma, RLS. She presented to the ED d/t increasing shortness of breath over appx 2 days.? + BETTS and orthopnea.? She had noted increased pedal edema.? No CP/palpitations, fever/chills/cough.? No abd pain/N/V. ED eval showed a Hgb of 7.6 ( 9.8 on 12/22/21). CXR w/o acute findings.? WBC count normal.? NTProBNP of 1404 (2478 on 11/20/21 during previous admission > 797 on 11/23 after tx).No evidence of pulmonary edema on CXR. She had been on a PPI and carafate for previous GI bleed.? Denies any use of NSAIDS or steroids. Admitted for transfusion of 1 unit pRBCs and further evaluation and monitoring. Echocardiogram on 11/23/21 showed est. EF of 60%.? Bioprosthetic aortic valce with peak gradient of 49, rhodes of 28mmHg.? No aortic regurgitation.? Moderate mitral regurgitation and stenosis. After 1 unit pRBCs transfused her hgb increased to 8.6. It then declined to 8.2. Another unit of pRBCs transfused and her increased to 8.8. General surgery consulted for evaluation. Given her significant co-morbidities they recommended she have an EGD at a tertiary care center. A referral was sent to [facility] [place] She will have a CBC drawn on Tuesday, 01/25. PCP follow up in 1 week. Home Meds and New Rx's Prescriptions: Continued albuterol sulfate 90 mcg/actuation HFA aerosol inhaler 2 puff IH QID PRN metoprolol succinate 100 mg tablet extended release 24 hr 50 mg PO DAILY metolazone 5 mg tablet 5 mg PO .COMPLEX Qty: 60 5RF Rx Instructions: 5 mg PO As directed; Take 1 pill Mondays and , 1 hour prior to Lasix amiodarone 400 mg tablet 200 mg PO DAILY levothyroxine 25 mcg tablet 25 mcg PO DAILY acetaminophen [Tylenol] 325 mg tablet 325 - 650 mg PO Q4H PRN PRN (Reason: pain) Qty: 30 0RF magnesium chloride 64 mg tablet,delayed release (DR/EC) 64 mg PO BID Qty: 180 3RF Eliquis 5 mg tablet 5 mg PO BID Qty: 60 11RF allopurinol 100 mg tablet 100 mg PO DAILY Qty: 90 1RF colchicine 0.6 mg tablet 0.6 mg PO DAILY PRN (Reason: gout) Qty: 20 3RF simvastatin 10 mg tablet 10 mg PO QPM Qty: 90 3RF torsemide 20 mg tablet 40 mg PO DAILY Qty: 60 1RF Jardiance 10 mg Tablet 10 mg PO QAM Qty: 30 1RF sucralfate 1 gram Tablet 1 g PO AC & HS Qty: 120 1RF potassium chloride 20 mEq Tablet,Er Particles/Crystals 20 meq PO BIDWMEAL Qty: 60 1RF pantoprazole 40 mg Tablet,Delayed Release (Dr/Ec) 40 mg PO DAILY Qty: 30 1RF No Action (DME) blood sugar diagnostic Strip See Dose Instructions .ROUTE .MEDSUPPLY Qty: 400 3RF Dose Instruction: As directed Rx Instructions: use tid and prn.Accu-Chek Smart View Test Strip (DME) diabetic extra depth shoes See Rx Instructions .Route .MEDSUPPLY Qty: 1 0RF Rx Instructions: As directed Discharge Instructions Instructions: Gastrointestinal Bleeding (DC) Stand Alone Forms: Nursing Discharge Form Referrals: [facility] [Outside] (Gastroenterology will be reaching out to you with an appt with your procedure) Kimberly Nicole MD [Primary Care Provider] - 01/27/22 1:00 pm Bart Pereira [ [facility] STAFF PHYSICIAN] - (GI evaluation for recurring GI bleeds. H/O PUD. ) Activity:: Activity as Tolerated Equipment/Supplies:: No Equipment Needed Diet:: Resume usual home diet Discharge Orders Discharge Orders: Discharge Order (Routine); Ordered 01/21/22 Ordered By: Mervin Monk Other Ambulatory Orders: Complete Blood Count w/Diff (Routine) Timeframe: [id number] Location: None Selected Ordered By: Mervin Monk DS: Summary Time Spent with Patient providing and/or coordinating discharge services: Greater than 30 minutes Status at Discharge Functional status at discharge: independent ambulation Overall status at discharge: patient is progressing back to baseline Mental Status: mental status grossly normal Speech and Movement: speech and movement normal Mood: congruent mood Affect: normal affect Exam Narrative Exam Narrative: Lying in bed. Pleasant and conversant. Const General: cooperative and no acute distress Nutritional Appearance: obese Orientation: alert and oriented x3 Eyes General: appearance normal, both eyes and all related structures Conjunctivae: other (palpebral conjunctivae pale) Sclera: sclerae normal Resp Effort & Inspection: normal respiratory effort Auscultation: clear to auscultation bilaterally Cardio Rate: regular rate Rhythm: regular rhythm Heart Sounds: S1 normal and S2 normal GI Inspection: obesity Palpation: soft and tender in the epigastrum; with no rebound tenderness Auscultation: normal bowel sounds Skin General skin exam: no rashes or lesions noted Neuro General: no focal motor deficits Cognition: normal cognition Speech: speech normal Extrem General: no calf tenderness and edema (trace) Laterality: bilateral (tr to 1+) Psych Appearance: grossly normal Mental Status: mental status grossly normal Speech and Movement: speech and movement normal Mood: congruent mood Affect: normal affect Thought Process: normal Thought Content: normal Insight: insight good DS: Data Vitals/I&O Vitals and I&O: Vital Signs Temperature 36.1 C L 01/21/22 07:25 Temperature Source Skin 01/21/22 07:25 Pulse 61 01/21/22 07:25 Pulse Rhythm Regular 01/21/22 12:03 Pulse 67 01/18/22 10:50 Respiratory Rate 18 01/21/22 07:25 Respiratory Effort 01/21/22 12:03 Respiratory Depth Normal 01/21/22 12:03 Respiratory Pattern Normal 01/21/22 12:03 Blood Pressure 136/79 01/21/22 07:25 Blood Pressure Mean 58 01/18/22 10:46 Blood Pressure Position Sitting 01/18/22 05:41 Pulse Oximetry 91 L 01/21/22 07:25 Oxygen Delivery Method Room Air 01/21/22 07:25 Oxygen Flow Rate 0 01/21/22 07:25 Pain Level 3 01/21/22 07:25 Comment 01/19/22 15:40 Intake & Output 01/20/22 01/21/22 01/21/22 23:59 11:59 23:59 Intake Total 621 / 741 480 / 1200 720 / 1200 Output Total 2400 / 3220 1100 / 1100 Balance -1779 / -2479 -620 / 100 720 / 100 Weight 103.1 kg Intake: Oral 480 / 1200 720 / 1200 Blood Product 571 / 571 Rbc Leuko Reduced Unit 571 / 571 [id number] Other 50 / 50 Rbc Leuko Reduced Unit 50 / 50 [id number] Output: Urine 2400 / 3220 1100 / 1100 Other: Urine Color Yellow Yellow Urine Appearance Clear Clear Clear Urine Odor Normal None Stool Size Moderate Stool Characteristics Hard Black Voiding Methods Toilet Toilet Data Completed and Pending Labs on day of discharge: Labs from last 24 hours 01/21/22 01/21/22 01/18/22 06:40 06:40 10:23 Hgb 8.8 L Hct 29.0 L Sodium 139 Potassium 3.2 L Chloride 100 Carbon Dioxide 28.7 Anion Gap 10.3 BUN 74 H Creatinine 2.3 H Estimated GFR/1.73 m2 20.67 Glucose 138 H Calcium 9.1 Patient ABO/Rh A Negative Antibody Screen POSITIVE Antibody Identification Anti-Fya Antigen Identification Fya Antigen - NEGATIVE Crossmatch See Detail PFSH All Active Problems Chronic iron deficiency anemia (Acute) Iron deficiency anemia due to chronic blood loss (Acute) Malignant hypertensive heart and CKD (chronic kidney disease) stage IV (Acute) CHF (congestive heart failure) (Chronic) On amiodarone therapy (Acute) Obstructive sleep apnea syndrome (Chronic 09/26/12) DX SEP 2012 AT [facility]; wears CPAP machine. Diabetes mellitus (Chronic 11/07/12) Anemia (Chronic) Atrial fibrillation (Chronic 06/23/12) 02/19 start Tikosyn 06/21 and 11/20 recurrent 2012 ablation at [facility] [place] 2012 at [facility] [place], normal LVEF and valves 05/2021 RVR, s/p RODRIGUEZ CV and change to amiodarone. Essential hypertension (Acute 08/13/13) Gout (Chronic) intermittent, diet based. Hyperlipidemia (Acute) Hypothyroidism (Chronic 12/06/14) Acute UTI (Acute) Mitral stenosis with regurgitation (Chronic) Obesity, morbid (Chronic) a. BMI of 52 Medical History Asthma Bilateral bunions Colon polyp (07/10/18) 12/19 tubular adenoma Diabetic neuropathy Diverticulosis Former smoker (08/16/14) 5 pack yr history Gastroesophageal reflux disease GI bleed had melena transiently in 02/2021; unable to be evaluated due to AV stenosis. 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 2 covered stents placed in the artery EIA extending into the R BOARD WINDER Family History Mother , 65 Thoracic aneurysm, ruptured Personal history of malignant neoplasm LYMPHOMA Father , 64 Heart disease Myocardial infarction Stroke Maternal Grandfather , 80 Heart disease Stroke Paternal Grandfather , 65 Heart disease Maternal Grandmother , 83 Heart disease Paternal Grandmother , 40 Cancer Son No problems noted. Son No problems noted. Social History Smoking/Tobacco Use Status: Former Tobacco Use Quit Date: 08/08/72 Tobacco: How many years used: 4 Second Hand Exposure: No Smoking risk assessment performed?: Yes Alcohol Intake: never Drug use: Never Substance use type: does not use Caregiver/Support person: No Household members: spouse Housing: house Communication Needs: None current occupation: [employer] Pets and animals: Yes Pets and animals: dog(s) Sexually active: Yes Do you think of yourself as: straight/heterosexual Current gender identity: female What is your relationship status?: How often do you talk on the phone with friends or family?: twice per week How often do you get together with friends or relatives?: three or more times per week How often do you attend synagogue or adventist services?: 4 or more times per year Do you belong to any clubs or organized social groups?: no Panel score (0-1 are the most socially isolated patients): 3 What type of physical activity do you participate in: walking Duration: < 15 minutes/day Frequency: 1-2 times per week Radha/Islam: Samaritan Special radha needs: No Seatbelt use: always Drive intox or ride w/intox driver's license examiner: No Do you feel safe at home: Yes Do you feel safe in your relationship?: Yes
--- NOTE | 2022-01-21 15:09 | PDOC.CMDIS ---
- If Service Date Differs Date of service: 01/21/22 Time of Service: 15:10 LACE Index Scoring Tool - Questions: Length of Stay (in days): 3 Acuity (Admit via E.D.?): Yes Comorbidities: Diabetes w/o Complication E.D. Visits: 6 - Answers: Total Score: 11 Risk of Readmission: High Risk Care Management Discharge Reason for Hospitalization: CHF Discharge Plan: Maliha will discharge home with no new services. She will follow up with cardiology, [facility] (MICHELLE AA faxed referral), her PCP and plan of care and transport with family. Patient/Family Education Needs: Review of discharge instructions, limitations, follow up plan, discuss Ask Me Three.
== END 2022-01-21 15:52 | disposition home or self-care (01) | DRG 378 ==
LOC: ER 10:54 → MS 11:17
PROVIDERS: Emergency Medicine; Surgery; Admitting Provider Family Medicine; Emergency Provider Student in an Organized Health Care Education/Training Program; PCP Family Medicine; Visit Provider Family Medicine
DX: K27.4 Chronic or unspecified peptic ulcer, site unspecified, with hemorrhage (principal); I13.0 Hypertensive heart and chronic kidney disease with heart failure and stage 1 through stage 4 chronic kidney disease, or unspecified chronic kidney disease; N18.4 Chronic kidney disease, stage 4 (severe); Z68.42 Body mass index [BMI] 45.0-49.9, adult; I24.8 Other forms of acute ischemic heart disease; I48.11 Longstanding persistent atrial fibrillation; D50.0 Iron deficiency anemia secondary to blood loss (chronic); D50.9 Iron deficiency anemia, unspecified; I50.813 Acute on chronic right heart failure; G47.33 Obstructive sleep apnea (adult) (pediatric); E78.5 Hyperlipidemia, unspecified; E03.9 Hypothyroidism, unspecified; E66.01 Morbid (severe) obesity due to excess calories; G25.81 Restless legs syndrome; I34.0 Nonrheumatic mitral (valve) insufficiency; E11.40 Type 2 diabetes mellitus with diabetic neuropathy, unspecified; I44.7 Left bundle-branch block, unspecified; J45.20 Mild intermittent asthma, uncomplicated; M10.9 Gout, unspecified; Z87.11 Personal history of peptic ulcer disease; Z79.01 Long term (current) use of anticoagulants; Z79.84 Long term (current) use of oral hypoglycemic drugs; Z96.653 Presence of artificial knee joint, bilateral; Z90.49 Acquired absence of other specified parts of digestive tract; Z95.3 Presence of xenogenic heart valve; Z87.891 Personal history of nicotine dependence; Z79.899 Other long term (current) drug therapy; E11.22 Type 2 diabetes mellitus with diabetic chronic kidney disease
CPT/HCPCS: 36415; 36416; 80048; 80053; 82962; 86850; 86900; 86901; 86920; 87635; 93005; 96374; 99223; 99285; 71045; 81003; 82728; 83540; 83550; 83735; 83880; 84439; 84443; 84484; 85014; 85018; 85025; 85379; 86870; 86902; 93010; 99232; 99239; J1756; J1940; P9016

== ENCOUNTER 2022-01-23 09:10 | Emergency (ER) | payer MEDICARE, SELFPAY ==
[2022-01-23 09:14] VITALS: BP 123/35; PULSE 69; RESP 18; TEMP 36.6; O2SAT 96
[2022-01-23] MEDS: Lidocaine/Epinephri/Tetracaine Topical Gel 3 ML TP (09:38)
--- NOTE | 2022-01-23 09:49 | ED.GENADUL_ITS ---
Discharge Plan Disposition Patient Disposition: HOME Condition: Stable Discharge Details Clinical Impression: Thrombophlebitis of arm, right, Thrombophlebitis of arm, left Primary Care Provider: Kimberly Nicole ED Provider: Juan Arredondo Home Meds and New Rx's Prescriptions: New cephalexin 500 mg capsule 500 mg PO QID Qty: 39 0RF Continued albuterol sulfate 90 mcg/actuation HFA aerosol inhaler 2 puff IH QID PRN metoprolol succinate 100 mg tablet extended release 24 hr 50 mg PO DAILY metolazone 5 mg tablet 5 mg PO .COMPLEX Qty: 60 5RF Rx Instructions: 5 mg PO As directed; Take 1 pill Mondays and , 1 hour prior to Lasix amiodarone 400 mg tablet 200 mg PO DAILY levothyroxine 25 mcg tablet 25 mcg PO DAILY acetaminophen [Tylenol] 325 mg tablet 325 - 650 mg PO Q4H PRN PRN (Reason: pain) Qty: 30 0RF (DME) blood sugar diagnostic Strip See Dose Instructions .ROUTE .MEDSUPPLY Qty: 400 3RF Dose Instruction: As directed Rx Instructions: use tid and prn.Accu-Chek Smart View Test Strip magnesium chloride 64 mg tablet,delayed release (DR/EC) 64 mg PO BID Qty: 180 3RF Eliquis 5 mg tablet 5 mg PO BID Qty: 60 11RF allopurinol 100 mg tablet 100 mg PO DAILY Qty: 90 1RF colchicine 0.6 mg tablet 0.6 mg PO DAILY PRN (Reason: gout) Qty: 20 3RF simvastatin 10 mg tablet 10 mg PO QPM Qty: 90 3RF torsemide 20 mg tablet 40 mg PO DAILY Qty: 60 1RF (DME) diabetic extra depth shoes See Rx Instructions .Route .MEDSUPPLY Qty: 1 0RF Rx Instructions: As directed Jardiance 10 mg Tablet 10 mg PO QAM Qty: 30 1RF sucralfate 1 gram Tablet 1 g PO AC & HS Qty: 120 1RF potassium chloride 20 mEq Tablet,Er Particles/Crystals 20 meq PO BIDWMEAL Qty: 60 1RF pantoprazole 40 mg Tablet,Delayed Release (Dr/Ec) 40 mg PO DAILY Qty: 30 1RF Discharge Instructions Instructions: Superficial Thrombophlebitis (ED) Additional Instructions: Please take full course of antibiotic as prescribed. Please follow-up with your primary care physician. Call on Tuesday to arrange timely follow-up next week. Return to the emergency department immediately for any worsening or new concerning symptoms. Please follow-up as directed on discharge from recent inpatient admission. Referrals: Kimberly Nicole MD [Primary Care Provider] - Discharge Data Discharge Date/Time-TO BE ENTERED AT DEPARTURE: 01/23/22 10:15 Medical Decision Making 76-year-old female with history of PMH of CHF, CKD, LAI, DM, atrial fibrillation, Severe aortic stenosis, s/p TAVR, anticoagulation with Eliquis, sigmoidectomy, peptic ulcerations, GI bleed, asthma here 1 day status post discharge from intpatient hospitalization, treated for CHF and GI bleed, now with erythema and pustules at prior venipuncture sites bilateral antecubital fossa. No fever or systemic symptoms. Concern for thrombophlebitis. Superficial pustule left antecubital fossa was punctured with 11 blade and tiny purulent discharge expressed. I will start keflex (patient has tolerated in the past) and recommended warm compresses. Plan for outpatient follow-up with PCP. HPI General Mode of arrival: ambulatory . Date/Time Provider Initiated Documentation: 01/23/22 09:11 . Limitations to Documentation: no limitations . Information obtained by: patient . HPI Narrative: 76-year-old female with multiple medical problems, recently hospitalized for CHF and GI bleed, discharged on 01/21/2022, here today with chief complaint of rash. Patient notes redness and pustule at prior IV sites bilateral antecubital. Rash started yesterday and has persisted. Pustule ruptured on right, still intact on left. No modifiers. No associated fever. Patient is concerned for infection. Patient said he was initially in her right arm and this infiltrated and then she had subsequent IV placed left arm. Related Data Home Medications Medication Instructions Recorded Confirmed albuterol sulfate 90 mcg/actuation 2 puff inhalation QID PRN 04/17/18 01/23/22 aerosol inhaler acetaminophen 325 mg tablet 325 - 650 mg PO Q4H PRN PRN pain 05/24/18 01/23/22 (Tylenol) #30 tabs blood sugar diagnostic #400 ea 07/29/20 01/23/22 magnesium chloride 64 mg 64 mg PO BID #180 tabs 04/07/21 01/23/22 (magnesium chloride) tablet,delayed release metoprolol succinate 100 mg 50 mg PO DAILY 04/29/21 01/23/22 tablet,extended release 24 hr amiodarone 400 mg tablet 200 mg PO DAILY 06/24/21 01/23/22 apixaban 5 mg tablet (Eliquis) 5 mg PO BID #60 tabs 07/15/21 01/23/22 allopurinol 100 mg tablet 100 mg PO DAILY #90 tabs 08/13/21 01/23/22 levothyroxine 25 mcg tablet 25 mcg PO DAILY 08/21/21 01/23/22 colchicine 0.6 mg tablet 0.6 mg PO DAILY PRN gout #20 tabs 10/15/21 01/23/22 metolazone 5 mg tablet 5 mg PO .COMPLEX #60 tabs 10/27/21 01/23/22 empagliflozin 10 mg tablet 10 mg PO QAM #30 tabs 11/23/21 01/23/22 (Jardiance) pantoprazole 40 mg tablet,delayed 40 mg PO DAILY #30 tabs 11/23/21 01/23/22 release potassium chloride 20 mEq 20 meq PO BIDWMEAL #60 tabs 11/23/21 01/23/22 tablet,extended release(part/cryst) sucralfate 1 gram tablet 1 g PO AC & HS #120 tabs 11/23/21 01/23/22 simvastatin 10 mg tablet 10 mg PO QPM #90 tabs 11/27/21 01/23/22 torsemide 20 mg tablet 40 mg PO DAILY #60 tabs 12/07/21 01/23/22 diabetic extra depth shoes #1 ea 01/01/22 01/23/22 cephalexin 500 mg capsule 500 mg PO QID #39 caps 01/23/22 Previous Rx's Medication Instructions Recorded acetaminophen 325 mg tablet 325 - 650 mg PO Q4H PRN PRN pain 05/24/18 (Tylenol) #30 tabs blood sugar diagnostic #400 ea 07/29/20 magnesium chloride 64 mg 64 mg PO BID #180 tabs 04/07/21 (magnesium chloride) tablet,delayed release apixaban 5 mg tablet (Eliquis) 5 mg PO BID #60 tabs 07/15/21 allopurinol 100 mg tablet 100 mg PO DAILY #90 tabs 08/13/21 colchicine 0.6 mg tablet 0.6 mg PO DAILY PRN gout #20 tabs 10/15/21 metolazone 5 mg tablet 5 mg PO .COMPLEX #60 tabs 10/27/21 empagliflozin 10 mg tablet 10 mg PO QAM #30 tabs 11/23/21 (Jardiance) pantoprazole 40 mg tablet,delayed 40 mg PO DAILY #30 tabs 11/23/21 release potassium chloride 20 mEq 20 meq PO BIDWMEAL #60 tabs 11/23/21 tablet,extended release(part/cryst) sucralfate 1 gram tablet 1 g PO AC & HS #120 tabs 11/23/21 simvastatin 10 mg tablet 10 mg PO QPM #90 tabs 11/27/21 torsemide 20 mg tablet 40 mg PO DAILY #60 tabs 12/07/21 diabetic extra depth shoes #1 ea 01/01/22 cephalexin 500 mg capsule 500 mg PO QID #39 caps 01/23/22 Allergies Allergy/AdvReac Type Severity Reaction Status Date / Time aspirin Allergy Hives Verified 01/23/22 09:22 Penicillins Allergy Verified 01/23/22 09:22 tetracycline Allergy Verified 01/23/22 09:22 adhesive AdvReac Intermediate Topical Verified 01/23/22 09:22 Irritation General Stated Complaint: Cellulitis BROOKE: 4 Review of Systems Constitutional Constitutional: Denies fever(s) Musculoskeletal Comments: FROM elbows bilateral Integumentary/Breasts Skin/Breast: Reports as per HPI PFSH All Active Problems Thrombophlebitis of arm, right (Acute) Thrombophlebitis of arm, left (Acute) Iron deficiency anemia due to chronic blood loss (Acute) Malignant hypertensive heart and CKD (chronic kidney disease) stage IV (Acute) CHF (congestive heart failure) (Chronic) On amiodarone therapy (Acute) Obstructive sleep apnea syndrome (Chronic 09/26/12) DX SEP 2012 AT [facility]; wears CPAP machine. Diabetes mellitus (Chronic 11/07/12) Anemia (Chronic) Atrial fibrillation (Chronic 06/23/12) 02/19 start Tikosyn 06/21 and 11/20 recurrent 2013 [place] [facility] [place] [facility] [place] normal LVEF and valves 05/2021 RVR, s/p RODRIGUEZ CV and change to amiodarone. Essential hypertension (Acute 08/13/13) Gout (Chronic) intermittent, diet based. Hyperlipidemia (Acute) Hypothyroidism (Chronic 12/06/14) Acute UTI (Acute) Mitral stenosis with regurgitation (Chronic) Obesity, morbid (Chronic) a. BMI of 52 Medical History Asthma Bilateral bunions Colon polyp (07/10/18) 12/19 tubular adenoma Diabetic neuropathy Diverticulosis Former smoker (08/16/14) 5 pack yr history Gastroesophageal reflux disease GI bleed had melena transiently in 02/2021; unable to be evaluated due to AV stenosis. 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 tachycardia FPC current use of antiarrhythmic medical therapy (08/21/13) Osteoarthritis Peptic ulcer disease with hemorrhage hx x 3 Pre-ulcerative corn or callous Restless legs (01/18/13) sleep study low iron (not anemic) Severe aortic stenosis Surgical History History of esophagogastroduodenoscopy (EGD) (~05/2018) 07/10/18 History of open sigmoidectomy S/P colonoscopy (~07/10/18) Status post abdominal hysterectomy Status post appendectomy Status post total bilateral knee replacement Status post transcatheter aortic valve replacement (TAVR) using bioprosthesis (~04/2021) Complicated by extravasation of contrast on iliofemoral angiography. 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 Son No problems noted. Social History Smoking/Tobacco Use Status: Former Tobacco Use Quit Date: 08/08/72 Tobacco: How many years used: 4 Second Hand Exposure: No Smoking risk assessment performed?: Yes Alcohol Intake: never Drug use: Never Substance use type: does not use Caregiver/Support person: No Household members: spouse Housing: house Communication Needs: None current occupation: [employer] Pets and animals: Yes Pets and animals: dog(s) Sexually active: Yes Do you think of yourself as: straight/heterosexual Current gender identity: female What is your relationship status?: How often do you talk on the phone with friends or family?: twice per week How often do you get together with friends or relatives?: three or more times per week How often do you attend baptism or baptism services?: 4 or more times per year Do you belong to any clubs or organized social groups?: no Panel score (0-1 are the most socially isolated patients): 3 What type of physical activity do you participate in: walking Duration: < 15 minutes/day Frequency: 1-2 times per week Radha/Quaker: Restorationism Special radha needs: No Seatbelt use: always Drive intox or ride w/intox cdl b driver: No Do you feel safe at home: Yes Do you feel safe in your relationship?: Yes Exam Const General: cooperative and no acute distress Resp Auscultation: clear to auscultation bilaterally, no rales, no rhonchi and no wheezes Cardio Rate: regular rate and not tachycardic Rhythm: regular rhythm Pulses: radial pulses present bilaterally 2+ Skin General skin exam: no fluctuance Rashes: rashes noted (mild erythema bialteral antecub fossa with 2mm pustule left antecub) Neuro General: patient alert, patient awake and tone normal Extrem General: no edema Right upper extremity: elbow/forearm Details: normal ROM Left upper extremity: elbow/forearm Details: normal ROM Course Vital Signs Vital signs: Vital Signs Temperature 36.6 C 01/23/22 09:14 Pulse 69 01/23/22 09:14 Respiratory Rate 18 01/23/22 09:14 Blood Pressure 123/35 L 01/23/22 09:14 Pulse Oximetry 96 01/23/22 09:14 Temperature 36.6 C 01/23/22 09:14 Temperature Source Temporal Artery Scan 01/23/22 09:14 Pulse 69 01/23/22 09:14 Respiratory Rate 18 01/23/22 09:14 Respiratory Effort Non-Labored 01/23/22 09:19 Blood Pressure 123/35 L 01/23/22 09:14 Blood Pressure Position Sitting 01/23/22 09:14 Pulse Oximetry 96 01/23/22 09:14 Oxygen Delivery Method Room Air 01/23/22 09:14 Oxygen Flow Rate 0 01/23/22 09:14 Pain Level 4 01/23/22 09:14
[2022-01-23] MEDS: Cephalexin 500 MG CAP PO (10:11)
== END 2022-01-23 10:15 | disposition home or self-care (01) ==
PROVIDERS: Emergency Provider Student in an Organized Health Care Education/Training Program; PCP Family Medicine
DX: T80.1XXA Vascular complications following infusion, transfusion and therapeutic injection, initial encounter (principal); I80.8 Phlebitis and thrombophlebitis of other sites
CPT/HCPCS: 99283

== ENCOUNTER 2022-01-26 13:00 | Outpatient (CLI) | payer MEDICARE, SELFPAY ==
[2022-01-26 09:44] LABS: Anion Gap 10.9 mmol/L (3-11); BUN 44 mg/dL (7-18); CO2 26.1 mmol/L (21.0-32.0); CREATININE 2.2 mg/dL (0.55-1.02); Calcium 9.1 mg/dL (8.5-10.1); Chloride 99 mmol/L (98-107); Estimated GFR 21.76 (mL/min/1.73m2); Glucose 266 mg/dL (74-106); Potassium 4.1 mmol/L (3.5-5.1); Sodium 136 mmol/L (136-145)
== END 2022-01-26 13:01 | disposition home or self-care (01) ==
LOC: LBO 13:01
PROVIDERS: PCP Family Medicine; Visit Provider Family Medicine
DX: E11.9 Type 2 diabetes mellitus without complications (principal)
CPT/HCPCS: 36415; 80048

== ENCOUNTER 2022-01-28 07:08 | Emergency (ER) | payer MEDICARE, SELFPAY ==
[2022-01-28] VITALS (34 sets, daily range): BP systolic 97–131; BP diastolic 39–95; PULSE 67–103; RESP 13–25; TEMP 36.8; O2SAT 87–99
--- NOTE | 2022-01-28 07:00 | RT.EKG_ITS ---
APPROVED REPORT Exam: Resting ECG Reason for Exam: AFIB Patient Location: E HR:92 bpm ECG Measurements Heart Rate 92 AXIS MN [id number] P [id number] QRSd 114 QRS -52 QT 406 T 61 QTc 504 Conclusion Atrial fibrillation...? atrial activity Incomplete left bundle branch block...QRSd>110mS, terminal axis(-90,-1) Prolonged QT interval...QTc >500mS
--- NOTE | 2022-01-28 07:15 | DI.RAD_ITS ---
Exam(s) XR PORTABLE CHEST AP EXAM: XR PORTABLE CHEST AP CLINICAL HISTORY: palpitations TECHNIQUE: 2D digital imaging was performed. COMPARISON: CR,XR XR PORTABLE CHEST AP from 01/18/2022 FINDINGS: Lung bases poorly penetrated. LUNGS: No focal consolidation. No pleural abnormality seen. HEART: Enlarged. Aortic valve prosthesis. Mitral valve calcification. AORTA: Normal. BONES: Degenerative changes spine and shoulders. Soft tissues: Unremarkable. IMPRESSION: Cardiomegaly. No acute findings. DATA REPOSITORY: RADIATION DOSE DELIVERED:
--- NOTE | 2022-01-28 07:20 | W.ED.GENAD ---
Discharge Plan Disposition Patient Disposition: STILL A PATIENT Condition: Stable Discharge Details Chief Complaint: Palpitatns Clinical Impression: Palpitations Primary Care Provider: Kimberly Nicloe ED Provider: Gurpreet Eldridge Home Meds and New Rx's Prescriptions: No Action albuterol sulfate 90 mcg/actuation HFA aerosol inhaler 2 puff IH QID PRN metoprolol succinate 100 mg tablet extended release 24 hr 50 mg PO DAILY metolazone 5 mg tablet 5 mg PO .COMPLEX Qty: 60 5RF Rx Instructions: 5 mg PO As directed; Take 1 pill Mondays and , 1 hour prior to Lasix amiodarone 400 mg tablet 200 mg PO DAILY levothyroxine 25 mcg tablet 25 mcg PO DAILY acetaminophen [Tylenol] 325 mg tablet 325 - 650 mg PO Q4H PRN PRN (Reason: pain) Qty: 30 0RF (DME) blood sugar diagnostic Strip See Dose Instructions .ROUTE .MEDSUPPLY Qty: 400 3RF Dose Instruction: As directed Rx Instructions: use tid and prn.Accu-Chek Smart View Test Strip magnesium chloride 64 mg tablet,delayed release (DR/EC) 64 mg PO BID Qty: 180 3RF Eliquis 5 mg tablet 5 mg PO BID Qty: 60 11RF allopurinol 100 mg tablet 100 mg PO DAILY Qty: 90 1RF colchicine 0.6 mg tablet 0.6 mg PO DAILY PRN (Reason: gout) Qty: 20 3RF simvastatin 10 mg tablet 10 mg PO QPM Qty: 90 3RF torsemide 20 mg tablet 40 mg PO DAILY Qty: 60 1RF (DME) diabetic extra depth shoes See Rx Instructions .Route .MEDSUPPLY Qty: 1 0RF Rx Instructions: As directed Jardiance 10 mg tablet 10 mg PO QAM Qty: 90 1RF pantoprazole 40 mg tablet,delayed release (DR/EC) 40 mg PO DAILY Qty: 30 5RF sucralfate 1 gram Tablet 1 g PO AC & HS Qty: 120 1RF potassium chloride 20 mEq Tablet,Er Particles/Crystals 20 meq PO BIDWMEAL Qty: 60 1RF cephalexin 500 mg capsule 500 mg PO QID Qty: 39 0RF Medical Decision Making ?76 yo female with a PMH of CHF, CKD, LAI, DM, Afib, Severe aortic stenosis, s/p TAVR, anticoagulation with Eliquis, sigmoidectomy, peptic ulcerations, who comes in with feeling her heart beating irreguarly and thinks she is in afib. She denies chest pain, dyspnea, abdomen pain, dark stools. She states the symptoms have been present since yesterday. She arrives stable, is in afib with rates in the 90's and stable vitals. She is in no distress speaking clearly. She has no jvd on exam, clear lungs. Suspect her palpitations are due to her afib but given her history will obtain cbc to evaluate for anemia, cmp, troponin x2, and portable chest xray. She has no tachycardia or hypoxia to suggest dvt and no pleuritic chest pain patient signed out to oncoming provider pending lab results, cxr results, and reassessment as well as dispo. Differential Diagnosis Differential Diagnosis: afib, anemia, nstemi Medical Records Medical records reviewed: Yes I reviewed the patient's medical records. ECG Data Attestation: I personally reviewed and interpreted this ECG (s) as follows: Prior ECG tracings: available for review Interpretation: afib, rate of 92, no acute st t wave ischemic findings HPI General Mode of arrival: ambulatory. Date/Time Provider Initiated Documentation: 01/28/22 07:10. Limitations to Documentation: no limitations. Information obtained by: patient. History of Present Illness 76 year old F presents to the emergency department with the chief complaint of palpitations, described as moderate, Patient started experiencing this day(s) (1) and it has been constant. No relieving factors improve symptom(s), No exacerbating factors reported . Patient notes no other symptoms.. Patient did receive the following treatments prior to arrival, none Related Data Home Medications Medication Instructions Recorded Confirmed albuterol sulfate 90 mcg/actuation 2 puff inhalation QID PRN 04/17/18 01/28/22 aerosol inhaler acetaminophen 325 mg tablet 325 - 650 mg PO Q4H PRN PRN pain 05/24/18 01/28/22 (Tylenol) #30 tabs blood sugar diagnostic #400 ea 07/29/20 01/28/22 magnesium chloride 64 mg 64 mg PO BID #180 tabs 04/07/21 01/28/22 (magnesium chloride) tablet,delayed release metoprolol succinate 100 mg 50 mg PO DAILY 04/29/21 01/28/22 tablet,extended release 24 hr amiodarone 400 mg tablet 200 mg PO DAILY 06/24/21 01/28/22 apixaban 5 mg tablet (Eliquis) 5 mg PO BID #60 tabs 07/15/21 01/28/22 allopurinol 100 mg tablet 100 mg PO DAILY #90 tabs 08/13/21 01/28/22 levothyroxine 25 mcg tablet 25 mcg PO DAILY 08/21/21 01/28/22 colchicine 0.6 mg tablet 0.6 mg PO DAILY PRN gout #20 tabs 10/15/21 01/28/22 metolazone 5 mg tablet 5 mg PO .COMPLEX #60 tabs 10/27/21 01/28/22 potassium chloride 20 mEq 20 meq PO BIDWMEAL #60 tabs 11/23/21 01/28/22 tablet,extended release(part/cryst) sucralfate 1 gram tablet 1 g PO AC & HS #120 tabs 11/23/21 01/28/22 simvastatin 10 mg tablet 10 mg PO QPM #90 tabs 11/27/21 01/28/22 torsemide 20 mg tablet 40 mg PO DAILY #60 tabs 12/07/21 01/28/22 diabetic extra depth shoes #1 ea 01/01/22 01/28/22 cephalexin 500 mg capsule 500 mg PO QID #39 caps 01/23/22 01/28/22 empagliflozin 10 mg tablet 10 mg PO QAM #90 tabs 01/25/22 01/28/22 (Jardiance) pantoprazole 40 mg tablet,delayed 40 mg PO DAILY #30 tabs 01/25/22 01/28/22 release Previous Rx's Medication Instructions Recorded acetaminophen 325 mg tablet 325 - 650 mg PO Q4H PRN PRN pain 05/24/18 (Tylenol) #30 tabs blood sugar diagnostic #400 ea 07/29/20 magnesium chloride 64 mg 64 mg PO BID #180 tabs 04/07/21 (magnesium chloride) tablet,delayed release apixaban 5 mg tablet (Eliquis) 5 mg PO BID #60 tabs 07/15/21 allopurinol 100 mg tablet 100 mg PO DAILY #90 tabs 08/13/21 colchicine 0.6 mg tablet 0.6 mg PO DAILY PRN gout #20 tabs 10/15/21 metolazone 5 mg tablet 5 mg PO .COMPLEX #60 tabs 10/27/21 potassium chloride 20 mEq 20 meq PO BIDWMEAL #60 tabs 11/23/21 tablet,extended release(part/cryst) sucralfate 1 gram tablet 1 g PO AC & HS #120 tabs 11/23/21 simvastatin 10 mg tablet 10 mg PO QPM #90 tabs 11/27/21 torsemide 20 mg tablet 40 mg PO DAILY #60 tabs 12/07/21 diabetic extra depth shoes #1 ea 01/01/22 cephalexin 500 mg capsule 500 mg PO QID #39 caps 01/23/22 empagliflozin 10 mg tablet 10 mg PO QAM #90 tabs 01/25/22 (Jardiance) pantoprazole 40 mg tablet,delayed 40 mg PO DAILY #30 tabs 01/25/22 release Allergies Allergy/AdvReac Type Severity Reaction Status Date / Time aspirin Allergy Hives Verified 01/28/22 07:16 Penicillins Allergy Verified 01/28/22 07:16 tetracycline Allergy Verified 01/28/22 07:16 adhesive AdvReac Intermediate Topical Verified 01/28/22 07:16 Irritation General Stated Complaint: Palpitatns BROOKE: 3 Review of Systems All systems reviewed & are unremarkable except as noted in HPI and below Constitutional Constitutional: Denies chills, Denies fever(s) and Denies weakness Cardiovascular Cardiovascular: Denies chest pain and Denies dyspnea Respiratory Respiratory: Denies cough and Denies dyspnea Gastrointestinal Gastrointestinal: Denies abdominal pain, Denies nausea and Denies vomiting Genitourinary Genitourinary: Denies dysuria Musculoskeletal Musculoskeletal: Denies joint swelling Integumentary/Breasts Skin/Breast: Denies rash Neurologic Neurologic: Denies weakness PFSH All Active Problems (Updated 01/28/22 @ 07:31 by Gurpreet Eldridge MD) Thrombophlebitis of arm, right (Acute) Thrombophlebitis of arm, left (Acute) Palpitations (Acute) Iron deficiency anemia due to chronic blood loss (Acute) 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 Diabetes mellitus (Chronic 11/07/12) Anemia (Chronic) Atrial fibrillation (Chronic 06/23/12) 02/19 start Tikosyn 06/21 and 11/20 [place] [facility] [place] [facility] [place] normal LVEF and valves 05/2021 RVR, s/p RODRIGUEZ CV and change to amiodarone. Essential hypertension (Acute 08/13/13) Gout (Chronic) intermittent, diet based. Hyperlipidemia (Acute) Hypothyroidism (Chronic 12/06/14) Acute UTI (Acute) Mitral stenosis with regurgitation (Chronic) Obesity, morbid (Chronic) a. BMI of 52 Medical History Asthma Bilateral bunions Colon polyp (07/10/18) 12/19 tubular adenoma Diabetic neuropathy Diverticulosis Former smoker (08/16/14) 5 pack yr history Gastroesophageal reflux disease GI bleed had melena transiently in 02/2021; unable to be evaluated due to AV stenosis. 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 use of antiarrhythmic medical therapy (08/21/13) Osteoarthritis Peptic ulcer disease with hemorrhage hx x 3 Pre-ulcerative corn or callous Restless legs (01/18/13) sleep study low iron (not anemic) Severe aortic stenosis Surgical History History of esophagogastroduodenoscopy (EGD) (~05/2018) 07/10/18 History of open sigmoidectomy S/P colonoscopy (~07/10/18) Status post abdominal hysterectomy Status post appendectomy Status post total bilateral knee replacement Status post transcatheter aortic valve replacement (TAVR) using bioprosthesis (~04/2021) Complicated by extravasation of contrast on iliofemoral angiography. 2 covered stents placed in the artery EIA extending into the R [employer] SU[employer] Family History Mother , 65 Thoracic aneurysm, ruptured Personal history of malignant neoplasm LYMPHOMA Father , 64 Heart disease Myocardial infarction Stroke Maternal Grandfather , 80 Heart disease Stroke Paternal Grandfather , 65 Heart disease Maternal Grandmother , 83 Heart disease Paternal Grandmother , 40 Cancer Son No problems noted. Son No problems noted. 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 Pets and animals: Yes Pets and animals: dog(s) Sexually active: Yes Do you think of yourself as: straight/heterosexual Current gender identity: female What is your relationship status?: How often do you talk on the phone with friends or family?: twice per week How often do you get together with friends or relatives?: three or more times per week How often do you attend bahai or zoroastrianism services?: 4 or more times per year Do you belong to any clubs or organized social groups?: no Panel score (0-1 are the most socially isolated patients): 3 What type of physical activity do you participate in: walking Duration: < 15 minutes/day Frequency: 1-2 times per week Radha/Mu-Ism: Holiness Special radha needs: No Seatbelt use: always Drive intox or ride w/intox hi low 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: No Do you feel safe at home: Yes Do you feel safe in your relationship?: Yes Exam Const General: no acute distress Orientation: alert HENMT Head: normal to inspection Ears: external ears normal General nose exam: external nose normal Mouth: moist mucous membranes Eyes General: appearance normal, both eyes and all related structures Neck Neck: normal visual inspection Resp Effort & Inspection: normal respiratory effort and able to speak in complete sentences Cardio Rhythm: other (afib) Skin General skin exam: no rashes or lesions noted Neuro General: patient alert and patient oriented x3 Extrem General: normal to inspection Psych Mental Status: mental status grossly normal Course Vital Signs Vital signs: Vital Signs Temperature 36.8 C 01/28/22 07:11 Pulse 98 H 01/28/22 07:11 Respiratory Rate 01/28/22 07:11 Blood Pressure 115/95 H 01/28/22 07:11 Pulse Oximetry 96 01/28/22 07:11 Temperature 36.8 C 01/28/22 07:11 Temperature Source Temporal Artery Scan 01/28/22 07:11 Pulse 98 H 01/28/22 07:11 Respiratory Rate 01/28/22 07:11 Respiratory Effort Non-Labored 01/28/22 07:16 Blood Pressure 115/95 H 01/28/22 07:11 Blood Pressure Position Sitting 01/28/22 07:11 Pulse Oximetry 96 01/28/22 07:11 Oxygen Delivery Method Room Air 01/28/22 07:11 Oxygen Flow Rate 0 01/28/22 07:11 Pain Level 0 01/28/22 07:11
[2022-01-28 07:58] LABS: Abs Immature Grans 0.05 10^3/uL (0.0-0.06); Absolute Basophil Count 0.06 10^3/uL (0.0-0.2); Absolute Eosinophil Count 0.22 10^3/uL (0.0-0.7); Absolute Lymphocyte Count 1.46 10^3/uL (1.2-3.4); Absolute Monocyte Count 0.59 10^3/uL (0.1-0.8); Absolute Neutrophil Count 5.21 10^3/uL (1.2-6.7); Basophils % 0.8; Eosinophils % 2.9; HGB 9.8 g/dL (11.2-15.7); Immature Grans % 0.7; Lymphocytes % 19.2; MCV 86 fL (80-95); MPV 8.6 fL (8.0-11.0); Monocytes % 7.8; Neutrophils % 68.6; Nucleated RBC 0.3 % (0.0-0.3); Platelet Count 579 10^3/uL (130-400); RBC 4.09 10^6/uL (3.93-5.22); RDW 22.1 % (11.7-14.6); RDW-SD 68.2 fL; WBC 7.59 10^3/uL (4.4-10.8)
[2022-01-28 08:13] LABS: INR 1.3 (0.9-1.1); PTT Activated 25.8 sec (21.0-27.5); Prothrombin Time 12.7 sec (9.3-11.0)
--- NOTE | 2022-01-28 08:16 | W.EDPROG ---
Date of service: 01/28/22 Time of Service: 08:00 Medical Decision Making 0800 --please see Dr. Eldridge's note for initial presentation, exam and plan. Case endorsed to follow-up on labs and imaging and final disposition. 76-year-old female admitted here on 01/18/22 for shortness of breath in the setting of anemia with report of GI bleed given blood transfusion and referral to [facility] for EGD due to multiple comorbidities presents for shortness of breath and palpitations since yesterday. 1100 --labs and imaging reviewed. Normal white blood cell count. Hemoglobin 9.8. Creatinine 2.1 which is her baseline. BNP elevated to 2996 but chest x-ray negative for acute disease and oxygen saturation mid-high 90s on room air and no complaint of active shortness of breath. Patient has had 2 negative troponins. She had a repeat EKG which was unchanged from prior EKG. Her heart rate and blood pressure has remained within normal limits. She felt comfortable going home. She has no tachycardia and has no pleuritic pain and already taking Eliquis so PE appears unlikely. She has a follow-up appointment with her primary care doctor tomorrow and has a follow-up appointment with her trim stencil maker Dr. Becerra next Tuesday. Usual and customary return precautions given prior to discharge. Medical Records Medical records reviewed: Yes I reviewed the patient's medical records. Imaging Data Radiologic Study: Radiologist's impression: XR PORTABLE CHEST AP CLINICAL HISTORY:? palpitations TECHNIQUE:? 2D digital imaging was performed. COMPARISON:? CR,XR XR PORTABLE CHEST AP from 01/18/2022 FINDINGS: ?Lung bases poorly penetrated. LUNGS: No focal consolidation.? No pleural abnormality seen. HEART: Enlarged.? Aortic valve prosthesis.? Mitral valve calcification. AORTA: Normal. BONES: Degenerative changes spine and shoulders. Soft tissues: Unremarkable. IMPRESSION: Cardiomegaly.? No acute? findings. Lab Data Lab results reviewed: Yes I reviewed the patient's lab results. Labs: Laboratory Tests Range/Units 01/28/22 01/28/22 01/28/22 07:25 07:25 07:25 WBC (4.4-10.8) 10^3/uL 7.59 RBC (3.93-5.22) 10^6/uL 4.09 Hgb (11.2-15.7) g/dL 9.8 L Hct (36.0-46.0) % 35.0 L MCV (80-95) fL 86 MCH (27.0-33.0) pg 24.0 L MCHC (32.0-36.0) % 28.0 L RDW (11.7-14.6) % 22.1 H Plt Count (130-400) 10^3/uL 579 H MPV (8.0-11.0) fL 8.6 Immature Gran % 0.7 Neutrophils % 68.6 Lymphocytes % 19.2 Monocytes % 7.8 Eosinophils % 2.9 Basophils % 0.8 Nucleated RBC % (0.0-0.3) % 0.3 Absolute Neutrophils (1.2-6.7) 10^3/uL 5.21 Absolute Lymphocytes (1.2-3.4) 10^3/uL 1.46 Absolute Monocytes (0.1-0.8) 10^3/uL 0.59 Absolute Eosinophils (0.0-0.7) 10^3/uL 0.22 Absolute Basophils (0.0-0.2) 10^3/uL 0.06 RBC Morphology See Below Polychromasia Present Anisocytosis 2+ PT (9.3-11.0) sec 12.7 H INR (0.9-1.1) 1.3 H APTT (21.0-27.5) sec 25.8 Sodium (136-145) mmol/L 136 Potassium (3.5-5.1) mmol/L 4.1 Chloride (98-107) mmol/L 98 Carbon Dioxide (21.0-32.0) mmol/L 27.3 Anion Gap (3-11) mmol/L 10.7 BUN (7-18) mg/dL 38 H Creatinine (0.55-1.02) mg/dL 2.1 H Estimated GFR/1.73 m2 (mL/min/1.73m2) 22.96 Glucose (74-106) mg/dL 182 H Calcium (8.5-10.1) mg/dL 9.3 Magnesium (1.8-2.4) mg/dL 2.3 Total Bilirubin (0.2-1.0) mg/dL 0.2 AST (15-37) U/L 29 ALT (14-59) U/L 24 Alkaline Phosphatase (46-116) U/L 90 Troponin I (<or=60) ng/L < 50 NT-Pro-B Natriuret Pep (<300) pg/mL 2996 H Total Protein (6.4-8.2) g/dL 8.1 Albumin (3.4-5.0) g/dL 3.1 L COVID-19 Source Patient ABO/Rh Antibody Screen Antibody Identification Range/Units 01/28/22 01/28/22 01/28/22 07:25 07:42 10:15 WBC (4.4-10.8) 10^3/uL RBC (3.93-5.22) 10^6/uL Hgb (11.2-15.7) g/dL Hct (36.0-46.0) % MCV (80-95) fL MCH (27.0-33.0) pg MCHC (32.0-36.0) % RDW (11.7-14.6) % Plt Count (130-400) 10^3/uL MPV (8.0-11.0) fL Immature Gran % Neutrophils % Lymphocytes % Monocytes % Eosinophils % Basophils % Nucleated RBC % (0.0-0.3) % Absolute Neutrophils (1.2-6.7) 10^3/uL Absolute Lymphocytes (1.2-3.4) 10^3/uL Absolute Monocytes (0.1-0.8) 10^3/uL Absolute Eosinophils (0.0-0.7) 10^3/uL Absolute Basophils (0.0-0.2) 10^3/uL RBC Morphology Polychromasia Anisocytosis PT (9.3-11.0) sec INR (0.9-1.1) APTT (21.0-27.5) sec Sodium (136-145) mmol/L Potassium (3.5-5.1) mmol/L Chloride (98-107) mmol/L Carbon Dioxide (21.0-32.0) mmol/L Anion Gap (3-11) mmol/L BUN (7-18) mg/dL Creatinine (0.55-1.02) mg/dL Estimated GFR/1.73 m2 (mL/min/1.73m2) Glucose (74-106) mg/dL Calcium (8.5-10.1) mg/dL Magnesium (1.8-2.4) mg/dL Total Bilirubin (0.2-1.0) mg/dL AST (15-37) U/L ALT (14-59) U/L Alkaline Phosphatase (46-116) U/L Troponin I (<or=60) ng/L < 50 NT-Pro-B Natriuret Pep (<300) pg/mL Total Protein (6.4-8.2) g/dL Albumin (3.4-5.0) g/dL COVID-19 Source Nasal/Nares Patient ABO/Rh A Negative Antibody Screen POSITIVE Antibody Identification Anti-Fya ECG Data Attestation: I personally reviewed and interpreted this ECG (s) as follows: Interpretation: #2 --Rate of 91, A. fib versus flutter. No significant change from previous EKG. No STEMI Sign Out Sign Out Data: Sign Out Comment: 76 yo female with a PMH of CHF, CKD, LAI, DM, Afib, Severe aortic stenosis, s/p TAVR, anticoagulation with Eliquis, sigmoidectomy, peptic ulcerations, here for palpitations and is in rate controlled afib. Pending labs and xray, dispo. Denies chest pain or dyspnea Last updated by Gurpreet Eldridge MD at 01/28/22 07:32 Discharge Plan Disposition Patient Disposition: HOME Condition: Improving Discharge Details Clinical Impression: Palpitations Primary Care Provider: Kimberly Nicole ED Provider: Mayelin Berger Home Meds and New Rx's Prescriptions: Continued albuterol sulfate 90 mcg/actuation HFA aerosol inhaler 2 puff IH QID PRN metoprolol succinate 100 mg tablet extended release 24 hr 50 mg PO DAILY metolazone 5 mg tablet 5 mg PO .COMPLEX Qty: 60 5RF Rx Instructions: 5 mg PO As directed; Take 1 pill Mondays and , 1 hour prior to Lasix amiodarone 400 mg tablet 200 mg PO DAILY levothyroxine 25 mcg tablet 25 mcg PO DAILY acetaminophen [Tylenol] 325 mg tablet 325 - 650 mg PO Q4H PRN PRN (Reason: pain) Qty: 30 0RF (DME) blood sugar diagnostic Strip See Dose Instructions .ROUTE .MEDSUPPLY Qty: 400 3RF Dose Instruction: As directed Rx Instructions: use tid and prn.Accu-Chek Smart View Test Strip magnesium chloride 64 mg tablet,delayed release (DR/EC) 64 mg PO BID Qty: 180 3RF Eliquis 5 mg tablet 5 mg PO BID Qty: 60 11RF allopurinol 100 mg tablet 100 mg PO DAILY Qty: 90 1RF colchicine 0.6 mg tablet 0.6 mg PO DAILY PRN (Reason: gout) Qty: 20 3RF simvastatin 10 mg tablet 10 mg PO QPM Qty: 90 3RF torsemide 20 mg tablet 40 mg PO DAILY Qty: 60 1RF (DME) diabetic extra depth shoes See Rx Instructions .Route .MEDSUPPLY Qty: 1 0RF Rx Instructions: As directed Jardiance 10 mg tablet 10 mg PO QAM Qty: 90 1RF pantoprazole 40 mg tablet,delayed release (DR/EC) 40 mg PO DAILY Qty: 30 5RF sucralfate 1 gram Tablet 1 g PO AC & HS Qty: 120 1RF potassium chloride 20 mEq Tablet,Er Particles/Crystals 20 meq PO BIDWMEAL Qty: 60 1RF cephalexin 500 mg capsule 500 mg PO QID Qty: 39 0RF Discharge Instructions Instructions: Heart Palpitations (ED) Additional Instructions: Your lab work, EKGs and imaging today is reassuring and shows no evidence of acute concerning or significant findings. A blood test called BNP was elevated today. Your primary care doctor and/or trim stencil maker may recheck this test if indicated. Follow-up with your upcoming scheduled appointment with your primary care doctor for reevaluation and for referral for outpatient groundwater monitoring technician if your palpitations persist or worsen. Follow-up with your scheduled appointment with your trim stencil maker Dr. Becerra next week. Return immediately to the emergency department if you develop any worsening or new concerning symptoms. Your COVID test result is pending. Please quarantine until your test result is available and if confirmed to be negative. Stand Alone Forms: PENDING COVID-19 TESTING Discharge Data Discharge Physician: Mayelin Berger
[2022-01-28 08:21] LABS: ALT 24 U/L (14-59); AST 29 U/L (15-37); Albumin 3.1 g/dL (3.4-5.0); Alkaline Phosphatase 90 U/L (46-116); Anion Gap 10.7 mmol/L (3-11); BUN 38 mg/dL (7-18); Bilirubin, Total 0.2 mg/dL (0.2-1.0); CO2 27.3 mmol/L (21.0-32.0); CREATININE 2.1 mg/dL (0.55-1.02); Calcium 9.3 mg/dL (8.5-10.1); Chloride 98 mmol/L (98-107); Estimated GFR 22.96 (mL/min/1.73m2); Glucose 182 mg/dL (74-106); Magnesium 2.3 mg/dL (1.8-2.4); NT-proBNP 2996 pg/mL (<300); Potassium 4.1 mmol/L (3.5-5.1); Sodium 136 mmol/L (136-145); Total Protein 8.1 g/dL (6.4-8.2); Troponin I < 50 ng/L (<or=60)
[2022-01-28 08:22] LABS: Anisocytosis 2+; Diff Comment RBC Morph Reviewed; Polychromasia Present
--- NOTE | 2022-01-28 08:45 | RT.EKG_ITS ---
APPROVED REPORT Exam: Resting ECG Reason for Exam: chest pressure Patient Location: E HR:91 bpm ECG Measurements Heart Rate 91 AXIS IA [id number] P [id number] QRSd 108 QRS -45 QT 426 T 40 QTc 524 Conclusion Atrial flutter with predominant 3:1 AV block...A-rate 294, multiple Ps Prolonged QT interval...QTc >500mS. Afib vs flutter. No significant change from previous. No STEMI. I have reviewed and interpreted ECG and agree with software generated interpretation.
[2022-01-28 10:38] LABS: Troponin I < 50 ng/L (<or=60)
[2022-01-28 11:26] LABS: Source Nasal/Nares
[2022-01-28 12:15] LABS: COVID-19 PCR Negative (Negative)
== END 2022-01-28 12:09 | disposition home or self-care (01) ==
PROVIDERS: Emergency Medicine; Emergency Provider Physician Assistant; PCP Family Medicine
DX: R00.2 Palpitations (principal); R06.02 Shortness of breath; R07.89 Other chest pain; I48.91 Unspecified atrial fibrillation; Z79.01 Long term (current) use of anticoagulants; Z20.822 Contact with and (suspected) exposure to COVID-19
CPT/HCPCS: 36415; 80053; 86850; 86900; 86901; 87635; 93005; 99284; 71045; 83735; 83880; 84484; 85025; 85610; 85730; 86870; 93010

== ENCOUNTER → 2022-02-04 11:00 | Outpatient (BNVA) | payer MEDICARE, SELFPAY | PROVIDERS: PCP Family Medicine; Referring Provider Family Medicine; Visit Provider Internal Medicine Cardiovascular Disease | DX: I48.11 Longstanding persistent atrial fibrillation (principal); I50.813 Acute on chronic right heart failure; Z79.899 Other long term (current) drug therapy | CPT/HCPCS: 99214; 99213 ==

== ENCOUNTER 2022-03-08 04:01 | Outpatient (CLI) | payer MEDICARE, SELFPAY ==
[2022-03-08 12:52] LABS: ALT 41 U/L (14-59); AST 45 U/L (15-37); Albumin 3.9 g/dL (3.4-5.0); Alkaline Phosphatase 100 U/L (46-116); Anion Gap 12.8 mmol/L (3-11); Bilirubin, Total 0.4 mg/dL (0.2-1.0); CO2 25.2 mmol/L (21.0-32.0); CREATININE 2.8 mg/dL (0.55-1.02); Calcium 9.1 mg/dL (8.5-10.1); Chloride 96 mmol/L (98-107); Estimated GFR 16.47 (mL/min/1.73m2); Glucose 212 mg/dL (74-106); Potassium 3.2 mmol/L (3.5-5.1); Sodium 134 mmol/L (136-145); Total Protein 8.2 g/dL (6.4-8.2); Uric Acid 9.6 mg/dL (2.6-6.0)
[2022-03-08 13:01] LABS: BUN 80 mg/dL (7-18)
== END 2022-03-08 04:02 | disposition home or self-care (01) ==
LOC: LOS 04:02
PROVIDERS: PCP Family Medicine; Visit Provider Family Medicine
DX: I13.10 Hypertensive heart and chronic kidney disease without heart failure, with stage 1 through stage 4 chronic kidney disease, or unspecified chronic kidney disease (principal); N18.4 Chronic kidney disease, stage 4 (severe); Z00.00 Encounter for general adult medical examination without abnormal findings; M1A.9XX0 Chronic gout, unspecified, without tophus (tophi)
CPT/HCPCS: 36415; 80053; 84550

== ENCOUNTER 2022-03-09 03:44 | Outpatient (CLI) | payer MEDICARE, SELFPAY ==
[2022-03-09] MEDS: Inhaler, Assist Device 1 EACH MC (11:07)
[2022-03-09] MEDS: Albuterol HFA 18 GM 200 PUFF INH IH (11:07)
--- NOTE | 2022-03-10 12:54 | W.PFT ---
Date of service: 03/09/22 Time of Service: 10:06 Pulmonary Function Test Result Requesting Provider Frank Aguilar Indications: Amiodarone Therapy Interpretation Spirometry: There is no airflow limitation. The FVC is low. There is no significant bronchodilator response. Lung Volumes: Lung volumes are normal. Diffusion Capacity: The diffusion is normal. Airway Pressure: Normal airways resistance. Impression Normal pulmonary function testing. The FVC is likely pseudo-restriction due to an elevated BMI. There are no prior PFT's in the system for comparison. Clinical Correlation therefore is recommended.
== END 2022-03-09 03:45 | disposition home or self-care (01) ==
LOC: RT 03:44
PROVIDERS: PCP Family Medicine; Visit Provider Internal Medicine Cardiovascular Disease
DX: R06.09 Other forms of dyspnea (principal); Z87.891 Personal history of nicotine dependence
CPT/HCPCS: 94060; 94726; 94729; 94762

== ENCOUNTER 2022-03-12 10:02 | Outpatient (CLI) | payer MEDICARE, SELFPAY ==
[2022-03-12 12:39] LABS: Anion Gap 9.9 mmol/L (3-11); BUN 60 mg/dL (7-18); CO2 28.1 mmol/L (21.0-32.0); CREATININE 2.1 mg/dL (0.55-1.02); Calcium 9.2 mg/dL (8.5-10.1); Chloride 100 mmol/L (98-107); Estimated GFR 22.96 (mL/min/1.73m2); Glucose 152 mg/dL (74-106); Potassium 4.3 mmol/L (3.5-5.1); Sodium 138 mmol/L (136-145)
== END 2022-03-12 10:03 | disposition home or self-care (01) ==
LOC: LOS 10:02
PROVIDERS: PCP Family Medicine; Referring Provider Family Medicine; Visit Provider Family Medicine
DX: I13.10 Hypertensive heart and chronic kidney disease without heart failure, with stage 1 through stage 4 chronic kidney disease, or unspecified chronic kidney disease (principal); N18.4 Chronic kidney disease, stage 4 (severe)
CPT/HCPCS: 36415; 80048

== ENCOUNTER 2022-03-16 14:51 | Outpatient (CLI) | payer MEDICARE, SELFPAY | END 2022-03-16 14:52 | LOC: CARDO 03-17 11:11 | PROVIDERS: PCP Family Medicine; Visit Provider Internal Medicine Cardiovascular Disease | DX: I48.0 Paroxysmal atrial fibrillation (principal); I47.2 Ventricular tachycardia | CPT/HCPCS: 93272 ==

== ENCOUNTER 2022-03-30 04:06 | Outpatient (CLI) | payer MEDICARE, SELFPAY ==
--- NOTE | 2022-03-30 14:00 | NS.NUTBLAN_ITS ---
Ms. Iqbal was referred for diabetes self management education. PMH: Dm2, CHF, CKD, HTN 76 yo 4'11 229 lbs BMI 47 Most recent A1C(12/22/21): 6.3% Target A1C: <8.5% in view of age and co morbidities. DM meds: 10 units Lantus HS - prescribed levemir, however, could not afford co pay. recently stopped Jardiance in view of GFR of 16. Diet Recall: B: Cheerios with 2% milk, berries, L: bagel and cream cheese, D: meat and vegetables. Ms. Iqbal checks her fasting blood sugars every morning and reports that run around 130-150 mg/dl since taking the lantus. She is unable to take walks daily due to feeling unsteady and has been trying to lose weight without luck. Ms. Iqbal has been injecting with lantus for about 1 month. She has no concerns about taking this injection. We reviewed technique and she is following recommendations for optimal injections technique. Ms. Iqbal counts her carbs and mg of sodium daily. She keeps her carb intake to no more than 100 grams daily and often will not include a starch at dinner. She also avoids foods with more than 500 mg sodium. She weighs herself daily and follow up with PCP if she gains > 2 lbs per day. Overall, Ms. Iqbal is managing her CHF and DM2 well with life style modification and and medication. No follow up appt needed at this time. Has my contact information if needs additional support.
== END 2022-03-30 04:07 | disposition home or self-care (01) ==
LOC: DS 04:06
PROVIDERS: PCP Family Medicine; Visit Provider Dietitian, Registered
DX: E11.9 Type 2 diabetes mellitus without complications (principal); Z79.4 Long term (current) use of insulin; Z71.3 Dietary counseling and surveillance
CPT/HCPCS: 97802

== ENCOUNTER → 2022-05-06 10:20 | Outpatient (BNVA) | payer MEDICARE, SELFPAY | PROVIDERS: PCP Family Medicine; Referring Provider Family Medicine; Visit Provider Internal Medicine Cardiovascular Disease | DX: I48.11 Longstanding persistent atrial fibrillation (principal); I50.813 Acute on chronic right heart failure; Z79.899 Other long term (current) drug therapy; Z95.3 Presence of xenogenic heart valve | CPT/HCPCS: 99214 ==

== ENCOUNTER 2022-06-16 03:40 | Outpatient (CLI) | payer MEDICARE, SELFPAY ==
[2022-06-16 10:34] LABS: Abs Immature Grans 0.02 10^3/uL (0.0-0.06); Absolute Basophil Count 0.05 10^3/uL (0.0-0.2); Absolute Eosinophil Count 0.32 10^3/uL (0.0-0.7); Absolute Lymphocyte Count 1.41 10^3/uL (1.2-3.4); Absolute Monocyte Count 0.81 10^3/uL (0.1-0.8); Absolute Neutrophil Count 4.05 10^3/uL (1.2-6.7); Basophils % 0.8; Eosinophils % 4.8; HCT 37.6 % (36.0-46.0); HGB 10.7 g/dL (11.2-15.7); Immature Grans % 0.3; Lymphocytes % 21.2; MCH 22.1 pg (27.0-33.0); MCHC 28.5 % (32.0-36.0); MCV 78 fL (80-95); MPV 8.8 fL (8.0-11.0); Monocytes % 12.2; Neutrophils % 60.7; Platelet Count 450 10^3/uL (130-400); RBC 4.84 10^6/uL (3.93-5.22); RDW 21.2 % (11.7-14.6); RDW-SD 58.9 fL; WBC 6.66 10^3/uL (4.4-10.8)
[2022-06-16 11:48] LABS: Lab Add On Test DONE
[2022-06-16 12:10] LABS: ALT 34 U/L (14-59); AST 44 U/L (15-37); Albumin 3.8 g/dL (3.4-5.0); Alkaline Phosphatase 102 U/L (46-116); BUN 68 mg/dL (7-18); Bilirubin, Total 0.4 mg/dL (0.2-1.0); CREATININE 2.3 mg/dL (0.55-1.02); Calcium 9.3 mg/dL (8.5-10.1); Chloride 98 mmol/L (98-107); Estimated GFR 21.62 (mL/min/1.73m2); Glucose 100 mg/dL (74-106); Potassium 4.1 mmol/L (3.5-5.1); Sodium 140 mmol/L (136-145)
== END 2022-06-16 03:41 | disposition home or self-care (01) ==
PROVIDERS: PCP Family Medicine; Visit Provider Family Medicine
DX: D50.0 Iron deficiency anemia secondary to blood loss (chronic) (principal); I13.10 Hypertensive heart and chronic kidney disease without heart failure, with stage 1 through stage 4 chronic kidney disease, or unspecified chronic kidney disease; N18.4 Chronic kidney disease, stage 4 (severe)
CPT/HCPCS: 36415; 80053; 85025

== ENCOUNTER 2022-06-28 11:10 | Inpatient (IN) | payer MEDICARE, SELFPAY ==
[2022-06-28] VITALS (18 sets, daily range): BP systolic 96–141; BP diastolic 37–69; PULSE 53–98; RESP 15–34; TEMP 36.4–38.8; O2SAT 88–99
--- NOTE | 2022-06-28 11:00 | RT.EKG_ITS ---
APPROVED REPORT Exam: Resting ECG Reason for Exam: sob Patient Location: E HR:76 bpm ECG Measurements Heart Rate 76 AXIS IA 67 P 0 QRSd 140 QRS -71 QT 437 T 106 QTc 491 Conclusion Sinus rhythm...normal P axis, V-rate 60- 99 Left bundle branch block...QRSd>120, broad/notched R sinus rhythm at 76, left bundle branch block (seen on prior 12/27), does not meet STEMI criteria, nond iagnostic EKG
--- NOTE | 2022-06-28 11:15 | DI.RAD_ITS ---
Exam(s) XR PORTABLE CHEST AP EXAM: XR PORTABLE CHEST AP CLINICAL HISTORY: SOB TECHNIQUE: 2D digital imaging was performed. COMPARISON: CR,XR XR PORTABLE CHEST AP from 01/18/2022 CR XR PORTABLE CHEST AP from 01/28/2022 FINDINGS: LUNGS: Dense infiltrate right mid lung field. Left lung clear. No pleural abnormality seen. HEART: Enlarged. Mitral valve calcifications. Valve prosthesis. AORTA: Normal diameter. Mild calcification. BONES: Severe degenerative changes of both shoulders. Degenerative changes are noted in the thoracic spine. Soft tissues: Unremarkable. IMPRESSION: Dense infiltrate right midlung field. DATA REPOSITORY: RADIATION DOSE DELIVERED:
--- NOTE | 2022-06-28 11:32 | W.ED.GENAD ---
Discharge Plan Disposition Patient Disposition: Admit to [facility] Condition: Fair Discharge Details Chief Complaint: SOB Clinical Impression: Pneumonia Admit Date/Time: 06/28/22 12:19 Admit Provider: Mervin Monk Attending Provider: Mervin Monk Primary Care Provider: Kimberly Nicole ED Provider: Drea Arredondo Medical Decision Making Concern for CHF exacerbation, reactive airway disease, viral pneumonia, bacterial pneumonia, pulmonary embolism, acute coronary syndrome, other. Exam/history at this time is not consistent with acute aortic pathology. Plan for EKG, IV placement, telemetry, screening labs, chest x-ray, nasal cannula O2, DuoNeb. Will monitor and reassess. Chest x-ray shows dense infiltrate. Patient reporting intermittent sharp right-sided chest pain, lasted for seconds now resolved. Repeat EKG without major change from prior. Patient maintaining sats in the mid 90s on 3 L nasal cannula, her work of breathing appears to have improved, however she reports that she does not feel less short of breath being on oxygen. Labs reviewed, WBC 25.2, hemoglobin 10.3, D-dimer 542, troponin negative, BNP 5093. Will add blood cultures, lactate and antibiotics. Patient reports that she has not been hospitalized in the past 3 months. Plan for cefepime, azithromycin. Plan for 40 mg IV Lasix as likely some CHF component. SBP 148 at this time. Discussed patient presentation, results, plan with Dr. Monk. Plan to admit for further eval and treatment. Medical Records Medical records reviewed: Yes I reviewed the patient's medical records. Imaging Data Radiologic Study: Attestation: I personally reviewed and interpreted this imaging study as follows: Radiologist's impression: EXAM:? XR PORTABLE CHEST AP CLINICAL HISTORY:? SOB TECHNIQUE:? 2D digital imaging was performed. COMPARISON:? CR,XR XR PORTABLE CHEST AP from 01/18/2022 CR XR PORTABLE CHEST AP from 01/28/2022 FINDINGS: LUNGS: Dense infiltrate right mid lung field.? Left lung clear.? No pleural abnormality seen. HEART: Enlarged.? Mitral valve calcifications.? Valve prosthesis. AORTA: Normal diameter.? Mild calcification. BONES: Severe degenerative changes of both shoulders.? Degenerative changes are noted in the thoracic spine. Soft tissues: Unremarkable. IMPRESSION: Dense infiltrate right midlung field. Lab Data Lab results reviewed: Yes I reviewed the patient's lab results. Labs: 06/28/22 12:40 Blood Blood Culture - Pending 06/28/22 12:25 Blood Blood Culture - Pending Laboratory Tests Range/Units 06/28/22 06/28/22 06/28/22 11:32 11:32 11:32 WBC (4.4-10.8) 10^3/uL RBC (3.93-5.22) 10^6/uL Hgb (11.2-15.7) g/dL Hct (36.0-46.0) % MCV (80-95) fL MCH (27.0-33.0) pg MCHC (32.0-36.0) % RDW (11.7-14.6) % Plt Count (130-400) 10^3/uL MPV (8.0-11.0) fL Immature Gran % Neutrophils % Band Neutrophils % Lymphocytes % Monocytes % Eosinophils % Basophils % Nucleated RBC % (0.0-0.3) % Absolute Neutrophils (1.2-6.7) 10^3/uL Absolute Lymphocytes (1.2-3.4) 10^3/uL Absolute Monocytes (0.1-0.8) 10^3/uL Absolute Eosinophils (0.0-0.7) 10^3/uL Absolute Basophils (0.0-0.2) 10^3/uL RBC Morphology Anisocytosis D-Dimer (<500) ng/mlFEU 542 H VBG pH (7.31-7.41) VBG pCO2 (41-51) mmHg VBG pO2 mmHg VBG HCO3 (23-28) mmol/L VBG Total CO2 (24-29) mmol/L VBG O2 Saturation % VBG Base Excess (-2-3) mmol/L VBG Lactate (0.6-1.4) mmol/L Sodium (136-145) mmol/L 133 L Potassium (3.5-5.1) mmol/L 4.8 Chloride (98-107) mmol/L 94 L Carbon Dioxide (21.0-32.0) mmol/L 27.6 Anion Gap (3-11) mmol/L 11.4 H BUN (7-18) mg/dL 54 H Creatinine (0.55-1.02) mg/dL 2.6 H Est GFR (CKD-EPI 2020) (mL/min/1.73m2) 18.67 Glucose (74-106) mg/dL 129 H Calcium (8.5-10.1) mg/dL 9.4 Magnesium (1.8-2.4) mg/dL 2.1 Total Bilirubin (0.2-1.0) mg/dL 0.9 AST (15-37) U/L 34 ALT (14-59) U/L 28 Alkaline Phosphatase (46-116) U/L 102 Troponin I (<or=60) ng/L < 50 NT-Pro-B Natriuret Pep (<300) pg/mL 5093 H Cancelled Total Protein (6.4-8.2) g/dL 8.6 H Albumin (3.4-5.0) g/dL 3.3 L Add-On Test Request Range/Units 06/28/22 06/28/22 06/28/22 11:32 12:25 12:25 WBC (4.4-10.8) 10^3/uL 25.20 H* RBC (3.93-5.22) 10^6/uL 4.69 Hgb (11.2-15.7) g/dL 10.3 L Hct (36.0-46.0) % 36.1 MCV (80-95) fL 77 L MCH (27.0-33.0) pg 22.0 L MCHC (32.0-36.0) % 28.5 L RDW (11.7-14.6) % 20.7 H Plt Count (130-400) 10^3/uL 403 H MPV (8.0-11.0) fL 8.8 Immature Gran % 0.0 Neutrophils % 87.0 Band Neutrophils % 7 Lymphocytes % 3.0 Monocytes % 2.0 Eosinophils % 0.0 Basophils % 1.0 Nucleated RBC % (0.0-0.3) % 0.0 Absolute Neutrophils (1.2-6.7) 10^3/uL 23.69 H Absolute Lymphocytes (1.2-3.4) 10^3/uL 0.76 L Absolute Monocytes (0.1-0.8) 10^3/uL 0.50 Absolute Eosinophils (0.0-0.7) 10^3/uL 0.00 Absolute Basophils (0.0-0.2) 10^3/uL 0.25 H RBC Morphology See Below Anisocytosis 2+ D-Dimer (<500) ng/mlFEU VBG pH (7.31-7.41) 7.37 VBG pCO2 (41-51) mmHg 48 VBG pO2 mmHg 28 VBG HCO3 (23-28) mmol/L 27 VBG Total CO2 (24-29) mmol/L 26 VBG O2 Saturation % 47 VBG Base Excess (-2-3) mmol/L 2 VBG Lactate (0.6-1.4) mmol/L 4.1 H* Sodium (136-145) mmol/L Potassium (3.5-5.1) mmol/L Chloride (98-107) mmol/L Carbon Dioxide (21.0-32.0) mmol/L Anion Gap (3-11) mmol/L BUN (7-18) mg/dL Creatinine (0.55-1.02) mg/dL Est GFR (CKD-EPI 2020) (mL/min/1.73m2) Glucose (74-106) mg/dL Calcium (8.5-10.1) mg/dL Magnesium (1.8-2.4) mg/dL Total Bilirubin (0.2-1.0) mg/dL AST (15-37) U/L ALT (14-59) U/L Alkaline Phosphatase (46-116) U/L Troponin I (<or=60) ng/L NT-Pro-B Natriuret Pep (<300) pg/mL Total Protein (6.4-8.2) g/dL Albumin (3.4-5.0) g/dL Add-On Test Request Range/Units 06/28/22 12:25 WBC (4.4-10.8) 10^3/uL RBC (3.93-5.22) 10^6/uL Hgb (11.2-15.7) g/dL Hct (36.0-46.0) % MCV (80-95) fL MCH (27.0-33.0) pg MCHC (32.0-36.0) % RDW (11.7-14.6) % Plt Count (130-400) 10^3/uL MPV (8.0-11.0) fL Immature Gran % Neutrophils % Band Neutrophils % Lymphocytes % Monocytes % Eosinophils % Basophils % Nucleated RBC % (0.0-0.3) % Absolute Neutrophils (1.2-6.7) 10^3/uL Absolute Lymphocytes (1.2-3.4) 10^3/uL Absolute Monocytes (0.1-0.8) 10^3/uL Absolute Eosinophils (0.0-0.7) 10^3/uL Absolute Basophils (0.0-0.2) 10^3/uL RBC Morphology Anisocytosis D-Dimer (<500) ng/mlFEU VBG pH (7.31-7.41) VBG pCO2 (41-51) mmHg VBG pO2 mmHg VBG HCO3 (23-28) mmol/L VBG Total CO2 (24-29) mmol/L VBG O2 Saturation % VBG Base Excess (-2-3) mmol/L VBG Lactate (0.6-1.4) mmol/L Sodium (136-145) mmol/L Potassium (3.5-5.1) mmol/L Chloride (98-107) mmol/L Carbon Dioxide (21.0-32.0) mmol/L Anion Gap (3-11) mmol/L BUN (7-18) mg/dL Creatinine (0.55-1.02) mg/dL Est GFR (CKD-EPI 2020) (mL/min/1.73m2) Glucose (74-106) mg/dL Calcium (8.5-10.1) mg/dL Magnesium (1.8-2.4) mg/dL Total Bilirubin (0.2-1.0) mg/dL AST (15-37) U/L ALT (14-59) U/L Alkaline Phosphatase (46-116) U/L Troponin I (<or=60) ng/L NT-Pro-B Natriuret Pep (<300) pg/mL Total Protein (6.4-8.2) g/dL Albumin (3.4-5.0) g/dL Add-On Test Request DONE ECG Data Attestation: I personally reviewed and interpreted this ECG (s) as follows: Interpretation: EKG shows sinus rhythm at 76, left bundle branch block (seen on prior 12/27), does not meet STEMI criteria, nondiagnostic EKG Repeat EKG shows sinus rhythm at 77, left bundle branch block, does not meet STEMI criteria, nondiagnostic EKG Sign Out No HPI General Mode of arrival: ambulatory. Date/Time Provider Initiated Documentation: 06/28/22 11:12. Limitations to Documentation: no limitations. Information obtained by: patient, family, RN notes reviewed and old records reviewed. HPI Narrative: Maliha Iqbal is a 26-year-old woman with a history of atrial fibrillation on apixaban, status post TAVR 1 year ago, hypertension, hyperlipidemia, hypothyroidism, obstructive sleep apnea, CHF, CKD, insulin-dependent diabetes presenting to emergency department with shortness of breath. Patient reports that since yesterday evening she has had shortness of breath at rest that worsens substantially with any type of exertion. Patient reports that she has had similar shortness of breath in the past with her CHF, however in the past when this occurs she has also had weight gain and lower extremity edema. Patient reports that she has had no recent weight gain and does not have any recent worsening of her lower extremity edema. She denies any pain, fever, vomiting, diarrhea, numbness, weakness, rash. She reports mild cough. Patient states she has been taking all of her medications as usual. Related Data Home Medications Medication Instructions Recorded Confirmed albuterol sulfate 90 mcg/actuation 2 puff inhalation QID PRN 04/17/18 06/28/22 aerosol inhaler acetaminophen 325 mg tablet 325 - 650 mg PO Q4H PRN PRN pain 05/24/18 06/28/22 (Tylenol) #30 tabs blood sugar diagnostic #400 ea 07/29/20 06/16/22 magnesium chloride 64 mg 64 mg PO BID #180 tabs 04/07/21 06/28/22 (magnesium chloride) tablet,delayed release apixaban 5 mg tablet (Eliquis) 5 mg PO BID #60 tabs 07/15/21 06/28/22 levothyroxine 25 mcg tablet 25 mcg PO DAILY 08/21/21 06/28/22 metolazone 5 mg tablet 5 mg PO .COMPLEX #60 tabs 10/27/21 06/28/22 simvastatin 10 mg tablet 10 mg PO QPM #90 tabs 11/27/21 06/28/22 diabetic extra depth shoes #1 ea 01/01/22 06/16/22 pantoprazole 40 mg tablet,delayed 40 mg PO DAILY #30 tabs 01/25/22 06/28/22 release metoprolol succinate 100 mg 100 mg PO DAILY #90 tabs 02/04/22 06/28/22 tablet,extended release 24 hr sucralfate 1 gram tablet 1 g PO AC & HS #120 tabs 02/05/22 06/28/22 allopurinol 100 mg tablet 100 mg PO DAILY #90 tabs 02/15/22 06/28/22 pen needle, diabetic 31 gauge x #100 ea 03/12/22 06/16/22 3/16 (BD Ultra-Fine Mini Pen Needle) insulin glargine 100 unit/mL (3 10 unit (0.1 mL) subcut QPM #15 mL 03/15/22 06/28/22 mL) subcutaneous pen torsemide 20 mg tablet 40 mg PO DAILY #60 tabs 04/13/22 06/28/22 potassium chloride 20 mEq 20 meq PO BIDWMEAL #60 tabs 05/03/22 06/28/22 tablet,extended release(part/cryst) amiodarone 200 mg tablet 200 mg PO DAILY #90 tabs 06/01/22 06/28/22 colchicine 0.6 mg tablet 0.6 mg PO DAILY PRN gout #20 tabs 06/08/22 06/28/22 Previous Rx's Medication Instructions Recorded acetaminophen 325 mg tablet 325 - 650 mg PO Q4H PRN PRN pain 05/24/18 (Tylenol) #30 tabs blood sugar diagnostic #400 ea 07/29/20 magnesium chloride 64 mg 64 mg PO BID #180 tabs 04/07/21 (magnesium chloride) tablet,delayed release apixaban 5 mg tablet (Eliquis) 5 mg PO BID #60 tabs 07/15/21 metolazone 5 mg tablet 5 mg PO .COMPLEX #60 tabs 10/27/21 simvastatin 10 mg tablet 10 mg PO QPM #90 tabs 11/27/21 diabetic extra depth shoes #1 ea 01/01/22 pantoprazole 40 mg tablet,delayed 40 mg PO DAILY #30 tabs 01/25/22 release metoprolol succinate 100 mg 100 mg PO DAILY #90 tabs 02/04/22 tablet,extended release 24 hr sucralfate 1 gram tablet 1 g PO AC & HS #120 tabs 02/05/22 allopurinol 100 mg tablet 100 mg PO DAILY #90 tabs 02/15/22 pen needle, diabetic 31 gauge x #100 ea 03/12/22 3/16 (BD Ultra-Fine Mini Pen Needle) insulin glargine 100 unit/mL (3 10 unit (0.1 mL) subcut QPM #15 mL 03/15/22 mL) subcutaneous pen torsemide 20 mg tablet 40 mg PO DAILY #60 tabs 04/13/22 potassium chloride 20 mEq 20 meq PO BIDWMEAL #60 tabs 05/03/22 tablet,extended release(part/cryst) amiodarone 200 mg tablet 200 mg PO DAILY #90 tabs 06/01/22 colchicine 0.6 mg tablet 0.6 mg PO DAILY PRN gout #20 tabs 06/08/22 Allergies Allergy/AdvReac Type Severity Reaction Status Date / Time aspirin Allergy Hives Verified 06/28/22 11:21 Penicillins Allergy Verified 06/28/22 11:21 tetracycline Allergy Verified 06/28/22 11:21 adhesive AdvReac Intermediate Topical Verified 06/28/22 11:21 Irritation General Stated Complaint: SOB BROOKE: 3 Review of Systems Narrative: Constitutional: denies fevers Eyes: denies eye pain ENT: denies ear pain, dental pain, sore throat Cardiovascular: denies chest pain, edema Respiratory: denies cough, reports cough GI: denies abdominal pain, vomiting, diarrhea : denies flank pain MSK: denies back pain, neck pain, arthralgias, myalgias Skin: denies rash Neuro: denies headaches, numbness, weakness PFSH All Active Problems (Updated 06/28/22 @ 15:36 by Drea Arredondo MD) Obesity, morbid (Chronic) a. BMI of 52 Atrial fibrillation (Chronic 06/23/12) 02/19 start Tikosyn 06/21 and 11/20 [address] [facility] [place] [address] [facility] [place] normal LVEF and valves 05/2021 RVR, s/p RODRIGUEZ CV and change to amiodarone. Essential hypertension (Acute 08/13/13) Hyperlipidemia (Acute) Hypothyroidism (Chronic 12/06/14) Obstructive sleep apnea syndrome (Chronic 09/26/12) DX SEP 2012 AT [facility]; wears CPAP machine. Gout (Chronic) intermittent, diet based. CHF (congestive heart failure) (Chronic) On amiodarone therapy (Acute) Mitral stenosis with regurgitation (Chronic) Malignant hypertensive heart and CKD (chronic kidney disease) stage IV (Acute) Iron deficiency anemia due to chronic blood loss (Acute) Type 2 diabetes mellitus without complication, with long-term current use of insulin (Acute) Pneumonia (Acute) Medical History Asthma Bilateral bunions Colon polyp (07/10/18) 12/19 tubular adenoma Diabetic neuropathy Diverticulosis Former smoker (08/16/14) 5 pack yr history Gastroesophageal reflux disease GI bleed had melena transiently in 02/2021; unable to be evaluated due to AV stenosis. 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 tachycardia [facility] current use of antiarrhythmic medical therapy (08/21/13) Osteoarthritis Peptic ulcer disease with hemorrhage hx x 3 Pre-ulcerative corn or callous Restless legs (01/18/13) sleep study low iron (not anemic) Severe aortic stenosis Surgical History History of esophagogastroduodenoscopy (EGD) (~05/2018) 07/10/18 History of open sigmoidectomy S/P colonoscopy (~07/10/18) Status post abdominal hysterectomy Status post appendectomy Status post total bilateral knee replacement Status post transcatheter aortic valve replacement (TAVR) using bioprosthesis (~04/2021) Complicated by extravasation of contrast on iliofemoral angiography. 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 Son No problems noted. 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 Pets and animals: Yes Pets and animals: dog(s) Sexually active: Yes Do you think of yourself as: straight/heterosexual Current gender identity: female What is your relationship status?: How often do you talk on the phone with friends or family?: twice per week How often do you get together with friends or relatives?: three or more times per week How often do you attend taoism or adventist services?: 4 or more times per year Do you belong to any clubs or organized social groups?: no Panel score (0-1 are the most socially isolated patients): 3 What type of physical activity do you participate in: walking Duration: < 15 minutes/day Frequency: 1-2 times per week Radha/Confucianist: Sabianist Special radha needs: No Seatbelt use: always Drive intox or ride w/intox contract driver: No Do you feel safe at home: Yes Do you feel safe in your relationship?: Yes Exam Narrative Exam Narrative: Constitutional: Somewhat ill-appearing, alert, speaking in short sentences HENT: head atraumatic/normocephalic/normal inspection, mucous membranes moist Eyes: conjunctiva normal, sclera normal, pupils 3mm b/l Neck: no stridor, normal ROM, trachea midline Chest: normal inspection Resp: Increased work of breathing, diminished breath sounds bilaterally, slight expiratory wheeze bilaterally Cardio: normal rate, normal rhythm, no murmur appreciated GI: abdomen soft, non-tender, non-distended Back: normal inspection, no rash Skin: warm, dry, normal color, no rash Neuro: alert, not altered, grossly non-focal, normal tone Ext: no edema, no posterior calf tenderness to palpation Psych: normal mood, normal affect, normal behavior Course Vital Signs Vital signs: Vital Signs Temperature 36.4 C L 06/28/22 11:14 Pulse 85 06/28/22 11:14 Respiratory Rate 30 H 06/28/22 11:14 Blood Pressure 124/51 L 06/28/22 11:14 Pulse Oximetry 88 L 06/28/22 11:14 Temperature 36.4 C L 06/28/22 11:14 Temperature Source Skin 06/28/22 11:14 Pulse 85 06/28/22 11:14 Respiratory Rate 30 H 06/28/22 11:14 Blood Pressure 124/51 L 06/28/22 11:14 Blood Pressure Position Sitting 06/28/22 11:14 Pulse Oximetry 88 L 06/28/22 11:14 Oxygen Delivery Method Room Air 06/28/22 11:14 Oxygen Flow Rate 0 06/28/22 11:14 Pain Level 0 06/28/22 11:14
[2022-06-28] MEDS: Albuterol/Ipratropium 3 ML UPD VIAL UPD (11:43)
--- NOTE | 2022-06-28 11:45 | RT.EKG_ITS ---
APPROVED REPORT Exam: Resting ECG Reason for Exam: chest pain Patient Location: E HR:77 bpm ECG Measurements Heart Rate 77 AXIS OH 187 P 90 QRSd 139 QRS -71 QT 420 T 97 QTc 477 Conclusion Sinus rhythm...normal P axis, V-rate 60- 99 Left bundle branch block...QRSd>120, broad/notched R sinus rhythm at 77, left bundle branch block, does not meet STEMI criteria, nondiagnostic EKG
[2022-06-28 11:46] LABS: HCT 36.1 % (36.0-46.0); HGB 10.3 g/dL (11.2-15.7); MCHC 28.5 % (32.0-36.0); MCV 77 fL (80-95); MPV 8.8 fL (8.0-11.0); Platelet Count 403 10^3/uL (130-400); RBC 4.69 10^6/uL (3.93-5.22); RDW 20.7 % (11.7-14.6); RDW-SD 56.9 fL
[2022-06-28 12:00] LABS: Absolute Basophil Count 0.25 10^3/uL (0.0-0.2); Absolute Lymphocyte Count 0.76 10^3/uL (1.2-3.4); Absolute Neutrophil Count 23.69 10^3/uL (1.2-6.7); Anisocytosis 2+; Bands % 7; Diff Comment Manual Differential
[2022-06-28 12:05] LABS: ALT 28 U/L (14-59); AST 34 U/L (15-37); Albumin 3.3 g/dL (3.4-5.0); Alkaline Phosphatase 102 U/L (46-116); Anion Gap 11.4 mmol/L (3-11); BUN 54 mg/dL (7-18); Bilirubin, Total 0.9 mg/dL (0.2-1.0); CO2 27.6 mmol/L (21.0-32.0); CREATININE 2.6 mg/dL (0.55-1.02); Calcium 9.4 mg/dL (8.5-10.1); Chloride 94 mmol/L (98-107); Estimated GFR 18.67 (mL/min/1.73m2); Glucose 129 mg/dL (74-106); Magnesium 2.1 mg/dL (1.8-2.4); NT-proBNP 5093 pg/mL (<300); Potassium 4.8 mmol/L (3.5-5.1); Sodium 133 mmol/L (136-145); Total Protein 8.6 g/dL (6.4-8.2); Troponin I < 50 ng/L (<or=60)
[2022-06-28 12:15] LABS: D-Dimer 542 ng/mlFEU (<500)
[2022-06-28 12:31] LABS: BE (Venous) 2 mmol/L (-2-3); HCO3 (Venous) 27 mmol/L (23-28); O2 Sat (Venous) 47 %; TCO2 (Venous) 26 mmol/L (24-29); pCO2 (Venous) 48 mmHg (41-51); pH (Venous) 7.37 (7.31-7.41); pO2 (Venous) 28 mmHg
[2022-06-28 12:40] LABS: Lab Add On Test DONE
[2022-06-28 12:41] LABS: Lactate 4.1 mmol/L (0.6-1.4)
[2022-06-28] MEDS: CEFEPIME 2 GM in Normal Saline 100 ML IVPB (12:47)
[2022-06-28] MEDS: Furosemide 40 MG/4 ML VIAL IVP (12:49)
[2022-06-28] MEDS: AZITHROMYCIN 500 MG in Normal Saline 250 ML 250 MG IVPB (13:33)
[2022-06-28 13:44] LABS: Procalcitonin 3.9 ng/mL
[2022-06-28 14:14] LABS: COVID-19 PCR Negative (Negative); Influenza A PCR Negative (Negative); Influenza B PCR Negative (Negative); RSV PCR Negative (Negative)
[2022-06-28 14:16] LABS: Source Nasopharynx
[2022-06-28] MEDS: Acetaminophen 325 MG TAB PO (14:35)
[2022-06-28 15:15] LABS: Troponin I < 50 ng/L (<or=60)
[2022-06-28] MEDS: Insulin Aspart 300 UNITS/3 ML PEN SC (17:17)
[2022-06-28] MEDS: Sucralfate 1 GM TAB PO ×2 (17:17→21:38)
[2022-06-28] MEDS: Potassium Chloride 20 MEQ TABCR PO (17:17)
--- NOTE | 2022-06-28 18:01 | HPE_ITS ---
Date of service: 06/28/22 Time of Service: 18:01 Assessment and Plan Assessment and plan (1) Obesity, morbid: Status: Chronic Assessment and plan: Contributes, likely, to her LAI and pseudo-restriction (seen of PFTs). (2) Atrial fibrillation: Status: Chronic Assessment and plan: Now in sinus rhythm. Cont amiodarone and metoprolol. Cont apixaban. Qualifiers: Atrial fibrillation type: longstanding persistent Qualified Code(s): I48.11 - Longstanding persistent atrial fibrillation (3) Essential hypertension: Status: Acute Assessment and plan: Cont metoprolol Monitor. (4) Pneumonia: Status: Acute Assessment and plan: Cont cefepime and azithromycin. Mucinex. IS (5) Asthma: Assessment and plan: She has an asthma dx and has albuterol on home med list. PFTs on 03/09/22 were normal. No response to bronchodilators. LIkley pseudo- restriction due to an elevated BMI. Qualifiers: Asthma severity: mild Asthma persistence: intermittent Asthma compli cation type: uncomplicated Qualified Code(s): J45.20 - Mild intermittent asthma, uncomplicated History of Present Illness History of Present Illness Chief Complaint: Shortness of breath Narrative: This is a 76 yo female with a PMH of atrial fibrillation on apixaban, HTN, HLD, hypothyroidism, LAI, CHF, CKD, DM on insulin, s/p TAVR 1 year ago. Her SOA began the evening before presentation and has been noticed at rest, worsened with exertion. She has not noted an pedal edema or wt gain. + mild cough w/o sputum. N F/C, abd pain/N/V, dysuria/frequency. In the ED her CXR showed a dense infiltrate in right midlung field. WBC count 25.2. VBG lactate elevated at 4.1. Na mildly low at 133. K 4.8. BUN 54. Cr 2.6. Glucose 129. Blood cultures drawn Review of Systems All systems reviewed & are unremarkable except as noted in HPI and below PFSH All Active Problems Obesity, morbid (Chronic) a. BMI of 52 Atrial fibrillation (Chronic 06/23/12) 02/19 start Tikosyn 06/21 and 11/20 recurrent 2013 ablation at [facility] [place] echo 2012 at [facility] [place], normal LVEF and valves 05/2021 RVR, s/p RODRIGUEZ CV and change to amiodarone. Essential hypertension (Acute 08/13/13) Hyperlipidemia (Acute) Hypothyroidism (Chronic 12/06/14) Obstructive sleep apnea syndrome (Chronic 09/26/12) DX SEP 2012 AT [facility]; wears CPAP machine. Gout (Chronic) intermittent, diet based. CHF (congestive heart failure) (Chronic) On amiodarone therapy (Acute) Mitral stenosis with regurgitation (Chronic) Malignant hypertensive heart and CKD (chronic kidney disease) stage IV (Acute) Iron deficiency anemia due to chronic blood loss (Acute) Type 2 diabetes mellitus without complication, with long-term current use of insulin (Acute) Pneumonia (Acute) Medical History Asthma Bilateral bunions Colon polyp (07/10/18) 12/19 tubular adenoma Diabetic neuropathy Diverticulosis Former smoker (08/16/14) 5 pack yr history Gastroesophageal reflux disease GI bleed had melena transiently in 02/2021; unable to be evaluated due to AV stenosis. 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 Son No problems noted. 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 Pets and animals: Yes Pets and animals: dog(s) Sexually active: Yes Do you think of yourself as: straight/heterosexual Current gender identity: female What is your relationship status?: How often do you talk on the phone with friends or family?: twice per week How often do you get together with friends or relatives?: three or more times per week How often do you attend confucianist or zoroastrianism services?: 4 or more times per year Do you belong to any clubs or organized social groups?: no Panel score (0-1 are the most socially isolated patients): 3 What type of physical activity do you participate in: walking Duration: < 15 minutes/day Frequency: 1-2 times per week Radha/Holiness: Confucianist Special radha needs: No Seatbelt use: always Drive intox or ride w/intox nascar driver: No Do you feel safe at home: Yes Do you feel safe in your relationship?: Yes Meds Allergies and Home Medications Allergies Allergy/AdvReac Type Severity Reaction Status Date / Time aspirin Allergy Hives Verified 06/28/22 11:21 Penicillins Allergy Verified 06/28/22 11:21 tetracycline Allergy Verified 06/28/22 11:21 adhesive AdvReac Intermediate Topical Verified 06/28/22 11:21 Irritation Home Medications Medication Instructions Recorded Confirmed Type albuterol sulfate 90 mcg/actuation 2 puff inhalation QID PRN 04/17/18 06/28/22 History aerosol inhaler acetaminophen 325 mg tablet 325 - 650 mg PO Q4H PRN PRN pain 05/24/18 06/28/22 Rx (Tylenol) #30 tabs blood sugar diagnostic #400 ea 07/29/20 06/16/22 Rx magnesium chloride 64 mg 64 mg PO BID #180 tabs 04/07/21 06/28/22 Rx (magnesium chloride) tablet,delayed release apixaban 5 mg tablet (Eliquis) 5 mg PO BID #60 tabs 07/15/21 06/28/22 Rx levothyroxine 25 mcg tablet 25 mcg PO DAILY 08/21/21 06/28/22 History metolazone 5 mg tablet 5 mg PO .COMPLEX #60 tabs 10/27/21 06/28/22 Rx simvastatin 10 mg tablet 10 mg PO QPM #90 tabs 11/27/21 06/28/22 Rx diabetic extra depth shoes #1 ea 01/01/22 06/16/22 Rx pantoprazole 40 mg tablet,delayed 40 mg PO DAILY #30 tabs 01/25/22 06/28/22 Rx release metoprolol succinate 100 mg 100 mg PO DAILY #90 tabs 02/04/22 06/28/22 Rx tablet,extended release 24 hr sucralfate 1 gram tablet 1 g PO AC & HS #120 tabs 02/05/22 06/28/22 Rx allopurinol 100 mg tablet 100 mg PO DAILY #90 tabs 02/15/22 06/28/22 Rx pen needle, diabetic 31 gauge x #100 ea 03/12/22 06/16/22 Rx 3/16 (BD Ultra-Fine Mini Pen Needle) insulin glargine 100 unit/mL (3 10 unit (0.1 mL) subcut QPM #15 mL 03/15/22 06/28/22 Rx mL) subcutaneous pen torsemide 20 mg tablet 40 mg PO DAILY #60 tabs 04/13/22 06/28/22 Rx potassium chloride 20 mEq 20 meq PO BIDWMEAL #60 tabs 05/03/22 06/28/22 Rx tablet,extended release(part/cryst) amiodarone 200 mg tablet 200 mg PO DAILY #90 tabs 06/01/22 06/28/22 Rx colchicine 0.6 mg tablet 0.6 mg PO DAILY PRN gout #20 tabs 06/08/22 06/28/22 Rx Exam Narrative Exam Narrative: Pt lying on side in bed. Pleasant. Conversant. Const General: cooperative and no acute distress Nutritional Appearance: obese Orientation: alert and oriented x3 HENMT Head: normal to inspection Ears: hearing grossly normal bilaterally Eyes General: appearance normal, both eyes and all related structures Sclera: sclerae normal Neck Neck: full ROM and no JVD Resp Effort & Inspection: able to speak in complete sentences and other (Mild increased WOB) Auscultation: rhonchi (Soft, right lung. ) Cardio Rate: regular rate Rhythm: regular rhythm Heart Sounds: S1 normal and S2 normal GI Inspection: non-distended Palpation: soft and nontender Skin General skin exam: no rashes or lesions noted Neuro General: no focal motor deficits Cranial Nerves: facial strength normal Speech: speech normal Extrem General: no pedal edema and no calf tenderness Psych Appearance: grossly normal Mood: congruent mood Affect: normal affect Results Labs Result diagrams: 06/28/22 11:32 06/28/22 11:32 Labs: Laboratory Results - last 24 hr 06/28/22 06/28/22 06/28/22 11:32 11:32 11:32 WBC RBC Hgb Hct MCV MCH MCHC RDW Plt Count MPV Immature Gran % Neutrophils % Band Neutrophils % Lymphocytes % Monocytes % Eosinophils % Basophils % Nucleated RBC % Absolute Neutrophils Absolute Lymphocytes Absolute Monocytes Absolute Eosinophils Absolute Basophils RBC Morphology Anisocytosis D-Dimer 542 H VBG pH VBG pCO2 VBG pO2 VBG HCO3 VBG Total CO2 VBG O2 Saturation VBG Base Excess VBG Lactate Sodium 133 L Potassium 4.8 Chloride 94 L Carbon Dioxide 27.6 Anion Gap 11.4 H BUN 54 H Creatinine 2.6 H Est GFR (CKD-EPI 2020) 18.67 Glucose 129 H Calcium 9.4 Magnesium 2.1 Total Bilirubin 0.9 AST 34 ALT 28 Alkaline Phosphatase 102 Troponin I < 50 NT-Pro-B Natriuret Pep 5093 H Cancelled Total Protein 8.6 H Albumin 3.3 L Procalcitonin COVID-19 Source SARS-CoV-2 (PCR) Influenza Type A (PCR) Influenza Type B (PCR) RSV (PCR) Add-On Test Request 06/28/22 06/28/22 06/28/22 11:32 12:25 12:25 WBC 25.20 H* RBC 4.69 Hgb 10.3 L Hct 36.1 MCV 77 L MCH 22.0 L MCHC 28.5 L RDW 20.7 H Plt Count 403 H MPV 8.8 Immature Gran % 0.0 Neutrophils % 87.0 Band Neutrophils % 7 Lymphocytes % 3.0 Monocytes % 2.0 Eosinophils % 0.0 Basophils % 1.0 Nucleated RBC % 0.0 Absolute Neutrophils 23.69 H Absolute Lymphocytes 0.76 L Absolute Monocytes 0.50 Absolute Eosinophils 0.00 Absolute Basophils 0.25 H RBC Morphology See Below Anisocytosis 2+ D-Dimer VBG pH 7.37 VBG pCO2 48 VBG pO2 28 VBG HCO3 27 VBG Total CO2 26 VBG O2 Saturation 47 VBG Base Excess 2 VBG Lactate 4.1 H* Sodium Potassium Chloride Carbon Dioxide Anion Gap BUN Creatinine Est GFR (CKD-EPI 2020) Glucose Calcium Magnesium Total Bilirubin AST ALT Alkaline Phosphatase Troponin I NT-Pro-B Natriuret Pep Total Protein Albumin Procalcitonin COVID-19 Source SARS-CoV-2 (PCR) Influenza Type A (PCR) Influenza Type B (PCR) RSV (PCR) Add-On Test Request 06/28/22 06/28/22 06/28/22 12:25 12:25 13:32 WBC RBC Hgb Hct MCV MCH MCHC RDW Plt Count MPV Immature Gran % Neutrophils % Band Neutrophils % Lymphocytes % Monocytes % Eosinophils % Basophils % Nucleated RBC % Absolute Neutrophils Absolute Lymphocytes Absolute Monocytes Absolute Eosinophils Absolute Basophils RBC Morphology Anisocytosis D-Dimer VBG pH VBG pCO2 VBG pO2 VBG HCO3 VBG Total CO2 VBG O2 Saturation VBG Base Excess VBG Lactate Sodium Potassium Chloride Carbon Dioxide Anion Gap BUN Creatinine Est GFR (CKD-EPI 2020) Glucose Calcium Magnesium Total Bilirubin AST ALT Alkaline Phosphatase Troponin I NT-Pro-B Natriuret Pep Total Protein Albumin Procalcitonin 3.9 COVID-19 Source Nasopharynx SARS-CoV-2 (PCR) Negative Influenza Type A (PCR) Negative Influenza Type B (PCR) Negative RSV (PCR) Negative Add-On Test Request DONE 06/28/22 14:24 WBC RBC Hgb Hct MCV MCH MCHC RDW Plt Count MPV Immature Gran % Neutrophils % Band Neutrophils % Lymphocytes % Monocytes % Eosinophils % Basophils % Nucleated RBC % Absolute Neutrophils Absolute Lymphocytes Absolute Monocytes Absolute Eosinophils Absolute Basophils RBC Morphology Anisocytosis D-Dimer VBG pH VBG pCO2 VBG pO2 VBG HCO3 VBG Total CO2 VBG O2 Saturation VBG Base Excess VBG Lactate Sodium Potassium Chloride Carbon Dioxide Anion Gap BUN Creatinine Est GFR (CKD-EPI 2020) Glucose Calcium Magnesium Total Bilirubin AST ALT Alkaline Phosphatase Troponin I < 50 NT-Pro-B Natriuret Pep Total Protein Albumin Procalcitonin COVID-19 Source SARS-CoV-2 (PCR) Influenza Type A (PCR) Influenza Type B (PCR) RSV (PCR) Add-On Test Request Last Vital Signs Temp 38.3 C H 06/28/22 15:45 Pulse 66 06/28/22 15:45 Resp 19 06/28/22 15:45 BP 106/63 06/28/22 15:45 Pulse Ox 93 06/28/22 15:45
[2022-06-28] MEDS: Insulin Glargine 300 UNITS/3 ML PEN 10 UNITS SC (21:37)
[2022-06-28] MEDS: Normal Saline Flush 10 ML SYR IVP (21:37)
[2022-06-28] MEDS: Apixaban 5 MG TAB PO (21:38)
[2022-06-28] MEDS: Simvastatin 10 MG TAB PO (21:38)
[2022-06-28] MEDS: guaiFENesin 600 MG TABCR PO (21:38)
[2022-06-28] MEDS: Magnesium Chloride 64 MG TABCR PO (21:38)
[2022-06-29] VITALS (11 sets, daily range): BP systolic 106–119; BP diastolic 53–66; PULSE 51–64; RESP 16–24; TEMP 36.5–37.4; O2SAT 89–97
[2022-06-29] MEDS: Acetaminophen 325 MG TAB PO ×2 (05:24→22:32)
[2022-06-29] MEDS: Levothyroxine 25 MCG TAB PO (05:24)
[2022-06-29 06:47] LABS: Abs Immature Grans 0.22 10^3/uL (0.0-0.06); Absolute Monocyte Count 1.04 10^3/uL (0.1-0.8); Absolute Neutrophil Count 19.21 10^3/uL (1.2-6.7); Basophils % 0.4; Eosinophils % 0.5; HCT 31.3 % (36.0-46.0); HGB 9.3 g/dL (11.2-15.7); Lymphocytes % 4.4; MCH 22.5 pg (27.0-33.0); MCHC 29.7 % (32.0-36.0); MCV 76 fL (80-95); Monocytes % 4.8; Neutrophils % 88.9; Platelet Count 332 10^3/uL (130-400); RBC 4.13 10^6/uL (3.93-5.22); RDW 20.4 % (11.7-14.6); RDW-SD 55.7 fL; WBC 21.61 10^3/uL (4.4-10.8)
[2022-06-29 06:50] LABS: Lactate 2.2 mmol/L (0.6-1.4)
[2022-06-29 06:51] LABS: Absolute Basophil Count 0.09 10^3/uL (0.0-0.2); Absolute Eosinophil Count 0.11 10^3/uL (0.0-0.7); Absolute Lymphocyte Count 0.95 10^3/uL (1.2-3.4)
[2022-06-29 07:03] LABS: Anisocytosis 2+; Diff Comment RBC Morph Reviewed; Hypochromasia 1+; Microcytosis 1+
[2022-06-29 07:04] LABS: Anion Gap 9.1 mmol/L (3-11); BUN 62 mg/dL (7-18); CO2 27.9 mmol/L (21.0-32.0); CREATININE 2.8 mg/dL (0.55-1.02); Calcium 9.4 mg/dL (8.5-10.1); Chloride 94 mmol/L (98-107); Estimated GFR 17.08 (mL/min/1.73m2); Glucose 114 mg/dL (74-106); Potassium 4.4 mmol/L (3.5-5.1); Sodium 131 mmol/L (136-145)
[2022-06-29] MEDS: Normal Saline Flush 10 ML SYR IVP ×2 (08:14→12:09)
[2022-06-29] MEDS: Torsemide 20 MG TAB 40 MG PO (08:15)
[2022-06-29] MEDS: Allopurinol 100 MG TAB PO (08:15)
[2022-06-29] MEDS: Magnesium Chloride 64 MG TABCR PO ×2 (08:15→19:54)
[2022-06-29] MEDS: Pantoprazole 40 MG TABCR PO (08:16)
[2022-06-29] MEDS: guaiFENesin 600 MG TABCR PO ×2 (08:16→19:54)
[2022-06-29] MEDS: Amiodarone 200 MG TAB PO (08:16)
[2022-06-29] MEDS: Metoprolol CR 100 MG TABCR PO (08:16)
[2022-06-29] MEDS: Potassium Chloride 20 MEQ TABCR PO ×2 (08:16→17:10)
[2022-06-29] MEDS: Sucralfate 1 GM TAB PO ×4 (08:16→22:32)
[2022-06-29] MEDS: Apixaban 5 MG TAB PO ×2 (08:16→19:54)
--- NOTE | 2022-06-29 08:34 | PDOC.CMIN ---
- If Service Date Differs Date of service: 06/29/22 Time of Service: 08:34 Care Management Initial Assess REASON FOR HOSPITALIZATION:: SOB PAST MEDICAL HISTORY/PAST SURGICAL HISTORY:: All Active Problems . Obesity, morbid (Chronic). a. BMI of 52. Atrial fibrillation (Chronic 06/23/12). 02/19 start Tikosyn. 06/21 and 11/20 recurrent. [place] [facility] [place] [facility] [place] LVEF and valves. 05/2021 RVR, s/p RODRIGUEZ CV and change to amiodarone. Essential hypertension (Acute 08/13/13). Hyperlipidemia (Acute). Hypothyroidism (Chronic 12/06/14). Obstructive sleep apnea syndrome (Chronic 09/26/12). DX SEP 2012 AT [facility]; wears CPAP machine. Gout (Chronic). intermittent, diet based. CHF (congestive heart failure) (Chronic). On amiodarone therapy (Acute). Mitral stenosis with regurgitation (Chronic). Malignant hypertensive heart and CKD (chronic kidney disease) stage IV (Acute). Iron deficiency anemia due to chronic blood loss (Acute). Type 2 diabetes mellitus without complication, with long-term current use of insulin (Acute). Pneumonia (Acute). Medical History . Asthma. Bilateral bunions. Colon polyp (07/10/18). 12/19 tubular adenoma. Diabetic neuropathy. Diverticulosis. Former smoker (08/16/14). 5 pack yr history. Gastroesophageal reflux disease. GI bleed. had melena transiently in 02/2021; unable to be evaluated due to AV stenosis. 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 tachycardia. 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 Osteoarthritis. Peptic ulcer disease with hemorrhage. hx x 3. Pre-ulcerative corn or callous. Restless legs (01/18/13). sleep study. low iron (not anemic). Severe aortic stenosis. Surgical History . History of esophagogastroduodenoscopy (EGD) (~05/2018). 07/10/18. History of open sigmoidectomy. S/P colonoscopy (~07/10/18). Status post abdominal hysterectomy. Status post appendectomy. Status post total bilateral knee replacement. Status post transcatheter aortic valve replacement (TAVR) using bioprosthesis (~04/2021). Complicated by extravasation of contrast on iliofemoral angiography. 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 and Demetrio lives down the road from his parents. Maliha shared that they also have 3 beautiful dogs, all around 7 years of age. Maliha is independent at baseline, drives and does not have any community services. She does use a cane occasionally at night. CURRENT FUNCTIONAL STATUS:: Maliha was sitting up in a chair when CM met with her. She was pleasant and engaged easily with CM. Maliha shared that she is feeling much better than when she first arrived. She informed CM that she got sick a couple of days ago and that her O2 saturation level dropped into the low 80's at home. She decided to wait another day to see if she improved, before seeking help. She acknowledged that it may not have been the best decision. Maliha denied the need for any new services at home. ADVANCE DIRECTIVES:: on file. Marcell Iqbal [facility] Has patient been provided with info about the portal/API?: Yes Did the patient sign up for the portal?: Yes (previously) CODE STATUS:: DNR/DNI INSURANCE COVERAGE / FINANCIAL ISSUES:: Medicare Advantage CURRENT HOME/COMMUNITY SERVICES/EQUIPMENT:: none PRIMARY CARE PHYSICIAN:: Kimberly Bullock POTENTIAL DISCHARGE NEEDS:: follow up with PCP and plan of care PATIENT/FAMILY EDUCATION NEEDS:: Review of dischgarge instructions, limitations, follow up plan, activityy. [employer] TRANSPORTATION:: via private vehicle with family PLAN:: Maliha will likely be discharged home with no new services. She will follow up with cardiology, her PCP and plan of care and transport with family.CM will continue to support Maliha and assess for discharge needs.
--- NOTE | 2022-06-29 09:48 | DM INPTCON_ITS ---
Date of service: 06/29/22 Time of Service: 09:48 Diabetes Inpatient Consult Reason for Visit: DM2 DESCRIPTION/ASSESSMENT: Maliha was admitted with SOB with long standing hx of morbid obesity, DM2, HTN, HLD, CKD and CHF. BMI 46. Most recent A1C(06/16/22): 6.8% indicates good glycemic management. Home DM meds: 10 units glargine q HS. Following diabetic diet with adequate intake. Have met with Maliha in on past admissions, not interested in weight loss at t his time. INTERVENTION: Continue diabetic diet and glycemic management PLAN: Recommend outpatient nutrition counseling for weight management when ready to make dietary changes Time Spent in Nutritional Counseling and Treatment: 0
--- NOTE | 2022-06-29 09:58 | PT.INIE ---
Date of service: 06/29/22 Time of Service: 09:58 PT Notes Visit Reasons: Right Sided Pneumonia Physical Therapy Inpatient Initial Evaluation Date: 06/29/2022 Referring Doctor: Mervin Monk MD PT Orders: PT CONSULT: Eval/treat Precautions: Fall. Standard. Activity as tolerated. On 0.5 L of oxygen per minute. Patient Profile/Admitting Diagnosis: Maliha is a 76-year-old female who presented to the ED on 06/28/2022 due to complaints of intermittent right-sided chest pain. Patient is diagnosed with atrial fibrillation, essential hypertension, pneumonia, and asthma. PMHX: All Active Problems? Obesity, morbid (Chronic) a. BMI of 52 Atrial fibrillation (Chronic 06/23/12) 02/19 start Tikosyn 06/21 and 11/20 recurrent 2012 ablation at [facility] [place] echo 2012 at [facility], normal LVEF and valves 05/2021 RVR, s/p RODRIGUEZ CV and change to amiodarone. Essential hypertension (Acute 08/13/13) Hyperlipidemia (Acute) Hypothyroidism (Chronic 12/06/14) Obstructive sleep apnea syndrome (Chronic 09/26/12) DX SEP 2012 AT [facility]; wears CPAP machine. Gout (Chronic) intermittent, diet based. CHF (congestive heart failure) (Chronic) On amiodarone therapy (Acute) Mitral stenosis with regurgitation (Chronic) Malignant hypertensive heart and CKD (chronic kidney disease) stage IV (Acute) Iron deficiency anemia due to chronic blood loss (Acute) Type 2 diabetes mellitus without complication, with long-term current use of insulin (Acute) Pneumonia (Acute) Medical History? Asthma Bilateral bunions Colon polyp (07/10/18) 12/19 tubular adenoma Diabetic neuropathy Diverticulosis Former smoker (08/16/14) 5 pack yr history Gastroesophageal reflux disease GI bleed had melena transiently in 02/2021; unable to be evaluated due to AV stenosis. 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 History of esophagogastroduodenoscopy (EGD) (~05/2018) 07/10/18 History of open sigmoidectomy S/P colonoscopy (~07/10/18) Status post abdominal hysterectomy Status post appendectomy Status post total bilateral knee replacement Status post transcatheter aortic valve replacement (TAVR) using bioprosthesis (~04/2021) Complicated by extravasation of contrast on iliofemoral angiography.? 2 covered stents placed in the artery EIA extending into the R [employer] Social History/Home Situation: Lives with in a private home with no steps to enter. Bedroom is on the second floor of the house with a flight of steps and a rail on one side. Prior to admission. Equipment Owned/DME: [facility]WW, Subjective: Agreeable to consult. Moderate shortness of breath with persistent dull ache on the left side of her chest noted after ambulation activity for the session. States rthat she has had 2-3 falls in the past year. States that she did not have oxygen supplementation at home prior to admission. Objective: General Observation: Seated on chair. Telemetry monitoring in place. High BMI. Mental Status: Alert and oriented as to person, place, time, and purpose. Able to pay attention, focus, and respond appropriately. Pain: 1/10 in left side of chest Vital Signs: After ambulation activity of 100 feet +50 feet with blood pressure of 125/64 mmHg, 98% on 1 L of oxygen per minute, and 61 bpm ROM: Right Upper Extremity: Shoulder Flexion WFL. Shoulder abduction WFL. Elbow flexion WFL. Wrist flexion WFL. Functional opening and closing of hand WFL. Left Upper Extremity: Shoulder Flexion WFL. Shoulder abduction WFL. Elbow flexion WFL. Wrist flexion WFL. Functional opening and closing of hand WFL. Right Lower Extremity: Hip flexion WFL. Hip abduction WFL. Knee flexion WFL. Ankle dorsiflexion WFL. Ankle plantarflexion WFL. Left Lower Extremity: Hip flexion WFL. Hip abduction WFL. Knee flexion WFL. Ankle dorsiflexion WFL. Ankle plantarflexion WFL. Strength: Right Upper Extremity: Shoulder flexors 4-/5. Shoulder abductors 4-/5. Elbow flexors 4-/5. Elbow extensors 4-/5. Insole Toe Snipping Machine Operator strong. Left Upper Extremity: Shoulder flexors 4-/5. Shoulder abductors 4-/5. Elbow flexors 4-/5. Elbow extensors 4-/5. Insole Toe Snipping Machine Operator strong. Right Lower Extremity: Hip flexors 4-/5. Hip abductors 4-/5. Knee flexors 4-/5. Knee extensors 4-/5. Ankle dorsiflexors 4-/5. Ankle plantarflexors 4-/5. Left Lower Extremity: Hip flexors 4-/5. Hip abductors 4-/5. Knee flexors 4-/5. Knee extensors 4-/5. Ankle dorsiflexors 4-/5. Ankle plantarflexors 4-/5. Bed Mobility/Transfers: Sit to stand with independent Stand to sit with independent Bed to reclining chair with independent Reclining chair to bed with independent Gait: Instructed patient with level surface ambulation of 100 feet + 50 feet requiring supervision with no assistive device. Cintia decreased. Step height decreased. Step length decreased. Moderate shortness of breath with persistent dull ache on the left side of her chest noted after ambulation activity for the session. Balance: Static Sitting: Normal Dynamic Sitting: Normal Static Standing: Fair Dynamic Standing: Fair Special Tests: Mobility Limitations Standardized Measure [facility] 6 clicks Basic Mobility Inpatient Short Form: Raw Score: 24 CMS Score: 0% deficit Informed Consent/Education: Patient was instructed in purpose of PT consult and plan of care. Agreeable to proceed with established PT POC to achieve personal goals. Assessment: Patient presents with clinical signs and symptoms consistent with current/admitting diagnoses that have resulted to mobility limitations, gait instability, generalized weakness, and overall ADL decline as demonstrated by the following impairment level findings: 1. Decreased strength to B UE/LE major muscle groups 2. Impaired standing balance 3. Impaired activity tolerance 4. Shortness of breath 5. Fatigue Impairments are contributing to the following functional limitations: 1. Difficulty with ambulation without assistive device 2. Increased completion time for mobility ADL performance 3. Increased risk for falls 4. Difficulty with managing steps alone safely Patient is assessed as a [id number] low complexity based on the following: History: 76-year-old female with past medical history as indicated above Examination: Demonstrable impairment in strength, balance, and mobility level with underlying impairments and functional limitations as exhibited above as well as deficit score of 0% utilizing the [facility] Mobility Inpatient Short Form Presentation: Evolving Decision Makin complexity Goals: Goals X1 week 1. Supine-Sit independent 2. Sit-Supine independent 3. Sit-Stand independent 4. Stand-Sit independent with no AD 5. Bed-Chair independent with no AD 6. Chair-Bed independent with no AD 7. Independent gait on level surface with use of no AD for at least 300 feet without report of pain nor dyspnea 8. Independent stair negotiation while holding onto one rail for at least 10 steps without report of pain nor dyspnea 9. Independent with home exercise program 10. Good static and dynamic standing balance/tolerance Plan of Care/Treatment Plan: 1x/day, 7 days/week x 1 week. Plan of care has been reviewed with the TRIM CREW SUPERVISOR providing the service under Physical Therapy direction. Initiate Physical Therapy intervention for pain management as needed, strengthening, bed mobility, transfers, gait, stairs, balance training, and use of assistive device. DISCHARGE RECOMMENDATIONS: [X] Home with no services. NO equipment needs at this time. [] Home with services [specify] [] Home with outpatient PT [] [] SNF for continued rehabilitation [] [] Fdc Care [] [] SNF versus LTC based on ability to participate and progress [] TREATMENT CODE/TIME: 82237 x 20 minutes, 14622 x 14 minutes beginning at 9:58 AM. Thank you for the opportunity to participate in the care of this patient. Antonia Ramirez PT, DPT, CLT [facility] [place], [place]
[2022-06-29] MEDS: CEFEPIME 2 GM in Normal Saline 100 ML IVPB (12:10)
--- NOTE | 2022-06-29 14:57 | PGE_ITS ---
Date of Service Date of service: 06/29/22 Time of Service: 15:01 Assessment and Plan Assessment and plan (1) Obesity, morbid: Status: Chronic Assessment and plan: Contributes, likely, to her LAI and pseudo-restriction (seen of PFTs). (2) Atrial fibrillation: Status: Chronic Assessment and plan: Now in sinus rhythm. Cont amiodarone and metoprolol. Cont apixaban. Qualifiers: Atrial fibrillation type: longstanding persistent Qualified Code(s): I48.11 - Longstanding persistent atrial fibrillation (3) Essential hypertension: Status: Acute Assessment and plan: Cont metoprolol Monitor. (4) Pneumonia: Status: Acute Assessment and plan: Clinically improving. WBC count better. On 0.5L supplemental O2 with saturation of 97%. Cont cefepime and azithromycin. Mucinex. IS (5) Asthma: Assessment and plan: She has an asthma dx and has albuterol on home med list. PFTs on 03/09/22 were normal. No response to bronchodilators. LIkley pseudo- restriction due to an elevated BMI. Qualifiers: Asthma severity: mild Asthma persistence: intermittent Asthma complication type: uncomplicated Qualified Code(s): J45.20 - Mild intermittent asthma, uncomplicated Subjective Subjective Patient reports: no new complaints, feels better, shortness of breath (with exertion. ) and afebrile Exam Narrative Exam Narrative: Sitting in chair. States she ate some breakfast but appetite is diminished. Const General: cooperative and no acute distress Nutritional Appearance: obese Orientation: alert and oriented x3 HENMT Head: normal to inspection Ears: hearing grossly normal bilaterally Eyes General: appearance normal, both eyes and all related structures Sclera: sclerae normal Neck Neck: full ROM and no JVD Resp Effort & Inspection: able to speak in complete sentences and other (Mild increased WOB) Auscultation: clear to auscultation bilaterally and diminished lung sounds Cardio Rate: regular rate Rhythm: regular rhythm Heart Sounds: S1 normal and S2 normal GI Inspection: non-distended Palpation: soft and nontender Skin General skin exam: no rashes or lesions noted Neuro General: no focal motor deficits Cranial Nerves: facial strength normal Speech: speech normal Extrem General: no pedal edema and no calf tenderness Psych Appearance: grossly normal Mood: congruent mood Affect: normal affect Objective Last Vital Signs Temp 36.9 C 06/29/22 11:18 Pulse 58 L 06/29/22 11:18 Resp 24 06/29/22 11:18 BP 112/56 L 06/29/22 11:18 Pulse Ox 97 06/29/22 11:38 Laboratory Results - last 24 hr 06/28/22 06/29/22 06/29/22 14:24 06:35 06:35 WBC 21.61 H RBC 4.13 Hgb 9.3 L Hct 31.3 L MCV 76 L MCH 22.5 L MCHC 29.7 L RDW 20.4 H Plt Count 332 MPV 9.0 Immature Gran % 1.0 Neutrophils % 88.9 Lymphocytes % 4.4 Monocytes % 4.8 Eosinophils % 0.5 Basophils % 0.4 Nucleated RBC % 0.0 Absolute Neutrophils 19.21 H Absolute Lymphocytes 0.95 L Absolute Monocytes 1.04 H Absolute Eosinophils 0.11 Absolute Basophils 0.09 RBC Morphology See Below Hypochromasia 1+ Anisocytosis 2+ Microcytosis 1+ VBG Lactate Sodium 131 L Potassium 4.4 Chloride 94 L Carbon Dioxide 27.9 Anion Gap 9.1 BUN 62 H Creatinine 2.8 H Est GFR (CKD-EPI 2020) 17.08 Glucose 114 H Calcium 9.4 Troponin I < 50 06/29/22 06:35 WBC RBC Hgb Hct MCV MCH MCHC RDW Plt Count MPV Immature Gran % Neutrophils % Lymphocytes % Monocytes % Eosinophils % Basophils % Nucleated RBC % Absolute Neutrophils Absolute Lymphocytes Absolute Monocytes Absolute Eosinophils Absolute Basophils RBC Morphology Hypochromasia Anisocytosis Microcytosis VBG Lactate 2.2 H* Sodium Potassium Chloride Carbon Dioxide Anion Gap BUN Creatinine Est GFR (CKD-EPI 2020) Glucose Calcium Troponin I
--- NOTE | 2022-06-29 15:49 | CHAPLAIN ---
Maliha was sitting up in the chair when I visited. I introduced myself, explained my role and offered support. Maliha said she is fine and thanked me for visiting. If she stays another day I will visit again.
[2022-06-29] MEDS: Insulin Aspart 300 UNITS/3 ML PEN SC (17:10)
[2022-06-29] MEDS: Insulin Glargine 300 UNITS/3 ML PEN 10 UNITS SC (19:37)
[2022-06-29] MEDS: Simvastatin 10 MG TAB PO (19:54)
[2022-06-30] VITALS: PULSE 59
[2022-06-30 02:44] VITALS: BP 101/54; PULSE 52; RESP 20; TEMP 36.8; O2SAT 93
[2022-06-30] MEDS: Levothyroxine 25 MCG TAB PO (06:31)
[2022-06-30 06:34] LABS: Absolute Basophil Count 0.04 10^3/uL (0.0-0.2); Absolute Eosinophil Count 0.26 10^3/uL (0.0-0.7); Absolute Lymphocyte Count 0.96 10^3/uL (1.2-3.4); Absolute Monocyte Count 0.94 10^3/uL (0.1-0.8); Absolute Neutrophil Count 10.27 10^3/uL (1.2-6.7); Basophils % 0.3; Eosinophils % 2.1; HCT 29.1 % (36.0-46.0); HGB 8.8 g/dL (11.2-15.7); Immature Grans % 0.8; Lymphocytes % 7.6; MCH 22.6 pg (27.0-33.0); MCHC 30.2 % (32.0-36.0); MCV 75 fL (80-95); MPV 9.7 fL (8.0-11.0); Monocytes % 7.5; Neutrophils % 81.7; Platelet Count 318 10^3/uL (130-400); RBC 3.89 10^6/uL (3.93-5.22); RDW 20.6 % (11.7-14.6); RDW-SD 55.3 fL; WBC 12.57 10^3/uL (4.4-10.8)
[2022-06-30 07:00] VITALS: PULSE 52
[2022-06-30 07:08] LABS: Anisocytosis 2+; Diff Comment RBC Morph Reviewed; Microcytosis 2+
[2022-06-30 07:17] LABS: Anion Gap 11.4 mmol/L (3-11); BUN 70 mg/dL (7-18); CO2 25.6 mmol/L (21.0-32.0); CREATININE 2.6 mg/dL (0.55-1.02); Calcium 9.3 mg/dL (8.5-10.1); Chloride 97 mmol/L (98-107); Estimated GFR 18.67 (mL/min/1.73m2); Glucose 106 mg/dL (74-106); Potassium 4.2 mmol/L (3.5-5.1); Sodium 134 mmol/L (136-145)
[2022-06-30 07:27] VITALS: BP 131/63; PULSE 55; RESP 18; TEMP 36.7; O2SAT 91
[2022-06-30] MEDS: Apixaban 5 MG TAB PO (08:49)
[2022-06-30] MEDS: Magnesium Chloride 64 MG TABCR PO (08:49)
[2022-06-30] MEDS: Allopurinol 100 MG TAB PO (08:49)
[2022-06-30] MEDS: Torsemide 20 MG TAB 40 MG PO (08:50)
[2022-06-30] MEDS: Pantoprazole 40 MG TABCR PO (08:50)
[2022-06-30] MEDS: Potassium Chloride 20 MEQ TABCR PO (08:50)
[2022-06-30] MEDS: Cholecalciferol (Vitamin D3) 1,000 UNIT TAB 1000 UNITS PO (08:50)
[2022-06-30] MEDS: Sucralfate 1 GM TAB PO ×2 (08:50→11:24)
[2022-06-30] MEDS: guaiFENesin 600 MG TABCR PO (08:50)
[2022-06-30] MEDS: Amiodarone 200 MG TAB PO (08:50)
[2022-06-30] MEDS: Metoprolol CR 100 MG TABCR PO (08:51)
--- NOTE | 2022-06-30 08:57 | PDOC.CMPRO ---
- If Service Date Differs Date of service: 06/30/22 Time of Service: 08:57 Care Management Progress Note S/O: A: Maliha is a 76 year old woman admitted on 06/28/22 with pneumonia P:Maliha will likely be discharged home with no new services. She will follow up with cardiology, her PCP and plan of care and transport with family.CM will continue to support Maliha and assess for discharge needs.
--- NOTE | 2022-06-30 09:31 | W.PM.DS.N ---
Date of service: 06/30/22 Time of Service: 09:32 DS: Diagnosis Discharge Diagnosis (1) Obesity, morbid: Status: Chronic (2) Atrial fibrillation: Status: Chronic (3) Essential hypertension: Status: Acute (4) Pneumonia: Status: Acute (5) Asthma: Discharge Plan Disposition Patient Disposition: Home Condition: Improving Discharge Details Reason For Visit: Right Sided Pneumonia Admit Date/Time: 06/28/22 12:19 Admit Provider: Mervin Monk Attending Provider: Mervin Monk Primary Care Provider: Kimberly Nicole Hospital Course Hospital Course: This is a 76 yo female with a PMH of atrial fibrillation on apixaban, HTN, HLD, hypothyroidism, LAI, CHF, CKD, DM on insulin, s/p TAVR 1 year ago.? Her SOA began the evening before presentation and has been noticed at rest, worsened with exertion.? She has not noted an pedal edema or wt gain.? + mild cough w/o sputum. N F/C, abd pain/N/V, dysuria/frequency. In the ED her CXR showed a dense infiltrate in right midlung field. WBC count 25.2.? VBG lactate elevated at 4.1.? Na mildly low at 133.? K 4.8. BUN 54. Cr 2.6. Glucose 129. Blood cultures drawn Cefepime initiated. Her WBC count approached normal at 12.57. Her dyspnea on exertion improved and she did not require supplemental O2 at rest. Her creatinine was initially 2.6, then increased to 2.8 and then back to 2.6. Adequate oral intake encouraged. She will d/c on a course of cefpodoxime for 5 days. PCP follow up in 1-2 weeks. Cardiology appt as per their recommendation (5 months from visit in Apr). Home Meds and New Rx's Prescriptions: New cholecalciferol (vitamin D3) 25 mcg (1,000 unit) Tablet 1,000 units PO DAILY Qty: 0 0RF cefpodoxime 200 mg tablet 200 mg PO BID Qty: 10 0RF Rx Instructions: must administer with a meal/food First dose in the AM of 07/01/22 Continued albuterol sulfate 90 mcg/actuation HFA aerosol inhaler 2 puff IH QID PRN metolazone 5 mg tablet 5 mg PO .COMPLEX Qty: 60 5RF Rx Instructions: 5 mg PO As directed; Take 1 pill Mondays and , 1 hour prior to Lasix metoprolol succinate 100 mg tablet extended release 24 hr 100 mg PO DAILY Qty: 90 3RF (DME) pen needle, diabetic [BD Ultra-Fine Mini Pen Needle] 31 gauge x 3/16 needle See Rx Instructions .Route Qty: 100 3RF Rx Instructions: As directed levothyroxine 25 mcg tablet 25 mcg PO DAILY sucralfate 1 gram tablet 1 g PO AC & HS Qty: 120 12RF acetaminophen [Tylenol] 325 mg tablet 325 - 650 mg PO Q4H PRN PRN (Reason: pain) Qty: 30 0RF (DME) blood sugar diagnostic Strip See Dose Instructions .ROUTE .MEDSUPPLY Qty: 400 3RF Dose Instruction: As directed Rx Instructions: use tid and prn.Accu-Chek Smart View Test Strip magnesium chloride 64 mg tablet,delayed release (DR/EC) 64 mg PO BID Qty: 180 3RF Eliquis 5 mg tablet 5 mg PO BID Qty: 60 11RF simvastatin 10 mg tablet 10 mg PO QPM Qty: 90 3RF (DME) diabetic extra depth shoes See Rx Instructions .Route .MEDSUPPLY Qty: 1 0RF Rx Instructions: As directed pantoprazole 40 mg tablet,delayed release (DR/EC) 40 mg PO DAILY Qty: 30 5RF allopurinol 100 mg tablet 100 mg PO DAILY Qty: 90 1RF insulin glargine 100 unit/mL (3 mL) insulin pen 10 unit subcut QPM Qty: 15 3RF torsemide 20 mg tablet 40 mg PO DAILY Qty: 60 5RF potassium chloride 20 mEq tablet,ER particles/crystals 20 meq PO BIDWMEAL Qty: 60 5RF amiodarone 200 mg tablet 200 mg PO DAILY Qty: 90 3RF colchicine 0.6 mg tablet 0.6 mg PO DAILY PRN (Reason: gout) Qty: 20 3RF Discharge Instructions Instructions: Community Acquired Pneumonia (DC) Activity:: Activity as Tolerated Equipment/Supplies:: No Equipment Needed Diet:: Resume usual home diet Discharge Orders Discharge Orders: Discharge Order (Routine); Ordered 06/30/22 Ordered By: Mervin Monk DS: Summary Time Spent with Patient providing and/or coordinating discharge services: Greater than 30 minutes Status at Discharge Functional status at discharge: independent ambulation Overall status at discharge: patient is progressing back to baseline Mental Status: mental status grossly normal Speech and Movement: speech and movement normal Mood: congruent mood Affect: normal affect Exam Narrative Exam Narrative: Sitting in chair. Less shortness of air with ambulation. Feels well and would like to go home. Const General: cooperative and no acute distress Nutritional Appearance: obese Orientation: alert and oriented x3 HENMT Head: normal to inspection Ears: hearing grossly normal bilaterally Eyes General: appearance normal, both eyes and all related structures Sclera: sclerae normal Neck Neck: full ROM and no JVD Resp Effort & Inspection: able to speak in complete sentences Auscultation: clear to auscultation bilaterally and diminished lung sounds Cardio Rate: regular rate Rhythm: regular rhythm Heart Sounds: S1 normal and S2 normal GI Inspection: non-distended Palpation: soft and nontender Skin General skin exam: no rashes or lesions noted Neuro General: no focal motor deficits Cranial Nerves: facial strength normal Speech: speech normal Extrem General: no pedal edema and no calf tenderness Psych Appearance: grossly normal Mental Status: mental status grossly normal Speech and Movement: speech and movement normal Mood: congruent mood Affect: normal affect DS: Data Vitals/I&O Vitals and I&O: Vital Signs Temperature 36.7 C 06/30/22 07:27 Temperature Source Tympanic 06/30/22 07:27 Pulse 55 L 06/30/22 07:27 Pulse Rhythm Regular 06/30/22 09:03 Pulse 74 06/28/22 13:31 Respiratory Rate 18 06/30/22 07:27 Respiratory Effort 06/30/22 04:00 Respiratory Depth Normal 06/30/22 09:03 Respiratory Pattern Normal 06/30/22 09:03 Blood Pressure 131/63 06/30/22 07:27 Blood Pressure Mean 62 06/28/22 13:31 Blood Pressure Position Sitting 06/28/22 11:14 Pulse Oximetry 91 L 06/30/22 07:27 Oxygen Delivery Method Room Air 06/30/22 07:27 Oxygen Flow Rate 0 06/30/22 07:27 Pain Level 0 06/30/22 07:27 Comment 06/29/22 20:27 Intake & Output 06/29/22 06/29/22 06/30/22 11:59 23:59 11:59 Intake Total 10 / 600 590 / 600 840 / 840 Output Total 700 / 1350 650 / 1350 1150 / 1150 Balance -690 / -750 -60 / -750 -310 / -310 Weight 105 kg 103.8 kg Intake: IV 10 / 110 100 / 110 Oral 490 / 490 840 / 840 Output: Urine 700 / 1350 650 / 1350 1150 / 1150 Other: Urine Color Dark Nery Yellow Yellow Urine Appearance Clear Clear Clear Urine Odor Normal Normal Comment up independently to void Voiding Methods Toilet Toilet Data Completed and Pending Labs on day of discharge: Labs from last 24 hours 06/30/22 06/30/22 06/30/22 06:55 05:54 05:54 WBC 12.57 H RBC 3.89 L Hgb 8.8 L Hct 29.1 L MCV 75 L MCH 22.6 L MCHC 30.2 L RDW 20.6 H Plt Count 318 MPV 9.7 Immature Gran % 0.8 Neutrophils % 81.7 Lymphocytes % 7.6 Monocytes % 7.5 Eosinophils % 2.1 Basophils % 0.3 Nucleated RBC % 0.0 Absolute Neutrophils 10.27 H Absolute Lymphocytes 0.96 L Absolute Monocytes 0.94 H Absolute Eosinophils 0.26 Absolute Basophils 0.04 RBC Morphology See Below Anisocytosis 2+ Microcytosis 2+ Sodium 134 L Cancelled Potassium 4.2 Cancelled Chloride 97 L Cancelled Carbon Dioxide 25.6 Cancelled Anion Gap 11.4 H Cancelled BUN 70 H Cancelled Creatinine 2.6 H Cancelled Est GFR (CKD-EPI 2020) 18.67 Cancelled Glucose 106 Cancelled Calcium 9.3 Cancelled Preliminary micro results at discharge 06/28/22 12:40 Blood Culture - Preliminary Blood NO GROWTH 24 HOURS 06/28/22 12:25 Blood Culture - Preliminary Blood NO GROWTH 24 HOURS PFSH All Active Problems Obesity, morbid (Chronic) a. BMI of 52 Atrial fibrillation (Chronic 06/23/12) 02/19 start Tikosyn 06/21 and 11/20 recurrent 2013 ablation at [facility] [place] 2012 at [facility] [place], normal LVEF and valves 05/2021 RVR, s/p RODRIGUEZ CV and change to amiodarone. Essential hypertension (Acute 08/13/13) Hyperlipidemia (Acute) Hypothyroidism (Chronic 12/06/14) Obstructive sleep apnea syndrome (Chronic 09/26/12) DX SEP 2012 AT [facility]; wears CPAP machine. Gout (Chronic) intermittent, diet based. CHF (congestive heart failure) (Chronic) On amiodarone therapy (Acute) Mitral stenosis with regurgitation (Chronic) Malignant hypertensive heart and CKD (chronic kidney disease) stage IV (Acute) Iron deficiency anemia due to chronic blood loss (Acute) Type 2 diabetes mellitus without complication, with long-term current use of insulin (Acute) Pneumonia (Acute) Medical History Asthma Bilateral bunions Colon polyp (07/10/18) 12/19 tubular adenoma Diabetic neuropathy Diverticulosis Former smoker (08/16/14) 5 pack yr history Gastroesophageal reflux disease GI bleed had melena transiently in 02/2021; unable to be evaluated due to AV stenosis. 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 tachycardia [facility] current use of antiarrhythmic medical therapy (08/21/13) Osteoarthritis Peptic ulcer disease with hemorrhage hx x 3 Pre-ulcerative corn or callous Restless legs (01/18/13) sleep study low iron (not anemic) Severe aortic stenosis Surgical History History of esophagogastroduodenoscopy (EGD) (~05/2018) 07/10/18 History of open sigmoidectomy S/P colonoscopy (~07/10/18) Status post abdominal hysterectomy Status post appendectomy Status post total bilateral knee replacement Status post transcatheter aortic valve replacement (TAVR) using bioprosthesis (~04/2021) Complicated by extravasation of contrast on iliofemoral angiography. 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 Son No problems noted. Social History Smoking/Tobacco Use Status: Former Tobacco Use Quit Date: 08/08/72 Tobacco: How many years used: 4 Second Hand Exposure: No Smoking risk assessment performed?: Yes Alcohol Intake: never Drug use: Never Substance use type: does not use Caregiver/Support person: No Household members: spouse Housing: house Communication Needs: None current occupation: [employer] Pets and animals: Yes Pets and animals: dog(s) Sexually active: Yes Do you think of yourself as: straight/heterosexual Current gender identity: female What is your relationship status?: How often do you talk on the phone with friends or family?: twice per week How often do you get together with friends or relatives?: three or more times per week How often do you attend orthodox or oriental orthodox services?: 4 or more times per year Do you belong to any clubs or organized social groups?: no Panel score (0-1 are the most socially isolated patients): 3 What type of physical activity do you participate in: walking Duration: < 15 minutes/day Frequency: 1-2 times per week Radha/Pentecostal: Latter-Day Special radha needs: No Seatbelt use: always Drive intox or ride w/intox lyft driver: No Do you feel safe at home: Yes Do you feel safe in your relationship?: Yes
--- NOTE | 2022-06-30 09:51 | PDOC.CMDIS ---
- If Service Date Differs Date of service: 06/30/22 Time of Service: 09:51 LACE Index Scoring Tool - Questions: Length of Stay (in days): 2 Acuity (Admit via E.D.?): Yes Comorbidities: Diabetes w/o Complication, Congestive Heart Failure, Liver or Renal Disease E.D. Visits: 6 - Answers: Total Score: 14 Risk of Readmission: High Risk Care Management Discharge Reason for Hospitalization: SOB Discharge Plan: Maliha will be discharged home with no new services. She will follow up with cardiology, her PCP and plan of care and transport with her . Patient/Family Education Needs: Review of dischgarge instructions, limitations, follow up plan, activityy. Ask Me Three
[2022-06-30 11:17] VITALS: BP 126/74; PULSE 55; RESP 18; TEMP 36.4; O2SAT 92
[2022-06-30] MEDS: Normal Saline Flush 10 ML SYR IVP (11:20)
[2022-06-30] MEDS: CEFEPIME 2 GM in Normal Saline 100 ML IVPB (11:21)
--- NOTE | 2022-06-30 18:00 | PT.INDS ---
Date of service: 06/29/22 PT Notes Visit Reasons: Right Sided Pneumonia Physical Therapy Inpatient Discharge Summary Date: 06/30/2022 Dates of Service: 06/29/2022 only Referring Doctor:? Mervin Monk MD PT Orders: PT CONSULT: Eval/treat Precautions: Fall. Standard. Activity as tolerated.? On 0.5 L of oxygen per minute. Patient Profile/Admitting Diagnosis:? Maliha is a 76-year-old female who presented to the ED on 06/28/2022 due to complaints of intermittent right-sided chest pain.? Patient is diagnosed with atrial fibrillation, essential hypertension, pneumonia, and asthma. PMHX: All Active Problems? Obesity, morbid (Chronic) a. BMI of 52 Atrial fibrillation (Chronic 06/23/12) 02/19 start Tikosyn 06/21 and 11/20 recurrent 2012 ablation at [facility] [place] echo 2012 at [facility] [place], normal LVEF and valves 05/2021 RVR, s/p RODRIGUEZ CV and change to amiodarone. Essential hypertension (Acute 08/13/13) Hyperlipidemia (Acute) Hypothyroidism (Chronic 12/06/14) Obstructive sleep apnea syndrome (Chronic 09/26/12) DX SEP 2012 AT [facility]; wears CPAP machine. Gout (Chronic) intermittent, diet based. CHF (congestive heart failure) (Chronic) On amiodarone therapy (Acute) Mitral stenosis with regurgitation (Chronic) Malignant hypertensive heart and CKD (chronic kidney disease) stage IV (Acute) Iron deficiency anemia due to chronic blood loss (Acute) Type 2 diabetes mellitus without complication, with long-term current use of insulin (Acute) Pneumonia (Acute) Medical History? Asthma Bilateral bunions Colon polyp (07/10/18) 12/19 tubular adenoma Diabetic neuropathy Diverticulosis Former smoker (08/16/14) 5 pack yr history Gastroesophageal reflux disease GI bleed had melena transiently in 02/2021; unable to be evaluated due to AV stenosis. 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 tachycardia group home current use of antiarrhythmic medical therapy (08/21/13) Osteoarthritis Peptic ulcer disease with hemorrhage hx x 3 Pre-ulcerative corn or callous Restless legs (01/18/13) sleep study low iron (not anemic) Severe aortic stenosis Surgical History? History of esophagogastroduodenoscopy (EGD) (~05/2018) 07/10/18 History of open sigmoidectomy S/P colonoscopy (~07/10/18) Status post abdominal hysterectomy Status post appendectomy Status post total bilateral knee replacement Status post transcatheter aortic valve replacement (TAVR) using bioprosthesis (~04/2021) Complicated by extravasation of contrast on iliofemoral angiography.? 2 covered stents placed in the artery EIA extending into the R CAPABILITY LEAD Social History/Home Situation: Lives with in a private home with no steps to enter.? Bedroom is on the second floor of the house with a flight of steps and a rail on one side. ? Prior to admission. Equipment Owned/DME: FWW, SPC Subjective: NT. See most recent COMMERCIAL SPECIALIST notes. Objective: General Observation: NT. See most recent COMMERCIAL SPECIALIST notes. Mental Status: NT. See most recent COMMERCIAL SPECIALIST notes. Pain: NT. See most recent COMMERCIAL SPECIALIST notes. Vital Signs: NT. See most recent COMMERCIAL SPECIALIST notes. ROM: Right Upper Extremity: ? Shoulder Flexion WFL. Shoulder abduction WFL. Elbow flexion WFL. Wrist flexion WFL. Functional opening and closing of hand WFL. Left Upper Extremity:? Shoulder Flexion WFL. Shoulder abduction WFL. Elbow flexion WFL. Wrist flexion WFL. Functional opening and closing of hand WFL. Right Lower Extremity: Hip flexion WFL. Hip abduction WFL. Knee flexion WFL. Ankle dorsiflexion WFL. Ankle plantarflexion WFL. Left Lower Extremity: Hip flexion WFL. Hip abduction WFL. Knee flexion WFL. Ankle dorsiflexion WFL. Ankle plantarflexion WFL. Strength: Right Upper Extremity: Shoulder flexors 4-/5. Shoulder abductors 4-/5. Elbow flexors 4-/5. Elbow extensors 4-/5. Nitrogen Operator strong. Left Upper Extremity: Shoulder flexors 4-/5. Shoulder abductors 4-/5. Elbow flexors 4-/5. Elbow extensors 4-/5. Nitrogen Operator strong. Right Lower Extremity: Hip flexors 4-/5. Hip abductors 4-/5. Knee flexors 4-/5. Knee extensors 4-/5. Ankle dorsiflexors 4-/5. Ankle plantarflexors 4-/5. Left Lower Extremity: Hip flexors 4-/5. Hip abductors 4-/5. Knee flexors 4-/5. Knee extensors 4-/5. Ankle dorsiflexors 4-/5. Ankle plantarflexors 4-/5. Bed Mobility/Transfers: Sit to stand with independent Stand to sit with independent Bed to reclining chair with independent Reclining chair to bed with independent Gait: Instructed patient with level surface ambulation of 100 feet + 50 feet requiring supervision with no assistive device. Cintia decreased. Step height decreased. Step length decreased.? Moderate shortness of breath with persistent dull ache on the left side of her chest noted after ambulation activity for the session. Balance: Static Sitting: Normal Dynamic Sitting: Normal Static Standing: Fair Dynamic Standing:? Fair Special Tests: Mobility Limitations Standardized Measure [facility] 6 clicks Basic Mobility Inpatient Short Form: Raw Score: 24? CMS Score: 0% deficit? ? ? Assessment: Patient feels confident about not needing PT as she feels she is almost at baseline and when her pneumonia resolves she knows everything will be back to how it was. She does not feel that she needs any services at this time. Goals: Goals X1 week 1. Supine-Sit independent MET 2. Sit-Supine independent MET 3. Sit-Stand independent MET 4. Stand-Sit independent with no AD MET 5. Bed-Chair independent with no AD MET 6. Chair-Bed independent with no AD MET 7. Independent gait on level surface with use of no AD for at least 300 feet without report of pain nor dyspnea NOT MET 8. Independent stair negotiation while holding onto one rail for at least 10 steps without report of pain nor dyspnea NOT MET 9. Independent with home exercise program NOT MET 10. Good static and dynamic standing balance/tolerance MET DISCHARGE RECOMMENDATIONS: [X] ? Home with no services.? No equipment needs at this time. [] ? Home with services [specify] [] ? Home with outpatient PT [] [] ? SNF for continued rehabilitation [] [] ? Register In [facility] [] [] ? SNF versus LTC based on ability to participate and progress [] TREATMENT CODE/TIME: MD Thank you for the opportunity to participate in the care of this patient. Antonia Ramirez PT, DPT, CLT [facility] [place], [place]
== END 2022-06-30 12:16 | disposition home or self-care (01) | DRG 194 ==
LOC: ER 13:14 → MS 13:54
PROVIDERS: Admitting Provider Family Medicine; Emergency Provider Student in an Organized Health Care Education/Training Program; PCP Family Medicine; Visit Provider Family Medicine
DX: J18.9 Pneumonia, unspecified organism (principal); I13.0 Hypertensive heart and chronic kidney disease with heart failure and stage 1 through stage 4 chronic kidney disease, or unspecified chronic kidney disease; Z68.42 Body mass index [BMI] 45.0-49.9, adult; N18.4 Chronic kidney disease, stage 4 (severe); E66.01 Morbid (severe) obesity due to excess calories; I34.0 Nonrheumatic mitral (valve) insufficiency; J45.20 Mild intermittent asthma, uncomplicated; I50.9 Heart failure, unspecified; D50.0 Iron deficiency anemia secondary to blood loss (chronic); E03.9 Hypothyroidism, unspecified; E11.40 Type 2 diabetes mellitus with diabetic neuropathy, unspecified; Z87.891 Personal history of nicotine dependence; I48.91 Unspecified atrial fibrillation; E78.5 Hyperlipidemia, unspecified; Z79.01 Long term (current) use of anticoagulants; G47.33 Obstructive sleep apnea (adult) (pediatric); Z90.49 Acquired absence of other specified parts of digestive tract; Z95.3 Presence of xenogenic heart valve; Z87.11 Personal history of peptic ulcer disease; M1A.9XX0 Chronic gout, unspecified, without tophus (tophi)
CPT/HCPCS: 36415; 80048; 80053; 82805; 84145; 87040; 87637; 93005; 94640; 97161; 97530; 99285; 71045; 83605; 83735; 83880; 84484; 85025; 85379; 93010; 99223; 99232; 99239; J0456; J1940; J7620

== ENCOUNTER 2022-07-22 02:10 | Outpatient (CLI) | payer MEDICARE, SELFPAY ==
--- NOTE | 2022-07-22 08:46 | DI.RAD_ITS ---
Exam(s) XR CHEST 2V PA LATERAL EXAM: XR CHEST 2V PA LATERAL CLINICAL HISTORY: f/u pneumonia,J18.9 TECHNIQUE: 2D digital imaging was performed of the chest. Two images were obtained. PA and lateral views were obtained. COMPARISON: CR XR CHEST 2V PA LATERAL from 05/07/2018 CR,XR XR PORTABLE CHEST AP from 01/18/2022 FINDINGS: MEDIASTINUM: Normal. HEART: Stable cardiomegaly. PULMONARY VASCULATURE: Normal. LUNGS: Chronic interstitial findings are present. No superimposed consolidating infiltrate is seen. PLEURAL SPACE: No pleural effusion or pneumothorax. BONE:Within normal limits for the patient's age. OTHER FINDINGS:Normal. IMPRESSION: Chronic interstitial disease. No focal consolidation. DATA REPOSITORY: RADIATION DOSE DELIVERED:
== END 2022-07-22 02:30 ==
LOC: DI 02:10
PROVIDERS: PCP Family Medicine; Visit Provider Family Medicine
DX: J18.9 Pneumonia, unspecified organism (principal); J84.9 Interstitial pulmonary disease, unspecified
CPT/HCPCS: 71046

== ENCOUNTER → 2022-09-24 09:47 | Outpatient (BNVA) | payer MEDICARE, SELFPAY | PROVIDERS: PCP Family Medicine; Visit Provider Internal Medicine Cardiovascular Disease | DX: I48.11 Longstanding persistent atrial fibrillation (principal); I50.813 Acute on chronic right heart failure; Z95.3 Presence of xenogenic heart valve; Z79.899 Other long term (current) drug therapy; E66.9 Obesity, unspecified | CPT/HCPCS: 99214; 99213 ==

== ENCOUNTER 2022-10-13 10:25 | Outpatient (CLI) | payer MEDICARE, SELFPAY ==
[2022-10-13 12:27] LABS: Abs Immature Grans 0.04 10^3/uL (0.0-0.06); Absolute Basophil Count 0.07 10^3/uL (0.0-0.2); Absolute Eosinophil Count 0.34 10^3/uL (0.0-0.7); Absolute Lymphocyte Count 1.77 10^3/uL (1.2-3.4); Absolute Monocyte Count 0.97 10^3/uL (0.1-0.8); Absolute Neutrophil Count 5.32 10^3/uL (1.2-6.7); Basophils % 0.8; HCT 38.1 % (36.0-46.0); HGB 10.7 g/dL (11.2-15.7); Immature Grans % 0.5; Lymphocytes % 20.8; MCH 21.1 pg (27.0-33.0); MCHC 28.1 % (32.0-36.0); MCV 75 fL (80-95); MPV 8.8 fL (8.0-11.0); Monocytes % 11.4; Neutrophils % 62.5; Platelet Count 449 10^3/uL (130-400); RBC 5.08 10^6/uL (3.93-5.22); RDW 19.4 % (11.7-14.6); WBC 8.51 10^3/uL (4.4-10.8)
[2022-10-13 12:33] LABS: ALT 40 U/L (14-59); AST 42 U/L (15-37); Albumin 3.5 g/dL (3.4-5.0); Alkaline Phosphatase 85 U/L (46-116); Anion Gap 12.3 mmol/L (3-11); BUN 64 mg/dL (7-18); Bilirubin, Total 0.4 mg/dL (0.2-1.0); CO2 31.7 mmol/L (21.0-32.0); CREATININE 2.3 mg/dL (0.55-1.02); Calcium 9.7 mg/dL (8.5-10.1); Chloride 96 mmol/L (98-107); Estimated GFR 21.62 (mL/min/1.73m2); Glucose 137 mg/dL (74-106); Potassium 3.3 mmol/L (3.5-5.1); Sodium 140 mmol/L (136-145); Total Protein 8.5 g/dL (6.4-8.2)
[2022-10-13 12:39] LABS: Hemoglobin A1C 8.1 % (<5.7)
== END 2022-10-13 10:26 | disposition home or self-care (01) ==
LOC: LOS 10:25
PROVIDERS: PCP Family Medicine; Visit Provider Family Medicine
DX: Z00.00 Encounter for general adult medical examination without abnormal findings (principal); I13.10 Hypertensive heart and chronic kidney disease without heart failure, with stage 1 through stage 4 chronic kidney disease, or unspecified chronic kidney disease; N18.4 Chronic kidney disease, stage 4 (severe); E11.9 Type 2 diabetes mellitus without complications; Z79.4 Long term (current) use of insulin
CPT/HCPCS: 36415; 80053; 83036; 85025

== ENCOUNTER 2022-10-19 13:23 | Emergency (ER) | payer MEDICARE, SELFPAY ==
[2022-10-19] VITALS (26 sets, daily range): BP systolic 96–125; BP diastolic 45–79; PULSE 63–107; RESP 15–21; TEMP 36.3; O2SAT 91–96
--- NOTE | 2022-10-19 13:15 | RT.EKG_ITS ---
APPROVED REPORT Exam: Resting ECG Reason for Exam: chest pain Patient Location: E HR:89 bpm ECG Measurements Heart Rate 89 AXIS IN [id number] P [id number] QRSd 161 QRS -66 QT 444 T 95 QTc 540 Conclusion Atrial flutter with predominant 3:1 AV block. Left bundle branch block.
--- NOTE | 2022-10-19 13:45 | DI.RAD_ITS ---
Exam(s) XR CHEST 2V PA LATERAL EXAM: XR CHEST 2V PA LATERAL CLINICAL HISTORY: palpitations TECHNIQUE: 2D digital imaging was performed. COMPARISON: CR XR CHEST 2V PA LATERAL from 07/22/2022 FINDINGS: HEART: Normal size. Aorta: Enlarged, unchanged. Aortic valve prosthesis. PULMONARY VASCULATURE: Normal. LUNGS: Clear. PLEURAL SPACE: No pleural effusion or pneumothorax. BONE:Scoliosis and degenerative changes. Degenerative changes of the shoulders bilateral chronic rot ator cuff tears IMPRESSION: No acute abnormality. DATA REPOSITORY: RADIATION DOSE DELIVERED:
--- NOTE | 2022-10-19 13:45 | DI.CT_ITS ---
Exam(s) CT HEAD WO EXAM: CT HEAD WO CLINICAL HISTORY: deizziness, resolving. TECHNIQUE: Imaging Protocol: Axial computed tomography images with coronal and sagittal reformatted images were created and reviewed COMPARISON: No exams were available for comparison FINDINGS: Ventricles and Extra axial spaces: Normal in size and morphology for the patient's age. Hemorrhage: None. Cerebral parenchyma: Atrophy. White matter changes consistent with small vessel disease. Midline shift: None. Brainstem/Cerebellum: Normal. Calvarium: Wound calcific excrescence off right frontal skull superiorly measuring 12 millimeters. T his could represent calcified meningioma. There is no mass effect upon the adjacent brain. Visualized Paranasal sinuses/Mastoids: Clear. IMPRESSION: No acute abnormality. RADIATION DOSE DELIVERED: 755.68mGy.cm Total DLP 755.68mGy.cm Total DLP DATA REPOSITORY: All CT scans at this facility are submitted to the National Radiology Data Registry (NRDR) Dose Index Registry (DIR) with the [employer] (ACR). RADIATION OPTIMIZATION: All CT scans at this facility use at least one of these dose optimization te chniques: automated exposure control; mA and/or kV adjustment per patient size (includes targeted exa ms where dose is matched to clinical indication); or iterative reconstruction.
--- NOTE | 2022-10-19 13:46 | ED.GENADUL_ITS ---
Discharge Plan Disposition Patient Disposition: Home Condition: Improving Discharge Details Clinical Impression: Acute dehydration, Acute hypokalemia Primary Care Provider: Kimberly Nicole ED Provider: Slava Reagan Home Meds and New Rx's Prescriptions: Continued albuterol sulfate 90 mcg/actuation HFA aerosol inhaler 2 puff IH QID PRN (DME) pen needle, diabetic [BD Ultra-Fine Mini Pen Needle] 31 gauge x 3/16 needle See Rx Instructions .Route Qty: 100 3RF Rx Instructions: As directed levothyroxine 25 mcg tablet 25 mcg PO DAILY sucralfate 1 gram tablet 1 g PO AC & HS Qty: 120 12RF metoprolol succinate 100 mg tablet extended release 24 hr 150 mg PO DAILY (DME) diabetic extra depth shoes See Rx Instructions .Route .MEDSUPPLY Qty: 1 0RF Rx Instructions: As directed acetaminophen [Tylenol] 325 mg tablet 325 - 650 mg PO Q4H PRN PRN (Reason: pain) Qty: 30 0RF (DME) blood sugar diagnostic Strip See Dose Instructions .ROUTE .MEDSUPPLY Qty: 400 3RF Dose Instruction: As directed Rx Instructions: use tid and prn.Accu-Chek Smart View Test Strip magnesium chloride 64 mg tablet,delayed release (DR/EC) 64 mg PO BID Qty: 180 3RF simvastatin 10 mg tablet 10 mg PO QPM Qty: 90 3RF potassium chloride 20 mEq tablet,ER particles/crystals 20 meq PO BIDWMEAL Qty: 60 5RF amiodarone 200 mg tablet 200 mg PO DAILY Qty: 90 3RF colchicine 0.6 mg tablet 0.6 mg PO DAILY PRN (Reason: gout) Qty: 20 3RF Eliquis 5 mg tablet 5 mg PO BID Qty: 60 11RF metolazone 5 mg tablet 5 mg PO .COMPLEX Qty: 60 5RF Rx Instructions: 5 mg PO As directed; Take 1 pill Mondays and , 1 hour prior to Lasix allopurinol 100 mg tablet 100 mg PO DAILY Qty: 90 1RF pantoprazole 40 mg tablet,delayed release (DR/EC) 40 mg PO DAILY Qty: 30 5RF insulin glargine 100 unit/mL (3 mL) insulin pen 15 unit subcut QPM Qty: 15 3RF cholecalciferol (vitamin D3) 25 mcg (1,000 unit) Tablet 1,000 units PO DAILY Qty: 0 0RF No Action torsemide 20 mg tablet 40 mg PO DAILY Qty: 60 5RF Discharge Instructions Instructions: Dehydration (ED), Hypokalemia (ED) Additional Instructions: Please hold your torsemide for 2 full days of dosing. May increase potassium containing foods in the diet such as bananas, strawberries or tree nuts such as cashews or almonds. Please follow-up with cardiology at the end of the week as planned. You will return for a blood draw on to recheck your potassium and kidney function. Return to the ER for any acute concerns in the interim. Medical Decision Making This is a 76-year-old female presents from home. She states she went out to her freezer and well outside the home felt the abrupt onset of lightheadedness and a spinning/vertiginous sensation. it was associated with nausea but no emesis. She states her left shoulder ached. She noted that her pulse oximeter registered a heart rate approximately 110 after returning to the home. She denies syncope. She denies to me chest pain or recent illness. Patient arrives blood pressure 113/69, pulse of 98, she is oxygenating normally. Orthostatic vital signs obtained and are borderline positive with position changes. Differential diagnosis includes dehydration, electrolyte abnormalities, arrhythmia, transient rapid atrial fibrillation, must exclude underlying myocardial infarction. The patient was placed on a traffic monitor specialist, screening labs obtained and she is referred for chest x-ray and CT scan of the head. Laboratories will note potassium 2.7. Sodium 137, chloride 92, bicarb 32, BUN 82, creatinine 2.6. The renal function is elevated over her baseline. Noted BNP 1283, with a recent range of up to 5000. Troponin is negative. Imaging studies reveal an unremarkable chest x-ray and CT scan of the head without acute intracranial findings. Please see the formal reports. Patient given 500 cc normal saline, potassium supplemented both IV and oral. She is observed and repeat laboratories obtained. Potassium improved to 3.1 and repeat troponin negative. Patient is improving. I will have her hold her torsemide for 2 days. She has follow-up at the end of the week and cardiology. We will obtain a blood draw on to repeat potassium and renal function and she will restart her torsemide at that time. HPI General Mode of arrival: wheelchair . Date/Time Provider Initiated Documentation: 10/19/22 13:25 . Limitations to Documentation: no limitations . Information obtained by: patient and family . History of Present Illness 76 year old F presents to the emergency department with the chief complaint of Dizziness at home this morning, improving, described as moderate, and is localized to the head. Patient started experiencing this minute(s) and it has been now resolved. No relieving factors improve symptom(s), No exacerbating factors reported . Patient notes loss of appetite and other (Left shoulder discomfort/ache, improving); denies cough, fever/chills, headaches and syncope. Patient did receive the following treatments prior to arrival, none Related Data Home Medications Medication Instructions Recorded Confirmed albuterol sulfate 90 mcg/actuation 2 puff inhalation QID PRN 04/17/18 10/13/22 aerosol inhaler acetaminophen 325 mg tablet 325 - 650 mg PO Q4H PRN PRN pain 05/24/18 10/13/22 (Tylenol) #30 tabs blood sugar diagnostic #400 ea 07/29/20 10/13/22 magnesium chloride 64 mg 64 mg PO BID #180 tabs 04/07/21 10/13/22 (magnesium chloride) tablet,delayed release levothyroxine 25 mcg tablet 25 mcg PO DAILY 08/21/21 10/13/22 simvastatin 10 mg tablet 10 mg PO QPM #90 tabs 11/27/21 10/13/22 sucralfate 1 gram tablet 1 g PO AC & HS #120 tabs 02/05/22 10/13/22 pen needle, diabetic 31 gauge x #100 ea 03/12/22 10/13/2210/21 (BD Ultra-Fine Mini Pen Needle) potassium chloride 20 mEq 20 meq PO BIDWMEAL #60 tabs 05/03/22 10/13/22 tablet,extended release(part/cryst) amiodarone 200 mg tablet 200 mg PO DAILY #90 tabs 06/01/22 10/13/22 colchicine 0.6 mg tablet 0.6 mg PO DAILY PRN gout #20 tabs 06/08/22 10/13/22 cholecalciferol (vitamin D3) 25 1,000 units PO DAILY #0 tabs 06/30/22 10/13/22 mcg (1,000 unit) tablet apixaban 5 mg tablet (Eliquis) 5 mg PO BID #60 tabs 08/03/22 10/13/22 metolazone 5 mg tablet 5 mg PO .COMPLEX #60 tabs 08/23/22 09/24/22 allopurinol 100 mg tablet 100 mg PO DAILY #90 tabs 09/03/22 10/13/22 pantoprazole 40 mg tablet,delayed 40 mg PO DAILY #30 tabs 10/04/22 10/13/22 release torsemide 20 mg tablet 40 mg PO DAILY #60 tabs 10/04/22 10/13/22 diabetic extra depth shoes #1 ea 10/13/22 10/13/22 metoprolol succinate 100 mg 150 mg PO DAILY 10/13/22 10/13/22 tablet,extended release 24 hr insulin glargine 100 unit/mL (3 15 unit (0.15 mL) subcut QPM #15 mL 10/14/22 mL) subcutaneous pen Previous Rx's Medication Instructions Recorded acetaminophen 325 mg tablet 325 - 650 mg PO Q4H PRN PRN pain 05/24/18 (Tylenol) #30 tabs blood sugar diagnostic #400 ea 07/29/20 magnesium chloride 64 mg 64 mg PO BID #180 tabs 04/07/21 (magnesium chloride) tablet,delayed release simvastatin 10 mg tablet 10 mg PO QPM #90 tabs 11/27/21 sucralfate 1 gram tablet 1 g PO AC & HS #120 tabs 02/05/22 pen needle, diabetic 31 gauge x #100 ea 03/12/2210/21 (BD Ultra-Fine Mini Pen Needle) potassium chloride 20 mEq 20 meq PO BIDWMEAL #60 tabs 05/03/22 tablet,extended release(part/cryst) amiodarone 200 mg tablet 200 mg PO DAILY #90 tabs 06/01/22 colchicine 0.6 mg tablet 0.6 mg PO DAILY PRN gout #20 tabs 06/08/22 cholecalciferol (vitamin D3) 25 1,000 units PO DAILY #0 tabs 06/30/22 mcg (1,000 unit) tablet apixaban 5 mg tablet (Eliquis) 5 mg PO BID #60 tabs 08/03/22 metolazone 5 mg tablet 5 mg PO .COMPLEX #60 tabs 08/23/22 allopurinol 100 mg tablet 100 mg PO DAILY #90 tabs 09/03/22 pantoprazole 40 mg tablet,delayed 40 mg PO DAILY #30 tabs 10/04/22 release torsemide 20 mg tablet 40 mg PO DAILY #60 tabs 10/04/22 diabetic extra depth shoes #1 ea 10/13/22 insulin glargine 100 unit/mL (3 15 unit (0.15 mL) subcut QPM #15 mL 10/14/22 mL) subcutaneous pen Allergies Allergy/AdvReac Type Severity Reaction Status Date / Time aspirin Allergy Hives Verified 10/13/22 09:56 Penicillins Allergy Verified 10/13/22 09:56 tetracycline Allergy Verified 10/13/22 09:56 adhesive AdvReac Intermediate Topical Verified 10/13/22 09:56 Irritation General Stated Complaint: Chest Pain BROOKE: 3 Review of Systems Narrative: No syncope. No recent illness. Is improving. Has had history of rapid atrial fibrillation. Taking metoprolol 150 mg daily. No syncope. Denies headache. No peripheral edema or weight gain. 8 systems were reviewed and otherwise negative. PFSH All Active Problems (Updated 10/19/22 @ 17:12 by Slava Reagan MD) Obesity, morbid (Chronic) a. BMI of 52 Atrial fibrillation (Chronic 06/23/12) 02/19 start Tikosyn 06/21 and 11/20 recurrent [address] [facility] [place] echo [address] [facility] [place], normal LVEF and valves 05/2021 RVR, s/p RODRIGUEZ CV and change to amiodarone. Essential hypertension (Acute 08/13/13) Hyperlipidemia (Acute) Hypothyroidism (Chronic 12/06/14) Obstructive sleep apnea syndrome (Chronic 09/26/12) DX SEP 2012 AT [facility]; wears CPAP machine. Gout (Chronic) intermittent, diet based. CHF (congestive heart failure) (Chronic) On amiodarone therapy (Acute) Mitral stenosis with regurgitation (Chronic) Malignant hypertensive heart and CKD (chronic kidney disease) stage IV (Acute) Iron deficiency anemia due to chronic blood loss (Acute) Type 2 diabetes mellitus without complication, with long-term current use of insulin (Acute) Acute dehydration (Acute) Acute hypokalemia (Acute) Medical History Asthma Bilateral bunions Colon polyp (07/10/18) 12/19 tubular adenoma Diabetic neuropathy Diverticulosis Former smoker (08/16/14) 5 pack yr history Gastroesophageal reflux disease GI bleed had melena transiently in 02/2021; unable to be evaluated due to AV stenosis. 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 tachycardia detention current use of antiarrhythmic medical therapy (08/21/13) Osteoarthritis Peptic ulcer disease with hemorrhage hx x 3 Pre-ulcerative corn or callous Restless legs (01/18/13) sleep study low iron (not anemic) Severe aortic stenosis Surgical History History of esophagogastroduodenoscopy (EGD) (~05/2018) 07/10/18 History of open sigmoidectomy S/P colonoscopy (~07/10/18) Status post abdominal hysterectomy Status post appendectomy Status post total bilateral knee replacement Status post transcatheter aortic valve replacement (TAVR) using bioprosthesis (~04/2021) Complicated by extravasation of contrast on iliofemoral angiography. 2 covered stents placed in the artery EIA extending into the R [employer] OFFICER Family History Mother , 65 Thoracic aneurysm, ruptured Personal history of malignant neoplasm LYMPHOMA Father , 64 Heart disease Myocardial infarction Stroke Maternal Grandfather , 80 Heart disease Stroke Paternal Grandfather , 65 Heart disease Maternal Grandmother , 83 Heart disease Paternal Grandmother , 40 Cancer Son No problems noted. Son No problems noted. 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 [employer] Pets and animals: Yes Pets and animals: dog(s) Sexually active: Yes Do you think of yourself as: straight/heterosexual Current gender identity: female What is your relationship status?: How often do you talk on the phone with friends or family?: twice per week How often do you get together with friends or relatives?: three or more times per week How often do you attend evangelical or sabianism services?: 4 or more times per year Do you belong to any clubs or organized social groups?: no Panel score (0-1 are the most socially isolated patients): 3 What type of physical activity do you participate in: walking Duration: < 15 minutes/day Frequency: 1-2 times per week Radha/Anglican: Druze Special radha needs: No Seatbelt use: always Drive intox or ride w/intox driver license technician: No Do you feel safe at home: Yes Do you feel safe in your relationship?: Yes Exam Narrative Exam Narrative: GEN: awake, alert, oriented 3. Pleasant, well groomed, interactive. HEAD: Normocephalic, atraumatic ENT: Mucous membranes moist, oropharynx unremarkable, tympanic membranes clear bilaterally external ear exam unremarkable EYES: PERRL, EOMI NECK: Full ROM, no BRAIN, no menigismus CHEST/RESP: Nontender, clear to auscultation bilateral, no wheeze/rhonchi/rales CARDIOVASCULAR: Distant, irregularly irregular. 2+ Rad pulse bilateral ABDOMEN: Soft, nontender, no mass. +Bowel sounds EXT: Full ROM, no edema, no rash Neuro: Grossly normal neurologic exam, no motor deficits appreciated, conversant, interactive. Psych: Speech fluent, thoughts congruent, affect normal Course Vital Signs Vital signs: Vital Signs Temperature 36.3 C L 10/19/22 13:26 Pulse 98 H 10/19/22 13:26 Respiratory Rate 20 10/19/22 13:26 Blood Pressure 113/69 10/19/22 13:26 Pulse Oximetry 95 10/19/22 13:26 Temperature 36.3 C L 10/19/22 13:26 Temperature Source Oral 10/19/22 13:26 Pulse 79 10/19/22 13:31 Respiratory Rate 18 10/19/22 13:35 Respiratory Effort Short of Breath 10/19/22 13:35 Respiratory Depth Normal 10/19/22 13:35 Respiratory Pattern Normal 10/19/22 13:35 Blood Pressure 113/69 10/19/22 13:31 Blood Pressure Mean 75 10/19/22 13:31 Blood Pressure Position Supine 10/19/22 13:26 Pulse Oximetry 96 10/19/22 13:31 Oxygen Delivery Method Room Air 10/19/22 13:26 Oxygen Flow Rate 0 10/19/22 13:26 Pain Level 4 10/19/22 13:26
[2022-10-19 13:47] LABS: Abs Immature Grans 0.05 10^3/uL (0.0-0.06); Absolute Basophil Count 0.07 10^3/uL (0.0-0.2); Absolute Eosinophil Count 0.33 10^3/uL (0.0-0.7); Absolute Lymphocyte Count 1.41 10^3/uL (1.2-3.4); Absolute Monocyte Count 0.88 10^3/uL (0.1-0.8); Absolute Neutrophil Count 5.63 10^3/uL (1.2-6.7); Basophils % 0.8; Eosinophils % 3.9; HCT 39.9 % (36.0-46.0); HGB 11.4 g/dL (11.2-15.7); Immature Grans % 0.6; Lymphocytes % 16.8; MCH 21.3 pg (27.0-33.0); MCHC 28.6 % (32.0-36.0); MCV 75 fL (80-95); MPV 8.6 fL (8.0-11.0); Monocytes % 10.5; Neutrophils % 67.4; Platelet Count 453 10^3/uL (130-400); RBC 5.35 10^6/uL (3.93-5.22); RDW 19.5 % (11.7-14.6); RDW-SD 50.9 fL; WBC 8.37 10^3/uL (4.4-10.8)
[2022-10-19 14:01] LABS: INR 1.2 (0.9-1.1); PTT Activated 24.5 sec (21.5-31.9); Prothrombin Time 12.1 sec (9.3-11.0)
[2022-10-19 14:09] LABS: Anisocytosis 1+; Diff Comment Diff Reviewed; Hypochromasia 2+; Microcytosis 2+
[2022-10-19 14:14] LABS: ALT 46 U/L (14-59); AST 45 U/L (15-37); Albumin 3.8 g/dL (3.4-5.0); Alkaline Phosphatase 94 U/L (46-116); Anion Gap 12.1 mmol/L (3-11); Bilirubin, Total 0.4 mg/dL (0.2-1.0); CO2 32.9 mmol/L (21.0-32.0); CREATININE 2.6 mg/dL (0.55-1.02); Calcium 9.8 mg/dL (8.5-10.1); Chloride 92 mmol/L (98-107); Estimated GFR 18.67 (mL/min/1.73m2); Glucose 126 mg/dL (74-106); Magnesium 2.5 mg/dL (1.8-2.4); NT-proBNP 1283 pg/mL (<300); Sodium 137 mmol/L (136-145); Troponin I < 50 ng/L (<or=60)
[2022-10-19 14:18] LABS: BUN 82 mg/dL (7-18); Potassium 2.7 mmol/L (3.5-5.1)
[2022-10-19] MEDS: Normal Saline 250 ML IV (14:32)
[2022-10-19] MEDS: POTASSIUM CHLORIDE 10 MEQ/100 ML BAG 100 MEQ IVPB (14:32)
[2022-10-19] MEDS: Potassium Chloride Liquid 20 MEQ PKT PO (14:33)
[2022-10-19] MEDS: Normal Saline 250 ML 500 ML IV (15:34)
[2022-10-19 16:52] LABS: Potassium 3.1 mmol/L (3.5-5.1)
[2022-10-19 17:02] LABS: Troponin I < 50 ng/L (<or=60)
== END 2022-10-19 17:28 | disposition home or self-care (01) ==
PROVIDERS: Emergency Provider Emergency Medicine; PCP Family Medicine
DX: E86.0 Dehydration (principal); E87.6 Hypokalemia; M25.512 Pain in left shoulder; R94.4 Abnormal results of kidney function studies; J45.909 Unspecified asthma, uncomplicated; E11.40 Type 2 diabetes mellitus with diabetic neuropathy, unspecified; Z79.4 Long term (current) use of insulin; R00.2 Palpitations; R06.02 Shortness of breath
CPT/HCPCS: 36415; 80053; 93005; 96361; 96365; 99284; 70450; 71046; 83735; 83880; 84132; 84484; 85025; 85610; 85730; 93010; 99285; J3480

== ENCOUNTER 2022-12-12 15:38 | Inpatient (IN) | payer MEDICARE, SELFPAY ==
[2022-12-12] VITALS (36 sets, daily range): BP systolic 104–128; BP diastolic 50–93; PULSE 74–116; RESP 14–30; TEMP 36.5–36.7; O2SAT 94–96
--- NOTE | 2022-12-12 15:30 | RT.EKG_ITS ---
APPROVED REPORT Exam: Resting ECG Reason for Exam: irregular heart rate Patient Location: E HR:104 bpm ECG Measurements Heart Rate 104 AXIS AR 156 P 0 QRSd 144 QRS -68 QT 394 T 101 QTc 519 Conclusion Sinus tachycardia with irregular rate...V-rate 85-124, variation>10% Left bundle branch block...QRSd>120, broad/notched R afib, left axis, LBBB
--- NOTE | 2022-12-12 16:15 | DI.RAD_ITS ---
Exam(s) XR PORTABLE CHEST AP EXAM: XR PORTABLE CHEST AP CLINICAL HISTORY: afib. TECHNIQUE: 2D digital imaging was performed. COMPARISON: CR XR CHEST 2V PA LATERAL from 10/19/2022 FINDINGS: Single AP portable view. Again noted is mild cardiomegaly, aortic valve TAVR, and calcified mitral valve annulus. Mediastinum not widened. There is pulmonary venous hypertension pattern but no airspace pulmonary edema. No pleural effusions . IMPRESSION: Pulmonary venous hypertension pattern but no sharmila airspace pulmonary edema. No pleural effusions. Aortic valve TAVR again evident DATA REPOSITORY: RADIATION DOSE DELIVERED:
--- NOTE | 2022-12-12 16:21 | ED.GENADUL_ITS ---
Discharge Plan Disposition Patient Disposition: Admit to [facility] Discharge Details Chief Complaint: Palpitatns Clinical Impression: CHF (congestive heart failure), Hypoxia Primary Care Provider: Kimberly Nicole ED Provider: Mervin Smith Home Meds and New Rx's Prescriptions: No Action albuterol sulfate 90 mcg/actuation HFA aerosol inhaler 2 puff IH QID PRN (DME) pen needle, diabetic [BD Ultra-Fine Mini Pen Needle] 31 gauge x 3/16 needle See Rx Instructions .Route Qty: 100 3RF Rx Instructions: As directed levothyroxine 25 mcg tablet 25 mcg PO DAILY sucralfate 1 gram tablet 1 g PO AC & HS Qty: 120 12RF (DME) diabetic extra depth shoes See Rx Instructions .Route .MEDSUPPLY Qty: 1 0RF Rx Instructions: As directed acetaminophen [Tylenol] 325 mg tablet 325 - 650 mg PO Q4H PRN PRN (Reason: pain) Qty: 30 0RF magnesium chloride 64 mg tablet,delayed release (DR/EC) 64 mg PO BID Qty: 180 3RF amiodarone 200 mg tablet 200 mg PO DAILY Qty: 90 3RF colchicine 0.6 mg tablet 0.6 mg PO DAILY PRN (Reason: gout) Qty: 20 3RF Eliquis 5 mg tablet 5 mg PO BID Qty: 60 11RF metolazone 5 mg tablet 5 mg PO .COMPLEX Qty: 60 5RF Rx Instructions: 5 mg PO As directed; Take 1 pill Mondays and , 1 hour prior to Lasix allopurinol 100 mg tablet 100 mg PO DAILY Qty: 90 1RF pantoprazole 40 mg tablet,delayed release (DR/EC) 40 mg PO DAILY Qty: 30 5RF torsemide 20 mg tablet 40 mg PO DAILY Qty: 60 5RF insulin glargine 100 unit/mL (3 mL) insulin pen 15 unit subcut QPM Qty: 15 3RF potassium chloride 20 mEq tablet,ER particles/crystals 20 meq PO BIDWMEAL Qty: 60 5RF (DME) blood sugar diagnostic Strip See Dose Instructions .ROUTE .MEDSUPPLY Qty: 400 3RF Dose Instruction: As directed Rx Instructions: use tid and prn.Accu-Chek Smart View Test Strip metoprolol succinate 100 mg tablet extended release 24 hr 150 mg PO DAILY Qty: 180 3RF simvastatin 10 mg tablet 10 mg PO QPM Qty: 90 3RF cholecalciferol (vitamin D3) 25 mcg (1,000 unit) Tablet 1,000 units PO DAILY Qty: 0 0RF Medical Decision Making 77-year-old female history of A-fib, CHF presents with shortness of breath and palpitations over the last several days, and out of A-fib over the past several months, recent cardiac catheterization, on anticoagulation. Patient currently stable, mild tachycardia irregularly irregular rhythm A-fib with left bundle branch block on EKG. Pitting edema to level of shins bilaterally, high clinical suspicion for component of CHF versus electrolyte abnormality versus less likely ACS low suspicion for PE or aortic pathology. Trial of Lasix, will assess basic labs chest x-ray will consider rate control if further tachycardia develops however patient is in the high 90s currently. 18: 03 patient did desat to high 80s on room air improved symptomatology and oxygenation on 2 L nasal cannula now 95 to 97%. History physical labs and imaging consistent with CHF exacerbation. Will admit for diuresis and O2 therapy HPI General Date/Time Provider Initiated Documentation: 12/12/22 15:50 . HPI Narrative: 77-year-old female history of A-fib, CHF, presents with shortness of breath and palpitations over the last several days, has been in and out of A-fib for several months is anticoagulated. Related Data Home Medications Medication Instructions Recorded Confirmed albuterol sulfate 90 mcg/actuation 2 puff inhalation QID PRN 04/17/18 12/12/22 aerosol inhaler acetaminophen 325 mg tablet 325 - 650 mg PO Q4H PRN PRN pain 05/24/18 12/12/22 (Tylenol) #30 tabs magnesium chloride 64 mg 64 mg PO BID #180 tabs 04/07/21 12/12/22 (magnesium chloride) tablet,delayed release levothyroxine 25 mcg tablet 25 mcg PO DAILY 08/21/21 12/12/22 sucralfate 1 gram tablet 1 g PO AC & HS #120 tabs 02/05/22 12/12/22 pen needle, diabetic 31 gauge x #100 ea 03/12/22 10/13/22/16 (BD Ultra-Fine Mini Pen Needle) amiodarone 200 mg tablet 200 mg PO DAILY #90 tabs 06/01/22 12/12/22 colchicine 0.6 mg tablet 0.6 mg PO DAILY PRN gout #20 tabs 06/08/22 12/12/22 cholecalciferol (vitamin D3) 25 1,000 units PO DAILY #0 tabs 06/30/22 12/12/22 mcg (1,000 unit) tablet apixaban 5 mg tablet (Eliquis) 5 mg PO BID #60 tabs 08/03/22 12/12/22 metolazone 5 mg tablet 5 mg PO .COMPLEX #60 tabs 08/23/22 12/12/22 allopurinol 100 mg tablet 100 mg PO DAILY #90 tabs 09/03/22 12/12/22 pantoprazole 40 mg tablet,delayed 40 mg PO DAILY #30 tabs 10/04/22 12/12/22 release torsemide 20 mg tablet 40 mg PO DAILY #60 tabs 10/04/22 12/12/22 diabetic extra depth shoes #1 ea 10/13/22 10/13/22 insulin glargine 100 unit/mL (3 15 unit (0.15 mL) subcut QPM #15 mL 10/14/22 12/12/22 mL) subcutaneous pen potassium chloride 20 mEq 20 meq PO BIDWMEAL #60 tabs 11/04/22 12/12/22 tablet,extended release(part/cryst) blood sugar diagnostic #400 ea 11/20/22 metoprolol succinate 100 mg 150 mg PO DAILY #180 tabs 12/09/22 12/12/22 tablet,extended release 24 hr simvastatin 10 mg tablet 10 mg PO QPM #90 tabs 12/09/22 12/12/22 Previous Rx's Medication Instructions Recorded acetaminophen 325 mg tablet 325 - 650 mg PO Q4H PRN PRN pain 05/24/18 (Tylenol) #30 tabs magnesium chloride 64 mg 64 mg PO BID #180 tabs 04/07/21 (magnesium chloride) tablet,delayed release sucralfate 1 gram tablet 1 g PO AC & HS #120 tabs 02/05/22 pen needle, diabetic 31 gauge x #100 ea 03/12/22/16 (BD Ultra-Fine Mini Pen Needle) amiodarone 200 mg tablet 200 mg PO DAILY #90 tabs 06/01/22 colchicine 0.6 mg tablet 0.6 mg PO DAILY PRN gout #20 tabs 06/08/22 cholecalciferol (vitamin D3) 25 1,000 units PO DAILY #0 tabs 06/30/22 mcg (1,000 unit) tablet apixaban 5 mg tablet (Eliquis) 5 mg PO BID #60 tabs 08/03/22 metolazone 5 mg tablet 5 mg PO .COMPLEX #60 tabs 08/23/22 allopurinol 100 mg tablet 100 mg PO DAILY #90 tabs 09/03/22 pantoprazole 40 mg tablet,delayed 40 mg PO DAILY #30 tabs 10/04/22 release torsemide 20 mg tablet 40 mg PO DAILY #60 tabs 10/04/22 diabetic extra depth shoes #1 ea 10/13/22 insulin glargine 100 unit/mL (3 15 unit (0.15 mL) subcut QPM #15 mL 10/14/22 mL) subcutaneous pen potassium chloride 20 mEq 20 meq PO BIDWMEAL #60 tabs 11/04/22 tablet,extended release(part/cryst) blood sugar diagnostic #400 ea 11/20/22 metoprolol succinate 100 mg 150 mg PO DAILY #180 tabs 12/09/22 tablet,extended release 24 hr simvastatin 10 mg tablet 10 mg PO QPM #90 tabs 12/09/22 Allergies Allergy/AdvReac Type Severity Reaction Status Date / Time aspirin Allergy Hives Verified 12/12/22 15:49 Penicillins Allergy Verified 12/12/22 15:49 tetracycline Allergy Verified 12/12/22 15:49 adhesive AdvReac Intermediate Topical Verified 12/12/22 15:49 Irritation General Stated Complaint: Palpitatns BROOKE: 2 Review of Systems Narrative: Review of Systems Constitutional: negative Eyes: negative ENT: negative Cardiovascular: Palpitations Respiratory: Shortness of breath Gastrointestinal: negative : negative Musculoskeletal: negative Skin: negative Neurologic: negative Psych: negative PFSH All Active Problems (Updated 12/12/22 @ 18:04 by Mervin Smith MD) Obesity, morbid (Chronic) a. BMI of 52 Atrial fibrillation (Chronic 06/23/12) 02/19 start Tikosyn 06/21 and 11/20 [place] [facility] [place] [facility] [place] LVEF and valves 05/2021 RVR, s/p RODRIGUEZ CV and change to amiodarone. Essential hypertension (Acute 08/13/13) Hyperlipidemia (Acute) Hypothyroidism (Chronic 12/06/14) Obstructive sleep apnea syndrome (Chronic 09/26/12) DX SEP 2012 AT [facility]; wears CPAP machine. Gout (Chronic) intermittent, diet based. CHF (congestive heart failure) (Chronic) On amiodarone therapy (Acute) Mitral stenosis with regurgitation (Chronic) Malignant hypertensive heart and CKD (chronic kidney disease) stage IV (Acute) Iron deficiency anemia due to chronic blood loss (Acute) Type 2 diabetes mellitus without complication, with long-term current use of insulin (Acute) CHF (congestive heart failure) (Chronic) Hypoxia (Acute) Medical History Asthma Bilateral bunions Colon polyp (07/10/18) 12/19 tubular adenoma Diabetic neuropathy Diverticulosis Former smoker (08/16/14) 5 pack yr history Gastroesophageal reflux disease GI bleed had melena transiently in 02/2021; unable to be evaluated due to AV stenosis. 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 2 covered stents placed in the artery EIA extending into the R [employer] Family History Mother , 65 Thoracic aneurysm, ruptured Personal history of malignant neoplasm LYMPHOMA Father , 64 Heart disease Myocardial infarction Stroke Maternal Grandfather , 80 Heart disease Stroke Paternal Grandfather , 65 Heart disease Maternal Grandmother , 83 Heart disease Paternal Grandmother , 40 Cancer Son No problems noted. Son No problems noted. Social History Smoking/Tobacco Use Status: Former Tobacco Use Quit Date: 08/08/72 Tobacco: How many years used: 4 Second Hand Exposure: No Smoking risk assessment performed?: Yes Alcohol Intake: never Drug use: Never Substance use type: does not use Caregiver/Support person: No Household members: spouse Housing: house Communication Needs: None current occupation: [employer] Pets and animals: Yes Pets and animals: dog(s) Sexually active: Yes Do you think of yourself as: straight/heterosexual Current gender identity: female What is your relationship status?: How often do you talk on the phone with friends or family?: twice per week How often do you get together with friends or relatives?: three or more times per week How often do you attend anglican or cheondoism services?: 4 or more times per year Do you belong to any clubs or organized social groups?: no Panel score (0-1 are the most socially isolated patients): 3 What type of physical activity do you participate in: walking Duration: < 15 minutes/day Frequency: 1-2 times per week Radha/Confucianist: Synagogue Special radha needs: No Seatbelt use: always Drive 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 ride 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 Do you feel safe at home: Yes Do you feel safe in your relationship?: Yes Additional Social history: at bedside Exam Narrative Exam Narrative: Physical Examination General: alert, awake, cooperative, resting comfortably, no acute distress HEENT: normocephalic, atraumatic; PERRL, EOM intact, conjunctiva normal; no nasal discharge; moist mucous membranes, oral and pharyngeal mucosa normal, tolerating secretions Neck: supple, trachea midline; full ROM Chest: normal to inspection Respiratory: normal respiratory effort, speaking in full sentences, clear to auscultation, no wheezing, rales or rhonchi Cardiac: Irregularly irregular rhythm, mild tachycardia, S1S2 intact, no murmurs rubs or gallops GI: abdomen soft, non-tender, non-distended; no palpable mass or hepatosplenomegaly Skin: no lesions, rashes or trauma appreciated Neuro: AAOx3, normal speech, moving all extremities Extremities: Pitting edema to level of shins Psych: Appropriate mood and affect Course Vital Signs Vital signs: Vital Signs Temperature 36.5 C 12/12/22 15:43 Pulse 116 H 12/12/22 15:43 Respiratory Rate 15 12/12/22 15:43 Blood Pressure 122/84 12/12/22 15:43 Pulse Oximetry 94 12/12/22 15:43 Temperature 36.5 C 12/12/22 15:43 Temperature Source Skin 12/12/22 15:43 Pulse 89 12/12/22 16:01 Pulse 92 H 12/12/22 16:01 Respiratory Rate 15 12/12/22 16:01 Respiratory Effort Incrsd Work of Breathing 12/12/22 15:51 Blood Pressure 106/56 L 12/12/22 16:01 Blood Pressure Mean 68 12/12/22 16:01 Pulse Oximetry 94 12/12/22 15:43 Oxygen Delivery Method Room Air 12/12/22 15:43 Oxygen Flow Rate 0 12/12/22 15:43 Pain Level 5 12/12/22 15:53
[2022-12-12 16:45] LABS: Abs Immature Grans 0.04 10^3/uL (0.0-0.06); Absolute Basophil Count 0.06 10^3/uL (0.0-0.2); Absolute Eosinophil Count 0.26 10^3/uL (0.0-0.7); Absolute Lymphocyte Count 1.58 10^3/uL (1.2-3.4); Absolute Monocyte Count 0.79 10^3/uL (0.1-0.8); Absolute Neutrophil Count 6.33 10^3/uL (1.2-6.7); Basophils % 0.7; Eosinophils % 2.9; HCT 37.6 % (36.0-46.0); HGB 10.5 g/dL (11.2-15.7); Immature Grans % 0.4; Lymphocytes % 17.4; MCH 21.3 pg (27.0-33.0); MCHC 27.9 % (32.0-36.0); MCV 76 fL (80-95); MPV 9.1 fL (8.0-11.0); Monocytes % 8.7; Neutrophils % 69.9; Platelet Count 409 10^3/uL (130-400); RBC 4.94 10^6/uL (3.93-5.22); RDW 21.5 % (11.7-14.6); RDW-SD 56.9 fL; WBC 9.06 10^3/uL (4.4-10.8)
[2022-12-12] MEDS: Furosemide 40 MG/4 ML VIAL IVP (16:46)
[2022-12-12 16:59] LABS: INR 1.1 (0.9-1.1); PTT Activated 24.5 sec (21.5-31.9); Prothrombin Time 11.5 sec (9.3-11.0)
--- NOTE | 2022-12-12 17:04 | DI.VRAD_ITS ---
PROCEDURE INFORMATION: Exam: XR Chest Exam date and time: 12/12/2022 4:39 PM Age: 77 years old Clinical indication: Other: Afib TECHNIQUE: Imaging protocol: Radiologic exam of the chest. Views: 1 view. COMPARISON: CR XR CHEST 2V PA LATERAL 10/19/2022 2:15 PM FINDINGS: Lungs: Mild bibasilar atelectasis and/or pneumonitis. Pleural spaces: Unremarkable. No pleural effusion. No pneumothorax. Heart/Mediastinum: Calcification of the mitral valve annulus. Mild cardiomegaly. Vasculature: Atherosclerotic vascular disease. Atherosclerotic vascular disease. Bones/joints: Degenerative changes of the glenohumeral and acromioclavicular joints. Multilevel thoracic spine degenerative disc space narrowing and osteophyte formation. IMPRESSION: Mild bibasilar atelectasis and/or pneumonitis. No focal consolidation. Dictated and Authenticated by: Srini Quigley MD. Ordering:CHANDU Jeffries MD
[2022-12-12 17:06] LABS: Anisocytosis 2+; Diff Comment RBC Morph Reviewed; Hypochromasia 2+
[2022-12-12 17:11] LABS: ALT 41 U/L (14-59); AST 45 U/L (15-37); Albumin 3.4 g/dL (3.4-5.0); Alkaline Phosphatase 98 U/L (46-116); BUN 50 mg/dL (7-18); Bilirubin, Total 0.3 mg/dL (0.2-1.0); CREATININE 2.6 mg/dL (0.55-1.02); Calcium 9.4 mg/dL (8.5-10.1); Chloride 93 mmol/L (98-107); Estimated GFR 18.55 (mL/min/1.73m2); Glucose 274 mg/dL (74-106); NT-proBNP 2739 pg/mL (<300); Potassium 3.6 mmol/L (3.5-5.1); Sodium 134 mmol/L (136-145); TSH (W/Ref FT4) 4.21 uIU/mL (0.36-3.74); Total Protein 8.6 g/dL (6.4-8.2); Troponin I < 50 ng/L (<or=60)
[2022-12-12 17:27] LABS: FREE T4 1.12 ng/dL (0.76-1.46)
--- NOTE | 2022-12-12 19:49 | W.PM.HP.N ---
Date of service: 12/12/22 Time of Service: 19:49 Assessment and Plan Assessment and plan (1) Obesity, morbid: Status: Chronic Assessment and plan: With LIA and use of CPAP (2) Atrial fibrillation: Status: Chronic Assessment and plan: Rate controlled. Previous ablation in 2012. Cont amiodarone, apixaban, metoprolol. Telemetry. Qualifiers: Atrial fibrillation type: longstanding persistent Qualified Code(s): I48.11 - Longstanding persistent atrial fibrillation (3) Essential hypertension: Status: Acute Assessment and plan: Controlled at time of admission. Cont metoprolol. Also on torsemide and metolazone at home; now on IV lasix and metolazone. (4) Hyperlipidemia: Status: Acute Assessment and plan: Cont simvastatin 10mg HS (5) Hypothyroidism: Status: Chronic Assessment and plan: Cont replacement tx. (6) Mitral stenosis with regurgitation: Status: Chronic Assessment and plan: Would benefit from intervetion which is being explored by cardiology at [facility]. One issue that is precluding her from a trial at [facility] is her renal function. She states they had discussed a nephrology consult but she states that hasn't occurred. We could arrange that. (7) Type 2 diabetes mellitus without complication, with long-term current use of insulin: Status: Acute Assessment and plan: Cont Her lantus 15 units QHS. Add SS correction dosing. Diabetic diet. (8) CHF (congestive heart failure): Status: Chronic Assessment and plan: H/O HFpEF Most recent echocardiogram at [facility] in October 2022: EF of 58%. No LV segmental wall motion abnormalities. PASP 68. Qualifiers: Heart failure type: right-sided Heart failure chronicity: acute on chronic Qualified Code(s): I50.813 - Acute on chronic right heart failure (9) CKD (chronic kidney disease) stage 4, GFR 15-29 ml/min: Status: Acute Assessment and plan: Monitor while diuresing. History of Present Illness History of Present Illness Chief Complaint: Shortness of breath, palpitations. 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 She presented to the ED with shortness of breath/BETTS progressing to dyspnea at rest and palpitations. No CP. No N/V/abd pain. Occasional cough w/o sputum. No F/C. She had a recent right heart catheterization for evaluation of her candidacy for the ENCIRCLE trial at [facility]. She was found to have an elevated RVSP that isn't compatible with the trial. Also, her GFR needs to be over 30. In the ED her RA saturation was intermittently in the upper 80's. Placed on 2L NC with sats. in the mid-upper 90's. CXR impression was mild bibasilar atelectasis and/or pneumonitis. Procalcitonin pending. She was afebrile. WBC count normal. Hgb 10.5. Na 134. K 3.6. BUN 50. Creatinine 2.6. NTProBNP 2739. She was given 40mg IV lasix and admitted for management of her volume overload. Review of Systems All systems reviewed & are unremarkable except as noted in HPI and below PFSH All Active Problems (Updated 12/12/22 @ 20:03 by Mervin Monk MD) CKD (chronic kidney disease) stage 4, GFR 15-29 ml/min (Acute) Obesity, morbid (Chronic) a. BMI of 52 Atrial fibrillation (Chronic 06/23/12) 02/19 start Tikosyn 06/21 and 11/20 recurrent 2013 ablation at [facility] echo 2012 at [facility], normal LVEF and valves 05/2021 RVR, s/p RODRIGUEZ CV and change to amiodarone. Essential hypertension (Acute 08/13/13) Hyperlipidemia (Acute) Hypothyroidism (Chronic 12/06/14) Obstructive sleep apnea syndrome (Chronic 09/26/12) DX SEP 2012 AT [facility]; wears CPAP machine. Gout (Chronic) intermittent, diet based. CHF (congestive heart failure) (Chronic) On amiodarone therapy (Acute) Mitral stenosis with regurgitation (Chronic) Malignant hypertensive heart and CKD (chronic kidney disease) stage IV (Acute) Iron deficiency anemia due to chronic blood loss (Acute) Type 2 diabetes mellitus without complication, with long-term current use of insulin (Acute) CHF (congestive heart failure) (Chronic) Hypoxia (Acute) Medical History Asthma Bilateral bunions Colon polyp (07/10/18) 12/19 tubular adenoma Diabetic neuropathy Diverticulosis Former smoker (08/16/14) 5 pack yr history Gastroesophageal reflux disease GI bleed had melena transiently in 02/2021; unable to be evaluated due to AV stenosis. 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 tachycardia alf current use of antiarrhythmic medical therapy (08/21/13) Osteoarthritis Peptic ulcer disease with hemorrhage hx x 3 Pre-ulcerative corn or callous Restless legs (01/18/13) sleep study low iron (not anemic) Severe aortic stenosis Surgical History History of esophagogastroduodenoscopy (EGD) (~05/2018) 07/10/18 History of open sigmoidectomy S/P colonoscopy (~07/10/18) Status post abdominal hysterectomy Status post appendectomy Status post total bilateral knee replacement Status post transcatheter aortic valve replacement (TAVR) using bioprosthesis (~04/2021) Complicated by extravasation of contrast on iliofemoral angiography. 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 Son No problems noted. Social History Smoking/Tobacco Use Status: Former Tobacco Use Quit Date: 08/08/72 Tobacco: How many years used: 4 Second Hand Exposure: No Smoking risk assessment performed?: Yes Alcohol Intake: never Drug use: Never Substance use type: does not use Caregiver/Support person: No Household members: spouse Housing: house Communication Needs: None current occupation: [employer] Pets and animals: Yes Pets and animals: dog(s) Sexually active: Yes Do you think of yourself as: straight/heterosexual Current gender identity: female What is your relationship status?: How often do you talk on the phone with friends or family?: twice per week How often do you get together with friends or relatives?: three or more times per week How often do you attend sabianism or caodaism services?: 4 or more times per year Do you belong to any clubs or organized social groups?: no Panel score (0-1 are the most socially isolated patients): 3 What type of physical activity do you participate in: walking Duration: < 15 minutes/day Frequency: 1-2 times per week Radha/Adventist: Hoahaoism Special radha needs: No Seatbelt use: always 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 or 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 Do you feel safe at home: Yes Do you feel safe in your relationship?: Yes Additional Social history: at bedside Meds Allergies and Home Medications Allergies Allergy/AdvReac Type Severity Reaction Status Date / Time aspirin Allergy Hives Verified 12/12/22 15:49 Penicillins Allergy Verified 12/12/22 15:49 tetracycline Allergy Verified 12/12/22 15:49 adhesive AdvReac Intermediate Topical Verified 12/12/22 15:49 Irritation Home Medications Medication Instructions Recorded Confirmed Type albuterol sulfate 90 mcg/actuation 2 puff inhalation QID PRN 04/17/18 12/12/22 History aerosol inhaler acetaminophen 325 mg tablet 325 - 650 mg PO Q4H PRN PRN pain 05/24/18 12/12/22 Rx (Tylenol) #30 tabs magnesium chloride 64 mg 64 mg PO BID #180 tabs 04/07/21 12/12/22 Rx (magnesium chloride) tablet,delayed release levothyroxine 25 mcg tablet 25 mcg PO DAILY 08/21/21 12/12/22 History sucralfate 1 gram tablet 1 g PO AC & HS #120 tabs 02/05/22 12/12/22 Rx pen needle, diabetic 31 gauge x #100 ea 03/12/22 10/13/22 Rx 3/16 (BD Ultra-Fine Mini Pen Needle) amiodarone 200 mg tablet 200 mg PO DAILY #90 tabs 06/01/22 12/12/22 Rx colchicine 0.6 mg tablet 0.6 mg PO DAILY PRN gout #20 tabs 06/08/22 12/12/22 Rx cholecalciferol (vitamin D3) 25 1,000 units PO DAILY #0 tabs 06/30/22 12/12/22 Rx mcg (1,000 unit) tablet apixaban 5 mg tablet (Eliquis) 5 mg PO BID #60 tabs 08/03/22 12/12/22 Rx metolazone 5 mg tablet 5 mg PO .COMPLEX #60 tabs 08/23/22 12/12/22 Rx allopurinol 100 mg tablet 100 mg PO DAILY #90 tabs 09/03/22 12/12/22 Rx pantoprazole 40 mg tablet,delayed 40 mg PO DAILY #30 tabs 10/04/22 12/12/22 Rx release torsemide 20 mg tablet 40 mg PO DAILY #60 tabs 10/04/22 12/12/22 Rx diabetic extra depth shoes #1 ea 10/13/22 10/13/22 Rx insulin glargine 100 unit/mL (3 15 unit (0.15 mL) subcut QPM #15 mL 10/14/22 12/12/22 Rx mL) subcutaneous pen potassium chloride 20 mEq 20 meq PO BIDWMEAL #60 tabs 11/04/22 12/12/22 Rx tablet,extended release(part/cryst) blood sugar diagnostic #400 ea 11/20/22 Rx metoprolol succinate 100 mg 150 mg PO DAILY #180 tabs 12/09/22 12/12/22 Rx tablet,extended release 24 hr simvastatin 10 mg tablet 10 mg PO QPM #90 tabs 12/09/22 12/12/22 Rx Exam Narrative Exam Narrative: General: alert, awake, cooperative, Lying supine. NAD. NC in place HEENT: normocephalic, atraumatic; PERRL, sclera clear. Neck: FROM. No JVD Respiratory: normal respiratory effort, speaking in full sentences, faint bibasilar crackles. Cardiac: Irregularly irregular rhythm, mild tachycardia GI: abdomen soft, non-tender, non-distended Skin: no rash,lesions. Neuro: AAOx3, normal speech, moving all extremities Extremities: 1+bilateral pitting edema to level of shins Psych: Appropriate mood and affect Results Labs 12/12/22 15:34 12/12/22 15:34 Labs: Laboratory Results - last 24 hr 12/12/22 12/12/22 12/12/22 15:34 15:34 15:34 WBC 9.06 RBC 4.94 Hgb 10.5 L Hct 37.6 MCV 76 L MCH 21.3 L MCHC 27.9 L RDW 21.5 H Plt Count 409 H MPV 9.1 Immature Gran % 0.4 Neutrophils % 69.9 Lymphocytes % 17.4 Monocytes % 8.7 Eosinophils % 2.9 Basophils % 0.7 Nucleated RBC % 0.0 Absolute Neutrophils 6.33 Absolute Lymphocytes 1.58 Absolute Monocytes 0.79 Absolute Eosinophils 0.26 Absolute Basophils 0.06 RBC Morphology See Below Hypochromasia 2+ Anisocytosis 2+ PT 11.5 H INR 1.1 APTT 24.5 Sodium 134 L Potassium 3.6 Chloride 93 L Carbon Dioxide 31.0 Anion Gap 10.0 BUN 50 H Creatinine 2.6 H Est GFR (CKD-EPI 2020) 18.55 Glucose 274 H Calcium 9.4 Total Bilirubin 0.3 AST 45 H ALT 41 Alkaline Phosphatase 98 Troponin I < 50 NT-Pro-B Natriuret Pep 2739 H Total Protein 8.6 H Albumin 3.4 TSH 4.21 H Free T4 1.12 Last Vital Signs Temp 36.7 C 12/12/22 19:37 Pulse 95 H 12/12/22 19:37 Resp 18 12/12/22 19:37 BP 127/88 12/12/22 19:37 Pulse Ox 96 12/12/22 19:37 Time Spent Time spent with Patient: 40-54 minutes Time was spent: preparing to see the patient(eg.review tests), obtaining and/or reviewing separately otained hiistory, ordering medications,tests, procedures, referring, communicating with other health director of patient care, indepentently interpreting results and counseling the patient
[2022-12-12] MEDS: Apixaban 5 MG TAB PO (20:01)
[2022-12-12] MEDS: Simvastatin 10 MG TAB PO (20:02)
[2022-12-12] MEDS: Magnesium Chloride 64 MG TABCR PO (20:02)
[2022-12-12 20:11] LABS: Hemoglobin A1C 8.6 % (<5.7)
[2022-12-12 20:14] LABS: Troponin I < 50 ng/L (<or=60)
[2022-12-12 20:28] LABS: Procalcitonin 0.3 ng/mL
[2022-12-12 20:38] LABS: Lab Add On Test DONE
[2022-12-12] MEDS: Sucralfate 1 GM TAB PO (21:15)
[2022-12-12] MEDS: Insulin Glargine 300 UNITS/3 ML PEN 15 UNITS SC (21:15)
[2022-12-12] MEDS: Normal Saline Flush 10 ML SYR (21:37)
[2022-12-12] MEDS: Acetaminophen 325 MG TAB 650 MG PO (23:43)
[2022-12-13] VITALS (14 sets, daily range): BP systolic 107–117; BP diastolic 68–72; PULSE 81–117; RESP 1–20; TEMP 36.4–37; O2SAT 91–98
[2022-12-13 06:44] LABS: HCT 34.2 % (36.0-46.0); HGB 9.8 g/dL (11.2-15.7); MCH 21.4 pg (27.0-33.0); MCHC 28.7 % (32.0-36.0); MCV 75 fL (80-95); MPV 8.6 fL (8.0-11.0); Platelet Count 354 10^3/uL (130-400); RBC 4.59 10^6/uL (3.93-5.22); RDW-SD 54.9 fL; WBC 7.53 10^3/uL (4.4-10.8)
[2022-12-13 07:17] LABS: ALT 31 U/L (14-59); AST 29 U/L (15-37); Albumin 2.9 g/dL (3.4-5.0); Alkaline Phosphatase 80 U/L (46-116); Anion Gap 8.9 mmol/L (3-11); BUN 50 mg/dL (7-18); Bilirubin, Total 0.5 mg/dL (0.2-1.0); CO2 31.1 mmol/L (21.0-32.0); CREATININE 2.3 mg/dL (0.55-1.02); Calcium 9.3 mg/dL (8.5-10.1); Chloride 96 mmol/L (98-107); Estimated GFR 21.49 (mL/min/1.73m2); Glucose 114 mg/dL (74-106); Magnesium 2.1 mg/dL (1.8-2.4); Potassium 3.1 mmol/L (3.5-5.1); Sodium 136 mmol/L (136-145); Total Protein 7.5 g/dL (6.4-8.2)
[2022-12-13] MEDS: Furosemide 100 MG/10 ML VIAL 80 MG IVP ×2 (08:02→15:34)
[2022-12-13] MEDS: Magnesium Chloride 64 MG TABCR PO ×2 (08:03→21:17)
[2022-12-13] MEDS: Allopurinol 100 MG TAB PO (08:03)
[2022-12-13] MEDS: Levothyroxine 25 MCG TAB PO (08:03)
[2022-12-13] MEDS: metOLazone 2.5 MG TAB 5 MG PO (08:03)
[2022-12-13] MEDS: Amiodarone 200 MG TAB PO (08:03)
[2022-12-13] MEDS: Metoprolol CR 100 MG TABCR 150 MG PO (08:03)
[2022-12-13] MEDS: Pantoprazole 40 MG TABCR PO (08:03)
[2022-12-13] MEDS: Apixaban 5 MG TAB PO ×2 (08:04→21:17)
[2022-12-13] MEDS: Sucralfate 1 GM TAB PO ×4 (08:04→21:17)
[2022-12-13] MEDS: cefTRIAXone 1 GM/50 ML BAG IVPB (08:04)
[2022-12-13] MEDS: Insulin Aspart 300 UNITS/3 ML PEN SC ×3 (08:13→16:54)
--- NOTE | 2022-12-13 08:39 | PDOC.CMIN ---
Date of service: 12/13/22 Time of Service: 08:39 Care Management Initial [facility] Initial Assessment REASON FOR HOSPITALIZATION:: CHF PAST MEDICAL HISTORY/PAST SURGICAL HISTORY:: All Active Problems (Updated 12/12/22 @ 20:03 by Mervin Monk MD) CKD (chronic kidney disease) stage 4, GFR 15-29 ml/min (Acute) Obesity, morbid (Chronic) a. BMI of 52 Atrial fibrillation (Chronic 06/23/12) 02/19 start Tikosyn 06/21 and 11/20 recurrent 2013 ablation at [facility] echo 2012 at [facility], normal LVEF and valves 05/2021 RVR, s/p RODRIGUEZ CV and change to amiodarone. Essential hypertension (Acute 08/13/13) Hyperlipidemia (Acute) Hypothyroidism (Chronic 12/06/14) Obstructive sleep apnea syndrome (Chronic 09/26/12) DX SEP 2012 AT [facility]; wears CPAP machine. Gout (Chronic) intermittent, diet based. CHF (congestive heart failure) (Chronic) On amiodarone therapy (Acute) Mitral stenosis with regurgitation (Chronic) Malignant hypertensive heart and CKD (chronic kidney disease) stage IV (Acute) Iron deficiency anemia due to chronic blood loss (Acute) Type 2 diabetes mellitus without complication, with long-term current use of insulin (Acute) CHF (congestive heart failure) (Chronic) Hypoxia (Acute) Medical History Asthma Bilateral bunions Colon polyp (07/10/18) 12/19 tubular adenoma Diabetic neuropathy Diverticulosis Former smoker (08/16/14) 5 pack yr history Gastroesophageal reflux disease GI bleed had melena transiently in 02/2021; unable to be evaluated due to AV stenosis. 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 medical therapy (08/21/13) Osteoarthritis Peptic ulcer disease with hemorrhage hx x 3 Pre-ulcerative corn or callous Restless legs (01/18/13) sleep study low iron (not anemic) Severe aortic stenosis Surgical History History of esophagogastroduodenoscopy (EGD) (~05/2018) 07/10/18 History of open sigmoidectomy S/P colonoscopy (~07/10/18) Status post abdominal hysterectomy Status post appendectomy Status post total bilateral knee replacement Status post transcatheter aortic valve replacement (TAVR) using bioprosthesis (~04/2021) Complicated by extravasation of contrast on iliofemoral angiography. 2 covered stents placed in the artery EIA extending into the R ASSISTANT ART DIRECTOR [facility] All Active Problems (Updated 12/12/22 @ 20:03 by Mervin Monk MD) CKD (chronic kidney disease) stage 4, GFR 15-29 ml/min (Acute) Obesity, morbid (Chronic) a. BMI of 52 Atrial fibrillation (Chronic 06/23/12) 02/19 start Tikosyn 06/21 and 11/20 recurrent 2012 ablation at [facility] echo 2012 at [facility], normal LVEF and valves 05/2021 RVR, s/p RODRIGUEZ CV and change to amiodarone. Essential hypertension (Acute 08/13/13) Hyperlipidemia (Acute) Hypothyroidism (Chronic 12/06/14) Obstructive sleep apnea syndrome (Chronic 09/26/12) DX SEP 2012 AT [facility]; wears CPAP machine. Gout (Chronic) intermittent, diet based. CHF (congestive heart failure) (Chronic) On amiodarone therapy (Acute) Mitral stenosis with regurgitation (Chronic) Malignant hypertensive heart and CKD (chronic kidney disease) stage IV (Acute) Iron deficiency anemia due to chronic blood loss (Acute) Type 2 diabetes mellitus without complication, with long-term current use of insulin (Acute) CHF (congestive heart failure) (Chronic) Hypoxia (Acute) Medical History Asthma Bilateral bunions Colon polyp (07/10/18) 12/19 tubular adenoma Diabetic neuropathy Diverticulosis Former smoker (08/16/14) 5 pack yr history Gastroesophageal reflux disease GI bleed had melena transiently in 02/2021; unable to be evaluated due to AV stenosis. 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 tachycardia intermediate current use of antiarrhythmic medical therapy (08/21/13) Osteoarthritis Peptic ulcer disease with hemorrhage hx x 3 Pre-ulcerative corn or callous Restless legs (01/18/13) sleep study low iron (not anemic) Severe aortic stenosis Surgical History History of esophagogastroduodenoscopy (EGD) (~05/2018) 07/10/18 History of open sigmoidectomy S/P colonoscopy (~07/10/18) Status post abdominal hysterectomy Status post appendectomy Status post total bilateral knee replacement Status post transcatheter aortic valve replacement (TAVR) using bioprosthesis (~04/2021) Complicated by extravasation of contrast on iliofemoral angiography. 2 covered stents placed in the artery EIA extending into the R ASSISTANT ART DIRECTOR Family History Mother , 65 Thoracic aneurysm, ruptured Personal history of malignant neoplasm LYMPHOMA Father , 64 Heart disease Myocardial infarction Stroke Maternal Grandfather , 80 Heart disease Stroke Paternal Grandfather , 65 Heart disease Maternal Grandmother , 83 Heart disease Paternal Grandmother , 40 Cancer Son No problems noted. Son No problems noted. Social History Smoking/Tobacco Use Status: Former Tobacco Use Quit Date: 08/08/72 Tobacco: How many years used: 4 Second Hand Exposure: No Smoking risk assessment performed?: Yes Alcohol Intake: never Drug use: Never Substance use type: does not use Caregiver/Support person: No Household members: spouse Housing: house Communication Needs: None current occupation: [employer] Pets and animals: Yes Pets and animals: dog(s) Sexually active: Yes Do you think of yourself as: straight/heterosexual Current gender identity: female What is your relationship status?: How often do you talk on the phone with friends or family?: twice per week How often do you get together with friends or relatives?: three or more times per week How often do you attend spiritism or latter day services?: 4 or more times per year Do you belong to any clubs or organized social groups?: no Panel score (0-1 are the most socially isolated patients): 3 What type of physical activity do you participate in: walking Duration: < 15 minutes/day Frequency: 1-2 times per week Radha/Latter Day: Protestant Special radha needs: No Seatbelt use: always Drive intox or ride w/intox screw driver operator: No Do you feel safe at home: Yes Do you feel safe in your relationship?: Yes Additional Social history: at bedside
--- NOTE | 2022-12-13 09:03 | PDOC.CMIN ---
Care Management Initial [facility] Initial Assessment REASON FOR HOSPITALIZATION:: CHF PAST MEDICAL HISTORY/PAST SURGICAL HISTORY:: All Active Problems . Obesity, morbid (Chronic). a. BMI of 52. Atrial fibrillation (Chronic 06/23/12). 02/19 start Tikosyn. 06/21 and 11/20 recurrent. [place] [facility] [place] [facility] [place] normal LVEF and valves. 05/2021 RVR, s/p RODRIGUEZ CV and change to amiodarone. Essential hypertension (Acute 08/13/13). Hyperlipidemia (Acute). Hypothyroidism (Chronic 12/06/14). Obstructive sleep apnea syndrome (Chronic 09/26/12). DX SEP 2012 AT [facility]; wears CPAP machine. Gout (Chronic). intermittent, diet based. CHF (congestive heart failure) (Chronic). On amiodarone therapy (Acute). Mitral stenosis with regurgitation (Chronic). Malignant hypertensive heart and CKD (chronic kidney disease) stage IV (Acute). Iron deficiency anemia due to chronic blood loss (Acute). Type 2 diabetes mellitus without complication, with long-term current use of insulin (Acute). Pneumonia (Acute). Medical History . Asthma. Bilateral bunions. Colon polyp (07/10/18). 12/19 tubular adenoma. Diabetic neuropathy. Diverticulosis. Former smoker (08/16/14). 5 pack yr history. Gastroesophageal reflux disease. GI bleed. had melena transiently in 02/2021; unable to be evaluated due to AV stenosis. 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 tachycardia. custodial current use of antiarrhythmic medical therapy (08/21/13). Osteoarthritis. Peptic ulcer disease with hemorrhage. hx x 3. Pre-ulcerative corn or callous. Restless legs (01/18/13). sleep study. low iron (not anemic). Severe aortic stenosis. Surgical History . History of esophagogastroduodenoscopy (EGD) (~05/2018). 07/10/18. History of open sigmoidectomy. S/P colonoscopy (~07/10/18). Status post abdominal hysterectomy. Status post appendectomy. Status post total bilateral knee replacement. Status post transcatheter aortic valve replacement (TAVR) using bioprosthesis (~04/2021). Complicated by extravasation of contrast on iliofemoral angiography. 2 covered stents placed in the artery EIA extending into the R CF PREVIOUS FUNCTIONAL STATUS/SOCIAL/FAMILY SUPPORTS:: Maliha lives in a single family home in [place] with her Marcell. They have 2 sons; Eben lives in [place] and Demetrio lives down the road from his parents. 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 Maliha is independent at baseline, drives and does not have any community services. She does use a cane occasionally at night. CURRENT FUNCTIONAL STATUS:: Maliha was sitting up in bed when CM met with her. She was cordial and agreeable to conversation. Maliha stated that she feels much better than when she arrived. She did admit that she has shortness of breath, especially with activity. Maliha does not usually wear oxygen at home, but verbalized that she believes at some point she may have to. 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 While she enjoyed the work she stated it was the position classification specialist requirement that ultimately resulted in her decision to seek other employment. ADVANCE DIRECTIVES:: on file. Marcell Iqbal [facility] Has patient been provided with info about the portal/API?: Yes Did the patient sign up for the portal?: Yes CODE STATUS:: DNR/DNI INSURANCE COVERAGE / FINANCIAL ISSUES:: medicare Advantage CURRENT HOME/COMMUNITY SERVICES/EQUIPMENT:: has a cane and a walker which she uses as needed PRIMARY CARE PHYSICIAN:: Kimberly Bullock POTENTIAL DISCHARGE NEEDS:: Follow up with PCP, cardiology and plan of care PATIENT/FAMILY EDUCATION NEEDS:: Review of discharge instructions, limitations, activity, medications, follow up plan and Ask Me Three TRANSPORTATION:: via private vehicle with family PLAN:: Anticipate Maliha will discharge home with no new services when medically cleared. She will follow up with her community providers and plan of care and transport with family. CM will follow and assess for discharge planning concerns. PFSH All Active Problems (Updated 12/12/22 @ 20:03 by Mervin Monk MD) CKD (chronic kidney disease) stage 4, GFR 15-29 ml/min (Acute) Obesity, morbid (Chronic) a. BMI of 52 Atrial fibrillation (Chronic 06/23/12) 02/19 start Tikosyn 06/21 and 11/20 recurrent [place] [facility] [place] [facility] [place] normal LVEF and valves 05/2021 RVR, s/p RODRIGUEZ CV and change to amiodarone. Essential hypertension (Acute 08/13/13) Hyperlipidemia (Acute) Hypothyroidism (Chronic 12/06/14) Obstructive sleep apnea syndrome (Chronic 09/26/12) DX SEP 2012 AT [facility]; wears CPAP machine. Gout (Chronic) intermittent, diet based. CHF (congestive heart failure) (Chronic) On amiodarone therapy (Acute) Mitral stenosis with regurgitation (Chronic) Malignant hypertensive heart and CKD (chronic kidney disease) stage IV (Acute) Iron deficiency anemia due to chronic blood loss (Acute) Type 2 diabetes mellitus without complication, with long-term current use of insulin (Acute) CHF (congestive heart failure) (Chronic) Hypoxia (Acute) Medical History Asthma Bilateral bunions Colon polyp (07/10/18) 12/19 tubular adenoma Diabetic neuropathy Diverticulosis Former smoker (08/16/14) 5 pack yr history Gastroesophageal reflux disease GI bleed had melena transiently in 02/2021; unable to be evaluated due to AV stenosis. 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 2 covered stents placed in the artery EIA extending into the R EPOXY SPECIALIST Family History Mother , 65 Thoracic aneurysm, ruptured Personal history of malignant neoplasm LYMPHOMA Father , 64 Heart disease Myocardial infarction Stroke Maternal Grandfather , 80 Heart disease Stroke Paternal Grandfather , 65 Heart disease Maternal Grandmother , 83 Heart disease Paternal Grandmother , 40 Cancer Son No problems noted. Son No problems noted. Social History Smoking/Tobacco Use Status: Former Tobacco Use Quit Date: 08/08/72 Tobacco: How many years used: 4 Second Hand Exposure: No Smoking risk assessment performed?: Yes Alcohol Intake: never Drug use: Never Substance use type: does not use Caregiver/Support person: No Household members: spouse Housing: house Communication Needs: None current occupation: [employer] Pets and animals: Yes Pets and animals: dog(s) Sexually active: Yes Do you think of yourself as: straight/heterosexual Current gender identity: female What is your relationship status?: How often do you talk on the phone with friends or family?: twice per week How often do you get together with friends or relatives?: three or more times per week How often do you attend confucianism or temple services?: 4 or more times per year Do you belong to any clubs or organized social groups?: no Panel score (0-1 are the most socially isolated patients): 3 What type of physical activity do you participate in: walking Duration: < 15 minutes/day Frequency: 1-2 times per week Radha/Judaism: Buddhist Special radha needs: No Seatbelt use: always Drive intox or ride w/intox bottom hoop driver: No Do you feel safe at home: Yes Do you feel safe in your relationship?: Yes Additional Social history: at bedside
[2022-12-13] MEDS: Potassium Chloride 20 MEQ TABCR PO (09:17)
--- NOTE | 2022-12-13 09:50 | NUR.NOTE ---
Nursing Note: Patient reporting new itching to back and left leg. Noted to have hives. Also reporting tingling to tongue. Rocephin was recently given. Stopped, IV flushed. SPO2 96% on RA. No shortness of breath. Charge nurse, Astrid Mccormick made aware.
[2022-12-13] MEDS: diphenhydrAMINE 50 MG/ML VIAL IVP (10:15)
[2022-12-13] MEDS: Famotidine 20 MG/2 ML VIAL IVP (10:16)
[2022-12-13] MEDS: methylPREDNISolone SUCC 125 MG VIAL IVP (10:16)
[2022-12-13] MEDS: Normal Saline Flush 10 ML SYR (11:51)
[2022-12-13] MEDS: AZITHROMYCIN 500 MG in Normal Saline 250 ML 250 MG IVPB (12:34)
--- NOTE | 2022-12-13 14:31 | W.PM.PROGNOT ---
Date of Service Date of service: 12/13/22 Time of Service: 14:31 Assessment and Plan Assessment and plan (1) CHF (congestive heart failure): Status: Chronic Assessment and plan: HFpEF w/ evidence of pulmonary hypertension and mitral valve stenosis and regurgitation. Additionally, her Afib has not been well controlled. Continue IV furosemide. Continue daily metolazone. Obtain a cardiology consult. Qualifiers: Heart failure type: right-sided Heart failure chronicity: acute on chronic Qualified Code(s): I50.813 - Acute on chronic right heart failure (2) Rapid atrial fibrillation: Status: Acute Assessment and plan: This is not a new issue. The patient is followed by [facility] cardiology for it. She is symptomatic. Continue amiodarone 200 mg PO daily and metoprolol 150 mg PO daily. C/s cardiology. Diurese. Continue to monitor on tele. Continue anticoagulation with apixaban. (3) Mitral stenosis with regurgitation: Status: Chronic Assessment and plan: [facility] cardiology is following this as outpatient. WIll consult our cardiology to see if a possible intervention needs to be fast-tracked. (4) Acute bronchitis: Status: Suspected Assessment and plan: Check Fluvid. Abx changed to azithromycin. Trend procalcitonin. Change nebs to levalbuterol + ipratropium. (5) Allergic reaction caused by a drug: Status: Acute Assessment and plan: I have started her on cetirizine. If needed we will continue benadryl/pepcid/prednisone. (6) Essential hypertension: Status: Acute Assessment and plan: Continue metoprolol. (7) Obesity, morbid: Status: Chronic Assessment and plan: Continue CPAP as does have LAI. (8) Hypothyroidism: Status: Chronic Assessment and plan: TSH 4.21. Increase levothyroxine dose as hypothyroidism could be contributing to CHF. (9) Type 2 diabetes mellitus without complication, with long-term current use of insulin: Status: Acute Assessment and plan: Continue basal bolus insulin. (10) CKD (chronic kidney disease) stage 4, GFR 15-29 ml/min: Status: Acute Assessment and plan: Send a referral to [facility] nephrology (as was already being planned). (11) Hyperlipidemia: Status: Acute Assessment and plan: Continue simvastatin (12) Discharge planning issues: Status: Resolved Assessment and plan: DNR/DNI. Not interested in palliative care. Continues to require hospitalization Subjective Subjective Interval history since last seen: Ms Iqbal developed intense itching of her back and swelling and a prickly sensation of her tongue, as well as shortness of breath this morning during her infusion of ceftriaxone. Per our pharmacy, she has had ceftriaxone IV on prior admission for two doses without any reaction. By the time I saw her this morning (within minutes of the report), she was already feeling better. She had noticed that her forehead was itching as well. She was treated with benadryl, pepcid, and solumedrol with resolution of symptoms. On my repeat visit with her, she reports that she has a new hive on her R foot. She also reports palpitations. She states that she has had rapid rates at home a lot and that a prior cardioversion with loading with amiodarone lasted for about 3 months. Her HR is now in 110s. She is interested in seeing a associate director data & analytics. Exam Narrative Exam Narrative: General: Pleasant elderly female, sitting up in a chair, on 1 L of O2 by NC HEENT: EOMI, MMM, tongue not swollen, Mallampati III Heart: irregularly irregular rhythm, tachycardic Lungs: CTAB Abdomen: soft, nontender, nondistended Extremities: +1 BLE edema, symmetric, R foot with an urticarial lesion, 2.5 cm in diameter, at the base of 1st digit. Objective Last Vital Signs Temp 36.9 C 12/13/22 11:37 Pulse 117 H 12/13/22 11:37 Resp 20 12/13/22 11:37 BP 115/72 12/13/22 11:37 Pulse Ox 96 12/13/22 11:37 Laboratory Results - last 24 hr 12/12/22 12/12/22 12/12/22 15:34 15:34 15:34 WBC 9.06 RBC 4.94 Hgb 10.5 L Hct 37.6 MCV 76 L MCH 21.3 L MCHC 27.9 L RDW 21.5 H Plt Count 409 H MPV 9.1 Immature Gran % 0.4 Neutrophils % 69.9 Lymphocytes % 17.4 Monocytes % 8.7 Eosinophils % 2.9 Basophils % 0.7 Nucleated RBC % 0.0 Absolute Neutrophils 6.33 Absolute Lymphocytes 1.58 Absolute Monocytes 0.79 Absolute Eosinophils 0.26 Absolute Basophils 0.06 RBC Morphology See Below Hypochromasia 2+ Anisocytosis 2+ PT 11.5 H INR 1.1 APTT 24.5 Sodium 134 L Potassium 3.6 Chloride 93 L Carbon Dioxide 31.0 Anion Gap 10.0 BUN 50 H Creatinine 2.6 H Est GFR (CKD-EPI 2020) 18.55 Glucose 274 H Hemoglobin A1c Calcium 9.4 Magnesium Total Bilirubin 0.3 AST 45 H ALT 41 Alkaline Phosphatase 98 Troponin I < 50 NT-Pro-B Natriuret Pep 2739 H Total Protein 8.6 H Albumin 3.4 Procalcitonin TSH 4.21 H Free T4 1.12 Add-On Test Request 12/12/22 12/12/22 12/12/22 19:45 19:45 19:45 WBC RBC Hgb Hct MCV MCH MCHC RDW Plt Count MPV Immature Gran % Neutrophils % Lymphocytes % Monocytes % Eosinophils % Basophils % Nucleated RBC % Absolute Neutrophils Absolute Lymphocytes Absolute Monocytes Absolute Eosinophils Absolute Basophils RBC Morphology Hypochromasia Anisocytosis PT INR APTT Sodium Potassium Chloride Carbon Dioxide Anion Gap BUN Creatinine Est GFR (CKD-EPI 2020) Glucose Hemoglobin A1c Calcium Magnesium Total Bilirubin AST ALT Alkaline Phosphatase Troponin I < 50 NT-Pro-B Natriuret Pep Total Protein Albumin Procalcitonin 0.3 TSH Free T4 Add-On Test Request DONE 12/12/22 12/13/22 12/13/22 19:45 06:01 06:01 WBC 7.53 RBC 4.59 Hgb 9.8 L Hct 34.2 L MCV 75 L MCH 21.4 L MCHC 28.7 L RDW 21.0 H Plt Count 354 MPV 8.6 Immature Gran % Neutrophils % Lymphocytes % Monocytes % Eosinophils % Basophils % Nucleated RBC % Absolute Neutrophils Absolute Lymphocytes Absolute Monocytes Absolute Eosinophils Absolute Basophils RBC Morphology Hypochromasia Anisocytosis PT INR APTT Sodium 136 Potassium 3.1 L Chloride 96 L Carbon Dioxide 31.1 Anion Gap 8.9 BUN 50 H Creatinine 2.3 H Est GFR (CKD-EPI 2020) 21.49 Glucose 114 H Hemoglobin A1c 8.6 H Calcium 9.3 Magnesium 2.1 Total Bilirubin 0.5 AST 29 ALT 31 Alkaline Phosphatase 80 Troponin I NT-Pro-B Natriuret Pep Total Protein 7.5 Albumin 2.9 L Procalcitonin TSH Free T4 Add-On Test Request Time Spent with Patient Time Spent with Patient: 35-49 minutes Time was spent: preparing to see the patient(eg.review tests), obtaining and/or reviewing separately otained hiistory, ordering medications,tests, procedures, referring, communicating with other health inpatient care manager rn, indepentently interpreting results, counseling the patient and care coordination
[2022-12-13] MEDS: Potassium Chloride 20 MEQ TABCR 40 MEQ PO (15:33)
[2022-12-13] MEDS: Cetirizine 10 MG TAB PO (15:34)
[2022-12-13] MEDS: Acetaminophen 325 MG TAB 650 MG PO (15:40)
[2022-12-13] MEDS: Levalbuterol 1.25 MG/3 ML UPD VIAL UPD (15:58)
[2022-12-13] MEDS: Ipratropium 0.5 MG/2.5 ML UPD VIAL UPD ×2 (15:58→21:17)
[2022-12-13 16:42] LABS: COVID-19 PCR Negative (Negative); Influenza A PCR Negative (Negative); Influenza B PCR Negative (Negative); RSV PCR Negative (Negative)
[2022-12-13 16:46] LABS: Source Nasopharynx
[2022-12-13] MEDS: Simvastatin 10 MG TAB PO (21:17)
[2022-12-13] MEDS: Insulin Glargine 300 UNITS/3 ML PEN 15 UNITS SC (21:27)
[2022-12-14] VITALS (21 sets, daily range): BP systolic 96–141; BP diastolic 63–78; PULSE 81–108; RESP 8–20; TEMP 35.5–36.8; O2SAT 92–98
[2022-12-14] MEDS: Levothyroxine 75 MCG TAB 37.5 MCG PO (06:04)
[2022-12-14 07:10] LABS: Abs Immature Grans 0.05 10^3/uL (0.0-0.06); Absolute Basophil Count 0.02 10^3/uL (0.0-0.2); Absolute Lymphocyte Count 0.96 10^3/uL (1.2-3.4); Absolute Monocyte Count 0.68 10^3/uL (0.1-0.8); Absolute Neutrophil Count 8.21 10^3/uL (1.2-6.7); Basophils % 0.2; HCT 33.7 % (36.0-46.0); HGB 9.7 g/dL (11.2-15.7); Immature Grans % 0.5; Lymphocytes % 9.7; MCH 21.2 pg (27.0-33.0); MCHC 28.8 % (32.0-36.0); MCV 74 fL (80-95); Monocytes % 6.9; Neutrophils % 82.7; Platelet Count 417 10^3/uL (130-400); RBC 4.58 10^6/uL (3.93-5.22); RDW 21.2 % (11.7-14.6); RDW-SD 53.7 fL; WBC 9.92 10^3/uL (4.4-10.8)
[2022-12-14 07:42] LABS: Iron 37 ug/dL (50-170); Total Iron Binding Capacity 464 ug/dL (250-450); Transferrin Sat 8 % (15-50)
[2022-12-14 07:43] LABS: Anisocytosis 2+; Diff Comment RBC Morph Reviewed; Hypochromasia 1+; Microcytosis 2+
[2022-12-14] MEDS: Ipratropium 0.5 MG/2.5 ML UPD VIAL UPD ×4 (07:55→22:23)
[2022-12-14] MEDS: Levalbuterol 1.25 MG/3 ML UPD VIAL UPD ×2 (07:56→16:26)
[2022-12-14 07:58] LABS: Anion Gap 13.7 mmol/L (3-11); BUN 66 mg/dL (7-18); CO2 27.3 mmol/L (21.0-32.0); CREATININE 2.6 mg/dL (0.55-1.02); Calcium 9.6 mg/dL (8.5-10.1); Chloride 94 mmol/L (98-107); Estimated GFR 18.55 (mL/min/1.73m2); Ferritin 27 ng/mL (8-252); Glucose 185 mg/dL (74-106); Magnesium 2.1 mg/dL (1.8-2.4); Potassium 3.4 mmol/L (3.5-5.1); Sodium 135 mmol/L (136-145); Vitamin B12 549 pg/mL (193-986)
[2022-12-14] MEDS: Potassium Chloride 20 MEQ TABCR 40 MEQ PO ×2 (08:24→17:04)
[2022-12-14] MEDS: Sucralfate 1 GM TAB PO ×4 (08:25→20:41)
[2022-12-14] MEDS: Allopurinol 100 MG TAB PO (08:25)
[2022-12-14] MEDS: metOLazone 2.5 MG TAB 5 MG PO (08:25)
[2022-12-14] MEDS: Cetirizine 10 MG TAB PO (08:25)
[2022-12-14] MEDS: Magnesium Chloride 64 MG TABCR PO ×2 (08:25→20:41)
[2022-12-14] MEDS: Metoprolol CR 100 MG TABCR 150 MG PO (08:25)
[2022-12-14] MEDS: Amiodarone 200 MG TAB PO (08:26)
[2022-12-14] MEDS: Furosemide 100 MG/10 ML VIAL 80 MG IVP (08:26)
[2022-12-14] MEDS: Insulin Aspart 300 UNITS/3 ML PEN SC ×3 (08:26→17:04)
[2022-12-14] MEDS: Apixaban 5 MG TAB PO ×2 (08:26→20:41)
--- NOTE | 2022-12-14 08:36 | PDOC.CMIN ---
Date of service: 12/14/22 Time of Service: 08:36 [facility] All Active Problems (Updated 12/13/22 @ 14:47 by Lori Yuan MD) Allergic reaction caused by a drug (Acute) Rapid atrial fibrillation (Acute) CKD (chronic kidney disease) stage 4, GFR 15-29 ml/min (Acute) Obesity, morbid (Chronic) a. BMI of 52 Atrial fibrillation (Chronic 06/23/12) 02/19 start Tikosyn 06/21 and 11/20 recurrent 2012 ablation at [place] echo 2012 at [place], normal LVEF and valves 05/2021 RVR, s/p RODRIGUEZ CV and change to amiodarone. Essential hypertension (Acute 08/13/13) Hyperlipidemia (Acute) Hypothyroidism (Chronic 12/06/14) Obstructive sleep apnea syndrome (Chronic 09/26/12) DX SEP 2012 AT [facility]; wears CPAP machine. Gout (Chronic) intermittent, diet based. CHF (congestive heart failure) (Chronic) On amiodarone therapy (Acute) Mitral stenosis with regurgitation (Chronic) Malignant hypertensive heart and CKD (chronic kidney disease) stage IV (Acute) Iron deficiency anemia due to chronic blood loss (Acute) Type 2 diabetes mellitus without complication, with long-term current use of insulin (Acute) CHF (congestive heart failure) (Chronic) Hypoxia (Acute) Medical History Asthma Bilateral bunions Colon polyp (07/10/18) 12/19 tubular adenoma Diabetic neuropathy Diverticulosis Former smoker (08/16/14) 5 pack yr history Gastroesophageal reflux disease GI bleed had melena transiently in 02/2021; unable to be evaluated due to AV stenosis. 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 tachycardia correction current use of antiarrhythmic medical therapy (08/21/13) Osteoarthritis Peptic ulcer disease with hemorrhage hx x 3 Pre-ulcerative corn or callous Restless legs (01/18/13) sleep study low iron (not anemic) Severe aortic stenosis Surgical History History of esophagogastroduodenoscopy (EGD) (~05/2018) 07/10/18 History of open sigmoidectomy S/P colonoscopy (~07/10/18) Status post abdominal hysterectomy Status post appendectomy Status post total bilateral knee replacement Status post transcatheter aortic valve replacement (TAVR) using bioprosthesis (~04/2021) Complicated by extravasation of contrast on iliofemoral angiography. 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 Son No problems noted. Social History Smoking/Tobacco Use Status: Former Tobacco Use Quit Date: 08/08/72 Tobacco: How many years used: 4 Second Hand Exposure: No Smoking risk assessment performed?: Yes Alcohol Intake: never Drug use: Never Substance use type: does not use Caregiver/Support person: No Household members: spouse Housing: house Communication Needs: None current occupation: [employer] Pets and animals: Yes Pets and animals: dog(s) Sexually active: Yes Do you think of yourself as: straight/heterosexual Current gender identity: female What is your relationship status?: How often do you talk on the phone with friends or family?: twice per week How often do you get together with friends or relatives?: three or more times per week How often do you attend mormon or nondenominational services?: 4 or more times per year Do you belong to any clubs or organized social groups?: no Panel score (0-1 are the most socially isolated patients): 3 What type of physical activity do you participate in: walking Duration: < 15 minutes/day Frequency: 1-2 times per week Radha/Congregation: [employer] Special radha needs: No Seatbelt use: always Drive intox or ride w/intox lumber driver: No Do you feel safe at home: Yes Do you feel safe in your relationship?: Yes Additional Social history: at bedside
--- NOTE | 2022-12-14 08:37 | PDOC.CMPRO ---
Date of service: 12/14/22 Time of Service: 08:37 Care Management Progress Note Progress Note Text Progress Note Text: S/O: Maliha was sitting up in her chair when CM met with her. She is awake and engages in conversation. Cardiology consult is ordered. Per provider patients condition is improving, anticipate discharge home tomorrow if medically ready. Patient declines palliative consult. CM will continue to follow and assess discharge planning concerns. A: 77 year old female admitted to [facility] on 12/12/22 for Acute on Chronic CHF P:?Anticipate Maliha will discharge home with no new services when medically cleared. She will follow up with her community providers and plan of care and transport with family. CM will follow and assess for discharge planning concerns.
[2022-12-14] MEDS: Cyanocobalamin 500 MCG TAB 1000 MCG PO (09:27)
[2022-12-14] MEDS: POTASSIUM CHLORIDE 20 MEQ/100 ML BAG 50 MEQ IVPB ×2 (09:28→11:09)
--- NOTE | 2022-12-14 09:52 | W.INDIABCONS ---
Date of service: 12/14/22 Time of Service: 09:53 Diabetes Inpatient Consult Reason for Visit: dm2 DESCRIPTION/ASSESSMENT: Maliha was admitted with acute bronchitis with long standing hx of morbid obesity, DM2, HTN, HLD, CKD and CHF.? BMI 46.? Most recent A1C(12/12/22): 8.6% indicates poor glycemic control. ? Home DM meds: 15 units glargine q HS.? Following diabetic diet with adequate intake.? Maliha not interested in dietitary and life style changes at this time INTERVENTION: Continue diabetic diet Consider adding Jardiance and/or metformin at discharge for improved glcyemic control PLAN: Recommend outpatient nutrition counseling for weight management when ready to make dietary changes Time Spent in Nutritional Counseling and Treatment: 0
[2022-12-14] MEDS: Acetaminophen 325 MG TAB 650 MG PO ×2 (11:17→23:13)
[2022-12-14] MEDS: AZITHROMYCIN 500 MG in Normal Saline 250 ML 250 MG IVPB (13:53)
--- NOTE | 2022-12-14 14:29 | W.PM.PROGNOT ---
Date of Service Date of service: 12/14/22 Time of Service: 14:40 Assessment and Plan Assessment and plan (1) CHF (congestive heart failure): Status: Chronic Assessment and plan: Acute on chronic HFpEF w/ evidence of pulmonary hypertension and mitral valve stenosis and regurgitation. Additionally, her Afib has not been well controlled. Switch to PO torsemide. Continue daily metolazone. Await cardiology consult. Weight is unchanged, but the patient was able to get off of oxygen and is doing better clinically. Qualifiers: Heart failure type: right-sided Heart failure chronicity: acute on chronic Qualified Code(s): I50.813 - Acute on chronic right heart failure (2) Rapid atrial fibrillation: Status: Acute Assessment and plan: This is not a new issue. The patient is followed by [facility] for it. She is symptomatic. Continue amiodarone 200 mg PO daily and metoprolol 150 mg PO daily. Await cardiology consult. Switch diuretics to PO. Continue to monitor on tele. Continue anticoagulation with apixaban. (3) Mitral stenosis with regurgitation: Status: Chronic Assessment and plan: [facility] [place] cardi[place] is following this as outpatient. Await cardiology consult to see if a possible intervention needs to be fast-tracked. (4) Acute bronchitis: Status: Suspected Assessment and plan: Fluvid negative. Continue azithromycin, nebs. (5) Allergic reaction caused by a drug: Status: Resolved Assessment and plan: Ceftriaxone added to the allergy list. (6) Essential hypertension: Status: Acute Assessment and plan: Continue metoprolol. (7) Obesity, morbid: Status: Chronic Assessment and plan: Continue CPAP as does have LAI. (8) Hypothyroidism: Status: Chronic Assessment and plan: TSH 4.21. Continue levothyroxine.. (9) Type 2 diabetes mellitus without complication, with long-term current use of insulin: Status: Acute Assessment and plan: Continue basal bolus insulin. (10) CKD (chronic kidney disease) stage 4, GFR 15-29 ml/min: Status: Acute Assessment and plan: F/u w/ [facility] [place] nephrology (as was already being planned). (11) Hyperlipidemia: Status: Acute Assessment and plan: Continue simvastatin (12) Discharge planning issues: Status: Resolved Assessment and plan: DNR/DNI. Not interested in palliative care. Anticipate discharge home tomorrow. Subjective Subjective Interval history since last seen: Ms Iqbal feels like her breathing is back to baseline. She passed her exercise oximetry on RA. THis morning, when I came to see her, she was asleep without her BiPAP on. When I woke her up, she was confused as to where she was and how she got there. She started to remember who I was, however, and remembered her incident with the reaction to an antibiotic yesterday. She denies swelling or tingling of the tongue, difficulty swallowing, CP, SOB, nausea, hives/itching. Exam Narrative Exam Narrative: General: Pleasant elderly female, asleep, difficult to arouse initially, but does wake up, initially A&Ox2, but then regains her orientation. On RA. HEENT: EOMI, MMM, tongue not swollen, Mallampati III Heart: irregularly irregular rhythm, + SAGE Lungs: CTAB Abdomen: soft, nontender, nondistended Extremities: trace BLE edema, symmetric Objective Last Vital Signs Temp 36.4 C L 12/14/22 11:32 Pulse 88 12/14/22 12:30 Resp 16 12/14/22 12:30 BP 113/77 12/14/22 11:32 Pulse Ox 98 12/14/22 12:30 Laboratory Results - last 24 hr 12/13/22 12/14/22 12/14/22 14:53 06:12 06:12 WBC RBC Hgb Hct MCV MCH MCHC RDW Plt Count MPV Immature Gran % Neutrophils % Lymphocytes % Monocytes % Eosinophils % Basophils % Nucleated RBC % Absolute Neutrophils Absolute Lymphocytes Absolute Monocytes Absolute Eosinophils Absolute Basophils RBC Morphology Hypochromasia Anisocytosis Microcytosis Sodium 135 L Potassium 3.4 L Chloride 94 L Carbon Dioxide 27.3 Anion Gap 13.7 H BUN 66 H Creatinine 2.6 H Est GFR (CKD-EPI 2020) 18.55 Glucose 185 H Calcium 9.6 Magnesium 2.1 Iron 37 L TIBC 464 H Transferrin % Sat 8 L Ferritin 27 Vitamin B12 549 Folate 18.0 COVID-19 Source Nasopharynx SARS-CoV-2 (PCR) Negative Influenza Type A (PCR) Negative Influenza Type B (PCR) Negative RSV (PCR) Negative 12/14/22 06:12 WBC 9.92 RBC 4.58 Hgb 9.7 L Hct 33.7 L MCV 74 L MCH 21.2 L MCHC 28.8 L RDW 21.2 H Plt Count 417 H MPV 9.0 Immature Gran % 0.5 Neutrophils % 82.7 Lymphocytes % 9.7 Monocytes % 6.9 Eosinophils % 0.0 Basophils % 0.2 Nucleated RBC % 0.0 Absolute Neutrophils 8.21 H Absolute Lymphocytes 0.96 L Absolute Monocytes 0.68 Absolute Eosinophils 0.00 Absolute Basophils 0.02 RBC Morphology See Below Hypochromasia 1+ Anisocytosis 2+ Microcytosis 2+ Sodium Potassium Chloride Carbon Dioxide Anion Gap BUN Creatinine Est GFR (CKD-EPI 2020) Glucose Calcium Magnesium Iron TIBC Transferrin % Sat Ferritin Vitamin B12 Folate COVID-19 Source SARS-CoV-2 (PCR) Influenza Type A (PCR) Influenza Type B (PCR) RSV (PCR) Time Spent with Patient Time Spent with Patient: 25-34 minutes Time was spent: preparing to see the patient(eg.review tests), obtaining and/or reviewing separately otained hiistory, ordering medications,tests, procedures, referring, communicating with other health healthcare receptionist, indepentently interpreting results, counseling the patient and care coordination
[2022-12-14] MEDS: Torsemide 20 MG TAB 40 MG PO (15:23)
--- NOTE | 2022-12-14 15:48 | W.CARDCONSUL ---
Date of service: 12/14/22 Time of Service: 15:49 Assessment and Plan Assessment and plan (1) CHF (congestive heart failure): Status: Chronic Assessment and plan: Volume status appears at baseline now Qualifiers: Heart failure type: right-sided Heart failure chronicity: acute on chronic Qualified Code(s): I50.813 - Acute on chronic right heart failure (2) Atrial fibrillation: Status: Chronic Assessment and plan: Patient has longstanding issues with atrial fibrillation, previously paroxysmal. She had been maintained long-term on amiodarone though apparently at the end of November it was recommended this medication be discontinued. It appears consideration is being given to AV node ablation and pacemaker implantation. She will need to follow-up with [facility] (already scheduled) for both heart failure and interventional cardiology. Her appointment is December 23 Qualifiers: Atrial fibrillation type: longstanding persistent Qualified Code(s): I48.11 - Longstanding persistent atrial fibrillation (3) Status post transcatheter aortic valve replacement (TAVR) using bioprosthesis: Assessment and plan: I have no specific cardiac recommendations at present. I think discharge to be reasonable so that she can keep her scheduled appointments in [place] History of Present Illness Narrative: This is a 77-year-old woman with a longstanding history of paroxysmal atrial fibrillation, diastolic heart failure, prior transcatheter aortic valve replacement and mixed mitral valvular disease. Patient was in her usual state of health until 2 days ago when she began to be short of breath and noted that her heart was racing. She called her providers at [facility] and was told to come to the emergency room. She was admitted. Chest x-ray was obtained and reported vascular redistribution; follow-up chest x-ray showed atelectasis. Patient was treated for decompensated heart failure with intravenous diuretics and has improved. She currently feels at her baseline She has had recent evaluation at [facility] which included a right heart catheterization. She has severe pulmonary hypertension. She is scheduled next week to see the heart failure clinic. She also has been referred to nephrology because her creatinine has worsened. Patient reports they are considering doing an AV node ablation and pacemaker to deal with her atrial fibrillation Review of Systems Cardiovascular Cardiovascular: Reports as per HPI, Reports irregular heart rhythm, Reports palpitations and Reports dyspnea Respiratory Respiratory: Reports dyspnea Endocrine Endocrine: Reports palpitations PFSH All Active Problems Rapid atrial fibrillation (Acute) CKD (chronic kidney disease) stage 4, GFR 15-29 ml/min (Acute) Obesity, morbid (Chronic) a. BMI of 52 Atrial fibrillation (Chronic 06/23/12) 02/19 start Tikosyn 06/21 and 11/20 recurrent 2012 ablation at [facility] echo 2012 at [facility], normal LVEF and valves 05/2021 RVR, s/p RODRIGUEZ CV and change to amiodarone. Essential hypertension (Acute 08/13/13) Hyperlipidemia (Acute) Hypothyroidism (Chronic 12/06/14) Obstructive sleep apnea syndrome (Chronic 09/26/12) DX SEP 2012 AT [facility]; wears CPAP machine. Gout (Chronic) intermittent, diet based. CHF (congestive heart failure) (Chronic) On amiodarone therapy (Acute) Mitral stenosis with regurgitation (Chronic) Malignant hypertensive heart and CKD (chronic kidney disease) stage IV (Acute) Iron deficiency anemia due to chronic blood loss (Acute) Type 2 diabetes mellitus without complication, with long-term current use of insulin (Acute) CHF (congestive heart failure) (Chronic) Hypoxia (Acute) Medical History Asthma Bilateral bunions Colon polyp (07/10/18) 12/19 tubular adenoma Diabetic neuropathy Diverticulosis Former smoker (08/16/14) 5 pack yr history Gastroesophageal reflux disease GI bleed had melena transiently in 02/2021; unable to be evaluated due to AV stenosis. 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 2 covered stents placed in the artery EIA extending into the R [employer] ARM[employer]ED [employer] Family History Mother , 65 Thoracic aneurysm, ruptured Personal history of malignant neoplasm LYMPHOMA Father , 64 Heart disease Myocardial infarction Stroke Maternal Grandfather , 80 Heart disease Stroke Paternal Grandfather , 65 Heart disease Maternal Grandmother , 83 Heart disease Paternal Grandmother , 40 Cancer Son No problems noted. Son No problems noted. 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 Pets and animals: Yes Pets and animals: dog(s) Sexually active: Yes Do you think of yourself as: straight/heterosexual Current gender identity: female What is your relationship status?: How often do you talk on the phone with friends or family?: twice per week How often do you get together with friends or relatives?: three or more times per week How often do you attend scientologist or mu-ism services?: 4 or more times per year Do you belong to any clubs or organized social groups?: no Panel score (0-1 are the most socially isolated patients): 3 What type of physical activity do you participate in: walking Duration: < 15 minutes/day Frequency: 1-2 times per week Radha/Congregation: [employer] Special radha needs: No Seatbelt use: always Drive intox or ride w/intox racing car driver: No Do you feel safe at home: Yes Do you feel safe in your relationship?: Yes Additional Social history: at bedside Exam Const Other: Obese no acute distress Neck Other: Unable to assess JVP Resp Other: Normal respiratory effort, decreased breath sounds at the bases Cardio Other: Irregularly irregular distant 2/6 systolic ejection quality murmur Extrem Other: 1+ edema Results Last Vital Signs Temp 36 C L 12/14/22 15:15 Pulse 89 12/14/22 15:18 Resp 18 12/14/22 15:15 BP 141/78 H 12/14/22 15:30 Pulse Ox 94 12/14/22 15:18 Labs 12/14/22 06:12 12/14/22 06:12 Labs: Laboratory Results - last 24 hr 12/13/22 12/14/22 12/14/22 14:53 06:12 06:12 WBC RBC Hgb Hct MCV MCH MCHC RDW Plt Count MPV Immature Gran % Neutrophils % Lymphocytes % Monocytes % Eosinophils % Basophils % Nucleated RBC % Absolute Neutrophils Absolute Lymphocytes Absolute Monocytes Absolute Eosinophils Absolute Basophils RBC Morphology Hypochromasia Anisocytosis Microcytosis Sodium 135 L Potassium 3.4 L Chloride 94 L Carbon Dioxide 27.3 Anion Gap 13.7 H BUN 66 H Creatinine 2.6 H Est GFR (CKD-EPI 2020) 18.55 Glucose 185 H Calcium 9.6 Magnesium 2.1 Iron 37 L TIBC 464 H Transferrin % Sat 8 L Ferritin 27 Vitamin B12 549 Folate 18.0 COVID-19 Source Nasopharynx SARS-CoV-2 (PCR) Negative Influenza Type A (PCR) Negative Influenza Type B (PCR) Negative RSV (PCR) Negative 12/14/22 06:12 WBC 9.92 RBC 4.58 Hgb 9.7 L Hct 33.7 L MCV 74 L MCH 21.2 L MCHC 28.8 L RDW 21.2 H Plt Count 417 H MPV 9.0 Immature Gran % 0.5 Neutrophils % 82.7 Lymphocytes % 9.7 Monocytes % 6.9 Eosinophils % 0.0 Basophils % 0.2 Nucleated RBC % 0.0 Absolute Neutrophils 8.21 H Absolute Lymphocytes 0.96 L Absolute Monocytes 0.68 Absolute Eosinophils 0.00 Absolute Basophils 0.02 RBC Morphology See Below Hypochromasia 1+ Anisocytosis 2+ Microcytosis 2+ Sodium Potassium Chloride Carbon Dioxide Anion Gap BUN Creatinine Est GFR (CKD-EPI 2020) Glucose Calcium Magnesium Iron TIBC Transferrin % Sat Ferritin Vitamin B12 Folate COVID-19 Source SARS-CoV-2 (PCR) Influenza Type A (PCR) Influenza Type B (PCR) RSV (PCR)
--- NOTE | 2022-12-14 17:33 | CHAPLAIN ---
Maliha was having dinner when I visited. She was expecting her to visit, and bring her glasses so she could do crossword puzzles. She seems to be comfortable here. I introduced myself, explained my role and offered support.
[2022-12-14] MEDS: Insulin Glargine 300 UNITS/3 ML PEN 15 UNITS SC (20:41)
[2022-12-14] MEDS: Simvastatin 10 MG TAB PO (20:41)
[2022-12-15] VITALS (13 sets, daily range): BP systolic 108–121; BP diastolic 66–74; PULSE 82–106; RESP 8–25; TEMP 36.1–36.3; O2SAT 93–100
[2022-12-15] MEDS: Levothyroxine 75 MCG TAB 37.5 MCG PO (05:38)
[2022-12-15] MEDS: Allopurinol 100 MG TAB PO (07:35)
[2022-12-15] MEDS: Cyanocobalamin 500 MCG TAB 1000 MCG PO (07:35)
[2022-12-15] MEDS: Potassium Chloride 20 MEQ TABCR 40 MEQ PO ×2 (07:35→16:55)
[2022-12-15] MEDS: Sucralfate 1 GM TAB PO ×3 (07:35→16:55)
[2022-12-15] MEDS: Amiodarone 200 MG TAB PO (07:35)
[2022-12-15] MEDS: metOLazone 2.5 MG TAB 5 MG PO (07:36)
[2022-12-15] MEDS: Torsemide 20 MG TAB 80 MG PO (07:36)
[2022-12-15] MEDS: Cetirizine 10 MG TAB PO (07:36)
[2022-12-15] MEDS: Magnesium Chloride 64 MG TABCR PO (07:36)
[2022-12-15] MEDS: Metoprolol CR 100 MG TABCR 150 MG PO (07:36)
[2022-12-15] MEDS: Apixaban 5 MG TAB PO (07:36)
[2022-12-15 07:43] LABS: Anion Gap 12.7 mmol/L (3-11); BUN 74 mg/dL (7-18); CO2 28.3 mmol/L (21.0-32.0); CREATININE 2.6 mg/dL (0.55-1.02); Calcium 9.7 mg/dL (8.5-10.1); Chloride 94 mmol/L (98-107); Estimated GFR 18.55 (mL/min/1.73m2); Glucose 129 mg/dL (74-106); Magnesium 2.2 mg/dL (1.8-2.4); Potassium 3.3 mmol/L (3.5-5.1); Sodium 135 mmol/L (136-145)
[2022-12-15] MEDS: Insulin Aspart 300 UNITS/3 ML PEN SC ×3 (07:46→16:55)
[2022-12-15] MEDS: Ipratropium 0.5 MG/2.5 ML UPD VIAL UPD ×3 (08:50→16:10)
[2022-12-15] MEDS: Levalbuterol 1.25 MG/3 ML UPD VIAL UPD ×3 (08:52→16:11)
[2022-12-15] MEDS: POTASSIUM CHLORIDE 20 MEQ/100 ML BAG 50 MEQ IVPB ×2 (09:31→12:01)
[2022-12-15] MEDS: Acetaminophen 325 MG TAB 650 MG PO (11:22)
--- NOTE | 2022-12-15 11:45 | DSE_ITS ---
Date of service: 12/15/22 Time of Service: 11:45 DS: Diagnosis Discharge Diagnosis (1) CHF (congestive heart failure): Status: Chronic Asessment and Plan: acute on chronic CHFpEF with pulmonary hypertension (2) Acute bronchitis: Status: Suspected (3) Rapid atrial fibrillation: Status: Acute (4) Status post transcatheter aortic valve replacement (TAVR) using bioprosthesis: (5) Mitral stenosis with regurgitation: Status: Chronic (6) Obstructive sleep apnea syndrome: Status: Chronic (7) Hypoxia: Status: Resolved (8) Hypokalemia: Status: Acute (9) Allergic reaction caused by a drug: Status: Resolved Asessment and Plan: to ceftriaxone Discharge Plan Disposition Patient Disposition: Home Condition: Stable Discharge Details Reason For Visit: Acute on Chronic CHF Admit Date/Time: 12/12/22 18:04 Admit Provider: Mervin Monk Attending Provider: Mervin Monk Primary Care Provider: Kimberly Nicole Hospital Course Hospital Course: Ms Iqbal is a 77 year old female with PMHx of chronic diastolic CHF, pulmonary hypertension, Afib with rates that have been difficult to control s/p prior cardioversion, on amiodarone, metoprolol, and eliquis, as well as h/o mitral regurgitation and stenosis, who was admitted to [facility] hospitalist service on 12/12/22 with evidence of fluid overload due to combination of her acute on chronic diastolic CHF and pulmonary hypertension as well as clinically bronchitis vs pneumonia (now felt to be likely the former). She was requiring 1 L of O2 by MA for her O2 sats of high 80s on RA. She was admitted for diuresis and received treatment for bronchitis with antibiotics and nebulizer therapies. With this, she improved clinically in a steady fashion. She will need to complete two more days of azithromycin as outpatient. The patient did have an allergic reaction to ceftriaxone (anaphylactic: swollen and tingly tongue, difficulty breathing, urticaria) treated with antihistamines and steroids on this admission. She was evaluated by cardiology because of concerns that her rapid Afib and her mitral valve disease might be contributing to her CHF. It was felt that it would be acceptable for her to keep her previously scheduled outpatient cardiology appointment on December 23. Of note, the patient was still on amiodarone on arrival to the hospital and was maintained on it here. It does appear that there was a recommendation for amiodarone to stop this at the end of November as outpatient, but given rapid heart rates, it will be continued at the time of discharge until an alternative therapy can be instituted by cardiology at [facility]. Her metoprolol dose has not changed. Her dose of torsemide on discharge is 60 mg daily. She has been weaned off of oxygen, passed an exercise oximetry assessment on room air. Her levothyroxine dose was increased due to her TSH of 4.21 - it is now 37.5 mcg PO daily. A [facility] nephrology referral has been placed as it was already being considered by cardiology as outpatient. Care for patient as well as completion of her discharge summary on day of discharge took 45 minutes. Home Meds and New Rx's Prescriptions: New cyanocobalamin (vitamin B-12) [Vitamin B-12] 500 mcg Tablet 1,000 mcg PO DAILY Qty: 60 0RF levothyroxine 37.5 mcg capsule 37.5 mcg PO DAILY Qty: 30 0RF azithromycin 250 mg tablet 250 mg PO DAILY Qty: 2 0RF Rx Instructions: next dose 12/16/22 levalbuterol tartrate 45 mcg/actuation HFA aerosol inhaler 2 inh inhalation Q6H PRN PRN (Reason: shortness of breath or wheezing) Qty: 15 0RF Continued albuterol sulfate 90 mcg/actuation HFA aerosol inhaler 2 puff IH QID PRN sucralfate 1 gram tablet 1 g PO AC & HS Qty: 120 12RF acetaminophen [Tylenol] 325 mg tablet 325 - 650 mg PO Q4H PRN PRN (Reason: pain) Qty: 30 0RF magnesium chloride 64 mg tablet,delayed release (DR/EC) 64 mg PO BID Qty: 180 3RF amiodarone 200 mg tablet 200 mg PO DAILY Qty: 90 3RF colchicine 0.6 mg tablet 0.6 mg PO DAILY PRN (Reason: gout) Qty: 20 3RF Eliquis 5 mg tablet 5 mg PO BID Qty: 60 11RF metolazone 5 mg tablet 5 mg PO .COMPLEX Qty: 60 5RF Rx Instructions: 5 mg PO As directed; Take 1 pill Mondays and , 1 hour prior to Lasix allopurinol 100 mg tablet 100 mg PO DAILY Qty: 90 1RF pantoprazole 40 mg tablet,delayed release (DR/EC) 40 mg PO DAILY Qty: 30 5RF insulin glargine 100 unit/mL (3 mL) insulin pen 15 unit subcut QPM Qty: 15 3RF metoprolol succinate 100 mg tablet extended release 24 hr 150 mg PO DAILY Qty: 180 3RF simvastatin 10 mg tablet 10 mg PO QPM Qty: 90 3RF cholecalciferol (vitamin D3) 25 mcg (1,000 unit) Tablet 1,000 units PO DAILY Qty: 0 0RF Changed torsemide 20 mg tablet 60 mg PO DAILY Qty: 90 5RF potassium chloride 20 mEq tablet,ER particles/crystals 40 meq PO BIDWMEAL Qty: 120 5RF Discontinued levothyroxine 25 mcg tablet 25 mcg PO DAILY No Action (DME) pen needle, diabetic [BD Ultra-Fine Mini Pen Needle] 31 gauge x 3/16 needle See Rx Instructions .Route Qty: 100 3RF Rx Instructions: As directed (DME) diabetic extra depth shoes See Rx Instructions .Route .MEDSUPPLY Qty: 1 0RF Rx Instructions: As directed (DME) blood sugar diagnostic Strip See Dose Instructions .ROUTE .MEDSUPPLY Qty: 400 3RF Dose Instruction: As directed Rx Instructions: use tid and prn.Accu-Chek Smart View Test Strip Discharge Instructions Instructions: Azithromycin (By mouth), Heart Failure (DC), Acute Bronchitis (ED) Additional Instructions: Finish your antibiotics as prescribed. Your torsemide dose has changed! Return to the hospital with any fever, bleeding, chest pain, or shortness of breath. Follow a 2 gram sodium diet. Weigh yourself every day and notify your clock mechanic if you have gained >3 lbs in 3 days. Follow up with your PCP, cardiology at [facility] as scheduled on December 23, and with [facility] nephrology. Stand Alone Forms: Nursing Discharge Form Referrals: NEPHROLOGY,[facility] [OTHER] - (Referral sent to office. They will call you with appointment. CKD) Kimberly Nicole MD [Primary Care Provider] - 12/21/22 10:20 am Activity:: Activity as Tolerated Equipment/Supplies:: No Equipment Needed Diet:: consistent carb low sodium Discharge Orders Discharge Orders: Discharge Order (Routine); Ordered 12/15/22 Ordered By: Lori Yuan DS: Summary Time Spent with Patient providing and/or coordinating discharge services: Greater than 30 minutes Status at Discharge Functional status at discharge: independent ambulation Overall status at discharge: patient is progressing back to baseline Mental Status: mental status grossly normal Speech and Movement: speech and movement normal Mood: congruent mood Affect: normal affect Exam Narrative Exam Narrative: General: Pleasant elderly female, A&Ox3, looks very alert and bright HEENT: EOMI, MMM, Heart: irregularly irregular rhythm, tachycardic, + SAGE Lungs: CTAB Abdomen: soft, nontender, nondistended Extremities: trace BLE edema, symmetric Psych Mental Status: mental status grossly normal Speech and Movement: speech and movement normal Mood: congruent mood Affect: normal affect DS: Data Vitals/I&O Vitals and I&O: Vital Signs Temperature 36.2 C L 12/15/22 07:05 Temperature Source Tympanic 12/15/22 07:05 Pulse 94 H 12/15/22 08:52 Pulse Rhythm Irregular 12/15/22 07:30 Pulse 88 12/12/22 18:31 Respiratory Rate 18 12/15/22 08:52 Respiratory Effort Normal, Non-Labored 12/15/22 07:30 Respiratory Depth Normal 12/15/22 07:30 Respiratory Pattern Normal 12/15/22 07:30 Blood Pressure 116/72 12/15/22 07:05 Blood Pressure Mean 64 12/12/22 18:31 Pulse Oximetry 99 12/15/22 09:03 Oxygen Delivery Method Room Air 12/15/22 08:52 Oxygen Flow Rate 0 12/15/22 08:52 Fraction of Inspired Oxygen (FIO2) 21 12/14/22 08:49 Pain Level 5 12/15/22 11:22 Comment Per RN oxygen flow rate dropped to 1L/min at this time 12/13/22 06:33 Intake & Output 12/14/22 12/14/22 12/15/22 11:59 23:59 11:59 Intake Total 84.167 / 1034.167 950 / 1034.167 Output Total 1800 / 2400 600 / 2400 1700 / 1700 Balance -1715.833 / -1365.833 350 / -1365.833 -1690 / -1690 Weight 104.6 kg Intake: IV 84.167 / 434.167 350 / 434.167 Oral 600 / 600 Output: Urine 1800 / 2400 600 / 2400 1700 / 1700 Other: Urine Color Yellow Yellow Yellow Urine Appearance Clear Clear Clear Urine Odor None Normal Normal Comment toilet with urine/stool x1 Voiding Methods Toilet Toilet Data Completed and Pending Completed studies during hospitalization [Text1]: CXR 12/12/22: Pulmonary venous hypertension pattern but no sharmila airspace pulmonary edema.? No pleural effusions. Aortic valve TAVR again evident Labs on day of discharge: Labs from last 24 hours 12/15/22 06:07 Sodium 135 L Potassium 3.3 L Chloride 94 L Carbon Dioxide 28.3 Anion Gap 12.7 H BUN 74 H Creatinine 2.6 H Est GFR (CKD-EPI 2020) 18.55 Glucose 129 H Calcium 9.7 Magnesium 2.2 PFSH All Active Problems (Updated 12/15/22 @ 11:59 by Lori Yuan MD) Hypokalemia (Acute) Rapid atrial fibrillation (Acute) CKD (chronic kidney disease) stage 4, GFR 15-29 ml/min (Acute) Obesity, morbid (Chronic) a. BMI of 52 Atrial fibrillation (Chronic 06/23/12) 02/19 start Tikosyn 06/21 and 11/20 recurrent 2012 ablation at [facility] echo 2012 at [facility], normal LVEF and valves 05/2021 RVR, s/p RODRIGUEZ CV and change to amiodarone. Essential hypertension (Acute 08/13/13) Hyperlipidemia (Acute) Hypothyroidism (Chronic 12/06/14) Obstructive sleep apnea syndrome (Chronic 09/26/12) DX SEP 2012 AT [facility]; wears CPAP machine. Gout (Chronic) intermittent, diet based. CHF (congestive heart failure) (Chronic) On amiodarone therapy (Acute) Mitral stenosis with regurgitation (Chronic) Malignant hypertensive heart and CKD (chronic kidney disease) stage IV (Acute) Iron deficiency anemia due to chronic blood loss (Acute) Type 2 diabetes mellitus without complication, with long-term current use of insulin (Acute) CHF (congestive heart failure) (Chronic) Medical History Asthma Bilateral bunions Colon polyp (07/10/18) 12/19 tubular adenoma Diabetic neuropathy Diverticulosis Former smoker (01/09/15) 5 pack yr history Gastroesophageal reflux disease GI bleed had melena transiently in 02/2021; unable to be evaluated due to AV stenosis. 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 Son No problems noted. Social History Smoking/Tobacco Use Status: Former Tobacco Use Quit Date: 08/08/72 Tobacco: How many years used: 4 Second Hand Exposure: No Smoking risk assessment performed?: Yes Alcohol Intake: never Drug use: Never Substance use type: does not use Caregiver/Support person: No Household members: spouse Housing: house Communication Needs: None current occupation: [employer] Pets and animals: Yes Pets and animals: dog(s) Sexually active: Yes Do you think of yourself as: straight/heterosexual Current gender identity: female What is your relationship status?: How often do you talk on the phone with friends or family?: twice per week How often do you get together with friends or relatives?: three or more times per week How often do you attend bahai or islam services?: 4 or more times per year Do you belong to any clubs or organized social groups?: no Panel score (0-1 are the most socially isolated patients): 3 What type of physical activity do you participate in: walking Duration: < 15 minutes/day Frequency: 1-2 times per week Radha/Pentecostal: Yazdanism Special radha needs: No Seatbelt use: always Drive intox or ride w/intox lead driver: No Do you feel safe at home: Yes Do you feel safe in your relationship?: Yes Additional Social history: at bedside Time Spent with Patient Time Spent with Patient: 45-69 minutes Time was spent: preparing to see the patient(eg.review tests), obtaining and/or reviewing separately otained hiistory, ordering medications,tests, procedures, referring, communicating with other health critical care registered nurse, indepentently interpreting results, counseling the patient and care coordination
--- NOTE | 2022-12-15 13:30 | PDOC.CMDIS ---
Date of service: 12/15/22 Time of Service: 13:30 LACE Index Scoring Tool Questions: Length of Stay (in days): 3 Was the patient admitted via the E.D.?: Yes Comorbidities: Diabetes w/o Complication, Congestive Heart Failure and Liver or Renal Disease E.D. Visits: 7 Answers: Total Score: 15 Risk of Readmission: High Risk Care Management Discharge Plan Reason for Hospitalization: CHF Discharge Plan: Maliha is discharged home via private vehicle with family. She will follow up with her community providers and discharge plan of care as prescribed. Follow up is recommended with Primary Care, cardiology at [facility] [place] [place] as scheduled on December 23, and with [facility] [place] [place] nephrology. Patient/Family Education Needs: Review discharge instructions, limitations, medications and plan to follow up with community providers. Discuss ask me three.
[2022-12-15] MEDS: AZITHROMYCIN 500 MG in Normal Saline 250 ML 250 MG IVPB (14:25)
== END 2022-12-15 17:43 | disposition home or self-care (01) | DRG 291 ==
LOC: ER 18:38 → MS 18:47
PROVIDERS: Internal Medicine; Admitting Provider Family Medicine; Emergency Provider Emergency Medicine; PCP Family Medicine; Visit Provider Family Medicine
DX: I13.0 Hypertensive heart and chronic kidney disease with heart failure and stage 1 through stage 4 chronic kidney disease, or unspecified chronic kidney disease (principal); I50.33 Acute on chronic diastolic (congestive) heart failure; I47.1 Supraventricular tachycardia; I48.11 Longstanding persistent atrial fibrillation; Z68.42 Body mass index [BMI] 45.0-49.9, adult; N18.4 Chronic kidney disease, stage 4 (severe); E66.01 Morbid (severe) obesity due to excess calories; E78.5 Hyperlipidemia, unspecified; E03.9 Hypothyroidism, unspecified; I11.0 Hypertensive heart disease with heart failure; Z79.4 Long term (current) use of insulin; I50.813 Acute on chronic right heart failure; E11.22 Type 2 diabetes mellitus with diabetic chronic kidney disease; G47.33 Obstructive sleep apnea (adult) (pediatric); M1A.00X0 Idiopathic chronic gout, unspecified site, without tophus (tophi); D50.0 Iron deficiency anemia secondary to blood loss (chronic); E11.40 Type 2 diabetes mellitus with diabetic neuropathy, unspecified; J45.909 Unspecified asthma, uncomplicated; Z87.891 Personal history of nicotine dependence; K21.9 Gastro-esophageal reflux disease without esophagitis; Z87.11 Personal history of peptic ulcer disease; Z96.653 Presence of artificial knee joint, bilateral; Z95.3 Presence of xenogenic heart valve; I27.20 Pulmonary hypertension, unspecified; Z66 Do not resuscitate; J20.9 Acute bronchitis, unspecified; I05.2 Rheumatic mitral stenosis with insufficiency; L29.8 Other pruritus; T36.1X5A Adverse effect of cephalosporins and other beta-lactam antibiotics, initial encounter
CPT/HCPCS: 36415; 80048; 80053; 84145; 85027; 87637; 93005; 94618; 96374; 99285; 71045; 82607; 82728; 82746; 83036; 83540; 83550; 83735; 83880; 84439; 84443; 84484; 85025; 85610; 85730; 93010; 94640; 94760; 99223; 99232; 99233; 99239; J0456; J0696; J1200; J1940; J2930; J3480; J7614; J7644

== ENCOUNTER → 2022-12-14 15:18 | Outpatient (BNVA) | payer MEDICARE, SELFPAY | PROVIDERS: PCP Family Medicine; Referring Provider Family Medicine; Visit Provider Internal Medicine Cardiovascular Disease ==

== ENCOUNTER 2023-01-04 18:26 | Inpatient (IN) | payer MEDICARE, SELFPAY ==
[2023-01-04] VITALS (58 sets, daily range): BP systolic 90–147; BP diastolic 29–104; PULSE 56–84; RESP 14–36; TEMP 37.2; O2SAT 88–98
--- NOTE | 2023-01-04 18:30 | RT.EKG_ITS ---
APPROVED REPORT Exam: Resting ECG Reason for Exam: sob Patient Location: E HR:70 bpm ECG Measurements Heart Rate 70 AXIS WV 185 P 95 QRSd 128 QRS -56 QT 443 T -29 QTc 477 Conclusion Sinus rhythm...normal P axis, V-rate 60- 99 LVH with secondary repolarization abnormality...multi-LVH criteria, abnrm ST-T Normal sinus rhythm at a rate of 70. Interventricular conduction delay. QTc and WV intervals within normal limits. Left axis deviation no signs of LVH based on voltage criteria. Left lateral chest w all ST segment depressions. New T wave inversions leads III and aVF. ECG changes new compared to pr ior dated earlier this month.
--- NOTE | 2023-01-04 18:52 | NUR.NOTE ---
Nursing Note: Pt immediately brought to room 1 and placed on 3L NC - Sat improved to 95%
--- NOTE | 2023-01-04 19:00 | DI.RAD_ITS ---
Exam(s) XR PORTABLE CHEST AP EXAM: XR PORTABLE CHEST AP CLINICAL HISTORY: shortness of breath TECHNIQUE: 2D digital imaging was performed. COMPARISON: CR,XR XR PORTABLE CHEST AP from 12/12/2022 FINDINGS: Exam is limited by under penetration part due to patient body habitus. LUNGS: There is pulmonary artery vascular prominence. There are increased densities at the lung base s which could represent CHF. Due to the quality of the film, pneumonia also not excluded. No large effusion. HEART: Enlarged. TAVR. Mitral annular calcification. AORTA: Normal diameter. BONES: Severe degenerative changes shoulders with chronic rotator cuff tear . Soft tissues: Unremarkable. IMPRESSION: Cardiomegaly and CHF. DATA REPOSITORY: RADIATION DOSE DELIVERED:
[2023-01-04 19:16] LABS: Abs Immature Grans 0.05 10^3/uL (0.0-0.06); Absolute Basophil Count 0.04 10^3/uL (0.0-0.2); Absolute Eosinophil Count 0.11 10^3/uL (0.0-0.7); Absolute Lymphocyte Count 1.37 10^3/uL (1.2-3.4); Absolute Monocyte Count 0.66 10^3/uL (0.1-0.8); Absolute Neutrophil Count 6.23 10^3/uL (1.2-6.7); Basophils % 0.5; Eosinophils % 1.3; HCT 35.6 % (36.0-46.0); HGB 9.8 g/dL (11.2-15.7); Immature Grans % 0.6; Lymphocytes % 16.2; MCH 21.6 pg (27.0-33.0); MCHC 27.5 % (32.0-36.0); MCV 78 fL (80-95); MPV 8.7 fL (8.0-11.0); Monocytes % 7.8; Neutrophils % 73.6; Nucleated RBC 0.2 % (0.0-0.3); Platelet Count 342 10^3/uL (130-400); RBC 4.54 10^6/uL (3.93-5.22); RDW 22.5 % (11.7-14.6); RDW-SD 63.1 fL; WBC 8.46 10^3/uL (4.4-10.8)
[2023-01-04 19:21] LABS: BE 2 mmol/L (-2-3); HCO3 27 mmol/L (22-26); pCO2 50 mmHg (35-45); pH 7.34 (7.35-7.45); sO2 28 % (95-98); tCO2 26 mmol/L (23-27)
[2023-01-04 19:23] LABS: FIO2L 2 L; Site Left Brachial; pO2 21 mmHg (80-105)
[2023-01-04 19:24] LABS: FIO2 VENOUS %
[2023-01-04 19:37] LABS: Anisocytosis 1+; Diff Comment RBC Morph Reviewed; Hypochromasia 1+; Microcytosis 1+
[2023-01-04 19:38] LABS: ALT 27 U/L (14-59); AST 20 U/L (15-37); Alkaline Phosphatase 84 U/L (46-116); Anion Gap 9.2 mmol/L (3-11); BUN 44 mg/dL (7-18); Bilirubin, Total 0.4 mg/dL (0.2-1.0); CO2 26.8 mmol/L (21.0-32.0); CREATININE 2.4 mg/dL (0.55-1.02); Calcium 8.9 mg/dL (8.5-10.1); Chloride 103 mmol/L (98-107); Estimated GFR 20.42 (mL/min/1.73m2); Glucose 435 mg/dL (74-106); Potassium 5.4 mmol/L (3.5-5.1); Sodium 139 mmol/L (136-145); Total Protein 7.7 g/dL (6.4-8.2); Troponin I < 50 ng/L (<or=60)
--- NOTE | 2023-01-04 19:55 | DI.VRAD_ITS ---
Addendum created by Len Bolton MD on 01/04/2023 7:56:05 PM EDT: There has been a transcatheter aortic valve replacement (TAVR). Initial report created on 01/04/2023 7:55:23 PM EDT: PROCEDURE INFORMATION: Exam: XR Chest Exam date and time: 01/04/2023 7:33 PM Age: 77 years old Clinical indication: Shortness of breath; Patient HX: SOB; Additional info: HX of chf TECHNIQUE: Imaging protocol: Radiologic exam of the chest. Views: 1 view. COMPARISON: CR XR PORTABLE CHEST AP 12/12/2022 4:39 PM FINDINGS: Lungs: There is pulmonary venous congestion. There is diffuse interstitial edema. Underlying inflammatory or infectious process not excluded. Pleural spaces: There are no definitive pleural effusions. No evidence of pneumothorax. Heart/Mediastinum: The heart is enlarged. There is prominence of the mediastinum. Bones/joints: The skeletal structures and soft tissues show no evidence of fracture or other acute processes. Degenerative changes of the shoulder girdles bilaterally. Soft tissues: The soft tissues of the extrathoracic region are unremarkable. IMPRESSION: Probable congestive heart failure. Underlying inflammatory or infectious process not excluded. Dictated and Authenticated by: Len Bolton MD. Ordering:VALERIE Way MD
[2023-01-04] MEDS: Furosemide 20 MG/2 ML VIAL IVP (19:59)
[2023-01-04 20:20] LABS: NT-proBNP 2447 pg/mL (<300)
--- NOTE | 2023-01-04 20:29 | ED.GENADUL_ITS ---
Discharge Plan Disposition Patient Disposition: Admit to [facility] Condition: Improving Discharge Details Chief Complaint: SOB Clinical Impression: CHF exacerbation, Acute respiratory distress Admit Date/Time: 01/04/23 23:15 Admit Provider: Lori Yuan Attending Provider: Lori Yuan Primary Care Provider: Kimberly Nicole ED Provider: Regan Georges Home Meds and New Rx's Prescriptions: No Action albuterol sulfate 90 mcg/actuation HFA aerosol inhaler 2 puff IH QID PRN (DME) pen needle, diabetic [BD Ultra-Fine Mini Pen Needle] 31 gauge x 3/16 needle See Rx Instructions .Route Qty: 100 3RF Rx Instructions: As directed sucralfate 1 gram tablet 1 g PO AC & HS Qty: 120 12RF (DME) diabetic extra depth shoes See Rx Instructions .Route .MEDSUPPLY Qty: 1 0RF Rx Instructions: As directed torsemide 20 mg tablet 40 mg PO DAILY acetaminophen [Tylenol] 325 mg tablet 325 - 650 mg PO Q4H PRN PRN (Reason: pain) Qty: 30 0RF magnesium chloride 64 mg tablet,delayed release (DR/EC) 64 mg PO BID Qty: 180 3RF amiodarone 200 mg tablet 200 mg PO DAILY Qty: 90 3RF Eliquis 5 mg tablet 5 mg PO BID Qty: 60 11RF metolazone 5 mg tablet 5 mg PO .COMPLEX Qty: 60 5RF Rx Instructions: 5 mg PO As directed; Take 1 pill Mondays and , 1 hour prior to Lasix allopurinol 100 mg tablet 100 mg PO DAILY Qty: 90 1RF pantoprazole 40 mg tablet,delayed release (DR/EC) 40 mg PO DAILY Qty: 30 5RF insulin glargine 100 unit/mL (3 mL) insulin pen 15 unit subcut QPM Qty: 15 3RF (DME) blood sugar diagnostic Strip See Dose Instructions .ROUTE .MEDSUPPLY Qty: 400 3RF Dose Instruction: As directed Rx Instructions: use tid and prn.Accu-Chek Smart View Test Strip metoprolol succinate 100 mg tablet extended release 24 hr 150 mg PO DAILY Qty: 180 3RF simvastatin 10 mg tablet 10 mg PO QPM Qty: 90 3RF colchicine 0.6 mg tablet 0.6 mg PO DAILY PRN (Reason: gout) Qty: 20 3RF cholecalciferol (vitamin D3) 25 mcg (1,000 unit) Tablet 1,000 units PO DAILY Qty: 0 0RF cyanocobalamin (vitamin B-12) [Vitamin B-12] 500 mcg Tablet 1,000 mcg PO DAILY Qty: 60 0RF levalbuterol tartrate 45 mcg/actuation HFA aerosol inhaler 2 inh inhalation Q6H PRN PRN (Reason: shortness of breath or wheezing) Qty: 15 0RF potassium chloride 20 mEq tablet,ER particles/crystals 40 meq PO BIDWMEAL Qty: 120 5RF levothyroxine 75 mcg Tablet 37.5 mcg PO DAILY@0600 Qty: 15 0RF Medical Decision Making This is a 77-year-old female with a past medical history of atrial fibrillation on Eliquis, amiodarone, congestive heart failure with a preserved ejection fraction with an ejection fraction of 58% currently on furosemide 20 mg daily, TAVR and 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 Because of this procedure she did not take her morning medications as instructed. This includes her furosemide. She did take her nighttime Eliquis though. This evening the patient became somewhat more short of breath. She eventually came to the ER. Upon arrival she was noted to be in the high 80s. She admits to shortness of breath and mild chest tightness when she breathes but no chest pain otherwise. She denies any fall or trauma. No other complaints at this time. She has received BiPAP in the past for CHF exacerbations. No other modifying factors. No other complaints Physical exam demonstrates crackles throughout, +2 pitting edema. Concern for CHF exacerbation. Bedside echo demonstrates an EF around 55%, B-lines throughout the lungs. Patient will be started on BiPAP, will give 20 of Lasix, will monitor closely and reassess. 11:50 PM Patient's laboratory work-up demonstrates slightly elevated PCO2, ABG shows low PO2, however I suspect this is likely venous based on that finding as she was saturating well at the time that the ABG was done. proBNP mildly elevated but near baseline. Troponin and repeat troponin normal. EKG stable aside for evidence of mild depressions in the lateral leads. Inverted T wave in lead III and aVF. These are stable between the 2 new EKGs today, but slightly new compared to prior. Patient is feeling much better after BiPAP and Lasix. She has had a few urinary movements. Patient appropriate for admission at this time. Discussed the case with Dr. Yuan, she agrees with the assessment and plan. I have extensively reviewed the treatment plan with the patient. I have addressed all patient concerns at this time. I have also discussed the plan with the admitting physician and they agree with the current assessment and plan and have agreed to assume responsibility for the patient. All parties demonstrate verbal understanding and agreement with our assessment and plan at this time. The documentation in this chart was dictated using [employer] dictation software. Please excuse any dictation errors. We did trial the patient off of BiPAP, and took her off all supplemental oxygen. She stays that around 92%. We will continue her on BiPAP. FINDINGS: Lungs: There is pulmonary venous congestion. There is diffuse interstitial edema. Underlying inflammatory or infectious process not excluded. Pleural spaces: There are no definitive pleural effusions. No evidence of pneumothorax. Heart/Mediastinum: The heart is enlarged. There is prominence of the mediastinum. Bones/joints: The skeletal structures and soft tissues show no evidence of fracture or other acute processes. Degenerative changes of the shoulder girdles bilaterally. Soft tissues: The soft tissues of the extrathoracic region are unremarkable. IMPRESSION: Probable congestive heart failure. Underlying inflammatory or infectious process not excluded. Thank you for allowing us to participate in the care of your patient HPI General Date/Time Provider Initiated Documentation: 01/04/23 19:00 . 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 Because of this procedure she did not take her morning medications as instructed. This includes her furosemide. She did take her nighttime Eliquis though. This evening the patient became somewhat more short of breath. She eventually came to the ER. Upon arrival she was noted to be in the high 80s. She admits to shortness of breath and mild chest tightness when she breathes but no chest pain otherwise. She denies any fall or trauma. No other complaints at this time. She has received BiPAP in the past for CHF exacerbations. No other modifying factors. No other complaints Related Data Home Medications Medication Instructions Recorded Confirmed albuterol sulfate 90 mcg/actuation 2 puff inhalation QID PRN 04/17/18 01/04/23 aerosol inhaler acetaminophen 325 mg tablet 325 - 650 mg PO Q4H PRN PRN pain 05/24/18 01/04/23 (Tylenol) #30 tabs magnesium chloride 64 mg 64 mg PO BID #180 tabs 04/07/21 01/04/23 (magnesium chloride) tablet,delayed release sucralfate 1 gram tablet 1 g PO AC & HS #120 tabs 02/05/22 01/04/23 pen needle, diabetic 31 gauge x #100 ea 03/12/22 01/04/2310/21 (BD Ultra-Fine Mini Pen Needle) amiodarone 200 mg tablet 200 mg PO DAILY #90 tabs 06/01/22 01/04/23 cholecalciferol (vitamin D3) 25 1,000 units PO DAILY #0 tabs 06/30/22 01/04/23 mcg (1,000 unit) tablet apixaban 5 mg tablet (Eliquis) 5 mg PO BID #60 tabs 08/03/22 01/04/23 metolazone 5 mg tablet 5 mg PO .COMPLEX #60 tabs 08/23/22 01/04/23 allopurinol 100 mg tablet 100 mg PO DAILY #90 tabs 09/03/22 01/04/23 pantoprazole 40 mg tablet,delayed 40 mg PO DAILY #30 tabs 10/04/22 01/04/23 release diabetic extra depth shoes #1 ea 10/13/22 01/04/23 insulin glargine 100 unit/mL (3 15 unit (0.15 mL) subcut QPM #15 mL 10/14/22 01/04/23 mL) subcutaneous pen blood sugar diagnostic #400 ea 11/20/22 01/04/23 metoprolol succinate 100 mg 150 mg PO DAILY #180 tabs 12/09/22 01/04/23 tablet,extended release 24 hr simvastatin 10 mg tablet 10 mg PO QPM #90 tabs 12/09/22 01/04/23 cyanocobalamin (vitamin B-12) 500 1,000 mcg PO DAILY #60 tabs 12/15/22 01/04/23 mcg tablet (Vitamin B-12) levalbuterol tartrate 45 2 inh inhalation Q6H PRN PRN 12/15/22 01/04/23 mcg/actuation aerosol inhaler shortness of breath or wheezing #15 grams levothyroxine 75 mcg tablet 37.5 mcg PO DAILY@0600 #15 tabs 12/15/22 01/04/23 potassium chloride 20 mEq 40 meq PO BIDWMEAL #120 tabs 12/15/22 01/04/23 tablet,extended release(part/cryst) colchicine 0.6 mg tablet 0.6 mg PO DAILY PRN gout #20 tabs 12/20/22 01/04/23 torsemide 20 mg tablet 40 mg PO DAILY 12/21/22 01/04/23 Previous Rx's Medication Instructions Recorded acetaminophen 325 mg tablet 325 - 650 mg PO Q4H PRN PRN pain 05/24/18 (Tylenol) #30 tabs magnesium chloride 64 mg 64 mg PO BID #180 tabs 04/07/21 (magnesium chloride) tablet,delayed release sucralfate 1 gram tablet 1 g PO AC & HS #120 tabs 02/05/22 pen needle, diabetic 31 gauge x #100 ea 03/12/2210/21 (BD Ultra-Fine Mini Pen Needle) amiodarone 200 mg tablet 200 mg PO DAILY #90 tabs 06/01/22 cholecalciferol (vitamin D3) 25 1,000 units PO DAILY #0 tabs 06/30/22 mcg (1,000 unit) tablet apixaban 5 mg tablet (Eliquis) 5 mg PO BID #60 tabs 08/03/22 metolazone 5 mg tablet 5 mg PO .COMPLEX #60 tabs 08/23/22 allopurinol 100 mg tablet 100 mg PO DAILY #90 tabs 09/03/22 pantoprazole 40 mg tablet,delayed 40 mg PO DAILY #30 tabs 10/04/22 release diabetic extra depth shoes #1 ea 10/13/22 insulin glargine 100 unit/mL (3 15 unit (0.15 mL) subcut QPM #15 mL 10/14/22 mL) subcutaneous pen blood sugar diagnostic #400 ea 04/15/23 metoprolol succinate 100 mg 150 mg PO DAILY #180 tabs 12/09/22 tablet,extended release 24 hr simvastatin 10 mg tablet 10 mg PO QPM #90 tabs 12/09/22 cyanocobalamin (vitamin B-12) 500 1,000 mcg PO DAILY #60 tabs 12/15/22 mcg tablet (Vitamin B-12) levalbuterol tartrate 45 2 inh inhalation Q6H PRN PRN 12/15/22 mcg/actuation aerosol inhaler shortness of breath or wheezing #15 grams levothyroxine 75 mcg tablet 37.5 mcg PO DAILY@0600 #15 tabs 12/15/22 potassium chloride 20 mEq 40 meq PO BIDWMEAL #120 tabs 12/15/22 tablet,extended release(part/cryst) colchicine 0.6 mg tablet 0.6 mg PO DAILY PRN gout #20 tabs 12/20/22 Allergies Allergy/AdvReac Type Severity Reaction Status Date / Time ceftriaxone Allergy Intermediate Hives Verified 12/21/22 10:11 aspirin Allergy Hives Verified 12/21/22 10:11 Penicillins Allergy Verified 12/21/22 10:11 tetracycline Allergy Verified 12/21/22 10:11 adhesive AdvReac Intermediate Topical Verified 12/21/22 10:11 Irritation General Stated Complaint: SOB BROOKE: 2 Review of Systems All systems reviewed & are unremarkable except as noted in HPI and below PFSH All Active Problems (Updated 01/05/23 @ 01:12 by Regan Georges DO) CHF exacerbation (Acute) Acute respiratory distress (Acute) DVT prophylaxis (Acute) Acute on chronic right-sided congestive heart failure (Acute) Obesity, morbid (Chronic) a. BMI of 52 Atrial fibrillation (Chronic 06/23/12) 02/19 start Tikosyn 06/21 and 11/20 recurrent 2013 ablation at [facility] echo 2012 at [facility], normal LVEF and valves 05/2021 RVR, s/p RODRIGUEZ CV and change to amiodarone. Essential hypertension (Chronic 08/13/13) Hyperlipidemia (Acute) Hypothyroidism (Chronic 12/06/14) Obstructive sleep apnea syndrome (Chronic 09/26/12) DX SEP 2012 AT [facility]; wears CPAP machine. Gout (Chronic) intermittent, diet based. 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 tachycardia [facility] current use of antiarrhythmic medical therapy (08/21/13) Osteoarthritis Peptic ulcer disease with hemorrhage hx x 3 Pre-ulcerative corn or callous Restless legs (01/18/13) sleep study low iron (not anemic) Severe aortic stenosis Surgical History History of esophagogastroduodenoscopy (EGD) (~05/2018) 07/10/18 History of open sigmoidectomy S/P colonoscopy (~07/10/18) Status post abdominal hysterectomy Status post appendectomy Status post total bilateral knee replacement Status post transcatheter aortic valve replacement (TAVR) using bioprosthesis (~04/2021) Complicated by extravasation of contrast on iliofemoral angiography. 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 Son No problems noted. 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 Pets and animals: Yes Pets and animals: dog(s) Sexually active: Yes Do you think of yourself as: straight/heterosexual Current gender identity: female What is your relationship status?: How often do you talk on the phone with friends or family?: twice per week How often do you get together with friends or relatives?: three or more times per week How often do you attend voodoo or jain services?: 4 or more times per year Do you belong to any clubs or organized social groups?: no Panel score (0-1 are the most socially isolated patients): 3 What type of physical activity do you participate in: walking Duration: < 15 minutes/day Frequency: 1-2 times per week Radha/Oriental Orthodox: Shinto Special radha needs: No Seatbelt use: always Drive intox or ride w/intox steam train driver: No Do you feel safe at home: Yes Do you feel safe in your relationship?: Yes Additional Social history: at bedside Exam Narrative Exam Narrative: 1.Const: Well-nourished, Well-developed, appearing stated age 2.Eyes: PERRL, no conjunctival injection, and symmetrical lids. 3.ENT: Atraumatic external nose and ears. Moist MM. Neck: Symmetric, trachea midline, No thyromegaly. 4.CVS: +S1/S2, No murmurs or gallops. Peripheral pulses 2+ and equal in all extremities. Brisk capillary refill in all extremities. 5.RESP: Mildly labored respiratory effort. Mild crackles throughout. No wheezes or rhonchi. 6.GI: Soft, Nontender/Nondistended, No hepatosplenomegaly. No guarding or rebound. 7.MSK: Normocephalic/Atraumatic, Extremities w/o deformity or ttp No cyanosis or clubbing, Normal movement of all extremities. +2 pitting edema bilaterally. 8.Skin: Warm, Dry. No rashes or lesions. 9.Neuro: bacteriologist medical II-XII grossly intact. Sensation grossly intact, no focal neurologic deficits. 10.Psych: (AAO) x3. Appropriate mood and affect Course Vital Signs Vital signs: Vital Signs Temperature 37.2 C 01/04/23 18:32 Pulse 75 01/04/23 18:32 Respiratory Rate 18 01/04/23 18:32 Blood Pressure 147/104 H 01/04/23 18:32 Pulse Oximetry 88 L 01/04/23 18:32 Temperature 37.2 C 01/04/23 18:32 Pulse 66 01/04/23 19:25 Pulse 68 01/04/23 19:40 Respiratory Rate 25 H 01/04/23 19:40 Respiratory Effort Short of Breath, Labored 01/04/23 18:58 Respiratory Depth Deep 01/04/23 18:58 Respiratory Pattern Tachypnea 01/04/23 18:58 Blood Pressure 119/61 01/04/23 19:01 Blood Pressure Mean 70 01/04/23 19:01 Blood Pressure Position Sitting 01/04/23 18:32 Pulse Oximetry 93 01/04/23 19:30 Oxygen Delivery Method Room Air 01/04/23 18:32 Oxygen Flow Rate 0 01/04/23 18:32 Fraction of Inspired Oxygen (FIO2) 21 01/04/23 19:25 Pain Level 0 01/04/23 18:32 Lab/Test Results Lab/Test Results: Laboratory Tests Range/Units 01/04/23 01/04/23 01/04/23 18:48 18:48 19:20 WBC (4.4-10.8) 10^3/uL 8.46 RBC (3.93-5.22) 10^6/uL 4.54 Hgb (11.2-15.7) g/dL 9.8 L Hct (36.0-46.0) % 35.6 L MCV (80-95) fL 78 L MCH (27.0-33.0) pg 21.6 L MCHC (32.0-36.0) % 27.5 L RDW (11.7-14.6) % 22.5 H Plt Count (130-400) 10^3/uL 342 MPV (8.0-11.0) fL 8.7 Immature Gran % 0.6 Neutrophils % 73.6 Lymphocytes % 16.2 Monocytes % 7.8 Eosinophils % 1.3 Basophils % 0.5 Nucleated RBC % (0.0-0.3) % 0.2 Absolute Neutrophils (1.2-6.7) 10^3/uL 6.23 Absolute Lymphocytes (1.2-3.4) 10^3/uL 1.37 Absolute Monocytes (0.1-0.8) 10^3/uL 0.66 Absolute Eosinophils (0.0-0.7) 10^3/uL 0.11 Absolute Basophils (0.0-0.2) 10^3/uL 0.04 RBC Morphology See Below Hypochromasia 1+ Anisocytosis 1+ Microcytosis 1+ ABG Sample Site Left Brachial ABG pH (7.35-7.45) 7.34 L ABG pCO2 (35-45) mmHg 50 H ABG pO2 (80-105) mmHg 21 L* ABG HCO3 (22-26) mmol/L 27 H ABG Total CO2 (23-27) mmol/L 26 ABG O2 Saturation (95-98) % 28 L ABG Base Excess (-2-3) mmol/L 2 Oxygen Liter Flow L 2 FiO2 % VENOUS Sodium (136-145) mmol/L 139 Potassium (3.5-5.1) mmol/L 5.4 H Chloride (98-107) mmol/L 103 Carbon Dioxide (21.0-32.0) mmol/L 26.8 Anion Gap (3-11) mmol/L 9.2 BUN (7-18) mg/dL 44 H Creatinine (0.55-1.02) mg/dL 2.4 H Est GFR (CKD-EPI 2020) (mL/min/1.73m2) 20.42 Glucose (74-106) mg/dL 435 H Calcium (8.5-10.1) mg/dL 8.9 Magnesium (1.8-2.4) mg/dL 2.0 Total Bilirubin (0.2-1.0) mg/dL 0.4 AST (15-37) U/L 20 ALT (14-59) U/L 27 Alkaline Phosphatase (46-116) U/L 84 Troponin I (<or=60) ng/L < 50 Total Protein (6.4-8.2) g/dL 7.7 Albumin (3.4-5.0) g/dL 3.0 L Critical Care Time Critical Care Time Critical Care Time: Yes Total Critical Care Time: 45 Attestation: Upon my evaluation, this patient had a high probability of imminent or life- threatening deterioration, which required my direct attention, intervention, and personal management. I have personally provided 45 minutes of critical care time exclusive of time spent on separately billable procedures. Time includes review of laboratory data, radiology results, discussion with consultants, and monitoring for potential decompensation. Interventions were performed as documented.
--- NOTE | 2023-01-04 22:15 | RT.EKG_ITS ---
APPROVED REPORT Exam: Resting ECG Reason for Exam: short of breath Patient Location: E HR:63 bpm ECG Measurements Heart Rate 63 AXIS TN 169 P 91 QRSd 113 QRS -48 QT 433 T -72 QTc 444 Conclusion Sinus rhythm...normal P axis, V-rate 60- 99 Atrial premature complex...SV complex w/ short R-R interval Incomplete left bundle branch block...QRSd>110mS, terminal axis(-90,-1) Physician: negative sgarbossa, no stemi, persistent minimal depressions in V4-V6, inverted t waves II I and AVF
--- NOTE | 2023-01-04 22:55 | NUR.NOTE ---
Nursing Note: BiPAP removed. Patient sating 90-92% on room air. Denies SOB, chest discomfort.
--- NOTE | 2023-01-04 23:23 | HPE_ITS ---
Date of service: 01/04/23 Time of Service: :23 Assessment and Plan Assessment and plan (1) Acute on chronic right-sided congestive heart failure: Status: Acute Assessment and plan: Continue to diurese aggressively. At this point, I think we should move on to furosemide gtt. Monitor I&Os and daily weights. Resume home CPAP. Will obtain [place] [facility] [place] find out if she just had an echo. (2) Atrial fibrillation: Status: Chronic Assessment and plan: S/p cardioversion 01/04/23 [place] [facility] Remains in sinus rhythm here. Obtain records. Continue amiodarone, metoprolol, apixaban. Monitor on tele. Qualifiers: Atrial fibrillation type: longstanding persistent Qualified Code(s): I48.11 - Longstanding persistent atrial fibrillation (3) Essential hypertension: Status: Chronic Assessment and plan: Continue home metoprolol. (4) Hyperlipidemia: Status: Acute Assessment and plan: Continue simvastatin (5) Obstructive sleep apnea syndrome: Status: Chronic Assessment and plan: Normally on CPAP. Will continue this. (6) DVT prophylaxis: Status: Acute Assessment and plan: ON therapeutic apixaban (7) Discharge planning issues: Status: Resolved Assessment and plan: DNR/DNI C/s PT. History of Present Illness History of Present Illness Chief Complaint: Shortness of breath Narrative: Ms Iqbal is a 77 year old female with PMHx of R-sided CHF on torsemide, Afib on amiodarone, metopololol, and eliquis, as well as h/o IDDM2, hypothyroidism, LAI on CPAP who presented to [facility] ED c/o shortness of breath after being discharged [place] [facility] [place] a cardioversion earlier today. The patient states that she knows she was filling up with fluid even before the procedure because she had gained 8 lbs in 2 days, but she was not short of breath until she got home after her cardioversion. She states she thinks she received 1 bag of IV fluid while at [facility]. She did not take her diuretics today. In the ED, she was hypoxic to the 80s on RA, was initiated on BiPAP, given a dose of furosemide 20 mg IV with improvement of her symptoms. Hospitalists were contacted for admission. At that time, she was saturating 91-92% on RA. Upon arrival to the ICU (as a medsurg overlow), the patient became hypoxic to the 70s laying down in bed. She is now on 4L of O2 saturating in the 90s. Review of Systems All systems reviewed & are unremarkable except as noted in HPI and below PFSH All Active Problems (Updated 01/05/23 @ 01:12 by Regan Georges DO) CHF exacerbation (Acute) Acute respiratory distress (Acute) DVT prophylaxis (Acute) Acute on chronic right-sided congestive heart failure (Acute) Obesity, morbid (Chronic) a. BMI of 52 Atrial fibrillation (Chronic 06/23/12) 02/19 start Tikosyn 06/21 and 11/20 recurrent 2012 ablation at [facility] [place] 2012 [place] [facility], normal LVEF and valves 05/2021 RVR, s/p RODRIGUEZ CV and change to amiodarone. Essential hypertension (Chronic 08/13/13) Hyperlipidemia (Acute) Hypothyroidism (Chronic 12/06/14) Obstructive sleep apnea syndrome (Chronic 09/26/12) DX SEP 2012 AT [facility]; wears CPAP machine. Gout (Chronic) intermittent, diet based. 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 tachycardia FPC current use of antiarrhythmic medical therapy (08/21/13) Osteoarthritis Peptic ulcer disease with hemorrhage hx x 3 Pre-ulcerative corn or callous Restless legs (01/18/13) sleep study low iron (not anemic) Severe aortic stenosis Surgical History History of esophagogastroduodenoscopy (EGD) (~05/2018) 07/10/18 History of open sigmoidectomy S/P colonoscopy (~07/10/18) Status post abdominal hysterectomy Status post appendectomy Status post total bilateral knee replacement Status post transcatheter aortic valve replacement (TAVR) using bioprosthesis (~04/2021) Complicated by extravasation of contrast on iliofemoral angiography. 2 covered stents placed in the artery EIA extending into the R [employer] Family History Mother , 65 Thoracic aneurysm, ruptured Personal history of malignant neoplasm LYMPHOMA Father , 64 Heart disease Myocardial infarction Stroke Maternal Grandfather , 80 Heart disease Stroke Paternal Grandfather , 65 Heart disease Maternal Grandmother , 83 Heart disease Paternal Grandmother , 40 Cancer Son No problems noted. Son No problems noted. 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 Pets and animals: Yes Pets and animals: dog(s) Sexually active: Yes Do you think of yourself as: straight/heterosexual Current gender identity: female What is your relationship status?: How often do you talk on the phone with friends or family?: twice per week How often do you get together with friends or relatives?: three or more times per week How often do you attend yarsani or gnosticism services?: 4 or more times per year Do you belong to any clubs or organized social groups?: no Panel score (0-1 are the most socially isolated patients): 3 What type of physical activity do you participate in: walking Duration: < 15 minutes/day Frequency: 1-2 times per week Radha/Oriental Orthodox: Yarsani Special radha needs: No Seatbelt use: always 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 Do you feel safe at home: Yes Do you feel safe in your relationship?: Yes Additional Social history: at bedside Meds Allergies and Home Medications Allergies Allergy/AdvReac Type Severity Reaction Status Date / Time ceftriaxone Allergy Intermediate Hives Verified 12/21/22 10:11 aspirin Allergy Hives Verified 12/21/22 10:11 Penicillins Allergy Verified 12/21/22 10:11 tetracycline Allergy Verified 12/21/22 10:11 adhesive AdvReac Intermediate Topical Verified 12/21/22 10:11 Irritation Home Medications Medication Instructions Recorded Confirmed Type albuterol sulfate 90 mcg/actuation 2 puff inhalation QID PRN 04/17/18 01/04/23 History aerosol inhaler acetaminophen 325 mg tablet 325 - 650 mg PO Q4H PRN PRN pain 05/24/18 01/04/23 Rx (Tylenol) #30 tabs magnesium chloride 64 mg 64 mg PO BID #180 tabs 04/07/21 01/04/23 Rx (magnesium chloride) tablet,delayed release sucralfate 1 gram tablet 1 g PO AC & HS #120 tabs 02/05/22 01/04/23 Rx pen needle, diabetic 31 gauge x #100 ea 03/12/22 01/04/23 Rx 3/16 (BD Ultra-Fine Mini Pen Needle) amiodarone 200 mg tablet 200 mg PO DAILY #90 tabs 06/01/22 01/04/23 Rx cholecalciferol (vitamin D3) 25 1,000 units PO DAILY #0 tabs 06/30/22 01/04/23 Rx mcg (1,000 unit) tablet apixaban 5 mg tablet (Eliquis) 5 mg PO BID #60 tabs 08/03/22 01/04/23 Rx metolazone 5 mg tablet 5 mg PO .COMPLEX #60 tabs 08/23/22 01/04/23 Rx allopurinol 100 mg tablet 100 mg PO DAILY #90 tabs 09/03/22 01/04/23 Rx pantoprazole 40 mg tablet,delayed 40 mg PO DAILY #30 tabs 10/04/22 01/04/23 Rx release diabetic extra depth shoes #1 ea 10/13/22 01/04/23 Rx insulin glargine 100 unit/mL (3 15 unit (0.15 mL) subcut QPM #15 mL 10/14/22 01/04/23 Rx mL) subcutaneous pen blood sugar diagnostic #400 ea 11/20/22 01/04/23 Rx metoprolol succinate 100 mg 150 mg PO DAILY #180 tabs 12/09/22 01/04/23 Rx tablet,extended release 24 hr simvastatin 10 mg tablet 10 mg PO QPM #90 tabs 12/09/22 01/04/23 Rx cyanocobalamin (vitamin B-12) 500 1,000 mcg PO DAILY #60 tabs 12/15/22 01/04/23 Rx mcg tablet (Vitamin B-12) levalbuterol tartrate 45 2 inh inhalation Q6H PRN PRN 12/15/22 01/04/23 Rx mcg/actuation aerosol inhaler shortness of breath or wheezing #15 grams levothyroxine 75 mcg tablet 37.5 mcg PO DAILY@0600 #15 tabs 12/15/22 01/04/23 Rx potassium chloride 20 mEq 40 meq PO BIDWMEAL #120 tabs 12/15/22 01/04/23 Rx tablet,extended release(part/cryst) colchicine 0.6 mg tablet 0.6 mg PO DAILY PRN gout #20 tabs 12/20/22 01/04/23 Rx torsemide 20 mg tablet 40 mg PO DAILY 12/21/22 01/04/23 History Exam Narrative Exam Narrative: General: Pleasant obese female who is A&Ox3, appears moderately dyspneic while sitting up at the edge of the bed Neurological: A&Ox3, no focal deficits Psychiatric: Appropriate speech patter/content Skin: Visible skin intact HEENT: Atraumatic, normocephalic, EOMI, MMM, clear oropharynx, no submandibular or cervical lymphadenopathy, no goiter or JVD Cardiovascular: RRR, no m/r/g Lungs: crackles at B bases, L>R Gastrointestinal: soft, nontender, nondistended Genitourinary: has a nation Extremities: trace edema BLEs, 1+ pedal pulese B, no c/c. Results Imaging Additional studies: CXR; Probable congestive heart failure. Underlying inflammatory or infectious process not excluded. EKG #1: NSR, HR 70, IVCD, inferolateral ST depressions and T wave inversions EKG #2: NSR, HR 63,IVCD, inferolateral ST depressions, T wave inversions Labs 01/04/23 18:48 01/04/23 18:48 Labs: Laboratory Results - last 24 hr 01/04/23 01/04/2323 18:48 18:48 19:20 WBC 8.46 RBC 4.54 Hgb 9.8 L Hct 35.6 L MCV 78 L MCH 21.6 L MCHC 27.5 L RDW 22.5 H Plt Count 342 MPV 8.7 Immature Gran % 0.6 Neutrophils % 73.6 Lymphocytes % 16.2 Monocytes % 7.8 Eosinophils % 1.3 Basophils % 0.5 Nucleated RBC % 0.2 Absolute Neutrophils 6.23 Absolute Lymphocytes 1.37 Absolute Monocytes 0.66 Absolute Eosinophils 0.11 Absolute Basophils 0.04 RBC Morphology See Below Hypochromasia 1+ Anisocytosis 1+ Microcytosis 1+ ABG Sample Site Left Brachial ABG pH 7.34 L ABG pCO2 50 H ABG pO2 21 L* ABG HCO3 27 H ABG Total CO2 26 ABG O2 Saturation 28 L ABG Base Excess 2 Oxygen Liter Flow 2 FiO2 VENOUS Sodium 139 Potassium 5.4 H Chloride 103 Carbon Dioxide 26.8 Anion Gap 9.2 BUN 44 H Creatinine 2.4 H Est GFR (CKD-EPI 2020) 20.42 Glucose 435 H Calcium 8.9 Magnesium 2.0 Total Bilirubin 0.4 AST 20 ALT 27 Alkaline Phosphatase 84 Troponin I < 50 NT-Pro-B Natriuret Pep Total Protein 7.7 Albumin 3.0 L 01/04/23 19:20 WBC RBC Hgb Hct MCV MCH MCHC RDW Plt Count MPV Immature Gran % Neutrophils % Lymphocytes % Monocytes % Eosinophils % Basophils % Nucleated RBC % Absolute Neutrophils Absolute Lymphocytes Absolute Monocytes Absolute Eosinophils Absolute Basophils RBC Morphology Hypochromasia Anisocytosis Microcytosis ABG Sample Site ABG pH ABG pCO2 ABG pO2 ABG HCO3 ABG Total CO2 ABG O2 Saturation ABG Base Excess Oxygen Liter Flow FiO2 Sodium Potassium Chloride Carbon Dioxide Anion Gap BUN Creatinine Est GFR (CKD-EPI 2020) Glucose Calcium Magnesium Total Bilirubin AST ALT Alkaline Phosphatase Troponin I NT-Pro-B Natriuret Pep 2447 H Total Protein Albumin Last Vital Signs Temp 37.2 C 01/04/23 18:32 Pulse 66 01/04/23 22:46 Resp 26 H 01/04/23 22:50 BP 120/49 L 01/04/23 22:46 Pulse Ox 93 01/04/23 22:50 Time Spent Time spent with Patient: 55-74 minutes Time was spent: preparing to see the patient(eg.review tests), obtaining and/or reviewing separately otained hiistory, ordering medications,tests, procedures, referring, communicating with other health acute care nurse practitioner, indepentently interpreting results, counseling the patient and care coordination
[2023-01-04 23:46] LABS: Troponin I < 50 ng/L (<or=60)
[2023-01-05] VITALS (109 sets, daily range): BP systolic 83–163; BP diastolic 40–77; PULSE 56–179; RESP 15–40; TEMP 36.5–37.2; O2SAT 81–100
[2023-01-05] MEDS: Furosemide 40 MG/4 ML VIAL 20 MG IVP (00:45)
[2023-01-05] MEDS: Insulin Glargine 300 UNITS/3 ML PEN 15 UNITS SC ×2 (01:35→21:06)
[2023-01-05] MEDS: Acetaminophen 325 MG TAB PO (03:45)
[2023-01-05] MEDS: Levothyroxine 75 MCG TAB 37.5 MCG PO (06:17)
[2023-01-05 06:23] LABS: Abs Immature Grans 0.04 10^3/uL (0.0-0.06); Absolute Basophil Count 0.05 10^3/uL (0.0-0.2); Absolute Eosinophil Count 0.18 10^3/uL (0.0-0.7); Absolute Monocyte Count 0.92 10^3/uL (0.1-0.8); Basophils % 0.6; Eosinophils % 2.1; HCT 33.7 % (36.0-46.0); HGB 9.3 g/dL (11.2-15.7); Immature Grans % 0.5; Lymphocytes % 17.3; MCH 21.4 pg (27.0-33.0); MCHC 27.6 % (32.0-36.0); MCV 78 fL (80-95); MPV 8.5 fL (8.0-11.0); Monocytes % 10.6; Neutrophils % 68.9; Platelet Count 312 10^3/uL (130-400); RBC 4.35 10^6/uL (3.93-5.22); RDW 22.3 % (11.7-14.6); RDW-SD 61.3 fL; WBC 8.69 10^3/uL (4.4-10.8)
[2023-01-05 06:34] LABS: Anion Gap 10.8 mmol/L (3-11); BUN 46 mg/dL (7-18); CO2 27.2 mmol/L (21.0-32.0); Chloride 104 mmol/L (98-107); Estimated GFR 25.41 (mL/min/1.73m2); Glucose 127 mg/dL (74-106); Potassium 4.3 mmol/L (3.5-5.1); Sodium 142 mmol/L (136-145)
--- NOTE | 2023-01-05 08:04 | INITIAL_ITS ---
Date of service: 01/05/23 Time of Service: 08:04 Care Management Initial Assmt Initial Assessment REASON FOR HOSPITALIZATION:: CHF PREVIOUS FUNCTIONAL STATUS/SOCIAL/FAMILY SUPPORTS:: Maliha lives in a single family home in [place] [facility] with her Marcell. They have 2 sons; Eben lives in [place] and Demetrio lives down the road from his parents. 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 Maliha is independent at baseline, drives and does not have any community services. She does use a cane occasionally at night. CURRENT FUNCTIONAL STATUS:: Maliha was sitting up in bed in the ICU when CM met with her. She was visibly short of breath so questions were kept to a minimum. This morning a code blue was called for Maliha when she had a choking episode and her heart rate went into a wide complex rhythm, thought to be ventricular in nature, at 180 beats/minute. She was cardioverted and converted to an afib rhythm at 140-150 beats per minute. EP Cardiology at [facility] [place] consulted and after reviewing her rhythm strips and EKG, they determined it was actually afib with aberrancy. She will not be transferred at this time unless there is another similar episode, however she will be scheduled next week for an AVJ ablation and placement of a pacemaker. ADVANCE DIRECTIVES:: on file. Marcell Iqbal [facility] Has patient been provided with info about the portal/API?: Yes Did the patient sign up for the portal?: Yes CODE STATUS:: DNR/DNI INSURANCE COVERAGE / FINANCIAL ISSUES:: Medicare Advantage CURRENT HOME/COMMUNITY SERVICES/EQUIPMENT:: has a walker PRIMARY CARE PHYSICIAN:: Kimberly Nicole POTENTIAL DISCHARGE NEEDS:: Follow up with PCP, cardiology and plan of care PATIENT/FAMILY EDUCATION NEEDS:: Review of discharge instructions, limitations, activity, medications, follow up plan and Ask Me Three TRANSPORTATION:: via private vehicle with family PLAN:: Anticipate Maliha will discharge home with no new services when medically cleared. She will follow up with her community providers and plan of care and transport with family. CM will follow and assess for discharge planning concerns. PFSH All Active Problems (Updated 01/05/23 @ 01:12 by Regan Georges DO) CHF exacerbation (Acute) Acute respiratory distress (Acute) DVT prophylaxis (Acute) Acute on chronic right-sided congestive heart failure (Acute) Obesity, morbid (Chronic) a. BMI of 52 Atrial fibrillation (Chronic 06/23/12) 02/19 start Tikosyn 06/21 and 11/20 recurrent 2012 ablation at [facility] echo 2012 at [facility], normal LVEF and valves 05/2021 RVR, s/p RODRIGUEZ CV and change to amiodarone. Essential hypertension (Chronic 08/13/13) Hyperlipidemia (Acute) Hypothyroidism (Chronic 12/06/14) Obstructive sleep apnea syndrome (Chronic 09/26/12) DX SEP 2012 AT [facility]; wears CPAP machine. Gout (Chronic) intermittent, diet based. 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 2 covered stents placed in the artery EIA extending into the R OBSTETRICS/GYNECOLOGY NURSE Family History Mother , 65 Thoracic aneurysm, ruptured Personal history of malignant neoplasm LYMPHOMA Father , 64 Heart disease Myocardial infarction Stroke Maternal Grandfather , 80 Heart disease Stroke Paternal Grandfather , 65 Heart disease Maternal Grandmother , 83 Heart disease Paternal Grandmother , 40 Cancer Son No problems noted. Son No problems noted. 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 Pets and animals: Yes Pets and animals: dog(s) Sexually active: Yes Do you think of yourself as: straight/heterosexual Current gender identity: female What is your relationship status?: How often do you talk on the phone with friends or family?: twice per week How often do you get together with friends or relatives?: three or more times per week How often do you attend gnosticist or adventism services?: 4 or more times per year Do you belong to any clubs or organized social groups?: no Panel score (0-1 are the most socially isolated patients): 3 What type of physical activity do you participate in: walking Duration: < 15 minutes/day Frequency: 1-2 times per week Radha/Zoroastrian: Zoroastrianism Special radha needs: No Seatbelt use: always Drive intox or ride w/intox 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
--- NOTE | 2023-01-05 08:20 | PGE_ITS ---
Date of Service Date of service: 01/05/23 Time of Service: 08:20 Assessment and Plan Assessment and plan (1) Acute on chronic right-sided congestive heart failure: Status: Acute Assessment and plan: Continue aggressive diuresis with Lasix drip along with oral spironolactone and metolazone. Monitor daily weights. She states her baseline weight is 221 pounds. Current weight is 106.5 kg or 234 pounds. Monitor daily electrolytes and replace potassium magnesium as needed. Consult with Dr. Becerra her primary otr tanker 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. Professional time spent interviewing and examining patient, discussion of goals of care with hospital team (care management, nursing and consulting professionals) was 45 minutes. (2) Atrial fibrillation: Status: Chronic Assessment and plan: S/p cardioversion 01/04/23 at [facility]. Remains in sinus rhythm here. Obtain records. Continue apixaban and Toprol-XL. Note her Toprol-XL dose was increased to 200 mg daily. Amiodarone was discontinued in the last month by her otr tanker 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 at [facility] due to lack of efficacy and maintaining sinus rhythm. Patient is wanting her otr tanker 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 to consider AV chris ablation and placement of a pacemaker. Qualifiers: Atrial fibrillation type: longstanding persistent Qualified Code(s): I48.11 - Longstanding persistent atrial fibrillation (3) Essential hypertension: Status: Chronic Assessment and plan: Continue home metoprolol XL which is 200 mg daily. (4) Hyperlipidemia: Status: Acute Assessment and plan: Continue simvastatin (5) Obstructive sleep apnea syndrome: Status: Chronic Assessment and plan: Normally on CPAP. Will continue this. However patient did require BiPAP last night for acute pulmonary edema. (6) DVT prophylaxis: Status: Acute Assessment and plan: ON therapeutic apixaban (7) Discharge planning issues: Status: Resolved Assessment and plan: DNR/DNI C/s PT. Subjective Subjective Interval history since last seen: Patient was admitted last night with acute exacerbation of CHF. Patient has known recurrent paroxysmal atrial fibrillation for which she has had prior ablation done at [facility]. She was admitted last night after undergoing DCC cardioversion at [facility] yesterday. Apparently they hydrated with a liter of fluid and patient has been told to hold her Lasix and her Toprol XL yesterday. She presented in florid pulmonary edema last night and started on Lasix drip. She has known history of TAVR for aortic stenosis and she tells me that she now has significant mitral regurgitation. Last echocardiogram done at [facility] about a month ago. She is followed locally by Dr. Becerra from we will asked to follow-up with her during this hospitalization. She diuresed 1200 mL last night on a Lasix drip after being given 80 mg of furosemide IV push and subsequent drip at 5 mg an hour which is now down to 2.5 mg an hour. Patient states she is no on amiodarone this was discontinued by her otr tanker 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 at [facility] previously she had been on Tikosyn but caused renal insufficiency. Patient denies any chest pressure or pain this morning she did have some chest heaviness last night when she had acute dyspnea. Exam Narrative Exam Narrative: Elderly obese white female who is sitting up in a chair she is able to talk in complete sentences but gets dyspneic with prolonged conversation. Neck is short and obese difficult to discern JVD particular with her sitting up in her chair. Lungs with bibasilar rales no rhonchi or wheezing Heart is regular. (Review of her rhythm shows sinus rhythm with PVCs and PACs) Abdomen is obese soft and nontender Legs with 2+ pitting edema no cyanosis Objective Last Vital Signs Temp 37.2 C 01/05/23 01:44 Pulse 70 01/05/23 07:40 Resp 24 01/05/23 05:10 BP 106/52 L 01/05/23 05:04 Pulse Ox 92 01/05/23 05:10 Laboratory Results - last 24 hr 01/04/23 01/04/23 01/04/23 18:48 18:48 19:20 WBC 8.46 RBC 4.54 Hgb 9.8 L Hct 35.6 L MCV 78 L MCH 21.6 L MCHC 27.5 L RDW 22.5 H Plt Count 342 MPV 8.7 Immature Gran % 0.6 Neutrophils % 73.6 Lymphocytes % 16.2 Monocytes % 7.8 Eosinophils % 1.3 Basophils % 0.5 Nucleated RBC % 0.2 Absolute Neutrophils 6.23 Absolute Lymphocytes 1.37 Absolute Monocytes 0.66 Absolute Eosinophils 0.11 Absolute Basophils 0.04 RBC Morphology See Below Hypochromasia 1+ Anisocytosis 1+ Microcytosis 1+ ABG Sample Site Left Brachial ABG pH 7.34 L ABG pCO2 50 H ABG pO2 21 L* ABG HCO3 27 H ABG Total CO2 26 ABG O2 Saturation 28 L ABG Base Excess 2 Oxygen Liter Flow 2 FiO2 VENOUS Sodium 139 Potassium 5.4 H Chloride 103 Carbon Dioxide 26.8 Anion Gap 9.2 BUN 44 H Creatinine 2.4 H Est GFR (CKD-EPI 2020) 20.42 Glucose 435 H Calcium 8.9 Magnesium 2.0 Total Bilirubin 0.4 AST 20 ALT 27 Alkaline Phosphatase 84 Troponin I < 50 NT-Pro-B Natriuret Pep Total Protein 7.7 Albumin 3.0 L 01/04/23 01/04/23 01/05/23 19:20 22:15 05:50 WBC RBC Hgb Hct MCV MCH MCHC RDW Plt Count MPV Immature Gran % Neutrophils % Lymphocytes % Monocytes % Eosinophils % Basophils % Nucleated RBC % Absolute Neutrophils Absolute Lymphocytes Absolute Monocytes Absolute Eosinophils Absolute Basophils RBC Morphology Hypochromasia Anisocytosis Microcytosis ABG Sample Site ABG pH ABG pCO2 ABG pO2 ABG HCO3 ABG Total CO2 ABG O2 Saturation ABG Base Excess Oxygen Liter Flow FiO2 Sodium 142 Potassium 4.3 D Chloride 104 Carbon Dioxide 27.2 Anion Gap 10.8 BUN 46 H Creatinine 2.0 H Est GFR (CKD-EPI 2020) 25.41 Glucose 127 H Calcium 9.0 Magnesium 2.0 Total Bilirubin AST ALT Alkaline Phosphatase Troponin I < 50 NT-Pro-B Natriuret Pep 2447 H Total Protein Albumin 01/05/23 05:50 WBC 8.69 RBC 4.35 Hgb 9.3 L Hct 33.7 L MCV 78 L MCH 21.4 L MCHC 27.6 L RDW 22.3 H Plt Count 312 MPV 8.5 Immature Gran % 0.5 Neutrophils % 68.9 Lymphocytes % 17.3 Monocytes % 10.6 Eosinophils % 2.1 Basophils % 0.6 Nucleated RBC % 0.0 Absolute Neutrophils 6.00 Absolute Lymphocytes 1.50 Absolute Monocytes 0.92 H Absolute Eosinophils 0.18 Absolute Basophils 0.05 RBC Morphology Hypochromasia Anisocytosis Microcytosis ABG Sample Site ABG pH ABG pCO2 ABG pO2 ABG HCO3 ABG Total CO2 ABG O2 Saturation ABG Base Excess Oxygen Liter Flow FiO2 Sodium Potassium Chloride Carbon Dioxide Anion Gap BUN Creatinine Est GFR (CKD-EPI 2020) Glucose Calcium Magnesium Total Bilirubin AST ALT Alkaline Phosphatase Troponin I NT-Pro-B Natriuret Pep Total Protein Albumin Time Spent with Patient Time Spent with Patient: 35-49 minutes Time was spent: preparing to see the patient(eg.review tests), obtaining and/or reviewing separately otained hiistory, ordering medications,tests, procedures, referring, communicating with other health neonatal intensive care nurse, indepentently interpreting results, counseling the patient and care coordination
[2023-01-05] MEDS: Pantoprazole 40 MG TABCR PO (08:33)
[2023-01-05] MEDS: Sucralfate 1 GM TAB PO ×4 (08:44→21:05)
[2023-01-05] MEDS: fentaNYL 100 MCG/2 ML VIAL (09:01)
[2023-01-05] MEDS: Amiodarone 150 MG/3 ML VIAL IVP (09:03)
[2023-01-05] MEDS: LORazepam 2 MG/ML VIAL (09:03)
[2023-01-05] MEDS: Metoprolol 5 MG/5 ML VIAL IVP (09:10)
--- NOTE | 2023-01-05 09:15 | RT.EKG_ITS ---
APPROVED REPORT Exam: Resting ECG Reason for Exam: Rhythm change Patient Location: I HR:110 bpm ECG Measurements Heart Rate 110 AXIS VA [id number] P [id number] QRSd 147 QRS -65 QT 424 T 97 QTc 574 Conclusion Atrial flutter with predominant 2:1 AV block...A-rate 211, multiple Ps Left bundle branch block...QRSd>120, broad/notched R
[2023-01-05] MEDS: Amiodarone in Dextrose 360 MG/200 ML BAG 33.333 MG IV (09:20)
--- NOTE | 2023-01-05 09:31 | CE_ITS ---
Date of service: 01/05/23 Time of Service: 09:31 Event Note: Patient was up in the chair having breakfast she had a choking spell went into ventricular tachycardia rate of 180 bpm became ashen blue short of breath but never lost her pulse or breathing or consciousness. 3 person lift back into bed and JOSH MELENDEZ was called. Patient was attached to defibrillator pads and patient was cardioverted with synchronized at 100 J x 2 which brought her out of the ventricular tachycardia into an atrial fibrillation rate in the 140s to 150s and gradually came down in the 120s. Patient was bolused with amiodarone 150 mg and started on amiodarone drip at 1 mg/min and was given Lopressor 5 mg IV. She was given fentanyl 100 mcg IV push and Ativan 2 mg IV push for sedation and pain control. Dr. Felicia Becerra, patient's primary congressional representative was notified of the event we discussed her care in detail it was agreed patient should be transferred to [facility] to EP cardiology. Initial call to the transfer center at [facility] indicated they had no bed availability however when we pushed for a telephone consultation with her EP congressional representative and insisted on transfer they relented after they reviewed her chart and realized that she had just been DCC cardioverted yesterday at [facility]. Currently I am awaiting callback from the [facility] rn cardiology on-call. I am also waiting a callback from EP congressional representative Dr. Aguilar. Patient's Bahman has been updated regarding the events of this morning and plans for transfer. Patient is groggy from medications but arousable and feeling better. Heart rate is down in the 110s atrial fibrillation blood pressure is stable. Time Spent with Patient Time spent in critical care(minutes): 40 Time Spent Included: Coordination of care, Documenting critically ill care, Time at immediate bedside, Discussing critically ill care with other medical staff and Discussing Hx and/or treatment with family
[2023-01-05] MEDS: Normal Saline Flush 10 ML SYR IVP (09:54)
[2023-01-05] MEDS: Normal Saline Flush 10 ML SYR (09:54)
[2023-01-05] MEDS: Apixaban 5 MG TAB PO ×2 (09:57→20:05)
[2023-01-05] MEDS: Magnesium Chloride 64 MG TABCR PO ×2 (09:57→20:05)
[2023-01-05] MEDS: Cholecalciferol (Vitamin D3) 1,000 UNIT TAB 1000 UNITS PO (09:57)
[2023-01-05] MEDS: Allopurinol 100 MG TAB PO (09:57)
[2023-01-05] MEDS: Cyanocobalamin 500 MCG TAB 1000 MCG PO (09:57)
[2023-01-05 09:59] LABS: Magnesium 2.1 mg/dL (1.8-2.4)
[2023-01-05] MEDS: metOLazone 2.5 MG TAB 5 MG PO (10:00)
[2023-01-05] MEDS: Metoprolol CR 100 MG TABCR 200 MG PO (10:13)
[2023-01-05 10:29] LABS: Anion Gap 13.9 mmol/L (3-11); BUN 46 mg/dL (7-18); CO2 26.1 mmol/L (21.0-32.0); CREATININE 2.1 mg/dL (0.55-1.02); Calcium 9.4 mg/dL (8.5-10.1); Chloride 103 mmol/L (98-107); Estimated GFR 23.97 (mL/min/1.73m2); Glucose 151 mg/dL (74-106); Sodium 143 mmol/L (136-145); Troponin I < 50 ng/L (<or=60)
--- NOTE | 2023-01-05 10:30 | DI.RAD_ITS ---
Exam(s) XR PORTABLE CHEST AP EXAM: XR PORTABLE CHEST AP CLINICAL HISTORY: dyspnea, CHF TECHNIQUE: 2D digital imaging was performed. COMPARISON: CR,XR XR PORTABLE CHEST AP from 01/04/2023 FINDINGS: Exam is limited by under penetration and mild respiratory motion. Leads overlie the chest. Costophr enic angles not well penetrated. LUNGS: Roughly stable bilateral infiltrates consistent with pulmonary edema. No pleural abnormality seen. HEART: Enlarged, stable in size. AORTA: Normal diameter. BONES: Unremarkable for age. Soft tissues: Unremarkable. IMPRESSION: Stable appearance of cardiomegaly and CHF. DATA REPOSITORY: RADIATION DOSE DELIVERED:
[2023-01-05] MEDS: dilTIAZem 30 MG TAB PO ×3 (10:58→20:05)
[2023-01-05] MEDS: Insulin Aspart 300 UNITS/3 ML PEN SC ×2 (13:18→21:10)
--- NOTE | 2023-01-05 13:25 | TELEP.MEDR_ITS ---
Date of service: 01/05/23 Time of Service: 13:25 Telepharmacy Home Med Rec Allergies Allergies: ceftriaxone Allergy (Intermediate, Verified 12/21/22 10:11) Hives aspirin Allergy (Verified 12/21/22 10:11) Hives Penicillins Allergy (Verified 12/21/22 10:11) tetracycline Allergy (Verified 12/21/22 10:11) adhesive Adverse Reaction (Intermediate, Verified 12/21/22 10:11) Topical Irritation Interview Person Interviewed: * Patient Quality Quality of Interview/Accuracy of Medication List: Good Sources Sources used to compile medication list: [facility] Medication List, Patient List and SureScripts Changes made to Home Medication List: ADDITIONS: * Spironolactone 12.5mg PO daily * Docusate 100mg PO daily DELETIONS: * Albuterol MDI * Amiodarone * Pantoprazole CHANGES: * Metolazone 5mg PO weekly (on Mondays) * Metoprolol succinate 200mg PO daily Additional Notes Additional Notes: * Amiodarone- patient reports this was stopped by her provider just about a week ago because it was ineffective * Torsemide- per retail pharmacy records, it appears the dose should be 60mg daily (20mg x3 tabs). However, patient reports she can only tolerate 40mg daily Recommended Changes Recommended Changes(reason for recommendation): * None Attestation: The home medication list is now updated to the best of my knowledge and is ready to be reconciled by the provider. Please contact the TelePharmacy Medication Reconciliation Pharmacist at for any questions.
--- NOTE | 2023-01-05 13:25 | TELEP.MEDREC ---
Date of service: 01/05/23 Time of Service: 13:25 Telepharmacy Home Med Rec Allergies Allergies: ceftriaxone Allergy (Intermediate, Verified 12/21/22 10:11) Hives aspirin Allergy (Verified 12/21/22 10:11) Hives Penicillins Allergy (Verified 12/21/22 10:11) tetracycline Allergy (Verified 12/21/22 10:11) adhesive Adverse Reaction (Intermediate, Verified 12/21/22 10:11) Topical Irritation Interview Person Interviewed: Patient Quality Quality of Interview/Accuracy of Medication List: Good Sources Sources used to compile medication list: [employer] Medication List, Patient List and SureScripts Changes made to Home Medication List: ADDITIONS: Spironolactone 12.5mg PO daily Docusate 100mg PO daily DELETIONS: Albuterol MDI Amiodarone Pantoprazole CHANGES: Metolazone 5mg PO weekly (on Mondays) Metoprolol succinate 200mg PO daily Additional Notes Additional Notes: Amiodarone- patient reports this was stopped by her provider just about a week ago because it was ineffective Torsemide- per retail pharmacy records, it appears the dose should be 60mg daily (20mg x3 tabs). However, patient reports she can only tolerate 40mg daily Recommended Changes Recommended Changes(reason for recommendation): None Attestation: The home medication list is now updated to the best of my knowledge and is ready to be reconciled by the provider. Please contact the TelePharmacy Medication Reconciliation Pharmacist at for any questions.
--- NOTE | 2023-01-05 16:07 | PT.INNT ---
Date of service: 01/05/23 Time of Service: 11:30 PT Notes Visit Reasons: Acute on chronic R-sided CHF Patient with cardiac event this morning that necessitated a code blue. Will hold off on evalaution until tomorrow morning.
[2023-01-05] MEDS: Ferrous Gluconate 324 MG TAB PO (20:05)
[2023-01-05] MEDS: Ascorbic Acid 500 MG TAB PO (20:05)
[2023-01-05] MEDS: Simvastatin 10 MG TAB PO (20:05)
[2023-01-06] VITALS (40 sets, daily range): BP systolic 86–123; BP diastolic 42–81; PULSE 67–120; RESP 16–28; TEMP 36.5–37.3; O2SAT 88–96
[2023-01-06 06:27] LABS: Abs Immature Grans 0.03 10^3/uL (0.0-0.06); Absolute Basophil Count 0.03 10^3/uL (0.0-0.2); Absolute Eosinophil Count 0.28 10^3/uL (0.0-0.7); Absolute Lymphocyte Count 1.09 10^3/uL (1.2-3.4); Absolute Monocyte Count 0.88 10^3/uL (0.1-0.8); Absolute Neutrophil Count 5.88 10^3/uL (1.2-6.7); Basophils % 0.4; Eosinophils % 3.4; HGB 9.8 g/dL (11.2-15.7); Immature Grans % 0.4; Lymphocytes % 13.3; MCH 22.6 pg (27.0-33.0); MCHC 29.7 % (32.0-36.0); MCV 76 fL (80-95); MPV 8.8 fL (8.0-11.0); Monocytes % 10.7; Neutrophils % 71.8; Platelet Count 301 10^3/uL (130-400); RBC 4.33 10^6/uL (3.93-5.22); RDW 21.7 % (11.7-14.6); WBC 8.19 10^3/uL (4.4-10.8)
[2023-01-06 06:35] LABS: Diff Comment RBC Morph Reviewed
[2023-01-06] MEDS: Sucralfate 1 GM TAB PO ×4 (06:36→21:14)
[2023-01-06] MEDS: Levothyroxine 75 MCG TAB 37.5 MCG PO (06:37)
[2023-01-06 06:39] LABS: Anion Gap 9.1 mmol/L (3-11); Anisocytosis 2+; BUN 42 mg/dL (7-18); CO2 31.9 mmol/L (21.0-32.0); CREATININE 1.8 mg/dL (0.55-1.02); Calcium 9.2 mg/dL (8.5-10.1); Chloride 98 mmol/L (98-107); Estimated GFR 28.84 (mL/min/1.73m2); Glucose 120 mg/dL (74-106); Magnesium 1.9 mg/dL (1.8-2.4); Polychromasia Present; Sodium 139 mmol/L (136-145)
[2023-01-06 06:41] LABS: Potassium 2.9 mmol/L (3.5-5.1)
[2023-01-06] MEDS: POTASSIUM CHLORIDE 20 MEQ/100 ML BAG 50 MEQ IVPB (08:31)
[2023-01-06] MEDS: dilTIAZem 30 MG TAB PO ×2 (08:32→13:47)
[2023-01-06] MEDS: Spironolactone 25 MG TAB PO (08:32)
[2023-01-06] MEDS: Cholecalciferol (Vitamin D3) 1,000 UNIT TAB 1000 UNITS PO (08:32)
[2023-01-06] MEDS: Metoprolol CR 100 MG TABCR 200 MG PO (08:32)
[2023-01-06] MEDS: Allopurinol 100 MG TAB PO (08:32)
[2023-01-06] MEDS: Cyanocobalamin 500 MCG TAB 1000 MCG PO (08:32)
[2023-01-06] MEDS: Potassium Chloride 10 MEQ CAPCR 20 MEQ PO ×3 (08:32→19:27)
[2023-01-06] MEDS: Ascorbic Acid 500 MG TAB PO ×2 (08:32→19:27)
[2023-01-06] MEDS: Pantoprazole 40 MG TABCR PO (08:32)
[2023-01-06] MEDS: Magnesium Chloride 64 MG TABCR PO ×2 (08:33→19:26)
[2023-01-06] MEDS: Ferrous Gluconate 324 MG TAB PO ×2 (08:33→19:26)
[2023-01-06] MEDS: Apixaban 5 MG TAB PO ×2 (08:33→19:27)
[2023-01-06] MEDS: Insulin Aspart 300 UNITS/3 ML PEN SC ×4 (08:34→21:11)
--- NOTE | 2023-01-06 09:31 | PGE_ITS ---
Date of Service Date of service: 01/06/23 Time of Service: 09:31 Assessment and Plan Assessment and plan (1) Acute on chronic right-sided congestive heart failure: Status: Acute Assessment and plan: patient has severe pulmonary HTN per her right heart cath from 11/29/22 (PA 70/28, PCWP 22; RVSP 65); patient followed by Dr. Sheehan in the pulmonary hypertension clinic [place] [facility] and is deemed not to be candidate for pulmonary vasodilators d/t PVR of 6 w/ combined pre and post capillary PHTN and concern for V/Q mismatch. Patient's symptoms much improved since going on lasix drip and diuresing over 4 liters. I will switch her back to oral diuretics (combo spironolactone and torsemide). continue rate control w/ combo of diltiazem and toprol XL (will change short acting diltiazem 30 mg tid to diltiazem CD 120 mg, but will spread out so she takes her Toprol XL in the morning and her cardizem at night). continue Eliquis for anticoagulation. Refer back to Dr. 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 Patient needs further potassium supplementation to correct hypokalemia. Patient no longer needs ICU care and will be transferred to med/surg Professional time spent interviewing and examining patient, discussion of goals of care with hospital team (care management, nursing and consulting professionals) was 30 minutes. (2) Atrial fibrillation: Status: Chronic Assessment and plan: no further runs of rapid afib. Yesterday's WCT was deemed in retrospect review of her rhythm strips and her post DCC EKG to have been rapid afib w/ aberrancy. Continue Toprol XL 200 mg daily and change dilitazem to CD form. continue Eliquis. Qualifiers: Atrial fibrillation type: longstanding persistent Qualified Code(s): I48.11 - Longstanding persistent atrial fibrillation (3) Essential hypertension: Status: Chronic Assessment and plan: as above w/ combo diltiazem and toprol XL along w/ spironolactone and torsemide. (4) Hyperlipidemia: Status: Acute Assessment and plan: Continue simvastatin (5) Obstructive sleep apnea syndrome: Status: Chronic Assessment and plan: Normally on CPAP. Will continue this. However patient did require BiPAP last night for acute pulmonary edema. (6) DVT prophylaxis: Status: Acute Assessment and plan: ON therapeutic apixaban (7) Discharge planning issues: Status: Resolved Assessment and plan: DNR/DNI C/s PT. Subjective Subjective Interval history since last seen: Patient is feeling better. Dyspnea has improved. She has diuresed over 4 liters. I told her that I had spoken yesterday w/ her EP quality assurance test program manager, Dr. Frank Aguilar as well as w/ Dr. Becerra. I told her that the plan is to continue diuresis, and for improved afib rate control then she will follow up w/ Dr. Aguilar in the next 1 to 2 weeks for AVJ ablation and pacemaker placement. Exam Narrative Exam Narrative: Maliha is sitting up in the chair, ate breakfast well, no coughing or choking Lungs: bibasilar rales, no wheezing or rhonchi Heart: irregularly irregular; rhythm remains afib but rate controlled Legs: edema is markedly improved, just trace edema now Objective Last Vital Signs Temp 36.5 C 01/06/23 08:00 Pulse 93 H 01/06/23 09:02 Resp 28 H 01/06/23 09:02 BP 89/52 L 01/06/23 09:02 Pulse Ox 92 01/06/23 08:00 Laboratory Results - last 24 hr 01/05/23 01/05/23 01/06/23 09:40 09:40 05:50 WBC RBC Hgb Hct MCV MCH MCHC RDW Plt Count MPV Immature Gran % Neutrophils % Lymphocytes % Monocytes % Eosinophils % Basophils % Nucleated RBC % Absolute Neutrophils Absolute Lymphocytes Absolute Monocytes Absolute Eosinophils Absolute Basophils RBC Morphology Polychromasia Anisocytosis Sodium 143 139 Potassium 4.0 2.9 L D Chloride 103 98 Carbon Dioxide 26.1 31.9 Anion Gap 13.9 H 9.1 BUN 46 H 42 H Creatinine 2.1 H 1.8 H Est GFR (CKD-EPI 2020) 23.97 28.84 Glucose 151 H 120 H Calcium 9.4 9.2 Magnesium 2.1 1.9 Troponin I < 50 01/06/23 05:50 WBC 8.19 RBC 4.33 Hgb 9.8 L Hct 33.0 L MCV 76 L MCH 22.6 L MCHC 29.7 L D RDW 21.7 H Plt Count 301 MPV 8.8 Immature Gran % 0.4 Neutrophils % 71.8 Lymphocytes % 13.3 Monocytes % 10.7 Eosinophils % 3.4 Basophils % 0.4 Nucleated RBC % 0.0 Absolute Neutrophils 5.88 Absolute Lymphocytes 1.09 L Absolute Monocytes 0.88 H Absolute Eosinophils 0.28 Absolute Basophils 0.03 RBC Morphology See Below Polychromasia Present Anisocytosis 2+ Sodium Potassium Chloride Carbon Dioxide Anion Gap BUN Creatinine Est GFR (CKD-EPI 2020) Glucose Calcium Magnesium Troponin I Time Spent with Patient Time Spent with Patient: 25-34 minutes Time was spent: preparing to see the patient(eg.review tests), ordering medications,tests, procedures, indepentently interpreting results, counseling the patient and care coordination
--- NOTE | 2023-01-06 09:31 | PDOC.CMPRO ---
Date of service: 01/06/23 Time of Service: 09:31 Care Management Progress Note Progress Note Text Progress Note Text: S/O:Maliha was sitting up in a chair when CM met with her. She informed CM that she is feeling much better than yesterday, when she required cardioversion. Today her heart rate has been controlled, with rates between 80 and 100. She will likely be discharged home soon and follow up with EP Cardiology at [facility] next [place]. Maliha continues to deny the need for any services at home. She expplained that her is wonderful and will help her with whatever she needs. A: Maliha is a 77 year old woman admitted onn 01/04/23 with CHF P:Anticipate Maliha will discharge home with no new services when medically cleared. She will follow up with her community providers and plan of care and transport with family. CM will follow and assess for discharge planning concerns.
--- NOTE | 2023-01-06 11:13 | PT.INIE ---
Date of service: 01/06/23 Time of Service: 10:37 PT Notes Visit Reasons: Acute on chronic R-sided CHF Physical Therapy Inpatient Initial Evaluation Date: 01/06/2023 Referring Doctor:? Lori Yuan MD PT Orders: PT CONSULT: Limited ability Precautions: Fall. Standard. Activity as tolerated.? On 02.0 L of oxygen per minute via NC. Patient Profile/Admitting Diagnosis:? Maliha is a 77-year-old female who presented to the ED on 01/04/2022 due to worsening shortness of breath.? Patient is diagnosed with acute on chronic right-sided CHF, atrial fibrillation, essential hypertension, hyperlipidemia lipidemia, and LAI. PMHX: All Active Problems?(Updated 01/05/23 @ 01:12 by Regan Georges DO) CHF exacerbation (Acute) Acute respiratory distress (Acute) DVT prophylaxis (Acute) Acute on chronic right-sided congestive heart failure (Acute) Obesity, morbid (Chronic) a. BMI of 52Atrial fibrillation (Chronic 06/23/12) 02/19 start Tikosyn 06/21 and 11/20 recurrent 2012 ablation at [facility] echo 2012 at [facility], normal LVEF and valves 05/2021 RVR, s/p RODRIGUEZ CV and change to amiodarone. Essential hypertension (Chronic 08/13/13) Hyperlipidemia (Acute) Hypothyroidism (Chronic 12/06/14) Obstructive sleep apnea syndrome (Chronic 09/26/12) DX SEP 2012 AT [facility]; wears CPAP machine. Gout (Chronic) intermittent, diet based.CHF (congestive heart failure) (Chronic) On amiodarone therapy (Acute) Mitral stenosis with regurgitation (Chronic) Malignant hypertensive heart and CKD (chronic kidney disease) stage IV (Acute) Iron deficiency anemia due to chronic blood loss (Acute) Type 2 diabetes mellitus without complication, with long-term current use of insulin (Acute) CKD (chronic kidney disease) stage 4, GFR 15-29 ml/min (Acute) Hypokalemia (Acute) Medical History? Asthma Bilateral bunions Colon polyp (07/10/18) 12/19 tubular adenoma Diabetic neuropathy Diverticulosis Former smoker (08/16/14) 5 pack yr history Gastroesophageal reflux disease GI bleed had melena transiently in 02/2021; unable to be evaluated due to AV stenosis.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 tachycardia metal ceiling hanger current use of antiarrhythmic medical therapy (08/21/13) Osteoarthritis Peptic ulcer disease with hemorrhage hx x 3 Pre-ulcerative corn or callous Restless legs (01/18/13) sleep study low iron (not anemic) Severe aortic stenosis Surgical History? History of esophagogastroduodenoscopy (EGD) (~05/2018) 07/10/18 History of open sigmoidectomy S/P colonoscopy (~07/10/18) Status post abdominal hysterectomy Status post appendectomy Status post total bilateral knee replacement Status post transcatheter aortic valve replacement (TAVR) using bioprosthesis (~04/2021) Complicated by extravasation of contrast on iliofemoral angiography.? 2 covered stents placed in the artery EIA extending into the R COUNCILMAN Social History/Home Situation: Lives with in a private home with no steps to enter through the garage.? Bedroom is on the second floor of the house with a flight of steps and a rail on one side. ?Loves to play cribbage. Equipment Owned/DME: FWW, [facility] Subjective: Agreeable to consult.? Mild shortness of breath but no report of chest pain with ambulation of about 120 feet + 120 feet. Needed 1 seated long rest to re-stabilize HR and oxygen saturation fluctuation. Denies lightheadedness and headache. Repored persistent hamstring strain (now much better) that acted up with today's stair climbing. Objective: General Observation: Seated on chair.? Telemetry monitoring in place.? High BMI.? On oxygen supplementation of 2 L/min via NC. Mental Status: Alert and oriented as to person, place, time, and purpose. Able to pay attention, focus, and respond appropriately. Pain: 1/10 in left side of chest Vital Signs: HR variation of 96-high 120s with rest and with activity; oxygen saturation fluctuation of 86% through 96% on 2 L via NC ROM: Right Upper Extremity: ? Shoulder Flexion WFL. Shoulder abduction WFL. Elbow flexion WFL. Wrist flexion WFL. Functional opening and closing of hand WFL. Left Upper Extremity:? Shoulder Flexion WFL. Shoulder abduction WFL. Elbow flexion WFL. Wrist flexion WFL. Functional opening and closing of hand WFL. Right Lower Extremity: Hip flexion WFL. Hip abduction WFL. Knee flexion WFL. Ankle dorsiflexion WFL. Ankle plantarflexion WFL. Left Lower Extremity: Hip flexion WFL. Hip abduction WFL. Knee flexion WFL. Ankle dorsiflexion WFL. Ankle plantarflexion WFL. Strength: Right Upper Extremity: Shoulder flexors 4-/5. Shoulder abductors 4-/5. Elbow flexors 4-/5. Elbow extensors 4-/5. Chicken Cutter strong. Left Upper Extremity: Shoulder flexors 4-/5. Shoulder abductors 4-/5. Elbow flexors 4-/5. Elbow extensors 4-/5. Chicken Cutter strong. Right Lower Extremity: Hip flexors 4-/5. Hip abductors 4-/5. Knee flexors 4-/5. Knee extensors 4-/5. Ankle dorsiflexors 4-/5. Ankle plantarflexors 4-/5. Left Lower Extremity: Hip flexors 4-/5. Hip abductors 4-/5. Knee flexors 4-/5. Knee extensors 4-/5. Ankle dorsiflexors 4-/5. Ankle plantarflexors 4-/5. Bed Mobility/Transfers: Sit to stand with standby assist, needed to use both hands for support to minimize too much strain for patient Stand to sit with standby assist, needed to use both hands for support to minimize too much strain for patient Bed to reclining chair with standby assist with FWW Reclining chair to bed with standby assist with FWW Gait: Instructed patient with level surface ambulation of 120 feet +120 feet requiring standby assist with front-wheeled walker. Cintia decreased. Step height decreased. Step length decreased.? Verbalized feeling more steady with a walker use. Stairs: Ascended and descended 6 x 4 inch steps and 4 x 6 inch steps while holding onto bilateral rails with step to gait pattern, cues given to pace self to minimize vital signs variation. Reported left previous charley horse on the left hamstring acting up, resolved with rest. Balance: Static Sitting: Normal Dynamic Sitting: Normal Static Standing: Fair Dynamic Standing:? Fair Special Tests: Mobility Limitations Standardized Measure [facility] 6 clicks Basic Mobility Inpatient Short Form: Raw Score: 23? CMS Score: 11% deficit? ? ? Informed Consent/Education:? Patient was instructed in purpose of PT consult and plan of care. Agreeable to proceed with established PT POC to achieve personal goals. Assessment: Patient presents with clinical signs and symptoms consistent with current/admitting diagnoses that have resulted to mobility limitations, gait instability, generalized weakness, and overall ADL decline as demonstrated by the following impairment level findings: 1.? Decreased strength to B UE/LE major muscle groups 2.? Impaired standing balance 3.? Impaired activity tolerance 4.? Shortness of breath 5.? Fatigue Impairments are contributing to the following functional limitations: 1.? Difficulty with ambulation without assistive device 2.? Increased completion time for mobility ADL performance 3.? Increased risk for falls 4.? Difficulty with managing steps alone safely Patient is assessed as a 89335 moderate complexity based on the following: History: 76-year-old female with past medical history as indicated above Examination: Demonstrable impairment in strength, balance, and mobility level with underlying impairments and functional limitations as exhibited above as well as deficit score of 0% utilizing the [facility] Mobility Inpatient Short Form Presentation: Evolving Decision Makin moderate complexity Goals: Goals X1 week 1. Supine-Sit independent 2. Sit-Supine independent 3. Sit-Stand independent 4. Stand-Sit independent with FWW 5. Bed-Chair independent with FWW 6. Chair-Bed independent with FWW 7. Independent gait on level surface with use of FWW for at least 300 feet without report of pain nor dyspnea 8. Independent stair negotiation while holding onto one rail for at least 15 steps without report of pain nor dyspnea 9. Independent with home exercise program 10. Good static and dynamic standing balance/tolerance Plan of Care/Treatment Plan: 1x/day, 7 days/week x 1 week. Plan of care has been reviewed with the FLOORING INSTALLER providing the service under Physical Therapy direction. Initiate Physical Therapy intervention for pain management as needed, strengthening, bed mobility, transfers, gait, stairs, balance training, and use of assistive device. DISCHARGE RECOMMENDATIONS: [] ? Home with no services? [X] ? Home with services. Patient will benefit from home health PT services in order to progress mobility level using least restrictive assistive ambulatory device, assess home safety, identify additional equipment needs, and establish a functional maintenance program that will increase ability of patient to remain at home. [] ? Home with outpatient PT [] [] ? SNF for continued rehabilitation [] [] ? Systems Protection Technician Care [] [] ? SNF versus LTC based on ability to participate and progress [] TREATMENT CODE/TIME: 22976 x 20 minutes,? 08161 x 13 minutes beginning at 10:37 AM. Thank you for the opportunity to participate in the care of this patient. Antonia Ramirez PT, DPT, CLT [facility] [place], [place]
[2023-01-06] MEDS: Torsemide 20 MG TAB 40 MG PO (12:41)
[2023-01-06 13:25] LABS: Potassium 3.2 mmol/L (3.5-5.1)
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
[2023-01-06] MEDS: Simvastatin 10 MG TAB PO (19:26)
[2023-01-06] MEDS: Potassium Chloride 10 MEQ CAPCR 40 MEQ PO (19:26)
[2023-01-06] MEDS: Insulin Glargine 300 UNITS/3 ML PEN 15 UNITS SC (21:11)
[2023-01-06] MEDS: dilTIAZem CD 120 MG CAPCR PO (21:14)
[2023-01-07] VITALS (11 sets, daily range): BP systolic 91–121; BP diastolic 53–73; PULSE 71–111; RESP 14–21; TEMP 35.8–36.8; O2SAT 89–99
[2023-01-07] MEDS: Levothyroxine 75 MCG TAB 37.5 MCG PO (05:20)
[2023-01-07 07:12] LABS: Anion Gap 12.3 mmol/L (3-11); BUN 52 mg/dL (7-18); CO2 28.7 mmol/L (21.0-32.0); CREATININE 2.3 mg/dL (0.55-1.02); Calcium 9.7 mg/dL (8.5-10.1); Chloride 97 mmol/L (98-107); Estimated GFR 21.49 (mL/min/1.73m2); Glucose 133 mg/dL (74-106); Potassium 3.6 mmol/L (3.5-5.1); Sodium 138 mmol/L (136-145)
[2023-01-07] MEDS: Cholecalciferol (Vitamin D3) 1,000 UNIT TAB 1000 UNITS PO (07:53)
[2023-01-07] MEDS: Magnesium Chloride 64 MG TABCR PO ×2 (07:54→20:09)
[2023-01-07] MEDS: Sucralfate 1 GM TAB PO ×4 (07:54→20:08)
[2023-01-07] MEDS: Metoprolol CR 100 MG TABCR 200 MG PO (07:54)
[2023-01-07] MEDS: Spironolactone 25 MG TAB PO (07:55)
[2023-01-07] MEDS: Ascorbic Acid 500 MG TAB PO ×2 (07:55→20:09)
[2023-01-07] MEDS: Torsemide 20 MG TAB 40 MG PO (07:55)
[2023-01-07] MEDS: Cyanocobalamin 500 MCG TAB 1000 MCG PO (07:55)
[2023-01-07] MEDS: Potassium Chloride 10 MEQ CAPCR 20 MEQ PO ×3 (07:55→20:08)
[2023-01-07] MEDS: Ferrous Gluconate 324 MG TAB PO ×2 (07:55→20:10)
[2023-01-07] MEDS: Allopurinol 100 MG TAB PO (07:55)
[2023-01-07] MEDS: Apixaban 5 MG TAB PO ×2 (07:57→20:08)
[2023-01-07] MEDS: Pantoprazole 40 MG TABCR PO (07:57)
[2023-01-07] MEDS: Insulin Aspart 300 UNITS/3 ML PEN SC ×4 (08:55→20:56)
--- NOTE | 2023-01-07 12:18 | CMPROGNOTE_ITS ---
Date of service: 01/07/23 Time of Service: 15:34 Care Management Progress Note Progress Note Text Progress Note Text: S/O:Maliha was sitting up in a chair when CM met with her. She informed CM that she continues to improve. An exercise oximetry test is planned to determine if she needs home oxygen. She has been using nasal oxygen and saturating in the 90s.On occasion she has been on room air and has still maintained her oxygen in the high 80s to low 90s. A followup appointment has been made by CM with from EP cardiology at [facility]. The appointment will be on 01/12/23 at 2:30 in the [facility]. A: Maliha is a 77 year old woman admitted onn 01/04/23 with CHF P:Anticipate Maliha will discharge home with no new services when medically cleared. She will follow up with her community providers and plan of care and transport with family. CM will follow and assess for discharge planning concerns.
--- NOTE | 2023-01-07 14:16 | PT.INTREAT ---
PT Notes Visit Reasons: Acute on chronic R-sided CHF Inpatient Physical Therapy Treatment Note [facility] Date: 01/07/23 PRECAUTIONS: Activity as tolerated. Fall risk. Standard. SUBJECTIVE: Pleasant and cooperative. Feels much better. Not as out of breath today as she was yesterday. OBJECTIVE:? Remains on telemetry ? PAIN: Denies ? BED MOBILITY/TRANSFERS? Sit-stand: independent ? Stand-sit: independent ? Bed-Chair: independent? Chair-bed: independent ? GAIT? Assistive Device: front-wheeled walker ? Weight bearing: FWB Assist: Supervision? Distance:? 150 feet? Deviation: Gait speed decreased ? VITALS:? HR ranged from 96 bpm through high 120s bpm ASSESSMENT:? Much improved activity tolerance and HR response to ambulation. No longer requiring oxygen during activity. PLAN: Progress mobility level as tolerated without HR aberration nor dyspnea. D/C to home with PT. TREATMENT CODE/TIME: 94588 x 12 minutes beginning at 11:50 AM.
--- NOTE | 2023-01-07 16:32 | PT.INTREAT ---
Date of service: 01/07/23 Time of Service: 16:00 PT Notes Visit Reasons: Acute on chronic R-sided CHF Inpatient Physical Therapy Treatment Note [facility] Date: 01/07/23 PRECAUTIONS: Fall, standard, activity as tolerated SUBJECTIVE: Patient wants to go home. Sitting up in chair, agreeable to therapy. OBJECTIVE: PAIN: none reported BED MOBILITY/TRANSFERS Sit-stand: independent Stand-sit: independent Bed-Chair: independent Chair-bed: independent GAIT Assistive Device: front wheeled walker Weight bearing: full Assist: independent Distance: 150 feet Deviation: Reduced step height, reduced step length, reduced archie, forward leaning posture. VITALS: SaO2 93, 94% on room air. Hr mid 130s with ambulation, returned to mid 110s within a minute or two of resting. Monitored by respiratory therapy. ASSESSMENT: Patient tolerates therapy well, is aware of her limitations PLAN: Continue strengthening, increasing activity tolerance per plan of care. TREATMENT CODE/TIME: 74051 Gait 25 minutes beginning at 1600.
[2023-01-07] MEDS: Simvastatin 10 MG TAB PO (20:09)
[2023-01-07] MEDS: dilTIAZem CD 120 MG CAPCR PO (20:56)
[2023-01-07] MEDS: Insulin Glargine 300 UNITS/3 ML PEN 15 UNITS SC (20:56)
--- NOTE | 2023-01-07 21:20 | PGE_ITS ---
Date of Service Date of service: 01/07/23 Time of Service: 19:00 Assessment and Plan Assessment and plan (1) Acute on chronic right-sided congestive heart failure: Status: Acute Assessment and plan: Off of oxygen and improving. Rate control imperative. Continue torsemide + aldactone. Consider addition of metolazone. Has severe pulmonary hypertension and is not a candidate for pulmonary vasodilators. (2) Atrial fibrillation: Status: Chronic Assessment and plan: Continue rate control with diltiazem 120 mg PO daily and metoprolol xl 200 mg PO daily. Will likely need an ablation at [facility] as outpatient. Qualifiers: Atrial fibrillation type: longstanding persistent Qualified Code(s): I48.11 - Longstanding persistent atrial fibrillation (3) Essential hypertension: Status: Chronic Assessment and plan: BP is tolerating above therapy. Continue to monitor. (4) Hyperlipidemia: Status: Acute Assessment and plan: Continue simvastatin (5) Obstructive sleep apnea syndrome: Status: Chronic Assessment and plan: Continue CPAP. (6) DVT prophylaxis: Status: Acute Assessment and plan: Continue therapeutic apixaban (7) Discharge planning issues: Status: Resolved Assessment and plan: DNR/DNI Anticipate discharge home tomorrow. Subjective Subjective Interval history since last seen: Got off of oxygen this afternoon/early evening. Denies dizziness, CP, SOB, n/v. Feels a lot better. Exam Narrative Exam Narrative: General: A&Ox3, NAD HEENT: EOMI, MMM Cardiovascular: irregularly irregular rhythm, no m/r/g Lungs: CTAB Gastrointestinal: soft, nontender, nondistended Extremities: trace edema BLEs, 1+ pedal pulses B, no c/c. Objective Last Vital Signs Temp 36.8 C 01/07/23 19:30 Pulse 97 H 01/07/23 19:30 Resp 14 01/07/23 19:30 BP 121/64 01/07/23 19:30 Pulse Ox 91 L 01/07/23 19:30 Laboratory Results - last 24 hr 01/07/23 01/07/23 06:45 06:45 Sodium 138 Potassium 3.6 Chloride 97 L Carbon Dioxide 28.7 Anion Gap 12.3 H BUN 52 H Creatinine 2.3 H Est GFR (CKD-EPI 2020) 21.49 Glucose 133 H Calcium 9.7 Magnesium 2.0 Time Spent with Patient Time Spent with Patient: 25-34 minutes Time was spent: preparing to see the patient(eg.review tests), obtaining and/or reviewing separately otained hiistory, ordering medications,tests, procedures, referring, communicating with other health healthcare business analyst, indepentently interpreting results, counseling the patient and care coordination
[2023-01-08 02:30] VITALS: BP 107/69; PULSE 78; RESP 14; TEMP 36.2; O2SAT 95
[2023-01-08 05:40] VITALS: BP 116/67; PULSE 74; RESP 14; TEMP 36.4; O2SAT 93
[2023-01-08] MEDS: Levothyroxine 75 MCG TAB 37.5 MCG PO (05:53)
[2023-01-08 07:05] VITALS: PULSE 87
[2023-01-08 07:08] LABS: Anion Gap 11.4 mmol/L (3-11); BUN 62 mg/dL (7-18); CO2 28.6 mmol/L (21.0-32.0); CREATININE 2.3 mg/dL (0.55-1.02); Calcium 9.7 mg/dL (8.5-10.1); Chloride 98 mmol/L (98-107); Estimated GFR 21.49 (mL/min/1.73m2); Glucose 127 mg/dL (74-106); Magnesium 2.1 mg/dL (1.8-2.4); Potassium 3.5 mmol/L (3.5-5.1); Sodium 138 mmol/L (136-145)
[2023-01-08 08:00] VITALS: BP 116/67; PULSE 74; RESP 18; O2SAT 93
[2023-01-08] MEDS: Metoprolol CR 100 MG TABCR 200 MG PO (08:57)
[2023-01-08] MEDS: Magnesium Chloride 64 MG TABCR PO (08:57)
[2023-01-08] MEDS: Spironolactone 25 MG TAB PO (08:57)
[2023-01-08] MEDS: Cholecalciferol (Vitamin D3) 1,000 UNIT TAB 1000 UNITS PO (08:57)
[2023-01-08] MEDS: Ascorbic Acid 500 MG TAB PO (08:57)
[2023-01-08] MEDS: Apixaban 5 MG TAB PO (08:57)
[2023-01-08] MEDS: Cyanocobalamin 500 MCG TAB 1000 MCG PO (08:58)
[2023-01-08] MEDS: Ferrous Gluconate 324 MG TAB PO (08:58)
[2023-01-08] MEDS: Sucralfate 1 GM TAB PO ×2 (08:58→12:09)
[2023-01-08] MEDS: Torsemide 20 MG TAB 40 MG PO (08:58)
[2023-01-08] MEDS: Potassium Chloride 10 MEQ CAPCR 20 MEQ PO (08:58)
[2023-01-08] MEDS: Pantoprazole 40 MG TABCR PO (08:58)
[2023-01-08] MEDS: Allopurinol 100 MG TAB PO (08:58)
--- NOTE | 2023-01-08 09:08 | PT.INTREAT ---
PT Notes Visit Reasons: Acute on chronic R-sided CHF Inpatient Physical Therapy Treatment Note [facility] Date: 01/08/23 SUBJECTIVE: Pt reports doing well today. OBJECTIVE: Sit-stand:I Stand-sit: I GAIT Assistive Device: FWW Weight bearing: SBA Distance: * 150ft THEREX: Seated rowing x 10, LAQ x 10, Seated hip abd x 10 ASSESSMENT: Pt was fatigued after her session. PLAN: Cont as per PT POC. TREATMENT CODE/TIME: 8:55-9:07 (12) TP
[2023-01-08 09:10] VITALS: RESP 21
--- NOTE | 2023-01-08 11:25 | W.PM.DS.N ---
Date of service: 01/08/23 Time of Service: 11:25 DS: Diagnosis Discharge Diagnosis (1) Acute on chronic right-sided congestive heart failure: Status: Acute (2) Atrial fibrillation: Status: Chronic (3) Essential hypertension: Status: Chronic (4) Hyperlipidemia: Status: Acute (5) Obstructive sleep apnea syndrome: Status: Chronic Discharge Plan Disposition Patient Disposition: Home Condition: Stable Discharge Details Reason For Visit: Acute on chronic R-sided CHF Admit Date/Time: 01/04/23 23:15 Admit Provider: Lori Yuan Attending Provider: Lori Yuan Primary Care Provider: Kimberly Nicole Hospital Course Hospital Course: Ms Iqbal is a 77 year old female with history of R-sided CHF on torsemide, Afib on amiodarone, metopololol, and eliquis, IDDM2, hypothyroidism, LAI on CPAP who presented to [facility] ED with shortness of breath after being discharged from [facility] after a cardioversion earlier that day. She did not take her diuretic that day and reports she was given IV fluids. In the ED, she was hypoxic to the 80s on RA, was initiated on BiPAP, given a dose of furosemide 20 mg IV with improvement of her symptoms. Hospitalists were contacted for admission. She was placed in ICU and upon arrival (as a medsurg overlow), the patient became hypoxic to the 70s laying down in bed. Her oxygen requirements increased and she was provided additional diuresis. Hospital course also complicated by rapid wide complex tachycardia and review of rhythm strips and EKG, cardologist at [facility] , Dr. Duenas concluded that her rhythm was actually afib with aberrancy. At this time he is recommending rate control with her Toprol XL with the addition of diltiazem, continue anticoagulation with her Eliquis and to continue to diurese to a euvolemic state. Because she has failed two cardioversions she should be considered for ablation and placement of a pacemaker. They recommend outpatient follow up and she has been scheduled on January 12 at 2:[address] Medrano for her appointment. Her spironalactone dose with increased to 25 mg daily and she was discharged on diltiazem 120 mg daily. Vitals stable and oxygenating well on room air. discharged to home with no services. discussed with DR Yuan Home Meds and New Rx's Prescriptions: New diltiazem HCl 120 mg Capsule,Extended Release 24hr 120 mg PO HS Qty: 30 0RF Continued sucralfate 1 gram tablet 1 g PO AC & HS Qty: 120 12RF torsemide 20 mg tablet 40 mg PO DAILY acetaminophen [Tylenol] 325 mg tablet 325 - 650 mg PO Q4H PRN PRN (Reason: pain) Qty: 30 0RF magnesium chloride 64 mg tablet,delayed release (DR/EC) 64 mg PO BID Qty: 180 3RF Eliquis 5 mg tablet 5 mg PO BID Qty: 60 11RF metolazone 5 mg tablet 5 mg PO .COMPLEX Qty: 60 5RF Rx Instructions: Once weekly on Tuesday allopurinol 100 mg tablet 100 mg PO DAILY Qty: 90 1RF insulin glargine 100 unit/mL (3 mL) insulin pen 15 unit subcut QPM Qty: 15 3RF simvastatin 10 mg tablet 10 mg PO QPM Qty: 90 3RF colchicine 0.6 mg tablet 0.6 mg PO DAILY PRN (Reason: gout) Qty: 20 3RF cholecalciferol (vitamin D3) 25 mcg (1,000 unit) Tablet 1,000 units PO DAILY Qty: 0 0RF cyanocobalamin (vitamin B-12) [Vitamin B-12] 500 mcg Tablet 1,000 mcg PO DAILY Qty: 60 0RF levalbuterol tartrate 45 mcg/actuation HFA aerosol inhaler 2 inh inhalation Q6H PRN PRN (Reason: shortness of breath or wheezing) Qty: 15 0RF potassium chloride 20 mEq tablet,ER particles/crystals 40 meq PO BIDWMEAL Qty: 120 5RF levothyroxine 75 mcg Tablet 37.5 mcg PO DAILY@0600 Qty: 15 0RF metoprolol succinate 200 mg tablet extended release 24 hr 200 mg PO DAILY Patient Comments: TAKE ONE TABLET BY MOUTH EVERY DAY Changed spironolactone 25 mg tablet 25 mg PO DAILY Qty: 0 0RF Patient Comments: TAKE ONE-HALF TABLET BY MOUTH EVERY DAY docusate sodium 100 mg Capsule 100 mg PO BID Qty: 0 0RF No Action (DME) pen needle, diabetic [BD Ultra-Fine Mini Pen Needle] 31 gauge x 3/16 needle See Rx Instructions .Route Qty: 100 3RF Rx Instructions: As directed (DME) diabetic extra depth shoes See Rx Instructions .Route .MEDSUPPLY Qty: 1 0RF Rx Instructions: As directed (DME) blood sugar diagnostic Strip See Dose Instructions .ROUTE .MEDSUPPLY Qty: 400 3RF Dose Instruction: As directed Rx Instructions: use tid and prn.Accu-Chek Smart View Test Strip Discharge Instructions Instructions: Heart Failure (DC), A-fib (Atrial Fibrillation) (DC) Stand Alone Forms: Nursing Discharge Form Referrals: Dr. medrano [Other] - 01/12/23 2:30 pm Kimberly Nicole MD [Primary Care Provider] - (Call Tuesday to make an Appointent for Hospital Discharge) Activity:: Activity as Tolerated Equipment/Supplies:: No Equipment Needed Diet:: Low Sodium Discharge Orders Discharge Orders: Discharge Order (Routine); Ordered 01/08/23 Ordered By: Skylar Pena Discharge Data Discharge Date/Time-TO BE ENTERED AT DEPARTURE: 01/08/23 13:12 DS: Summary Time Spent with Patient providing and/or coordinating discharge services: Less than 30 minutes Status at Discharge Functional status at discharge: independent ambulation Overall status at discharge: patient is progressing back to baseline Mental Status: mental status grossly normal Speech and Movement: speech and movement normal Mood: congruent mood Affect: normal affect Exam Const General: cooperative, comfortable and no acute distress Nutritional Appearance: obese Orientation: alert, awake and oriented x3 HENMT Head: normal to inspection, normocephalic and atraumatic Mouth: oral mucosae normal Resp Effort & Inspection: normal respiratory effort Auscultation: diminished lung sounds and rales bilaterally at the base Cardio Rate: regular rate Rhythm: regular rhythm GI Inspection: normal to inspection Palpation: soft Skin General skin exam: no rashes or lesions noted Neuro General: patient alert, patient awake, patient oriented x3 and no focal motor deficits Extrem General: normal to inspection and full ROM Psych Mental Status: mental status grossly normal Speech and Movement: speech and movement normal Mood: congruent mood Affect: normal affect DS: Data Vitals/I&O Vitals and I&O: Vital Signs Temperature 36.4 C L 01/08/23 05:40 Temperature Source Tympanic 01/08/23 05:40 Pulse 74 01/08/23 05:40 Pulse Rhythm Irregular 01/07/23 22:05 Pulse 98 H 01/06/23 13:35 Respiratory Rate 14 01/08/23 05:40 Respiratory Effort Normal, Non-Labored 01/07/23 22:05 Respiratory Depth Normal 01/07/23 22:05 Respiratory Pattern Normal 01/07/23 22:05 Blood Pressure 116/67 01/08/23 05:40 Blood Pressure Mean 69 01/06/23 13:35 Blood Pressure Position Supine 01/06/23 08:00 Pulse Oximetry 93 01/08/23 05:40 Oxygen Delivery Method Room Air 01/08/23 05:40 Oxygen Flow Rate 0 01/08/23 05:40 Fraction of Inspired Oxygen (FIO2) 21 01/08/23 09:10 Pain Level 0 01/07/23 11:07 Comment RN Notified 01/07/23 03:20 Intake & Output 01/07/23 01/07/23 01/08/23 11:59 23:59 11:59 Output Total 700 / 1600 900 / 1600 700 / 700 Balance -700 / -1600 -900 / -1600 -700 / -700 Weight 104.6 kg 104.8 kg Output: Urine 700 / 1600 900 / 1600 700 / 700 Other: Urine Color Yellow Yellow Yellow Urine Appearance Cloudy Cloudy Cloudy Urine Odor Normal Normal Normal Comment pt said she voided 500 by herself Voiding Methods Bedside Commode Bedside Commode Toilet Data Completed and Pending Labs on day of discharge: Labs from last 24 hours 01/08/23 06:44 Sodium 138 Potassium 3.5 Chloride 98 Carbon Dioxide 28.6 Anion Gap 11.4 H BUN 62 H Creatinine 2.3 H Est GFR (CKD-EPI 2020) 21.49 Glucose 127 H Calcium 9.7 Magnesium 2.1 PFSH All Active Problems (Updated 01/09/23 @ 00:08 by JAMILA HORN) CHF exacerbation (Acute) Acute respiratory distress (Acute) Acute on chronic right-sided congestive heart failure (Acute) Obesity, morbid (Chronic) a. BMI of 52 Atrial fibrillation (Chronic 06/23/12) 02/19 start Tikosyn 06/21 and 11/20 recurrent 2013 ablation at [facility] echo 2012 at [facility], normal LVEF and valves 05/2021 RVR, s/p RODRIGUEZ CV and change to amiodarone. Essential hypertension (Chronic 08/13/13) Hyperlipidemia (Acute) Hypothyroidism (Chronic 12/06/14) Obstructive sleep apnea syndrome (Chronic 09/26/12) DX SEP 2012 AT [facility]; wears CPAP machine. Gout (Chronic) intermittent, diet based. 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 tachycardia manager terminal current use of antiarrhythmic medical therapy (08/21/13) Osteoarthritis Peptic ulcer disease with hemorrhage hx x 3 Pre-ulcerative corn or callous Restless legs (01/18/13) sleep study low iron (not anemic) Severe aortic stenosis Surgical History History of esophagogastroduodenoscopy (EGD) (~05/2018) 07/10/18 History of open sigmoidectomy S/P colonoscopy (~07/10/18) Status post abdominal hysterectomy Status post appendectomy Status post total bilateral knee replacement Status post transcatheter aortic valve replacement (TAVR) using bioprosthesis (~04/2021) Complicated by extravasation of contrast on iliofemoral angiography. 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 Son No problems noted. 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 Pets and animals: Yes Pets and animals: dog(s) Sexually active: Yes Do you think of yourself as: straight/heterosexual Current gender identity: female What is your relationship status?: How often do you talk on the phone with friends or family?: twice per week How often do you get together with friends or relatives?: three or more times per week How often do you attend congregational or christianity services?: 4 or more times per year Do you belong to any clubs or organized social groups?: no Panel score (0-1 are the most socially isolated patients): 3 What type of physical activity do you participate in: walking Duration: < 15 minutes/day Frequency: 1-2 times per week Radha/Christian: Bahai Special radha needs: No Seatbelt use: always Drive intox or ride w/intox food service driver: No Do you feel safe at home: Yes Do you feel safe in your relationship?: Yes Additional Social history: at bedside Time Spent with Patient Time Spent with Patient: <45 minutes Time was spent: preparing to see the patient(eg.review tests), obtaining and/or reviewing separately otained hiistory, ordering medications,tests, procedures, referring, communicating with other health urgent care technician, indepentently interpreting results and counseling the patient
[2023-01-08] MEDS: Insulin Aspart 300 UNITS/3 ML PEN SC (12:08)
--- NOTE | 2023-01-08 12:15 | PDOC.CMDIS ---
Date of service: 01/08/23 Time of Service: 12:15 LACE Index Scoring Tool Questions: Length of Stay (in days): 4 - 6 Was the patient admitted via the E.D.?: Yes Comorbidities: Diabetes w/o Complication, Congestive Heart Failure and Liver or Renal Disease E.D. Visits: 2 Answers: Total Score: 14 Risk of Readmission: High Risk Care Management Discharge Plan Reason for Hospitalization: CHF Discharge Plan: Maliha will return home today with no new services. Her will drive her home via private vehicle. She will follow up with her PCP and discharge plan of care. She is happy to be going home. Patient/Family Education Needs: Review discharge instructions and limitations, discussion of self care needs including ask me three.
[2023-01-08 13:02] VITALS: PULSE 93
--- NOTE | 2023-01-08 14:49 | RESPIRATORY ---
Patient has a home unit in which she used, its a Respironics SystemOne Mode: S/T on RA. Patient uses a [employer]uto.[employer] FX STD size with device and the DME is [employer].
--- NOTE | 2023-01-11 13:57 | INDS_ITS ---
Date of service: 01/10/23 PT Notes Visit Reasons: Acute on chronic R-sided CHF Physical Therapy Inpatient Discharge Summary Date: 01/10/2023 Date of service: 01/25/2023 through 01/08/2023 This is a clinical summary of care provided for the duration of dates listed above. No charge was made in the completion of this documentation. Referring Doctor:? Lori Yuan MD PT Orders: PT CONSULT: Limited ability Precautions: Fall. Standard.? Activity as tolerated.? On 02.0 L of oxygen per minute via NC. Patient Profile/Admitting Diagnosis:? Maliha is a 77-year-old female who presented to the ED on 01/04/2022 due to worsening shortness of breath.? Patient is diagnosed with acute on chronic right-sided CHF, atrial fibrillation, essential hypertension, hyperlipidemia lipidemia, and LAI. PMHX: All Active Problems?(Updated 01/05/23 @ 01:12 by Regan Georges DO) CHF exacerbation (Acute) Acute respiratory distress (Acute) DVT prophylaxis (Acute) Acute on chronic right-sided congestive heart failure (Acute) Obesity, morbid (Chronic) a. BMI of 52Atrial fibrillation (Chronic 06/23/12) 02/19 start Tikosyn 06/21 and 11/20 recurrent 2012 ablation at [facility] echo 2012 at [facility], normal LVEF and valves 05/2021 RVR, s/p RODRIGUEZ CV and change to amiodarone. Essential hypertension (Chronic 08/13/13) Hyperlipidemia (Acute) Hypothyroidism (Chronic 12/06/14) Obstructive sleep apnea syndrome (Chronic 09/26/12) DX SEP 2012 AT [facility]; wears CPAP machine. Gout (Chronic) intermittent, diet based.CHF (congestive heart failure) (Chronic) On amiodarone therapy (Acute) Mitral stenosis with regurgitation (Chronic) Malignant hypertensive heart and CKD (chronic kidney disease) stage IV (Acute) Iron deficiency anemia due to chronic blood loss (Acute) Type 2 diabetes mellitus without complication, with long-term current use of insulin (Acute) CKD (chronic kidney disease) stage 4, GFR 15-29 ml/min (Acute) Hypokalemia (Acute) Medical History? Asthma Bilateral bunions Colon polyp (07/10/18) 12/19 tubular adenoma Diabetic neuropathy Diverticulosis Former smoker (08/16/14) 5 pack yr history Gastroesophageal reflux disease GI bleed had melena transiently in 02/2021; unable to be evaluated due to AV stenosis.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 tachycardia custodial current use of antiarrhythmic medical therapy (08/21/13) Osteoarthritis Peptic ulcer disease with hemorrhage hx x 3 Pre-ulcerative corn or callous Restless legs (01/18/13) sleep study low iron (not anemic) Severe aortic stenosis Surgical History? History of esophagogastroduodenoscopy (EGD) (~05/2018) 07/10/18 History of open sigmoidectomy S/P colonoscopy (~07/10/18) Status post abdominal hysterectomy Status post appendectomy Status post total bilateral knee replacement Status post transcatheter aortic valve replacement (TAVR) using bioprosthesis (~04/2021) Complicated by extravasation of contrast on iliofemoral angiography.? 2 covered stents placed in the artery EIA extending into the R REPORTING CONSULTANT Social History/Home Situation: Lives with in a private home with no steps to enter through the garage.? Bedroom is on the second floor of the house with a flight of steps and a rail on one side. ?Loves to play cribbage. Equipment Owned/DME: FWW, [facility] Subjective: NT. See most recent ELIGIBILITY AND OCCUPANCY INTERVIEWER notes. Objective: General Observation: NT. See most recent ELIGIBILITY AND OCCUPANCY INTERVIEWER notes. Mental Status: NT. See most recent ELIGIBILITY AND OCCUPANCY INTERVIEWER notes. Pain: NT. See most recent ELIGIBILITY AND OCCUPANCY INTERVIEWER notes. Vital Signs: NT. See most recent ELIGIBILITY AND OCCUPANCY INTERVIEWER notes. ROM: Right Upper Extremity: ? Shoulder Flexion WFL. Shoulder abduction WFL. Elbow flexion WFL. Wrist flexion WFL. Functional opening and closing of hand WFL. Left Upper Extremity:? Shoulder Flexion WFL. Shoulder abduction WFL. Elbow flexion WFL. Wrist flexion WFL. Functional opening and closing of hand WFL. Right Lower Extremity: Hip flexion WFL. Hip abduction WFL. Knee flexion WFL. Ankle dorsiflexion WFL. Ankle plantarflexion WFL. Left Lower Extremity: Hip flexion WFL. Hip abduction WFL. Knee flexion WFL. Ankle dorsiflexion WFL. Ankle plantarflexion WFL. Strength: Right Upper Extremity: Shoulder flexors 4-/5. Shoulder abductors 4-/5. Elbow flexors 4-/5. Elbow extensors 4-/5. Motor And Generator Assembler strong. Left Upper Extremity: Shoulder flexors 4-/5. Shoulder abductors 4-/5. Elbow flexors 4-/5. Elbow extensors 4-/5. Motor And Generator Assembler strong. Right Lower Extremity: Hip flexors 4-/5. Hip abductors 4-/5. Knee flexors 4-/5. Knee extensors 4-/5. Ankle dorsiflexors 4-/5. Ankle plantarflexors 4-/5. Left Lower Extremity: Hip flexors 4-/5. Hip abductors 4-/5. Knee flexors 4-/5. Knee extensors 4-/5. Ankle dorsiflexors 4-/5. Ankle plantarflexors 4-/5. BED MOBILITY/TRANSFERS? Sit-stand: independent ? Stand-sit: independent ? Bed-Chair: independent? Chair-bed: independent ? GAIT? Assistive Device: front wheeled walker ? Weight bearing: full Assist: independent ? Distance:? 150 feet? Deviation: Reduced step height, reduced step length, reduced archie, forward leaning posture.? VITALS:? SaO2 93, 94% on room air. Hr mid 130s with ambulation, returned to mid 110s within a minute or two of resting. Monitored by respiratory therapy. Stairs: Ascended and descended 6 x 4 inch steps and 4 x 6 inch steps while holding onto bilateral rails with step to gait pattern, cues given to pace self to minimize vital signs variation.? Reported left previous charley horse on the left hamstring acting up, resolved with rest. Balance: Static Sitting: Normal Dynamic Sitting: Normal Static Standing: Fair Dynamic Standing:? Fair Assessment: Patient presents with clinical signs and symptoms consistent with curren t/admitting diagnoses that have resulted to mobility limitations, gait instability, generalized weakness, and overall ADL decline as demonstrated by the following impairment level findings: 1.? Decreased strength to B UE/LE major muscle groups 2.? Impaired standing balance 3.? Impaired activity tolerance 4.? Shortness of breath 5.? Fatigue Impairments are contributing to the following functional limitations: 1.? Difficulty with ambulation without assistive device 2.? Increased completion time for mobility ADL performance 3.? Increased risk for falls 4.? Difficulty with managing steps alone safely Goals: Goals X1 week 1. Supine-Sit independent MET 2. Sit-Supine independent MET 3. Sit-Stand independent MET 4. Stand-Sit independent with FWW MET 5. Bed-Chair independent with FWW MET 6. Chair-Bed independent with FWW MET 7. Independent gait on level surface with use of FWW for at least 300 feet without report of pain nor dyspnea NOT MET 8. Independent stair negotiation while holding onto one rail for at least 15 steps without report of pain nor dyspnea NOT MET 9. Independent with home exercise program NOT MET 10. Good static and dynamic standing balance/tolerance NOT MET DISCHARGE RECOMMENDATIONS: [] ? Home with no services? [X] ? Home with services.? Patient will benefit from home health PT services in order to progress mobility level using least restrictive assistive ambulatory device, assess home safety, identify additional equipment needs, and establish a functional maintenance program that will increase ability of patient to remain at home. [] ? Home with outpatient PT [] [] ? SNF for continued rehabilitation [] [] ? Retirement Care [] [] ? SNF versus LTC based on ability to participate and progress [] TREATMENT CODE/TIME: [place] Thank you for the opportunity to participate in the care of this patient. Antonia Ramirez PT, DPT, CLT [facility] [place], [place]
== END 2023-01-08 13:12 | disposition home or self-care (01) | DRG 291 ==
LOC: ER 01-05 01:08 → ICU 01-05 01:10 → MS 01-06 15:19
PROVIDERS: Internal Medicine; Nurse Practitioner Family; Admitting Provider Internal Medicine; Emergency Provider Student in an Organized Health Care Education/Training Program; PCP Family Medicine; Visit Provider Internal Medicine
DX: I13.0 Hypertensive heart and chronic kidney disease with heart failure and stage 1 through stage 4 chronic kidney disease, or unspecified chronic kidney disease (principal); I50.33 Acute on chronic diastolic (congestive) heart failure; I48.11 Longstanding persistent atrial fibrillation; Z68.42 Body mass index [BMI] 45.0-49.9, adult; N18.4 Chronic kidney disease, stage 4 (severe); I47.20 Ventricular tachycardia, unspecified; I50.813 Acute on chronic right heart failure; G47.33 Obstructive sleep apnea (adult) (pediatric); E78.5 Hyperlipidemia, unspecified; Z79.01 Long term (current) use of anticoagulants; Z79.4 Long term (current) use of insulin; Z95.2 Presence of prosthetic heart valve; E66.01 Morbid (severe) obesity due to excess calories; E03.9 Hypothyroidism, unspecified; M10.9 Gout, unspecified; I34.0 Nonrheumatic mitral (valve) insufficiency; D50.0 Iron deficiency anemia secondary to blood loss (chronic); E11.22 Type 2 diabetes mellitus with diabetic chronic kidney disease; E87.6 Hypokalemia; J45.909 Unspecified asthma, uncomplicated; E11.40 Type 2 diabetes mellitus with diabetic neuropathy, unspecified; K21.9 Gastro-esophageal reflux disease without esophagitis; Z87.11 Personal history of peptic ulcer disease; Z66 Do not resuscitate; I27.20 Pulmonary hypertension, unspecified
CPT/HCPCS: 92960; 36410; 36415; 80048; 80053; 82805; 93005; 94618; 96374; 97110; 97116; 97162; 97530; 99291; 36600; 71045; 83735; 83880; 84132; 84484; 85025; 93010; 93306; 94660; 99223; 99232; 99233; 99238; J1940; J1941; J2060; J3010; J3480; J3490

== ENCOUNTER 2023-01-12 08:51 | Outpatient (CLI) | payer MEDICARE, SELFPAY ==
--- NOTE | 2023-01-12 08:45 | RT.EKG_ITS ---
APPROVED REPORT Exam: Resting ECG Reason for Exam: afib Patient Location: O HR:91 bpm ECG Measurements Heart Rate 91 AXIS ID [id number] P [id number] QRSd 122 QRS -45 QT 415 T -31 QTc 511 Conclusion Atrial fibrillation...? atrial activity Ventricular bigeminy...bigeminy string>4 w/ V complexes Left bundle branch block...QRSd>120, broad/notched R
== END 2023-01-12 08:52 | disposition home or self-care (01) ==
LOC: DI.CARD 08:52
PROVIDERS: PCP Family Medicine; Visit Provider Internal Medicine Cardiovascular Disease
DX: I48.91 Unspecified atrial fibrillation (principal)
CPT/HCPCS: 93010

== ENCOUNTER → 2023-01-12 13:36 | Outpatient (BNVA) | payer MEDICARE, SELFPAY | PROVIDERS: PCP Family Medicine; Referring Provider Family Medicine; Visit Provider Internal Medicine Cardiovascular Disease | DX: I48.11 Longstanding persistent atrial fibrillation (principal); I50.9 Heart failure, unspecified; I13.0 Hypertensive heart and chronic kidney disease with heart failure and stage 1 through stage 4 chronic kidney disease, or unspecified chronic kidney disease; N18.9 Chronic kidney disease, unspecified; E11.22 Type 2 diabetes mellitus with diabetic chronic kidney disease | CPT/HCPCS: 93005; 99214 ==

== ENCOUNTER 2023-01-18 02:03 | Outpatient (CLI) | payer MEDICARE, SELFPAY ==
[2023-01-18 12:54] LABS: Anion Gap 7.4 mmol/L (3-11); BUN 55 mg/dL (7-18); CO2 30.6 mmol/L (21.0-32.0); CREATININE 1.9 mg/dL (0.55-1.02); Calcium 9.7 mg/dL (8.5-10.1); Chloride 97 mmol/L (98-107); Estimated GFR 27.03 (mL/min/1.73m2); Glucose 167 mg/dL (74-106); Potassium 4.3 mmol/L (3.5-5.1); Sodium 135 mmol/L (136-145)
[2023-01-18 12:58] LABS: Microalb ug/mg Crea 9.7 ug/mg Cr
== END 2023-01-18 02:04 | disposition home or self-care (01) ==
PROVIDERS: PCP Family Medicine; Visit Provider Family Medicine
DX: E11.9 Type 2 diabetes mellitus without complications (principal); Z79.4 Long term (current) use of insulin; I10 Essential (primary) hypertension
CPT/HCPCS: 36415; 80048; 82043; 82570

== ENCOUNTER → 2023-01-21 09:40 | Outpatient (BNVA) | payer MEDICARE, SELFPAY | PROVIDERS: PCP Family Medicine; Visit Provider Internal Medicine Cardiovascular Disease | DX: I13.0 Hypertensive heart and chronic kidney disease with heart failure and stage 1 through stage 4 chronic kidney disease, or unspecified chronic kidney disease (principal); N18.9 Chronic kidney disease, unspecified; E11.22 Type 2 diabetes mellitus with diabetic chronic kidney disease; I48.11 Longstanding persistent atrial fibrillation; I50.813 Acute on chronic right heart failure; Z79.899 Other long term (current) drug therapy; Z95.3 Presence of xenogenic heart valve | CPT/HCPCS: 99214 ==

== ENCOUNTER 2023-03-03 15:50 | Outpatient (REF) | payer MEDICARE, SELFPAY | END 2023-03-03 15:51 | disposition home or self-care (01) | LOC: LBN 15:50 | PROVIDERS: PCP Family Medicine; Visit Provider Nurse Practitioner Family | DX: N76.0 Acute vaginitis (principal) | CPT/HCPCS: 87480; 87510; 87660 ==

== ENCOUNTER → 2023-05-03 09:57 | Outpatient (BNVA) | payer MEDICARE, SELFPAY | PROVIDERS: PCP Family Medicine; Referring Provider Family Medicine; Visit Provider Internal Medicine Cardiovascular Disease | DX: I44.2 Atrioventricular block, complete (principal); Z95.0 Presence of cardiac pacemaker; I48.20 Chronic atrial fibrillation, unspecified; Z79.01 Long term (current) use of anticoagulants; I50.813 Acute on chronic right heart failure; Z95.3 Presence of xenogenic heart valve | CPT/HCPCS: 99214 ==

== ENCOUNTER 2023-05-25 03:59 | Outpatient (CLI) | payer MEDICARE, SELFPAY ==
[2023-05-25 09:33] LABS: HGB 10.7 g/dL (11.2-15.7); MCH 21.6 pg (27.0-33.0); MCHC 28.2 % (32.0-36.0); MCV 77 fL (80-95); MPV 8.5 fL (8.0-11.0); Platelet Count 350 10^3/uL (130-400); RBC 4.96 10^6/uL (3.93-5.22); RDW 20.4 % (11.7-14.6); RDW-SD 55.1 fL; WBC 7.04 10^3/uL (4.4-10.8)
[2023-05-25 09:58] LABS: Anion Gap 9.8 mmol/L (3-11); BUN 51 mg/dL (7-18); CO2 27.2 mmol/L (21.0-32.0); CREATININE 1.9 mg/dL (0.55-1.02); Calcium 9.8 mg/dL (8.5-10.1); Chloride 98 mmol/L (98-107); Estimated GFR 27.03 (mL/min/1.73m2); Glucose 156 mg/dL (74-106); Potassium 3.9 mmol/L (3.5-5.1); Sodium 135 mmol/L (136-145)
== END 2023-05-25 04:00 | disposition home or self-care (01) ==
PROVIDERS: PCP Family Medicine; Visit Provider Family Medicine
DX: D50.0 Iron deficiency anemia secondary to blood loss (chronic) (principal); I10 Essential (primary) hypertension; N18.4 Chronic kidney disease, stage 4 (severe)
CPT/HCPCS: 36415; 80048; 85027

== ENCOUNTER 2023-08-30 19:35 | Emergency (ER) | payer MEDICARE, SELFPAY ==
[2023-08-30] VITALS (32 sets, daily range): BP systolic 99–145; BP diastolic 24–78; PULSE 70–84; RESP 14–26; TEMP 37.1; O2SAT 91–100
--- NOTE | 2023-08-30 19:30 | RT.EKG_ITS ---
APPROVED REPORT Exam: Resting ECG Reason for Exam: short of breath Patient Location: E HR:75 bpm ECG Measurements Heart Rate 75 AXIS DE 214 P 222 QRSd 176 QRS -86 QT 465 T 90 QTc 520 Conclusion Sinus or ectopic atrial rhythm...P axis (-45,135) Borderline prolonged DE interval...DE >212, V-rate 50- 90 Left bundle branch block...QRSd>120, broad/notched R ST elevation secondary to IVCD...Multiple VCG criteria
--- NOTE | 2023-08-30 19:45 | DI.RAD_ITS ---
Exam(s) XR CHEST 2V PA LATERAL EXAM: XR CHEST 2V PA LATERAL CLINICAL HISTORY: weakness, crackles on right TECHNIQUE: 2D digital imaging was performed. COMPARISON: CR XR PORTABLE CHEST AP from 01/05/2023 FINDINGS: HEART: Mildly enlarged. Mitral annular calcification. Aortic valve prosthesis. Aorta: Not dilated. Calcified. PULMONARY VASCULATURE: Prominent. LUNGS: Increased interstitial markings suspicious for CHF. PLEURAL SPACE: No pleural effusion or pneumothorax. BONE:Unremarkable for age. Soft tissues: Unremarkable. IMPRESSION: Increased interstitial markings pulmonary vascular prominence suspicious for mild CHF. DATA REPOSITORY: RADIATION DOSE DELIVERED:
[2023-08-30 20:16] LABS: Abs Immature Grans 0.01 10^3/uL (0.0-0.06); Absolute Basophil Count 0.02 10^3/uL (0.0-0.2); Absolute Eosinophil Count 0.15 10^3/uL (0.0-0.7); Absolute Lymphocyte Count 1.59 10^3/uL (1.2-3.4); Absolute Monocyte Count 0.26 10^3/uL (0.1-0.8); Absolute Neutrophil Count 1.38 10^3/uL (1.2-6.7); Basophils % 0.6; Eosinophils % 4.4; HCT 38.1 % (36.0-46.0); HGB 11.6 g/dL (11.2-15.7); Immature Grans % 0.3; Lymphocytes % 46.6; MCH 24.9 pg (27.0-33.0); MCHC 30.4 % (32.0-36.0); MCV 82 fL (80-95); MPV 9.1 fL (8.0-11.0); Monocytes % 7.6; Neutrophils % 40.5; Platelet Count 273 10^3/uL (130-400); RBC 4.65 10^6/uL (3.93-5.22); RDW 23.2 % (11.7-14.6); RDW-SD 67.8 fL; WBC 3.41 10^3/uL (4.4-10.8)
--- NOTE | 2023-08-30 20:18 | ED.GENADUL_ITS ---
HPI <PARESH Castillo - Last Filed: 09/01/23 13:05> General Date/Time Provider Initiated Documentation: 08/30/23 19:37 . HPI Narrative: This complex 77-year-old female past medical history of pacemaker status post complete heart block in February, atrial fibrillation, AV node ablation, chronically anticoagulated on Eliquis, recent TAVR procedure in February, insulin-dependent diabetes, chronic kidney disease presents with report of cough and upper respiratory symptoms for the past 3 weeks followed by hemoptysis for the past 24 hours, has had approximately 6-8 episodes of hemoptysis, blood-tinged sputum. Denies any weakness or dizziness. Has some pain with coughing predominantly in her chest. Denies known sick contacts or fever. States she feels mildly short of breath. Denies any new calf pain or swelling, weight gain, orthopnea, denies any abdominal pain, blood in stool, blood in urine, or any additional complaints at this time. Denies any tobacco or illicit drug use. Related Data Home Medications Medication Instructions Recorded Confirmed acetaminophen 325 mg tablet 325 - 650 mg (1 - 2 x 325 mg) PO 05/24/18 08/30/23 (Tylenol) Q4H PRN PRN pain #30 tabs magnesium chloride 64 mg 64 mg PO BID #180 tabs 04/07/21 08/30/23 (magnesium chloride) tablet,delayed release cholecalciferol (vitamin D3) 25 1,000 units PO DAILY #0 tabs 06/30/22 08/30/23 mcg (1,000 unit) tablet metolazone 5 mg tablet 5 mg PO .COMPLEX #60 tabs 08/23/22 08/30/23 diabetic extra depth shoes #1 ea 10/13/22 08/30/23 blood sugar diagnostic #400 ea 11/20/22 08/30/23 simvastatin 10 mg tablet 10 mg PO QPM #90 tabs 12/09/22 08/30/23 cyanocobalamin (vitamin B-12) 500 1,000 mcg (2 x 500 mcg) PO DAILY 12/15/22 08/30/23 mcg tablet (Vitamin B-12) #60 tabs blood-glucose sensor (Dexcom G6 #3 ea 01/14/23 08/30/23 Sensor device) blood-glucose transmitter (Dexcom #1 ea 01/14/23 08/30/23 G6 Transmitter device) insulin aspart U-100 100 unit/mL See Rx Instructions subcut TID #15 01/14/23 08/30/23 (3 mL) subcutaneous pen (Novolog mL FlexPen U-100 Insulin aspart) spironolactone 25 mg tablet 25 mg PO DAILY #90 tabs 02/17/23 08/30/23 blood-glucose meter,continuous #1 ea 02/21/23 08/30/23 (Dexcom G6 [employer]) metoprolol succinate 200 mg 100 mg PO DAILY 02/25/23 08/30/23 tablet,extended release 24 hr sucralfate 1 gram tablet 1 g PO AC & HS #120 tabs 03/07/23 08/30/23 pen needle, diabetic 31 gauge x #100 ea 04/13/23 08/30/23/16 (BD Ultra-Fine Mini Pen Needle) levothyroxine 75 mcg tablet 37.5 mcg (1/2 x 75 mcg) PO 05/09/23 08/30/23 DAILY@0600 #15 tabs torsemide 20 mg tablet 40 mg (2 x 20 mg) PO DAILY #60 tabs 05/12/23 08/30/23 insulin glargine 100 unit/mL (3 20 unit (0.2 mL) subcut QPM #15 mL 06/06/23 08/30/23 mL) subcutaneous pen colchicine 0.6 mg tablet 0.6 mg PO DAILY PRN gout #20 tabs 07/07/23 08/30/23 clotrimazole 1 % topical cream 1 applic topical BID #45 grams 07/13/23 08/30/23 apixaban 5 mg tablet (Eliquis) 5 mg PO BID #60 tabs 07/14/23 08/30/23 potassium chloride 20 mEq 40 meq (2 x 20 mEq) PO BIDWMEAL 07/25/23 08/30/23 tablet,extended release(part/cryst) #120 tabs allopurinol 100 mg tablet 100 mg PO DAILY #90 tabs 08/11/23 08/30/23 Previous Rx's Medication Instructions Recorded acetaminophen 325 mg tablet 325 - 650 mg (1 - 2 x 325 mg) PO 05/24/18 (Tylenol) Q4H PRN PRN pain #30 tabs magnesium chloride 64 mg 64 mg PO BID #180 tabs 04/07/21 (magnesium chloride) tablet,delayed release cholecalciferol (vitamin D3) 25 1,000 units PO DAILY #0 tabs 06/30/22 mcg (1,000 unit) tablet metolazone 5 mg tablet 5 mg PO .COMPLEX #60 tabs 08/23/22 diabetic extra depth shoes #1 ea 10/13/22 blood sugar diagnostic #400 ea 11/20/22 simvastatin 10 mg tablet 10 mg PO QPM #90 tabs 12/09/22 cyanocobalamin (vitamin B-12) 500 1,000 mcg (2 x 500 mcg) PO DAILY 12/15/22 mcg tablet (Vitamin B-12) #60 tabs blood-glucose sensor (Dexcom G6 #3 ea 01/14/23 Sensor device) blood-glucose transmitter (Dexcom #1 ea 01/14/23 G6 Transmitter device) insulin aspart U-100 100 unit/mL See Rx Instructions subcut TID #15 01/14/23 (3 mL) subcutaneous pen (Novolog mL FlexPen U-100 Insulin aspart) spironolactone 25 mg tablet 25 mg PO DAILY #90 tabs 02/17/23 blood-glucose meter,continuous #1 ea 02/21/23 (Dexcom G6 [employer]) sucralfate 1 gram tablet 1 g PO AC & HS #120 tabs 03/07/23 pen needle, diabetic 31 gauge x #100 ea 04/13/2310/21 (BD Ultra-Fine Mini Pen Needle) levothyroxine 75 mcg tablet 37.5 mcg (1/2 x 75 mcg) PO 05/09/23 DAILY@0600 #15 tabs torsemide 20 mg tablet 40 mg (2 x 20 mg) PO DAILY #60 tabs 05/12/23 insulin glargine 100 unit/mL (3 20 unit (0.2 mL) subcut QPM #15 mL 06/06/23 mL) subcutaneous pen colchicine 0.6 mg tablet 0.6 mg PO DAILY PRN gout #20 tabs 07/07/23 clotrimazole 1 % topical cream 1 applic topical BID #45 grams 07/13/23 apixaban 5 mg tablet (Eliquis) 5 mg PO BID #60 tabs 07/14/23 potassium chloride 20 mEq 40 meq (2 x 20 mEq) PO BIDWMEAL 07/25/23 tablet,extended release(part/cryst) #120 tabs allopurinol 100 mg tablet 100 mg PO DAILY #90 tabs 08/11/23 Allergies Allergy/AdvReac Type Severity Reaction Status Date / Time ceftriaxone Allergy Intermediate Hives Verified 08/30/23 21:37 aspirin Allergy Hives Verified 08/30/23 21:37 Penicillins Allergy Verified 08/30/23 21:37 tetracycline Allergy Verified 08/30/23 21:37 adhesive AdvReac Intermediate Topical Verified 08/30/23 21:37 Irritation General Stated Complaint: RespSymp BROOKE: 3 Course <PARESH Castillo - Last Filed: 09/01/23 13:05> Vital Signs Vital signs: Vital Signs Temperature 37.1 C 08/30/23 19:40 Pulse 83 08/30/23 19:40 Respiratory Rate 20 08/30/23 19:40 Blood Pressure 145/70 H 08/30/23 19:40 Pulse Oximetry 96 08/30/23 19:40 Temperature 37.1 C 08/30/23 19:43 Temperature Source Oral 08/30/23 19:43 Pulse 83 08/30/23 19:43 Respiratory Rate 20 08/30/23 19:43 Respiratory Effort Short of Breath 08/30/23 19:43 Respiratory Depth Normal 08/30/23 19:43 Blood Pressure 145/70 H 08/30/23 19:43 Blood Pressure Position Sitting 08/30/23 19:43 Pulse Oximetry 96 08/30/23 19:43 Oxygen Delivery Method Room Air 08/30/23 19:43 Oxygen Flow Rate 0 08/30/23 19:40 Pain Level 3 08/30/23 19:43 Medical Decision Making <PARESH Castillo - Last Filed: 09/01/23 13:05> This complex 77-year-old female presents with report of hemoptysis cough and cold symptoms for the past 3 weeks, has been sick with similar presentation Has had several episodes of hemoptysis since last evening which is why she presents Has chest pain predominantly with coughing and some shortness of breath with exertion States this is different from her CHF presentation Is chronically anticoagulated with Eliquis with a history of atrial fibrillation, status post pacemaker placement in February for complete heart block and history of atrial fibrillation, status post TAVR procedur Troponin initially elevated at 88, likely demand ischemia, repeat 3 hours later 84 DNR/DNI status, EKG without acute ischemia Chest x-ray with bilateral interstitial infiltrates consistent on exam with crackles bilaterally, BNP 1995, decreased from patient's baseline, creatinine 2.3, baseline of 2.3 Initiated blood pressure labile, on reassessment 138/74, consistent with patient's prior Meets sepsis criteria with source of pneumonia, leukopenia, 3, and tachypnea Lactate of 2.2 Given history of CHF on torsemide, will be conservative with fluid resuscitation, will give 500 cc of NS over an extended period of time Will give Levaquin secondary to allergies consistent of penicillin and ceftriaxone Flu, COVID, RSV negative Previous echo, 56% ejection fraction 6 months prior to arrival today D-dimer is ordered out of concern for PE, however she 77 years old and her D- dimer level is 883, I think the risk of PE is low, unfortunately I cannot perform CTA on the patient secondary to creatinine level, will reassess in the morning Diabetic, glucose 160 At this time patient will need admission for sepsis, pneumonia, and continued observation and trending of troponin levels, she did take her Eliquis today, she has not had any additional episodes of hemoptysis in the emergency department has remained stable As we do not currently have capacity to admit the patient to his hospital this facility, we are calling outside resources Quality:[facility] Health Related Social Needs: No Data to Display <Mervin Smith MD - Last Filed: 08/31/23 09:17> This complex 77-year-old female presents with report of hemoptysis cough and cold symptoms for the past 3 weeks, has been sick with similar presentation Has had several episodes of hemoptysis since last evening which is why she presents Has chest pain predominantly with coughing and some shortness of breath with exertion States this is different from her CHF presentation Is chronically anticoagulated with Eliquis with a history of atrial fibrillation, status post pacemaker placement in February for complete heart block and history of atrial fibrillation, status post TAVR procedur Troponin initially elevated at 88, likely demand ischemia, repeat 3 hours later 84 DNR/DNI status, EKG without acute ischemia Chest x-ray with bilateral interstitial infiltrates consistent on exam with crackles bilaterally, BNP 1995, decreased from patient's baseline, creatinine 2.3, baseline of 2.3 Initiated blood pressure labile, on reassessment 138/74, consistent with patient's prior Meets sepsis criteria with source of pneumonia, leukopenia, 3, and tachypnea Lactate of 2.2 Given history of CHF on torsemide, will be conservative with fluid resuscitation, will give 500 cc of NS over an extended period of time Will give Levaquin secondary to allergies consistent of penicillin and ceftriaxone Flu, COVID, RSV negative Previous echo, 56% ejection fraction 6 months prior to arrival today D-dimer is ordered out of concern for PE, however she 77 years old and her D- dimer level is 883, I think the risk of PE is low, unfortunately I cannot pe rform CTA on the patient secondary to creatinine level, will reassess in the morning Diabetic, glucose 160 At this time patient will need admission for sepsis, pneumonia, and continued observation and trending of troponin levels, she did take her Eliquis today, she has not had any additional episodes of hemoptysis in the emergency department has remained stable As we do not currently have capacity to admit the patient to his hospital this facility, we are calling outside resources 9: [facility] has reviewed patient's information is excepted for transfer. Awaiting name of accepting physician [facility] <PARESH Castillo - Last Filed: 09/01/23 13:05> All Active Problems (Updated 08/30/23 @ 23:39 by PARESH Castillo) Pneumonia (Acute) Sepsis (Acute) Elevated troponin (Acute) CKD (chronic kidney disease) (Chronic) Cardiac pacemaker (Acute) 04/30/23 placed at [facility] [place] 02/18/23 after AV node ablation causing CHB. Medtronic micra [id number] SERIAL # [id number] Complete heart block (Acute 02/2023) 02/19/23 Per [facility] [place]. Completely dependent on ventricular pace maker. V paced leadless pacer placed at [facility] [place]. 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 Obstructive sleep apnea syndrome (Chronic 09/26/12) DX SEP 2012 AT [facility]; wears CPAP machine. Hypothyroidism (Chronic 12/06/14) Hyperlipidemia (Acute) Essential hypertension (Chronic 08/13/13) Obesity, morbid (Chronic) a. BMI of 52 Medical History (Updated 08/30/23 @ 23:39 by PARESH Castillo) Encounter for insertion of cardiac resynchronization therapy pacemaker Right ventricular Per [facility] [place] 02/19/23. -hb 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 tachycardia Diabetic neuropathy Pre-ulcerative corn or callous Bilateral bunions Severe aortic stenosis GI bleed had melena transiently in 02/2021; unable to be evaluated due to AV stenosis. 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 Asthma Gastroesophageal reflux disease Surgical History Status post transcatheter aortic valve replacement (TAVR) using bioprosthesis (~04/2021) Complicated by extravasation of contrast on iliofemoral angiography. 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 Son No problems noted. 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 Pets and animals: Yes Pets and animals: dog(s) Sexually active: Yes Do you think of yourself as: straight/heterosexual Current gender identity: female What is your relationship status?: How often do you talk on the phone with friends or family?: twice per week How often do you get together with friends or relatives?: three or more times per week How often do you attend christian or mandaen services?: 4 or more times per year Do you belong to any clubs or organized social groups?: no Panel score (0-1 are the most socially isolated patients): 3 What type of physical activity do you participate in: walking Duration: < 15 minutes/day Frequency: 1-2 times per week Radha/Sabianism: L[employer] Day Special radha needs: No Seatbelt use: always Drive intox or ride w/intox bellman driver: No Do you feel safe at home: Yes Do you feel safe in your relationship?: Yes Additional Social history: at bedside Sign Out <PARESH Castillo - Last Filed: 09/01/23 13:05> Sign Out Data: Sign Out Comment: pneumonia, sepsis, ckd, demand ischemia, pending admission vs transfer for [facility] admission repeat lactate pending 3 hour Last updated by Alicia Maguire PA at 08/30/23 23:37 Sign Out Comment: 77yo F with pneumonia, hx CHF/pacer, [facility] with bed available at 8am. Call after 8 for doc-to-doc with Dr. Bain Last updated by Cary Calle MD at 08/31/23 06:19 Discharge Plan Disposition Patient Disposition: Transfer-Acute Inpatient Care Specific Acute Inpt Facility: Other Condition: Serious Discharge Details Clinical Impression: CKD (chronic kidney disease), Elevated troponin, Sepsis, Pneumonia Primary Care Provider: Kimberly Nicole ED Provider: Mervin Smith Home Meds and New Rx's Prescriptions: No Action (DME) diabetic extra depth shoes See Rx Instructions .Route .MEDSUPPLY Qty: 1 0RF Rx Instructions: As directed (DME) Dexcom G6 Sensor Device See Rx Instructions .MEDSUPPLY Qty: 3 12RF Rx Instructions: As directed (DME) Dexcom G6 Transmitter Device See Rx Instructions .MEDSUPPLY Qty: 1 3RF Rx Instructions: As directed insulin aspart U-100 [Novolog FlexPen U-100 Insulin] 100 unit/mL (3 mL) insulin pen See Rx Instructions subcut TID Qty: 15 5RF Rx Instructions: sliding scale with meals: use 2 units glucose 120-150; 4 units glucose 151- 200; 6 units 201-250; 8 units 251+ subcutaneously three times a day; acetaminophen [Tylenol] 325 mg tablet 325 - 650 mg PO Q4H PRN PRN (Reason: pain) Qty: 30 0RF magnesium chloride 64 mg tablet,delayed release (DR/EC) 64 mg PO BID Qty: 180 3RF metolazone 5 mg tablet 5 mg PO .COMPLEX Qty: 60 5RF Rx Instructions: Once weekly on Tuesday ([facility]) blood sugar diagnostic Strip See Dose Instructions .ROUTE .MEDSUPPLY Qty: 400 3RF Dose Instruction: As directed Rx Instructions: use tid and prn.Accu-Chek Smart View Test Strip simvastatin 10 mg tablet 10 mg PO QPM Qty: 90 3RF spironolactone 25 mg tablet 25 mg PO DAILY Qty: 90 1RF Patient Comments: TAKE ONE-HALF TABLET BY MOUTH EVERY DAY ([facility]) Dexcom G6 [employer] Misc See Rx Instructions .MEDSUPPLY Qty: 1 0RF Rx Instructions: As directed metoprolol succinate 200 mg tablet extended release 24 hr 100 mg PO DAILY Patient Comments: TAKE ONE TABLET BY MOUTH EVERY DAY Rx Instructions: Decrease to 100mg daily per [facility] Cardiology 02/19/23. -hb sucralfate 1 gram tablet 1 g PO AC & HS Qty: 120 12RF (DME) pen needle, diabetic [BD Ultra-Fine Mini Pen Needle] 31 gauge x 3/16 needle See Rx Instructions .Route Qty: 100 12RF Rx Instructions: As directed qid levothyroxine 75 mcg tablet 37.5 mcg PO DAILY@0600 Qty: 15 3RF torsemide 20 mg tablet 40 mg PO DAILY Qty: 60 5RF insulin glargine 100 unit/mL (3 mL) insulin pen 20 unit subcut QPM Qty: 15 12RF colchicine 0.6 mg tablet 0.6 mg PO DAILY PRN (Reason: gout) Qty: 20 3RF clotrimazole 1 % cream 1 applic topical BID Qty: 45 2RF Rx Instructions: Apply to affected areas twice a day for 2-4wks Eliquis 5 mg tablet 5 mg PO BID Qty: 60 11RF potassium chloride 20 mEq tablet,ER particles/crystals 40 meq PO BIDWMEAL Qty: 120 5RF allopurinol 100 mg tablet 100 mg PO DAILY Qty: 90 3RF cholecalciferol (vitamin D3) 25 mcg (1,000 unit) Tablet 1,000 units PO DAILY Qty: 0 0RF Hold Instructions: Pt Stopped/Never Started cyanocobalamin (vitamin B-12) [Vitamin B-12] 500 mcg Tablet 1,000 mcg PO DAILY Qty: 60 0RF Hold Instructions: Pt Stopped/Never Started Discharge Data Discharge Date/Time-TO BE ENTERED AT DEPARTURE: 08/31/23 09:45
[2023-08-30 20:38] LABS: ALT 19 U/L (14-59); AST 24 U/L (15-37); Albumin 3.3 g/dL (3.4-5.0); Alkaline Phosphatase 81 U/L (46-116); Anion Gap 12.3 mmol/L (3-11); BUN 57 mg/dL (7-18); Bilirubin, Total 0.3 mg/dL (0.2-1.0); CO2 28.7 mmol/L (21.0-32.0); CREATININE 2.3 mg/dL (0.55-1.02); Chloride 97 mmol/L (98-107); Estimated GFR 21.49 (mL/min/1.73m2); Glucose 160 mg/dL (74-106); NT-proBNP 1996 pg/mL (<300); Potassium 3.7 mmol/L (3.5-5.1); Sodium 138 mmol/L (136-145); Total Protein 8.3 g/dL (6.4-8.2)
[2023-08-30] MEDS: Albuterol 2.5 MG/3 ML INH SOLN VIAL UPD (20:39)
[2023-08-30] MEDS: predniSONE 20 MG TAB 40 MG PO (20:39)
[2023-08-30 20:42] LABS: Diff Comment RBC Morph Reviewed
[2023-08-30 20:43] LABS: Anisocytosis 2+; Hypochromasia 1+; Microcytosis 1+; Poikilocytes 1+
[2023-08-30 20:45] LABS: Troponin I 88 ng/L (< or =60)
--- NOTE | 2023-08-30 21:02 | DI.VRAD_ITS ---
PROCEDURE INFORMATION: Exam: XR Chest Exam date and time: 08/30/2023 8:27 PM Age: 77 years old Clinical indication: Other: Weakness, crackles on right TECHNIQUE: Imaging protocol: Radiologic exam of the chest. Views: 2 views. COMPARISON: CR XR PORTABLE CHEST AP 01/05/2023 11:14 AM FINDINGS: Tubes, catheters and devices: Loop recorder overlies the left heart Lungs: Opacities in both bases may represent atelectasis or pneumonia.. Increased interstitial vascular structures may represent interstitial edema. Pleural spaces: Unremarkable. No pleural effusion. No pneumothorax. Heart/Mediastinum: Mild cardiomegaly Bones/joints: Unremarkable. IMPRESSION: Opacities in both bases may represent atelectasis or pneumonia.. Dictated and Authenticated by: Rachael Castro MD. Ordering:GARY Vargas MD
[2023-08-30 21:33] LABS: D-Dimer 883 ng/mlFEU (<500)
[2023-08-30] MEDS: levoFLOXacin 750 MG/150 ML BAG 100 MG IVPB (21:33)
[2023-08-30 21:57] LABS: Lactate 2.2 mmol/L (0.6-1.4)
[2023-08-30 22:27] LABS: COVID-19 PCR Negative (Negative); Influenza A PCR Negative (Negative); Influenza B PCR Negative (Negative); RSV PCR Negative (Negative)
[2023-08-30 22:36] LABS: Source Nasopharynx
[2023-08-30 22:42] LABS: Procalcitonin 0.1 ng/mL
[2023-08-30 22:57] LABS: Troponin I 84 ng/L (< or =60)
[2023-08-30] MEDS: Normal Saline 1,000 ML 75 ML IV (23:34)
--- NOTE | 2023-08-30 23:43 | ED.PROG_ITS ---
Date of service: 08/30/23 Time of Service: 23:43 Medical Decision Making This patient was signed out to me. Please see previous notes for H&P and initial eval. In brief, 77yo F with pacemaker, CHF, presented with hemoptysis and being treated for pneumonia and sepsis. Vital signs reassuring, lactate slightly elevated. Slightly elevated stable troponin in mid 80's, likely demand. Judicious fluid resuscitation given cardiac status. No beds at [facility] at this time; attempting to find accepting facility with capacity. Current plan to reach out to [facility]. If unable to place patient, may need to admit to med-surg here and board in the ED. [facility] [place] no capacity. Accepted at [facility] in [place] for the am; holding a bed, asked to call at [address] Bain for doc-to-doc. Discussed with Dr. Palacios overnight and agreed pt appropriate for their facility. Ordered am metoprolol and apixiban; will hold morning diuretics for now. Repeat troponin flat at 84, repeat lactate also unchanged at 2.2. Vital signs overnight remain reassuring, no tachycardia or hypotension. AM lactate trending upward to 2.6- lungs clear, no respiratory distress; will give additional 500cc IVF. Signed out to oncoming physician; plan to contact [facility] and speak to Dr. Bain after 0800, transfer pt to [facility]. Quality:[facility] Health Related Social Needs: No Data to Display Sign Out Sign Out Data: Sign Out Comment: pneumonia, sepsis, ckd, demand ischemia, pending admission vs transfer for [place] admission repeat lactate pending 3 hour Last updated by Alicia Maguire PA at 08/30/23 23:37 Sign Out Comment: 77yo F with pneumonia, hx CHF/pacer, accepted to [facility] with bed available at 8am. Call after 8 for doc-to-doc with Dr. Bain Last updated by Cary Calle MD at 08/31/23 06:19 Discharge Plan Disposition Patient Disposition: Transfer-Acute Inpatient Care Specific Acute Inpt Facility: Other Condition: Serious Discharge Details Chief Complaint: RespSymp Clinical Impression: CKD (chronic kidney disease), Elevated troponin, Sepsis, Pneumonia Primary Care Provider: Kimberly Nicole ED Provider: Cary Calle Home Meds and New Rx's Prescriptions: No Action (DME) diabetic extra depth shoes See Rx Instructions .Route .MEDSUPPLY Qty: 1 0RF Rx Instructions: As directed (DME) Dexcom G6 Sensor Device See Rx Instructions .MEDSUPPLY Qty: 3 12RF Rx Instructions: As directed (DME) Dexcom G6 Transmitter Device See Rx Instructions .MEDSUPPLY Qty: 1 3RF Rx Instructions: As directed insulin aspart U-100 [Novolog FlexPen U-100 Insulin] 100 unit/mL (3 mL) insulin pen See Rx Instructions subcut TID Qty: 15 5RF Rx Instructions: sliding scale with meals: use 2 units glucose 120-150; 4 units glucose 151- 200; 6 units 201-250; 8 units 251+ subcutaneously three times a day; acetaminophen [Tylenol] 325 mg tablet 325 - 650 mg PO Q4H PRN PRN (Reason: pain) Qty: 30 0RF magnesium chloride 64 mg tablet,delayed release (DR/EC) 64 mg PO BID Qty: 180 3RF metolazone 5 mg tablet 5 mg PO .COMPLEX Qty: 60 5RF Rx Instructions: Once weekly on Tuesday ([facility]) blood sugar diagnostic Strip See Dose Instructions .ROUTE .MEDSUPPLY Qty: 400 3RF Dose Instruction: As directed Rx Instructions: use tid and prn.Accu-Chek Smart View Test Strip simvastatin 10 mg tablet 10 mg PO QPM Qty: 90 3RF spironolactone 25 mg tablet 25 mg PO DAILY Qty: 90 1RF Patient Comments: TAKE ONE-HALF TABLET BY MOUTH EVERY DAY ([facility]) Dexcom G6 Actuarial Consultant Misc See Rx Instructions .MEDSUPPLY Qty: 1 0RF Rx Instructions: As directed metoprolol succinate 200 mg tablet extended release 24 hr 100 mg PO DAILY Patient Comments: TAKE ONE TABLET BY MOUTH EVERY DAY Rx Instructions: Decrease to 100mg daily [place] [facility] [place] [facility] 02/19/23. -hb sucralfate 1 gram tablet 1 g PO AC & HS Qty: 120 12RF (DME) pen needle, diabetic [BD Ultra-Fine Mini Pen Needle] 31 gauge x 3/16 needle See Rx Instructions .Route Qty: 100 12RF Rx Instructions: As directed qid levothyroxine 75 mcg tablet 37.5 mcg PO DAILY@0600 Qty: 15 3RF torsemide 20 mg tablet 40 mg PO DAILY Qty: 60 5RF insulin glargine 100 unit/mL (3 mL) insulin pen 20 unit subcut QPM Qty: 15 12RF colchicine 0.6 mg tablet 0.6 mg PO DAILY PRN (Reason: gout) Qty: 20 3RF clotrimazole 1 % cream 1 applic topical BID Qty: 45 2RF Rx Instructions: Apply to affected areas twice a day for 2-4wks Eliquis 5 mg tablet 5 mg PO BID Qty: 60 11RF potassium chloride 20 mEq tablet,ER particles/crystals 40 meq PO BIDWMEAL Qty: 120 5RF allopurinol 100 mg tablet 100 mg PO DAILY Qty: 90 3RF cholecalciferol (vitamin D3) 25 mcg (1,000 unit) Tablet 1,000 units PO DAILY Qty: 0 0RF Hold Instructions: Pt Stopped/Never Started cyanocobalamin (vitamin B-12) [Vitamin B-12] 500 mcg Tablet 1,000 mcg PO DAILY Qty: 60 0RF Hold Instructions: Pt Stopped/Never Started
[2023-08-31] VITALS (38 sets, daily range): BP systolic 91–165; BP diastolic 39–109; PULSE 0–96; RESP 14–31; TEMP 36.8; O2SAT 94–100
[2023-08-31 01:36] LABS: Lactate 2.2 mmol/L (0.6-1.4)
[2023-08-31 01:55] LABS: Troponin I 84 ng/L (< or =60)
[2023-08-31 05:40] LABS: Lactate 2.6 mmol/L (0.6-1.4)
[2023-08-31 06:00] LABS: Troponin I 75 ng/L (< or =60)
[2023-08-31] MEDS: Normal Saline 1,000 ML 75 ML IV (06:26)
[2023-08-31] MEDS: Levothyroxine 75 MCG TAB 37.5 MCG PO (06:26)
[2023-08-31 08:01] LABS: Bilirubin Negative (Negative); Blood Negative (Negative); Clarity Clear (Clear); Glucose Negative (Negative); Ketones Negative (Negative); Leukocyte Esterase Negative (Negative); Nitrite Negative (Negative); Specific Gravity 1.015 (1.005-1.025); Urobilinogen 0.2 mg/dL (Up to 0.2); pH 6.5 (5-8)
[2023-08-31] MEDS: Metoprolol CR 100 MG TABCR PO (08:15)
[2023-08-31] MEDS: Apixaban 5 MG TAB PO (08:15)
== END 2023-08-31 09:45 | disposition short-term general hospital (02) ==
PROVIDERS: Physician Assistant; Student in an Organized Health Care Education/Training Program; Emergency Provider Emergency Medicine; PCP Family Medicine
DX: A41.9 Sepsis, unspecified organism (principal); J18.8 Other pneumonia, unspecified organism; R04.2 Hemoptysis; I24.89 Other forms of acute ischemic heart disease; R79.89 Other specified abnormal findings of blood chemistry; I13.0 Hypertensive heart and chronic kidney disease with heart failure and stage 1 through stage 4 chronic kidney disease, or unspecified chronic kidney disease; I50.9 Heart failure, unspecified; N18.9 Chronic kidney disease, unspecified; E11.22 Type 2 diabetes mellitus with diabetic chronic kidney disease; E11.43 Type 2 diabetes mellitus with diabetic autonomic (poly)neuropathy; Z11.52 Encounter for screening for COVID-19; Z95.0 Presence of cardiac pacemaker; Z79.4 Long term (current) use of insulin; Z79.01 Long term (current) use of anticoagulants
CPT/HCPCS: 00123; 36415; 80053; 82962; 84145; 86850; 86900; 86901; 87040; 87637; 93005; 94640; 96365; 99285; 71046; 81003; 83605; 83880; 84484; 85025; 85379; 86870; 86880; 86885; 86905; 93010; 99284; J1815; J1956; J7512; J7613

== ENCOUNTER → 2023-09-06 09:33 | Outpatient (BNVA) | payer MEDICARE, SELFPAY | PROVIDERS: PCP Family Medicine; Visit Provider Internal Medicine Interventional Cardiology | DX: N18.4 Chronic kidney disease, stage 4 (severe) (principal); I50.32 Chronic diastolic (congestive) heart failure; I48.11 Longstanding persistent atrial fibrillation; I50.813 Acute on chronic right heart failure; Z79.899 Other long term (current) drug therapy; Z95.3 Presence of xenogenic heart valve; Z95.0 Presence of cardiac pacemaker; I44.2 Atrioventricular block, complete | CPT/HCPCS: 99213 ==

== ENCOUNTER 2023-09-25 17:44 | Inpatient (IN) | payer MEDICARE, SELFPAY ==
[2023-09-25] VITALS (46 sets, daily range): BP systolic 119–167; BP diastolic 44–94; PULSE 71–92; RESP 15–32; TEMP 36.3–36.7; O2SAT 86–96
--- NOTE | 2023-09-25 17:56 | ED.GENADUL_ITS ---
HPI General Date/Time Provider Initiated Documentation: 09/25/23 17:55 . HPI Narrative: 77 year-old female presents to ED today by POV/ambulating with a chief complaint of nausea/vomiting, abdominal pain, diarrhea with onset around noon today- has family contacts sick with a GI illness. Quality described as intractable nausea/vomiting, abdominal cramping, diarrhea, no radiation to fever, chest pain, endorses shortness of breath, has longstanding CHF. Severity is described as 8-9/10. Palliating factors include nothing helping at home. Provoking factors include nothing specific. Patient is anticoagulated on Eliquis. Related Data Home Medications Medication Instructions Recorded Confirmed acetaminophen 325 mg tablet 325 - 650 mg (1 - 2 x 325 mg) PO 05/24/18 09/25/23 (Tylenol) Q4H PRN PRN pain #30 tabs magnesium chloride 64 mg 64 mg PO BID #180 tabs 04/07/21 09/25/23 (magnesium chloride) tablet,delayed release cholecalciferol (vitamin D3) 25 1,000 units PO DAILY #0 tabs 06/30/22 09/25/23 mcg (1,000 unit) tablet metolazone 5 mg tablet 5 mg PO .COMPLEX #60 tabs 08/23/22 09/25/23 diabetic extra depth shoes #1 ea 10/13/22 09/14/23 blood sugar diagnostic #400 ea 11/20/22 09/14/23 simvastatin 10 mg tablet 10 mg PO QPM #90 tabs 12/09/22 09/25/23 cyanocobalamin (vitamin B-12) 500 1,000 mcg (2 x 500 mcg) PO DAILY 12/15/22 09/25/23 mcg tablet (Vitamin B-12) #60 tabs blood-glucose sensor (Dexcom G6 #3 ea 01/14/23 09/14/23 Sensor device) blood-glucose transmitter (Dexcom #1 ea 01/14/23 09/14/23 G6 Transmitter device) insulin aspart U-100 100 unit/mL See Rx Instructions subcut TID #15 01/14/23 09/25/23 (3 mL) subcutaneous pen (Novolog mL FlexPen U-100 Insulin aspart) spironolactone 25 mg tablet 25 mg PO DAILY #90 tabs 07/13/23 02/18/24 blood-glucose meter,continuous #1 ea 02/21/23 09/14/23 (Dexcom G6 Help Desk Consultant) metoprolol succinate 200 mg 100 mg PO DAILY 02/25/23 09/25/23 tablet,extended release 24 hr sucralfate 1 gram tablet 1 g PO AC & HS #120 tabs 03/07/23 09/25/23 pen needle, diabetic 31 gauge x #100 ea 04/13/23 09/14/23/16 (BD Ultra-Fine Mini Pen Needle) torsemide 20 mg tablet 40 mg (2 x 20 mg) PO DAILY #60 tabs 05/12/23 09/25/23 colchicine 0.6 mg tablet 0.6 mg PO DAILY PRN gout #20 tabs 07/07/23 09/25/23 clotrimazole 1 % topical cream 1 applic topical BID #45 grams 07/13/23 09/25/23 apixaban 5 mg tablet (Eliquis) 5 mg PO BID #60 tabs 07/14/23 09/25/23 potassium chloride 20 mEq 40 meq (2 x 20 mEq) PO BIDWMEAL 07/25/23 09/25/23 tablet,extended release(part/cryst) #120 tabs allopurinol 100 mg tablet 100 mg PO DAILY #90 tabs 08/11/23 09/25/23 levothyroxine 75 mcg tablet 37.5 mcg (1/2 x 75 mcg) PO 09/08/23 09/25/23 DAILY@0600 #15 tabs insulin glargine 100 unit/mL (3 25 unit (0.25 mL) subcut QPM #15 mL 09/14/23 09/25/23 mL) subcutaneous pen Previous Rx's Medication Instructions Recorded acetaminophen 325 mg tablet 325 - 650 mg (1 - 2 x 325 mg) PO 05/24/18 (Tylenol) Q4H PRN PRN pain #30 tabs magnesium chloride 64 mg 64 mg PO BID #180 tabs 04/07/21 (magnesium chloride) tablet,delayed release cholecalciferol (vitamin D3) 25 1,000 units PO DAILY #0 tabs 06/30/22 mcg (1,000 unit) tablet metolazone 5 mg tablet 5 mg PO .COMPLEX #60 tabs 08/23/22 diabetic extra depth shoes #1 ea 10/13/22 blood sugar diagnostic #400 ea 11/20/22 simvastatin 10 mg tablet 10 mg PO QPM #90 tabs 12/09/22 cyanocobalamin (vitamin B-12) 500 1,000 mcg (2 x 500 mcg) PO DAILY 12/15/22 mcg tablet (Vitamin B-12) #60 tabs blood-glucose sensor (Dexcom G6 #3 ea 01/14/23 Sensor device) blood-glucose transmitter (Dexcom #1 ea 01/14/23 G6 Transmitter device) insulin aspart U-100 100 unit/mL See Rx Instructions subcut TID #15 01/14/23 (3 mL) subcutaneous pen (Novolog mL FlexPen U-100 Insulin aspart) spironolactone 25 mg tablet 25 mg PO DAILY #90 tabs 02/17/23 blood-glucose meter,continuous #1 ea 02/21/23 (Dexcom G6 Help Desk Consultant) sucralfate 1 gram tablet 1 g PO AC & HS #120 tabs 03/07/23 pen needle, diabetic 31 gauge x #100 ea 04/13/2310/21 (BD Ultra-Fine Mini Pen Needle) torsemide 20 mg tablet 40 mg (2 x 20 mg) PO DAILY #60 tabs 05/12/23 colchicine 0.6 mg tablet 0.6 mg PO DAILY PRN gout #20 tabs 07/07/23 clotrimazole 1 % topical cream 1 applic topical BID #45 grams 07/13/23 apixaban 5 mg tablet (Eliquis) 5 mg PO BID #60 tabs 07/14/23 potassium chloride 20 mEq 40 meq (2 x 20 mEq) PO BIDWMEAL 07/25/23 tablet,extended release(part/cryst) #120 tabs allopurinol 100 mg tablet 100 mg PO DAILY #90 tabs 08/11/23 levothyroxine 75 mcg tablet 37.5 mcg (1/2 x 75 mcg) PO 09/08/23 DAILY@0600 #15 tabs insulin glargine 100 unit/mL (3 25 unit (0.25 mL) subcut QPM #15 mL 09/14/23 mL) subcutaneous pen Allergies Allergy/AdvReac Type Severity Reaction Status Date / Time ceftriaxone Allergy Intermediate Hives Verified 09/14/23 09:00 aspirin Allergy Hives Verified 09/14/23 09:00 Penicillins Allergy Verified 09/14/23 09:00 tetracycline Allergy Verified 09/14/23 09:00 adhesive AdvReac Intermediate Topical Verified 09/14/23 09:00 Irritation General Stated Complaint: Nausea/Vomit/Diar BROOKE: 3 Review of Systems All systems reviewed & are unremarkable except as noted in HPI and below Exam Narrative Exam Narrative: GENERAL APPEARANCE: Well-nourished, non-toxic, awake and alert, atraumatic, no acute distress. SKIN: Warm, pink, dry, intact, without rashes/lesions/ulcerations. HEAD: Normocephalic, atraumatic, normal hair distribution for gender/age. EYES: Pupils PERRLA, EOMs intact without nystagmus, normal conjunctiva, no exudates on lids/lashes. ENT: Nares patent, no circumoral cyanosis, no facial swelling NECK: Supple, trachea midline, painless cervical ROM. LUNGS/CHEST: Lungs CTA bilaterally- no rales at bases, labored respirations, normal A/P diameter, symmetrical expansion, no chest wall deformity HEART (CV/PV): Regular rate and rhythm with murmur of , 1+ peripheral edema, no JVD. ABDOMEN: Soft, non-distended, no guarding, epigastric and RLQ tenderness, non- peritoneal without rebound tenderness, no Rovsing's, no LLQ focal tenderness. MSK: Normal ROM, no swelling/deformity to bilateral UEs or LEs, moving all extremities without weakness, no cyanosis, spine midline without tenderness, normal curvature. NEURO: Mental Status AAOx4 - alert to person, place, time, events No facial droop, no forehead involvement. Motor: No focal weakness - strength 5/5 in bilateral UEs and LEs, proximal and distal, symmetric. Sensory: sensation intact to light touch globally. Gait NT. PSYCH: euthymic, cooperative, pleasant, appropriate speech Course Vital Signs Vital signs: Vital Signs Temperature 36.3 C L 09/25/23 17:45 Pulse 80 09/25/23 17:45 Respiratory Rate 20 09/25/23 17:45 Blood Pressure 160/65 H 09/25/23 17:45 Pulse Oximetry 95 09/25/23 17:45 Temperature 36.3 C L 09/25/23 17:45 Temperature Source Temporal Artery Scan 09/25/23 17:45 Pulse 80 09/25/23 17:45 Respiratory Rate 20 09/25/23 17:45 Blood Pressure 160/65 H 09/25/23 17:45 Blood Pressure Position Sitting 09/25/23 17:45 Pulse Oximetry 95 09/25/23 17:45 Oxygen Delivery Method Room Air 09/25/23 17:45 Oxygen Flow Rate 0 09/25/23 17:45 Pain Level 7 09/25/23 17:45 Medical Decision Making This dictation utilizes [id number] dictation software and may contain unedited grammatical errors. 77 y/o F presents to ED today with a chief complaint of nausea/vomiting, shortness of breath, diarrhea, family has GI bug- onset today around noon. Patient has longstanding CHF and complex medical history, frequent hospitalizations. Patients' medical history: CHF, insulin-dependent diabetes, implanted pacemaker due to history of heart block, history of GI bleeding, long- term use of Eliquis as well as antiarrhythmics for A-fib, GERD, post TAVR. Family and social history: lives at home with , is . Pertinent exam findings / vital signs include epigastric and right lower quadrant abdominal tenderness, mild peripheral edema suspect chronic in nature, heart murmur of AAS, no rales on initial auscultation, patient did become hypoxic after a very small amount of fluid. Differential / pathologies of concern include CHF exacerbation, dehydration, nausea vomiting, gastroenteritis, diarrhea. Diagnostic studies of: -CBC, CMP, troponin, BNP, EKG, CT abdomen pelvis, magnesium, lipase, lactate, blood cultures. Leukopenia chronically No profound anemia, ESR significantly elevated at 74 Initial lactate elevated 3.0, suspect dehydration and GI losses BUN elevated to 52 with a creatinine of 1.8, baseline appears to be 1.3 Magnesium 1.7 CRP 2.7 BNP 3053 Trace blood in the urine, no signs of UTI COVID flu and RSV negative EKG no stemi CTAP no acute emergent findings Interventions of: -IV Tylenol, IV Zofran, 3mg IV Morphine q3hr PRN, 250mL IVF here in ED. ED Course/Assessment/Plan: 77-year-old female with close family contacts with some sort of GI bug presents with intractable nausea and vomiting since noon with significant abdominal pain, she is at a baseline of quite poor health CHF, history of complete heart block with pacemaker implanted, stage IV CKD, type 2 diabetes mellitus-insulin- dependent, malignant hypertension, obstructive sleep apnea, diabetic neuropathy, severe aortic stenosis, history of GI bleeding, atrial fibrillation, GERD states she has her gallbladder but has had her appendix out. Labs are significant for severe exacerbation of her BNP, she did experience some shortness of breath after about 200 mL of fluid to try and replace her GI losses slowly, she is now 86% on room air but satting fine on 3 L oxygen by nasal cannula. She has no profound anemia, her ESR is significantly elevated at 74, her initial lactate is 3.0 likely in the setting of GI losses and dehydration versus sepsis with a leukopenia to effectively elevated BUN of 52 with mildly elevated creatinine of 1.8, her magnesium is mildly low at 1.7, she has not received IV repletion yet, her CRP is mildly elevated 2.7, urine studies are pending, she is COVID flu and RSV negative. Blood Cx's pending, no ABX administered yet CTAP no acute emergent pathology XR portable pending Patient states she wishes to be DNR/DNI. Trop initially 54, increased to 56, likely minor demand from renal issues and CHF exacerbation. Disposition of Gastroenteritis, CHF Exacerbation. Patient verbalized understanding of the plan and return to ED criteria and engaged in shared decision making. Medical Records Medical records reviewed: Yes I reviewed the patient's medical records. Imaging Data Radiologic Study: Attestation: I personally reviewed and interpreted this imaging study as follows: Imaging: CT Scan Radiologist's impression: Exam: CT Abdomen And Pelvis With Contrast Exam date and time: 09/25/2023 9:05 PM Age: 77 years old Clinical indication: Abdominal pain; Prior surgery; Surgery date: 6+ months; Surgery type: Hysterectomy, appendectomy, sigmoidectomy; Patient HX: Epigastric and rlq tenderness TECHNIQUE: Imaging protocol: Computed tomography of the abdomen and pelvis with contrast. Radiation optimization: All CT scans at this facility use at least one of these dose optimization techniques: automated exposure control; mA and/or kV adjustment per patient size (includes targeted exams where dose is matched to clinical indication); or iterative reconstruction. Contrast material: OMNIPAQUE 350; Contrast volume: 100 ml; Contrast route: INTRAVENOUS (IV); COMPARISON: CT ABDOMEN PELVIS WO 12/13/2021 1:58 PM FINDINGS: Lungs: The visualized lung bases are clear. Heart: Large amount of mitral annular calcification is again noted. There is a new implant of the distal interventricular septum. Liver: Normal. No mass. Gallbladder and bile ducts: Normal. No calcified stones. No ductal dilation. Pancreas: Normal. No ductal dilation. Spleen: Normal. No splenomegaly. Adrenal glands: Normal. No mass. Kidneys and ureters: Normal. No hydronephrosis. Stomach and bowel: Multiple diverticula in the sigmoid colon. Postsurgical changes of the rectosigmoid junction. No wall thickening or adjacent inflammation. Appendix: Post appendectomy Intraperitoneal space: Unremarkable. No free air. No significant fluid collection. Vasculature: Right external iliac artery stent. Lymph nodes: Unremarkable. No enlarged lymph nodes. Urinary bladder: Unremarkable as visualized. Reproductive: Uterus is surgically absent. Bones/joints: Stable grade 2 spondylolisthesis of L5 on S1. Scattered degenerative changes of the lumbar spine. No acute bone findings. Soft tissues: Unremarkable. IMPRESSION: Diverticulosis. No evidence of diverticulitis or other acute findings. Dictated and Authenticated by: Mg Servin MD. Ordering:TATIANNA Spears MD Lab Data Lab results reviewed: Yes I reviewed the patient's lab results. Labs: 09/25/23 22:18 Blood Blood Culture - Pending 09/25/23 22:18 Blood Blood Culture - Pending Laboratory Tests Range/Units 09/25/23 09/25/23 09/25/23 19:25 20:05 20:55 WBC (4.4-10.8) 10^3/uL 2.79 L RBC (3.93-5.22) 10^6/uL 4.60 Hgb (11.2-15.7) g/dL 11.7 Hct (36.0-46.0) % 38.7 MCV (80-95) fL 84 MCH (27.0-33.0) pg 25.4 L MCHC (32.0-36.0) % 30.2 L RDW (11.7-14.6) % 22.5 H Plt Count (130-400) 10^3/uL 225 MPV (8.0-11.0) fL 8.9 Immature Gran % 0.0 Neutrophils % 91.0 Lymphocytes % 5.0 Monocytes % 4.0 Eosinophils % 0.0 Basophils % 0.0 Nucleated RBC % (0.0-0.3) % 0.0 Absolute Neutrophils (1.2-6.7) 10^3/uL 2.54 Absolute Lymphocytes (1.2-3.4) 10^3/uL 0.14 L Absolute Monocytes (0.1-0.8) 10^3/uL 0.11 Absolute Eosinophils (0.0-0.7) 10^3/uL 0.00 Absolute Basophils (0.0-0.2) 10^3/uL 0.00 RBC Morphology See Below Polychromasia Present Anisocytosis 1+ ESR (0-30) mm/hr 74 H VBG pH (7.31-7.41) 7.39 VBG pCO2 (41-51) mmHg 40 L VBG pO2 mmHg 38 VBG HCO3 (23-28) mmol/L 25 VBG Total CO2 (24-29) mmol/L 23 L VBG O2 Saturation % 70 VBG Base Excess (-2-3) mmol/L -1 VBG Lactate (0.6-1.4) mmol/L 3.0 H* Sodium (136-145) mmol/L 138 Potassium (3.5-5.1) mmol/L 4.3 Chloride (98-107) mmol/L 100 Carbon Dioxide (21.0-32.0) mmol/L 23.6 Anion Gap (3-11) mmol/L 14.4 H BUN (7-18) mg/dL 52 H Creatinine (0.55-1.02) mg/dL 1.8 H Est GFR (CKD-EPI 2020) (mL/min/1.73m2) 28.84 Glucose (74-106) mg/dL 211 H Calcium (8.5-10.1) mg/dL 9.5 Magnesium (1.8-2.4) mg/dL 1.7 L Total Bilirubin (0.2-1.0) mg/dL 0.5 Conjugated Bilirubin (0.0-0.2) mg/dL 0.2 AST (15-37) U/L 25 ALT (14-59) U/L 18 Alkaline Phosphatase (46-116) U/L 86 Troponin I (< or =60) ng/L 54 56 C-Reactive Protein (<or=0.5) mg/dL 2.74 H NT-Pro-B Natriuret Pep (<300) pg/mL 3053 H Total Protein (6.4-8.2) g/dL 8.5 H Albumin (3.4-5.0) g/dL 3.5 Lipase (16-77) U/L 43 Procalcitonin ng/mL 0.1 COVID-19 Source Nasopharynx SARS-CoV-2 (PCR) (Negative) Negative Influenza Type A (PCR) (Negative) Negative Influenza Type B (PCR) (Negative) Negative RSV (PCR) (Negative) Negative Quality:SDOH Health Related Social Needs: No Data to Display PFSH All Active Problems (Updated 09/25/23 @ 22:43 by PARESH Alberts) Gastroenteritis (Acute) CHF exacerbation (Acute) Ischemia of finger (Acute) (HFpEF) heart failure with preserved ejection fraction (Acute) Cardiac pacemaker (Acute) 04/30/23 placed at [facility] 02/18/23 after AV node ablation causing CHB. Medtronic micra [id number] SERIAL # [id number] Complete heart block (Acute 02/2023) 02/19/23 Per [facility]. Completely dependent on ventricular pace maker. V paced leadless pacer placed at [facility]. 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 Obstructive sleep apnea syndrome (Chronic 09/26/12) DX SEP 2012 AT [facility]; wears CPAP machine. Hypothyroidism (Chronic 12/06/14) Hyperlipidemia (Acute) Essential hypertension (Chronic 08/13/13) Obesity, morbid (Chronic) a. BMI of 52 Medical History (Updated 09/25/23 @ 22:43 by PARESH Alberts) Pneumonia (~08/2023) Left lingula Encounter for insertion of cardiac resynchronization therapy pacemaker Right ventricular Per [facility] 02/19/23. -hb 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 tachycardia Diabetic neuropathy Pre-ulcerative corn or callous Bilateral bunions Severe aortic stenosis GI bleed had melena transiently in 02/2021; unable to be evaluated due to AV stenosis. Former smoker (08/16/14) 5 pack yr history Diverticulosis Peptic ulcer disease with hemorrhage hx x 3 Restless legs (01/18/13) sleep study low iron (not anemic) Osteoarthritis USP current use of antiarrhythmic medical therapy (08/21/13) Colon polyp (07/10/18) 12/19 tubular adenoma Atrial fibrillation (06/23/12) 02/19 start Tikosyn 06/21 and 11/20 recurrent 2013 ablation at [facility] echo 2012 at [facility], normal LVEF and valves 05/2021 RVR, s/p [id number] CV and change to amiodarone. Asthma Gastroesophageal reflux disease Surgical History Status post transcatheter aortic valve replacement (TAVR) using bioprosthesis (~04/2021) Complicated by extravasation of contrast on iliofemoral angiography. 2 covered stents placed in the artery EIA extending into the R SOFTWARE SPECIALIST History of open sigmoidectomy Status post abdominal hysterectomy Status post appendectomy Status post total bilateral knee replacement S/P colonoscopy (~07/10/18) History of esophagogastroduodenoscopy (EGD) (~05/2018) 07/10/18 Family History Mother , 65 Thoracic aneurysm, ruptured Personal history of malignant neoplasm LYMPHOMA Father , 64 Heart disease Myocardial infarction Stroke Maternal Grandfather , 80 Heart disease Stroke Paternal Grandfather , 65 Heart disease Maternal Grandmother , 83 Heart disease Paternal Grandmother , 40 Cancer Son No problems noted. Son No problems noted. 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 Pets and animals: Yes Pets and animals: dog(s) Sexually active: Yes Do you think of yourself as: straight/heterosexual Current gender identity: female What is your relationship status?: How often do you talk on the phone with friends or family?: twice per week How often do you get together with friends or relatives?: three or more times per week How often do you attend amish or pentecostal services?: 4 or more times per year Do you belong to any clubs or organized social groups?: no Panel score (0-1 are the most socially isolated patients): 3 What type of physical activity do you participate in: walking Duration: < 15 minutes/day Frequency: 1-2 times per week Radha/Confucianism: Sikh Special radha needs: No Seatbelt use: always Drive intox or ride w/intox 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: No Do you feel safe at home: Yes Do you feel safe in your relationship?: Yes Additional Social history: at bedside Discharge Plan Disposition Patient Disposition: Admit to [facility] Condition: Fair Discharge Details Clinical Impression: CHF exacerbation, Gastroenteritis Primary Care Provider: Kimberly Nicole ED Provider: Regan Deutsch Home Meds and New Rx's Prescriptions: No Action (DME) diabetic extra depth shoes See Rx Instructions .Route .MEDSUPPLY Qty: 1 0RF Rx Instructions: As directed (DME) Dexcom G6 Sensor Device See Rx Instructions .MEDSUPPLY Qty: 3 12RF Rx Instructions: As directed (DME) Dexcom G6 Transmitter Device See Rx Instructions .MEDSUPPLY Qty: 1 3RF Rx Instructions: As directed insulin aspart U-100 [Novolog FlexPen U-100 Insulin] 100 unit/mL (3 mL) insulin pen See Rx Instructions subcut TID Qty: 15 5RF Rx Instructions: sliding scale with meals: use 2 units glucose 120-150; 4 units glucose 151- 200; 6 units 201-250; 8 units 251+ subcutaneously three times a day; insulin glargine 100 unit/mL (3 mL) insulin pen 25 unit subcut QPM Qty: 15 12RF acetaminophen [Tylenol] 325 mg tablet 325 - 650 mg PO Q4H PRN PRN (Reason: pain) Qty: 30 0RF magnesium chloride 64 mg tablet,delayed release (DR/EC) 64 mg PO BID Qty: 180 3RF metolazone 5 mg tablet 5 mg PO .COMPLEX Qty: 60 5RF Rx Instructions: Once weekly on Tuesday (DME) blood sugar diagnostic Strip See Dose Instructions .ROUTE .MEDSUPPLY Qty: 400 3RF Dose Instruction: As directed Rx Instructions: use tid and prn.Accu-Chek Smart View Test Strip simvastatin 10 mg tablet 10 mg PO QPM Qty: 90 3RF spironolactone 25 mg tablet 25 mg PO DAILY Qty: 90 1RF Patient Comments: TAKE ONE-HALF TABLET BY MOUTH EVERY DAY (DME) Dexcom G6 Help Desk Consultant Misc See Rx Instructions .MEDSUPPLY Qty: 1 0RF Rx Instructions: As directed metoprolol succinate 200 mg tablet extended release 24 hr 100 mg PO DAILY Patient Comments: TAKE ONE TABLET BY MOUTH EVERY DAY Rx Instructions: Decrease to 100mg daily per [facility] Cardiology 02/19/23. -hb sucralfate 1 gram tablet 1 g PO AC & HS Qty: 120 12RF (DME) pen needle, diabetic [BD Ultra-Fine Mini Pen Needle] 31 gauge x 3/16 needle See Rx Instructions .Route Qty: 100 12RF Rx Instructions: As directed qid torsemide 20 mg tablet 40 mg PO DAILY Qty: 60 5RF colchicine 0.6 mg tablet 0.6 mg PO DAILY PRN (Reason: gout) Qty: 20 3RF clotrimazole 1 % cream 1 applic topical BID Qty: 45 2RF Hold Instructions: Prescription Finished Rx Instructions: Apply to affected areas twice a day for 2-4wks Eliquis 5 mg tablet 5 mg PO BID Qty: 60 11RF potassium chloride 20 mEq tablet,ER particles/crystals 40 meq PO BIDWMEAL Qty: 120 5RF allopurinol 100 mg tablet 100 mg PO DAILY Qty: 90 3RF levothyroxine 75 mcg tablet 37.5 mcg PO DAILY@0600 Qty: 15 3RF cholecalciferol (vitamin D3) 25 mcg (1,000 unit) Tablet 1,000 units PO DAILY Qty: 0 0RF Hold Instructions: Pt Stopped/Never Started cyanocobalamin (vitamin B-12) [Vitamin B-12] 500 mcg Tablet 1,000 mcg PO DAILY Qty: 60 0RF Hold Instructions: Pt Stopped/Never Started
--- NOTE | 2023-09-25 19:00 | DI.CT_ITS ---
Exam(s) CT ABDOMEN PELVIS W EXAM: CT ABDOMEN PELVIS W CLINICAL HISTORY: epigastric RLQ tenderness TECHNIQUE: Imaging Protocol: Axial computed tomography images with coronal and sagittal reformatted images were created and reviewed. CONTRAST MATERIAL: Intravenous: Omnipaque 350 Contrast volume:100 mL Oral: No COMPARISON: CT ABD PELVIS WITH CONTRAST from 08/05/[address] ABDOMEN PELVIS WO from 12/13/2021 FINDINGS: ABDOMEN: Lung Bases: Mitral valve calcification is present. Cardiomegaly. Liver: Normal density. No measurable mass. Portal, Superior Mesenteric, and Splenic Veins: Unremarkable. Gallbladder and Biliary Tract: No radiodense calculus or dilation. Pancreas: Normal density, no abnormal calcifications or inflammatory process. Spleen: Normal. Adrenals: No masses seen. Kidneys: Normal size, contour and axis. No radiodense stones or obstructive uropathy. No masses seen. Abdominal Aorta: Abdominal portion non-dilated. Atherosclerosis. There is a right external iliac art kenny stent. Bowel: There is diverticulosis in the colon. There is an anastomosis seen in the rectosigmoid colon. No evidence of diverticulitis. There is no evidence of bowel obstruction or bowel infarct wall thi ckening. No evidence of appendicitis. Peritoneal Cavity: No ascites, collection or mesenteric inflammatory response. No free air. Lymph Nodes: Within normal limits. Bones: Within normal limits for the patient's age. Five spondylolysis and grade 2 spondylolisthesis of L5 on S1. Soft Tissues: Unremarkable. PELVIS: Bladder: Symmetric distention, no gross wall thickening. Reproductive Organs: Status post hysterectomy. Lymph Nodes: Within normal limits. Bones: Within normal limits for the patient's age. IMPRESSION: 1. No acute abdominal or pelvic process. 2. Colonic diverticulosis and rectosigmoid anastomosis. No evidence of diverticulitis. RADIATION DOSE DELIVERED: 1,353.19mGy.cm Total DLP DATA REPOSITORY: All CT scans at this facility are submitted to the National Radiology Data Registry (NRDR) Dose Index Registry (DIR) with the [employer] ([employer]). RADIATION OPTIMIZATION: All CT scans at this facility use at least one of these dose optimization te chniques: automated exposure control; mA and/or kV adjustment per patient size (includes targeted exa ms where dose is matched to clinical indication); or iterative reconstruction.
[2023-09-25 19:31] LABS: BE (Venous) -1 mmol/L (-2-3); HCO3 (Venous) 25 mmol/L (23-28); O2 Sat (Venous) 70 %; TCO2 (Venous) 23 mmol/L (24-29); pCO2 (Venous) 40 mmHg (41-51); pH (Venous) 7.39 (7.31-7.41); pO2 (Venous) 38 mmHg
[2023-09-25] MEDS: ACETAMINOPHEN 1,000 MG/100 ML BTL 400 MG IVPB (19:33)
[2023-09-25] MEDS: Ondansetron 4 MG/2 ML VIAL IVP ×2 (19:33→22:17)
[2023-09-25 19:38] LABS: Abs Immature Grans 0.01 10^3/uL (0.0-0.06); HCT 38.7 % (36.0-46.0); HGB 11.7 g/dL (11.2-15.7); MCH 25.4 pg (27.0-33.0); MCHC 30.2 % (32.0-36.0); MCV 84 fL (80-95); MPV 8.9 fL (8.0-11.0); Platelet Count 225 10^3/uL (130-400); RDW 22.5 % (11.7-14.6); RDW-SD 67.6 fL; WBC 2.79 10^3/uL (4.4-10.8)
[2023-09-25 19:41] LABS: ESR 74 mm/hr (0-30)
[2023-09-25] MEDS: Normal Saline 1,000 ML 125 ML IV (19:46)
[2023-09-25 20:06] LABS: ALT 18 U/L (14-59); AST 25 U/L (15-37); Albumin 3.5 g/dL (3.4-5.0); Alkaline Phosphatase 86 U/L (46-116); Anion Gap 14.4 mmol/L (3-11); BUN 52 mg/dL (7-18); Bilirubin, Direct 0.2 mg/dL (0.0-0.2); Bilirubin, Total 0.5 mg/dL (0.2-1.0); CO2 23.6 mmol/L (21.0-32.0); CREATININE 1.8 mg/dL (0.55-1.02); Calcium 9.5 mg/dL (8.5-10.1); Chloride 100 mmol/L (98-107); Estimated GFR 28.84 (mL/min/1.73m2); Glucose 211 mg/dL (74-106); Lipase 43 U/L (16-77); Magnesium 1.7 mg/dL (1.8-2.4); NT-proBNP 3053 pg/mL (<300); Potassium 4.3 mmol/L (3.5-5.1); Sodium 138 mmol/L (136-145); Total Protein 8.5 g/dL (6.4-8.2); Troponin I 54 ng/L (< or =60)
[2023-09-25 20:07] LABS: C-Reactive Protein 2.74 mg/dL (<or=0.5)
[2023-09-25 20:13] LABS: Procalcitonin 0.1 ng/mL
[2023-09-25 20:24] LABS: Absolute Lymphocyte Count 0.14 10^3/uL (1.2-3.4); Absolute Monocyte Count 0.11 10^3/uL (0.1-0.8); Absolute Neutrophil Count 2.54 10^3/uL (1.2-6.7)
[2023-09-25 20:26] LABS: Anisocytosis 1+; Diff Comment Diff Reviewed; Polychromasia Present
[2023-09-25 20:57] LABS: COVID-19 PCR Negative (Negative); Influenza A PCR Negative (Negative); Influenza B PCR Negative (Negative); RSV PCR Negative (Negative)
[2023-09-25 21:00] LABS: Source Nasopharynx
[2023-09-25] MEDS: Omnipaque 350 MG/ML 100 ML BTL IJ (21:02)
[2023-09-25] MEDS: Normal Saline - Diluent 50 ML VIAL IJ (21:03)
[2023-09-25] MEDS: Normal Saline Flush 10 ML SYR IVP (21:05)
[2023-09-25 21:24] LABS: Troponin I 56 ng/L (< or =60)
--- NOTE | 2023-09-25 22:15 | DI.RAD_ITS ---
Exam(s) XR PORTABLE CHEST AP EXAM: XR PORTABLE CHEST AP CLINICAL HISTORY: hypoxia TECHNIQUE: 2D digital imaging was performed of the chest. One image was obtained. An AP view was ob tained. COMPARISON: CR,XR XR CHEST 2V PA LATERAL from 08/30/2023 FINDINGS: MEDIASTINUM: Normal. HEART: Cardiomegaly. Aortic valve replacement. PULMONARY VASCULATURE: Pulmonary venous congestion. LUNGS: Increased interstitial infiltrates in the lungs. PLEURAL SPACE: No pleural effusion or pneumothorax. BONE:Within normal limits for the patient's age. Degenerative changes seen in the right shoulder. OTHER FINDINGS:Normal. IMPRESSION: Mild cardiomegaly. Interstitial infiltrates bilaterally and pulmonary venous left emmanuel raising the q uestion of fluid overload/CHF. Please correlate clinically. DATA REPOSITORY: RADIATION DOSE DELIVERED:
--- NOTE | 2023-09-25 22:17 | DI.VRAD_ITS ---
PROCEDURE INFORMATION: Exam: CT Abdomen And Pelvis With Contrast Exam date and time: 09/25/2023 9:05 PM Age: 77 years old Clinical indication: Abdominal pain; Prior surgery; Surgery date: 6+ months; Surgery type: Hysterectomy, appendectomy, sigmoidectomy; Patient HX: Epigastric and rlq tenderness TECHNIQUE: Imaging protocol: Computed tomography of the abdomen and pelvis with contrast. Radiation optimization: All CT scans at this facility use at least one of these dose optimization techniques: automated exposure control; mA and/or kV adjustment per patient size (includes targeted exams where dose is matched to clinical indication); or iterative reconstruction. Contrast material: OMNIPAQUE 350; Contrast volume: 100 ml; Contrast route: INTRAVENOUS (IV); COMPARISON: CT ABDOMEN PELVIS WO 12/13/2021 1:58 PM FINDINGS: Lungs: The visualized lung bases are clear. Heart: Large amount of mitral annular calcification is again noted. There is a new implant of the distal interventricular septum. Liver: Normal. No mass. Gallbladder and bile ducts: Normal. No calcified stones. No ductal dilation. Pancreas: Normal. No ductal dilation. Spleen: Normal. No splenomegaly. Adrenal glands: Normal. No mass. Kidneys and ureters: Normal. No hydronephrosis. Stomach and bowel: Multiple diverticula in the sigmoid colon. Postsurgical changes of the rectosigmoid junction. No wall thickening or adjacent inflammation. Appendix: Post appendectomy Intraperitoneal space: Unremarkable. No free air. No significant fluid collection. Vasculature: Right external iliac artery stent. Lymph nodes: Unremarkable. No enlarged lymph nodes. Urinary bladder: Unremarkable as visualized. Reproductive: Uterus is surgically absent. Bones/joints: Stable grade 2 spondylolisthesis of L5 on S1. Scattered degenerative changes of the lumbar spine. No acute bone findings. Soft tissues: Unremarkable. IMPRESSION: Diverticulosis. No evidence of diverticulitis or other acute findings. Dictated and Authenticated by: Mg Servin MD. Ordering:TATIANNA Spears MD
[2023-09-25 22:27] LABS: Bilirubin Negative (Negative); Blood Trace-intact (Negative); Clarity Clear (Clear); Glucose Negative (Negative); Ketones Negative (Negative); Leukocyte Esterase Negative (Negative); Nitrite Negative (Negative); Urobilinogen 0.2 mg/dL (Up to 0.2); pH 5.5 (5-8)
[2023-09-25 22:29] LABS: Epithelial Cells Negative HPF (Negative); RBC 0-2 HPF (0-2); WBC 0-2 HPF (0-5)
[2023-09-25 22:30] LABS: Bacteria Negative HPF (Negative); C & S Indicated? No; Casts Negative LPF (Negative); Crystals Negative HPF (Negative); Mucus Negative (Negative)
[2023-09-25] MEDS: MORPHine 4 MG/ML SYR 3 MG IVP (22:35)
--- NOTE | 2023-09-25 22:48 | DI.VRAD_ITS ---
PROCEDURE INFORMATION: Exam: XR Chest Exam date and time: 09/25/2023 10:34 PM Age: 77 years old Clinical indication: Other: Hypoxia TECHNIQUE: Imaging protocol: Radiologic exam of the chest. Views: 1 view. COMPARISON: CR XR CHEST 2V PA LATERAL 08/30/2023 8:27 PM FINDINGS: Tubes, catheters and devices: Electronic device overlies the left heart. Lungs: No consolidation. Pleural spaces: No pleural effusion. No pneumothorax. Heart/Mediastinum: Status post TAVR. Cardiac silhouette is at the upper limits of normal. Vasculature: Calcifications of the aortic arch. Bones/joints: No significant abnormality IMPRESSION: No acute cardiopulmonary disease Dictated and Authenticated by: Mg Servin MD. Ordering:TATIANNA Spears MD
--- NOTE | 2023-09-25 23:25 | HPE_ITS ---
Date of service: 09/25/23 Time of Service: 23:25 Assessment and Plan Assessment and plan (1) Acute on chronic heart failure with preserved ejection fraction (HFpEF): Status: Acute Assessment and plan: Patient initially presented to the emergency department she was 95% oxygen saturation on room air and after 300 mL bolus of IV fluids she developed worsening dyspnea and hypoxemia. Chest x-ray suggestive of CHF as does her pulmonary ultrasound and echocardiogram. IV fluids have been discontinued and patient has been started on IV Lasix. We will continue her spironolactone. Serial troponins been negative for acute ischemic event. We will check an echocardiogram in the morning and further adjust her diuretics tomorrow morning. (2) Gastroenteritis: Status: Acute Assessment and plan: Supportive care with antiemetics and pain medications. Will check stool for bacterial antigens as well as C. difficile. She has been afebrile negative procalcitonin level have held off giving her antibiotics at this point. Most likely this is a viral gastroenteritis. Ordinarily I would be given her IV fluids to keep her hydrated but she seems to be volume overloaded at the present time due to exacerbation of her heart failure. (3) Cor pulmonale (chronic): Status: Acute (4) CKD (chronic kidney disease) stage 4, GFR 15-29 ml/min: Status: Acute Assessment and plan: Initially it appeared that her current BUN/creatinine were higher than her last readings however when looking back at her overall BUN and creatinine over the last 1 to 2 years she is probably at her baseline. She has stage IV chronic kidney disease. I did suggest placement of Moore catheter while we are diuresing her but patient declined. Nurses have applied an external catheter with a pure wick. (5) Type 2 diabetes mellitus without complication, with long-term current use of insulin: Status: Acute Assessment and plan: For tonight have only ordered half her usual dose of Lantus and put her on insulin sensitive sliding scale. Tomorrow night we can resume her usual dose of her Lantus as long as she is eating adequately and taking enough liquids. 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 Once she is medically stable we will get physical therapy involved to evaluate and begin treatment for generalized weakness and deconditioning. Anticipate discharge in a couple of days once her CHF is resolved and her gastroenteritis has improved. History of Present Illness History of Present Illness Chief Complaint: Vomiting since noon Narrative: 77-year-old female with history of atrial fibrillation with previous cardioversions and ablation is most recent AV chris ablation and subsequent permanent pacemaker with a leadless pacemaker was performed in February 2023. She is followed by Dr. Frank Aguilar, EP screen vent binder at [facility]. She is also followed by Dr. Sheehan, heart failure specialist from [facility]. The patient also has comorbiditites of severe aortic stenosis for which she had a TAVR and HFPEF w/ LVEF 56%, moderate LVH, dilated RV w/ preserved RV fxn, PHTN (RVSP 51 mm), no stenosis of her bioprosthetic AV, heavy MAC w/ moderate MR. She presents to hospital with acute onset of vomiting beginning around noon she has had multiple episodes of emesis but no hematemesis. She also had multiple bouts of watery diarrhea. All of her family members including her and 2 of her sons and grandchildren have similar gastroenteritis symptoms. On arrival to the emergency department she was afebrile 36.3 BP 160/65 pulse 80 respirations 20. Evaluation emergency department clued routine labs as well as contrast-enhanced CT scan of her abdomen pelvis and EKG and chest x-ray. Labs are remarkable for a leukopenia with a white cell count of 2790 but no anemia hemoglobin 11.7 grams normal platelet count 225,000. Chemistry panel was remarkable for an elevated BUN and creatinine of 52 and 1.8 however upon further review of her average BID creatinine over the last 2 years this is fairly close to her baseline. Baseline BUN around 50 her baseline creatinine between 1.8 and 2.0. Magnesium is low at 1.7 transaminases were normal lipase was normal procalcitonin was 0.1. proBNP is elevated at 3053. Serial troponin I levels have been normal at 54, 56, 60. CT scan demonstrated diverticulosis but no diverticulitis. Liver appeared to be normal pancreas and spleen also appeared to be normal and kidneys were normal with no hydronephrosis. She had no wall thickening or inflammation of the colon but has multiple diverticuli in the sigmoid colon. Chest x-ray was reported as showing no acute cardiopulmonary disease however by my reading she has an enlarged heart and is status post TAVR. Lung parenchyma appears to have increased interstitial markings suggestive of CHF. I did not see pleural effusions. POCUS exam of the lungs was performed and she has bilateral B-lines pattern in the lower to mid lung zones. Echocardiogram shows increased left-sided filling pressures as evidenced by an E/A-wave greater than 2.0. Her IVC is greater than 2.1 cm and has less than 50% collapsibility suggesting elevated right atrial pressures. Patient is being admitted for acute gastroenteritis along with acute exacerbation of chronic heart failure with preserved ejection fraction and cor pulmonale. Review of Systems Constitutional Constitutional: Reports body ache(s), Reports chills, Denies fever(s) and Reports poor appetite Cardiovascular Cardiovascular: Denies chest pain, Reports dyspnea and Reports dyspnea on exertion Respiratory Respiratory: Reports cough, Denies excessive phlegm production, Reports dyspnea and Reports dyspnea on exertion Gastrointestinal Gastrointestinal: Reports as per HPI Genitourinary Genitourinary: Reports system reviewed and no additional complaints, except as documented Musculoskeletal Musculoskeletal: Reports myalgias Integumentary/Breasts Skin/Breast: Reports system reviewed and no additional complaints, except as documented Neurologic Neurologic: Reports paresthesias Endocrine Endocrine: Reports system reviewed and no additional complaints, except as documented Hematologic/Lymphatic Hematologic/Lymphatic: Reports system reviewed and no additional complaints, except as documented PFSH All Active Problems (Updated 09/26/23 @ 01:40 by Yan Caba MD) Discharge planning issues (Acute) Cor pulmonale (chronic) (Acute) Acute on chronic heart failure with preserved ejection fraction (HFpEF) (Acute) Gastroenteritis (Acute) CHF exacerbation (Acute) Ischemia of finger (Acute) (HFpEF) heart failure with preserved ejection fraction (Acute) Cardiac pacemaker (Acute) 04/30/23 placed at [facility] 02/18/23 after AV node ablation causing CHB. Med[employer]onic micra [id number] SERIAL # [id number] Complete heart block (Acute 02/2023) 02/19/23 Per [facility]. Completely dependent on ventricular pace maker. V paced leadless pacer placed at [facility]. 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 Obstructive sleep apnea syndrome (Chronic 09/26/12) DX SEP 2012 AT [facility]; wears CPAP machine. Hypothyroidism (Chronic 12/06/14) Hyperlipidemia (Acute) Essential hypertension (Chronic 08/13/13) Obesity, morbid (Chronic) a. BMI of 52 Medical History (Updated 09/26/23 @ 01:40 by Yan Caba MD) Pneumonia (~08/2023) Left lingula Encounter for insertion of cardiac resynchronization therapy pacemaker Right ventricular Per [facility] 02/19/23. -hb 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 tachycardia Diabetic neuropathy Pre-ulcerative corn or callous Bilateral bunions Severe aortic stenosis GI bleed had melena transiently in 02/2021; unable to be evaluated due to AV stenosis. Former smoker (08/16/14) 5 pack yr history Diverticulosis Peptic ulcer disease with hemorrhage hx x 3 Restless legs (01/18/13) sleep study low iron (not anemic) Osteoarthritis skilled nursing current use of antiarrhythmic medical therapy (08/21/13) Colon polyp (07/10/18) 12/19 tubular adenoma Atrial fibrillation (06/23/12) 02/19 start Tikosyn 06/21 and 11/20 recurrent 2012 ablation at [facility] echo 2012 at [facility], normal LVEF and valves 05/2021 RVR, s/p [id number] CV and change to amiodarone. Asthma Gastroesophageal reflux disease Surgical History Status post transcatheter aortic valve replacement (TAVR) using bioprosthesis (~04/2021) Complicated by extravasation of contrast on iliofemoral angiography. 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 Son No problems noted. 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 Pets and animals: Yes Pets and animals: dog(s) Sexually active: Yes Do you think of yourself as: straight/heterosexual Current gender identity: female What is your relationship status?: How often do you talk on the phone with friends or family?: twice per week How often do you get together with friends or relatives?: three or more times per week How often do you attend oriental orthodox or buddhist services?: 4 or more times per year Do you belong to any clubs or organized social groups?: no Panel score (0-1 are the most socially isolated patients): 3 What type of physical activity do you participate in: walking Duration: < 15 minutes/day Frequency: 1-2 times per week Radha/Yarsani: Anabaptism Special radha needs: No Seatbelt use: always Drive intox or ride w/intox furniture delivery driver: No Do you feel safe at home: Yes Do you feel safe in your relationship?: Yes Additional Social history: at bedside Meds Allergies and Home Medications Allergies Allergy/AdvReac Type Severity Reaction Status Date / Time ceftriaxone Allergy Intermediate Hives Verified 09/14/23 09:00 aspirin Allergy Hives Verified 09/14/23 09:00 Penicillins Allergy Verified 09/14/23 09:00 tetracycline Allergy Verified 09/14/23 09:00 adhesive AdvReac Intermediate Topical Verified 09/14/23 09:00 Irritation Home Medications Medication Instructions Recorded Confirmed Type acetaminophen 325 mg tablet 325 - 650 mg (1 - 2 x 325 mg) PO 05/24/18 09/25/23 Rx (Tylenol) Q4H PRN PRN pain #30 tabs magnesium chloride 64 mg 64 mg PO BID #180 tabs 04/07/21 09/25/23 Rx (magnesium chloride) tablet,delayed release cholecalciferol (vitamin D3) 25 1,000 units PO DAILY #0 tabs 06/30/22 09/25/23 Rx mcg (1,000 unit) tablet metolazone 5 mg tablet 5 mg PO .COMPLEX #60 tabs 08/23/22 09/25/23 Rx diabetic extra depth shoes #1 ea 10/13/22 09/14/23 Rx blood sugar diagnostic #400 ea 11/20/22 09/14/23 Rx simvastatin 10 mg tablet 10 mg PO QPM #90 tabs 12/09/22 09/25/23 Rx cyanocobalamin (vitamin B-12) 500 1,000 mcg (2 x 500 mcg) PO DAILY 12/15/22 09/25/23 Rx mcg tablet (Vitamin B-12) #60 tabs blood-glucose sensor (Dexcom G6 #3 ea 01/14/23 09/14/23 Rx Sensor device) blood-glucose transmitter (Dexcom #1 ea 01/14/23 09/14/23 Rx G6 Transmitter device) insulin aspart U-100 100 unit/mL See Rx Instructions subcut TID #15 01/14/23 09/25/23 Rx (3 mL) subcutaneous pen (Novolog mL FlexPen U-100 Insulin aspart) spironolactone 25 mg tablet 25 mg PO DAILY #90 tabs 02/17/23 09/25/23 Rx blood-glucose meter,continuous #1 ea 02/21/23 09/14/23 Rx (Dexcom G6 Ice Resurfacing Machine Operators) metoprolol succinate 200 mg 100 mg PO DAILY 02/25/23 09/25/23 History tablet,extended release 24 hr sucralfate 1 gram tablet 1 g PO AC & HS #120 tabs 03/07/23 09/25/23 Rx pen needle, diabetic 31 gauge x #100 ea 04/13/23 09/14/23 Rx 3/16 (BD Ultra-Fine Mini Pen Needle) torsemide 20 mg tablet 40 mg (2 x 20 mg) PO DAILY #60 tabs 05/12/23 09/25/23 Rx colchicine 0.6 mg tablet 0.6 mg PO DAILY PRN gout #20 tabs 07/07/23 09/25/23 Rx clotrimazole 1 % topical cream 1 applic topical BID #45 grams 07/13/23 09/25/23 Rx apixaban 5 mg tablet (Eliquis) 5 mg PO BID #60 tabs 07/14/23 09/25/23 Rx potassium chloride 20 mEq 40 meq (2 x 20 mEq) PO BIDWMEAL 07/25/23 09/25/23 Rx tablet,extended release(part/cryst) #120 tabs allopurinol 100 mg tablet 100 mg PO DAILY #90 tabs 08/11/23 09/25/23 Rx levothyroxine 75 mcg tablet 37.5 mcg (1/2 x 75 mcg) PO 09/08/23 09/25/23 Rx DAILY@0600 #15 tabs insulin glargine 100 unit/mL (3 25 unit (0.25 mL) subcut QPM #15 mL 09/14/23 09/25/23 Rx mL) subcutaneous pen Exam Narrative Exam Narrative: Morbidly obese female who appears to be ill she is alert and oriented x 3 Neck is supple difficult to discern JVD due to her short neck and obesity normal carotid pulses no bruits Lungs are clear anteriorly however posterior she has some basilar rales Heart is regular rate and rhythm with a systolic murmur over the aortic outflow tract louder murmur over the apex consistent with mitral regurgitation no palpable thrill or heave Abdomen obese with active bowel sounds throughout no bruits Extremities without peripheral cyanosis is a trace of edema over the lower pretibial surface and ankles Neurologic exam no focal motor deficits patient reports tingling and burning in her toes that is chronic sensation intact to gross tactile Results Labs 09/25/23 19:25 09/25/23 19:25 Labs: Laboratory Results - last 24 hr 09/25/23 09/25/23 09/25/23 19:25 20:05 20:55 WBC 2.79 L RBC 4.60 Hgb 11.7 Hct 38.7 MCV 84 MCH 25.4 L MCHC 30.2 L RDW 22.5 H Plt Count 225 MPV 8.9 Immature Gran % 0.0 Neutrophils % 91.0 Lymphocytes % 5.0 Monocytes % 4.0 Eosinophils % 0.0 Basophils % 0.0 Nucleated RBC % 0.0 Absolute Neutrophils 2.54 Absolute Lymphocytes 0.14 L Absolute Monocytes 0.11 Absolute Eosinophils 0.00 Absolute Basophils 0.00 RBC Morphology See Below Polychromasia Present Anisocytosis 1+ ESR 74 H VBG pH 7.39 VBG pCO2 40 L VBG pO2 38 VBG HCO3 25 VBG Total CO2 23 L VBG O2 Saturation 70 VBG Base Excess -1 VBG Lactate 3.0 H* Sodium 138 Potassium 4.3 Chloride 100 Carbon Dioxide 23.6 Anion Gap 14.4 H BUN 52 H Creatinine 1.8 H Est GFR (CKD-EPI 2020) 28.84 Glucose 211 H Calcium 9.5 Magnesium 1.7 L Total Bilirubin 0.5 Conjugated Bilirubin 0.2 AST 25 ALT 18 Alkaline Phosphatase 86 Troponin I 54 56 C-Reactive Protein 2.74 H NT-Pro-B Natriuret Pep 3053 H Total Protein 8.5 H Albumin 3.5 Lipase 43 Procalcitonin 0.1 Urine Color Urine Clarity Urine pH Ur Specific [place] Urine Protein Urine Ketones Urine Blood Urine Nitrite Urine Bilirubin Urine Urobilinogen Ur Leukocyte Esterase Urine RBC Urine WBC Ur Epithelial Cells Urine Crystals Urine Bacteria Urine Casts Urine Mucus Ur Culture Indicated? Urine Glucose COVID-19 Source Nasopharynx SARS-CoV-2 (PCR) Negative Influenza Type A (PCR) Negative Influenza Type B (PCR) Negative RSV (PCR) Negative 09/25/23 22:18 WBC RBC Hgb Hct MCV MCH MCHC RDW Plt Count MPV Immature Gran % Neutrophils % Lymphocytes % Monocytes % Eosinophils % Basophils % Nucleated RBC % Absolute Neutrophils Absolute Lymphocytes Absolute Monocytes Absolute Eosinophils Absolute Basophils RBC Morphology Polychromasia Anisocytosis ESR VBG pH VBG pCO2 VBG pO2 VBG HCO3 VBG Total CO2 VBG O2 Saturation VBG Base Excess VBG Lactate Sodium Potassium Chloride Carbon Dioxide Anion Gap BUN Creatinine Est GFR (CKD-EPI 2020) Glucose Calcium Magnesium Total Bilirubin Conjugated Bilirubin AST ALT Alkaline Phosphatase Troponin I C-Reactive Protein NT-Pro-B Natriuret Pep Total Protein Albumin Lipase Procalcitonin Urine Color Yellow Urine Clarity Clear Urine pH 5.5 Ur Specific [place] 1.010 Urine Protein Negative Urine Ketones Negative Urine Blood Trace-intact H Urine Nitrite Negative Urine Bilirubin Negative Urine Urobilinogen 0.2 Ur Leukocyte Esterase Negative Urine RBC 0-2 Urine WBC 0-2 Ur Epithelial Cells Negative Urine Crystals Negative Urine Bacteria Negative Urine Casts Negative Urine Mucus Negative Ur Culture Indicated? No Urine Glucose Negative COVID-19 Source SARS-CoV-2 (PCR) Influenza Type A (PCR) Influenza Type B (PCR) RSV (PCR) Last Vital Signs Temp 36.3 C L 09/25/23 17:45 Pulse 76 09/25/23 21:30 Resp 15 09/25/23 21:40 BP 135/52 L 09/25/23 21:47 Pulse Ox 86 L 09/25/23 22:03 Time Spent Time spent with Patient: 55-74 minutes Time was spent: preparing to see the patient(eg.review tests), obtaining and/or reviewing separately otained hiistory, ordering medications,tests, procedures, referring, communicating with other health career development counselor, indepentently interpreting results, counseling the patient and care coordination
--- NOTE | 2023-09-25 23:51 | W.PC.ACHO ---
Registration Status: ADM IN Primary Language: Preferred Language: Wolof ED Information & Data Chief Complaint Nausea/Vomit/Diar 09/25/23 19:06 Chief Complaint Nausea/Vomit/Diar 09/25/23 17:56 Triage Note Vomiting since noon- unable 09/25/23 17:45 to stop. 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 medical therapy (08/21/13) Colon polyp (07/10/18) Atrial fibrillation (06/23/12) Asthma Gastroesophageal reflux disease (Last Reviewed 09/06/23 @ 10:35 by Chloé Tatum MD) Status post transcatheter aortic valve replacement (TAVR) using bioprosthesis (~04/2021) History of open sigmoidectomy Status post abdominal hysterectomy Status post appendectomy Status post total bilateral knee replacement S/P colonoscopy (~07/10/18) History of esophagogastroduodenoscopy (EGD) (~05/2018) Most Recent Vital Signs Temperature 36.3 C L 09/25/23 17:45 Temperature Source Temporal Artery Scan 09/25/23 17:45 Pulse 76 09/25/23 21:30 Pulse 77 09/25/23 21:40 Respiratory Rate 15 09/25/23 21:40 Respiratory Effort Normal, Non-Labored 09/25/23 19:06 Blood Pressure 135/52 L 09/25/23 21:47 Blood Pressure Mean 79 09/25/23 21:30 Blood Pressure Position Sitting 09/25/23 17:45 Pulse Oximetry 86 L 09/25/23 22:03 Oxygen Delivery Method Room Air 09/25/23 22:03 Oxygen Flow Rate 0 09/25/23 22:03 Pain Level 7 09/25/23 19:33 Allergies ceftriaxone Allergy (Intermediate, Verified 09/14/23 09:00) Hives aspirin Allergy (Verified 09/14/23 09:00) Hives Penicillins Allergy (Verified 09/14/23 09:00) tetracycline Allergy (Verified 09/14/23 09:00) adhesive Adverse Reaction (Intermediate, Verified 09/14/23 09:00) Topical Irritation Pt develops redness, swelling, itching, irritation, pain an occassionally blisters and ulceration. Precautions Isolation Standard precaution 09/25/23 19:06 Active Medications Generic Name Dose Route Start Last Admin Trade Name Freq PRN Reason Stop Dose Admin Sodium Chloride 1,000 mls @ 125 mls/hr 09/25/23 19:15 09/25/23 19:46 Saline 1000ml Bag IV 125 mls/hr INFUSION TAVO Administration Iohexol 100 ml 09/25/23 21:15 09/25/23 21:02 Omnipaque 350 Mg/Ml 100 Ml Btl IJ 10/25/23 23:59 100 ml DIRECTED TAVO Administration Morphine Sulfate 3 mg 09/25/23 22:25 09/25/23 22:35 Morphine 4 Mg/Ml Syr IVP 3 mg Q3H PRN PRN Administration Sodium Chloride 50 ml 09/25/23 21:15 09/25/23 21:03 Normal Saline - Diluent 50 Ml Vial IJ 50 ml .FOR DI USE TAVO Administration Sodium Chloride 0 ml 09/25/23 21:04 09/25/23 21:05 Normal Saline Flush 10 Ml Syr IVP 10 ml PRN PRN Administration IV IV Catheter Type [Left Peripheral IV Antecubital] Diagnostics 09/25/23 09/25/23 09/25/23 Range/Units 22:18 20:55 20:05 WBC (4.4-10.8) 10^3/uL RBC (3.93-5.22) 10^6/uL Hgb (11.2-15.7) g/dL Hct (36.0-46.0) % MCV (80-95) fL MCH (27.0-33.0) pg MCHC (32.0-36.0) % RDW (11.7-14.6) % Plt Count (130-400) 10^3/uL MPV (8.0-11.0) fL Immature Gran % Neutrophils % Lymphocytes % Monocytes % Eosinophils % Basophils % Nucleated RBC % (0.0-0.3) % Absolute Neutrophils (1.2-6.7) 10^3/uL Absolute Lymphocytes (1.2-3.4) 10^3/uL Absolute Monocytes (0.1-0.8) 10^3/uL Absolute Eosinophils (0.0-0.7) 10^3/uL Absolute Basophils (0.0-0.2) 10^3/uL RBC Morphology Polychromasia Anisocytosis ESR (0-30) mm/hr VBG pH (7.31-7.41) VBG pCO2 (41-51) mmHg VBG pO2 mmHg VBG HCO3 (23-28) mmol/L VBG Total CO2 (24-29) mmol/L VBG O2 Saturation % VBG Base Excess (-2-3) mmol/L VBG Lactate (0.6-1.4) mmol/L Sodium (136-145) mmol/L Potassium (3.5-5.1) mmol/L Chloride (98-107) mmol/L Carbon Dioxide (21.0-32.0) mmol/L Anion Gap (3-11) mmol/L BUN (7-18) mg/dL Creatinine (0.55-1.02) mg/dL Est GFR (CKD-EPI 2020) (mL/min/1.73m2) Glucose (74-106) mg/dL Calcium (8.5-10.1) mg/dL Magnesium (1.8-2.4) mg/dL Total Bilirubin (0.2-1.0) mg/dL Conjugated Bilirubin (0.0-0.2) mg/dL AST (15-37) U/L ALT (14-59) U/L Alkaline Phosphatase (46-116) U/L Troponin I 56 (< or =60) ng/L C-Reactive Protein (<or=0.5) mg/dL NT-Pro-B Natriuret Pep (<300) pg/mL Total Protein (6.4-8.2) g/dL Albumin (3.4-5.0) g/dL Lipase (16-77) U/L Procalcitonin ng/mL Urine Color Yellow (Yellow) Urine Clarity Clear (Clear) Urine pH 5.5 (5-8) Ur Specific Kaplan 1.010 (1.005-1.025) Urine Protein Negative (Neg-Trace) mg/dL Urine Ketones Negative (Negative) mg/dL Urine Blood Trace-intact H (Negative) Urine Nitrite Negative (Negative) Urine Bilirubin Negative (Negative) Urine Urobilinogen 0.2 (Up to 0.2) mg/dL Ur Leukocyte Esterase Negative (Negative) Urine RBC 0-2 (0-2) HPF Urine WBC 0-2 (0-5) HPF Ur Epithelial Cells Negative (Negative) HPF Urine Crystals Negative (Negative) HPF Urine Bacteria Negative (Negative) HPF Urine Casts Negative (Negative) LPF Urine Mucus Negative (Negative) Ur Culture Indicated? No Urine Glucose Negative (Negative) mg/dL COVID-19 Source Nasopharynx SARS-CoV-2 (PCR) Negative (Negative) Influenza Type A (PCR) Negative (Negative) Influenza Type B (PCR) Negative (Negative) RSV (PCR) Negative (Negative) 09/25/23 Range/Units 19:25 WBC 2.79 L (4.4-10.8) 10^3/uL RBC 4.60 (3.93-5.22) 10^6/uL Hgb 11.7 (11.2-15.7) g/dL Hct 38.7 (36.0-46.0) % MCV 84 (80-95) fL MCH 25.4 L (27.0-33.0) pg MCHC 30.2 L (32.0-36.0) % RDW 22.5 H (11.7-14.6) % Plt Count 225 (130-400) 10^3/uL MPV 8.9 (8.0-11.0) fL Immature Gran % 0.0 Neutrophils % 91.0 Lymphocytes % 5.0 Monocytes % 4.0 Eosinophils % 0.0 Basophils % 0.0 Nucleated RBC % 0.0 (0.0-0.3) % Absolute Neutrophils 2.54 (1.2-6.7) 10^3/uL Absolute Lymphocytes 0.14 L (1.2-3.4) 10^3/uL Absolute Monocytes 0.11 (0.1-0.8) 10^3/uL Absolute Eosinophils 0.00 (0.0-0.7) 10^3/uL Absolute Basophils 0.00 (0.0-0.2) 10^3/uL RBC Morphology See Below Polychromasia Present Anisocytosis 1+ ESR 74 H (0-30) mm/hr VBG pH 7.39 (7.31-7.41) VBG pCO2 40 L (41-51) mmHg VBG pO2 38 mmHg VBG HCO3 25 (23-28) mmol/L VBG Total CO2 23 L (24-29) mmol/L VBG O2 Saturation 70 % VBG Base Excess -1 (-2-3) mmol/L VBG Lactate 3.0 H* (0.6-1.4) mmol/L Sodium 138 (136-145) mmol/L Potassium 4.3 (3.5-5.1) mmol/L Chloride 100 (98-107) mmol/L Carbon Dioxide 23.6 (21.0-32.0) mmol/L Anion Gap 14.4 H (3-11) mmol/L BUN 52 H (7-18) mg/dL Creatinine 1.8 H (0.55-1.02) mg/dL Est GFR (CKD-EPI 2020) 28.84 (mL/min/1.73m2) Glucose 211 H (74-106) mg/dL Calcium 9.5 (8.5-10.1) mg/dL Magnesium 1.7 L (1.8-2.4) mg/dL Total Bilirubin 0.5 (0.2-1.0) mg/dL Conjugated Bilirubin 0.2 (0.0-0.2) mg/dL AST 25 (15-37) U/L ALT 18 (14-59) U/L Alkaline Phosphatase 86 (46-116) U/L Troponin I 54 (< or =60) ng/L C-Reactive Protein 2.74 H (<or=0.5) mg/dL NT-Pro-B Natriuret Pep 3053 H (<300) pg/mL Total Protein 8.5 H (6.4-8.2) g/dL Albumin 3.5 (3.4-5.0) g/dL Lipase 43 (16-77) U/L Procalcitonin 0.1 ng/mL Urine Color (Yellow) Urine Clarity (Clear) Urine pH (5-8) Ur Specific Kaplan (1.005-1.025) Urine Protein (Neg-Trace) mg/dL Urine Ketones (Negative) mg/dL Urine Blood (Negative) Urine Nitrite (Negative) Urine Bilirubin (Negative) Urine Urobilinogen (Up to 0.2) mg/dL Ur Leukocyte Esterase (Negative) Urine RBC (0-2) HPF Urine WBC (0-5) HPF Ur Epithelial Cells (Negative) HPF Urine Crystals (Negative) HPF Urine Bacteria (Negative) HPF Urine Casts (Negative) LPF Urine Mucus (Negative) Ur Culture Indicated? Urine Glucose (Negative) mg/dL COVID-19 Source SARS-CoV-2 (PCR) (Negative) Influenza Type A (PCR) (Negative) Influenza Type B (PCR) (Negative) RSV (PCR) (Negative) 09/25/23 23:10 Blood Culture - Pending Blood 09/25/23 22:18 Blood Culture - Pending Blood Intake and Output - 24 Hour Total 09/25/23 17:44 thru 09/25/23 20:07 Intake Total 100 Balance 100 Weight 102.512 kg Intake: IV 100 Other: Stool Characteristics Brown Emesis Description None Falls Risk Assessment History of Falls No History 09/25/23 19:07 Fall Total Score 0 09/25/23 19:07 Level of Risk Standard/Low Risk 09/25/23 19:07 Problems (Last Updated 09/14/23 @ 09:15 by Kimberly Nicole MD) Gastroenteritis (Acute) CHF exacerbation (Acute) v v v v v v v v v Sending and/or Receiving Nurses: Please use comment section below to note any information pertinent to the patient hand-off not included above. Information / Comments: Report received from: stephanie ALARCON
[2023-09-26] VITALS (21 sets, daily range): BP systolic 94–133; BP diastolic 47–88; PULSE 63–75; RESP 16–28; TEMP 36–36.7; O2SAT 90–98
[2023-09-26 00:33] LABS: Lactate 2.9 mmol/L (0.6-1.4)
[2023-09-26] MEDS: Prochlorperazine 10 MG/2 ML VIAL 5 MG IVP ×4 (00:41→20:16)
[2023-09-26 00:48] LABS: Troponin I 60 ng/L (< or =60)
--- NOTE | 2023-09-26 00:53 | W.POCUS ---
Pocus Exam Limited Thoracic Lung Exam DATE OF EXAM: 09/26/23 TIME OF EXAM: 00:01 PROVIDER THAT PERFORMED THE STUDY: Yan Caba IS THIS A REPEAT EXAM DURING THIS ENCOUNTER: No REASON FOR EXAM: Hypoxia and Shortness ofBreath VISUALIZED STRUCTURES: right anterior, left anterior, right lateral and left lateral PERTINENT FINDINGS/IMPRESSION: B-lines/left side thoracis location: anterior (anterior/inferior and anterior/superior) and lateral and B-lines/right side thoracis location: anterior (anteror/inferior) and lateral; no pleural effusion on the left and no pleural effusion on the right INCIDENTAL FINDINGS: Bilateral B line pattern primarily in lower lung zones but w/ some increased B lines seen in left upper anterior zone as well. posterior zones not assessed as patient could not tolerate lying on her side or sitting up; findings consistent w/ clinical dx of CHF exacerbation Exam complete
--- NOTE | 2023-09-26 00:57 | W.POCUS ---
Pocus Exam Limited Cardiac Exam DATE OF EXAM: 09/26/23 TIME OF EXAM: 00:20 PROVIDER THAT PERFORMED THE STUDY: Yan Caba REASON FOR EXAM: Congestive heart failure and Hypoxia VISUALIZED STRUCTURES: four chambers, LVOT, aortic valve, mitral valve (moderate to severe mitral regurgitation), Interventricular septum and IVC VIEW OBTAINED: Apical 4-Chamber, Parasternal long-axis, Parasternal short-axis and Subxiphoid PERTINENT FINDINGS/IMPRESSION: Plethoric IVC and RV dilation (moderate); no IVC inspiratory collapsability, No LV dysfunction and No pericardial effusion INCIDENTAL FINDINGS: evidence of restrictive physiology, E/A of 2.53, unable to measure e' d/t severe MAC, IVC plethoric at 2.35 cm w/ 33% inspiratory collapsability suggestive of high RAP of at least 15 cm, did not measure TR velocity but suspect elevated PA pressures, will get formal echocardiogram in the morning. Did not tolerate exam (patient had difficulty lying on her side for exam)
[2023-09-26] MEDS: Insulin Glargine 300 UNITS/3 ML PEN 12 UNITS SC (01:34)
[2023-09-26] MEDS: Furosemide 40 MG/4 ML VIAL IVP ×3 (01:36→16:08)
[2023-09-26 02:27] LABS: Troponin I 59 ng/L (< or =60)
[2023-09-26] MEDS: Levothyroxine 75 MCG TAB 37.5 MCG PO (05:16)
[2023-09-26] MEDS: Acetaminophen 325 MG TAB PO (05:16)
[2023-09-26 05:57] LABS: HCT 38.5 % (36.0-46.0); HGB 11.7 g/dL (11.2-15.7); MCH 25.8 pg (27.0-33.0); MCHC 30.4 % (32.0-36.0); MCV 85 fL (80-95); MPV 9.8 fL (8.0-11.0); Platelet Count 234 10^3/uL (130-400); RBC 4.54 10^6/uL (3.93-5.22); RDW 22.7 % (11.7-14.6); RDW-SD 69.3 fL
[2023-09-26 06:05] LABS: Lactate 2.9 mmol/L (0.6-1.4)
[2023-09-26 06:20] LABS: Anion Gap 13.2 mmol/L (3-11); BUN 47 mg/dL (7-18); C-Reactive Protein 6.03 mg/dL (<or=0.5); CO2 26.8 mmol/L (21.0-32.0); CREATININE 1.8 mg/dL (0.55-1.02); Calcium 9.2 mg/dL (8.5-10.1); Chloride 101 mmol/L (98-107); Estimated GFR 28.84 (mL/min/1.73m2); Glucose 167 mg/dL (74-106); Magnesium 1.8 mg/dL (1.8-2.4); Potassium 4.1 mmol/L (3.5-5.1); Sodium 141 mmol/L (136-145)
[2023-09-26 06:33] LABS: Absolute Lymphocyte Count 0.14 10^3/uL (1.2-3.4); Absolute Neutrophil Count 2.07 10^3/uL (1.2-6.7)
[2023-09-26 06:34] LABS: Absolute Eosinophil Count 0.02 10^3/uL (0.0-0.7); Absolute Monocyte Count 0.07 10^3/uL (0.1-0.8); Anisocytosis 2+; Diff Comment Manual Differential; Polychromasia Present
--- NOTE | 2023-09-26 08:00 | DI.US_ITS ---
APPROVED REPORT EXAM: Comprehensive 2D, Doppler, and color-flow Echocardiogram Patient Location: In-Patient Room/Bed: [id number] High Man: Ema Bhardwaj RDCS (AE) Indications: CHF, Evaluate LV and RV, TAVR, MR, TR Other Information Study Quality: Fair. Technically limited study due to body habitus, inability to position patient exa m done supine bedside.. Conclusion Moderate concentric left ventricular . Ejection fraction is 50 to 55% Right ventricle is not well-visualized but appears dilated Both atria are dilated Patient is status post transcatheter aortic valve replacement. Mean gradient is 37 mmHg. there is tr carmelo aortic regurgitation Mitral annular calcification. Moderate to severe mitral regurgitation Mild tricuspid regurgitation. Estimated right ventricular systolic pressure is 60 mmHg Wall motion Left Ventricle The left ventricle is normal size. The overall left ventricular systolic function appears normal. Mod erate concentric left ventricular hypertrophy. Regional wall motion is not well visualized but grossl y normal. There is no ventricular septal defect visualized. LVEF is 53%. Right Ventricle Right ventricle is not well visualized. Right ventricular systolic function could not be assessed. Atria Left atrium is moderate to severely dilated. Right atrium is moderately dilated. The interatrial sept um is intact with no evidence for an atrial septal defect. Aortic Valve Aortic valve is trileaflet. Peak aortic valve gradient is 59.09mmHg. Highest mean aortic valve gradie nt is 37.42_mmHg. Trace aortic regurgitation. TAVR aortic valve replacement. Mitral Valve Severe mitral annular calcification. No evidence of mitral valve stenosis. Moderate to severe mitral regurgitation. Tricuspid Valve The tricuspid valve is normal in structure. There is no tricuspid valve stenosis. Mild tricuspid regu rgitation. Pulmonic Valve The pulmonary valve is normal in structure. There is no pulmonic valvular stenosis. Trace pulmonic re gurgitation. Great Vessels The aortic root is normal in size. The ascending aorta is normal in size. Aortic arch is not well vis ualized. The IVC collapses <50% with inspiration. Pericardium There is no pericardial effusion. 2D Dimensions IVSD d PLAX 1.35 cm F: 0.6-1.0 Ao Root d 2.38 cm F: 2.7 - 3.3 LVPW d PLAX 1.35 cm F: 0.6 - 1.0 Ao Asc Diam d 2.76 cm F: 2.3 - 3.1 LVID d PLAX 4.68 cm F: 3.8 - 5.2 LVDs 3.40 cm F: 2.2 - 3.5 LV EF Teichholz 53.1 % FS 27.31 % LV EDV (Teich) 101.2 mL LV ESV (Teich) 47.4 mL M-Mode TAPSE 1.82 cm (M/F) >1.7 LA Volume LA Length A4C 6.4 cm LA Length A2C 6.3 cm LA Area A4C s 30.93 cm2 LA Area A2C s 32.62 cm2 LA Vol A4C A-L 126.37 mL LA Vol A2C A-L 143.84 mL LA Vol Biplane A-L 136.4 mL LA Vol/BSA A4C A-L LA Vol/BSA A2C A-L LA Vol/BSA BP A-L 70.3 mL/m2 LA Vol A4C MOD 109.7 mL LA Vol A2C MOD 134.8 mL LA Vol BP MOD 122.4 mL RA Volume RA Area A4C 23.6 cm2 RA ESV A4C (A-L) 82.4mL RA Vol/BSA A4C A-L RA Length A4C 5.8 cm RA ESV A4C (MOD) 73.8mL LV Diastology MV E' lateral 0.071 (>0.1 m/s) MV E Vmax 1.67 (0.4-1.3 m/s) MV E/E' LAT 23.50 (<14) Aortic Valve AoV Vmax 3.84 m/s LVOT Vmax 1.45 m/s AoV Peak Grad 59.1 mmHg LVOT Peak Grad 8.5 mmHg AoV Area (Vmax) 1.13 cm2 LVOT VTI 0.292 m AoV VTI 0.896 m LVOT Mean Grad 4.5 mmHg AoV Mean Denny. 2.93 m/s LVOT SV 87.00 mL AoV Mean Grad 37.4 mmHg LVOT Diam s 1.90 cm AoV Area (VTI) 0.97 cm2 Velocity Ratio 0.38 Mitral Valve MV DT 190 (160-240 msec) MV Vmax TIPS 1.51 m/s MV Mean Grad 2.7 (<2mmHg) MV VTI 0.347 m Pulmonary Valve PV Vmax 1.17 (0.5-1.5 m/s) RVOT Vmax 0.68 m/s PV Peak Grad 5.5 mmHg RVOT Peak Gr. 1.9 mmHg PV Mean Denny 0.68 m/s RVOT VTI 0.149 m PV Mean Grad 2.3 mmHg RVOT Mean Gr. 0.8 mmHg Tricuspid Valve RA Pressure 8.00 mmHg TR Vmax 3.60 m/s TV S' 0.09 m/s TR Peak Grad 51.7 mmHg RVSP (TR) 59.7 mmHg
[2023-09-26] MEDS: Potassium Chloride 20 MEQ TABCR 40 MEQ PO ×2 (08:12→18:12)
[2023-09-26] MEDS: Cholecalciferol (Vitamin D3) 1,000 UNIT TAB 1000 UNITS PO (08:12)
[2023-09-26] MEDS: Apixaban 5 MG TAB PO ×2 (08:12→19:58)
[2023-09-26] MEDS: Magnesium Chloride 64 MG TABCR PO ×2 (08:12→19:59)
[2023-09-26] MEDS: Spironolactone 25 MG TAB PO (08:12)
[2023-09-26] MEDS: Metoprolol CR 100 MG TABCR PO (08:13)
[2023-09-26] MEDS: Sucralfate 1 GM TAB PO ×4 (08:13→21:49)
[2023-09-26] MEDS: Normal Saline Flush 10 ML SYR IVP ×3 (08:14→20:17)
[2023-09-26] MEDS: Insulin Aspart 300 UNITS/3 ML PEN SC ×2 (08:33→17:17)
--- NOTE | 2023-09-26 08:46 | INITIAL_ITS ---
Date of service: 09/26/23 Time of Service: 08:47 Care Management Initial Assmt Initial Assessment REASON FOR HOSPITALIZATION:: CHF PREVIOUS FUNCTIONAL STATUS/SOCIAL/FAMILY SUPPORTS:: Maliha lives in a single family home in [facility] with her Marcell. They have 2 sons who both live locally. 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 Maliha is independent at baseline, drives and does not have any community services. She does use a cane occasionally at night. CURRENT FUNCTIONAL STATUS:: Maliha was sitting up in a chair when CM met with her. She stated that she is feeling much better than yesterday. She informed CM that her nausea, vomiting and diarrhea are gone, lasting only 24 hours. She now has an exacerbation of her CHF however. She is receiving diuretics but is no longer requiring supplemental oxygen. Maliha reported that she does not feel she will need any new services when she is discharged. ADVANCE DIRECTIVES:: On file. Marcell Iqbal [facility] Has patient been provided with info about the portal/API?: Yes Did the patient sign up for the portal?: Yes CODE STATUS:: DNR/DNI INSURANCE COVERAGE / FINANCIAL ISSUES:: BC/BS Medicare Advantage CURRENT HOME/COMMUNITY SERVICES/EQUIPMENT:: uses a cane occasionally PRIMARY CARE PHYSICIAN:: Kimberly Nicole POTENTIAL DISCHARGE NEEDS:: follow up with PCP and plan of care PATIENT/FAMILY EDUCATION NEEDS:: Review of discharge instructions, activity, follow up plan, limitations, discuss Ask Me Three TRANSPORTATION:: via private vehicle with family PLAN:: Anticipate that Maliha will be discharged home with no new services. She will follow up with her PCP and plan of care and transport with family. CM will continue to support Maliha and her discharge planning needs. 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 Medtronic micra [id number] SERIAL # [id number] Complete heart block (Acute 02/2023) 02/19/23 Per [facility]. Completely dependent on ventricular pace maker. V paced leadless pacer placed at [facility]. 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 Obstructive sleep apnea syndrome (Chronic 09/26/12) DX SEP 2012 AT [facility]; wears CPAP machine. Hypothyroidism (Chronic 12/06/14) Hyperlipidemia (Acute) Essential hypertension (Chronic 08/13/13) Obesity, morbid (Chronic) a. BMI of 52 Medical History (Updated 09/26/23 @ 01:40 by Yan Caba MD) Pneumonia (~08/2023) Left lingula Encounter for insertion of cardiac resynchronization therapy pacemaker Right ventricular Per [facility] 02/19/23. -hb 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 tachycardia Diabetic neuropathy Pre-ulcerative corn or callous Bilateral bunions Severe aortic stenosis GI bleed had melena transiently in 02/2021; unable to be evaluated due to AV stenosis. Former smoker (08/16/14) 5 pack yr history Diverticulosis Peptic ulcer disease with hemorrhage hx x 3 Restless legs (01/18/13) sleep study low iron (not anemic) Osteoarthritis intermediate current use of antiarrhythmic medical therapy (08/21/13) Colon polyp (07/10/18) 12/19 tubular adenoma Atrial fibrillation (06/23/12) 02/19 start Tikosyn 06/21 and 11/20 recurrent 2013 ablation at [facility] echo 2012 at [facility], normal LVEF and valves 05/2021 RVR, s/p [id number] CV and change to amiodarone. Asthma Gastroesophageal reflux disease Surgical History Status post transcatheter aortic valve replacement (TAVR) using bioprosthesis (~04/2021) Complicated by extravasation of contrast on iliofemoral angiography. 2 covered stents placed in the artery EIA extending into the R ALTERATION TAILOR History of open sigmoidectomy Status post abdominal hysterectomy Status post appendectomy Status post total bilateral knee replacement S/P colonoscopy (~07/10/18) History of esophagogastroduodenoscopy (EGD) (~05/2018) 07/10/18 Family History Mother , 65 Thoracic aneurysm, ruptured Personal history of malignant neoplasm LYMPHOMA Father , 64 Heart disease Myocardial infarction Stroke Maternal Grandfather , 80 Heart disease Stroke Paternal Grandfather , 65 Heart disease Maternal Grandmother , 83 Heart disease Paternal Grandmother , 40 Cancer Son No problems noted. Son No problems noted. Social History Smoking/Tobacco Use Status: Former Tobacco Use Quit Date: 08/08/72 Tobacco: How many years used: 4 Second Hand Exposure: No Smoking risk assessment performed?: Yes Alcohol Intake: never Drug use: Never Substance use type: does not use Caregiver/Support person: No Household members: spouse Housing: house Communication Needs: None current occupation: [employer] Pets and animals: Yes Pets and animals: dog(s) Sexually active: Yes Do you think of yourself as: straight/heterosexual Current gender identity: female What is your relationship status?: How often do you talk on the phone with friends or family?: twice per week How often do you get together with friends or relatives?: three or more times per week How often do you attend pentecostalism or pentecostal services?: 4 or more times per year Do you belong to any clubs or organized social groups?: no Panel score (0-1 are the most socially isolated patients): 3 What type of physical activity do you participate in: walking Duration: < 15 minutes/day Frequency: 1-2 times per week Radha/Jainism: Scientology Special radha needs: No Seatbelt use: always Drive intox or ride w/intox dray driver: No Do you feel safe at home: Yes Do you feel safe in your relationship?: Yes Additional Social history: at bedside SDOH(Care Management) Screening Will the Patient Participate in the Screening?: Unable to obtain
[2023-09-26] MEDS: Allopurinol 100 MG TAB PO (09:49)
--- NOTE | 2023-09-26 17:51 | W.PM.PROGNOT ---
Date of Service Date of service: 09/26/23 Time of Service: 18:42 Assessment and Plan Assessment and plan (1) Acute on chronic heart failure with preserved ejection fraction (HFpEF): Status: Acute Assessment and plan: -Patient initially presented to the emergency department she was 95% oxygen saturation on room air and after 300 mL bolus of IV fluids she developed worsening dyspnea and hypoxemia. -Chest x-ray suggestive of CHF as does her pulmonary ultrasound and echocardiogram. -IV fluids have been discontinued and patient has been started on IV Lasix. -We will continue her spironolactone. -Serial troponins been negative for acute ischemic event. -Formal echocardiogram this morning unchanged (2) Gastroenteritis: Status: Acute Assessment and plan: -Supportive care with antiemetics and pain medications. (3) Cor pulmonale (chronic): Status: Acute (4) CKD (chronic kidney disease) stage 4, GFR 15-29 ml/min: Status: Acute Assessment and plan: -Initially it appeared that her current BUN/creatinine were higher than her last readings however when looking back at her overall BUN and creatinine over the last 1 to 2 years she is probably at her baseline. -She has stage IV chronic kidney disease. (5) Type 2 diabetes mellitus without complication, with long-term current use of insulin: Status: Acute Assessment and plan: For tonight have only ordered half her usual dose of Lantus and put her on insulin sensitive sliding scale. Tomorrow night we can resume her usual dose of her Lantus as long as she is eating adequately and taking enough liquids. 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 Once she is medically stable we will get physical therapy involved to evaluate and begin treatment for generalized weakness and deconditioning. Anticipate discharge in a couple of days once her CHF is resolved and her gastroenteritis has improved. Subjective Subjective Interval history since last seen: Patient states that she is feeling much better today and has no complaints or concerns at this time. Exam Narrative Exam Narrative: Ojag[id number]-old female laying in bed in no acute distress, ANO x 4, 1 L nasal cannula in place, heart regular rate rhythm, lungs with mild diffuse crackles, abdomen soft, nontender, nondistended Objective Last Vital Signs Temp 97.2 F L 09/26/23 08:19 Pulse 70 09/26/23 15:00 Resp 26 H 09/26/23 15:00 BP 112/67 09/26/23 15:00 Pulse Ox 94 09/26/23 15:00 Laboratory Results - last 24 hr 09/25/23 09/25/23 09/25/23 19:25 20:05 20:55 WBC 2.79 L RBC 4.60 Hgb 11.7 Hct 38.7 MCV 84 MCH 25.4 L MCHC 30.2 L RDW 22.5 H Plt Count 225 MPV 8.9 Immature Gran % 0.0 Neutrophils % 91.0 Lymphocytes % 5.0 Monocytes % 4.0 Eosinophils % 0.0 Basophils % 0.0 Nucleated RBC % 0.0 Absolute Neutrophils 2.54 Absolute Lymphocytes 0.14 L Absolute Monocytes 0.11 Absolute Eosinophils 0.00 Absolute Basophils 0.00 RBC Morphology See Below Polychromasia Present Anisocytosis 1+ ESR 74 H VBG pH 7.39 VBG pCO2 40 L VBG pO2 38 VBG HCO3 25 VBG Total CO2 23 L VBG O2 Saturation 70 VBG Base Excess -1 VBG Lactate 3.0 H* Sodium 138 Potassium 4.3 Chloride 100 Carbon Dioxide 23.6 Anion Gap 14.4 H BUN 52 H Creatinine 1.8 H Est GFR (CKD-EPI 2020) 28.84 Glucose 211 H Calcium 9.5 Magnesium 1.7 L Total Bilirubin 0.5 Conjugated Bilirubin 0.2 AST 25 ALT 18 Alkaline Phosphatase 86 Troponin I 54 56 C-Reactive Protein 2.74 H NT-Pro-B Natriuret Pep 3053 H Total Protein 8.5 H Albumin 3.5 Lipase 43 Procalcitonin 0.1 Urine Color Urine Clarity Urine pH Ur Specific [place] Urine Protein Urine Ketones Urine Blood Urine Nitrite Urine Bilirubin Urine Urobilinogen Ur Leukocyte Esterase Urine RBC Urine WBC Ur Epithelial Cells Urine Crystals Urine Bacteria Urine Casts Urine Mucus Ur Culture Indicated? Urine Glucose COVID-19 Source Nasopharynx SARS-CoV-2 (PCR) Negative Influenza Type A (PCR) Negative Influenza Type B (PCR) Negative RSV (PCR) Negative 09/25/23 09/26/23 09/26/23 22:18 00:13 02:00 WBC RBC Hgb Hct MCV MCH MCHC RDW Plt Count MPV Immature Gran % Neutrophils % Lymphocytes % Monocytes % Eosinophils % Basophils % Nucleated RBC % Absolute Neutrophils Absolute Lymphocytes Absolute Monocytes Absolute Eosinophils Absolute Basophils RBC Morphology Polychromasia Anisocytosis ESR VBG pH VBG pCO2 VBG pO2 VBG HCO3 VBG Total CO2 VBG O2 Saturation VBG Base Excess VBG Lactate 2.9 H* Sodium Potassium Chloride Carbon Dioxide Anion Gap BUN Creatinine Est GFR (CKD-EPI 2020) Glucose Calcium Magnesium Total Bilirubin Conjugated Bilirubin AST ALT Alkaline Phosphatase Troponin I 60 59 C-Reactive Protein NT-Pro-B Natriuret Pep Total Protein Albumin Lipase Procalcitonin Urine Color Yellow Urine Clarity Clear Urine pH 5.5 Ur Specific [place] 1.010 Urine Protein Negative Urine Ketones Negative Urine Blood Trace-intact H Urine Nitrite Negative Urine Bilirubin Negative Urine Urobilinogen 0.2 Ur Leukocyte Esterase Negative Urine RBC 0-2 Urine WBC 0-2 Ur Epithelial Cells Negative Urine Crystals Negative Urine Bacteria Negative Urine Casts Negative Urine Mucus Negative Ur Culture Indicated? No Urine Glucose Negative COVID-19 Source SARS-CoV-2 (PCR) Influenza Type A (PCR) Influenza Type B (PCR) RSV (PCR) 09/26/23 05:47 WBC 2.30 L RBC 4.54 Hgb 11.7 Hct 38.5 MCV 85 MCH 25.8 L MCHC 30.4 L RDW 22.7 H Plt Count 234 MPV 9.8 Immature Gran % 0.0 Neutrophils % 90.0 Lymphocytes % 6.0 Monocytes % 3.0 Eosinophils % 1.0 Basophils % 0.0 Nucleated RBC % 0.0 Absolute Neutrophils 2.07 Absolute Lymphocytes 0.14 L Absolute Monocytes 0.07 L Absolute Eosinophils 0.02 Absolute Basophils 0.00 RBC Morphology See Below Polychromasia Present Anisocytosis 2+ ESR VBG pH VBG pCO2 VBG pO2 VBG HCO3 VBG Total CO2 VBG O2 Saturation VBG Base Excess VBG Lactate 2.9 H* Sodium 141 Potassium 4.1 Chloride 101 Carbon Dioxide 26.8 Anion Gap 13.2 H BUN 47 H Creatinine 1.8 H Est GFR (CKD-EPI 2020) 28.84 Glucose 167 H Calcium 9.2 Magnesium 1.8 Total Bilirubin Conjugated Bilirubin AST ALT Alkaline Phosphatase Troponin I C-Reactive Protein 6.03 H NT-Pro-B Natriuret Pep Total Protein Albumin Lipase Procalcitonin Urine Color Urine Clarity Urine pH Ur Specific [place] Urine Protein Urine Ketones Urine Blood Urine Nitrite Urine Bilirubin Urine Urobilinogen Ur Leukocyte Esterase Urine RBC Urine WBC Ur Epithelial Cells Urine Crystals Urine Bacteria Urine Casts Urine Mucus Ur Culture Indicated? Urine Glucose COVID-19 Source SARS-CoV-2 (PCR) Influenza Type A (PCR) Influenza Type B (PCR) RSV (PCR) Time Spent with Patient Time Spent with Patient: >50 minutes Time was spent: preparing to see the patient(eg.review tests), obtaining and/or reviewing separately otained hiistory, ordering medications,tests, procedures, referring, communicating with other health child care centre director, indepentently interpreting results, counseling the patient and care coordination
[2023-09-26] MEDS: Insulin Glargine 300 UNITS/3 ML PEN 25 UNITS SC (19:59)
[2023-09-26] MEDS: Simvastatin 10 MG TAB PO (19:59)
--- NOTE | 2023-09-26 21:29 | RESPIRATORY ---
RT seen pt. for LAI diagnosis. Pt. has brought her HU called [employer], has Auto BiPAP of 21/13 cm H2O. Pt. states she wears it independently, pt. moralesly needs 1L/min of O2 which RT has connected to pt's HU. RT has inspected device and it is in good condition to go. H2O is filled out in water chamber. DME is [employer]
[2023-09-27] VITALS (8 sets, daily range): BP systolic 113–120; BP diastolic 68–76; PULSE 70–108; RESP 16–21; TEMP 35.8–36.6; O2SAT 92–99
[2023-09-27] MEDS: Levothyroxine 75 MCG TAB 37.5 MCG PO (06:33)
[2023-09-27 07:21] LABS: HGB 11.1 g/dL (11.2-15.7); MCH 25.9 pg (27.0-33.0); MCV 86 fL (80-95); MPV 9.4 fL (8.0-11.0); Platelet Count 195 10^3/uL (130-400); RBC 4.29 10^6/uL (3.93-5.22); RDW-SD 70.6 fL
[2023-09-27 07:28] LABS: WBC 1.92 10^3/uL (4.4-10.8)
[2023-09-27 07:33] LABS: BUN 45 mg/dL (7-18); CREATININE 1.7 mg/dL (0.55-1.02); Calcium 9.4 mg/dL (8.5-10.1); Chloride 102 mmol/L (98-107); Estimated GFR 30.89 (mL/min/1.73m2); Glucose 118 mg/dL (74-106); Potassium 4.1 mmol/L (3.5-5.1); Sodium 140 mmol/L (136-145)
[2023-09-27] MEDS: Spironolactone 25 MG TAB PO (08:29)
[2023-09-27] MEDS: Metoprolol CR 100 MG TABCR PO (08:29)
[2023-09-27] MEDS: Magnesium Chloride 64 MG TABCR PO (08:29)
[2023-09-27] MEDS: Potassium Chloride 20 MEQ TABCR 40 MEQ PO (08:29)
[2023-09-27] MEDS: Apixaban 5 MG TAB PO (08:29)
[2023-09-27] MEDS: Allopurinol 100 MG TAB PO (08:29)
[2023-09-27] MEDS: Sucralfate 1 GM TAB PO ×3 (08:29→17:25)
[2023-09-27] MEDS: Furosemide 40 MG/4 ML VIAL IVP (08:29)
[2023-09-27] MEDS: Cholecalciferol (Vitamin D3) 1,000 UNIT TAB 1000 UNITS PO (08:30)
[2023-09-27] MEDS: Normal Saline Flush 10 ML SYR IVP (08:34)
[2023-09-27 08:57] LABS: Lab Add On Test DONE
[2023-09-27 09:00] LABS: Abs Immature Grans 0.01 10^3/uL (0.0-0.06); Absolute Eosinophil Count 0.09 10^3/uL (0.0-0.7); Absolute Lymphocyte Count 0.69 10^3/uL (1.2-3.4); Absolute Monocyte Count 0.08 10^3/uL (0.1-0.8); Absolute Neutrophil Count 1.12 10^3/uL (1.2-6.7); Eosinophils % 4.5; Immature Grans % 0.5; Lymphocytes % 34.7; Neutrophils % 56.3
[2023-09-27] MEDS: Acetaminophen 325 MG TAB PO (11:09)
[2023-09-27] MEDS: Insulin Aspart 300 UNITS/3 ML PEN SC (13:04)
--- NOTE | 2023-09-27 16:04 | W.PM.DS.N ---
Date of service: 09/27/23 Time of Service: 16:04 DS: Diagnosis Discharge Diagnosis (1) Acute hypoxemic respiratory failure: Status: Acute (2) Acute on chronic heart failure with preserved ejection fraction (HFpEF): Status: Acute (3) Cor pulmonale (chronic): Status: Acute (4) Gastroenteritis: Status: Resolved (5) CKD (chronic kidney disease) stage 4, GFR 15-29 ml/min: Status: Acute (6) Type 2 diabetes mellitus without complication, with long-term current use of insulin: Status: Acute (7) Mitral stenosis with regurgitation: Status: Chronic (8) Obstructive sleep apnea syndrome: Status: Chronic (9) Lactic acidosis: Status: Chronic (10) Leucopenia: Status: Chronic Discharge Plan Disposition Patient Disposition: Home Condition: Stable Discharge Details Reason For Visit: Gastroenteritis, HEYDI, Exacerbation of HFPEF Admit Date/Time: 09/25/23 22:42 Admit Provider: Yan Caba Attending Provider: Yan Caba Primary Care Provider: Kimberly Nicole Hospital Course Hospital Course: Ms Iqbal is a 77 year old female with PMHx of CHFpEF, pulmonary hypertension/cor pulmonale, IDDM2, CKD4, who was a patient on [facility] Hospitalist service from 09/25/23 until 09/27/23, having presented with nausea and vomiting, felt to be due to a viral gastroenteritis. She presented not requiring oxygen; however, did develop an oxygen requirement/acute hypoxic respiratory failure felt to be due to acute on chronic CHFpEF, likely exacerbated due to IV hydration. The patient needed 3L of O2. Her imaging confirmed pulmonary edema. The patient was diuresed and is now back to room air. Her CT abdomen/pelvis was negative. She is able to tolerate PO. She passed exercise oximetry on RA and feels back to her baseline. She is being discharged home today with follow up with her PCP in 1-2 weeks. Of note, the patient does have evidence of leucopenia. For this, she should have outpatient B12 and folate levels checked - results should go to her PCP. No new prescriptions were written - she is going home with resumption of her outpatient medications. Care for patient as well as completion of her discharge summary on day of discharge took 45 minutes. Home Meds and New Rx's Prescriptions: Continued (DME) diabetic extra depth shoes See Rx Instructions .Route .MEDSUPPLY Qty: 1 0RF Rx Instructions: As directed (DME) Dexcom G6 Sensor Device See Rx Instructions .MEDSUPPLY Qty: 3 12RF Rx Instructions: As directed (DME) Dexcom G6 Transmitter Device See Rx Instructions .MEDSUPPLY Qty: 1 3RF Rx Instructions: As directed insulin aspart U-100 [Novolog FlexPen U-100 Insulin] 100 unit/mL (3 mL) insulin pen See Rx Instructions subcut TID Qty: 15 5RF Rx Instructions: sliding scale with meals: use 2 units glucose 120-150; 4 units glucose 151-200; 6 units 201-250; 8 units 251+ subcutaneously three times a day; insulin glargine 100 unit/mL (3 mL) insulin pen 25 unit subcut QPM Qty: 15 12RF acetaminophen [Tylenol] 325 mg tablet 325 - 650 mg PO Q4H PRN PRN (Reason: pain) Qty: 30 0RF magnesium chloride 64 mg tablet,delayed release (DR/EC) 64 mg PO BID Qty: 180 3RF metolazone 5 mg tablet 5 mg PO .COMPLEX Qty: 60 5RF Rx Instructions: Once weekly on Tuesday ([facility]) blood sugar diagnostic Strip See Dose Instructions .ROUTE .MEDSUPPLY Qty: 400 3RF Dose Instruction: As directed Rx Instructions: use tid and prn.Accu-Chek Smart View Test Strip simvastatin 10 mg tablet 10 mg PO QPM Qty: 90 3RF (DME) Dexcom G6 Combo Welder Misc See Rx Instructions .MEDSUPPLY Qty: 1 0RF Rx Instructions: As directed metoprolol succinate 200 mg tablet extended release 24 hr 100 mg PO DAILY Patient Comments: TAKE ONE TABLET BY MOUTH EVERY DAY Rx Instructions: Decrease to 100mg daily per [facility] Cardiology 02/19/23. -hb sucralfate 1 gram tablet 1 g PO AC & HS Qty: 120 12RF (DME) pen needle, diabetic [BD Ultra-Fine Mini Pen Needle] 31 gauge x 3/16 needle See Rx Instructions .Route Qty: 100 12RF Rx Instructions: As directed qid torsemide 20 mg tablet 40 mg PO DAILY Qty: 60 5RF colchicine 0.6 mg tablet 0.6 mg PO DAILY PRN (Reason: gout) Qty: 20 3RF clotrimazole 1 % cream 1 applic topical BID Qty: 45 2RF Hold Instructions: Prescription Finished Rx Instructions: Apply to affected areas twice a day for 2-4wks Eliquis 5 mg tablet 5 mg PO BID Qty: 60 11RF potassium chloride 20 mEq tablet,ER particles/crystals 40 meq PO BIDWMEAL Qty: 120 5RF allopurinol 100 mg tablet 100 mg PO DAILY Qty: 90 3RF levothyroxine 75 mcg tablet 37.5 mcg PO DAILY@0600 Qty: 15 3RF spironolactone 25 mg tablet 25 mg PO DAILY Qty: 90 3RF Patient Comments: TAKE ONE-HALF TABLET BY MOUTH EVERY DAY cholecalciferol (vitamin D3) 25 mcg (1,000 unit) Tablet 1,000 units PO DAILY Qty: 0 0RF Hold Instructions: Pt Stopped/Never Started cyanocobalamin (vitamin B-12) [Vitamin B-12] 500 mcg Tablet 1,000 mcg PO DAILY Qty: 60 0RF Hold Instructions: Pt Stopped/Never Started Discharge Instructions Instructions: Heart Failure (DC), Acute Nausea and Vomiting (DC) Additional Instructions: Return to the hospital with any fever, bleeding, chest pain, or shortness of breath. Follow up with your PCP in 1-2 weeks. Follow up for bloodwork within the next 3-5 days. Weigh yourself daily and record your weights. Notify your PCP if you have gained 3 lbs or greater in 3 days. Stand Alone Forms: Nursing Discharge Form Referrals: Kimberly Nicole MD [Primary Care Provider] - (Please call for an apt within 1-2 weeks) Activity:: Activity as Tolerated Equipment/Supplies:: No Equipment Needed Diet:: consistent carb heart healthy Discharge Orders Discharge Orders: Discharge Order (Routine); Ordered 09/27/23 Ordered By: Lori Yuan Other Ambulatory Orders: Vitamin B12 (Routine) Timeframe: 3 Days Facility: [facility] - Location: Laboratory Outpatient - [facility] Ordered By: Lori Yuan Folate (Routine) Timeframe: 3 Days Facility: [facility] - Location: Laboratory Outpatient - [facility] Ordered By: Lori Yuan DS: Summary Time Spent with Patient providing and/or coordinating discharge services: Greater than 30 minutes Status at Discharge Functional status at discharge: independent ambulation Overall status at discharge: patient is back to baseline Mental Status: mental status grossly normal Speech and Movement: speech and movement normal Mood: congruent mood Affect: normal affect Quality:SDOH Health Related Social Needs: No Data to Display Exam Narrative Exam Narrative: General: A pleasant obese female who is A&Ox3, NAD, sitting up comfortably in a chair HEENT: EOMI, MMM Heart: RRR, no m/r/g Lungs: CTAB Abdomen: soft, nontender, nondistended Extremities: no edema BLEs Psych Mental Status: mental status grossly normal Speech and Movement: speech and movement normal Mood: congruent mood Affect: normal affect DS: Data Vitals/I&O Vitals and I&O: Vital Signs Temperature 36.6 C 09/27/23 14:53 Temperature Source Tympanic 09/27/23 14:53 Pulse 71 09/27/23 14:53 Pulse Rhythm Regular 09/27/23 08:35 Pulse 70 09/26/23 16:00 Respiratory Rate 16 09/27/23 14:53 Respiratory Effort Normal, Non-Labored 09/27/23 08:35 Respiratory Depth Normal 09/27/23 08:35 Respiratory Pattern Normal 09/27/23 08:35 Blood Pressure 114/71 09/27/23 14:53 Blood Pressure Mean 76 09/26/23 15:00 Blood Pressure Position Sitting 09/25/23 17:45 Pulse Oximetry 92 09/27/23 14:53 Oxygen Delivery Method Room Air 09/27/23 14:53 Oxygen Flow Rate 0 09/27/23 14:53 Pain Level 0 09/27/23 14:53 Comment 2l 09/26/23 03:55 Intake & Output 09/26/23 09/27/23 09/27/23 23:59 11:59 23:59 Intake Total 240 / 1940 Output Total 500 / 1450 1250 / 1450 200 / 1450 Balance -260 / 490 -1230 / -1430 -200 / -1430 Intake: IV Oral 240 / 920 Output: Urine 500 / 1450 1250 / 1450 200 / 1450 Other: Urine Color Yellow Yellow Yellow Urine Appearance Clear Clear Clear Urine Odor None Normal Voiding Methods Bedside Commode Toilet Toilet Data Completed and Pending Pending studies at discharge: CT abdomen/pelvis: 1. No acute abdominal or pelvic process. 2. Colonic diverticulosis and rectosigmoid anastomosis. No evidence of diverticulitis. CXR: Mild cardiomegaly. Interstitial infiltrates bilaterally and pulmonary venous left emmanuel raising the question of fluid overload/CHF. Please correlate clinically. Echo: Moderate concentric left ventricular . Ejection fraction is 50 to 55% Right ventricle is not well-visualized but appears dilated Both atria are dilated Patient is status post transcatheter aortic valve replacement. Mean gradient is 37 mmHg. there is trace aortic regurgitation Mitral annular calcification. Moderate to severe mitral regurgitation Mild tricuspid regurgitation. Estimated right ventricular systolic pressure is 60 mmHg Labs on day of discharge: Labs from last 24 hours 09/27/23 09/27/23 08:57 06:33 WBC 1.92 L* RBC 4.29 Hgb 11.1 L Hct 37.0 MCV 86 MCH 25.9 L MCHC 30.0 L RDW 23.0 H Plt Count 195 MPV 9.4 Immature Gran % 0.5 Neutrophils % 56.3 Lymphocytes % 34.7 Monocytes % 4.0 Eosinophils % 4.5 Basophils % 0.0 Absolute Neutrophils 1.12 L Absolute Lymphocytes 0.69 L Absolute Monocytes 0.08 L Absolute Eosinophils 0.09 Absolute Basophils 0.00 Sodium 140 Potassium 4.1 Chloride 102 Carbon Dioxide 29.0 Anion Gap 9.0 BUN 45 H Creatinine 1.7 H Est GFR (CKD-EPI 2020) 30.89 Glucose 118 H Calcium 9.4 Add-On Test Request DONE Preliminary micro results at discharge 09/26/23 00:13 Blood Culture - Preliminary Blood NO GROWTH 24 HOURS 09/25/23 23:10 Blood Culture - Preliminary Blood NO GROWTH 24 HOURS PFSH All Active Problems (Updated 09/27/23 @ 16:06 by Lori Yuan MD) Leucopenia (Chronic) Lactic acidosis (Chronic) Acute hypoxemic respiratory failure (Acute) Discharge planning issues (Acute) Cor pulmonale (chronic) (Acute) Acute on chronic heart failure with preserved ejection fraction (HFpEF) (Acute) CHF exacerbation (Acute) Ischemia of finger (Acute) (HFpEF) heart failure with preserved ejection fraction (Acute) Cardiac pacemaker (Acute) 04/30/23 placed at [facility] 02/18/23 after AV node ablation causing CHB. [employer] micra [id number] SERIAL # [id number] Complete heart block (Acute 02/2023) 02/19/23 Per [facility]. Completely dependent on ventricular pace maker. V paced leadless pacer placed at [facility]. 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 Obstructive sleep apnea syndrome (Chronic 09/26/12) DX SEP 2012 AT [facility]; wears CPAP machine. Hypothyroidism (Chronic 12/06/14) Hyperlipidemia (Acute) Essential hypertension (Chronic 08/13/13) Obesity, morbid (Chronic) a. BMI of 52 Medical History (Updated 09/27/23 @ 16:06 by Lori Yuan MD) Pneumonia (~08/2023) Left lingula Encounter for insertion of cardiac resynchronization therapy pacemaker Right ventricular Per [facility] 02/19/23. -hb 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 tachycardia Diabetic neuropathy Pre-ulcerative corn or callous Bilateral bunions Severe aortic stenosis GI bleed had melena transiently in 02/2021; unable to be evaluated due to AV stenosis. Former smoker (08/16/14) 5 pack yr history Diverticulosis Peptic ulcer disease with hemorrhage hx x 3 Restless legs (01/18/13) sleep study low iron (not anemic) Osteoarthritis assisted current use of antiarrhythmic medical therapy (08/21/13) Colon polyp (07/10/18) 12/19 tubular adenoma Atrial fibrillation (06/23/12) 02/19 start Tikosyn 06/21 and 11/20 recurrent 2013 ablation at [facility] echo 2012 at [facility], normal LVEF and valves 05/2021 RVR, s/p [id number] CV and change to amiodarone. Asthma Gastroesophageal reflux disease Surgical History Status post transcatheter aortic valve replacement (TAVR) using bioprosthesis (~04/2021) Complicated by extravasation of contrast on iliofemoral angiography. 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 Son No problems noted. Social History Smoking/Tobacco Use Status: Former Tobacco Use Quit Date: 08/08/72 Tobacco: How many years used: 4 Second Hand Exposure: No Smoking risk assessment performed?: Yes Alcohol Intake: never Drug use: Never Substance use type: does not use Caregiver/Support person: No Household members: spouse Housing: house Communication Needs: None current occupation: [employer] Pets and animals: Yes Pets and animals: dog(s) Sexually active: Yes Do you think of yourself as: straight/heterosexual Current gender identity: female What is your relationship status?: How often do you talk on the phone with friends or family?: twice per week How often do you get together with friends or relatives?: three or more times per week How often do you attend advent or restorationism services?: 4 or more times per year Do you belong to any clubs or organized social groups?: no Panel score (0-1 are the most socially isolated patients): 3 What type of physical activity do you participate in: walking Duration: < 15 minutes/day Frequency: 1-2 times per week Radha/Amish: Restoration Special radha needs: No Seatbelt use: always Drive intox or ride w/intox local intermodal 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: No Do you feel safe at home: Yes Do you feel safe in your relationship?: Yes Additional Social history: at bedside Time Spent with Patient Time Spent with Patient: 45-69 minutes Time was spent: preparing to see the patient(eg.review tests), obtaining and/or reviewing separately otained hiistory, ordering medications,tests, procedures, referring, communicating with other health childcare center administrator, indepentently interpreting results, counseling the patient and care coordination
--- NOTE | 2023-09-27 16:14 | PDOC.CMDIS ---
Date of service: 09/27/23 Time of Service: 16:14 LACE Index Scoring Tool Questions: Length of Stay (in days): 2 Was the patient admitted via the E.D.?: Yes Comorbidities: Diabetes w/o Complication, Congestive Heart Failure, Chronic Pulmonary Disease and Liver or Renal Disease E.D. Visits: 1 Answers: Total Score: 11 Risk of Readmission: High Risk Care Management Discharge Plan Reason for Hospitalization: CHF Discharge Plan: RT completed exercise oximetry per MD order; Maliha retained her oxygen level while walking. No further needs identified. Maliha will be discharged home with no new services. She will follow up with her PCP and plan of care as prescribed and transport via private vehicle with family. Patient/Family Education Needs: Review discharge instructions, discuss Ask Me Three. SDOH Health Related Social Needs: No Data to Display
== END 2023-09-27 17:42 | disposition home or self-care (01) | DRG 291 ==
LOC: ER 23:41 → ICU 23:44 → MS 09-26 17:59
PROVIDERS: Family Medicine; Internal Medicine; Admitting Provider Internal Medicine; Emergency Provider Physician Assistant; PCP Family Medicine; Visit Provider Internal Medicine
DX: I13.0 Hypertensive heart and chronic kidney disease with heart failure and stage 1 through stage 4 chronic kidney disease, or unspecified chronic kidney disease (principal); I50.33 Acute on chronic diastolic (congestive) heart failure; J96.01 Acute respiratory failure with hypoxia; N18.4 Chronic kidney disease, stage 4 (severe); I44.2 Atrioventricular block, complete; Z68.42 Body mass index [BMI] 45.0-49.9, adult; E87.20 Acidosis, unspecified; E11.22 Type 2 diabetes mellitus with diabetic chronic kidney disease; I27.81 Cor pulmonale (chronic); Z79.4 Long term (current) use of insulin; I34.0 Nonrheumatic mitral (valve) insufficiency; G47.33 Obstructive sleep apnea (adult) (pediatric); Z66 Do not resuscitate; I48.91 Unspecified atrial fibrillation; Z95.0 Presence of cardiac pacemaker; Z95.3 Presence of xenogenic heart valve; E87.6 Hypokalemia; D50.0 Iron deficiency anemia secondary to blood loss (chronic); M1A.9XX0 Chronic gout, unspecified, without tophus (tophi); E03.9 Hypothyroidism, unspecified; E78.5 Hyperlipidemia, unspecified; E66.01 Morbid (severe) obesity due to excess calories; A08.4 Viral intestinal infection, unspecified; D72.819 Decreased white blood cell count, unspecified
CPT/HCPCS: 00123; 36415; 76604; 80048; 80053; 80076; 82805; 83690; 84145; 85027; 85652; 87040; 87637; 93306; 94618; 96365; 96375; 96376; 99285; 71045; 74177; 81003; 81015; 83605; 83735; 83880; 84484; 85007; 85025; 86140; 99223; 99233; 99239; J0131; J0780; J1815; J1940; J2270; J2405; J3490

== ENCOUNTER 2023-09-30 09:45 | Outpatient (CLI) | payer MEDICARE, SELFPAY ==
[2023-09-30 10:23] LABS: Vitamin B12 393 pg/mL (193-986)
[2023-09-30 10:25] LABS: Folate > 20.0 ng/mL (8.6-20.0)
== END 2023-09-30 09:46 | disposition home or self-care (01) ==
LOC: LBO 09:45
PROVIDERS: PCP Family Medicine; Visit Provider Internal Medicine
DX: D72.819 Decreased white blood cell count, unspecified (principal)
CPT/HCPCS: 36415; 82607; 82746

== ENCOUNTER 2023-10-10 23:16 | Inpatient (IN) | payer MEDICARE, SELFPAY ==
[2023-10-10] VITALS (7 sets, daily range): BP systolic 91–113; BP diastolic 41–43; PULSE 70–80; RESP 19–35; TEMP 35.9; O2SAT 92
--- NOTE | 2023-10-10 23:15 | DI.RAD_ITS ---
Exam(s) XR CHEST 1V IN DI DEPT EXAM: XR CHEST 1V IN DI DEPT CLINICAL HISTORY: SOB TECHNIQUE: 2D digital imaging was performed of the chest. One image was obtained. An AP view was ob tained. COMPARISON: CR,XR XR PORTABLE CHEST AP from 09/25/2023 FINDINGS: MEDIASTINUM: Normal. HEART: Enlarged. Valvular replacement. PULMONARY VASCULATURE: Pulmonary venous congestion. LUNGS: Interstitial infiltrates. No focal consolidating infiltrate. PLEURAL SPACE: No pleural effusion or pneumothorax. BONE:Within normal limits for the patient's age. OTHER FINDINGS:Normal. IMPRESSION: 1. Mild cardiomegaly and pulmonary venous congestion. 2. Diffuse interstitial infiltrates which may represent pulmonary edema or possibly pneumonitis. Ple ase correlate clinically. DATA REPOSITORY: RADIATION DOSE DELIVERED:
--- NOTE | 2023-10-10 23:15 | RT.EKG_ITS ---
APPROVED REPORT Exam: Resting ECG Reason for Exam: short of breath w/hx of chf Patient Location: E HR:72 bpm ECG Measurements Heart Rate [address] 204 P 165 QRSd 166 QRS -84 QT 465 T 90 QTc 511 Conclusion Sinus rhythm at a rate of 72 with a LBBB with appropriate ST discordance without acute ischemic mcconnell e.
[2023-10-10 23:39] LABS: HCT 34.6 % (36.0-46.0); HGB 10.6 g/dL (11.2-15.7); MCH 26.2 pg (27.0-33.0); MCHC 30.6 % (32.0-36.0); MCV 86 fL (80-95); RBC 4.04 10^6/uL (3.93-5.22); RDW 23.3 % (11.7-14.6); RDW-SD 70.5 fL; WBC 4.83 10^3/uL (4.4-10.8)
--- NOTE | 2023-10-10 23:59 | ED.GENADUL_ITS ---
Discharge Plan Disposition Patient Disposition: Admit to [facility] Condition: Improving Discharge Details Chief Complaint: SOB Clinical Impression: Acute on chronic heart failure with preserved ejection fraction (HFpEF), Elevated troponin, Hypoxia Admit Date/Time: 10/11/23 01:18 Admit Provider: Yan Caba Attending Provider: Yan Caba Primary Care Provider: Kimberly Nicole ED Provider: Kenisha Santana General Date/Time Provider Initiated Documentation: 10/10/23 23:20 . HPI Narrative: The patient is a 77-year-old female with a history of congestive heart failure, chronic kidney disease, cor pulmonale, complete heart block status post pacemaker placement who comes to the emergency department for shortness of breath. The patient reports she has had increasing shortness of breath for the past 3 days. Reports this is worse with exertion and when she lies flat. Denies any new or worsening leg pain or leg swelling. Reports she has been compliant with all of her medications. Reports she developed chest soreness this evening and finally called 911. Reports she does not use supplemental oxygen at home. Reports has been taking all of her medications as prescribed. Admits to feeling nauseous but denies vomiting. Denies abdominal pain. Denies changes in bowel habits or any urinary symptoms. Related Data Home Medications Medication Instructions Recorded Confirmed acetaminophen 325 mg tablet 325 - 650 mg (1 - 2 x 325 mg) PO 05/24/18 10/10/23 (Tylenol) Q4H PRN PRN pain #30 tabs magnesium chloride 64 mg 64 mg PO BID #180 tabs 04/07/21 10/10/23 (magnesium chloride) tablet,delayed release cholecalciferol (vitamin D3) 25 1,000 units PO DAILY #0 tabs 06/30/22 10/10/23 mcg (1,000 unit) tablet metolazone 5 mg tablet 5 mg PO .COMPLEX #60 tabs 08/23/22 10/10/23 diabetic extra depth shoes #1 ea 10/13/22 09/30/23 blood sugar diagnostic #400 ea 11/20/22 09/30/23 simvastatin 10 mg tablet 10 mg PO QPM #90 tabs 12/09/22 10/10/23 cyanocobalamin (vitamin B-12) 500 1,000 mcg (2 x 500 mcg) PO DAILY 12/15/22 10/10/23 mcg tablet (Vitamin B-12) #60 tabs blood-glucose sensor (Dexcom G6 #3 ea 01/14/23 09/30/23 Sensor device) blood-glucose transmitter (Dexcom #1 ea 01/14/23 09/30/23 G6 Transmitter device) insulin aspart U-100 100 unit/mL See Rx Instructions subcut TID #15 01/14/23 10/10/23 (3 mL) subcutaneous pen (Novolog mL FlexPen U-100 Insulin aspart) blood-glucose meter,continuous #1 ea 02/21/23 09/30/23 (Dexcom G6 Fire Sprinkler Apparatus Inspector) metoprolol succinate 200 mg 100 mg PO DAILY 02/25/23 10/10/23 tablet,extended release 24 hr sucralfate 1 gram tablet 1 g PO AC & HS #120 tabs 03/07/23 10/10/23 pen needle, diabetic 31 gauge x #100 ea 04/13/23 09/30/23/16 (BD Ultra-Fine Mini Pen Needle) torsemide 20 mg tablet 40 mg (2 x 20 mg) PO DAILY #60 tabs 05/12/23 10/10/23 clotrimazole 1 % topical cream 1 applic topical BID #45 grams 07/13/23 10/10/23 apixaban 5 mg tablet (Eliquis) 5 mg PO BID #60 tabs 07/14/23 10/10/23 potassium chloride 20 mEq 40 meq (2 x 20 mEq) PO BIDWMEAL 07/25/23 10/10/23 tablet,extended release(part/cryst) #120 tabs levothyroxine 75 mcg tablet 37.5 mcg (1/2 x 75 mcg) PO 09/08/23 10/10/23 DAILY@0600 #15 tabs insulin glargine 100 unit/mL (3 25 unit (0.25 mL) subcut QPM #15 mL 09/14/23 10/10/23 mL) subcutaneous pen spironolactone 25 mg tablet 25 mg PO DAILY #90 tabs 09/27/23 10/10/23 colchicine 0.6 mg tablet 0.6 mg PO DAILY gout #30 tabs 09/30/23 10/10/23 Previous Rx's Medication Instructions Recorded acetaminophen 325 mg tablet 325 - 650 mg (1 - 2 x 325 mg) PO 05/24/18 (Tylenol) Q4H PRN PRN pain #30 tabs magnesium chloride 64 mg 64 mg PO BID #180 tabs 04/07/21 (magnesium chloride) tablet,delayed release cholecalciferol (vitamin D3) 25 1,000 units PO DAILY #0 tabs 06/30/22 mcg (1,000 unit) tablet metolazone 5 mg tablet 5 mg PO .COMPLEX #60 tabs 08/23/22 diabetic extra depth shoes #1 ea 10/13/22 blood sugar diagnostic #400 ea 11/20/22 simvastatin 10 mg tablet 10 mg PO QPM #90 tabs 12/09/22 cyanocobalamin (vitamin B-12) 500 1,000 mcg (2 x 500 mcg) PO DAILY 12/15/22 mcg tablet (Vitamin B-12) #60 tabs blood-glucose sensor (Dexcom G6 #3 ea 01/14/23 Sensor device) blood-glucose transmitter (Dexcom #1 ea 01/14/23 G6 Transmitter device) insulin aspart U-100 100 unit/mL See Rx Instructions subcut TID #15 01/14/23 (3 mL) subcutaneous pen (Novolog mL FlexPen U-100 Insulin aspart) blood-glucose meter,continuous #1 ea 02/21/23 (Dexcom G6 Fire Sprinkler Apparatus Inspector) sucralfate 1 gram tablet 1 g PO AC & HS #120 tabs 03/07/23 pen needle, diabetic 31 gauge x #100 ea 04/13/23/16 (BD Ultra-Fine Mini Pen Needle) torsemide 20 mg tablet 40 mg (2 x 20 mg) PO DAILY #60 tabs 05/12/23 clotrimazole 1 % topical cream 1 applic topical BID #45 grams 07/13/23 apixaban 5 mg tablet (Eliquis) 5 mg PO BID #60 tabs 07/14/23 potassium chloride 20 mEq 40 meq (2 x 20 mEq) PO BIDWMEAL 07/25/23 tablet,extended release(part/cryst) #120 tabs levothyroxine 75 mcg tablet 37.5 mcg (1/2 x 75 mcg) PO 09/08/23 DAILY@0600 #15 tabs insulin glargine 100 unit/mL (3 25 unit (0.25 mL) subcut QPM #15 mL 09/14/23 mL) subcutaneous pen spironolactone 25 mg tablet 25 mg PO DAILY #90 tabs 09/27/23 colchicine 0.6 mg tablet 0.6 mg PO DAILY gout #30 tabs 09/30/23 Allergies Allergy/AdvReac Type Severity Reaction Status Date / Time ceftriaxone Allergy Intermediate Hives Verified 10/10/23 23:22 aspirin Allergy Hives Verified 10/10/23 23:22 Penicillins Allergy Hives Verified 10/10/23 23:22 tetracycline Allergy Hives Verified 10/10/23 23:22 adhesive AdvReac Intermediate Topical Verified 10/10/23 23:22 Irritation General Stated Complaint: SOB BROOKE: 3 Review of Systems Narrative: Review of systems are negative except as mentioned. Exam Const Other: The patient is in respiratory distress. She is tachypneic. She is speaking in monosyllabic sentences. The patient has coarse lung sounds throughout. Heart is regular in rate and rhythm. Abdomen is soft with normal bowel sounds and nontender throughout. The patient has symmetric lower extremity edema without calf tenderness. Skin is warm and dry. She has no facial asymmetry. She has equal strength and sensation to bilateral upper and lower extremities. Course Patient came in in respiratory distress. According to EMS the patient had oxygen saturation in the 80s on room air. She was started on 6 L by nasal cannula per EMS with improvement. She is continued on 6 L here. Cardiac workup has been started. Because she reports she has been compliant with all of her medication including her Eliquis I do have a lower suspicion for pulmonary embolism as etiology of her symptoms. EKG is done and that is nondiagnostic. Chest x-ray is done and is concerning for edema. Her blood work is slowly getting resulted and I found her BNP to be significantly elevated. Overall her clinical picture is concerning for CHF. I did start her on IV Lasix. In spite of the supplemental oxygen by nasal cannula and maintaining her oxygen saturation with that she reports that she continues to have chest soreness. She rates this as a 4 out of 10 sensation. Her most recent blood pressure so systolic blood pressure of 100 therefore has states start her nitroglycerin so instead I ordered fentanyl, 25 mcg intravenously. The patient reports allergy to aspirin with hives so she is not given aspirin. Rest of her blood work shows that she does have mild troponin elevation. This is not newly elevated however from last blood work in August. Informed patient and her of my recommendation for hospitalization and they agree. Prior to the patient going up to the ICU repeat EKG had been done since repeat troponin shows that it has increased slightly from initial. Repeat EKG shows that she continues to be in sinus rhythm at a rate of 70 with a LBBB with appropriate ST discordance without acute ischemic change. Vital Signs Vital signs: Vital Signs Temperature 35.9 C L 10/10/23 23:17 Pulse 80 10/10/23 23:17 Respiratory Rate 22 10/10/23 23:17 Pulse Oximetry 92 10/10/23 23:17 Temperature 35.9 C L 10/10/23 23:17 Temperature Source Temporal Artery Scan 10/10/23 23:17 Pulse 80 10/10/23 23:17 Pulse 78 10/10/23 23:20 Respiratory Rate 19 10/10/23 23:20 Respiratory Effort Short of Breath 10/10/23 23:20 Respiratory Depth Normal 10/10/23 23:20 Respiratory Pattern Normal 10/10/23 23:20 Pulse Oximetry 92 10/10/23 23:17 Oxygen Delivery Method Nasal Cannula 10/10/23 23:17 Oxygen Flow Rate 6 10/10/23 23:17 Pain Level 4 10/10/23 23:17 Lab/Test Results Lab/Test Results: Laboratory Tests Range/Units 10/10/23 23:36 COVID-19 Source Cancelled SARS-CoV-2 (PCR) Cancelled Influenza Type A (PCR) Cancelled Influenza Type B (PCR) Cancelled RSV (PCR) Cancelled Medical Decision Making Imaging Data Radiologic Study: Imaging: X-Ray Radiologist's impression: Chest x-ray: Interstitial opacities and mild basilar opacities which may represent pneumonitis versus edema. ECG Data Interpretation: Sinus rhythm at a rate of 72 with a LBBB with appropriate ST discordance without acute ischemic change. Quality:SDOH Health Related Social Needs: No Data to Display Critical Care Time Critical Care Time Critical Care Time: Yes Total Critical Care Time: 25 Attestation: I came to evaluate the patient immediately upon arrival. She was hypoxic per EMS upon their arrival and had improvement of ox saturation on 6 L via supplemental oxygen through nasal cannula. She was trialed on 3 L but was not maintaining oxygen saturation appropriately with this continued to be in the 80s so she is bumped up to 6 L. Cardiac workup was started. She is found to be in congestive heart failure. She has started on IV Lasix. At this point the patient has overall clinical improvement now able to speak in full sentences she still required. Supplemental oxygen by nasal cannula and had oxygen desaturation with minimal exertion. Fortunately she was improved enough to the point that did not require BiPAP. Her troponin is also found to be elevated. This is not newly elevated however on upon review of prior lab values. Her EKG was nondiagnostic which is reassuring. She is closely observed. PFSH All Active Problems (Updated 10/11/23 @ 02:44 by Kenisha Santana DO) Hypoxia (Acute) Elevated troponin (Acute) NSTEMI (non-ST elevated myocardial infarction) (Acute) Insulin-requiring or dependent type II diabetes mellitus (Chronic) Leucopenia (Chronic) Acute hypoxemic respiratory failure (Acute) Cor pulmonale (chronic) (Acute) Acute on chronic heart failure with preserved ejection fraction (HFpEF) (Acute) Ischemia of finger (Acute) (HFpEF) heart failure with preserved ejection fraction (Acute) Cardiac pacemaker (Acute) [place]30[place] [facility] [place] [facility] AV node ablation causing CHB. Medtronic micra [id number] SERIAL # [id number] Complete heart block (Acute 02/2023) 02/19/23 [place] [facility] Completely dependent on ventricular pace maker. V paced leadless pacer [place] [facility] 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 Obstructive sleep apnea syndrome (Chronic 09/26/12) DX SEP 2012 AT [facility]; wears CPAP machine. Hypothyroidism (Chronic 12/06/14) Hyperlipidemia (Acute) Essential hypertension (Chronic 08/13/13) Obesity, morbid (Chronic) a. BMI of 52 Medical History Encounter for insertion of cardiac resynchronization therapy pacemaker Right ventricular [place] [facility]. -hb 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 tachycardia Diabetic neuropathy Pre-ulcerative corn or callous Bilateral bunions Severe aortic stenosis GI bleed had melena transiently in 02/2021; unable to be evaluated due to AV stenosis. 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 Asthma Gastroesophageal reflux disease Surgical History Status post transcatheter aortic valve replacement (TAVR) using bioprosthesis (~04/2021) Complicated by extravasation of contrast on iliofemoral angiography. 2 covered stents placed in the artery EIA extending into the R GRIP History of open sigmoidectomy Status post abdominal hysterectomy Status post appendectomy Status post total bilateral knee replacement S/P colonoscopy (~07/10/18) History of esophagogastroduodenoscopy (EGD) (~05/2018) 07/10/18 Family History Mother , 65 Thoracic aneurysm, ruptured Personal history of malignant neoplasm LYMPHOMA Father , 64 Heart disease Myocardial infarction Stroke Maternal Grandfather , 80 Heart disease Stroke Paternal Grandfather , 65 Heart disease Maternal Grandmother , 83 Heart disease Paternal Grandmother , 40 Cancer Son No problems noted. Son No problems noted. 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 Pets and animals: Yes Pets and animals: dog(s) Sexually active: Yes Do you think of yourself as: straight/heterosexual Current gender identity: female What is your relationship status?: How often do you talk on the phone with friends or family?: twice per week How often do you get together with friends or relatives?: three or more times per week How often do you attend muslim or episcopalian services?: 4 or more times per year Do you belong to any clubs or organized social groups?: no Panel score (0-1 are the most socially isolated patients): 3 What type of physical activity do you participate in: walking Duration: < 15 minutes/day Frequency: 1-2 times per week Radha/Scientology: Worship Special radha needs: No Seatbelt use: always Drive intox or ride w/intox boat driver: No Do you feel safe at home: Yes Do you feel safe in your relationship?: Yes Additional Social history: at bedside
[2023-10-11] VITALS (86 sets, daily range): BP systolic 90–122; BP diastolic 34–78; PULSE 68–84; RESP 17–35; TEMP 36.3–37; O2SAT 6–98
[2023-10-11] LABS: ALT 19 U/L (14-59); AST 25 U/L (15-37); Albumin 3.3 g/dL (3.4-5.0); Alkaline Phosphatase 79 U/L (46-116); Anion Gap 13.9 mmol/L (3-11); BUN 58 mg/dL (7-18); Bilirubin, Total 0.5 mg/dL (0.2-1.0); CO2 23.1 mmol/L (21.0-32.0); CREATININE 2.2 mg/dL (0.55-1.02); Calcium 9.8 mg/dL (8.5-10.1); Chloride 100 mmol/L (98-107); Estimated GFR 22.67 (mL/min/1.73m2); Glucose 216 mg/dL (74-106); NT-proBNP 11123 pg/mL (<300); Potassium 4.5 mmol/L (3.5-5.1); Sodium 137 mmol/L (136-145)
--- NOTE | 2023-10-11 | DI.US_ITS ---
APPROVED REPORT EXAM: Comprehensive 2D, Doppler, and color-flow Echocardiogram Patient Location: In-Patient Room/Bed: [id number] Dry Roaster: Ema Bhardwaj RDCS (AE) Indications: NSTEMI Limited follow up echo exam Other Information Study Quality: Fair. Technically limited study due to body habitus, inability to position patient exa m done supine bedside icu. Conclusion Moderate concentric left ventricular hypertrophy. Ejection fraction appears within the range of norm al, approximately 55% without segmental wall motion abnormalities Both atria are enlarged There is mitral annular calcification and thickened mitral leaflets Wall motion Left Ventricle The left ventricle is normal size. The overall left ventricular systolic function appears normal. Mod erate concentric left ventricular hypertrophy. LVEF is 53%. 2D Dimensions IVSD d PLAX 1.29 cm F: 0.6-1.0 LVPW d PLAX 1.30 cm F: 0.6 - 1.0 LVID d PLAX 4.73 cm F: 3.8 - 5.2 LVDs 3.48 cm F: 2.2 - 3.5 LV EF Teichholz 51.9 % FS 26.52 % LV EDV (Teich) 103.9 mL LV ESV (Teich) 50.0 mL Auto EF LV EDV A4C 90.0 mL LV EDV A2C 147.7 mL LV EDV BP 118.7 mL LV ESV A4C 43.7 mL LV ESV A2C 72.4 mL LV ESV BP 55.3 mL LVEF(%) A4C 51.4 % LVEF(%) A2C 51.0 % LVEF(%) BP 53.4 % LV SV A4C 46.3 ml LV SV A2C 75.3 ml LV SV BP 63.4 ml LV CO A4C 3.3 L/min LV CO A2C 5.3 L/min LV CO BP 4.3 L/min HR A4C 70.87 BPM HR A2C 70.43 BPM LV EDV Index (BP)
[2023-10-11 00:01] LABS: Troponin I 67 ng/L (< or =60)
[2023-10-11 00:16] LABS: Absolute Lymphocyte Count 1.21 10^3/uL (1.2-3.4); Absolute Monocyte Count 0.34 10^3/uL (0.1-0.8); Absolute Neutrophil Count 3.14 10^3/uL (1.2-6.7); Atypical Lymphocytes % 7; Bands % 2; Platelet Count 52 10^3/uL (130-400)
[2023-10-11 00:17] LABS: Other Cells % 1
[2023-10-11 00:18] LABS: Diff Comment Manual Differential
[2023-10-11 00:19] LABS: Anisocytosis 2+; Hypochromasia 1+; Microcytosis 1+; Poikilocytes 1+; Polychromasia Present
[2023-10-11 00:32] LABS: COVID-19 PCR Negative (Negative); Influenza A PCR Negative (Negative); Influenza B PCR Negative (Negative); RSV PCR Negative (Negative)
[2023-10-11 00:33] LABS: Source Nasopharynx
--- NOTE | 2023-10-11 00:37 | DI.VRAD_ITS ---
PROCEDURE INFORMATION: Exam: XR Chest Exam date and time: 10/10/2023 11:57 PM Age: 77 years old Clinical indication: Shortness of breath; Patient HX: SOB TECHNIQUE: Imaging protocol: Radiologic exam of the chest. Views: 1 view. COMPARISON: CR XR PORTABLE CHEST AP 09/25/2023 10:34 PM FINDINGS: Lungs: Mild basilar opacities and interstitial thickening. Pleural spaces: No pleural effusion. No pneumothorax. Heart/Mediastinum: Grossly stable. Bones/joints: Unremarkable. IMPRESSION: Interstitial opacities and mild basilar opacities which may represent pneumonitis versus edema Dictated and Authenticated by: Julio Apple MD. Ordering:[id number] De MD
[2023-10-11] MEDS: Furosemide 40 MG/4 ML VIAL IVP (00:47)
[2023-10-11] MEDS: fentaNYL 100 MCG/2 ML VIAL 25 MCG IVP (00:47)
--- NOTE | 2023-10-11 01:22 | W.PM.HP.N ---
Date of service: 10/11/23 Time of Service: : Assessment and Plan Assessment and plan (1) Acute hypoxemic respiratory failure: Status: Acute Assessment and plan: Secondary to pulmonary edema from acute on chronic heart failure. Supportive care with high flow oxygen and/or BiPAP, IV diuretics. Patient is a DNR/DNI rest of treatment as outlined under problems #2 and 3. I reaffirmed w/ her that she wants DNR/DNI status. However, she does want treatment of her CAD including transfer for cardiac cath and PCI if indicated. I will discuss / [facility] cardiology. Addendum: case discussed w/ Dr. Peterson and / [facility] cardiology who recommended platelet transfusion to >50,000 then heparinize; continue diuresis, NTG drip and [facility] cards has accepted her pending bed availability to service of Dr. Isac Arias Critical care time spent interviewing and examining the patient, reviewing studies, discussing case with patient's nurse and consulting physicians was 60 minutes (2) Acute on chronic heart failure with preserved ejection fraction (HFpEF): Status: Acute Assessment and plan: Continue low-dose beta-piotr, begin Lasix drip to diurese her to euvolemia, repeat limited echo in the morning looking for any wall motion abnormalities once she is adequately diuresed continue with goal-directed therapy with spironolactone diuretics and consider addition of Entresto. (3) NSTEMI (non-ST elevated myocardial infarction): Status: Acute Assessment and plan: Type II demand ischemia secondary to CHF versus primary NC. Consider heparin drip for 48 hours and holding apixaban. Consider Plavix, low-dose metoprolol once she is adequately diuresed. Platelet count low at 52.000, therefore heparin not started; patient is allergic to aspirin; plavix not initiated. will discuss further / [facility] cards. Patient would like cath and PCI if needed to treat her symptoms. (4) Thrombocytopenia: Status: Chronic Assessment and plan: unclear etiology; no record of heparin or enoxaparin exposure while hospitalized here last month. She was hospitalized at [facility] about 3 to 4 weeks ago. she says she was treated for pneumonia w/ sepsis but does not recall receiving heparin or lovenox; possible DIC; will check d-dimer, fibrinogen levels, coagulation studies (aPTT, protime), LDH (5) Mitral regurgitation and aortic stenosis: Status: Acute Assessment and plan: s/p TAVR, has moderate to severe mitral regurgitation (6) Complete heart block: Status: Acute Assessment and plan: s/p pacemaker; pacemaker dependent (7) Cor pulmonale (chronic): Status: Acute (8) CKD (chronic kidney disease) stage 4, GFR 15-29 ml/min: Status: Acute (9) Hyperlipidemia: Status: Acute Assessment and plan: Check lipid panel in the morning consider upgrading the dose of her simvastatin possibly changed to high-dose Lipitor Qualifiers: Hyperlipidemia type: unspecified Qualified Code(s): E78.5 - Hyperlipidemia, unspecified (10) Hypothyroidism: Status: Chronic Assessment and plan: Check TSH and free T4, continue current dose of levothyroxine. Qualifiers: Hypothyroidism type: acquired Qualified Code(s): E03.9 - Hypothyroidism, unspecified (11) Essential hypertension: Status: Chronic Assessment and plan: Treat CHF as noted above. (12) Diabetic neuropathy: Qualifiers: Diabetes mellitus complication detail: diabetic polyneuropathy Diabetes mellitus type: due to underlying condition Qualified Code(s): E08.42 - Diabetes mellitus due to underlying condition with diabetic polyneuropathy (13) Insulin-requiring or dependent type II diabetes mellitus: Status: Chronic Assessment and plan: Continue her home regimen of basal bolus insulin and monitor blood sugars ACHS History of Present Illness History of Present Illness Chief Complaint: progressive shortness of breath Narrative: 77-year-old female with a history of type 2 diabetes mellitus requiring insulin, paroxysmal atrial fibrillation with prior ablation, severe aortic stenosis status post TAVR (April 2021), asthma, GERD, diverticulosis, diabetic neuropathy, history of SVT, cardiac resynchronization therapy with pacemaker who presents to the emergency department with symptoms of progressive dyspnea over the last 3 days now with orthopnea and PND and chest tightness. Patient was hypoxic with an O2 saturation 89% on room air upon EMS arrival. On arrival to emergency department she was on 6 L nasal cannula saturating at 92% she was afebrile with pulse of 80 respirations of 22. She was very tachypneic and speaking in single word responses for the ED provider. Patient admitted to the ED provider that she felt nauseous but had no abdominal pain or vomiting and was having chest soreness along with her dyspnea. Diagnostic workup included routine labs, EKG, chest x-ray. Routine labs showed normocytic anemia with hemoglobin 10.6 g hematocrit 34% low platelet count 52,000 and normal white count 4800. Chemistry profile showed elevated BUN and creatinine 58 and 2.2 with a glucose of 216 normal transaminases but elevated troponin I of 67 and a proBNP of 11,123. Delta troponin is pending at this time. Chest 2 Views was consistent with pulmonary edema and cardiomegaly. EKG appears to be LBBB pattern; appears to be ventricular paced w/ background of afib. When compared to her prior ECG of 08/30/2023 there appears to be no significant change. Treatment in the emergency department included Lasix 40 mg IV push and her chest pain was treated with fentanyl 25 mcg IV push. The ED provider requested hospitalist admission. As the patient's respiratory status and blood pressure status were tenuous and that she still required 6 L of oxygen to maintain her saturation and blood pressure was around 100 systolic it was decided to admit her to the intensive care unit given her positive troponins and pulmonary edema. Patient will be started on a Lasix drip. Patient is allergic to aspirin therefore aspirin was not given for NSTEMI. She is chronically anticoagulated with apixaban although we will consider holding her apixaban while we give her heparin for 48 hours for NSTEMI. Discussion will be held with cardiology regarding use of Plavix in this patient. This may be a demand ischemic event secondary to her CHF rather than a primary NC. Of note patient had a recent echocardiogram on 09/26/2023 that showed preserved left ventricular ejection fraction of 50 to 55% although she has moderate concentric LVH. Her transcatheter aortic valve replacement had a mean gradient of 37 with just a trace of aortic regurgitation however she has moderate to severe mitral regurgitation and she has significant pulmonary hypertension with RVSP of 60 mm. [facility] All Active Problems (Updated 10/11/23 @ 08:16 by Yan Caba MD) Thrombocytopenia (Chronic) Mitral regurgitation and aortic stenosis (Acute) Hypoxia (Acute) Elevated troponin (Acute) NSTEMI (non-ST elevated myocardial infarction) (Acute) Insulin-requiring or dependent type II diabetes mellitus (Chronic) Leucopenia (Chronic) Acute hypoxemic respiratory failure (Acute) Cor pulmonale (chronic) (Acute) Acute on chronic heart failure with preserved ejection fraction (HFpEF) (Acute) Ischemia of finger (Acute) (HFpEF) heart failure with preserved ejection fraction (Acute) Cardiac pacemaker (Acute) 04/30/23 placed at [facility] 02/18/23 after AV node ablation causing CHB. Med[employer]onic micra [id number] SERIAL # [id number] Complete heart block (Acute 02/2023) 02/19/23 Per [facility]. Completely dependent on ventricular pace maker. V paced leadless pacer placed at [facility]. 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 Obstructive sleep apnea syndrome (Chronic 09/26/12) DX SEP 2012 AT [facility]; wears CPAP machine. Hypothyroidism (Chronic 12/06/14) Hyperlipidemia (Acute) Essential hypertension (Chronic 08/13/13) Obesity, morbid (Chronic) a. BMI of 52 Medical History Encounter for insertion of cardiac resynchronization therapy pacemaker Right ventricular Per [facility] 02/19/23. -hb 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 tachycardia Diabetic neuropathy Pre-ulcerative corn or callous Bilateral bunions Severe aortic stenosis GI bleed had melena transiently in 02/2021; unable to be evaluated due to AV stenosis. Former smoker (08/16/14) 5 pack yr history Diverticulosis Peptic ulcer disease with hemorrhage hx x 3 Restless legs (01/18/13) sleep study low iron (not anemic) Osteoarthritis assisted current use of antiarrhythmic medical therapy (08/21/13) Colon polyp (07/10/18) 12/19 tubular adenoma Atrial fibrillation (06/23/12) 02/19 start Tikosyn 06/21 and 11/20 recurrent 2012 ablation at [facility] echo 2012 at [facility], normal LVEF and valves 05/2021 RVR, s/p RODRIGUEZ CV and change to amiodarone. Asthma Gastroesophageal reflux disease Surgical History Status post transcatheter aortic valve replacement (TAVR) using bioprosthesis (~04/2021) Complicated by extravasation of contrast on iliofemoral angiography. 2 covered stents placed in the artery EIA extending into the R [employer] History of open sigmoidectomy Status post abdominal hysterectomy Status post appendectomy Status post total bilateral knee replacement S/P colonoscopy (~07/10/18) History of esophagogastroduodenoscopy (EGD) (~05/2018) 07/10/18 Family History Mother , 65 Thoracic aneurysm, ruptured Personal history of malignant neoplasm LYMPHOMA Father , 64 Heart disease Myocardial infarction Stroke Maternal Grandfather , 80 Heart disease Stroke Paternal Grandfather , 65 Heart disease Maternal Grandmother , 83 Heart disease Paternal Grandmother , 40 Cancer Son No problems noted. Son No problems noted. 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 Pets and animals: Yes Pets and animals: dog(s) Sexually active: Yes Do you think of yourself as: straight/heterosexual Current gender identity: female What is your relationship status?: How often do you talk on the phone with friends or family?: twice per week How often do you get together with friends or relatives?: three or more times per week How often do you attend anglican or baptist services?: 4 or more times per year Do you belong to any clubs or organized social groups?: no Panel score (0-1 are the most socially isolated patients): 3 What type of physical activity do you participate in: walking Duration: < 15 minutes/day Frequency: 1-2 times per week Radha/Spiritism: Latter Day Special radha needs: No Seatbelt use: always Drive intox or ride w/intox van driver: No Do you feel safe at home: Yes Do you feel safe in your relationship?: Yes Additional Social history: at bedside Meds Allergies and Home Medications Allergies Allergy/AdvReac Type Severity Reaction Status Date / Time ceftriaxone Allergy Intermediate Hives Verified 03/04/24 23:22 aspirin Allergy Hives Verified 10/10/23 23:22 Penicillins Allergy Hives Verified 10/10/23 23:22 tetracycline Allergy Hives Verified 10/10/23 23:22 adhesive AdvReac Intermediate Topical Verified 10/10/23 23:22 Irritation Home Medications Medication Instructions Recorded Confirmed Type acetaminophen 325 mg tablet 325 - 650 mg (1 - 2 x 325 mg) PO 05/24/18 10/10/23 Rx (Tylenol) Q4H PRN PRN pain #30 tabs magnesium chloride 64 mg 64 mg PO BID #180 tabs 04/07/21 10/10/23 Rx (magnesium chloride) tablet,delayed release cholecalciferol (vitamin D3) 25 1,000 units PO DAILY #0 tabs 06/30/22 10/10/23 Rx mcg (1,000 unit) tablet metolazone 5 mg tablet 5 mg PO .COMPLEX #60 tabs 08/23/22 10/10/23 Rx diabetic extra depth shoes #1 ea 10/13/22 09/30/23 Rx blood sugar diagnostic #400 ea 11/20/22 09/30/23 Rx simvastatin 10 mg tablet 10 mg PO QPM #90 tabs 12/09/22 10/10/23 Rx cyanocobalamin (vitamin B-12) 500 1,000 mcg (2 x 500 mcg) PO DAILY 12/15/22 10/10/23 Rx mcg tablet (Vitamin B-12) #60 tabs blood-glucose sensor (Dexcom G6 #3 ea 01/14/23 09/30/23 Rx Sensor device) blood-glucose transmitter (Dexcom #1 ea 01/14/23 09/30/23 Rx G6 Transmitter device) insulin aspart U-100 100 unit/mL See Rx Instructions subcut TID #15 01/14/23 10/10/23 Rx (3 mL) subcutaneous pen (Novolog mL FlexPen U-100 Insulin aspart) blood-glucose meter,continuous #1 ea 02/21/23 09/30/23 Rx (Dexcom G6 Supervisor Color Paste Mixing) metoprolol succinate 200 mg 100 mg PO DAILY 02/25/23 10/10/23 History tablet,extended release 24 hr sucralfate 1 gram tablet 1 g PO AC & HS #120 tabs 03/07/23 10/10/23 Rx pen needle, diabetic 31 gauge x #100 ea 04/13/23 09/30/23 Rx 3/16 (BD Ultra-Fine Mini Pen Needle) torsemide 20 mg tablet 40 mg (2 x 20 mg) PO DAILY #60 tabs 05/12/23 10/10/23 Rx clotrimazole 1 % topical cream 1 applic topical BID #45 grams 07/13/23 10/10/23 Rx apixaban 5 mg tablet (Eliquis) 5 mg PO BID #60 tabs 07/14/23 10/10/23 Rx potassium chloride 20 mEq 40 meq (2 x 20 mEq) PO BIDWMEAL 07/25/23 10/10/23 Rx tablet,extended release(part/cryst) #120 tabs levothyroxine 75 mcg tablet 37.5 mcg (1/2 x 75 mcg) PO 09/08/23 10/10/23 Rx DAILY@0600 #15 tabs insulin glargine 100 unit/mL (3 25 unit (0.25 mL) subcut QPM #15 mL 09/14/23 10/10/23 Rx mL) subcutaneous pen spironolactone 25 mg tablet 25 mg PO DAILY #90 tabs 09/27/23 10/10/23 Rx colchicine 0.6 mg tablet 0.6 mg PO DAILY gout #30 tabs 09/30/23 10/10/23 Rx Results Imaging EKG: report reviewed and image reviewed (ventricular paced rhythm w/ background of afib) Labs 10/11/23 05:05 10/11/23 05:05 Labs: Laboratory Results - last 24 hr 10/10/23 10/10/23 10/10/23 23:31 23:36 23:51 WBC 4.83 RBC 4.04 Hgb 10.6 L Hct 34.6 L MCV 86 MCH 26.2 L MCHC 30.6 L RDW 23.3 H Plt Count 52 L MPV Immature Gran % See Differential Neutrophils % 63.0 Band Neutrophils % 2 Lymphocytes % 18.0 Atypical Lymphs % 7 Monocytes % 7.0 Eosinophils % 2.0 Basophils % 0.0 Other Cells % 1 Nucleated RBC % 2.0 H Absolute Neutrophils 3.14 Absolute Lymphocytes 1.21 Absolute Monocytes 0.34 Absolute Eosinophils 0.10 Absolute Basophils 0.00 RBC Morphology See Below Polychromasia Present Hypochromasia 1+ Poikilocytosis 1+ Anisocytosis 2+ Microcytosis 1+ Sodium 137 Potassium 4.5 Chloride 100 Carbon Dioxide 23.1 Anion Gap 13.9 H BUN 58 H Creatinine 2.2 H Est GFR (CKD-EPI 2020) 22.67 Glucose 216 H Calcium 9.8 Total Bilirubin 0.5 AST 25 ALT 19 Alkaline Phosphatase 79 Troponin I 67 H* NT-Pro-B Natriuret Pep 44277 H Total Protein 8.0 Albumin 3.3 L COVID-19 Source Cancelled Nasopharynx SARS-CoV-2 (PCR) Cancelled Negative Influenza Type A (PCR) Cancelled Negative Influenza Type B (PCR) Cancelled Negative RSV (PCR) Cancelled Negative Last Vital Signs Temp 35.9 C L 10/10/23 23:17 Pulse 80 10/10/23 23:17 Resp 19 10/10/23 23:20 Pulse Ox 92 10/10/23 23:17 Time Spent Time spent with Patient: 55-74 minutes Time was spent: preparing to see the patient(eg.review tests), obtaining and/or reviewing separately otained hiistory, ordering medications,tests, procedures, referring, communicating with other health healthcare business analyst, indepentently interpreting results, counseling the patient and care coordination
[2023-10-11 01:39] LABS: Troponin I 74 ng/L (< or =60)
[2023-10-11 01:45] LABS: Magnesium 2.1 mg/dL (1.8-2.4)
--- NOTE | 2023-10-11 01:45 | RT.EKG_ITS ---
APPROVED REPORT Exam: Resting ECG Reason for Exam: chest heaviness Patient Location: E HR:70 bpm ECG Measurements Heart Rate 70 AXIS NC [id number] P [id number] QRSd 170 QRS -83 QT 473 T 97 QTc 513 Conclusion Sinus rhythm at a rate of 70 with a LBBB with appropriate ST discordance without acute ischemic mcconnell e, similar to prior EKG done earlier today.
[2023-10-11] MEDS: nitroGLYcerin 2% 1 INCH/1 GM PKT 0.5 GM TP (03:09)
--- NOTE | 2023-10-11 04:58 | NUR.NOTE ---
Nursing Note: Pt found to have dried blood on her hands, mouth and in a cup bedside. On assessment a small open area was noted on the inside of the R cheek mucosa. Pt is unaware of having injured herself and bleeding appears stopped for now.
[2023-10-11 05:35] LABS: Abs Immature Grans 0.04 10^3/uL (0.0-0.06); HCT 34.5 % (36.0-46.0); HGB 10.5 g/dL (11.2-15.7); MCH 26.3 pg (27.0-33.0); MCHC 30.4 % (32.0-36.0); MCV 87 fL (80-95); MPV 9.8 fL (8.0-11.0); RBC 3.99 10^6/uL (3.93-5.22); RDW 23.1 % (11.7-14.6); RDW-SD 70.2 fL; WBC 4.88 10^3/uL (4.4-10.8)
[2023-10-11 05:58] LABS: Calculated LDL 92 mg/dL (<100); Cholesterol 168 mg/dL (<200); HDL Cholesterol 42 mg/dL (40-60); Triglyceride 173 mg/dL (<150)
[2023-10-11 06:01] LABS: ALT 18 U/L (14-59); AST 22 U/L (15-37); Albumin 3.3 g/dL (3.4-5.0); Alkaline Phosphatase 80 U/L (46-116); Anion Gap 12.3 mmol/L (3-11); BUN 58 mg/dL (7-18); Bilirubin, Total 0.6 mg/dL (0.2-1.0); CO2 25.7 mmol/L (21.0-32.0); Chloride 100 mmol/L (98-107); Estimated GFR 25.41 (mL/min/1.73m2); Glucose 142 mg/dL (74-106); Potassium 3.6 mmol/L (3.5-5.1); Sodium 138 mmol/L (136-145); TSH 4.76 uIU/Ml (0.36-3.74); Total Protein 7.9 g/dL (6.4-8.2)
[2023-10-11 06:04] LABS: Troponin I 384 ng/L (< or =60)
[2023-10-11 06:16] LABS: Absolute Eosinophil Count 0.15 10^3/uL (0.0-0.7); Absolute Neutrophil Count 2.64 10^3/uL (1.2-6.7); Atypical Lymphocytes % 4; Bands % 4; Other Cells % 1
[2023-10-11] MEDS: Metoprolol 25 MG TAB PO ×2 (06:16→12:07)
[2023-10-11 06:17] LABS: Anisocytosis 2+; Diff Comment Manual Differential; Polychromasia Present
[2023-10-11] MEDS: Levothyroxine 75 MCG TAB 37.5 MCG PO (06:17)
[2023-10-11 06:18] LABS: Platelet Count 46 10^3/uL (130-400); Poikilocytes 2+
[2023-10-11 06:19] LABS: Absolute Lymphocyte Count 0.68 10^3/uL (1.2-3.4); Absolute Monocyte Count 1.27 10^3/uL (0.1-0.8)
--- NOTE | 2023-10-11 06:30 | RT.EKG_ITS ---
APPROVED REPORT Exam: Resting ECG Reason for Exam: chest pain, NSTEMI Patient Location: I HR:70 bpm ECG Measurements Heart Rate 70 AXIS WI [id number] P [id number] QRSd 186 QRS -78 QT 480 T 98 QTc 519 Conclusion Atrial fibrillation...V-rate 69- 70, irreg A-activity Ventricular premature complex...V complex w/ short R-R interval ventricular pacing
[2023-10-11] MEDS: nitroGLYcerin in D5W 50 MG/250 ML BTL IV (07:01)
--- NOTE | 2023-10-11 08:32 | PDOC.CMIN ---
Date of service: 10/11/23 Time of Service: 08:32 Care Management Initial Assmt Initial Assessment REASON FOR HOSPITALIZATION:: hypoxic respiratory failure/CHF/pulmonary edema PREVIOUS FUNCTIONAL STATUS/SOCIAL/FAMILY SUPPORTS:: Maliha lives in a single family home in [facility] [facility] with her Marcell. They have 2 sons who both live locally. 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 Maliha is independent at baseline, drives and does not have any community services. She does use a cane occasionally at night. CURRENT FUNCTIONAL STATUS:: Maliha was sitting up in bed in the ICU when CM met with her. She was obviously having trouble breathing and could only speak in short phrases. Maliha informed CM that she had been sick for several days before she sought help, stating that she was too stubborn to call the doctor. Maliha is awaiting transfer to [facility] to address the NSTEMI she has had. Initially [facility] stated that the transfer would not happen until tomorrow, which disappointed Maliha. By noontime they had moved the time for transfer to today. ADVANCE DIRECTIVES:: On file. Marcell FORRESTER Has patient been provided with info about the portal/API?: Yes Did the patient sign up for the portal?: Yes CODE STATUS:: DNR/DNI INSURANCE COVERAGE / FINANCIAL ISSUES:: BC/BS Medicare Advantage CURRENT HOME/COMMUNITY SERVICES/EQUIPMENT:: uses a cane PRIMARY CARE PHYSICIAN:: Kimberly Nicole POTENTIAL DISCHARGE NEEDS:: follow up with PCP and plan of care PATIENT/FAMILY EDUCATION NEEDS:: Review of discharge instructions, activity, follow up plan, discuss Ask Me Three ANTICIPATED BARRIERS TO DISCHARGE:: bed availability at [facility] transport availability TRANSPORTATION:: via private vehicle with family PLAN:: Anticipate Maliha will be discharged home with no new services. She will follow up with her community providers and plan of care and transport with family. CM will follow and continue to assess for discharge needs. PFSH All Active Problems Thrombocytopenia (Chronic) Mitral regurgitation and aortic stenosis (Acute) Hypoxia (Acute) Elevated troponin (Acute) NSTEMI (non-ST elevated myocardial infarction) (Acute) Insulin-requiring or dependent type II diabetes mellitus (Chronic) Leucopenia (Chronic) Acute hypoxemic respiratory failure (Acute) Cor pulmonale (chronic) (Acute) Acute on chronic heart failure with preserved ejection fraction (HFpEF) (Acute) Ischemia of finger (Acute) (HFpEF) heart failure with preserved ejection fraction (Acute) Cardiac pacemaker (Acute) 04/30/23 placed at [facility] 02/18/23 after AV node ablation causing CHB. Medtronic micra [id number] SERIAL # [id number] Complete heart block (Acute 02/2023) 02/19/23 Per [facility]. Completely dependent on ventricular pace maker. V paced leadless pacer placed at [facility]. 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 Obstructive sleep apnea syndrome (Chronic 09/26/12) DX SEP 2012 AT [facility]; wears CPAP machine. Hypothyroidism (Chronic 12/06/14) Hyperlipidemia (Acute) Essential hypertension (Chronic 08/13/13) Obesity, morbid (Chronic) a. BMI of 52 Medical History Encounter for insertion of cardiac resynchronization therapy pacemaker Right ventricular Per [facility] 02/19/23. -hb 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 tachycardia Diabetic neuropathy Pre-ulcerative corn or callous Bilateral bunions Severe aortic stenosis GI bleed had melena transiently in 02/2021; unable to be evaluated due to AV stenosis. Former smoker (08/16/14) 5 pack yr history Diverticulosis Peptic ulcer disease with hemorrhage hx x 3 Restless legs (01/18/13) sleep study low iron (not anemic) Osteoarthritis emt intermediate current use of antiarrhythmic medical therapy (08/21/13) Colon polyp (07/10/18) 12/19 tubular adenoma Atrial fibrillation (06/23/12) 02/19 start Tikosyn 06/21 and 11/20 recurrent 2012 ablation at [facility] echo 2012 at [facility], normal LVEF and valves 05/2021 RVR, s/p RODRIGUEZ CV and change to amiodarone. Asthma Gastroesophageal reflux disease Surgical History Status post transcatheter aortic valve replacement (TAVR) using bioprosthesis (~04/2021) Complicated by extravasation of contrast on iliofemoral angiography. 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 Son No problems noted. 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[employer] Pets and animals: Yes Pets and animals: dog(s) Sexually active: Yes Do you think of yourself as: straight/heterosexual Current gender identity: female What is your relationship status?: How often do you talk on the phone with friends or family?: twice per week How often do you get together with friends or relatives?: three or more times per week How often do you attend episcopalian or cheondoism services?: 4 or more times per year Do you belong to any clubs or organized social groups?: no Panel score (0-1 are the most socially isolated patients): 3 What type of physical activity do you participate in: walking Duration: < 15 minutes/day Frequency: 1-2 times per week Radha/Shinto: Baptism Special radha needs: No Seatbelt use: always Drive intox or ride w/intox regional driver: No Do you feel safe at home: Yes Do you feel safe in your relationship?: Yes Additional Social history: at bedside Readmission Within the Past 30 Days Yes or No: Yes Date of First Admission Date of 1st Admission: 09/25/23 Date of this Admission Date of Admission: 10/11/23 This admission was: Through ED SDOH(Care Management) Screening Will the Patient Participate in the Screening?: Unable to obtain Do you worry about having a steady place to live?: no Problems where you live: no known problems In the past 12 months, have you had to go without electric, gas, oil or water in your home?: no Have you or anyone in your house had to go without enough food to eat?: no Has lack of transportation kept you from medical appointments or from doing things needed for daily living?: no Has anyone in your support network made you feel unsafe for any reason?: no
[2023-10-11 08:37] LABS: INR 1.5 (0.9-1.1); PTT Activated 26.9 sec (23.6-32.8); Prothrombin Time 14.4 sec (9.1-11.1)
[2023-10-11 08:38] LABS: LDH 406 U/L (81-234)
[2023-10-11 08:46] LABS: Troponin I 1037 ng/L (< or =60)
[2023-10-11 09:10] LABS: D-Dimer > 7500 ng/mlFEU (<500)
[2023-10-11] MEDS: Sucralfate 1 GM TAB PO ×2 (09:23→12:07)
[2023-10-11] MEDS: Magnesium Chloride 64 MG TABCR PO (09:23)
[2023-10-11] MEDS: Cholecalciferol (Vitamin D3) 1,000 UNIT TAB 1000 UNITS PO (09:23)
[2023-10-11] MEDS: Potassium Chloride 20 MEQ TABCR 40 MEQ PO (09:23)
[2023-10-11] MEDS: metOLazone 2.5 MG TAB 5 MG PO (09:24)
[2023-10-11] MEDS: Spironolactone 25 MG TAB PO (09:25)
[2023-10-11] MEDS: Cyanocobalamin 500 MCG TAB 1000 MCG PO (09:25)
[2023-10-11] MEDS: Colchicine 0.6 MG TAB PO (09:25)
[2023-10-11] MEDS: Clotrimazole 1% 15 GM TUBE TP (09:26)
[2023-10-11] MEDS: Insulin Aspart 300 UNITS/3 ML PEN SC ×3 (09:29→16:42)
--- NOTE | 2023-10-11 10:08 | W.CARDCONSUL ---
Date of service: 10/11/23 Time of Service: 10:08 Assessment and Plan Assessment and plan (1) NSTEMI (non-ST elevated myocardial infarction): Status: Acute (2) Acute hypoxemic respiratory failure: Status: Acute Assessment and plan: Patient has ongoing shortness of breath, decompensated heart failure, rising troponin and so far is not responding to diuretics or intravenous nitroglycerin. I would recommend transfer to [facility] as soon as feasible. She may require intubation for potential respiratory failure History of Present Illness History of Present Illness Chief Complaint: Shortness of breath and chest discomfort Narrative: This is 1 of multiple presentations for this 77-year-old woman who presented to the hospital with difficulty breathing and associated chest pressure. Her symptoms began about 3 days prior to arrival in the emergency room. She was felt to have decompensated heart failure and has been treated with a Lasix drip and also intravenous nitroglycerin. The case was discussed with [facility] and she is scheduled to be transferred there for further care it appears that she is to be transferred October 11. Patient was hospitalized back in September again with decompensated heart failure She has multiple longstanding cardiac issues. She has nonobstructive coronary disease, has had transcatheter aortic valve replacement, had atrial fibrillation and eventually underwent AV node ablation and placement of a leadless pacemaker. Current laboratories show elevated troponin, which is most likely a type II myocardial infarction . her troponin is increasing and is now 1037. She has new findings of thrombocytopenia Review of Systems Cardiovascular Cardiovascular: Reports as per HPI, Reports chest pain, Reports dyspnea, Reports dyspnea on exertion and Reports orthopnea Respiratory Respiratory: Reports dyspnea and Reports dyspnea on exertion PFSH All Active Problems Thrombocytopenia (Chronic) Mitral regurgitation and aortic stenosis (Acute) Hypoxia (Acute) Elevated troponin (Acute) NSTEMI (non-ST elevated myocardial infarction) (Acute) Insulin-requiring or dependent type II diabetes mellitus (Chronic) Leucopenia (Chronic) Acute hypoxemic respiratory failure (Acute) Cor pulmonale (chronic) (Acute) Acute on chronic heart failure with preserved ejection fraction (HFpEF) (Acute) Ischemia of finger (Acute) (HFpEF) heart failure with preserved ejection fraction (Acute) Cardiac pacemaker (Acute) 04/30/23 placed at [facility] 02/18/23 after AV node ablation causing CHB. Medtronic micra [id number] SERIAL # [id number] Complete heart block (Acute 02/2023) 02/19/23 Per [facility]. Completely dependent on ventricular pace maker. V paced leadless pacer placed at [facility]. 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 Obstructive sleep apnea syndrome (Chronic 09/26/12) DX SEP 2012 AT [facility]; wears CPAP machine. Hypothyroidism (Chronic 12/06/14) Hyperlipidemia (Acute) Essential hypertension (Chronic 08/13/13) Obesity, morbid (Chronic) a. BMI of 52 Medical History Encounter for insertion of cardiac resynchronization therapy pacemaker Right ventricular Per [facility] 02/19/23. -hb 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 tachycardia Diabetic neuropathy Pre-ulcerative corn or callous Bilateral bunions Severe aortic stenosis GI bleed had melena transiently in 02/2021; unable to be evaluated due to AV stenosis. Former smoker (08/16/14) 5 pack yr history Diverticulosis Peptic ulcer disease with hemorrhage hx x 3 Restless legs (01/18/13) sleep study low iron (not anemic) Osteoarthritis alf current use of antiarrhythmic medical therapy (08/21/13) Colon polyp (07/10/18) 12/19 tubular adenoma Atrial fibrillation (06/23/12) 02/19 start Tikosyn 06/21 and 11/20 recurrent 2013 ablation at [facility] echo 2012 at [facility], normal LVEF and valves 05/2021 RVR, s/p RODRIGUEZ CV and change to amiodarone. Asthma Gastroesophageal reflux disease Surgical History Status post transcatheter aortic valve replacement (TAVR) using bioprosthesis (~04/2021) Complicated by extravasation of contrast on iliofemoral angiography. 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 Son No problems noted. Social History Smoking/Tobacco Use Status: Former Tobacco Use Quit Date: 08/08/72 Tobacco: How many years used: 4 Second Hand Exposure: No Smoking risk assessment performed?: Yes Alcohol Intake: never Drug use: Never Substance use type: does not use Caregiver/Support person: No Household members: spouse Housing: house Communication Needs: None current occupation: [employer] Pets and animals: Yes Pets and animals: dog(s) Sexually active: Yes Do you think of yourself as: straight/heterosexual Current gender identity: female What is your relationship status?: How often do you talk on the phone with friends or family?: twice per week How often do you get together with friends or relatives?: three or more times per week How often do you attend sabianism or samaritan services?: 4 or more times per year Do you belong to any clubs or organized social groups?: no Panel score (0-1 are the most socially isolated patients): 3 What type of physical activity do you participate in: walking Duration: < 15 minutes/day Frequency: 1-2 times per week Radha/Mormon: Mosque Special radha needs: No Seatbelt use: always Drive intox or ride w/intox 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 Neck Other: Unable to assess JVP Resp Other: Poor air movement, decreased breath sounds at the bases Cardio Other: Heart is distant, brief systolic ejection quality murmur Extrem Other: 2+ edema Results Last Vital Signs Temp 36.7 C 10/11/23 03:25 Pulse 74 10/11/23 03:25 Resp 25 H 10/11/23 03:25 BP 113/53 L 10/11/23 03:25 Pulse Ox 96 10/11/23 08:21 Labs 10/11/23 05:05 10/11/23 05:05 Labs: Laboratory Results - last 24 hr 10/10/23 10/10/23 10/10/23 23:31 23:36 23:51 WBC 4.83 RBC 4.04 Hgb 10.6 L Hct 34.6 L MCV 86 MCH 26.2 L MCHC 30.6 L RDW 23.3 H Plt Count 52 L MPV Immature Gran % See Differential Neutrophils % 63.0 Band Neutrophils % 2 Lymphocytes % 18.0 Atypical Lymphs % 7 Monocytes % 7.0 Eosinophils % 2.0 Basophils % 0.0 Other Cells % 1 Nucleated RBC % 2.0 H Absolute Neutrophils 3.14 Absolute Lymphocytes 1.21 Absolute Monocytes 0.34 Absolute Eosinophils 0.10 Absolute Basophils 0.00 RBC Morphology See Below Polychromasia Present Hypochromasia 1+ Poikilocytosis 1+ Anisocytosis 2+ Microcytosis 1+ PT INR APTT D-Dimer Sodium 137 Potassium 4.5 Chloride 100 Carbon Dioxide 23.1 Anion Gap 13.9 H BUN 58 H Creatinine 2.2 H Est GFR (CKD-EPI 2020) 22.67 Glucose 216 H Calcium 9.8 Magnesium Total Bilirubin 0.5 AST 25 ALT 19 Alkaline Phosphatase 79 Lactate Dehydrogenase Troponin I 67 H* NT-Pro-B Natriuret Pep 24864 H Total Protein 8.0 Albumin 3.3 L Triglycerides Total Cholesterol LDL Cholesterol, Calc HDL Cholesterol TSH COVID-19 Source Cancelled Nasopharynx SARS-CoV-2 (PCR) Cancelled Negative Influenza Type A (PCR) Cancelled Negative Influenza Type B (PCR) Cancelled Negative RSV (PCR) Cancelled Negative 10/11/23 10/11/23 10/11/23 01:14 04:16 05:05 WBC 4.88 RBC 3.99 Hgb 10.5 L Hct 34.5 L MCV 87 MCH 26.3 L MCHC 30.4 L RDW 23.1 H Plt Count 46 L MPV 9.8 Immature Gran % See Differential Neutrophils % 50.0 Band Neutrophils % 4 Lymphocytes % 10.0 Atypical Lymphs % 4 Monocytes % 26.0 Eosinophils % 3.0 Basophils % 2.0 Other Cells % 1 Nucleated RBC % 3.0 H Absolute Neutrophils 2.64 Absolute Lymphocytes 0.68 L Absolute Monocytes 1.27 H Absolute Eosinophils 0.15 Absolute Basophils 0.10 RBC Morphology See Below Polychromasia Present Hypochromasia Poikilocytosis 2+ Anisocytosis 2+ Microcytosis PT INR APTT D-Dimer Sodium 138 Potassium 3.6 Chloride 100 Carbon Dioxide 25.7 Anion Gap 12.3 H BUN 58 H Creatinine 2.0 H Est GFR (CKD-EPI 2020) 25.41 Glucose 142 H Calcium 10.0 Magnesium 2.1 Total Bilirubin 0.6 AST 22 ALT 18 Alkaline Phosphatase 80 Lactate Dehydrogenase Troponin I 74 H* Cancelled 384 H* NT-Pro-B Natriuret Pep Total Protein 7.9 Albumin 3.3 L Triglycerides 173 H Total Cholesterol 168 LDL Cholesterol, Calc 92 HDL Cholesterol 42 TSH 4.76 H COVID-19 Source SARS-CoV-2 (PCR) Influenza Type A (PCR) Influenza Type B (PCR) RSV (PCR) 10/11/23 08:10 WBC RBC Hgb Hct MCV MCH MCHC RDW Plt Count MPV Immature Gran % Neutrophils % Band Neutrophils % Lymphocytes % Atypical Lymphs % Monocytes % Eosinophils % Basophils % Other Cells % Nucleated RBC % Absolute Neutrophils Absolute Lymphocytes Absolute Monocytes Absolute Eosinophils Absolute Basophils RBC Morphology Polychromasia Hypochromasia Poikilocytosis Anisocytosis Microcytosis PT 14.4 H INR 1.5 H APTT 26.9 D-Dimer > 7500 H Sodium Potassium Chloride Carbon Dioxide Anion Gap BUN Creatinine Est GFR (CKD-EPI 2020) Glucose Calcium Magnesium Total Bilirubin AST ALT Alkaline Phosphatase Lactate Dehydrogenase 406 H Troponin I 1037 H* NT-Pro-B Natriuret Pep Total Protein Albumin Triglycerides Total Cholesterol LDL Cholesterol, Calc HDL Cholesterol TSH COVID-19 Source SARS-CoV-2 (PCR) Influenza Type A (PCR) Influenza Type B (PCR) RSV (PCR)
[2023-10-11] MEDS: Normal Saline Flush 10 ML SYR IVP (12:07)
[2023-10-11 13:03] LABS: Fibrinogen (Stat) (Littleton) 251 mg/dL (208-434)
[2023-10-11] MEDS: Ondansetron 4 MG/2 ML VIAL IVP (13:28)
[2023-10-11] MEDS: Acetaminophen 325 MG TAB PO (13:29)
--- NOTE | 2023-10-11 13:45 | PHACLINREV_ITS ---
Pharmacy Admission Review Admission Clinical Review Admission Pharmacy Review: Mitral regurgitation and aortic stenosis (Acute) NSTEMI (non-ST elevated myocardial infarction) (Acute) Acute hypoxemic respiratory failure (Acute) Cor pulmonale (chronic) (Acute) Acute on chronic heart failure with preserved ejection fraction (HFpEF) (Acute) Complete heart block (Acute 02/2023) CKD (chronic kidney disease) stage 4, GFR 15-29 ml/min (Acute) Hyperlipidemia (Acute) ceftriaxone Allergy (Intermediate, Verified 10/10/23 23:22) Hives aspirin Allergy (Verified 10/10/23 23:22) Hives Penicillins Allergy (Verified 10/10/23 23:22) Hives tetracycline Allergy (Verified 10/10/23 23:22) Hives adhesive Adverse Reaction (Intermediate, Verified 10/10/23 23:22) Topical Irritation Resuscitation Status DNR/DNI Height 4 ft 11 in Weight 101 kg Comments Comments/Follow Ups: pt transferring to [facility] for urgent cardiac evaluation/cath Pharmacy Admission Review Renal Dosing Renal Dosing: BUN 58 mg/dL (7-18) H 10/11/23 05:05 Creatinine 2.0 mg/dL (0.55-1.02) H 10/11/23 05:05 Medications needing adjustments: Reviewed (crcl ~23 (appears to be baseline)) List of meds needing interventions: could consider adjusting home colchicine dose to 0.3 mg daily or 0.6 mg QOD + sucralfate (CrCl <30 mL/minute: No dosage adjustment necessary. However, regular and prolonged use can lead to aluminum accumulation in patients with advanced kidney impairment; use with caution and consider alternative agent (per uptodate)). Eliquis (currently on hold) dosed appropriately for age and wt Anticoagulation Anticoagulation: Hgb 10.5 g/dL (11.2-15.7) L 10/11/23 05:05 Hct 34.5 % (36.0-46.0) L 10/11/23 05:05 Plt Count 46 10^3/uL (130-400) L 10/11/23 05:05 INR 1.5 (0.9-1.1) H 10/11/23 08:10 Creatinine 2.0 mg/dL (0.55-1.02) H 10/11/23 05:05 DVT Prophylaxis: Reviewed (SCDs for now (plt = 46)) Therapeutic Anticoagulation: Reviewed (on eliquis at home (on hold). platelets = 46 this am, platelet transfusion today and recheck at 1600 then plan is to start heparin - plan is for pt to go to [facility] for cath and PCI if needed (NSTEMI)) Opiate Usage Evaluate Pain Scale/Pains Meds: Reviewed (not on opiates) Relevant Labs Relevant Labs: Sodium 138 mmol/L (136-145) 10/11/23 05:05 Potassium 3.6 mmol/L (3.5-5.1) 10/11/23 05:05 Chloride 100 mmol/L (98-107) 10/11/23 05:05 Magnesium 2.1 mg/dL (1.8-2.4) 10/11/23 01:14 Electrolytes, C-Reactive P, ESR: Reviewed (troponin 1037 (trending up), D-dimer >7500, BNP 58334, plt 46 (reviewed chart for any recent heparin use to r/o HIT, did not find any administrations of heparin or LMWH)) DM Control DM Control: Reviewed Insulin Dosing, Diabetic Medication: insulin glargine 25 units QPM + insulin aspart sliding scale w/meals -- home regimen Cardiac Review Cardiac Review: Troponin I 1037 ng/L (< or =60) H* 10/11/23 08:10 NT-Pro-B Natriuret Pep 47586 pg/mL (<300) H 10/10/23 23:31 BP, HR, EF%: Reviewed List meds needing interventions: on heparin drip currently running at 20 mg/hr + nitro drip @ 10.5 mL/hr (35 mcg/min) QTc Review QTc: Reviewed (QTc = 519 ) IV to PO Switch IV Medications: Reviewed Home Meds Home Med List reviewed: Reviewed Current Meds Current Medication Order Review: Reviewed Pharmacy Antibiotic Review Relevant Labs: Relevant Labs 10/11/23 08:10 Lactate Dehydrogenase 406 H Comments Comments/Follow Ups: pt transferring to [facility] for urgent cardiac evaluation/cath
--- NOTE | 2023-10-11 14:48 | DSE_ITS ---
Date of service: 10/11/23 Time of Service: 14:48 DS: Diagnosis Discharge Diagnosis (1) NSTEMI (non-ST elevated myocardial infarction): Status: Acute Asessment and Plan: Patient admitted early in the morning with acute exacerbation of congestive heart failure likely brought on by NSTEMI. However, patient has not been started on aspirin as she has a documented allergy, has not started on the Plavix or heparin due to thrombocytopenia currently of unknown etiology. All of this was discussed with [facility] [place] hematology and cardiology, and at the time of transfer the recommendation was for patient to receive platelet transfusion prior to heparin administration. However, this time at the patient was excepted for transfer and transport was coordinated, patient was still in the process of receiving her platelet transfusion therefore heparin has not yet been initiated. Additionally, patient has had increasing requirements of her nitroglycerin drip, currently at 30 mics, as well as increase and Lasix drip due to increased oxygen requirements. Patient initially was on 1 L nasal cannula but has since been increased to up to 4 L nasal cannula. Given patient's condition it was determined that patient be transferred to [facility] [place] cardiology service for urgent cardiac evaluation and left heart catheterization. (2) Acute hypoxemic respiratory failure: Status: Acute Discharge Plan Disposition Patient Disposition: Transfer-Acute Inpatient Care Specific Acute In Facility: [facility] Condition: Poor Discharge Details Reason For Visit: Acute on chronic CHF, STEMI Admit Date/Time: 10/11/23 01:18 Admit Provider: Yan Caba Attending Provider: Yan Caba Primary Care Provider: Kimberly Nicole Hospital Course Hospital Course: Patient admitted early in the morning with acute exacerbation of congestive heart failure likely brought on by NSTEMI. However, patient has not been started on aspirin as she has a documented allergy, has not started on the Plavix or heparin due to thrombocytopenia currently of unknown etiology. All of this was discussed with [facility] [place] hematology and cardiology, and at the time of transfer the recommendation was for patient to receive platelet transfusion prior to heparin administration. However, this time at the patient was excepted for transfer and transport was coordinated, patient was still in the process of receiving her platelet transfusion therefore heparin has not yet been initiated. Additionally, patient has had increasing requirements of her nitroglycerin drip, currently at 30 mics, as well as increase and Lasix drip due to increased oxygen requirements. Patient initially was on 1 L nasal cannula but has since been increased to up to 4 L nasal cannula. Given patient's condition it was determined that patient be transferred to [facility] [place] cardiology service for urgent cardiac evaluation and left heart catheterization. Home Meds and New Rx's Prescriptions: No Action colchicine 0.6 mg tablet 0.6 mg PO DAILY Qty: 30 3RF (DME) diabetic extra depth shoes See Rx Instructions .Route .MEDSUPPLY Qty: 1 0RF Rx Instructions: As directed (DME) Dexcom G6 Sensor Device See Rx Instructions .MEDSUPPLY Qty: 3 12RF Rx Instructions: As directed (DME) Dexcom G6 Transmitter Device See Rx Instructions .MEDSUPPLY Qty: 1 3RF Rx Instructions: As directed insulin aspart U-100 [Novolog FlexPen U-100 Insulin] 100 unit/mL (3 mL) insulin pen See Rx Instructions subcut TID Qty: 15 5RF Rx Instructions: sliding scale with meals: use 2 units glucose 120-150; 4 units glucose 151- 200; 6 units 201-250; 8 units 251+ subcutaneously three times a day; insulin glargine 100 unit/mL (3 mL) insulin pen 25 unit subcut QPM Qty: 15 12RF acetaminophen [Tylenol] 325 mg tablet 325 - 650 mg PO Q4H PRN PRN (Reason: pain) Qty: 30 0RF magnesium chloride 64 mg tablet,delayed release (DR/EC) 64 mg PO BID Qty: 180 3RF metolazone 5 mg tablet 5 mg PO .COMPLEX Qty: 60 5RF Rx Instructions: Once weekly on Tuesday (DME) blood sugar diagnostic Strip See Dose Instructions .ROUTE .MEDSUPPLY Qty: 400 3RF Dose Instruction: As directed Rx Instructions: use tid and prn.Accu-Chek Smart View Test Strip simvastatin 10 mg tablet 10 mg PO QPM Qty: 90 3RF (DME) 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 -hb sucralfate 1 gram tablet 1 g PO AC & HS Qty: 120 12RF (DME) pen needle, diabetic [BD Ultra-Fine Mini Pen Needle] 31 gauge x 3/16 needle See Rx Instructions .Route Qty: 100 12RF Rx Instructions: As directed qid torsemide 20 mg tablet 40 mg PO DAILY Qty: 60 5RF clotrimazole 1 % cream 1 applic topical BID Qty: 45 2RF Hold Instructions: Prescription Finished Rx Instructions: Apply to affected areas twice a day for 2-4wks Eliquis 5 mg tablet 5 mg PO BID Qty: 60 11RF potassium chloride 20 mEq tablet,ER particles/crystals 40 meq PO BIDWMEAL Qty: 120 5RF levothyroxine 75 mcg tablet 37.5 mcg PO DAILY@0600 Qty: 15 3RF spironolactone 25 mg tablet 25 mg PO DAILY Qty: 90 3RF Patient Comments: TAKE ONE-HALF TABLET BY MOUTH EVERY DAY cholecalciferol (vitamin D3) 25 mcg (1,000 unit) Tablet 1,000 units PO DAILY Qty: 0 0RF Hold Instructions: Pt Stopped/Never Started cyanocobalamin (vitamin B-12) [Vitamin B-12] 500 mcg Tablet 1,000 mcg PO DAILY Qty: 60 0RF Hold Instructions: Pt Stopped/Never Started Discharge Instructions Activity:: Activity as Tolerated Equipment/Supplies:: No Equipment Needed Diet:: As Tolerated Discharge Orders Discharge Orders: Discharge Order (Routine); Ordered 10/11/23 Ordered By: Zack Peterson DS: Summary Time Spent with Patient providing and/or coordinating discharge services: Greater than 30 minutes Status at Discharge Functional status at discharge: independent ambulation Overall status at discharge: patient is not back to baseline Mental Status: mental status grossly normal Speech and Movement: speech and movement normal Mood: congruent mood Affect: normal affect Quality:SDOH Health Related Social Needs: No Data to Display Exam Narrative Exam Narrative: Elderly obese woman laying in bed and mild distress due to chest pain, ANO x 4, heart rate irregularly irregular, lungs with diffuse crackles, abdomen obese but soft, nontender, nondistended Psych Mental Status: mental status grossly normal Speech and Movement: speech and movement normal Mood: congruent mood Affect: normal affect DS: Data Vitals/I&O Vitals and I&O: Vital Signs Temperature 98.1 F 10/11/23 13:35 Temperature Source Temporal Artery Scan 10/11/23 13:35 Pulse 69 10/11/23 12:01 Pulse 70 03/05/24 12:01 Respiratory Rate 25 H 10/11/23 12:01 Respiratory Effort Short of Breath, Labored, Accessory Muscle Use, Incrsd Work of Breathing 10/11/23 13:35 Respiratory Depth Normal 10/11/23 13:35 Respiratory Pattern Tachypnea 10/11/23 13:35 Blood Pressure 101/66 10/11/23 12:01 Blood Pressure Mean 78 10/11/23 12:01 Pulse Oximetry 94 10/11/23 13:35 Oxygen Delivery Method Nasal Cannula 10/11/23 13:35 Oxygen Flow Rate 4 10/11/23 13:35 Pain Level 4 10/11/23 13:35 Intake & Output 10/10/23 10/11/23 10/11/23 17:59 05:59 17:59 Intake Total 40 / 40 1381.559 / 1381.559 Output Total 540 / 540 550 / 550 Balance -500 / -500 831.559 / 831.559 Weight 222 lb 10.67 oz Intake: IV 127.559 / 127.559 Oral 990 / 990 Blood Product 264 / 264 Apheresis Platelets Unit 264 / 264 [id number] Output: Urine 540 / 540 550 / 550 Other: Urine Color Yellow Yellow Urine Appearance Clear Clear Urine Odor None Comment Moore Moore patent, draining, and intact. Pt on IV lasix. Urometer in place. Voiding Methods Indwelling Catheter Data Completed and Pending Labs on day of discharge: Labs from last 24 hours 10/11/23 10/11/23 10/11/23 16:00 08:10 05:05 WBC Pending 4.88 RBC Pending 3.99 Hgb Pending 10.5 L Hct Pending 34.5 L MCV Pending 87 MCH Pending 26.3 L MCHC Pending 30.4 L RDW Pending 23.1 H Plt Count Pending 46 L MPV Pending 9.8 Immature Gran % Pending See Differential Neutrophils % Pending 50.0 Band Neutrophils % 4 Lymphocytes % Pending 10.0 Atypical Lymphs % 4 Monocytes % Pending 26.0 Eosinophils % Pending 3.0 Basophils % Pending 2.0 Other Cells % 1 Nucleated RBC % 3.0 H Absolute Neutrophils Pending 2.64 Absolute Lymphocytes Pending 0.68 L Absolute Monocytes Pending 1.27 H Absolute Eosinophils Pending 0.15 Absolute Basophils Pending 0.10 RBC Morphology See Below Polychromasia Present Hypochromasia Poikilocytosis 2+ Anisocytosis 2+ Microcytosis PT 14.4 H INR 1.5 H APTT 26.9 Fibrinogen 251 D-Dimer > 7500 H Sodium 138 Potassium 3.6 Chloride 100 Carbon Dioxide 25.7 Anion Gap 12.3 H BUN 58 H Creatinine 2.0 H Est GFR (CKD-EPI 2020) 25.41 Glucose 142 H Calcium 10.0 Magnesium Total Bilirubin 0.6 AST 22 ALT 18 Alkaline Phosphatase 80 Lactate Dehydrogenase 406 H Troponin I 1037 H* 384 H* NT-Pro-B Natriuret Pep Total Protein 7.9 Albumin 3.3 L Triglycerides 173 H Total Cholesterol 168 LDL Cholesterol, Calc 92 HDL Cholesterol 42 TSH 4.76 H Hep-Induced Plt Ab Joanne Pending Heparin-PF4 Ab Inhibit Pending Heparin-PF4 Ab Interp Pending Heparin-PF4 Ab Comment Pending COVID-19 Source SARS-CoV-2 (PCR) Influenza Type A (PCR) Influenza Type B (PCR) RSV (PCR) Path Cons Comment Patient ABO/Rh A Negative 10/11/23 10/11/23 10/10/23 04:16 01:14 23:51 WBC RBC Hgb Hct MCV MCH MCHC RDW Plt Count MPV Immature Gran % Neutrophils % Band Neutrophils % Lymphocytes % Atypical Lymphs % Monocytes % Eosinophils % Basophils % Other Cells % Nucleated RBC % Absolute Neutrophils Absolute Lymphocytes Absolute Monocytes Absolute Eosinophils Absolute Basophils RBC Morphology Polychromasia Hypochromasia Poikilocytosis Anisocytosis Microcytosis PT INR APTT Fibrinogen D-Dimer Sodium Potassium Chloride Carbon Dioxide Anion Gap BUN Creatinine Est GFR (CKD-EPI 2020) Glucose Calcium Magnesium 2.1 Total Bilirubin AST ALT Alkaline Phosphatase Lactate Dehydrogenase Troponin I Cancelled 74 H* NT-Pro-B Natriuret Pep Total Protein Albumin Triglycerides Total Cholesterol LDL Cholesterol, Calc HDL Cholesterol TSH Hep-Induced Plt Ab Joanne Heparin-PF4 Ab Inhibit Heparin-PF4 Ab Interp Heparin-PF4 Ab Comment COVID-19 Source Nasopharynx SARS-CoV-2 (PCR) Negative Influenza Type A (PCR) Negative Influenza Type B (PCR) Negative RSV (PCR) Negative Path Cons Comment Patient ABO/Rh 10/10/23 10/10/23 23:36 23:31 WBC 4.83 RBC 4.04 Hgb 10.6 L Hct 34.6 L MCV 86 MCH 26.2 L MCHC 30.6 L RDW 23.3 H Plt Count 52 L MPV Immature Gran % See Differential Neutrophils % 63.0 Band Neutrophils % 2 Lymphocytes % 18.0 Atypical Lymphs % 7 Monocytes % 7.0 Eosinophils % 2.0 Basophils % 0.0 Other Cells % 1 Nucleated RBC % 2.0 H Absolute Neutrophils 3.14 Absolute Lymphocytes 1.21 Absolute Monocytes 0.34 Absolute Eosinophils 0.10 Absolute Basophils 0.00 RBC Morphology See Below Polychromasia Present Hypochromasia 1+ Poikilocytosis 1+ Anisocytosis 2+ Microcytosis 1+ PT INR APTT Fibrinogen D-Dimer Sodium 137 Potassium 4.5 Chloride 100 Carbon Dioxide 23.1 Anion Gap 13.9 H BUN 58 H Creatinine 2.2 H Est GFR (CKD-EPI 2020) 22.67 Glucose 216 H Calcium 9.8 Magnesium Total Bilirubin 0.5 AST 25 ALT 19 Alkaline Phosphatase 79 Lactate Dehydrogenase Troponin I 67 H* NT-Pro-B Natriuret Pep 55945 H Total Protein 8.0 Albumin 3.3 L Triglycerides Total Cholesterol LDL Cholesterol, Calc HDL Cholesterol TSH Hep-Induced Plt Ab Joanne Heparin-PF4 Ab Inhibit Heparin-PF4 Ab Interp Heparin-PF4 Ab Comment COVID-19 Source Cancelled SARS-CoV-2 (PCR) Cancelled Influenza Type A (PCR) Cancelled Influenza Type B (PCR) Cancelled RSV (PCR) Cancelled Path Cons Comment SEE COMMENT Patient ABO/Rh PFSH All Active Problems Thrombocytopenia (Chronic) Mitral regurgitation and aortic stenosis (Acute) Hypoxia (Acute) Elevated troponin (Acute) NSTEMI (non-ST elevated myocardial infarction) (Acute) Insulin-requiring or dependent type II diabetes mellitus (Chronic) Leucopenia (Chronic) Acute hypoxemic respiratory failure (Acute) Cor pulmonale (chronic) (Acute) Acute on chronic heart failure with preserved ejection fraction (HFpEF) (Acute) Ischemia of finger (Acute) (HFpEF) heart failure with preserved ejection fraction (Acute) Cardiac pacemaker (Acute) 04/30/23 placed at [facility] [place] 02/18/23 after AV node ablation causing CHB. Medtronic micra [id number] SERIAL # [id number] Complete heart block (Acute 02/2023) 02/19/23 Per [facility] [place]. Completely dependent on ventricular pace maker. V paced leadless pacer placed at [facility] [place] [place]. 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 Obstructive sleep apnea syndrome (Chronic 09/26/12) DX SEP 2012 AT [facility]; wears CPAP machine. Hypothyroidism (Chronic 12/06/14) Hyperlipidemia (Acute) Essential hypertension (Chronic 08/13/13) Obesity, morbid (Chronic) a. BMI of 52 Medical History Encounter for insertion of cardiac resynchronization therapy pacemaker Right ventricular Per [facility] [place] [place] 02/19/23. -hb 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 tachycardia Diabetic neuropathy Pre-ulcerative corn or callous Bilateral bunions Severe aortic stenosis GI bleed had melena transiently in 02/2021; unable to be evaluated due to AV stenosis. 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 Asthma Gastroesophageal reflux disease Surgical History Status post transcatheter aortic valve replacement (TAVR) using bioprosthesis (~04/2021) Complicated by extravasation of contrast on iliofemoral angiography. 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 Son No problems noted. Social History Smoking/Tobacco Use Status: Former Tobacco Use Quit Date: 08/08/72 Tobacco: How many years used: 4 Second Hand Exposure: No Smoking risk assessment performed?: Yes Alcohol Intake: never Drug use: Never Substance use type: does not use Caregiver/Support person: No Household members: spouse Housing: house Communication Needs: None current occupation: [employer] Pets and animals: Yes Pets and animals: dog(s) Sexually active: Yes Do you think of yourself as: straight/heterosexual Current gender identity: female What is your relationship status?: How often do you talk on the phone with friends or family?: twice per week How often do you get together with friends or relatives?: three or more times per week How often do you attend scientology or christian services?: 4 or more times per year Do you belong to any clubs or organized social groups?: no Panel score (0-1 are the most socially isolated patients): 3 What type of physical activity do you participate in: walking Duration: < 15 minutes/day Frequency: 1-2 times per week Radha/Mu-Ism: Jew Special radha needs: No Seatbelt use: always Drive intox or ride w/intox 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
[2023-10-11 16:31] LABS: Abs Immature Grans 0.06 10^3/uL (0.0-0.06); HGB 10.1 g/dL (11.2-15.7); MCH 26.2 pg (27.0-33.0); MCHC 30.6 % (32.0-36.0); MCV 86 fL (80-95); RBC 3.86 10^6/uL (3.93-5.22); RDW 22.8 % (11.7-14.6); RDW-SD 68.6 fL; WBC 5.03 10^3/uL (4.4-10.8)
--- NOTE | 2023-10-11 16:38 | CHAPLAIN ---
I had a brief visit with Maliha. She is waiting to be transferred to [facility] [place] for cardiac care. She was pleasant, but quiet when I visited. Her Marcell was with her.
[2023-10-11 16:48] LABS: Platelet Count 32 10^3/uL (130-400)
[2023-10-11 16:49] LABS: Absolute Lymphocyte Count 1.91 10^3/uL (1.2-3.4); Absolute Monocyte Count 0.75 10^3/uL (0.1-0.8); Absolute Neutrophil Count 2.36 10^3/uL (1.2-6.7); Anisocytosis 2+; Bands % 1; Diff Comment Manual Differential; Microcytosis 1+; Polychromasia Present
[2023-10-11 16:50] LABS: Poikilocytes 1+
--- NOTE | 2023-10-12 18:11 | NUR.NOTE ---
Addendum entered by Prisca Can 10/12/23 18:17: 3rd EKG order cancelled. 2 in [facility] and 2 documented in ED provider note. Original Note: Accessed pt chart to reconcile EKG discrepancies. Nursing Note:
[2023-10-12 21:02] LABS: HIT ELISA <0.050 OD (<0.400); HIT Interpretation Negative (Negative)
== END 2023-10-11 17:39 | disposition short-term general hospital (02) | DRG 280 ==
LOC: ER 10-11 02:21 → ICU 10-11 02:23
PROVIDERS: Family Medicine; Admitting Provider Internal Medicine; Emergency Provider Emergency Medicine; PCP Family Medicine; Visit Provider Internal Medicine
DX: I13.0 Hypertensive heart and chronic kidney disease with heart failure and stage 1 through stage 4 chronic kidney disease, or unspecified chronic kidney disease (principal); I21.A1 Myocardial infarction type 2; I50.33 Acute on chronic diastolic (congestive) heart failure; J96.01 Acute respiratory failure with hypoxia; I44.2 Atrioventricular block, complete; N18.4 Chronic kidney disease, stage 4 (severe); Z68.42 Body mass index [BMI] 45.0-49.9, adult; D69.6 Thrombocytopenia, unspecified; I08.0 Rheumatic disorders of both mitral and aortic valves; I27.81 Cor pulmonale (chronic); E78.5 Hyperlipidemia, unspecified; E03.9 Hypothyroidism, unspecified; E11.42 Type 2 diabetes mellitus with diabetic polyneuropathy; Z79.4 Long term (current) use of insulin; I25.10 Atherosclerotic heart disease of native coronary artery without angina pectoris; Z95.4 Presence of other heart-valve replacement; Z95.0 Presence of cardiac pacemaker; E11.22 Type 2 diabetes mellitus with diabetic chronic kidney disease; E87.6 Hypokalemia; D50.0 Iron deficiency anemia secondary to blood loss (chronic); G47.33 Obstructive sleep apnea (adult) (pediatric); M1A.9XX0 Chronic gout, unspecified, without tophus (tophi); E66.01 Morbid (severe) obesity due to excess calories; Z66 Do not resuscitate
CPT/HCPCS: 00123; 36415; 51702; 80053; 80061; 85384; 86022; 86900; 86901; 87637; 93005; 93306; 93308; 96374; 96375; 99223; 99285; 71045; 83615; 83735; 83880; 84443; 84484; 85025; 85379; 85610; 85730; 93010; 99235; J1815; J1940; J2305; J2405; J3010; P9035